=== PATIENT | male | born 1970 | race Caucasian/White ===

== ENCOUNTER 2021-10-03 12:25 | Inpatient (IN) | payer OTHER ==
[2021-10-03] MEDS ORDERED: SODIUM CHLORIDE 0.9% 1,000 ML IV ONE (16:05)
[2021-10-03] MEDS ORDERED: ASPIRIN 81 MG ONE (16:24)
[2021-10-03 16:40] LABS: Glucose,Whole Blood 129 mg/dL (75-99)
[2021-10-03] MEDS ORDERED: VERAPAMIL 2.5 MG/ML 2 ML AMP ONE (16:41)
[2021-10-03] MEDS ORDERED: LIDOCAINE 1% INJ 10MG/ML (20 ML MDV) ONE (16:41)
[2021-10-03] MEDS ORDERED: HEPARIN SODIUM 1,000 UN/ML (10ML VL) ONE (16:41)
[2021-10-03] MEDS ORDERED: HEPARIN SODIUM,PORCINE 30 ML 30 ML ONE (16:42)
[2021-10-03] MEDS ORDERED: MIDAZOLAM 2 MG/2 ML VIAL IV ONE (17:42)
[2021-10-03] MEDS ORDERED: LIDOCAINE 1% INJ 10MG/ML (10 ML MDV) SQ ONE (17:43)
[2021-10-03] MEDS ORDERED: VERAPAMIL SYRINGE (5 MG/10 ML) INTRAARTER ONE ×2 (17:45→17:52)
[2021-10-03] MEDS: HEPARIN SODIUM 1,000 UN/ML (10ML VL) IV ONE ×2 (17:56→18:10)
[2021-10-03] MEDS ORDERED: IOPAMIDOL-370 100ML BTL INJ ONE (18:11)
[2021-10-03] MEDS ORDERED: VERAPAMIL SYRINGE (5 MG/10 ML) IV ONE (18:13)
[2021-10-03] MEDS ORDERED: RX INFO: IV CONTRAST WAS GIVEN 1 EACH MISC MISCELLANE PRN (18:21)
[2021-10-03] MEDS ORDERED: SODIUM CHLORIDE 0.9% 1,000 ML IV SCH (18:30)
--- NOTE | 2021-10-03 18:52 | CC ---
CARDIAC CATHETERIZATION REPORT DATE OF SERVICE: 10/03/2021 PERFORMING PHYSICIAN: Benja Bello M.D. PROCEDURES PERFORMED: 1. Selective right and left coronary angiogram. 2. Left heart catheterization. 3. Ultrasound-guided access of the right common femoral artery. INDICATION: This is a 51-year-old gentleman with coronary artery disease and prior revascularization performed several years ago. The patient is not quite sure about the date and does not have any further information about the location where the angioplasty and stenting were performed. He presented to [facility] Emergency Department complaining of chest discomfort for the last few days. He was ruled out for acute coronary event. EKG showed sinus rhythm with T-wave inversion in the high lateral and lateral leads. He underwent a myocardial perfusion imaging stress test and that showed lateral ischemia. In light of that, a heart catheterization was performed. APPROACH: Right radial artery. COMPLICATIONS: None. LEVEL OF SEDATION: Moderate, with sedation length of 32 minutes. PROCEDURE DESCRIPTION: After obtaining informed consent, the patient was brought to the cardiac dental lab technician. The right radial artery was cannulated using micropuncture technique under ultrasound guidance. The micropuncture wire passed easily. Then I placed a 6-Algerian sheath in the right radial artery. I gave the patient 2 mg of verapamil IA and a total of 8000 units of heparin IV. I did selective right and left coronary angiogram using JR4 and JL3.5 catheters. Left heart catheterization was performed using the JR4 catheter, which crossed the aortic valve. Then I did pullback across the valve. The procedure was completed without any complication. SELECTIVE CORONARY ANGIOGRAM: 1. The right coronary artery is a large-caliber vessel and it is a dominant vessel. The RCA is chronically occluded. It fills by bridging collaterals from the left coronary system. 2. The left main is a large left main. It furcates into left circumflex and ramus intermedius and left anterior descending artery. 3. The left circumflex is a large-caliber vessel. It is a nondominant vessel. The proximal left circumflex is angiographically normal. It gives rise to a large OM branch which has a tubular lesion that appeared to be in the range of 80%. The left circumflex continues after that as a moderate-caliber vessel in the AV groove. 4. The ramus intermedius is a large-caliber vessel. The ostial ramus has a lesion, critical, appeared to be in the range of 90% to 95%. 5. The LAD. The proximal LAD appeared to be angiographically normal. The mid LAD has a tubular lesion that appeared to be in the range of 70%. The mid to distal LAD has another tubular lesion that appeared to be in the range of 70% to 80%. The LAD gives rise to a large diagonal branch which has a lesion also in the mid portion that appeared to be in the range of 80%. 6. HEMODYNAMICS: The LVEDP was about 25 mmHg with no significant gradient across the aortic valve. CONCLUSION: 1. Severe triple-vessel coronary artery disease. 2. Chronic total occlusion of the RCA which fills by collaterals from the left coronary system. 3. Critical disease involving the first obtuse marginal branch of the left circumflex. 4. Critical disease involving the ostial ramus intermedius. 5. Intermediate to severe disease involving the mid as well as mid to distal LAD. 6. Elevated left-sided filling pressure. POST-PROCEDURE MANAGEMENT: 1. Given the above anatomy, I advised the patient to be seen by a surgeon for the evaluation of coronary artery bypass grafting. 2. Obtain the previous medical records from [facility]. MMODL / IJN: [id number] /
[2021-10-03] MEDS ORDERED: MELATONIN 3 MG TABLET PO PRN (19:36)
[2021-10-03] MEDS ORDERED: NALOXONE 0.4 MG/ML 1 ML VIAL IV PRN (19:36)
[2021-10-03] MEDS ORDERED: CALCIUM CARBONATE 500 MG CHEWABLE PO PRN (19:36)
[2021-10-03] MEDS ORDERED: LORazepam 0.5 MG TAB PO PRN (19:36)
[2021-10-03] MEDS ORDERED: LACTULOSE 20 GM/30 ML CUP PO PRN (19:36)
[2021-10-03] MEDS ORDERED: ACETAMINOPHEN TAB 325 MG TAB PO PRN (19:36)
[2021-10-03] MEDS ORDERED: ONDANSETRON 4 MG/2 ML VIAL IVP PRN (19:36)
[2021-10-03] MEDS ORDERED: METOPROLOL TARTRATE 50 MG TAB PO SCH (21:00)
[2021-10-03] MEDS: INSULIN ASPART (NovoLOG) 100 UNIT/ML VIAL SQ SCH (21:15)
[2021-10-03 23:23] LABS: Calcium 8.5 mg/dL (8.4-10.2); Potassium 4.4 mmol/L (3.5-5.1)
[2021-10-04] MEDS ORDERED: SODIUM CHLORIDE 0.9% 1,000 ML IV SCH (06:47)
[2021-10-04] MEDS ORDERED: ALPRAZolam 0.25 MG TAB PO PRN (06:47)
[2021-10-04] MEDS ORDERED: ATORVASTATIN 80 MG TAB PO STA (06:47)
[2021-10-04] MEDS ORDERED: ALPRAZolam 0.5 MG TAB PO PRN (06:47)
[2021-10-04] MEDS ORDERED: ASPIRIN 325 MG TAB PO STA (06:47)
[2021-10-04] MEDS ORDERED: RX INFO: IV CONTRAST WAS GIVEN 1 EACH MISC MISCELLANE PRN (06:47)
[2021-10-04] MEDS: PANTOPRAZOLE 40 MG TABLET PO SCH (07:07)
[2021-10-04 07:09] LABS: Glucose,Whole Blood 118 mg/dL (75-99)
[2021-10-04] MEDS: METOPROLOL TARTRATE 25 MG TAB PO SCH ×2 (08:32→20:51)
[2021-10-04] MEDS: lisinopriL 20 MG TAB PO SCH (08:32)
[2021-10-04] MEDS: SPIRONOLACTONE 25 MG TAB PO SCH (08:33)
[2021-10-04] MEDS: amLODIPine 5 MG TAB PO SCH (08:33)
[2021-10-04] MEDS: allopurinoL 100 MG TAB PO SCH (08:33)
[2021-10-04] MEDS: ASPIRIN 325 MG TAB PO SCH (08:34)
[2021-10-04] MEDS: ISOSORBIDE MONONITRATE ER 60 MG TAB.ER.24H PO SCH (08:40)
[2021-10-04 08:43] LABS: Basophils # (A) 0.1 k/uL (0-0.2); Basophils % (A) 1 %; Eosinophils # (A) 0.3 k/uL (0-0.7); Eosinophils % (A) 5 %; HCT 35.8 % (39.0-53.0); HGB 11.9 gm/dL (13.0-17.5); Hypochromasia Slight; Lymphocytes # (A) 1.2 k/uL (1.0-4.8); Lymphocytes % (A) 20 %; MCH 30.2 pg (25.0-35.0); MCHC 33.1 g/dL (31.0-37.0); MCV 91.3 fL (80.0-100.0); Mean Platelet Volume 7.8; Monocytes # (A) 0.3 k/uL (0-1.0); Monocytes % (A) 5 %; Neutrophils # (A) 4.3 k/uL (1.3-7.7); Neutrophils % (A) 69 %; Platelet Count 189 k/uL (150-450); RBC 3.93 m/uL (4.30-5.90); RDW 14.2 % (11.5-15.5); WBC 6.3 k/uL (3.8-10.6)
[2021-10-04 08:53] LABS: ALT 15 U/L (4-49); AST 22 U/L (17-59); African American GFR (CKD) 59 (>60 ml/min/1.73 sqM); Albumin 3.6 g/dL (3.5-5.0); Alkaline Phosphatase 72 U/L (38-126); Anion Gap 6 mmol/L; Blood Urea Nitrogen 28 mg/dL (9-20); Calcium 8.7 mg/dL (8.4-10.2); Carbon Dioxide 25 mmol/L (22-30); Chloride 108 mmol/L (98-107); Glucose 137 mg/dL (74-99); Magnesium 1.7 mg/dL (1.6-2.3); Non-African American GFR(CKD) 51 (>60 ml/min/1.73 sqM); Potassium 4.6 mmol/L (3.5-5.1); Sodium 139 mmol/L (137-145); Total Bilirubin 0.4 mg/dL (0.2-1.3); Total Protein 6.5 g/dL (6.3-8.2)
[2021-10-04] MEDS ORDERED: glipiZIDE 5 MG TAB PO SCH (09:00)
[2021-10-04] MEDS ORDERED: ATORVASTATIN 20 MG TAB PO SCH (09:00)
--- NOTE | 2021-10-04 09:12 | XR ---
EXAMINATION TYPE: XR chest 2V DATE OF EXAM: 10/04/2021 COMPARISON: NONE HISTORY: Preop open heart surgical study study. TECHNIQUE: Frontal and lateral views of the chest are obtained. FINDINGS: There is no focal air space opacity, pleural effusion, or pneumothorax seen. The cardiac silhouette size is upper limits of normal. Overlying EKG leads. The osseous structures are intact. IMPRESSION: No acute cardiopulmonary process.
[2021-10-04 09:38] LABS: INR 0.9 (<1.2); Partial Thromboplastin Time 23.6 sec (22.0-30.0); Prothrombin Time 9.9 sec (9.0-12.0)
--- NOTE | 2021-10-04 09:38 | P.GSCN ---
History of Present Illness Consult date: 10/04/21 Reason for Consult: Triple-vessel coronary artery disease Requesting physician: Benja Bello History of present illness: This is a 51-year-old gentleman who was recently released from 15 years incarceration approximate 3 months ago, who follows on an outpatient basis with Dr. Hansen for primary care. He has a previous medical history of coronary artery disease with myocardial infarction and previous stenting 5, most recently 2008, hypertension, hyperlipidemia, fqu-nqtjhtj-tcfibecsh diabetes, chronic kidney disease stage III, obstructive sleep apnea currently not using CPAP, anemia, gout, GERD, current light tobacco dependence, and family history of premature coronary artery disease with both parents diagnosed before the age of 60. He experienced an episode of chest pain with shortness of breath and lightheadedness which woke him from sleep. He states the pain was similar to his past heart attack. He presented to [facility] for evaluation and treatment. His troponin was negative. He was recommended to undergo stress testing which demonstrated lateral ischemia. Subsequently he was transported to [facility] for cardiac catheterization which demonstrated chronic total occlusion of right coronary artery with collateral circulation from the left system, mid LAD stenosis 70%, distal LAD stenosis 70-80%, ostial ramus 90-95%, and obtuse marginal stenosis 80%. Due to these findings consultation was placed to cardiothoracic surgery for surgical revascularization recommendations. Review of Systems Review of systems was completed and was negative except as noted - Cardiovascular Reports as per HPI, Reports chest pain, Reports dyspnea on exertion, Reports leg edema, Reports lightheadedness, Reports shortness of breath Past Medical History Past Medical History: Asthma, Coronary Artery Disease (CAD), Chest Pain / Angina, Heart Failure, Diabetes Mellitus, GERD/Reflux, Hyperlipidemia, Hypertension, Myocardial Infarction ([place]), Renal Disease, Sleep Apnea/CPAP/BIPAP Last Myocardial Infarction Date:: 2008 History of Any Multi-Drug Resistant Organisms: None Reported Past Surgical History: Adenoidectomy, Heart Catheterization With Stent, Tonsillectomy Additional Past Surgical History / Comment(s): cardiac stents x 5 Past Anesthesia/Blood Transfusion Reactions: Postoperative Nausea & Vomiting (PONV) Past Psychological History: ADD/ADHD, Anxiety, Bipolar, Depression, PTSD Smoking Status: Current every day smoker Past Alcohol Use History: None Reported Past Drug Use History: None Reported Additional History: Reportedly smokes 3-4 cigarettes per day, has smoked for the last 40 years, states he quit ranking and all drugs 30 years ago - Past Family History Father Family Medical History: Cancer, Coronary Artery Disease (CAD), Myocardial Infarction ([place]) Additional Family Medical History / Comment(s): at age 68 from mesothelioma, diagnosis of heart disease age of 60 Mother Family Medical History: Cancer, Coronary Artery Disease (CAD), Diabetes Mellitus, Liver Disease, Myocardial Infarction ([place]) Additional Family Medical History / Comment(s): from liver cancer, diagnosed with heart disease before the age of 60 Medications and Allergies Home Medications Medication Instructions Recorded Confirmed Type Allopurinol [Zyloprim] 100 mg PO DAILY 10/03/21 10/03/21 History Aspirin 325 mg PO DAILY 10/03/21 10/03/21 History Atorvastatin [Lipitor] 20 mg PO HS 10/03/21 10/03/21 History Isosorbide Mononitrate ER [Imdur] 60 mg PO DAILY 10/03/21 10/03/21 History Metoprolol Tartrate [Lopressor] 100 mg PO BID 10/03/21 10/03/21 History Omeprazole 20 mg PO AC-BRKFST 10/03/21 10/03/21 History Spironolactone 25 mg PO DAILY 10/03/21 10/03/21 History amLODIPine [Norvasc] 5 mg PO DAILY 10/03/21 10/03/21 History glipiZIDE [Glucotrol] 5 mg PO DAILY 10/03/21 10/03/21 History lisinopriL 40 mg PO DAILY 10/03/21 10/03/21 History Allergies Allergy/AdvReac Type Severity Reaction Status Date / Time Penicillins Allergy Swelling Verified 10/03/21 21:11 Sulfa (Sulfonamide Allergy Swelling Verified 10/03/21 21:11 Antibiotics) Surgical - Exam Vital Signs Pulse Resp BP Pulse Ox 60 18 142/88 96 10/03/21 16:05 10/03/21 16:05 10/03/21 16:05 10/03/21 16:05 CONSTITUTIONAL: Awake and alert, appears comfortable, cooperative, well- developed, well-nourished, no pain, no acute distress EYES: Pupils equal, round, reactive to light, normal ocular movement ENT: Moist mucous membranes without oral lesions present NECK: No masses, no bruits, trachea midline RESPIRATORY: Lungs sounds clear to auscultation bilaterally. Respirations even, nonlabored. Currently on room air with oxygen saturation 95%. Strong cough. No chest wall deformities. No clubbing or cyanosis present CARDIOVASCULAR: S1, S2 present. Regular rate and rhythm, sinus rhythm on telemetry. Palpable peripheral pulses bilaterally. Bilateral lower extremity edema present. No calf pain or tenderness noted. No significant lower ex tremity varicosities noted. GASTROINTESTINAL: Abdomen soft, nontender, nondistended without masses or organomegaly noted. There is no rebound or guarding present. Active bowel sounds present 4 quadrants. GENITOURINARY: Deferred INTEGUMENTARY: Skin is warm and dry with evidence of good perfusion. NEUROLOGIC: Cranial nerves II through XII intact, normal coordination, no obvious motor or sensory deficits, speech is normal MUSKULOSKELETAL: Able to move all extremities, strength equal bilaterally, normal posture PSYCHIATRIC: Alert and oriented to person place and time, appropriate affect, intact judgment and insight Results - Labs 10/04/21 08:03 10/04/21 08:03 Abnormal Lab Results - Last 24 Hours (Table) 10/03/21 10/03/21 10/04/21 Range/Units 16:39 22:02 07:04 RBC (4.30-5.90) m/uL Hgb (13.0-17.5) gm/dL Hct (39.0-53.0) % Sodium 136 L (137-145) mmol/L Chloride (98-107) mmol/L BUN 31 H (9-20) mg/dL Creatinine 1.61 H (0.66-1.25) mg/dL Glucose 162 H (74-99) mg/dL POC Glucose (mg/dL) 129 H 118 H (75-99) mg/dL 10/04/21 10/04/21 Range/Units 08:03 08:03 RBC 3.93 L (4.30-5.90) m/uL Hgb 11.9 L (13.0-17.5) gm/dL Hct 35.8 L (39.0-53.0) % Sodium (137-145) mmol/L Chloride 108 H (98-107) mmol/L BUN 28 H (9-20) mg/dL Creatinine 1.55 H (0.66-1.25) mg/dL Glucose 137 H (74-99) mg/dL POC Glucose (mg/dL) (75-99) mg/dL Diabetes panel 10/03/21 10/04/21 Range/Units 22:02 08:03 Sodium 136 L 139 (137-145) mmol/L Potassium 4.4 4.6 (3.5-5.1) mmol/L Chloride 106 108 H (98-107) mmol/L Carbon Dioxide 24 25 (22-30) mmol/L BUN 31 H 28 H (9-20) mg/dL Creatinine 1.61 H 1.55 H (0.66-1.25) mg/dL Glucose 162 H 137 H (74-99) mg/dL Calcium 8.5 8.7 (8.4-10.2) mg/dL AST 22 (17-59) U/L ALT 15 (4-49) U/L Alkaline Phosphatase 72 (38-126) U/L Total Protein 6.5 (6.3-8.2) g/dL Albumin 3.6 (3.5-5.0) g/dL Thyroid panel 10/04/21 Range/Units 08:03 TSH 1.670 (0.465-4.680) mIU/L Calcium panel 10/03/21 10/04/21 Range/Units 22:02 08:03 Calcium 8.5 8.7 (8.4-10.2) mg/dL Albumin 3.6 (3.5-5.0) g/dL Pituitary panel 10/03/21 10/04/21 Range/Units 22:02 08:03 Sodium 136 L 139 (137-145) mmol/L Potassium 4.4 4.6 (3.5-5.1) mmol/L Chloride 106 108 H (98-107) mmol/L Carbon Dioxide 24 25 (22-30) mmol/L BUN 31 H 28 H (9-20) mg/dL Creatinine 1.61 H 1.55 H (0.66-1.25) mg/dL Glucose 162 H 137 H (74-99) mg/dL Calcium 8.5 8.7 (8.4-10.2) mg/dL TSH 1.670 (0.465-4.680) mIU/L Adrenal panel 10/03/21 10/04/21 Range/Units 22:02 08:03 Sodium 136 L 139 (137-145) mmol/L Potassium 4.4 4.6 (3.5-5.1) mmol/L Chloride 106 108 H (98-107) mmol/L Carbon Dioxide 24 25 (22-30) mmol/L BUN 31 H 28 H (9-20) mg/dL Creatinine 1.61 H 1.55 H (0.66-1.25) mg/dL Glucose 162 H 137 H (74-99) mg/dL Calcium 8.5 8.7 (8.4-10.2) mg/dL Total Bilirubin 0.4 (0.2-1.3) mg/dL AST 22 (17-59) U/L ALT 15 (4-49) U/L Alkaline Phosphatase 72 (38-126) U/L Total Protein 6.5 (6.3-8.2) g/dL Albumin 3.6 (3.5-5.0) g/dL - Imaging Chest x-ray: report reviewed, image reviewed Additional studies: Heart catheterization films reviewed Assessment and Plan Assessment: 1. Coronary artery disease with previous myocardial infarction and previous stenting 5, most recently 2008, 2. Chest pain, shortness of breath secondary to above 3. Hypertension 4. Hyperlipidemia, 5. Gfm-gylstyr-khmhvgevw diabetes 6. Chronic kidney disease stage III 7. Obstructive sleep apnea currently not using CPAP 8. Anemia 9. Gout 10. GERD 11. Current light tobacco dependence 12. Family history of premature coronary artery disease with both parents diagnosed before the age of 60 13. Vaccinated and boosted against Covid Plan: The patient was seen and examined at the bedside on the cardiac stepdown unit sitting up eating breakfast in no acute distress. Chart/diagnostics were reviewed including available chart from [facility]. The case was discussed with Dr. Renee. The usual perioperative course of coronary artery bypass surgery was discussed in detail with the patient, risks and benefits were reviewed, all questions were answered. The patient does consent to surgery. Preoperative testing was initiated. Recommend continuing aspirin, statin, beta brandy therapy. We'll calculate STS risk score once all testing has been completed. 5 meter walk test completed, #1 5.77 sec, #2 5.84 sec, #3 5.51 sec. Medical management of other comorbidities per primary care service. More recommendations to follow. Thank you Dr. Lynn for this consult. We look forward to working with you in the care of your patient Time with Patient: Greater than 30
--- NOTE | 2021-10-04 10:09 | US ---
EXAMINATION TYPE: US carotid duplex BILAT DATE OF EXAM: 10/04/2021 COMPARISON: NONE CLINICAL HISTORY: preop cardiac surgery. pre op cardiac surgery EXAM MEASUREMENTS: RIGHT: Peak Systolic Velocity (PSV) cm/sec ----- Right CCA: 49.6 ----- Right ICA: 62.5 ----- Right ECA: 107.3 ICA/CCA ratio: 1.3 RIGHT: End Diastole cm/sec ----- Right CCA: 13.9 ----- Right ICA: 25.2 ----- Right ECA: 14.1 LEFT: Peak Systolic Velocity (PSV) cm/sec ----- Left CCA: 54.9 ----- Left ICA: 92.2 ----- Left ECA: 142.0 ICA/CCA ratio: 1.7 LEFT: End Diastole cm/sec ----- Left CCA: 17.4 ----- Left ICA: 37.3 ----- Left ECA: 14.4 VERTEBRALS (direction of flow): Right Vertebral: Antegrade Left Vertebral: Antegrade Rhythm: Normal Mild plaque bilateral bifurcations. slightly increased velocities left ECA Esparza scale images show mild peripheral eccentric plaque bilateral carotid bulb level . Velocity demetrius surements and ratios remain within normal limits. IMPRESSION: Mild atherosclerotic changes bilaterally without hemodynamically significant stenosis se en in either internal carotid artery . Criteria for Assigning % of Stenosis / Diameter reduction (Estimation based on the indirect measurements of the internal carotid artery velocities (ICA PSV). 1. Normal (no stenosis)=ICA PSV < 125 cm/s: ratio < 2.0: ICA EDV<40 cm/s. 2. Less than 50% stenosis=ICA PSV < 125 cm/s: ratio < 2.0: ICA EDV<40 cm/s. 3. 50 to 69% stenosis=ICA PSV of 125 to 230 cm/s: ration 2.0 ? 4.0: ICA EDV 40-100 cm/s. 4. Greater than 70% stenosis to near occlusion= ICA PSV > 230 cm/s: ratio > 4.0: ICA EDV > 100 cm/s. 5. Near occlusion= ICA PSV velocities may be low or undetectable: variable ratio and ICA EDV. 6. Total occlusion=unable to detect flow.
--- NOTE | 2021-10-04 10:53 | ECHOF ---
Referral Reason:preop cabg MEASUREMENTS -------- HEIGHT: 180.3 cm WEIGHT: 126.6 kg BP: IVSd: 1.5 cm (0.6 - 1.1) LVIDd: 4.4 cm (3.9 - 5.3) LVPWd: 1.8 cm (0.6 - 1.1) IVSs: 2.3 cm LVIDs: 2.0 cm LVPWs: 2.4 cm Ao Diam: 3.4 cm (2.0 - 3.7) AV Cusp: 1.8 cm (1.5 - 2.6) LA Diam: 2.8 cm (2.7 - 3.8) MV EXCURSION: 17.354 mm (> 18.000) MV EF SLOPE: 96 mm/s (70 - 150) EPSS: 1.0 cm MV E David: 0.63 m/s MV DecT: 270 ms MV A David: 0.50 m/s MV E/A Ratio: 1.27 RAP: 5.00 mmHg RVSP: 17.74 mmHg FINDINGS -------- This was a technically difficult study with suboptimal views. The left ventricular size is normal. There is moderate concentric left ventricular hypertrophy. O verall left ventricular systolic function is normal with, an EF between 55 - 60 %. The right ventricle is normal in size. The left atrial size is normal. The right atrial size is normal. Lumason used The aortic valve is trileaflet and appears structurally normal. The mitral valve is normal. Mild mitral regurgitation is present. The tricuspid valve appears structurally normal. Trace tricuspid regurgitation present. Right poncho tricular systolic pressure is normal at < 35 mmHg. There is no pulmonic regurgitation present. The aortic root size is normal. IVC Not well visulized. There is no pericardial effusion. CONCLUSIONS -------- 1. The left ventricular size is normal. 2. There is moderate concentric left ventricular hypertrophy. 3. Overall left ventricular systolic function is normal with, an EF between 55 - 60 %. 4. Mild mitral regurgitation is present. 5. Trace tricuspid regurgitation present. 6. There is no pericardial effusion. STAFF READINESS OFFICER: Karissa Moses [facility]
[2021-10-04] MEDS: INSULIN ASPART (NovoLOG) 100 UNIT/ML VIAL SQ SCH ×4 (11:33→20:51)
[2021-10-04 12:13] LABS: Glucose,Whole Blood 70 mg/dL (75-99)
[2021-10-04 12:18] LABS: Hepatitis A Antibody IgM Nonreactive (Nonreactive); Hepatitis B Core IgM Nonreactive (Nonreactive); Hepatitis B Surface Antigen Nonreactive (Nonreactive); Hepatitis C IgG Antibody Nonreactive (Nonreactive)
[2021-10-04 12:28] LABS: Glucose,Whole Blood 99 mg/dL (75-99)
--- NOTE | 2021-10-04 14:11 | P.CRDCN ---
History of Present Illness History of present illness: HISTORY OF PRESENTING ILLNESS Patient is a pleasant 51-year-old male with history of coronary artery disease with prior myocardial infarction and stenting most recently in 2008, hypertension, hyperlipidemia, diabetes mellitus, COPD, obstructive sleep apnea, anemia, tobacco abuse who has been having intermittent chest pain and therefore underwent stress testing which was abnormal. He was transferred from [facility] and had heart catheterization which showed multivessel disease and therefore CABG workup was recommended. Carotid ultrasound performed today showed some mild disease bilaterally. Echo performed yesterday shows EF 55-60%. PHYSICAL EXAMINATION Vital signs reviewed. CONSTITUTIONAL: No apparent distress. HEENT: Head is normocephalic. Pupils are equal, round. Sclerae anicteric. Mucous membranes of the mouth are moist. No JVD. No carotid bruit. CHEST EXAMINATION: Lungs are clear to auscultation. No chest wall tenderness is noted on palpation or with deep breathing. HEART EXAMINATION: Regular rate and rhythm. S1, S2 heard. No murmurs, gallops or rub. ABDOMEN: Soft, nontender. Positive bowel sounds. EXTREMITIES: 2+ peripheral pulses, no lower extremity edema and no calf tenderness. NEUROLOGIC EXAMINATION: Patient is awake, alert and oriented x3. ASSESSMENT 1. Multivessel CAD 2. Chest pain concerning for unstable angina 3. Hypertension 4. Hyperlipidemia 5. Diabetes mellitus type 2 6. Tobacco abuse 7. COPD 8. Mild CKD PLAN Continue with surgical workup for CABG. Echo shows preserved EF without significant valvular disease. Continue with aspirin and increase Lipitor to a high intensity statin with 40 mg daily. Continue beta brandy with metoprolol 25 mg twice a day. Monitor for any recurrence of chest pain. Further recommendations to follow. Past Medical History Past Medical History: Asthma, Coronary Artery Disease (CAD), Chest Pain / Angina, Heart Failure, Diabetes Mellitus, GERD/Reflux, Hyperlipidemia, Hypertension, Myocardial Infarction ([place]), Renal Disease, Sleep Apnea/CPAP/BIPAP Last Myocardial Infarction Date:: 2008 History of Any Multi-Drug Resistant Organisms: None Reported Past Surgical History: Adenoidectomy, Heart Catheterization With Stent, Tonsillectomy Additional Past Surgical History / Comment(s): cardiac stents x 5 Past Anesthesia/Blood Transfusion Reactions: Postoperative Nausea & Vomiting (PONV) Past Psychological History: ADD/ADHD, Anxiety, Bipolar, Depression, PTSD Smoking Status: Current every day smoker Past Alcohol Use History: None Reported Past Drug Use History: None Reported - Past Family History Father Family Medical History: Cancer, Coronary Artery Disease (CAD), Myocardial Infarction ([place]) Additional Family Medical History / Comment(s): at age 68 from mesothelioma, diagnosis of heart disease age of 60 Mother Family Medical History: Cancer, Coronary Artery Disease (CAD), Diabetes Mellitus, Liver Disease, Myocardial Infarction ([place]) Additional Family Medical History / Comment(s): from liver cancer, diagnosed with heart disease before the age of 60 Medications and Allergies Home Medications Medication Instructions Recorded Confirmed Type Allopurinol [Zyloprim] 100 mg PO DAILY 10/03/21 10/03/21 History Aspirin 325 mg PO DAILY 10/03/21 10/03/21 History Atorvastatin [Lipitor] 20 mg PO HS 10/03/21 10/03/21 History Isosorbide Mononitrate ER [Imdur] 60 mg PO DAILY 10/03/21 10/03/21 History Metoprolol Tartrate [Lopressor] 100 mg PO BID 10/03/21 10/03/21 History Omeprazole 20 mg PO AC-BRKFST 10/03/21 10/03/21 History Spironolactone 25 mg PO DAILY 10/03/21 10/03/21 History amLODIPine [Norvasc] 5 mg PO DAILY 10/03/21 10/03/21 History glipiZIDE [Glucotrol] 5 mg PO DAILY 10/03/21 10/03/21 History lisinopriL 40 mg PO DAILY 10/03/21 10/03/21 History Allergies Allergy/AdvReac Type Severity Reaction Status Date / Time Penicillins Allergy Swelling Verified 10/03/21 21:11 Sulfa (Sulfonamide Allergy Swelling Verified 10/03/21 21:11 Antibiotics) Physical Exam Vitals: Vital Signs Temp Pulse Pulse Resp BP BP Pulse Ox 10/04/21 12:00 97.5 F L 60 18 146/80 97 10/04/21 08:30 98.1 F 56 L 16 138/80 97 10/04/21 04:00 98.1 F 59 L 18 135/82 95 10/04/21 01:24 56 L 18 10/04/21 00:00 98.2 F 56 L 18 119/65 10/03/21 20:00 98.1 F 59 L 59 L 18 127/77 98 10/03/21 18:51 57 L 16 168/78 96 10/03/21 18:41 98.7 F 10/03/21 18:36 63 16 161/79 98 10/03/21 16:05 60 18 142/88 145/85 96 Intake and Output 10/03/21 10/04/21 10/04/21 22:59 06:59 14:59 Intake Total 650 240 Balance 650 240 Intake: IV 650 Oral 240 Other: # Voids 1 Weight 127 kg Results 10/04/21 08:03 10/04/21 08:03 Cardiac Enzymes 10/04/21 Range/Units 08:03 AST 22 (17-59) U/L Coagulation 10/04/21 Range/Units 08:03 PT 9.9 (9.0-12.0) sec APTT 23.6 (22.0-30.0) sec CBC 10/04/21 Range/Units 08:03 WBC 6.3 (3.8-10.6) k/uL RBC 3.93 L (4.30-5.90) m/uL Hgb 11.9 L (13.0-17.5) gm/dL Hct 35.8 L (39.0-53.0) % Plt Count 189 (150-450) k/uL Comprehensive Metabolic Panel 10/03/21 10/04/21 Range/Units 22:02 08:03 Sodium 136 L 139 (137-145) mmol/L Potassium 4.4 4.6 (3.5-5.1) mmol/L Chloride 106 108 H (98-107) mmol/L Carbon Dioxide 24 25 (22-30) mmol/L BUN 31 H 28 H (9-20) mg/dL Creatinine 1.61 H 1.55 H (0.66-1.25) mg/dL Glucose 162 H 137 H (74-99) mg/dL Calcium 8.5 8.7 (8.4-10.2) mg/dL AST 22 (17-59) U/L ALT 15 (4-49) U/L Alkaline Phosphatase 72 (38-126) U/L Total Protein 6.5 (6.3-8.2) g/dL Albumin 3.6 (3.5-5.0) g/dL Current Medications Generic Name Dose Route Start Last Admin Trade Name Freq PRN Reason Stop Dose Admin Acetaminophen 650 mg 10/03/21 19:36 Acetaminophen Tab 325 Mg Tab PO Q6HR PRN Mild Pain or Fever > 100.5 Allopurinol 100 mg 10/04/21 09:00 10/04/21 08:33 Allopurinol 100 Mg Tab PO 100 mg DAILY [facility] Administration Alprazolam 0.25 mg 10/04/21 06:47 Alprazolam 0.25 Mg Tab PO Q6HR PRN Mild Anxiety Alprazolam 0.5 mg 10/04/21 06:47 Alprazolam 0.5 Mg Tab PO Q6HR PRN Moderate Anxiety Amlodipine Besylate 5 mg 10/04/21 09:00 10/04/21 08:33 Amlodipine 5 Mg Tab PO 5 mg DAILY [facility] Administration Aspirin 325 mg 10/04/21 09:00 10/04/21 08:34 Aspirin 325 Mg Tab PO Not Given DAILY NAYELY Atorvastatin Calcium 20 mg 10/04/21 09:00 10/04/21 08:34 Atorvastatin 20 Mg Tab PO Not Given DAILY [facility] Calcium Carbonate/Glycine 1,000 mg 10/03/21 19:36 Calcium Carbonate 500 Mg Chewable PO Q4HR PRN Dyspepsia Glipizide 5 mg 10/04/21 09:00 10/04/21 08:32 Glipizide 5 Mg Tab PO 5 mg DAILY [facility] Administration Sodium Chloride 1,000 ml/ IV 1,000 mls @ 127 mls/hr 10/04/21 06:47 Solution IV .Q7H53M NAYELY 1 ML/KG/HR Insulin Aspart 0 unit 10/03/21 21:00 10/04/21 12:27 Insulin Aspart (Novolog) 100 Unit/Ml Vial SQ Not Given ACHS [facility] Protocol Isosorbide Mononitrate 60 mg 10/04/21 09:00 10/04/21 08:40 Isosorbide Mononitrate Er 60 Mg Tab.Er.24h PO 60 mg DAILY [facility] Administration Lactulose 20 gm 10/03/21 19:36 Lactulose 20 Gm/30 Ml Cup PO DAILY PRN Constipation Lisinopril 40 mg 10/04/21 09:00 10/04/21 08:32 Lisinopril 20 Mg Tab PO 40 mg DAILY NAY[facility] Administration Lorazepam 0.5 mg 10/03/21 19:36 Lorazepam 0.5 Mg Tab PO Q6HR PRN Anxiety Melatonin 3 mg 10/03/21 19:36 Melatonin 3 Mg Tablet PO HS PRN Insomnia Metoprolol Tartrate 25 mg 10/04/21 09:00 10/04/21 08:32 Metoprolol Tartrate 25 Mg Tab PO 25 mg BID NAYELY Administration Miscellaneous Information 1 each 10/03/21 18:21 Rx Info: Iv Contrast Was Given [address] [facility] MISCELLANE 10/05/21 18:21 DAILY PRN Per Protocol Miscellaneous Information 1 each 10/04/21 06:47 Rx Info: Iv Contrast Was Given [address] [facility] MISCELLANE 10/06/21 18:18 DAILY PRN Per Protocol Mupirocin 1 applic 10/04/21 21:00 Mupirocin 2% Oint 22 Gm Tube NASAL BID [facility] Protocol Naloxone HCl 0.2 mg 10/03/21 19:36 Naloxone 0.4 Mg/Ml 1 Ml Vial IV Q2M PRN Opioid Reversal Nitroglycerin 0.4 mg 10/04/21 06:47 Nitroglycerin Sl Tabs 0.4 Mg Tab SUBLINGUAL Q5M PRN Chest Pain Ondansetron HCl 4 mg 10/03/21 19:36 Ondansetron 4 Mg/2 Ml Vial IVP Q8HR PRN Nausea And Vomiting Pantoprazole Sodium 40 mg 10/04/21 07:30 10/04/21 07:07 Pantoprazole 40 Mg Tablet PO 40 mg AC-BRKFST [facility] Administration Spironolactone 25 mg 10/04/21 09:00 10/04/21 08:33 Spironolactone 25 Mg Tab PO 25 mg DAILY [facility] Administration Intake and Output 10/03/21 10/04/21 10/04/21 22:59 06:59 14:59 Intake Total 650 240 Balance 650 240 Intake: IV 650 Oral 240 Other: # Voids 1 Weight 127 kg 10/04/21 08:03 10/04/21 08:03
--- NOTE | 2021-10-04 14:36 | P.CNPUL ---
History of Present Illness Consult date: 10/04/21 Requesting physician: Reggie Bravo Reason for consult: dyspnea, chest pain Chief complaint: Coronary artery disease. History of present illness: Pulmonary/critical care consult dated 10/04/2021. 51-year-old male with history of CAD, prior myocardial infarction, and stenting, 2008, as well as hypertension, hyperlipidemia, diabetes, COPD, sleep apnea, anemia, and chronic tobacco use, who had a catheterization at [facility]. It showed multivessel coronary artery disease, and the patient is apparently being evaluated for possible eye past grafting. The patient's currently not receiving any supplemental oxygen. The patient is on saline IV at [facility]. He has smoked for many years. The patient apparently has recently been out of detention, and is currently wearing a tender. He apparently has been incarcerated for 15 years. She denies any shortness of breath, cough, wheezing, or phlegm production. He denies ever being diagnosed as having COPD. Currently labs include a white count 6.3, hemoglobin 11.9, hematocrit 35.8, and a platelet count of 189,000. Sodium 139, potassium 4.6, chlorides 108, CO2 25, anion gap 6, BUN 28, creatinine 1.55. Testing for coronavirus was negative. TSH is normal. Chest x-ray shows no acute pulmonary process. Review of Systems REVIEW OF SYSTEMS: CONSTITUTIONAL: [Negative.] NEUROLOGIC: Lightheadedness. HEENT: [ Negative.] CARDIAC: Chest pain. PULMONARY: Shortness of breath. GI: [Negative.] : [Negative.] RHEUMATOLOGIC: [ Negative.] IMMUNOLOGIC: [ Negative.] ENDOCRINE: [Negative. ] DERMATOLOGIC: [Negative.] Past Medical History Past Medical History: Asthma, Coronary Artery Disease (CAD), Chest Pain / Angina, Heart Failure, Diabetes Mellitus, GERD/Reflux, Hyperlipidemia, Hypertension, Myocardial Infarction ([place]), Renal Disease, Sleep Apnea/CPAP/BIPAP Last Myocardial Infarction Date:: 2008 History of Any Multi-Drug Resistant Organisms: None Reported Past Surgical History: Adenoidectomy, Heart Catheterization With Stent, Tonsillectomy Additional Past Surgical History / Comment(s): cardiac stents x 5 Past Anesthesia/Blood Transfusion Reactions: Postoperative Nausea & Vomiting (PONV) Past Psychological History: ADD/ADHD, Anxiety, Bipolar, Depression, PTSD Smoking Status: Current every day smoker Past Alcohol Use History: None Reported Past Drug Use History: None Reported - Past Family History Father Family Medical History: Cancer, Coronary Artery Disease (CAD), Myocardial Infarction ([place]) Additional Family Medical History / Comment(s): at age 68 from mesothelioma, diagnosis of heart disease age of 60 Mother Family Medical History: Cancer, Coronary Artery Disease (CAD), Diabetes Mellitus, Liver Disease, Myocardial Infarction ([place]) Additional Family Medical History / Comment(s): from liver cancer, diagnosed with heart disease before the age of 60 Medications and Allergies Home Medications Medication Instructions Recorded Confirmed Type Allopurinol [Zyloprim] 100 mg PO DAILY 10/03/21 10/03/21 History Aspirin 325 mg PO DAILY 10/03/21 10/03/21 History Atorvastatin [Lipitor] 20 mg PO HS 10/03/21 10/03/21 History Isosorbide Mononitrate ER [Imdur] 60 mg PO DAILY 10/03/21 10/03/21 History Metoprolol Tartrate [Lopressor] 100 mg PO BID 10/03/21 10/03/21 History Omeprazole 20 mg PO AC-BRKFST 10/03/21 10/03/21 History Spironolactone 25 mg PO DAILY 10/03/21 10/03/21 History amLODIPine [Norvasc] 5 mg PO DAILY 10/03/21 10/03/21 History glipiZIDE [Glucotrol] 5 mg PO DAILY 10/03/21 10/03/21 History lisinopriL 40 mg PO DAILY 10/03/21 10/03/21 History Allergies Allergy/AdvReac Type Severity Reaction Status Date / Time Penicillins Allergy Swelling Verified 10/03/21 21:11 Sulfa (Sulfonamide Allergy Swelling Verified 10/03/21 21:11 Antibiotics) Physical Exam Osteopathic Statement: *. No significant issues noted on an osteopathic structural exam other than those noted in the History and Physical/Consult. Vitals: Vital Signs Temp Pulse Pulse Resp BP BP Pulse Ox 10/04/21 12:00 97.5 F L 60 18 146/80 97 10/04/21 08:30 98.1 F 56 L 16 138/80 97 10/04/21 04:00 98.1 F 59 L 18 135/82 95 10/04/21 01:24 56 L 18 10/04/21 00:00 98.2 F 56 L 18 119/65 10/03/21 20:00 98.1 F 59 L 59 L 18 127/77 98 10/03/21 18:51 57 L 16 168/78 96 10/03/21 18:41 98.7 F 10/03/21 18:36 63 16 161/79 98 10/03/21 16:05 60 18 142/88 145/85 96 Intake and Output 10/03/21 10/04/21 10/04/21 22:59 06:59 14:59 Intake Total 650 240 Balance 650 240 Intake: IV 650 Oral 240 Other: # Voids 1 Weight 127 kg No acute distress, oriented 3. Not on any supplemental oxygen. Saturations are 97%. HEENT examination is grossly unremarkable. Neck supple. Full range of motion. No adenopathy thyromegaly or neck vein distention. Cardiovascular examination reveals regular rhythm rate. S1-S2 normal. No S3 or S4. No discernible murmur noted. Heart rate 60 bpm. Lungs reveal clear breath sounds. Breath sounds are equal bilaterally. No adventitious lung sounds including wheezes rhonchi or crackles. Abdomen soft bowel sounds are heard. No masses or tenderness. Extremities are intact. No cyanosis clubbing or edema. He is wearing a tether on his ankle. Skin is without rash or lesion. Neurologic examination is brief but nonfocal. Results - Laboratory Findings CBC and BMP: 10/04/21 08:03 10/04/21 08:03 PT/INR, D-dimer PT 9.9 sec (9.0-12.0) 10/04/21 08:03 INR 0.9 (<1.2) 10/04/21 08:03 Abnormal lab findings: Abnormal Labs 10/03/21 10/03/21 10/04/21 16:39 22:02 07:04 RBC Hgb Hct Sodium 136 L Chloride BUN 31 H Creatinine 1.61 H Glucose 162 H POC Glucose (mg/dL) 129 H 118 H 10/04/21 10/04/21 10/04/21 08:03 08:03 12:09 RBC 3.93 L Hgb 11.9 L Hct 35.8 L Sodium Chloride 108 H BUN 28 H Creatinine 1.55 H Glucose 137 H POC Glucose (mg/dL) 70 L - Diagnostic Findings Chest x-ray: image reviewed Assessment and Plan Assessment: Multivessel coronary artery disease, with anticipated bypass grafting, next week. History of CAD, with previous stent placement. History of myocardial infarction, 2009. Essential hypertension. Hyperlipidemia. Diabetes mellitus. Suspected COPD from chronic tobacco use. Sleep apnea syndrome. History of anemia. Plan: Plan dated 10/04/2021. The patient is counseled about the importance of smoking cessation. The patient will have a bedside spirometry. Additional recommendations and suggestions are forthcoming. I did explain to the patient, our role in bypass grafting and open-heart patient's. He did seem to understand. We'll continue to follow. He denies a prior history of chronic lung disease. He is a heavy smoker and is been smoking for many years. He states he is down to 3 or 4 cigarettes a day. Time with Patient: Greater than 30
[2021-10-04 17:28] LABS: Glucose,Whole Blood 103 mg/dL (75-99)
--- NOTE | 2021-10-04 19:02 | P.HPIM ---
History of Present Illness H&P Date: 10/04/21 Chief Complaint: Chest pain Presenting complaint: Chest pain History of presenting complaint: This is a 51-year-old patient was chronic stable medical conditions include diab etes mellitus type 2, hypertension, CK D stage III, GERD, gout with known coronary artery disease and prior 5 stents. Patient had been present for 15 years really has not prolonged cold. He was being followed at the halfway physician. Patient presented to [facility] with chest hour left- sided precordial pain. Admitted with unstable angina. Put on IV heparin. Troponins were negative. Patient was transferred to [facility] in [place] for further intervention. Patient had a nuclear stress test that showed reversibility. Patient yesterday underwent cardiac catheterization was found to have triple-vessel disease. Cardiothoracic surgery's been consulted. Currently no chest pain. 2-D echo showed EF of 55-60% Review of systems: GEN.: Tired EYES: None HEENT: None NECK: None RESPIRATORY: Some shortness of breath CARDIOVASCULAR: As above GASTROINTESTINAL: None GENITOURINARY: None MUSCULOSKELETAL: None LYMPHATICS: None HEMATOLOGICAL: None PSYCHIATRY: None NEUROLOGICAL: None Past medical history to include: Diabetes mellitus type 2, CAD with 5 stents, hypertension, CK D stage III, GERD, gout, obstructive sleep apnea, bipolar Social history: Patient average 3-4 packs a day for close to 40 years. Now a few cigarettes a day. Currently living at half a house. Was in the halfway doctor recently for last 15 years. Family history: Mesothelioma, heart disease Physical examination: VITAL SIGNS: 97.5, 60, 18, 146/80, 97% room air GENERAL: BMI 40.2, reclining, awake, comfortable. EYES: Pupils equal. Conjunctiva normal. HEENT: External appearance of nose and ears normal, oral cavity grossly normal. NECK: JVD not raised; masses not palpable. HEART: First and second heart sounds are normal; no edema. LUNGS: Respiratory rate normal; decreased breath sounds. ABDOMEN: Soft, nontender, liver spleen not palpable, no masses palpable. PSYCH: Alert and oriented x3; mood and affect normal. NEUROLOGICAL: Cranial nerves grossly intact; no facial asymmetry, power and sensation grossly intact. LYMPHATICS: No lymph nodes palpable in the axilla and neck INVESTIGATIONS, reviewed in the clinical context: White count is 6.3 hemoglobin 11.9 platelets 189 sodium 139 potassium 4.6 BUN 28 creatinine 1.55 Accu-Cheks noted HbA1c 6.3 TSH 1.6 Acute hepatitis panel for A, B, and C: Not reactive Coronavirus [PCR]: Not detected 2-D echocardiogram: Moderate concentric LVH. EF 55-60% Chest x-ray film personally reviewed by me-cardiomegaly. Telemetry tracings personally reviewed by me: Sinus rhythm, T-wave changes Assessment and plan: -Unstable angina in a patient with known coronary artery disease -Triple-vessel coronary artery disease following cardiac catheterization Being evaluated by cardiothoracic surgery for coronary bypass -Coronary artery disease with prior 5 stents Aspirin 325 mg a day, Lipitor 40 mg daily, Zestril 40 mg daily, Lopressor 25 mg twice a day -COPD in a previous smoker DuoNeb 3 times a day -Chronic kidney disease stage III likely from diabetic nephropathy and nephrosclerosis Follow renal function closely. Given cardiac catheterization IV fluids. -Diabetes mellitus type 2 on oral hypoglycemic Hold glipizide. Start Levemir.. Follow Accu-Cheks -Essential hypertension Amlodipine 5 mg a day Lopressor 25 mg twice a day Zestril 40 mg a day -Chronic gout Allopurinol 100 mg a day -Morbid obesity BMI 40.2 Consultation to cardiothoracic surgery. Cardiology. Continue current medications. Follow renal function. Follow Accu-Cheks. Care was discussed with the patient. Increase Lipitor to 80 mg. DC glipizide. Start Levemir 20 units subcu daily at bedtime with sliding scale. Given the complexity and severity of patient's condition expect the patient to be in the hospital at least for 2 overnights Past Medical History Past Medical History: Asthma, Coronary Artery Disease (CAD), Chest Pain / Angina, Heart Failure, Diabetes Mellitus, GERD/Reflux, Hyperlipidemia, Hyper tension, Myocardial Infarction ([place]), Renal Disease, Sleep Apnea/CPAP/BIPAP Last Myocardial Infarction Date:: 2008 History of Any Multi-Drug Resistant Organisms: None Reported Past Surgical History: Adenoidectomy, Heart Catheterization With Stent, Tonsillectomy Additional Past Surgical History / Comment(s): cardiac stents x 5 Past Anesthesia/Blood Transfusion Reactions: Postoperative Nausea & Vomiting (PONV) Past Psychological History: ADD/ADHD, Anxiety, Bipolar, Depression, PTSD Smoking Status: Current every day smoker Past Alcohol Use History: None Reported Past Drug Use History: None Reported - Past Family History Father Family Medical History: Cancer, Coronary Artery Disease (CAD), Myocardial Infarction ([place]) Additional Family Medical History / Comment(s): at age 68 from meso thelioma, diagnosis of heart disease age of 60 Mother Family Medical History: Cancer, Coronary Artery Disease (CAD), Diabetes Mellitus, Liver Disease, Myocardial Infarction ([place]) Additional Family Medical History / Comment(s): from liver cancer, diagnosed with heart disease before the age of 60 Medications and Allergies Home Medications Medication Instructions Recorded Confirmed Type Allopurinol [Zyloprim] 100 mg PO DAILY 10/03/21 10/03/21 History Aspirin 325 mg PO DAILY 10/03/21 10/03/21 History Atorvastatin [Lipitor] 20 mg PO HS 10/03/21 10/03/21 History Isosorbide Mononitrate ER [Imdur] 60 mg PO DAILY 10/03/21 10/03/21 History Metoprolol Tartrate [Lopressor] 100 mg PO BID 10/03/21 10/03/21 History Omeprazole 20 mg PO AC-BRKFST 10/03/21 10/03/21 History Spironolactone 25 mg PO DAILY 10/03/21 10/03/21 History amLODIPine [Norvasc] 5 mg PO DAILY 10/03/21 10/03/21 History glipiZIDE [Glucotrol] 5 mg PO DAILY 10/03/21 10/03/21 History lisinopriL 40 mg PO DAILY 10/03/21 10/03/21 History Allergies Allergy/AdvReac Type Severity Reaction Status Date / Time Penicillins Allergy Swelling Verified 10/03/21 21:11 Sulfa (Sulfonamide Allergy Swelling Verified 10/03/21 21:11 Antibiotics) Physical Exam Vitals: Vital Signs Temp Pulse Pulse Resp BP BP Pulse Ox 10/04/21 08:30 98.1 F 56 L 16 138/80 97 10/04/21 04:00 98.1 F 59 L 18 135/82 95 10/04/21 01:24 56 L 18 10/04/21 00:00 98.2 F 56 L 18 119/65 10/03/21 20:00 98.1 F 59 L 59 L 18 127/77 98 10/03/21 18:51 57 L 16 168/78 96 10/03/21 18:41 98.7 F 10/03/21 18:36 63 16 161/79 98 10/03/21 16:05 60 18 142/88 145/85 96 Intake and Output 10/03/21 10/04/21 10/04/21 22:59 06:59 14:59 Intake Total 650 240 Balance 650 240 Intake: IV 650 Oral 240 Other: # Voids 1 Weight 127 kg Results CBC & Chem 7: 10/04/21 08:03 10/04/21 08:03 Labs: Abnormal Lab Results - Last 24 Hours (Table) 10/03/21 10/03/21 10/04/21 Range/Units 16:39 22:02 07:04 RBC (4.30-5.90) m/uL Hgb (13.0-17.5) gm/dL Hct (39.0-53.0) % Sodium 136 L (137-145) mmol/L Chloride (98-107) mmol/L BUN 31 H (9-20) mg/dL Creatinine 1.61 H (0.66-1.25) mg/dL Glucose 162 H (74-99) mg/dL POC Glucose (mg/dL) 129 H 118 H (75-99) mg/dL 10/04/21 10/04/21 Range/Units 08:03 08:03 RBC 3.93 L (4.30-5.90) m/uL Hgb 11.9 L (13.0-17.5) gm/dL Hct 35.8 L (39.0-53.0) % Sodium (137-145) mmol/L Chloride 108 H (98-107) mmol/L BUN 28 H (9-20) mg/dL Creatinine 1.55 H (0.66-1.25) mg/dL Glucose 137 H (74-99) mg/dL POC Glucose (mg/dL) (75-99) mg/dL Thrombosis Risk Factor Assmnt - Choose All That Apply Each Factor Represents 1 point: Acute DC, Age 41-60 years, Obesity (BMI >25) Thrombosis Risk Factor Assessment Total Risk Factor Score: 3 Thrombosis Risk Factor Assessment Level: Moderate Risk
[2021-10-04] MEDS: SODIUM CHLORIDE 0.9% 1,000 ML in EMPTY BAG 1 BAG IV SCH (19:35)
[2021-10-04 20:51] LABS: Glucose,Whole Blood 114 mg/dL (75-99)
[2021-10-04] MEDS: MUPIROCIN 2% OINT 22 GM TUBE NASAL SCH (20:51)
[2021-10-05] MEDS: PANTOPRAZOLE 40 MG TABLET PO SCH (06:17)
[2021-10-05 06:18] LABS: Glucose,Whole Blood 120 mg/dL (75-99)
[2021-10-05] MEDS: INSULIN ASPART (NovoLOG) 100 UNIT/ML VIAL SQ SCH ×4 (06:18→20:11)
[2021-10-05 07:33] LABS: Chol/HDL Ratio 5.15 Ratio; LDL Cholesterol,Calculated 59.2 mg/dL (0.0-131.0)
--- NOTE | 2021-10-05 08:07 | P.PN ---
Subjective Progress Note Date: 10/05/21 Principal diagnosis: Triple-vessel coronary artery disease. Previous medical history of coronary artery disease with previous myocardial infarction and previous stenting 5, hypertension, hyperlipidemia, [id number] diabetes, chronic kidney disease stage III, obstructive sleep apnea currently not using CPAP, anemia, gout, GERD, current light tobacco dependence, family history of premature coronary artery disease with both parents diagnosed before the age of 60, vac cinated and boosted against Covid The patient was seen and examined this morning sitting up in bed on the cardiac stepdown unit in no acute distress eating breakfast. Denies any chest pain or shortness of breath. States he has been able to be ambulatory in his room without difficulty. Remains on room air and achieving 2000 mL on his incentive spirometry. He was seen by Dr. Renee yesterday who discussed recommendations for cardiac surgery and patient is agreeable. Plan is for open heart surgery early this week. Objective - Vital Signs Vital signs: Vital Signs Temp 98 F 10/04/21 19:50 Pulse 65 10/05/21 03:50 Resp 18 10/05/21 03:50 BP 117/72 10/05/21 03:50 Pulse Ox 95 10/05/21 03:50 Intake & Output 10/04/21 10/05/21 10/05/21 18:59 06:59 18:59 Intake Total 240 Balance 240 Intake: Oral 240 Other: # Voids 2 2 - Exam CONSTITUTIONAL: Appears comfortable, cooperative, no acute distress RESPIRATORY: Lungs sounds diminished bilaterally. Respirations even, nonlabored. Currently on room air with oxygen saturation 95%. Able to achieve 2000 mL on incentive spirometry. Strong cough. CARDIOVASCULAR: S1, S2 present. Regular rate and rhythm, sinus rhythm on telemetry. Palpable peripheral pulses bilaterally. Bilateral lower extremity edema present. No calf pain or tenderness noted. GASTROINTESTINAL: Abdomen soft, nontender, nondistended. Active bowel sounds present 4 quadrants. Tolerating diet. GENITOURINARY: Continues to void INTEGUMENTARY: Skin is warm and dry with evidence of good perfusion. NEUROLOGIC: Cranial nerves II through XII intact MUSKULOSKELETAL: Able to move all extremities, strength equal bilaterally, gait normal PSYCHIATRIC: Alert and oriented to person place and time, appropriate affect, intact judgment and insight - Allied health notes Allied health notes reviewed: nursing - Labs CBC & Chem 7: 10/05/21 07:31 10/05/21 07:31 Labs: Abnormal Lab Results - Last 24 Hours (Table) 10/04/21 10/04/21 10/04/21 Range/Units 08:03 08:03 08:03 RBC 3.93 L (4.30-5.90) m/uL Hgb 11.9 L (13.0-17.5) gm/dL Hct 35.8 L (39.0-53.0) % Chloride 108 H (98-107) mmol/L BUN 28 H (9-20) mg/dL Creatinine 1.55 H (0.66-1.25) mg/dL Glucose 137 H (74-99) mg/dL POC Glucose (mg/dL) (75-99) mg/dL Hemoglobin A1c 6.3 H (4.0-6.0) % Triglycerides 260.00 H (0.00-149.00) mg/dL VLDL Cholesterol, Calc 52.00 H (5.00-40.00) mg/dL HDL Cholesterol 26.80 L (40.00-60.00) mg/dL 10/04/21 10/04/21 10/04/21 Range/Units 12:09 17:19 20:50 RBC (4.30-5.90) m/uL Hgb (13.0-17.5) gm/dL Hct (39.0-53.0) % Chloride (98-107) mmol/L BUN (9-20) mg/dL Creatinine (0.66-1.25) mg/dL Glucose (74-99) mg/dL POC Glucose (mg/dL) 70 L 103 H 114 H (75-99) mg/dL Hemoglobin A1c (4.0-6.0) % Triglycerides (0.00-149.00) mg/dL VLDL Cholesterol, Calc (5.00-40.00) mg/dL HDL Cholesterol (40.00-60.00) mg/dL 10/05/21 Range/Units 06:17 RBC (4.30-5.90) m/uL Hgb (13.0-17.5) gm/dL Hct (39.0-53.0) % Chloride (98-107) mmol/L BUN (9-20) mg/dL Creatinine (0.66-1.25) mg/dL Glucose (74-99) mg/dL POC Glucose (mg/dL) 120 H (75-99) mg/dL Hemoglobin A1c (4.0-6.0) % Triglycerides (0.00-149.00) mg/dL VLDL Cholesterol, Calc (5.00-40.00) mg/dL HDL Cholesterol (40.00-60.00) mg/dL Microbiology - Last 24 Hours (Table) 10/04/21 12:46 Nasal Screen MRSA/MSSA - Preliminary Nasal Swab - Imaging and Cardiology Chest x-ray: report reviewed, image reviewed Assessment and Plan Assessment: 1. Coronary artery disease with previous myocardial infarction and previous stenting 5, most recently 2008, 2. Chest pain, shortness of breath secondary to above 3. Hypertension 4. Hyperlipidemia, treated, cholesterol 138, LDL 59.2, triglycerides 260 5. Jcm-zzynurh-sjvjtzlgx diabetes, hemoglobin A1c 6.3% 6. Chronic kidney disease stage III 7. Obstructive sleep apnea currently not using CPAP 8. Anemia 9. Gout 10. GERD 11. Current light tobacco dependence, mild COPD with FEV1 62% of predicted 12. Family history of premature coronary artery disease with both parents diagnosed before the age of 60 13. Vaccinated and boosted against Covid Plan: 1. Continue aspirin, statin, beta brandy therapy 2. Encourage incentive spirometry use. Encourage smoking cessation 3. Continue preoperative teaching 4. Pulmonology consulted for clearance, await FEV1 5. Plan is for surgical myocardial revascularization with left internal mammary artery, endoscopic left radial artery harvest as well as endoscopic vein harvest and exclusion of the left atrial appendage to be completed early this week 6. We will need to contact the patient's first officer and flight instructor to have leg tether removed for surgery. We will call Wednesday 7. Increase activity as tolerated 8. Medical management of other comorbidities per primary care service 9. More recommendations to follow Time with Patient: Greater than 30
[2021-10-05 08:24] LABS: HCT 35.4 % (39.0-53.0); HGB 11.5 gm/dL (13.0-17.5); Hypochromasia Slight; MCH 29.9 pg (25.0-35.0); MCHC 32.4 g/dL (31.0-37.0); MCV 92.3 fL (80.0-100.0); Mean Platelet Volume 7.7; Platelet Count 195 k/uL (150-450); RBC 3.83 m/uL (4.30-5.90); RDW 14.8 % (11.5-15.5); WBC 5.4 k/uL (3.8-10.6)
[2021-10-05 08:38] LABS: Calcium 8.8 mg/dL (8.4-10.2); Potassium 4.6 mmol/L (3.5-5.1)
[2021-10-05] MEDS: SPIRONOLACTONE 25 MG TAB PO SCH (08:53)
[2021-10-05] MEDS: amLODIPine 5 MG TAB PO SCH (08:53)
[2021-10-05] MEDS: allopurinoL 100 MG TAB PO SCH (08:53)
[2021-10-05] MEDS: ASPIRIN 325 MG TAB PO SCH (08:53)
[2021-10-05] MEDS: MUPIROCIN 2% OINT 22 GM TUBE NASAL SCH ×2 (08:53→20:10)
[2021-10-05] MEDS: ISOSORBIDE MONONITRATE ER 60 MG TAB.ER.24H PO SCH (08:53)
[2021-10-05] MEDS: lisinopriL 20 MG TAB PO SCH (08:53)
[2021-10-05] MEDS: METOPROLOL TARTRATE 25 MG TAB PO SCH ×2 (08:53→20:11)
[2021-10-05] MEDS ORDERED: ATORVASTATIN 40 MG TAB PO SCH (09:00)
--- NOTE | 2021-10-05 10:20 | P.PN ---
Subjective Progress Note Date: 10/05/21 HISTORY OF PRESENTING ILLNESS Patient is a pleasant 51-year-old male with history of coronary artery disease with prior myocardial infarction and stenting most recently in 2008, hypertension, hyperlipidemia, diabetes mellitus, COPD, obstructive sleep apnea, anemia, tobacco abuse who has been having intermittent chest pain and therefore underwent stress testing which was abnormal. He was transferred from [facility] and had heart catheterization which showed multivessel disease and therefore CABG workup was recommended. Carotid ultrasound performed today showed some mild disease bilaterally. Echo performed yesterday shows EF 55-60%. 10/05 Patient denies having any chest pain or pressure. He states he has been ambulating without symptoms, no lightheadedness or dizziness. Cardiothoracic team is following for CABG, waiting for schedule. PHYSICAL EXAMINATION Vital signs reviewed. CONSTITUTIONAL: No apparent distress. HEENT: Head is normocephalic. Pupils are equal, round. Sclerae anicteric. Mucous membranes of the mouth are moist. No JVD. No carotid bruit. CHEST EXAMINATION: Lungs are clear to auscultation. No chest wall tenderness is noted on palpation or with deep breathing. HEART EXAMINATION: Regular rate and rhythm. S1, S2 heard. No murmurs, gallops or rub. ABDOMEN: Soft, nontender. Positive bowel sounds. EXTREMITIES: 2+ peripheral pulses, no lower extremity edema and no calf tenderness. NEUROLOGIC EXAMINATION: Patient is awake, alert and oriented x3. ASSESSMENT 1. Multivessel CAD 2. Chest pain concerning for unstable angina 3. Hypertension 4. Hyperlipidemia 5. Diabetes mellitus type 2 6. Tobacco abuse 7. COPD 8. Mild CKD PLAN Continue with surgical workup for CABG. Echo shows preserved EF without significant valvular disease. Continue with aspirin and increase Lipitor to a high intensity statin with 40 mg daily. Continue beta brandy with metoprolol 25 mg twice a day. Monitor for any recurrence of chest pain. Further recommendations to follow. Nurse practitioner note has been reviewed by physician. Signing provider agrees with the documented findings, assessment, and plan of care. Objective - Vital Signs Vital signs: Vital Signs Temp 97.9 F 10/05/21 08:50 Pulse 63 10/05/21 08:50 Resp 18 10/05/21 08:50 BP 134/77 10/05/21 08:50 Pulse Ox 96 10/05/21 08:50 Intake & Output 10/04/21 10/05/21 10/05/21 18:59 06:59 18:59 Intake Total 240 Balance 240 Intake: Oral 240 Other: # Voids 2 2 - Labs CBC & Chem 7: 10/05/21 07:31 10/05/21 07:31 Labs: Abnormal Lab Results - Last 24 Hours (Table) 10/04/21 10/04/21 10/04/21 Range/Units 08:03 08:03 12:09 RBC (4.30-5.90) m/uL Hgb (13.0-17.5) gm/dL Hct (39.0-53.0) % BUN (9-20) mg/dL Creatinine (0.66-1.25) mg/dL Glucose (74-99) mg/dL POC Glucose (mg/dL) 70 L (75-99) mg/dL Hemoglobin A1c 6.3 H (4.0-6.0) % Triglycerides 260.00 H (0.00-149.00) mg/dL VLDL Cholesterol, Calc 52.00 H (5.00-40.00) mg/dL HDL Cholesterol 26.80 L (40.00-60.00) mg/dL 10/04/21 10/04/21 10/05/21 Range/Units 17:19 20:50 06:17 RBC (4.30-5.90) m/uL Hgb (13.0-17.5) gm/dL Hct (39.0-53.0) % BUN (9-20) mg/dL Creatinine (0.66-1.25) mg/dL Glucose (74-99) mg/dL POC Glucose (mg/dL) 103 H 114 H 120 H (75-99) mg/dL Hemoglobin A1c (4.0-6.0) % Triglycerides (0.00-149.00) mg/dL VLDL Cholesterol, Calc (5.00-40.00) mg/dL HDL Cholesterol (40.00-60.00) mg/dL 10/05/21 10/05/21 Range/Units 07:31 07:31 RBC 3.83 L (4.30-5.90) m/uL Hgb 11.5 L (13.0-17.5) gm/dL Hct 35.4 L (39.0-53.0) % BUN 27 H (9-20) mg/dL Creatinine 1.67 H (0.66-1.25) mg/dL Glucose 153 H (74-99) mg/dL POC Glucose (mg/dL) (75-99) mg/dL Hemoglobin A1c (4.0-6.0) % Triglycerides (0.00-149.00) mg/dL VLDL Cholesterol, Calc (5.00-40.00) mg/dL HDL Cholesterol (40.00-60.00) mg/dL Microbiology - Last 24 Hours (Table) 10/04/21 12:46 Nasal Screen MRSA/MSSA - Preliminary Nasal Swab
[2021-10-05 11:51] LABS: Glucose,Whole Blood 139 mg/dL (75-99)
--- NOTE | 2021-10-05 12:31 | P.PN ---
Subjective Progress Note Date: 10/05/21 Principal diagnosis: Coronary artery disease. Pulmonary/critical care consult dated 10/04/2021. 51-year-old male with history of CAD, prior myocardial infarction, and stenting, 2008, as well as hypertension, hyperlipidemia, diabetes, COPD, sleep apnea, anemia, and chronic tobacco use, who had a catheterization at [facility]. It showed multivessel coronary artery disease, and the patient is apparently being evaluated for possible eye past grafting. The patient's currently not receiving any supplemental oxygen. The patient is on saline IV at [facility]. He has smoked for many years. The patient apparently has recently been out of halfway, and is currently wearing a tender. He apparently has been incarcerated for 15 years. She denies any shortness of breath, cough, wheezing, or phlegm production. He denies ever being diagnosed as having COPD. Currently labs include a white count 6.3, hemoglobin 11.9, hematocrit 35.8, and a platelet count of 189,000. Sodium 139, potassium 4.6, chlorides 108, CO2 25, anion gap 6, BUN 28, creatinine 1.55. Testing for coronavirus was negative. TSH is normal. Chest x-ray shows no acute pulmonary process. Progress note dated 10/05/2021. 51-year-old male with history of CAD, myocardial infarction, hypertension, hyp erlipidemia, diabetes, COPD, sleep apnea, anemia, and chronic tobacco use, who had a recent catheterization at [facility]. It showed multivessel coronary artery disease. The patient is currently being evaluated for bypass grafting, sometime this next week. The patient did smoke for many years. Actually though, lung function are quite good. FEV1 is 2.41 L, FVC is 2.77 L, and MVV is 90.4 L/m. Based on these data, the patient said no increased operative risk from the lung standpoint. The patient's resting comfortably. He's on room air. He's not receiving any IV fluids. White count 5.4, hemoglobin 11.5, hematocrit 35.4, and platelet count 195,000. Sodium 137, potassium 4.6, chlorides 106, CO2 25, anion gap 6, BUN 27, and creatinine 1.67. Calcium 8.8. The patient is not having any symptoms at this time including chest pain. Objective - Vital Signs Vital signs: Vital Signs Temp 97.9 F 10/05/21 08:50 Pulse 63 10/05/21 08:50 Resp 18 10/05/21 08:50 BP 134/77 10/05/21 08:50 Pulse Ox 96 10/05/21 08:50 Intake & Output 10/04/21 10/05/21 10/05/21 18:59 06:59 18:59 Intake Total 240 120 Balance 240 120 Intake: Oral 240 120 Other: # Voids 2 2 - Exam No acute distress, oriented 3. Not on any supplemental oxygen. Saturations are 96%. HEENT examination is grossly unremarkable. Neck supple. Full range of motion. No adenopathy thyromegaly or neck vein distention. Cardiovascular examination reveals regular rhythm rate. S1-S2 normal. No S3 or S4. No discernible murmur noted. Heart rate 63 bpm. Lungs reveal clear breath sounds. Breath sounds are equal bilaterally. No adventitious lung sounds including wheezes rhonchi or crackles. Abdomen soft bowel sounds are heard. No masses or tenderness. Extremities are intact. No cyanosis clubbing or edema. He is wearing a tether on his ankle. Skin is without rash or lesion. Neurologic examination is brief but nonfocal. - Labs CBC & Chem 7: 10/05/21 07:31 10/05/21 07:31 Labs: Abnormal Lab Results - Last 24 Hours (Table) 10/04/21 10/04/21 10/04/21 Range/Units 08:03 08:03 17:19 RBC (4.30-5.90) m/uL Hgb (13.0-17.5) gm/dL Hct (39.0-53.0) % BUN (9-20) mg/dL Creatinine (0.66-1.25) mg/dL Glucose (74-99) mg/dL POC Glucose (mg/dL) 103 H (75-99) mg/dL Hemoglobin A1c 6.3 H (4.0-6.0) % Triglycerides 260.00 H (0.00-149.00) mg/dL VLDL Cholesterol, Calc 52.00 H (5.00-40.00) mg/dL HDL Cholesterol 26.80 L (40.00-60.00) mg/dL 10/04/21 10/05/21 10/05/21 Range/Units 20:50 06:17 07:31 RBC 3.83 L (4.30-5.90) m/uL Hgb 11.5 L (13.0-17.5) gm/dL Hct 35.4 L (39.0-53.0) % BUN (9-20) mg/dL Creatinine (0.66-1.25) mg/dL Glucose (74-99) mg/dL POC Glucose (mg/dL) 114 H 120 H (75-99) mg/dL Hemoglobin A1c (4.0-6.0) % Triglycerides (0.00-149.00) mg/dL VLDL Cholesterol, Calc (5.00-40.00) mg/dL HDL Cholesterol (40.00-60.00) mg/dL 10/05/21 10/05/21 Range/Units 07:31 11:50 RBC (4.30-5.90) m/uL Hgb (13.0-17.5) gm/dL Hct (39.0-53.0) % BUN 27 H (9-20) mg/dL Creatinine 1.67 H (0.66-1.25) mg/dL Glucose 153 H (74-99) mg/dL POC Glucose (mg/dL) 139 H (75-99) mg/dL Hemoglobin A1c (4.0-6.0) % Triglycerides (0.00-149.00) mg/dL VLDL Cholesterol, Calc (5.00-40.00) mg/dL HDL Cholesterol (40.00-60.00) mg/dL Microbiology - Last 24 Hours (Table) 10/04/21 12:46 Nasal Screen MRSA/MSSA - Preliminary Nasal Swab Assessment and Plan Assessment: Multivessel coronary artery disease, with anticipated bypass grafting, next week. History of CAD, with previous stent placement. History of myocardial infarction, 2009. Essential hypertension. Hyperlipidemia. Diabetes mellitus. Suspected COPD from chronic tobacco use. Sleep apnea syndrome. History of anemia. Plan: Plan dated 10/04/2021. The patient is counseled about the importance of smoking cessation. The patient will have a bedside spirometry. Additional recommendations and suggestions are forthcoming. I did explain to the patient, our role in bypass grafting and open-heart patient's. He did seem to understand. We'll continue to follow. He denies a prior history of chronic lung disease. He is a heavy smoker and is been smoking for many years. He states he is down to 3 or 4 cigarettes a day. Plan dated 10/05/2021. The patient's lung function is quite excellent. The patient did smoke heavily for many years. FEV1, and MVV, with predicted the patient is at no increased operative risk for the surgery next week. The patient not requiring any supplemental oxygen. He's not on any IV fluids. Labs, x-rays, and medications are all reviewed. Prognosis is guarded. Time with Patient: Less than 30
[2021-10-05] MEDS: IPRATROPIUM-ALBUTEROL 3 ML NEB INHALATION SCH ×2 (15:21→20:20)
--- NOTE | 2021-10-05 16:08 | P.PN ---
Progress Note - Text Progress Note Date: 10/05/21 Presenting complaint: Chest pain History of presenting complaint: This is a 51-year-old patient was chronic stable medical conditions include diabetes mellitus type 2, hypertension, CK D stage III, GERD, gout with known coronary artery disease and prior 5 stents. Patient had been present for 15 years really has not prolonged cold. 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 Patient presented to [facility] with chest hour left- sided precordial pain. Admitted with unstable angina. Put on IV heparin. Troponins were negative. Patient was transferred to [facility] in [place] for further intervention. Patient had a nuclear stress test that showed reversibility. Patient yesterday underwent cardiac catheterization was found to have triple-vessel disease. Cardiothoracic surgery's been consulted. Currently no chest pain. 2-D echo showed EF of 55-60% October 05: Sitting up in bed. No chest pain. Oral intake good. Consult nephrology. Review of systems: Was done for constitutional, cardiovascular, GI, pulmonary. relevant finding as above Active Medications Acetaminophen (Acetaminophen Tab 325 Mg Tab) 650 mg PO Q6HR PRN PRN Reason: Mild Pain or Fever > 100.5 Albuterol/Ipratropium (Ipratropium-Albuterol 3 Ml Neb) 3 ml INHALATION RT-TID [facility] Last Admin: 10/05/21 15:21 Dose: 3 ml Documented by: Allopurinol (Allopurinol 100 Mg Tab) 100 mg PO DAILY [facility] Last Admin: 10/05/21 08:53 Dose: 100 mg Documented by: Alprazolam (Alprazolam 0.25 Mg Tab) 0.25 mg PO Q6HR PRN PRN Reason: Mild Anxiety Alprazolam (Alprazolam 0.5 Mg Tab) 0.5 mg PO Q6HR PRN PRN Reason: Moderate Anxiety Amlodipine Besylate (Amlodipine 5 Mg Tab) 5 mg PO DAILY [facility] Last Admin: 10/05/21 08:53 Dose: 5 mg Documented by: Aspirin (Aspirin 325 Mg Tab) 325 mg PO DAILY [facility] Last Admin: 10/05/21 08:53 Dose: 325 mg Documented by: Atorvastatin Calcium (Atorvastatin 80 Mg Tab) 80 mg PO HS [facility] Calcium Carbonate/Glycine (Calcium Carbonate 500 Mg Chewable) 1,000 mg PO Q4HR PRN PRN Reason: Dyspepsia Sodium Chloride 1,000 ml/ IV (Solution) 1,000 mls @ 127 mls/hr IV .[id number] [facility] Last Admin: 10/04/21 19:35 Dose: Not Given Documented by: Insulin Aspart (Insulin Aspart (Novolog) 100 Unit/Ml Vial) 0 unit SQ [facility]; Protocol Last Admin: 10/05/21 13:02 Dose: 1 unit Documented by: Insulin Detemir (Insulin Detemir (Levemir) 100 Unit/Ml Syr) 14 unit SQ [facility] Isosorbide Mononitrate (Isosorbide Mononitrate Er 60 Mg Tab.Er.24h) 60 mg PO DAILY [facility] Last Admin: 10/05/21 08:53 Dose: 60 mg Documented by: Lactulose (Lactulose 20 Gm/30 Ml Cup) 20 gm PO DAILY PRN PRN Reason: Constipation Lisinopril (Lisinopril 20 Mg Tab) 40 mg PO DAILY [facility] Last Admin: 10/05/21 08:53 Dose: 40 mg Documented by: Lorazepam (Lorazepam 0.5 Mg Tab) 0.5 mg PO Q6HR PRN PRN Reason: Anxiety Melatonin (Melatonin 3 Mg Tablet) 3 mg PO HS PRN PRN Reason: Insomnia Metoprolol Tartrate (Metoprolol Tartrate 25 Mg Tab) 25 mg PO BID [facility] Last Admin: 10/05/21 08:53 Dose: 25 mg Documented by: Miscellaneous Information (Rx Info: Iv Contrast Was Given 1 Each Misc) 1 each MISCELLANE DAILY PRN PRN Reason: Per Protocol Stop: 10/05/21 18:21 Miscellaneous Information (Rx Info: Iv Contrast Was Given 1 Each Misc) 1 each MISCELLANE DAILY PRN PRN Reason: Per Protocol Stop: 10/06/21 18:18 Mupirocin (Mupirocin 2% Oint 22 Gm Tube) 1 applic NASAL BID [facility]; Protocol Last Admin: 10/05/21 08:53 Dose: 1 applic Documented by: Naloxone HCl (Naloxone 0.4 Mg/Ml 1 Ml Vial) 0.2 mg IV Q2M PRN PRN Reason: Opioid Reversal Nitroglycerin (Nitroglycerin Sl Tabs 0.4 Mg Tab) 0.4 mg SUBLINGUAL Q5M PRN PRN Reason: Chest Pain Ondansetron HCl (Ondansetron 4 Mg/2 Ml Vial) 4 mg IVP Q8HR PRN PRN Reason: Nausea And Vomiting Pantoprazole Sodium (Pantoprazole 40 Mg Tablet) 40 mg PO AC-BRKFST [facility] Last Admin: 10/05/21 06:17 Dose: 40 mg Documented by: Spironolactone (Spironolactone 25 Mg Tab) 25 mg PO DAILY [facility] Last Admin: 10/05/21 08:53 Dose: 25 mg Documented by: Past medical history to include: Diabetes mellitus type 2, CAD with 5 stents, hypertension, CK D stage III, GERD, gout, obstructive sleep apnea, bipolar Social history: Patient average 3-4 packs a day for close to 40 years. Now a few cigarettes a day. Currently living at half a house. 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 Family history: Mesothelioma, heart disease Physical examination: VITAL SIGNS: 98.1, 61, 16, 133 with 71, 95% room air GENERAL: , reclining, awake, comfortable. wearing Tether EYES: Pupils equal. Conjunctiva normal. HEENT: External appearance of nose and ears normal, oral cavity grossly normal. NECK: JVD not raised; masses not palpable. HEART: First and second heart sounds are normal; no edema. LUNGS: Respiratory rate normal; decreased breath sounds. ABDOMEN: Soft, nontender, liver spleen not palpable, no masses palpable. PSYCH: Alert and oriented x3; mood and affect normal. INVESTIGATIONS, reviewed in the clinical context: October 05: Hemoglobin 11.5 creatinine 1.67 White count is 6.3 hemoglobin 11.9 platelets 189 sodium 139 potassium 4.6 BUN 28 creatinine 1.55 Accu-Cheks noted HbA1c 6.3 TSH 1.6 Acute hepatitis panel for A, B, and C: Not reactive Coronavirus [PCR]: Not detected 2-D echocardiogram: Moderate concentric LVH. EF 55-60% Chest x-ray film personally reviewed by me-cardiomegaly. Telemetry tracings personally reviewed by me: Sinus rhythm, T-wave changes Assessment and plan: -Unstable angina in a patient with known coronary artery disease -Triple-vessel coronary artery disease following cardiac catheterization Being evaluated by cardiothoracic surgery for coronary bypass -Coronary artery disease with prior 5 stents Aspirin 325 mg a day, Lipitor 40 mg daily, Zestril 40 mg daily, Lopressor 25 mg twice a day -COPD in a previous smoker DuoNeb 3 times a day -Chronic kidney disease stage III likely from diabetic nephropathy and nephrosclerosis Follow renal function closely. Given cardiac catheterization IV fluids. nephrology consult -Normocytic anemia of chronic disease from CK D Check iron studies -Diabetes mellitus type 2 on oral hypoglycemic Hold glipizide. Start Levemir.. Follow Accu-Cheks -Essential hypertension Amlodipine 5 mg a day Lopressor 25 mg twice a day Zestril 40 mg a day -Chronic gout Allopurinol 100 mg a day -Morbid obesity BMI 40.2 DC Aldactone. Cutback saline to 50 mL an hour. Check iron studies. Follow BMP.
[2021-10-05 16:27] LABS: Appearance,Urine Clear (Clear); Bilirubin,Urine Negative (Negative); Blood,Urine Negative (Negative); Color,Urine Yellow; Glucose,Urine (UA) Negative (Negative); Ketones,Urine Negative (Negative); Leukocyte Esterase,Urine Negative (Negative); Nitrite,Urine Negative (Negative); PH, Urine 5.5 (5.0-8.0); Protein,Urine Trace (Negative); Specific Gravity,Urine 1.031 (1.001-1.035); Urobilinogen,Urine <2.0 mg/dL (<2.0)
[2021-10-05 16:41] LABS: Glucose,Whole Blood 139 mg/dL (75-99)
[2021-10-05] MEDS: SODIUM CHLORIDE 0.9% 1,000 ML IV SCH (17:16)
[2021-10-05 20:01] LABS: Glucose,Whole Blood 171 mg/dL (75-99)
[2021-10-05] MEDS: INSULIN DETEMIR (LEVEMIR) 100 UNIT/ML SYR SQ SCH (20:11)
[2021-10-05] MEDS: ATORVASTATIN 80 MG TAB PO SCH (20:11)
[2021-10-06] MEDS: INSULIN ASPART (NovoLOG) 100 UNIT/ML VIAL SQ SCH ×4 (06:30→21:26)
[2021-10-06] MEDS: PANTOPRAZOLE 40 MG TABLET PO SCH (06:31)
[2021-10-06 06:41] LABS: Glucose,Whole Blood 117 mg/dL (75-99)
[2021-10-06] MEDS: IPRATROPIUM-ALBUTEROL 3 ML NEB INHALATION SCH ×3 (07:13→19:43)
--- NOTE | 2021-10-06 07:30 | P.PN ---
Subjective Progress Note Date: 10/06/21 Principal diagnosis: Triple-vessel coronary artery disease. Previous medical history of coronary artery disease with previous myocardial infarction and previous stenting 5, hypertension, hyperlipidemia, [id number] diabetes, chronic kidney disease stage III, obstructive sleep apnea currently not using CPAP, anemia, gout, GERD, current light tobacco dependence, family history of premature coronary artery disease with both parents diagnosed before the age of 60, vac cinated and boosted against Covid The patient was seen and examined this morning sitting up in bed on the cardiac stepdown unit in no acute distress. Denies any chest pain or shortness of breath. States he has been able to be ambulatory in his room without difficulty. Remains on room air and achieving 3000 mL on his incentive spirometry. Discussed plan for surgery tomorrow. Objective - Vital Signs Vital signs: Vital Signs Temp 98.1 F 10/05/21 13:00 Pulse 71 10/06/21 03:45 Resp 18 10/06/21 03:45 BP 134/74 10/06/21 03:45 Pulse Ox 95 10/06/21 03:45 Intake & Output 10/05/21 10/06/21 10/06/21 18:59 06:59 18:59 Intake Total 600 Balance 600 Intake: Oral 600 Other: # Voids 2 1 - Exam CONSTITUTIONAL: Appears comfortable, cooperative, no acute distress RESPIRATORY: Lungs sounds diminished bilaterally. Respirations even, nonlabored. Currently on room air with oxygen saturation 95%. Able to achieve 3000 mL on incentive spirometry. Strong cough. CARDIOVASCULAR: S1, S2 present. Regular rate and rhythm, sinus rhythm on telemetry. Palpable peripheral pulses bilaterally. Bilateral lower extremity edema present. No calf pain or tenderness noted. GASTROINTESTINAL: Abdomen soft, nontender, nondistended. Active bowel sounds present 4 quadrants. Tolerating diet. GENITOURINARY: Continues to void INTEGUMENTARY: Skin is warm and dry with evidence of good perfusion. NEUROLOGIC: Cranial nerves II through XII intact MUSKULOSKELETAL: Able to move all extremities, strength equal bilaterally, gait normal PSYCHIATRIC: Alert and oriented to person place and time, appropriate affect, intact judgment and insight - Allied health notes Allied health notes reviewed: nursing - Labs CBC & Chem 7: 10/05/21 07:31 10/05/21 07:31 Labs: Abnormal Lab Results - Last 24 Hours (Table) 10/04/21 10/04/2122 Range/Units 08:03 Unknown 07:31 RBC 3.83 L (4.30-5.90) m/uL Hgb 11.5 L (13.0-17.5) gm/dL Hct 35.4 L (39.0-53.0) % BUN (9-20) mg/dL Creatinine (0.66-1.25) mg/dL Glucose (74-99) mg/dL POC Glucose (mg/dL) (75-99) mg/dL Triglycerides 260.00 H (0.00-149.00) mg/dL VLDL Cholesterol, Calc 52.00 H (5.00-40.00) mg/dL HDL Cholesterol 26.80 L (40.00-60.00) mg/dL Urine Protein Trace H (Negative) 10/05/21 10/05/21 10/05/21 Range/Units 07:31 11:50 16:40 RBC (4.30-5.90) m/uL Hgb (13.0-17.5) gm/dL Hct (39.0-53.0) % BUN 27 H (9-20) mg/dL Creatinine 1.67 H (0.66-1.25) mg/dL Glucose 153 H (74-99) mg/dL POC Glucose (mg/dL) 139 H 139 H (75-99) mg/dL Triglycerides (0.00-149.00) mg/dL VLDL Cholesterol, Calc (5.00-40.00) mg/dL HDL Cholesterol (40.00-60.00) mg/dL Urine Protein (Negative) 10/05/21 10/06/21 Range/Units 19:59 06:30 RBC (4.30-5.90) m/uL Hgb (13.0-17.5) gm/dL Hct (39.0-53.0) % BUN (9-20) mg/dL Creatinine (0.66-1.25) mg/dL Glucose (74-99) mg/dL POC Glucose (mg/dL) 171 H 117 H (75-99) mg/dL Triglycerides (0.00-149.00) mg/dL VLDL Cholesterol, Calc (5.00-40.00) mg/dL HDL Cholesterol (40.00-60.00) mg/dL Urine Protein (Negative) Microbiology - Last 24 Hours (Table) 10/04/21 12:46 Nasal Screen MRSA/MSSA - Final Nasal Swab Assessment and Plan Assessment: 1. Coronary artery disease with previous myocardial infarction and previous stenting 5, most recently 2008, 2. Chest pain, shortness of breath secondary to above 3. Hypertension 4. Hyperlipidemia, treated, cholesterol 138, LDL 59.2, triglycerides 260 5. Fig-[id number] diabetes, hemoglobin A1c 6.3% 6. Chronic kidney disease stage III 7. Obstructive sleep apnea currently not using CPAP 8. Anemia 9. Gout 10. GERD 11. Current light tobacco dependence, mild COPD with FEV1 62% of predicted 12. Family history of premature coronary artery disease with both parents diagnosed before the age of 60 13. Vaccinated and boosted against Covid Plan: 1. Continue aspirin, statin, beta brandy therapy 2. Encourage incentive spirometry use. Encourage smoking cessation 3. Continue preoperative teaching 4. Nephrology consulted by internal medicine, appreciate recommendations 5. Plan is for surgical myocardial revascularization with left internal mammary artery, endoscopic left radial artery harvest as well as endoscopic vein harvest and exclusion of the left atrial appendage to be completed tomorrow by Dr. Renee 6. Will contact the patient's security patrol officer to have leg tether removed for surgery 7. Increase activity as tolerated 8. Medical management of other comorbidities per primary care service 9. More recommendations to follow Time with Patient: Greater than 30
[2021-10-06] MEDS: SODIUM CHLORIDE 0.9% 1,000 ML in EMPTY BAG 1 BAG IV SCH (08:04)
[2021-10-06 08:42] LABS: Calcium 8.9 mg/dL (8.4-10.2); Potassium 4.3 mmol/L (3.5-5.1)
--- NOTE | 2021-10-06 10:25 | US ---
EXAMINATION TYPE: US kidneys/renal and bladder DATE OF EXAM: 10/06/2021 COMPARISON: NONE CLINICAL HISTORY: rf. Renal failure EXAM MEASUREMENTS: Right Kidney: 10.2 x 6.1 x 5.4 cm Left Kidney: 10.2 x 5.3 x 5.1 cm Difficult exam due to patient body habitus Right Kidney: No hydronephrosis or masses seen Left Kidney: Possible cyst seen mid-pole 1.4 x 1.2 x 1.5 cm. Bladder: Anechoic; wnl Bilateral Jets seen: Yes IMPRESSION: Exam technically limited. No obvious hydronephrosis or nephrolithiasis. There is an indeterminate 1.5 cm left renal lesion possibly related to cyst. Correlate with CT scan as clinically warranted.
[2021-10-06] MEDS: SODIUM CHLORIDE 0.9% 1,000 ML IV SCH (10:46)
[2021-10-06] MEDS: allopurinoL 100 MG TAB PO SCH (10:46)
[2021-10-06] MEDS: amLODIPine 5 MG TAB PO SCH (10:46)
[2021-10-06] MEDS: ASPIRIN 325 MG TAB PO SCH (10:46)
[2021-10-06] MEDS: METOPROLOL TARTRATE 25 MG TAB PO SCH ×2 (10:46→20:42)
[2021-10-06] MEDS: MUPIROCIN 2% OINT 22 GM TUBE NASAL SCH ×2 (10:46→21:26)
[2021-10-06] MEDS: ISOSORBIDE MONONITRATE ER 60 MG TAB.ER.24H PO SCH (10:46)
[2021-10-06 12:06] LABS: Glucose,Whole Blood 156 mg/dL (75-99)
--- NOTE | 2021-10-06 13:21 | P.PN ---
Subjective HISTORY OF PRESENTING ILLNESS Patient is a pleasant 51-year-old male with history of coronary artery disease with prior myocardial infarction and stenting most recently in 2008, hypertension, hyperlipidemia, diabetes mellitus, COPD, obstructive sleep apnea, anemia, tobacco abuse who has been having intermittent chest pain and therefore underwent stress testing which was abnormal. He was transferred from [facility] and had heart catheterization which showed multivessel disease and therefore CABG workup was recommended. Carotid ultrasound performed today showed some mild disease bilaterally. Echo performed yesterday shows EF 55-60%. 10/06/21 Patient seen and examined at bedside, no acute distress. \Denies having any chest pain or pressure. He states he has been ambulating without symptoms, no lightheadedness or dizziness. Cardiothoracic team is following for CABG, plan for surgery tomorrow. Labs reviewed, sodium 137, potassium 4.3, BUN 29, serum creatinine 1.7. He's currently maintained on aspirin 325 mg daily, amlodipine 5 mg daily, atorvastatin 80 mg nightly, Imdur 60 mg daily, metoprolol tartrate 25 mg twice a day PHYSICAL EXAMINATION Vital signs reviewed. CONSTITUTIONAL: No apparent distress. HEENT: Neck Supple. No JVD. CHEST EXAMINATION: Lungs are clear to auscultation. HEART EXAMINATION: Regular rate and rhythm. S1, S2 heard. No murmurs, gallops or rub. ABDOMEN: Soft, nontender. Positive bowel sounds. EXTREMITIES: no lower extremity edema and no calf tenderness. NEUROLOGIC EXAMINATION: Patient is awake, alert and oriented x3. ASSESSMENT 1. Multivessel CAD 2. Chest pain concerning for unstable angina 3. Hypertension 4. Hyperlipidemia 5. Diabetes mellitus type 2 6. Tobacco abuse 7. COPD 8. Mild CKD PLAN Continue with surgical workup for CABG. Echo shows preserved EF without significant valvular disease. Continue with aspirin and Lipitor. Continue beta brandy with metoprolol 25 mg twice a day. Monitor for any recurrence of chest pain. Further recommendations to follow. Plan for CABG tomorrow. Objective - Vital Signs Vital signs: Vital Signs Temp 98.1 F 10/06/21 10:49 Pulse 78 10/06/21 11:14 Resp 16 10/06/21 10:49 BP 139/81 10/06/21 10:49 Pulse Ox 96 10/06/21 10:49 Intake & Output 10/05/21 10/06/21 10/06/21 18:59 06:59 18:59 Intake Total 600 360 Balance 600 360 Intake: Oral 600 360 Other: # Voids 2 1 - Labs CBC & Chem 7: 10/05/21 07:31 10/06/21 07:55 Labs: Abnormal Lab Results - Last 24 Hours (Table) 10/04/21 10/05/21 10/05/21 Range/Units Unknown 16:40 19:59 BUN (9-20) mg/dL Creatinine (0.66-1.25) mg/dL Glucose (74-99) mg/dL POC Glucose (mg/dL) 139 H 171 H (75-99) mg/dL Urine Protein Trace H (Negative) Crossmatch 10/06/21 10/06/21 10/06/21 Range/Units 06:30 07:55 07:55 BUN 29 H (9-20) mg/dL Creatinine 1.75 H (0.66-1.25) mg/dL Glucose 209 H (74-99) mg/dL POC Glucose (mg/dL) 117 H (75-99) mg/dL Urine Protein (Negative) Crossmatch See Detail 10/06/21 Range/Units 11:52 BUN (9-20) mg/dL Creatinine (0.66-1.25) mg/dL Glucose (74-99) mg/dL POC Glucose (mg/dL) 156 H (75-99) mg/dL Urine Protein (Negative) Crossmatch Microbiology - Last 24 Hours (Table) 10/04/21 12:46 Nasal Screen MRSA/MSSA - Final Nasal Swab
--- NOTE | 2021-10-06 13:48 | CONS ---
CONSULTATION REASON FOR CONSULT: Acute kidney injury. HISTORY OF PRESENT ILLNESS: Patient is a 51-year-old male with history of hypertension and chronic kidney disease. He was informed that he has CKD stage 3B about 3-4 months ago while he was in retirement. Patient states that he has not seen a sales agent financial report service prior to that. The patient also has underlying history of coronary artery disease. He initially presented to [facility] for chest pain. He had unstable angina. He was taken for cardiac catheterization, was found to have triple-vessel disease and is scheduled for coronary artery bypass surgery tomorrow. The patient is not aware of his baseline creatinine. His serum creatinine has been about 1.6-1.5 mg/dL and it increased to 1.75 mg today. We do not have any prior labs available for comparison. The patient's blood pressure has not been significantly low. Systolic blood pressure mostly 130s to 140s. The patient is maintained on large dose of lisinopril at 40 mg daily. He states he has no trouble voiding. Ultrasound was ordered and it is being done while I am talking to the patient and he is noted to have large amount of urine in his bladder. Patient denies use of any nonsteroidal anti-inflammatory agents. Patient had a cardiac catheterization on 10/03/2021. PAST MEDICAL HISTORY: Significant for type 2 diabetes, hypertension, CKD, coronary artery disease, history of asthma, hyperlipidemia, gastroesophageal reflux disease, AK, obstructive sleep apnea. PAST SURGICAL HISTORY: Adenoidectomy, cardiac catheterization, coronary stent placement, tonsillectomy, anxiety, bipolar disorder, posttraumatic stress disorder. SOCIAL HISTORY: Positive for smoking. No history of drug abuse or alcohol abuse. MEDICATIONS: Prior to admission included Zyloprim, aspirin, Lipitor, Imdur, Lopressor, omeprazole, spironolactone, Norvasc, Glucotrol, lisinopril. ALLERGIES: INCLUDE PENICILLIN CAUSES SWELLING WELL SULFA, WHICH CAUSES SWELLING. REVIEW OF SYSTEMS: As per HPI. Other systems negative. EXAMINATION: Comfortable, awake, not in any acute distress. Alert, oriented x3. Blood pressure is 139/81, heart rate 62 per minute. He is afebrile. Examination of the heart S1, S2. Examination of the lungs, bilateral breath sounds are heard. Abdomen is soft, nontender and obese. Examination of lower extremities shows edema 1+ bilaterally. HEMATOLOGIST ONCOLOGIST exam grossly intact. LAB: Show sodium 137, potassium 4.3, chloride 107, BUN 29, creatinine 1.75. ASSESSMENT: 1. Acute kidney injury associated with contrast nephropathy with creatinine at 1.7 which is increased from about 1.5-1.6 mg/dL. No evidence of use of nonsteroidal anti-inflammatory agents. No hypotension noted. Need to rule out underlying urine retention. No major hydronephrosis noted on ultrasound of the kidneys. However, bladder was noted to be full. We will check a post-void bladder scan as well. I will decrease the dose of lisinopril. However, if the patient is going for surgery tomorrow, we might as well hold off on it until he is hemodynamically stable postoperatively. 2. Coronary artery disease status post cardiac cath on October 03 scheduled for coronary artery bypass surgery due to severe disease. 3. Type 2 diabetes. 4. Chronic kidney disease stage 3B per patient. Previous creatinine not known possibly around 1.5-1.6 mg/dL. 5. History of gout. 6. Dyslipidemia. PLAN: May continue with IV fluids. Check ultrasound of the kidneys. Check postvoid bladder scan. Avoid any other nephrotoxic agents. We can hold off on the PAMELA inhibitors as patient is scheduled for surgery tomorrow and this can be resumed in about 1-2 days postoperatively. The patient will need outpatient followup for CKD. Thank you for this consultation. We will continue to follow the patient with you during his hospitalization. DMITRI / YOKON: [id number] /
[2021-10-06 15:45] LABS: % Iron Saturation 15.08 (15.00-50.00); Ferritin 99.2 ng/mL (22.0-322.0)
--- NOTE | 2021-10-06 15:46 | P.PN ---
Subjective Progress Note Date: 10/06/21 51-year-old male with history of CAD, prior myocardial infarction, and stenting, 2008, as well as hypertension, hyperlipidemia, diabetes, COPD, sleep apnea, anemia, and chronic tobacco use, who had a catheterization at [facility]. It showed multivessel coronary artery disease, and the patient is apparently being evaluated for possible eye past grafting. The patient's currently not receiving any supplemental oxygen. The patient is on saline IV at [facility]. He has smoked for many years. The patient apparently has recently been out of nursing home, and is currently wearing a tender. 10/06/2021, the patient is being seen for a follow-up. As we are following up this patient, the patient is being worked up for coronary artery bypass surgery as the patient is known to have multivessel coronary disease with triple-vessel involvement. The patient undergone a previous myocardial infarction and previous stenting 5. The patient also has history of hypertension, hyperlipidemia, dgk-kvuhiyy-bztffxhau diabetes mellitus, chronic stage III kidney disease and obstructive sleep apnea not utilizing CPAP therapy. The patient also has gout, chronic anemia and premature history of coronary artery disease. The patient has been vaccinated and boosted for COVID 19 infections. The patient is currently using incentive spirometer. He is pulling approximately 3000. His free of any chest pain for now. Spirometry was done and the patient was found to have an FEV1 of 2.41 L and the patient had an MCV of 90.4 L per minute. Otherwise, the patient is doing well. No significant complaints for now. His free of any chest pain. His cardiac catheterization with an [facility]. Objective - Vital Signs Vital signs: Vital Signs Temp 98.1 F 10/05/21 13:00 Pulse 71 10/06/21 03:45 Resp 18 10/06/21 03:45 BP 134/74 10/06/21 03:45 Pulse Ox 95 10/06/21 03:45 Intake & Output 10/05/21 10/06/21 10/06/21 18:59 06:59 18:59 Intake Total 600 360 Balance 600 360 Intake: Oral 600 360 Other: # Voids 2 1 - Exam No acute distress, oriented 3. Not on any supplemental oxygen. Saturations are 96%. HEENT examination is grossly unremarkable. Neck supple. Full range of motion. No adenopathy thyromegaly or neck vein distention. Cardiovascular examination reveals regular rhythm rate. S1-S2 normal. No S3 or S4. No discernible murmur noted. Lungs reveal clear breath sounds. Breath sounds are equal bilaterally. No adventitious lung sounds including wheezes rhonchi or crackles. Abdomen soft bowel sounds are heard. No masses or tenderness. Extremities are intact. No cyanosis clubbing or edema. He is wearing a tether on his ankle. Skin is without rash or lesion. Neurologic examination is brief but nonfocal. - Labs CBC & Chem 7: 10/05/21 07:31 10/06/21 07:55 Labs: Abnormal Lab Results - Last 24 Hours (Table) 10/04/21 10/05/21 10/05/21 Range/Units Unknown 11:50 16:40 BUN (9-20) mg/dL Creatinine (0.66-1.25) mg/dL Glucose (74-99) mg/dL POC Glucose (mg/dL) 139 H 139 H (75-99) mg/dL Urine Protein Trace H (Negative) Crossmatch 10/05/21 10/06/21 10/06/21 Range/Units 19:59 06:30 07:55 BUN 29 H (9-20) mg/dL Creatinine 1.75 H (0.66-1.25) mg/dL Glucose 209 H (74-99) mg/dL POC Glucose (mg/dL) 171 H 117 H (75-99) mg/dL Urine Protein (Negative) Crossmatch 10/06/21 Range/Units 07:55 BUN (9-20) mg/dL Creatinine (0.66-1.25) mg/dL Glucose (74-99) mg/dL POC Glucose (mg/dL) (75-99) mg/dL Urine Protein (Negative) Crossmatch See Detail Microbiology - Last 24 Hours (Table) 10/04/21 12:46 Nasal Screen MRSA/MSSA - Final Nasal Swab Assessment and Plan Plan: 1 Multivessel coronary artery disease, with anticipated bypass grafting, next week. The patient has had previous myocardial infarction and stenting 5 most recently in 2008. The patient is currently being evaluated for coronary artery bypass surgery. 2 History of CAD, with previous stent placement. 3 History of myocardial infarction, 2008. 4 Essential hypertension. 5 Hyperlipidemia. 6 Diabetes mellitus. The patient has a HbA1c of 6.3% 7 Suspected COPD from chronic tobacco use. The patient has a an FEV1 of 62% of predicted 8 Sleep apnea syndrome. not utilizing CPAP therapy. Body mass index is 21.8 9 History of anemia. 10 chronic stage III kidney disease 11 gout 12 active for COVID 19 including booster shot Plan Overall pulmonary status is stable. Anticipate low risk for only complications. Continue using incentive spirometer Chest x-ray showed no acute cardio pulmonary process Doppler of the carotids showed mild atherosclerotic disease bilaterally without significant stenosis seen in the internal carotid artery Ultrasound the kidneys was completed and the patient has chronic stable state secondary disease. No evidence of hydronephrosis. A indeterminate 1.5 cm lesion in the left renal cyst on probably related to assess.
[2021-10-06] MEDS: lisinopriL 20 MG TAB PO SCH (16:08)
[2021-10-06 17:12] LABS: Glucose,Whole Blood 165 mg/dL (75-99)
[2021-10-06] MEDS: INSULIN DETEMIR (LEVEMIR) 100 UNIT/ML SYR SQ SCH (19:05)
[2021-10-06 20:09] LABS: Glucose,Whole Blood 203 mg/dL (75-99)
[2021-10-06] MEDS: NITROGLYCERIN SL TABS 0.4 MG TAB SUBLINGUAL PRN ×3 (20:11→20:30)
[2021-10-06] MEDS ORDERED: HYDROmorphone 0.5 MG/0.5 ML SYRINGE IVP PRN (20:26)
[2021-10-06] MEDS ORDERED: METOPROLOL TARTRATE 50 MG TAB PO STA (20:27)
[2021-10-06] MEDS ORDERED: amLODIPine 5 MG TAB PO STA (20:28)
[2021-10-06] MEDS ORDERED: HEPARIN SODIUM 1,000 UN/ML (10ML VL) IV PRN (20:29)
[2021-10-06] MEDS ORDERED: HEPARIN SOD,PORK IN 0.45% NACL 25,000 UNIT in 0.45% NACL 1 250ML.BAG IV SCH (20:30)
--- NOTE | 2021-10-06 20:47 | P.PN ---
Progress Note - Text Progress Note Date: 10/06/21 Presenting complaint: Chest pain History of presenting complaint: This is a 51-year-old patient was chronic stable medical conditions include diabetes mellitus type 2, hypertension, CK D stage III, GERD, gout with known coronary artery disease and prior 5 stents. Patient had been present for 15 years really has not prolonged cold. [facility] Patient presented to [facility] with chest hour left- sided precordial pain. Admitted with unstable angina. Put on IV heparin. Troponins were negative. Patient was transferred to [facility] in [place] for further intervention. Patient had a nuclear stress test that showed reversibility. Patient yesterday underwent cardiac catheterization was found to have triple-vessel disease. Cardiothoracic surgery's been consulted. Currently no chest pain. 2-D echo showed EF of 55-60% October 05: Sitting up in bed. No chest pain. Oral intake good. Consult nephrology. October 06: Comfortable. No chest pain no shortness of breath. Being scheduled for coronary bypass tomorrow. GPS Tether has been taken of a by the police deputy. PAMELA inhibitor held by nephrology. reviiew of systems: Was done for constitutional, cardiovascular, GI, pulmonary. relevant finding as above Active Medications Acetaminophen (Acetaminophen Tab 325 Mg Tab) 650 mg PO Q6HR PRN PRN Reason: Mild Pain or Fever > 100.5 Albuterol/Ipratropium (Ipratropium-Albuterol 3 Ml Neb) 3 ml INHALATION RT-TID [facility] Last Admin: 10/06/21 19:43 Dose: 3 ml Documented by: Allopurinol (Allopurinol 100 Mg Tab) 100 mg PO DAILY [facility] Last Admin: 10/06/21 10:46 Dose: 100 mg Documented by: Alprazolam (Alprazolam 0.25 Mg Tab) 0.25 mg PO Q6HR PRN PRN Reason: Mild Anxiety Alprazolam (Alprazolam 0.5 Mg Tab) 0.5 mg PO Q6HR PRN PRN Reason: Moderate Anxiety Amlodipine Besylate (Amlodipine 5 Mg Tab) 5 mg PO DAILY [facility] Last Admin: 10/06/21 10:46 Dose: 5 mg Documented by: Aspirin (Aspirin 325 Mg Tab) 325 mg PO DAILY [facility] Stop: 10/06/21 23:59 Last Admin: 10/06/21 10:46 Dose: 325 mg Documented by: Aspirin (Aspirin 325 Mg Tab) 325 mg PO ONCE ONE Stop: 10/07/21 05:01 Atorvastatin Calcium (Atorvastatin 80 Mg Tab) 80 mg PO HS NAYELY Last Admin: 10/05/21 20:11 Dose: 80 mg Documented by: Atorvastatin Calcium (Atorvastatin 10 Mg Tab) 10 mg PO ONCE ONE Stop: 10/07/21 05:01 Calcium Carbonate/Glycine (Calcium Carbonate 500 Mg Chewable) 1,000 mg PO Q4HR PRN PRN Reason: Dyspepsia Calcium Chloride (Calcium Chloride 100 Mg/Ml 10 Ml Syringe) 1,000 mg IVP ONCE ONE Stop: 10/07/21 05:01 Chlorhexidine Gluconate (Chlorhexidine Gluconate 15 Ml Cup) 15 ml MUCOUS MEM ONCE ONE Stop: 10/07/21 05:01 Heparin Sodium (Porcine) (Heparin Sodium 1,000 Un/Ml (10ml Vl)) 10,000 unit IV ONCE ONE Stop: 10/07/21 05:01 Heparin Sodium (Porcine) (Heparin Sodium,Porcine 30 Ml 1,000 Unit/Ml Vial) 30,000 unit IV ONCE ONE Stop: 10/07/21 05:01 Heparin Sodium (Porcine) (Heparin Sodium,Porcine 30 Ml 1,000 Unit/Ml Vial) 30,000 unit IV ONCE ONE Stop: 10/07/21 05:01 Heparin Sodium (Porcine) (Heparin Sodium,Porcine 30 Ml 1,000 Unit/Ml Vial) 30,000 unit IV ONCE ONE Stop: 10/07/21 05:01 Heparin Sodium (Porcine) (Heparin Sodium 1,000 Un/Ml (10ml Vl)) 0 unit IV PER PROTOCOL PRN; Protocol PRN Reason: Low PTT Hydromorphone HCl (Hydromorphone 0.5 Mg/0.5 Ml Syringe) 0.5 mg IVP Q3HR PRN PRN Reason: Pain Last Admin: 10/06/21 20:34 Dose: 0.5 mg Documented by: Sodium Chloride (Saline 0.9%) 1,000 mls @ 50 mls/hr IV .Q20H NAYELY Last Admin: 10/06/21 10:46 Dose: 50 mls/hr Documented by: Heparin Sodium (Porcine) 5,000 (unit/ Sodium Chloride) 501 mls @ 0 mls/hr IV ONCE ONE Stop: 10/07/21 05:01 Protamine Sulfate 250 mg/ IV (Solution) 25 mls @ 0 mls/hr IV ONCE ONE Stop: 10/07/21 05:01 Nitroglycerin/Dextrose 50 mg/ (IV Solution) 250 mls @ 1.5 mls/hr IV .Q24H NAYELY; Protocol Albumin Human 50 ml/ IV (Solution) 50 mls @ 100 mls/hr IVPB ONCE ONE; Protocol Stop: 10/07/21 05:29 Albumin Human 50 ml/ IV (Solution) 50 mls @ 100 mls/hr IVPB ONCE ONE; Protocol Stop: 10/07/21 05:29 Clevidipine 25 mg/ IV Solution 50 mls @ 2 mls/hr IV .Q24H NAYELY; Protocol Phenylephrine HCl 40 mg/ (Sodium Chloride) 254 mls @ 0 mls/hr IV .Q0M ONE; Protocol Stop: 10/07/21 05:01 Albumin Human 500 ml/ IV (Solution) 500 mls @ 250 mls/hr IVPB ONCE ONE; Protocol Stop: 10/07/21 06:59 Albumin Human 500 ml/ IV (Solution) 500 mls @ 250 mls/hr IVPB ONCE ONE; Protocol Stop: 10/07/21 06:59 Albumin Human 500 ml/ IV (Solution) 500 mls @ 250 mls/hr IVPB ONCE ONE; Protocol Stop: 10/07/21 06:59 Albumin Human 500 ml/ IV (Solution) 500 mls @ 250 mls/hr IVPB ONCE ONE; Protocol Stop: 10/07/21 06:59 Albumin Human 500 ml/ IV (Solution) 500 mls @ 250 mls/hr IVPB ONCE ONE; Protocol Stop: 10/07/21 06:59 Albumin Human 500 ml/ IV (Solution) 500 mls @ 250 mls/hr IVPB ONCE ONE; Protocol Stop: 10/07/21 06:59 Norepinephrine Bitartrate 4 mg (/ Sodium Chloride) 254 mls @ 0 mls/hr IV .Q0M NAYELY; Protocol Propofol 1,000 mg/ IV Solution 100 mls @ 0 mls/hr IV .Q0M PRN; Protocol PRN Reason: Per Protocol Magnesium Sulfate 16.24 meq/ (IV Solution) 4.06 mls @ 0 mls/hr IV ONCE ONE Stop: 10/07/21 05:01 Sodium Chloride (Saline 0.9%) 1,000 mls @ 10 mls/hr IV .Q24H ANYELY Cefazolin Sodium 2 gm/ Sodium (Chloride) 50 mls @ 100 mls/hr IVPB ONCE ONE Stop: 10/07/21 05:29 Cefazolin Sodium 1,000 mg/ (Sodium Chloride) 1,000 mls @ 999 mls/hr IRRIGATION ONCE ONE Stop: 10/07/21 06:00 Cefazolin Sodium 2 gm/ Sodium (Chloride) 50 mls @ 100 mls/hr IVPB ONCE ONE Stop: 10/07/21 05:29 Potassium Chloride 100 meq/Magnesium Sulfate 16 meq/Sodium Bicarbonate 40 ml/Lidocaine HCl 100 mg/Parenteral Electrolytes 1,104 mls @ 0 mls/hr IV .Q0M NAYELY Potassium Chloride 40 meq/Magnesium Sulfate 16 meq/Sodium Bicarbonate 40 ml/Lidocaine HCl 100 mg/Parenteral Electrolytes 1,074 mls @ 0 mls/hr IV .Q0M NAYELY Tranexamic Acid 2,000 mg/ (Sodium Chloride) 200 mls @ 0 mls/hr IV .Q0M ONE; Protocol Stop: 10/07/21 05:01 Diltiazem HCl 125 mg/ Sodium (Chloride) 125 mls @ 5 mls/hr IV .Q24H NAYELY Papaverine HCl 360 mg/ Sodium (Chloride) 102 mls @ 0 mls/hr IV ONCE ONE Stop: 10/07/21 05:01 Insulin Human Regular 100 unit (/ Sodium Chloride) 100 mls @ 0 mls/hr IV .Q0M [facility]; Protocol Heparin Sodium/Sodium Chloride (25,000 unit/ Sodium Chloride) 250 mls @ 8.28 mls/hr IV .Q24H NAYELY; Protocol Insulin Aspart (Insulin Aspart (Novolog) 100 Unit/Ml Vial) 0 unit SQ ACHS [facility]; Protocol Last Admin: 10/06/21 18:22 Dose: 2 unit Documented by: Insulin Detemir (Insulin Detemir (Levemir) 100 Unit/Ml Syr) 14 unit SQ HS [facility] Last Admin: 10/06/21 19:05 Dose: Not Given Documented by: Isosorbide Mononitrate (Isosorbide Mononitrate Er 60 Mg Tab.Er.24h) 60 mg PO DAILY [facility] Last Admin: 10/06/21 10:46 Dose: 60 mg Documented by: Lactulose (Lactulose 20 Gm/30 Ml Cup) 20 gm PO DAILY PRN PRN Reason: Constipation Lorazepam (Lorazepam 0.5 Mg Tab) 0.5 mg PO Q6HR PRN PRN Reason: Anxiety Mannitol (Mannitol 25% 12.5 Gm/50 Ml Vial) 12.5 gm IV ONCE ONE Stop: 10/07/21 05:01 Mannitol (Mannitol 25% 12.5 Gm/50 Ml Vial) 12.5 gm IV ONCE ONE Stop: 10/07/21 05:01 Melatonin (Melatonin 3 Mg Tablet) 3 mg PO HS PRN PRN Reason: Insomnia Metoprolol Tartrate (Metoprolol Tartrate 25 Mg Tab) 25 mg PO BID [facility] Stop: 10/06/21 23:59 Last Admin: 10/06/21 20:42 Dose: Not Given Documented by: Metoprolol Tartrate (Metoprolol Tartrate 12.5 Mg Tab) 12.5 mg PO ONCE ONE Stop: 10/07/21 05:01 Mupirocin (Mupirocin 2% Oint 22 Gm Tube) 1 applic NASAL BID [facility]; Protocol Last Admin: 10/06/21 10:46 Dose: 1 applic Documented by: Naloxone HCl (Naloxone 0.4 Mg/Ml 1 Ml Vial) 0.2 mg IV Q2M PRN PRN Reason: Opioid Reversal Nitroglycerin (Nitroglycerin Sl Tabs 0.4 Mg Tab) 0.4 mg SUBLINGUAL Q5M PRN PRN Reason: Chest Pain Last Admin: 10/06/21 20:30 Dose: 0.4 mg Documented by: Nitroglycerin/Dextrose (Nitroglycerin-D5w Pmx 25 Mg/250 Ml Btl) 1 mg IV ONCE ONE Stop: 10/07/21 05:01 Ondansetron HCl (Ondansetron 4 Mg/2 Ml Vial) 4 mg IVP Q8HR PRN PRN Reason: Nausea And Vomiting Pantoprazole Sodium (Pantoprazole 40 Mg Tablet) 40 mg PO -BRKFST [facility] Last Admin: 10/06/21 06:31 Dose: 40 mg Documented by: Phenylephrine HCl (Phenylephrine 10 Mg/Ml Vial) 0 mg IV ONCE ONE Stop: 10/07/21 05:01 Protamine Sulfate (Protamine Sulfate 10 Mg/Ml 25 Ml Vial) 250 mg IV ONCE ONE Stop: 10/07/21 05:01 Sodium Bicarbonate (Sodium Bicarb 8.4% 50 Ml Syr (1 Meq/Ml)) 50 ml IV ONCE ONE Stop: 10/07/21 05:01 Past medical history to include: Diabetes mellitus type 2, CAD with 5 stents, hypertension, CK D stage III, GERD, gout, obstructive sleep apnea, bipolar Social history: Patient average 3-4 packs a day for close to 40 years. Now a few cigarettes a day. Currently living at half a house. Was in the [facility] recently for last 15 years. Family history: Mesothelioma, heart disease Physical examination: VITAL SIGNS: 98.3, 71, 15, 1 23 x 73, 95% room air GENERAL: , reclining, awake, comfortable. EYES: Pupils equal. Conjunctiva normal. HEENT: External appearance of nose and ears normal, oral cavity grossly normal. NECK: JVD not raised; masses not palpable. HEART: First and second heart sounds are normal; no edema. LUNGS: Respiratory rate normal; decreased breath sounds. ABDOMEN: Soft, nontender, liver spleen not palpable, no masses palpable. PSYCH: Alert and oriented x3; mood and affect normal. INVESTIGATIONS, reviewed in the clinical context: October 06: Potassium 4.3 creatinine 1.75 Renal ultrasound: Difficult exam due to patient body habitus. October 05: Hemoglobin 11.5 creatinine 1.67 White count is 6.3 hemoglobin 11.9 platelets 189 sodium 139 potassium 4.6 BUN 28 creatinine 1.55 Accu-Cheks noted HbA1c 6.3 TSH 1.6 Acute hepatitis panel for A, B, and C: Not reactive Coronavirus [PCR]: Not detected 2-D echocardiogram: Moderate concentric LVH. EF 55-60% Chest x-ray film personally reviewed by me-cardiomegaly. Telemetry tracings personally reviewed by me: Sinus rhythm, T-wave changes Assessment and plan: -Unstable angina in a patient with known coronary artery disease -Triple-vessel coronary artery disease following cardiac catheterization Scheduled for coronary bypass tomorrows -Coronary artery disease with prior 5 stents Aspirin 325 mg a day, Lipitor 40 mg daily, Zestril 40 mg daily, Lopressor 25 mg twice a day -COPD in a previous smoker DuoNeb 3 times a day -Chronic kidney disease stage III likely from diabetic nephropathy and nephrosclerosis Follow renal function closely. Given cardiac catheterization IV fluids. nephrology consult -Normocytic anemia of chronic disease from CK D Check iron studies -Diabetes mellitus type 2 on oral hypoglycemic Hold glipizide. Start Levemir.. Follow Accu-Cheks -Essential hypertension Amlodipine 5 mg a day Lopressor 25 mg twice a day Zestril 40 mg a day -Chronic gout Allopurinol 100 mg a day -Morbid obesity BMI 40.2 PAMELA inhibitor held by nephrology. Scheduled for Celio bypass tomorrow. Discussed with patient.
[2021-10-06] MEDS: ATORVASTATIN 80 MG TAB PO SCH (21:25)
[2021-10-07 04:24] LABS: Basophils % (A) 1 %; Eosinophils # (A) 0.2 k/uL (0-0.7); Eosinophils % (A) 5 %; HCT 32.5 % (39.0-53.0); HGB 10.5 gm/dL (13.0-17.5); Hypochromasia Slight; Lymphocytes # (A) 1.3 k/uL (1.0-4.8); Lymphocytes % (A) 28 %; MCH 29.6 pg (25.0-35.0); MCHC 32.3 g/dL (31.0-37.0); MCV 91.6 fL (80.0-100.0); Mean Platelet Volume 7.5; Monocytes # (A) 0.2 k/uL (0-1.0); Monocytes % (A) 4 %; Neutrophils # (A) 2.9 k/uL (1.3-7.7); Neutrophils % (A) 61 %; Platelet Count 166 k/uL (150-450); RBC 3.55 m/uL (4.30-5.90); RDW 14.9 % (11.5-15.5); WBC 4.7 k/uL (3.8-10.6)
[2021-10-07 04:41] LABS: Calcium 8.6 mg/dL (8.4-10.2); Potassium 4.4 mmol/L (3.5-5.1)
[2021-10-07 04:44] LABS: Glucose,Whole Blood 111 mg/dL (75-99)
[2021-10-07] MEDS: PANTOPRAZOLE 40 MG TABLET PO SCH (04:48)
[2021-10-07] MEDS: amLODIPine 5 MG TAB PO SCH (04:48)
[2021-10-07] MEDS: allopurinoL 100 MG TAB PO SCH (04:49)
[2021-10-07] MEDS: ISOSORBIDE MONONITRATE ER 60 MG TAB.ER.24H PO SCH (04:49)
[2021-10-07] MEDS: INSULIN ASPART (NovoLOG) 100 UNIT/ML VIAL SQ SCH ×2 (04:53→15:01)
[2021-10-07] MEDS ORDERED: MANNITOL 25% 12.5 GM/50 ML VIAL IV ONE ×2 (05:00)
[2021-10-07] MEDS ORDERED: ASPIRIN 325 MG TAB PO ONE (05:00)
[2021-10-07] MEDS ORDERED: ALBUMIN HUMAN 25% 50 ML in EMPTY BAG 1 BAG IVPB ONE (05:00)
[2021-10-07] MEDS ORDERED: MAGNESIUM SULFATE 16.24 MEQ in EMPTY SYRINGE 1 SYR IV ONE (05:00)
[2021-10-07] MEDS ORDERED: PHENYLEPHRINE 10 MG/ML VIAL IV ONE (05:00)
[2021-10-07] MEDS ORDERED: ELECTROLYTE-A SOLUTION 1,000 ML with POTASSIUM CHLORIDE 100 MEQ, MAGNESIUM SULFATE 16 M... IV SCH ×5 (05:00)
[2021-10-07] MEDS ORDERED: PROTAMINE SULFATE 250 MG in EMPTY BAG 1 BAG IV ONE (05:00)
[2021-10-07] MEDS ORDERED: NOREPINEPHRINE 4 MG in SODIUM CHLORIDE 0.9% 250 ML IV SCH (05:00)
[2021-10-07] MEDS ORDERED: ATORVASTATIN 10 MG TAB PO ONE (05:00)
[2021-10-07] MEDS ORDERED: ceFAZolin 1,000 MG in SODIUM CHLORIDE 0.9% IRRIGATIO 1,000 ML IRRIGATION ONE (05:00)
[2021-10-07] MEDS ORDERED: CALCIUM CHLORIDE 100 MG/ML 10 ML SYRINGE IVP ONE (05:00)
[2021-10-07] MEDS ORDERED: INSULIN REGULAR 100 UNIT in SODIUM CHLORIDE 0.9% 100 ML IV SCH (05:00)
[2021-10-07] MEDS ORDERED: TRANEXAMIC ACID 2,000 MG in SODIUM CHLORIDE 0.9% 80 ML IV ONE (05:00)
[2021-10-07] MEDS ORDERED: NITROGLYCERIN-D5W PMX 50 MG in DEXTROSE/WATER 1 250ML.BAG IV SCH ×2 (05:00→16:05)
[2021-10-07] MEDS ORDERED: ALBUMIN HUMAN 5% 500 ML in EMPTY BAG 1 BAG IVPB ONE ×6 (05:00)
[2021-10-07] MEDS ORDERED: PROTAMINE SULFATE 10 MG/ML 25 ML VIAL IV ONE ×2 (05:00→07:52)
[2021-10-07] MEDS ORDERED: HEPARIN SODIUM 1,000 UN/ML (10ML VL) IV ONE (05:00)
[2021-10-07] MEDS ORDERED: SODIUM CHLORIDE 0.9% 1,000 ML IV SCH (05:00)
[2021-10-07] MEDS ORDERED: METOPROLOL TARTRATE 12.5 MG TAB PO ONE (05:00)
[2021-10-07] MEDS ORDERED: ELECTROLYTE-A SOLUTION 1,000 ML with POTASSIUM CHLORIDE 40 MEQ, MAGNESIUM SULFATE 16 ME... IV SCH ×5 (05:00)
[2021-10-07] MEDS ORDERED: PHENYLEPHRINE 40 MG in SODIUM CHLORIDE 0.9% 250 ML IV ONE (05:00)
[2021-10-07] MEDS ORDERED: NITROGLYCERIN-D5W PMX 25 MG/250 ML BTL IV ONE (05:00)
[2021-10-07] MEDS ORDERED: CHLORHEXIDINE GLUCONATE 15 ML CUP MUCOUS MEM ONE (05:00)
[2021-10-07] MEDS ORDERED: SODIUM BICARB 8.4% 50 ML SYR (1 MEQ/ML) IV ONE (05:00)
[2021-10-07] MEDS ORDERED: HEPARIN SODIUM,PORCINE 5,000 UNIT in SODIUM CHLORIDE 0.9% 500 ML 500 ML IV ONE (05:00)
[2021-10-07] MEDS ORDERED: DILTIAZEM 125 MG in SODIUM CHLORIDE 0.9% 100 ML IV SCH (05:00)
[2021-10-07] MEDS ORDERED: PAPAVERINE 360 MG in SODIUM CHLORIDE 0.9% 90 ML IV ONE (05:00)
[2021-10-07] MEDS ORDERED: IV FLUID CONTINUATION 1,000 ML IV ONE (06:19)
[2021-10-07] MEDS: IPRATROPIUM-ALBUTEROL 3 ML NEB INHALATION SCH ×4 (07:36→19:01)
[2021-10-07] MEDS ORDERED: SODIUM CHLORIDE 0.9% 250 ML BAG ONE (07:52)
[2021-10-07] MEDS ORDERED: MIDAZOLAM 2 MG/2 ML VIAL ONE (07:52)
[2021-10-07] MEDS ORDERED: SODIUM CHLORIDE 0.9% 100 ML BAG ONE (07:52)
[2021-10-07] MEDS ORDERED: ALBUMIN HUMAN 5% (25gm) 500 ML VIAL IVPB ONE (07:52)
[2021-10-07] MEDS ORDERED: INSULIN REGULAR 100 UNIT/ML VIAL (IV) ONE (07:52)
[2021-10-07] MEDS ORDERED: PROPOFOL 10 MG/ML 20 ML VIAL IV ONE (07:52)
[2021-10-07] MEDS ORDERED: TRANEXAMIC ACID 1,000 MG/10 ML VIAL ONE (07:52)
[2021-10-07] MEDS ORDERED: ELECTROLYTE-R (PH 7.4) 1,000 ML IV.SOLN IV ONE (07:52)
[2021-10-07] MEDS ORDERED: SODIUM CHLORIDE 0.9% IRRIG 1,000 ML BTL IRRIGATION ONE (07:52)
[2021-10-07] MEDS ORDERED: VECURONIUM 10 MG VIAL IV ONE (07:52)
[2021-10-07] MEDS ORDERED: SUCCINYLCHOLINE CHLORIDE 100 MG/5 ML SYR IV ONE (07:52)
[2021-10-07] MEDS ORDERED: SUFentanil 50 MCG/ML 1 ML AMP IV ONE (07:52)
[2021-10-07] MEDS ORDERED: ceFAZolin 1,000 MG VIAL ONE (07:52)
[2021-10-07] MEDS ORDERED: fentaNYL (PF) 50 MCG/ML 50 ML VIAL ONE (07:52)
[2021-10-07] MEDS ORDERED: HEPARIN SODIUM,PORCINE 10,000 UNIT/ML 1 ML VIAL ONE (07:52)
[2021-10-07] MEDS ORDERED: SODIUM CHLORIDE 0.9% 50 ML with ceFAZolin 1,000 MG IV ONE ×2 (08:30)
[2021-10-07 08:50] LABS: ABG Base Excess -0.2 mmol/L; ABG Glucose Whole Blood 107 mg/dL (75-99); ABG HCO3 25 mmol/L (21-25); ABG Hematocrit 29 % (34.0-46.0); ABG Ionized Calcium 4.6 mg/dL (4.5-5.3); ABG PCO2 44 mmHg (35-45); ABG PH 7.37 (7.35-7.45); ABG Sodium Whole Blood 140 mmol/L (135-146); ABG TCO2 27 mmol/L (19-24)
[2021-10-07] MEDS ORDERED: lisinopriL 10 MG TAB PO SCH (09:00)
[2021-10-07 11:25] LABS: ABG Base Excess 0.2 mmol/L; ABG Glucose Whole Blood 120 mg/dL (75-99); ABG HCO3 25 mmol/L (21-25); ABG Hematocrit 29 % (34.0-46.0); ABG Ionized Calcium 4.6 mg/dL (4.5-5.3); ABG Lactic Acid Whole Blood 0.9 mmol/L (0.5-1.6); ABG Oxygen Saturation 99.9 % (94-97); ABG PCO2 42 mmHg (35-45); ABG PH 7.39 (7.35-7.45); ABG PO2 248 mmHg (83-108); ABG Potassium Whole Blood 4.7 mmol/L (3.4-4.5); ABG Sodium Whole Blood 140 mmol/L (135-146); ABG TCO2 27 mmol/L (19-24)
[2021-10-07 12:35] LABS: ABG Base Excess -0.8 mmol/L; ABG Glucose Whole Blood 115 mg/dL (75-99); ABG HCO3 25 mmol/L (21-25); ABG Ionized Calcium 4.2 mg/dL (4.5-5.3); ABG Lactic Acid Whole Blood 0.9 mmol/L (0.5-1.6); ABG PCO2 46 mmHg (35-45); ABG PH 7.35 (7.35-7.45); ABG PO2 414 mmHg (83-108); ABG Potassium Whole Blood 4.5 mmol/L (3.4-4.5); ABG Sodium Whole Blood 137 mmol/L (135-146); ABG TCO2 26 mmol/L (19-24)
[2021-10-07 13:29] LABS: ABG Base Excess -0.2 mmol/L; ABG Glucose Whole Blood 135 mg/dL (75-99); ABG HCO3 25 mmol/L (21-25); ABG Hematocrit 25 % (34.0-46.0); ABG Ionized Calcium 4.3 mg/dL (4.5-5.3); ABG Lactic Acid Whole Blood 1.2 mmol/L (0.5-1.6); ABG Oxygen Saturation 99.9 % (94-97); ABG PCO2 43 mmHg (35-45); ABG PH 7.37 (7.35-7.45); ABG PO2 178 mmHg (83-108); ABG Potassium Whole Blood 5.2 mmol/L (3.4-4.5); ABG Sodium Whole Blood 138 mmol/L (135-146); ABG TCO2 27 mmol/L (19-24)
[2021-10-07] MEDS: CLEVIDIPINE BUTYRATE 25 MG in EMPTY BAG 1 BAG IV SCH ×3 (14:57→17:30)
[2021-10-07] MEDS: MUPIROCIN 2% OINT 22 GM TUBE NASAL SCH ×2 (15:00→21:19)
[2021-10-07] MEDS: SODIUM CHLORIDE 0.9% 1,000 ML IV SCH ×2 (15:00→17:26)
[2021-10-07] MEDS ORDERED: Phosphorus Replacement Protoco 1 EACH MISC MISCELLANE PRN (16:05)
[2021-10-07] MEDS ORDERED: DEXTROSE 5% IN WATER 100 ML with AMIODARONE 150 MG IV PRN (16:05)
[2021-10-07] MEDS ORDERED: METOCLOPRAMIDE 5 MG/ML 2 ML VIAL IVP PRN (16:05)
[2021-10-07] MEDS ORDERED: BENZOCAINE/MENTHOL LOZENG 1 EACH LOZENGE MUCOUS MEM PRN (16:05)
[2021-10-07] MEDS ORDERED: MORPHINE SULFATE 2 MG/ML SYRINGE IVP PRN (16:05)
[2021-10-07] MEDS ORDERED: DEXMEDETOMIDINE/0.9% NACL(PMX) 400 MCG in EMPTY BAG 1 BAG IV SCH (16:05)
[2021-10-07] MEDS ORDERED: ONDANSETRON 4 MG/2 ML VIAL IVP PRN (16:05)
[2021-10-07] MEDS ORDERED: Potassium Replacement Protocol 1 EACH MISC MISCELLANE PRN (16:05)
[2021-10-07] MEDS ORDERED: ALBUMIN HUMAN 5% 250 ML in EMPTY BAG 1 BAG IVPB PRN (16:05)
[2021-10-07] MEDS ORDERED: Magnesium Replacement Protocol 1 EACH MISC MISCELLANE PRN (16:05)
[2021-10-07] MEDS ORDERED: IPRATROPIUM-ALBUTEROL 3 ML NEB INHALATION PRN (16:05)
[2021-10-07] MEDS ORDERED: CALCIUM GLUCONATE 2 GM in SODIUM CHLORIDE 0.9% 100 ML IVPB PRN (16:05)
[2021-10-07] MEDS ORDERED: hydrALAZINE HCL 20 MG/ML 1 ML VIAL IVP PRN (16:05)
[2021-10-07] MEDS ORDERED: AMIODARONE 360 MG in DEXTROSE 5% IN WATER 200 ML IV PRN ×2 (16:05)
[2021-10-07] MEDS: HEPARIN SODIUM,PORCINE/PF 5,000 UNIT/0.5 ML SYRINGE SQ SCH (16:05)
[2021-10-07 16:08] LABS: ABG PO2 >420 mmHg (83-108)
[2021-10-07 16:10] LABS: ABG Hematocrit 24 % (34.0-46.0)
[2021-10-07 17:05] LABS: Glucose,Whole Blood 108 mg/dL (75-99)
[2021-10-07 17:33] LABS: ABG Base Excess -1.6 mmol/L; ABG HCO3 24 mmol/L (21-25); ABG PCO2 47 mmHg (35-45); ABG PH 7.32 (7.35-7.45); ABG PO2 300 mmHg (83-108); ABG TCO2 26 mmol/L (19-24)
[2021-10-07 17:36] LABS: Allen Test Performed? no
[2021-10-07 17:45] LABS: Ionized Calcium 4.9 mg/dL (4.5-5.3)
--- NOTE | 2021-10-07 17:45 | P.PN ---
Subjective Progress Note Date: 10/07/21 51-year-old male with history of CAD, prior myocardial infarction, and stenting, 2008, as well as hypertension, hyperlipidemia, diabetes, COPD, sleep apnea, anemia, and chronic tobacco use, who had a catheterization at [facility]. It showed multivessel coronary artery disease, and the patient is apparently being evaluated for possible eye past grafting. The patient's currently not receiving any supplemental oxygen. The patient is on saline IV at [facility] He has smoked for many years. The patient apparently has recently been out of half-way, and is currently wearing a tender. 10/06/2021, the patient is being seen for a follow-up. As we are following up this patient, the patient is being worked up for coronary artery bypass surgery as the patient is known to have multivessel coronary disease with triple-vessel involvement. The patient undergone a previous myocardial infarction and previous stenting 5. The patient also has history of hypertension, hyperlipidemia, [id number] diabetes mellitus, chronic stage III kidney disease and obstructive sleep apnea not utilizing CPAP therapy. The patient also has gout, chronic anemia and premature history of coronary artery disease. The patient has been vaccinated and boosted for COVID 19 infections. The patient is currently using incentive spirometer. He is pulling approximately 3000. His free of any chest pain for now. Spirometry was done and the patient was found to have an FEV1 of 2.41 L and the patient had an MCV of 90.4 L per minute. Otherwise, the patient is doing well. No significant complaints for now. His free of any chest pain. His cardiac catheterization with an [facility]. 10/07/2021, the patient is being seen in the intensive care unit. Following coronary artery bypass surgery. The patient undergone four-vessel bypass surgery. At this point in time, the patient is sedated and the patient is currently on propofol running at 50 mcg/kg per minute. The patient was brought in to the ICU on assist control mode of mechanical ventilation at the rate of 12, tidal volume of 550, PEEP of 10 and FiO2 of 60%. The blood gases showed a pH of 7.32 with a pCO2 of 47 and pO2 of 300. Based on that, the FiO2 was dropped down to 60% and the rate was increased up to 20. The chest x-ray was done in the ICU and the patient had adequate expansion of both lungs. ET tube was in good location. Sylvester-Danae catheter was in a good location. The patient has a left pleural and 2 mediastinal chest tubes. Output from the chest tubes have been in the order of 100 mL from the mediastinal chest tube and 50 mL from the left pleural chest tube. Current pulmonary artery pressures of 49/32. Her net output is at 7.9 with an index of 3.3. The patient is currently on Catapres at 4 mg an hour for blood pressure control. The chest x-ray shows no evidence of any pneumothorax. There is adequate expansion of both lungs bilaterally. The patient has adequate urine output. The patient's hypothermic with a temperature cor of 36.4 and the patient is receiving external warming at this point in time. No other significant events otherwise. The patient is also on nitroglycerin 5 micrograms per minute. Objective - Vital Signs Vital signs: Vital Signs Temp 97.2 F L 10/07/21 06:22 Pulse 61 10/07/21 06:22 Resp 18 10/07/21 04:42 BP 130/84 10/07/21 06:22 Pulse Ox 98 10/07/21 06:22 Intake & Output 10/06/21 10/07/21 10/07/21 18:59 06:59 18:59 Intake Total 1060 300 103 Output Total 1200 3200 Balance 1060 -900 -3097 Weight 69 kg Intake: IV 450 300 103 Sodium Chloride 0.9% 1, 450 000 ml @ 50 mls/hr IV . Q20H [facility] Rx#:[id number] Oral 610 Output: Urine 1200 1400 Estimated Blood Loss 1800 Other: # Voids 3 - Exam No acute distress, she is currently sedated and the patient is synchronous with the mechanical ventilator. Orogastric and orotracheal tube are both in place and the patient has a right IJ Sylvester-Danae catheter in place. HEENT examination is grossly unremarkable. Neck supple. Full range of motion. No adenopathy thyromegaly or neck vein distention. Cardiovascular examination reveals regular rhythm rate. S1-S2 normal. No S3 or S4. No discernible murmur noted. Lungs reveal clear breath sounds. Breath sounds are equal bilaterally. No adventitious lung sounds including wheezes rhonchi or crackles. The patient has equal and symmetrical breath sounds. Sternum stable clean and intact. The patient has 2 mediastinal and 1 pleural chest tube on the left. Abdomen soft bowel sounds are heard. No masses or tenderness. Extremities are intact. No cyanosis clubbing or edema. He is wearing a tether on his ankle. Examination of the skin revealed no evidence of significant rashes, suspicious appearing nevi or other concerning lesions. Neurologic examination is brief but nonfocal. The patient is currently sedated on that effect of propofol - Labs CBC & Chem 7: 10/07/21 03:55 10/07/21 03:55 Labs: Abnormal Lab Results - Last 24 Hours (Table) 10/06/21 10/06/21 10/07/21 Range/Units 07:55 20:08 03:55 RBC 3.55 L (4.30-5.90) m/uL Hgb 10.5 L (13.0-17.5) gm/dL Hct 32.5 L (39.0-53.0) % ABG pH (7.35-7.45) ABG pCO2 (35-45) mmHg ABG pO2 (83-108) mmHg ABG Total CO2 (19-24) mmol/L ABG O2 Saturation (94-97) % ABG Hematocrit (34.0-46.0) % ABG Potassium (3.4-4.5) mmol/L ABG Ionized Calcium (4.5-5.3) mg/dL ABG Glucose (75-99) mg/dL Hemoglobin (13.0-17.5) gm/dL BUN (9-20) mg/dL Creatinine (0.66-1.25) mg/dL Glucose (74-99) mg/dL POC Glucose (mg/dL) 203 H (75-99) mg/dL Arterial Blood Potassium (3.4-4.5) mmol/L Arterial Blood Glucose (75-99) mg/dL Crossmatch See Detail 10/07/21 10/07/21 10/07/21 Range/Units 03:55 04:43 08:50 RBC (4.30-5.90) m/uL Hgb (13.0-17.5) gm/dL Hct (39.0-53.0) % ABG pH (7.35-7.45) ABG pCO2 (35-45) mmHg ABG pO2 >420 H (83-108) mmHg ABG Total CO2 27 H (19-24) mmol/L ABG O2 Saturation 100.0 H (94-97) % ABG Hematocrit 29 L (34.0-46.0) % ABG Potassium 5.0 H (3.4-4.5) mmol/L ABG Ionized Calcium (4.5-5.3) mg/dL ABG Glucose 107 H (75-99) mg/dL Hemoglobin 9.5 L (13.0-17.5) gm/dL BUN 30 H (9-20) mg/dL Creatinine 1.70 H (0.66-1.25) mg/dL Glucose 110 H (74-99) mg/dL POC Glucose (mg/dL) 111 H (75-99) mg/dL Arterial Blood Potassium 5.0 H (3.4-4.5) mmol/L Arterial Blood Glucose 107 H (75-99) mg/dL Crossmatch 10/07/21 10/07/21 10/07/21 Range/Units 11:25 13:28 14:20 RBC (4.30-5.90) m/uL Hgb (13.0-17.5) gm/dL Hct (39.0-53.0) % ABG pH (7.35-7.45) ABG pCO2 46 H (35-45) mmHg ABG pO2 248 H 414 H 178 H (83-108) mmHg ABG Total CO2 27 H 26 H 27 H (19-24) mmol/L ABG O2 Saturation 99.9 H 100.0 H 99.9 H (94-97) % ABG Hematocrit 29 L 24 L 25 L (34.0-46.0) % ABG Potassium 4.7 H 5.2 H (3.4-4.5) mmol/L ABG Ionized Calcium 4.2 L 4.3 L (4.5-5.3) mg/dL ABG Glucose 120 H 115 H 135 H (75-99) mg/dL Hemoglobin 9.3 L 7.8 L 8.2 L (13.0-17.5) gm/dL BUN (9-20) mg/dL Creatinine (0.66-1.25) mg/dL Glucose (74-99) mg/dL POC Glucose (mg/dL) (75-99) mg/dL Arterial Blood Potassium 4.7 H 5.2 H (3.4-4.5) mmol/L Arterial Blood Glucose 120 H 115 H 135 H (75-99) mg/dL Crossmatch 10/07/21 10/07/21 Range/Units 17:03 17:31 RBC (4.30-5.90) m/uL Hgb (13.0-17.5) gm/dL Hct (39.0-53.0) % ABG pH 7.32 L (7.35-7.45) ABG pCO2 47 H (35-45) mmHg ABG pO2 300 H (83-108) mmHg ABG Total CO2 26 H (19-24) mmol/L ABG O2 Saturation 100.0 H (94-97) % ABG Hematocrit (34.0-46.0) % ABG Potassium (3.4-4.5) mmol/L ABG Ionized Calcium (4.5-5.3) mg/dL ABG Glucose (75-99) mg/dL Hemoglobin (13.0-17.5) gm/dL BUN (9-20) mg/dL Creatinine (0.66-1.25) mg/dL Glucose (74-99) mg/dL POC Glucose (mg/dL) 108 H (75-99) mg/dL Arterial Blood Potassium (3.4-4.5) mmol/L Arterial Blood Glucose (75-99) mg/dL Crossmatch Assessment and Plan Plan: 1 Multivessel coronary artery disease, with anticipated bypass grafting, next week. The patient has had previous myocardial infarction and stenting 5 most recently in 2008. The patient is currently being evaluated for coronary artery bypass surgery. The patient is post four-vessel bypass surgery. Currently the patient is postop day #0. Still on mechanical ventilator. Hemodynamically stable. Hypertensive currently on a combination of nitroglycerin drip and clevidipine drip for blood pressure control. Adequate cardiac output and index. Adequate urine output. Cardiac rhythm is sinus. 2 post thoracotomy, currently on a mechanical ventilator. All of the chest tubes are in place. 3 History of myocardial infarction, 2008. 4 Essential hypertension. 5 Hyperlipidemia. 6 Diabetes mellitus. The patient has a HbA1c of 6.3% 7 Suspected COPD from chronic tobacco use. The patient has a an FEV1 of 62% of predicted 8 Sleep apnea syndrome. not utilizing CPAP therapy. Body mass index is 21.8 9 History of anemia. 10 chronic stage III kidney disease 11 gout 12 active for COVID 19 including booster shot Plan Chest x-ray was noted. Blood gases was noted. Tentative ventilator changes were done. Increase the respiratory rate up to 20, drop the FiO2 gradually down to 60% and wean down further. Monitor the output from the chest tubes. Monitor hemodynamic parameters include a cardiac output and index. Continue Effexor for blood pressure control. Will monitor the progress and gradually wean off the sedation. Anticipate extubation within next 6 hours Postoperative course has been essentially uneventful for now. We'll continue to follow. Critically care evaluation that was done and more than 30 minutes. Time with Patient: Greater than 30
[2021-10-07 17:53] LABS: Albumin 2.3 g/dL (3.5-5.0); Calcium 7.6 mg/dL (8.4-10.2); Magnesium 2.1 mg/dL (1.6-2.3); Potassium 4.7 mmol/L (3.5-5.1); Total Bilirubin 0.5 mg/dL (0.2-1.3); Total Protein 4.2 g/dL (6.3-8.2)
[2021-10-07 18:01] LABS: Basophils % (A) 0 %; Eosinophils # (A) 0.1 k/uL (0-0.7); Eosinophils % (A) 2 %; HCT 22.5 % (39.0-53.0); Hypochromasia Slight; Lymphocytes # (A) 0.5 k/uL (1.0-4.8); Lymphocytes % (A) 10 %; MCH 30.1 pg (25.0-35.0); MCHC 32.4 g/dL (31.0-37.0); MCV 92.8 fL (80.0-100.0); Mean Platelet Volume 8.9; Monocytes # (A) 0.2 k/uL (0-1.0); Monocytes % (A) 5 %; Neutrophils # (A) 4.2 k/uL (1.3-7.7); Neutrophils % (A) 83 %; RBC 2.43 m/uL (4.30-5.90)
[2021-10-07 18:03] LABS: HGB 7.3 gm/dL (13.0-17.5); INR 1.1 (<1.2); Partial Thromboplastin Time 26.6 sec (22.0-30.0); Prothrombin Time 11.8 sec (9.0-12.0)
[2021-10-07 18:14] LABS: Glucose,Whole Blood 129 mg/dL (75-99)
[2021-10-07] MEDS: INSULIN REGULAR 100 UNIT in SODIUM CHLORIDE 0.9% 100 ML IV SCH (18:24)
[2021-10-07] MEDS: ACETAMINOPHEN IV (For NPO) 1,000 MG in EMPTY BAG 1 BAG IVPB SCH (18:51)
--- NOTE | 2021-10-07 18:56 | XR ---
EXAMINATION TYPE: XR chest 1V portable DATE OF EXAM: 10/07/2021 COMPARISON: 10/04/2021 HISTORY: 51 years Male. STUDY INDICATION GIVEN: Post Operative Cardiac Surgery . TECHNIQUE: AP semiupright chest radiograph IMPRESSION: Tip of endotracheal tube 4 cm above reyes. Enteric tube courses into the left upper abdomen. Right c entral venous catheter (likely swans Danae) projects in the expected location of the proximal right pu lmonary artery. Mediastinal clips wires and catheters now evident. The cardiomediastinal silhouette is mildly enlarged compared to the prior study. There is mild hazine ss of the upper mediastinum on the left. These findings are likely reflective of postsurgical changes . There is mild brain edema and left lung new opacities which may be reflective of postsurgical atelect asis. No significant opacity seen in the right lung. No significant pleural effusion. No pneumothorax appreciated. No acute osseous abnormality seen.
--- NOTE | 2021-10-07 19:05 | OP ---
OPERATIVE REPORT DATE OF SURGERY: 10/07/2021. SURGEON: Dr. Saulo Renee. ASSISTANTS: 1. Kendall Robert, Nurse Practitioner. 2. ASTON Winn. PREOPERATIVE DIAGNOSES: 1. Triple-vessel coronary artery disease, status post prior myocardial infarction and percutaneous coronary stenting. 2. Unstable angina. 3. Hypertension. 4. Hyperlipidemia. 5. Sjd-shheusx-ojvzxlsno diabetes. 6. Obesity. 7. Chronic kidney disease. 8. Obstructive sleep apnea. 9. Anemia. 10.Light tobacco smoking. 11.Positive family history for premature coronary artery disease. 12.Preserved left ventricular function. POSTOPERATIVE DIAGNOSES: 1. Triple-vessel coronary artery disease, status post prior myocardial infarction and percutaneous coronary stenting. 2. Unstable angina. 3. Hypertension. 4. Hyperlipidemia. 5. Vsc-slvfxhr-pqpkyqhve diabetes. 6. Obesity. 7. Chronic kidney disease. 8. Obstructive sleep apnea. 9. Anemia. 10.Light tobacco smoking. 11.Positive family history for premature coronary artery disease. 12.Preserved left ventricular function. 13.Diffuse coronary artery disease. PROCEDURE: 1. Quadruple coronary artery bypass grafting using the left internal mammary artery to the left anterior descending artery, the left radial artery from the aorta to the ramus intermedius artery, reverse saphenous vein graft from the aorta to the second obtuse marginal artery, reverse saphenous vein graft from the aorta to the early rising posterior descending artery. 2. Exclusion of the left atrial appendage using a 45 mm AtriClip. 3. Sternal plating using the Tritium system. 4. Graft flow measurements using the Medistim system. 5. Endoscopic harvesting of the left radial artery. 6. Endoscopic harvesting of the left greater saphenous vein. 7. Intraoperative transesophageal echocardiogram and epiaortic scanning. INDICATIONS FOR SURGERY: The patient is a 51-year-old gentleman with the above risk factors who has been recently released after 15 years of incarceration. Patient had an episode of chest pain and shortness of breath and showed up at [facility], where his troponins were negative. He had a stress test that showed lateral ischemia. Subsequently he was brought in to [facility], where a cardiac catheterization showed triple-vessel coronary artery disease. His echocardiogram showed moderate concentric left ventricular hypertrophy, overall normal systolic function and mild mitral valve regurgitation. Patient is being considered at this point for coronary artery bypass grafting. The STS risk was discussed with him. He understood and agreed to proceed. DESCRIPTION OF THE PROCEDURE: With the patient in supine position, a right internal jugular [place]-Danae catheter and a right radial artery line were placed. Cardiac index was 2.4. Pressure was 40/20. Subsequently he was brought to the operating room, where general endotracheal anesthesia was induced uneventfully. A Martin catheter was inserted. The chest, abdomen, both lower extremities and the left upper extremity were prepped and draped using ChloraPrep. Ioban was used to cover the skin. The patient received 3 grams of cefazolin intravenously. Intraoperative transesophageal echocardiogram confirmed the preoperative finding of preserved systolic function, and there was mild to moderate mitral valve regurgitation at most with a mean artery pressure that was around 95. Midline sternotomy was performed and the bone was reasonably dense. There was a large and thick subcutaneous fatty layer. No bone wax was used, but only Ostene. The left hemisternum was elevated and the left internal mammary artery was harvested in a somewhat skeletonized fashion. Patient was given 5000 units of heparin. The mammary artery was clipped distally and transected. It had an excellent pulsatile flow in it and was around 2.5 mm in diameter. The left pleura was intentionally opened in this process and was drained with a 19-Togolese Rick drain. The right pleura remained intact. In the same setting, the left radial artery was initially exposed at the wrist, and a clamping trial revealed preserved signal in the left index O2 saturation probe. The artery was subsequently harvested endoscopically and the proximal segment ligated via counter incision. The forearm incisions were closed over a drain. The radial artery was prepared by incising the fascia all along its volar aspect and clipping all its branches. It was uniform and normal wall, around 2 mm in diameter. Also in the same setting, the left greater saphenous vein was harvested endoscopically from groin to above ankle level. Patient had been given 2000 units of heparin before the harvesting. The leg incisions were closed over a drain. The vein was prepared by tying all its branches. It had a slightly large size which was proportional to the patient's body habitus, but it was uniform with mild varicosity and was around 4-5 mm in diameter, thin-walled. Ankeney retractor was used. Mediastinal fat was transected between 2 ties and epiaortic scanning revealed no protruding atheroma in the ascending aorta. Pericardium was opened in an inverted T-fashion and a pericardial cradle was created. Findings included a short soft aorta and an enlarged fatty heart. After systemic heparinization and after placement of respective pledgeted pursestrings, aortic cannulation in the proximal arch with a 21-Togolese Soft flow cannula and venous cannulation with a 3-stage 29 F cannula via the right atrial appendage were performed. Antegrade as well as retrograde cardioplegia catheters were placed. Cardiopulmonary bypass was initiated, and with the heart empty and beating we looked at the target. The LAD was diffusely diseased. There was a soft spot in its mid aspect. It was found in the epicardial fat and that would be the site for bypass. The ramus intermedius artery was also diffusely diseased and we picked a soft spot in its proximal to mid aspect. Looking at the lateral wall, the second obtuse marginal artery appeared to be diffusely diseased and imbedded in the fat. We looked closely at it once clamped. The inferior wall showed the early rising posterior descending artery. As far as the posterolateral branches of the right coronary artery which is known to be 100% occluded and collateralized by the left side, they were small, and that area had some fibrotic changes pointing to old infarct, and there was certainly no target for bypass at that level. Aorta was clamped, and during aortic clamping myocardial protection was achieved with an initial dose of around 1.2 L of antegrade cold blood cardioplegia followed by 400 mL of retrograde cold blood cardioplegia. All subsequent doses were given retrograde at 15- to 20-minute intervals. We started by excluding the left atrial appendage by deploying a 45 mm AtriClip at its base. The first distal anastomosis was between a segment of vein and the early rising posterior descending artery which was opened and was around 1.7 mm in diameter using Prolene 7-0 in continuous fashion. Again there was diffuse disease. The second distal anastomosis was between another segment of vein and the second obtuse marginal artery, which was found deep in the fat and was diffusely diseased. However, I picked a spot that was soft. I opened it and it was around 1.5 mm in diameter and the anastomosis was completed using Prolene 7-0 in continuous fashion. The third distal anastomosis was between the radial artery and the ramus intermedius artery, which was a good soft spot, around 2.5 mm in diameter, using Prolene 7-0 in continuous fashion. The fourth distal anastomosis was between the left internal mammary artery that passed in a deep groove in the left pleural pericardial fat and anastomosed to the mid aspect of the left anterior descending artery, where it was around 2 mm in diameter and thin- walled, using Prolene 7-0 in continuous fashion. Satisfied with the distal anastomoses, rewarming was started as we punched out 3 buttons of the ascending aorta and performed the 2 proximal anastomoses of the veins with Prolene 6-0 and the proximal anastomoses of the radial artery with Prolene 7-0 in continuous fashion. At this point de-airing maneuvers were followed. The patient was placed in Trendelenburg position. The aortic vent was placed at maximum as we unclamped the aorta. The patient regained spontaneous but slow junctional rhythm and eventually a slow sinus rhythm. Preliminary graft flow revealed patent grafts. After around 20 minutes of reperfusion and after establishing atrial pacing via 2 monopolar atrial pacing wires that were affixed to the respective pursestrings on the right atrium, we were able to wean off cardiopulmonary bypass without the need of any inotropic or vasopressor support. The MITESH showed good LV function. Cardiac index was 2.5 and we had normal PA pressure. At this point, we proceeded with formal graft flow measurements. A 5 mm probe was selected and the flow into the vein to the posterior descending artery was 39 mL/minute, pulsatility index of 5 and diastolic filling of 44%. The flow into the vein to the second obtuse marginal artery was 77 mL/minute, pulsatility index of 2.6, diastolic filling of 72%. A 2 mm probe was selected and the flow into the radial artery to the ramus intermedius artery was 38 mL/minute, pulsatility index of 1.7, diastolic filling of 76%. The flow into the left internal mammary artery to the left anterior descending artery was 31 mL/minute, pulsatility index of 3.4, diastolic filling of 70% with some mild competitive flow. Those all showed patent, well- functioning grafts. With that, all pump suckers were stopped. Test-dose and then full-dose protamine was given. Decannulation proceeded simultaneously. No reinforcement sutures were needed. One bipolar ventricular pacing wire was driven via inferior aspect of the right ventricle. Two 19-Togolese Rick drains were left substernally. Pericardial fat was approximated over the heart and the aorta and the grafts. After ensuring adequate hemostasis and hemodynamics and after correct sponge, instrument and needle counts, the sternum was closed using a [id number] [place] cable for the manubrium, reinforced by a V plate from the Tritium system, affixed with four 16 mm screws. Subsequently we had for the body of the sternum two blunt [place] cables as well as two X-shaped Tritium plates that were affixed with 16 mm screws each. Thorough irrigation with cefazolin followed. The rest of the closure proceeded in layers. Skin glue was applied. Patient did not receive any blood bank products. He was anemic with a starting hematocrit of 29 and a hematocrit of 24 leaving in the operating room. He had 500 mL of Cell Saver blood. He had normal hemodynamics, atrial paced at 70 with good conduction and cardiac index 2.5 when he left the operating room. MMCARLOS / NANCIE: [id number] / MTDD
[2021-10-07 19:06] LABS: Basophils % (A) 0 %; Eosinophils # (A) 0.1 k/uL (0-0.7); Eosinophils % (A) 1 %; Glucose,Whole Blood 148 mg/dL (75-99); Hypochromasia Slight; Lymphocytes # (A) 0.5 k/uL (1.0-4.8); Lymphocytes % (A) 7 %; MCH 30.2 pg (25.0-35.0); MCHC 33.1 g/dL (31.0-37.0); MCV 91.3 fL (80.0-100.0); Mean Platelet Volume 9.5; Monocytes # (A) 0.4 k/uL (0-1.0); Monocytes % (A) 5 %; Neutrophils # (A) 6.7 k/uL (1.3-7.7); Neutrophils % (A) 87 %; Platelet Count 121 k/uL (150-450); RBC 2.95 m/uL (4.30-5.90); RDW 14.6 % (11.5-15.5); WBC 7.7 k/uL (3.8-10.6)
[2021-10-07 19:13] LABS: HGB 8.9 gm/dL (13.0-17.5)
[2021-10-07 19:18] LABS: Platelet Count 85 k/uL (150-450); Polychromasia Present
[2021-10-07 19:56] LABS: Glucose,Whole Blood 165 mg/dL (75-99)
--- NOTE | 2021-10-07 20:39 | P.PN ---
Progress Note - Text Progress Note Date: 10/07/21 Presenting complaint: Chest pain History of presenting complaint: This is a 51-year-old patient was chronic stable medical conditions include diabetes mellitus type 2, hypertension, CK D stage III, GERD, gout with known coronary artery disease and prior 5 stents. Patient had been present for 15 years really has not prolonged cold. He was being followed at the long term physician. Patient presented to [facility] with chest hour left- sided precordial pain. Admitted with unstable angina. Put on IV heparin. Troponins were negative. Patient was transferred to [facility] in [place] for further intervention. Patient had a nuclear stress test that showed reversibility. Patient yesterday underwent cardiac catheterization was found to have triple-vessel disease. Cardiothoracic surgery's been consulted. Currently no chest pain. 2-D echo showed EF of 55-60% October 05: Sitting up in bed. No chest pain. Oral intake good. Consult nephrology. October 06: Comfortable. No chest pain no shortness of breath. Being scheduled for coronary bypass tomorrow. GPS Tether has been taken of a by the police deputy. PAMELA inhibitor held by nephrology. October 07: ICU. Ventilator 50/10. Quadruple coronary bypass. 2 mediastinal one chest tube. Drips include cleviprex, propofol, insulin, nitroglycerin. Sedated. Sinus rhythm. reviiew of systems: Patient intubated Active Medications Hydrocodone Bitart/Acetaminophen (Hydrocodone/Apap 5-325mg 1 Each Tab) 2 each PO Q4HR PRN PRN Reason: Severe Pain Hydrocodone Bitart/Acetaminophen (Hydrocodone/Apap 5-325mg 1 Each Tab) 1 each PO Q4HR PRN PRN Reason: Moderate Pain Albuterol/Ipratropium (Ipratropium-Albuterol 3 Ml Neb) 3 ml INHALATION RT-Q2H PRN PRN Reason: Shortness Of Breath Or Wheezing Albuterol/Ipratropium (Ipratropium-Albuterol 3 Ml Neb) 3 ml INHALATION RT-Q4H [facility] Stop: 10/07/21 22:00 Last Admin: 10/07/21 19:01 Dose: Not Given Documented by: Albuterol/Ipratropium (Ipratropium-Albuterol 3 Ml Neb) 3 ml INHALATION RT-QID [facility] Aspirin (Aspirin 325 Mg Tab) 325 mg PO DAILY [facility] Atorvastatin Calcium (Atorvastatin 80 Mg Tab) 80 mg PO HS [facility] Last Admin: 10/06/21 21:25 Dose: 80 mg Documented by: Benzocaine/Menthol (Benzocaine/Menthol Lozeng 1 Each Lozenge) 1 each MUCOUS MEM Q2H PRN PRN Reason: Sore Throat Bisacodyl (Bisacodyl 10 Mg Supp) 10 mg RECTAL DAILY PRN PRN Reason: Constipation Clopidogrel Bisulfate (Clopidogrel 75 Mg Tab) 75 mg PO DAILY [facility] Heparin Sodium (Porcine) (Heparin Sodium,Porcine/Pf 5,000 Unit/0.5 Ml Syringe) 5,000 unit SQ Q8HR [facility] Last Admin: 10/07/21 16:05 Dose: Not Given Documented by: Hydralazine HCl (Hydralazine Hcl 20 Mg/Ml 1 Ml Vial) 10 mg IVP Q1H PRN PRN Reason: Blood Pressure - High Clevidipine 25 mg/ IV Solution 50 mls @ 2 mls/hr IV .Q24H [facility]; Protocol Last Titration: 10/07/21 19:50 Dose: 0 mg/hr, 0 mls/hr Documented by: Amiodarone HCl 150 mg/ (Dextrose/Water) 103 mls @ 618 mls/hr IV .Q10M PRN; Protocol PRN Reason: A.FIB/FLUTTER Amiodarone HCl 360 mg/ (Dextrose/Water) 207.2 mls @ 34.533 mls/hr IV .Q6H PRN; Protocol PRN Reason: A.FIB/FLUTTER Amiodarone HCl 450 mg/ (Dextrose/Water) 250 mls @ 16.667 mls/hr IV .Q15H PRN; Protocol PRN Reason: A.FIB/FLUTTER Albumin Human 250 ml/ IV (Solution) 250 mls @ 250 mls/hr IVPB Q1HR PRN; Protocol PRN Reason: For Volume Stop: 10/09/21 16:06 Acetaminophen 1,000 mg/ IV (Solution) 100 mls @ 400 mls/hr IVPB Q6HR [facility] Stop: 10/08/21 00:14 Last Admin: 10/07/21 18:51 Dose: 400 mls/hr Documented by: Cefazolin Sodium 2 gm/ Sodium (Chloride) 50 mls @ 100 mls/hr IVPB Q8HR [facility] Stop: 10/08/21 08:29 Last Admin: 10/07/21 17:27 Dose: 100 mls/hr Documented by: Calcium Gluconate 2 gm/ Sodium (Chloride) 120 mls @ 100 mls/hr IVPB ONCE PRN PRN Reason: Ionized Calcium less than 4.4 Stop: 10/17/21 16:06 Nitroglycerin/Dextrose 50 mg/ (IV Solution) 250 mls @ 1.5 mls/hr IV .Q24H [facility] Last Admin: 10/07/21 17:26 Dose: 5 mcg/min, 1.5 mls/hr Documented by: Propofol 1,000 mg/ IV Solution 100 mls @ 0 mls/hr IV .Q0M [facility]; Protocol Last Titration: 10/07/21 20:05 Dose: 0 mcg/kg/min, 0 mls/hr Documented by: Dexmedetomidine HCl 400 mcg/ (IV Solution) 100 mls @ 0 mls/hr IV .Q0M [facility]; Protocol Stop: 10/08/21 16:06 Insulin Human Regular 100 unit (/ Sodium Chloride) 101 mls @ 0 mls/hr IV .Q0M [facility]; Protocol Last Titration: 10/07/21 19:55 Dose: 3.5 unit/hr, 3.535 mls/hr Documented by: Sodium Chloride (Saline 0.9%) 1,000 mls @ 50 mls/hr IV .Q20H [facility] Last Admin: 10/07/21 17:26 Dose: 50 mls/hr Documented by: Magnesium Hydroxide (Magnesium Hydroxide 2,400 Mg/10 Ml Cup) 2,400 mg PO BID PRN PRN Reason: Constipation Metoclopramide HCl (Metoclopramide 5 Mg/Ml 2 Ml Vial) 10 mg IVP Q4H PRN PRN Reason: Nausea And Vomiting Metoprolol Tartrate (Metoprolol Tartrate 12.5 Mg Tab) 12.5 mg PO BID [facility] Miscellaneous Information (Potassium Replacement Protocol 1 Each Misc) 1 each MISCELLANE DAILY PRN; Protocol PRN Reason: Per Protocol Miscellaneous Information (Magnesium Replacement Protocol 1 Each Misc) 1 each MISCELLANE DAILY PRN; Protocol PRN Reason: Per Protocol Miscellaneous Information (Phosphorus Replacement Protoco 1 Each Misc) 1 each MISCELLANE DAILY PRN; Protocol PRN Reason: Per Protocol Morphine Sulfate (Morphine Sulfate 2 Mg/Ml Syringe) 2 mg IVP Q2H PRN PRN Reason: Severe Pain Last Admin: 10/07/21 17:24 Dose: 2 mg Documented by: Mupirocin (Mupirocin 2% Oint 22 Gm Tube) 1 applic NASAL BID NAYELY; Protocol Last Admin: 10/07/21 15:00 Dose: Not Given Documented by: Ondansetron HCl (Ondansetron 4 Mg/2 Ml Vial) 4 mg IVP Q6HR PRN PRN Reason: Nausea And Vomiting Oxycodone HCl (Oxycodone Hcl 5 Mg Tab) 10 mg PO Q4H PRN PRN Reason: Severe Pain Stop: 10/08/21 03:58 Oxycodone HCl (Oxycodone Hcl 5 Mg Tab) 5 mg PO Q4H PRN PRN Reason: Moderate Pain Stop: 10/08/21 03:59 Pantoprazole Sodium (Pantoprazole 40 Mg/10 Ml Vial) 40 mg IVP DAILY [facility] Senna/Docusate Sodium (Sennosides-Docusate Sodium 1 Each Tab) 2 each PO HS [facility] Sodium Chloride (Sodium Chloride 0.9% Flush 10 Ml Syringe) 10 ml IV BID [facility] Past medical history to include: Diabetes mellitus type 2, CAD with 5 stents, hypertension, CK D stage III, GERD, gout, obstructive sleep apnea, bipolar Social history: Patient average 3-4 packs a day for close to 40 years. Now a few cigarettes a day. Currently living at half a house. Was in the long term doctor recently for last 15 years. Family history: Mesothelioma, heart disease Physical examination: VITAL SIGNS: 99, 65, 20, 111/62, 99% on the ventilator GENERAL: , reclining, sedated. 2 mediastinal 1 left pleural chest tube. EYES: Pupils equal. Conjunctiva normal. HEENT: External appearance of nose and ears normal, oral cavity endotracheal tube NECK: JVD unable to assess; masses not palpable. HEART: First and second heart sounds are normal; no edema. LUNGS: Respiratory rate normal; decreased breath sounds. ABDOMEN: Soft, nontender, liver spleen not palpable, no masses palpable. Martin catheter PSYCH: Unable to assess patient sedated Musculoskeletal: Inspection no clubbing cyanosis. Palpation: No obvious bony abnormality INVESTIGATIONS, reviewed in the clinical context: October 07: White count 5 hemoglobin 7.3 platelets 85 potassium 4.7 BUN 24 creatinine 1.34 October 06: Potassium 4.3 creatinine 1.75 Renal ultrasound: Difficult exam due to patient body habitus. October 05: Hemoglobin 11.5 creatinine 1.67 White count is 6.3 hemoglobin 11.9 platelets 189 sodium 139 potassium 4.6 BUN 28 creatinine 1.55 Accu-Cheks noted HbA1c 6.3 TSH 1.6 Acute hepatitis panel for A, B, and C: Not reactive Coronavirus [PCR]: Not detected 2-D echocardiogram: Moderate concentric LVH. EF 55-60% Chest x-ray film personally reviewed by me-cardiomegaly. Telemetry tracings personally reviewed by me: Sinus rhythm, T-wave changes Assessment and plan: -Quadruple coronary bypass. On October [address] Renee -Ventilator support FiO2 50 and a PEEP of 16. -Unstable angina in a patient with known coronary artery disease -Triple-vessel coronary artery disease following cardiac catheterization Scheduled for coronary bypass tomorrows -Coronary artery disease with prior 5 stents Aspirin 325 mg a day, Lipitor 40 mg daily, Zestril 40 mg daily, Lopressor 25 mg twice a day -COPD in a previous smoker DuoNeb 3 times a day -Chronic kidney disease stage III likely from diabetic nephropathy and nephrosclerosis Follow renal function closely. nephrology consult -Normocytic anemia of chronic disease from CK D Check iron studies -Acute postprocedure blood loss anemia, expected from surgery Follow H&H -Acute dilutional thrombocytopenia -Diabetes mellitus type 2 on oral hypoglycemic Insulin drip Follow Accu-Cheks -Essential hypertension Lopressor 12.5 twice a day -Chronic gout Allopurinol 100 mg a day -Morbid obesity BMI 40.2 2 mediastinal 1 left pleural chest tube. Drips include cleviprex, propofol, insulin, nitroglycerin. Telemetry: Sinus rhythm. Ventilator support. Follow Accu-Cheks.
[2021-10-07 21:16] LABS: Glucose,Whole Blood 170 mg/dL (75-99)
[2021-10-07 21:28] LABS: ABG Base Excess -3.1 mmol/L; ABG HCO3 24 mmol/L (21-25); ABG Oxygen Saturation 98.2 % (94-97); ABG PCO2 49 mmHg (35-45); ABG PH 7.29 (7.35-7.45); ABG PO2 105 mmHg (83-108); ABG TCO2 25 mmol/L (19-24)
[2021-10-07 21:37] LABS: Allen Test Performed? no
[2021-10-07 22:08] LABS: Glucose,Whole Blood 167 mg/dL (75-99)
[2021-10-07 22:14] LABS: Basophils % (A) 0 %; Eosinophils # (A) 0.1 k/uL (0-0.7); Eosinophils % (A) 1 %; HCT 25.6 % (39.0-53.0); HGB 8.2 gm/dL (13.0-17.5); Hypochromasia Slight; Lymphocytes # (A) 0.4 k/uL (1.0-4.8); Lymphocytes % (A) 5 %; MCH 29.6 pg (25.0-35.0); MCHC 32.2 g/dL (31.0-37.0); MCV 91.8 fL (80.0-100.0); Mean Platelet Volume 9.9; Monocytes # (A) 0.3 k/uL (0-1.0); Monocytes % (A) 4 %; Neutrophils # (A) 7.5 k/uL (1.3-7.7); Neutrophils % (A) 90 %; Platelet Count 119 k/uL (150-450); RBC 2.79 m/uL (4.30-5.90); RDW 14.8 % (11.5-15.5); WBC 8.3 k/uL (3.8-10.6)
[2021-10-07 23:23] LABS: Glucose,Whole Blood 158 mg/dL (75-99)
[2021-10-08 00:15] LABS: Glucose,Whole Blood 158 mg/dL (75-99)
[2021-10-08] MEDS: ACETAMINOPHEN IV (For NPO) 1,000 MG in EMPTY BAG 1 BAG IVPB SCH (00:22)
[2021-10-08] MEDS: HEPARIN SODIUM,PORCINE/PF 5,000 UNIT/0.5 ML SYRINGE SQ SCH ×4 (00:23→23:19)
[2021-10-08] MEDS: CLEVIDIPINE BUTYRATE 25 MG in EMPTY BAG 1 BAG IV SCH ×2 (00:32→06:20)
[2021-10-08 03:08] LABS: Glucose,Whole Blood 137 mg/dL (75-99)
[2021-10-08] MEDS: ATORVASTATIN 80 MG TAB PO SCH ×2 (03:36→20:03)
[2021-10-08] MEDS ORDERED: HYDROcodone/APAP 5-325MG 1 EACH TAB PO PRN ×2 (03:58→03:59)
[2021-10-08 04:34] LABS: Glucose,Whole Blood 146 mg/dL (75-99)
[2021-10-08 05:27] LABS: Albumin 2.9 g/dL (3.5-5.0); Basophils % (A) 0 %; Calcium 8.2 mg/dL (8.4-10.2); Eosinophils % (A) 0 %; HCT 25.7 % (39.0-53.0); HGB 8.2 gm/dL (13.0-17.5); Hypochromasia Slight; Lymphocytes # (A) 0.4 k/uL (1.0-4.8); Lymphocytes % (A) 4 %; MCH 29.5 pg (25.0-35.0); MCHC 32.1 g/dL (31.0-37.0); MCV 92.1 fL (80.0-100.0); Mean Platelet Volume 8.5; Monocytes # (A) 0.3 k/uL (0-1.0); Monocytes % (A) 4 %; Neutrophils # (A) 7.9 k/uL (1.3-7.7); Neutrophils % (A) 91 %; Platelet Count 141 k/uL (150-450); Potassium 5.2 mmol/L (3.5-5.1); RBC 2.79 m/uL (4.30-5.90); RDW 15.1 % (11.5-15.5); Total Bilirubin 0.5 mg/dL (0.2-1.3); Total Protein 5.1 g/dL (6.3-8.2); WBC 8.7 k/uL (3.8-10.6)
[2021-10-08 06:24] LABS: Glucose,Whole Blood 150 mg/dL (75-99)
--- NOTE | 2021-10-08 06:31 | XR ---
EXAMINATION TYPE: XR chest 1V portable DATE OF EXAM: 10/08/2021 CLINICAL HISTORY: Difficulty breathing progress study. Postopen cardiac surgery. TECHNIQUE: Single AP portable semiupright view of the chest is obtained. COMPARISON: Chest x-ray from one and 4 days earlier FINDINGS: Interval extubation with removal of endotracheal and orogastric tubes. Stable right internal medicine hospitalist al jugular [place]-Danae catheter. Stable left basilar chest tube. Stable tubes and mediastinal drainage catheters. Overlying sternal wires and mediastinal clips along with left atrial appendage clip are al l redemonstrated. Persistent mild cardiomegaly and mild central vascular congestion. No visualized pneumothorax. Osseou s structures are intact. IMPRESSION: Interval extubation. Mild cardiomegaly with mild central vascular congestion redemonstra lefty. No significant change from one day earlier.
[2021-10-08] MEDS ORDERED: HYDROcodone/APAP 7.5-325MG 1 EACH TAB PO PRN (07:04)
[2021-10-08 07:12] LABS: Glucose,Whole Blood 140 mg/dL (75-99)
--- NOTE | 2021-10-08 07:37 | P.PN ---
Subjective Progress Note Date: 10/08/21 51-year-old male with history of CAD, prior myocardial infarction, and stenting, 2008, as well as hypertension, hyperlipidemia, diabetes, COPD, sleep apnea, anemia, and chronic tobacco use, who had a catheterization at [facility]. It showed multivessel coronary artery disease, and the patient is apparently being evaluated for possible eye past grafting. The patient's currently not receiving any supplemental oxygen. The patient is on saline IV at [facility]. He has smoked for many years. The patient apparently has recently been out of correction, and is currently wearing a tender. 10/06/2021, the patient is being seen for a follow-up. As we are following up this patient, the patient is being worked up for coronary artery bypass surgery as the patient is known to have multivessel coronary disease with triple-vessel involvement. The patient undergone a previous myocardial infarction and previous stenting 5. The patient also has history of hypertension, hyperlipidemia, [id number] diabetes mellitus, chronic stage III kidney disease and obstructive sleep apnea not utilizing CPAP therapy. The patient also has gout, chronic anemia and premature history of coronary artery disease. The patient has been vaccinated and boosted for COVID 19 infections. The patient is currently using incentive spirometer. He is pulling approximately 3000. His free of any chest pain for now. Spirometry was done and the patient was found to have an FEV1 of 2.41 L and the patient had an MCV of 90.4 L per minute. Otherwise, the patient is doing well. No significant complaints for now. His free of any chest pain. His cardiac catheterization with an [facility]. 10/07/2021, the patient is being seen in the intensive care unit. Following coronary artery bypass surgery. The patient undergone four-vessel bypass surgery. At this point in time, the patient is sedated and the patient is currently on propofol running at 50 mcg/kg per minute. The patient was brought in to the ICU on assist control mode of mechanical ventilation at the rate of 12, tidal volume of 550, PEEP of 10 and FiO2 of 60%. The blood gases showed a pH of 7.32 with a pCO2 of 47 and pO2 of 300. Based on that, the FiO2 was dropped down to 60% and the rate was increased up to 20. The chest x-ray was done in the ICU and the patient had adequate expansion of both lungs. ET tube was in good location. [place]-Danae catheter was in a good location. The patient has a left pleural and 2 mediastinal chest tubes. Output from the chest tubes have been in the order of 100 mL from the mediastinal chest tube and 50 mL from the left pleural chest tube. Current pulmonary artery pressures of 49/32. Her net output is at 7.9 with an index of 3.3. The patient is currently on Catapres at 4 mg an hour for blood pressure control. The chest x-ray shows no evidence of any pneumothorax. There is adequate expansion of both lungs bilaterally. The patient has adequate urine output. The patient's hypothermic with a temperature cor of 36.4 and the patient is receiving external warming at this point in time. No other significant events otherwise. The patient is also on nitroglycerin 5 micrograms per minute. On 2021, the patient remains extubated. The patient arrived to the ICU following his surgery as the patient underwent four-vessel bypass surgery. Postop, he was on sedation. Sedation was gradually weaned off. FiO2 was weaned off. Patient was given a spelled his breathing trial and following that the patient was extubated to BiPAP. This morning he is in oxygen by nasal cannula at 5 L. His chest x-ray from this morning showing no acute abnormalities. Obviously the ET tube has been removed. The Alexandria-Danae catheter is in place. The patient has 2 mediastinal chest tubes and 1 pleural chest tube on the left. No evidence of any pneumothorax. No signs of any respiratory distress. Cardiac rhythm remains sinus. The patient is on no pressors. Cardiac output currently is at 7.4 with an index of 3.1. Pulmonary artery pressures of 24/7. Output from the chest tubes have been noted. The total amount of output from the left pleural chest tube is 41 mL over the past 12 hours and mediastinal chest tubes 180 mL over the past 12 hours. The patient also has a NICOL drain in the left upper extremity. The output from the left arm has been 25 mL of serosanguineous drainage. There is also another NICOL in the left lower extremity the output being 35 mL. The patient is currently off the nitroglycerin drip. He is on insulin drip at 5 units an hour. Neurologically intact. Moving 4 extremities without any limitation. Objective - Vital Signs Vital signs: Vital Signs Temp 99.0 F 10/08/21 04:00 Pulse 89 10/08/21 07:00 Resp 4 L 10/08/21 07:00 BP 130/84 10/07/21 06:22 Pulse Ox 95 10/08/21 07:00 Intake & Output 10/07/21 10/08/21 10/08/21 18:59 06:59 18:59 Intake Total 225.151 2982.167 106.239 Output Total 4180 1711 100 Balance -3776.415 -75.833 6.239 Intake: IV 203 1025.5 90.5 ACETAMINOPHEN IV (For NPO 100 ) 1,000 mg In Empty Bag 1 bag @ 400 mls/hr IVPB Q6HR [facility] Rx#:[id number] Nitroglycerin-D5w Pmx 50 16.5 1.5 mg In Dextrose/Water 1 250ml.bag @ 5 MCG/MIN 1.5 mls/hr IV .Q24H [facility] Rx#: [id number] Sodium Chloride 0.9% 1, 100 580 50 000 ml @ 50 mls/hr IV . Q20H [facility] Rx#:[id number] ceFAZolin 2 gm In Sodium 50 Chloride 0.9% 50 ml @ 100 mls/hr IVPB Q8HR [facility] Rx# :[id number] co/ci 180 30 pressure bag 99 9 Intake, IV Titration 200.585 249.667 15.739 Amount ACETAMINOPHEN IV (For NPO 100 100 ) 1,000 mg In Empty Bag 1 bag @ 400 mls/hr IVPB Q6HR [facility] Rx#:[id number] Clevidipine Butyrate 25 2.467 87.934 mg In Empty Bag 1 bag @ 1 MG/HR 2 mls/hr IV .Q24H [facility] Rx#:[id number] Insulin Regular 100 unit 48.917 15.739 In Sodium Chloride 0.9% 100 ml @ Per Protocol IV .Q0M [facility] Rx#:[id number] Nitroglycerin-D5w Pmx 50 3.0 1.5 mg In Dextrose/Water 1 250ml.bag @ 5 MCG/MIN 1.5 mls/hr IV .Q24H [facility] Rx#: [id number] ceFAZolin 2 gm In Sodium 50 Chloride 0.9% 50 ml @ 100 mls/hr IVPB Q8HR [facility] Rx# :[id number] propofoL 1,000 mg In 45.118 11.316 Empty Bag 1 bag @ Titrate IV .Q0M [facility] Rx#: [id number] Oral 360 Output: Chest Tube Drainage 195 366 40 left pleural 55 76 20 ms x2 140 290 20 Drainage 120 Left Arm 50 Left Calf 70 Urine 2185 1225 60 Estimated Blood Loss 1800 Other: Voiding Method Indwelling Catheter Indwelling Catheter ABP, PAP, CO, CI - Last Documented Arterial Blood Pressure 124/61 Pulmonary Artery Pressure 23/5 Cardiac Output 7.4 Cardiac Index 3.1 - Exam No acute distress, extubated to 6 L of oxygen by nasal cannula, awake and alert and following commands and answering questions. HEENT examination is grossly unremarkable. Neck supple. Full range of motion. No adenopathy thyromegaly or neck vein distention. Cardiovascular examination reveals regular rhythm rate. S1-S2 normal. No S3 or S4. No discernible murmur noted. Lungs reveal clear breath sounds. Breath sounds are equal bilaterally. No adventitious lung sounds including wheezes rhonchi or crackles. The patient has equal and symmetrical breath sounds. Sternum stable clean and intact. The p atient has 2 mediastinal and 1 pleural chest tube on the left. Abdomen soft bowel sounds are heard. No masses or tenderness. Extremities are intact. No cyanosis clubbing or edema. He is wearing a tether on his ankle. Examination of the skin revealed no evidence of significant rashes, suspicious appearing nevi or other concerning lesions. Neurologic examination is intact - Labs CBC & Chem 7: 10/08/21 04:30 10/08/21 04:30 Labs: Abnormal Lab Results - Last 24 Hours (Table) 10/06/21 10/07/21 10/07/21 Range/Units 07:55 08:50 11:25 RBC (4.30-5.90) m/uL Hgb (13.0-17.5) gm/dL Hct (39.0-53.0) % Plt Count (150-450) k/uL Neutrophils # (1.3-7.7) k/uL Lymphocytes # (1.0-4.8) k/uL ABG pH (7.35-7.45) ABG pCO2 (35-45) mmHg ABG pO2 >420 H 248 H (83-108) mmHg ABG Total CO2 27 H 27 H (19-24) mmol/L ABG O2 Saturation 100.0 H 99.9 H (94-97) % ABG Hematocrit 29 L 29 L (34.0-46.0) % ABG Potassium 5.0 H 4.7 H (3.4-4.5) mmol/L ABG Ionized Calcium (4.5-5.3) mg/dL ABG Glucose 107 H 120 H (75-99) mg/dL Hemoglobin 9.5 L 9.3 L (13.0-17.5) gm/dL Sodium (137-145) mmol/L Potassium (3.5-5.1) mmol/L Chloride (98-107) mmol/L BUN (9-20) mg/dL Creatinine (0.66-1.25) mg/dL Glucose (74-99) mg/dL POC Glucose (mg/dL) (75-99) mg/dL Calcium (8.4-10.2) mg/dL AST (17-59) U/L Alkaline Phosphatase (38-126) U/L Total Protein (6.3-8.2) g/dL Albumin (3.5-5.0) g/dL Arterial Blood Potassium 5.0 H 4.7 H (3.4-4.5) mmol/L Arterial Blood Glucose 107 H 120 H (75-99) mg/dL Crossmatch See Detail 10/07/21 10/07/21 10/07/21 Range/Units 13:28 14:20 17:01 RBC 2.43 L (4.30-5.90) m/uL Hgb 7.3 L D (13.0-17.5) gm/dL Hct 22.5 L (39.0-53.0) % Plt Count 85 L (150-450) k/uL Neutrophils # (1.3-7.7) k/uL Lymphocytes # 0.5 L (1.0-4.8) k/uL ABG pH (7.35-7.45) ABG pCO2 46 H (35-45) mmHg ABG pO2 414 H 178 H (83-108) mmHg ABG Total CO2 26 H 27 H (19-24) mmol/L ABG O2 Saturation 100.0 H 99.9 H (94-97) % ABG Hematocrit 24 L 25 L (34.0-46.0) % ABG Potassium 5.2 H (3.4-4.5) mmol/L ABG Ionized Calcium 4.2 L 4.3 L (4.5-5.3) mg/dL ABG Glucose 115 H 135 H (75-99) mg/dL Hemoglobin 7.8 L 8.2 L (13.0-17.5) gm/dL Sodium (137-145) mmol/L Potassium (3.5-5.1) mmol/L Chloride (98-107) mmol/L BUN (9-20) mg/dL Creatinine (0.66-1.25) mg/dL Glucose (74-99) mg/dL POC Glucose (mg/dL) (75-99) mg/dL Calcium (8.4-10.2) mg/dL AST (17-59) U/L Alkaline Phosphatase (38-126) U/L Total Protein (6.3-8.2) g/dL Albumin (3.5-5.0) g/dL Arterial Blood Potassium 5.2 H (3.4-4.5) mmol/L Arterial Blood Glucose 115 H 135 H (75-99) mg/dL Crossmatch 10/07/21 10/07/21 10/07/21 Range/Units 17:01 17:03 17:31 RBC (4.30-5.90) m/uL Hgb (13.0-17.5) gm/dL Hct (39.0-53.0) % Plt Count (150-450) k/uL Neutrophils # (1.3-7.7) k/uL Lymphocytes # (1.0-4.8) k/uL ABG pH 7.32 L (7.35-7.45) ABG pCO2 47 H (35-45) mmHg ABG pO2 300 H (83-108) mmHg ABG Total CO2 26 H (19-24) mmol/L ABG O2 Saturation 100.0 H (94-97) % ABG Hematocrit (34.0-46.0) % ABG Potassium (3.4-4.5) mmol/L ABG Ionized Calcium (4.5-5.3) mg/dL ABG Glucose (75-99) mg/dL Hemoglobin (13.0-17.5) gm/dL Sodium (137-145) mmol/L Potassium (3.5-5.1) mmol/L Chloride 111 H (98-107) mmol/L BUN 24 H (9-20) mg/dL Creatinine 1.34 H (0.66-1.25) mg/dL Glucose (74-99) mg/dL POC Glucose (mg/dL) 108 H (75-99) mg/dL Calcium 7.6 L (8.4-10.2) mg/dL AST (17-59) U/L Alkaline Phosphatase 37 L (38-126) U/L Total Protein 4.2 L (6.3-8.2) g/dL Albumin 2.3 L (3.5-5.0) g/dL Arterial Blood Potassium (3.4-4.5) mmol/L Arterial Blood Glucose (75-99) mg/dL Crossmatch 10/07/21 10/07/21 10/07/21 Range/Units 18:11 19:00 19:00 RBC 2.95 L (4.30-5.90) m/uL Hgb 8.9 L D (13.0-17.5) gm/dL Hct 27.0 L (39.0-53.0) % Plt Count 121 L (150-450) k/uL Neutrophils # (1.3-7.7) k/uL Lymphocytes # 0.5 L (1.0-4.8) k/uL ABG pH (7.35-7.45) ABG pCO2 (35-45) mmHg ABG pO2 (83-108) mmHg ABG Total CO2 (19-24) mmol/L ABG O2 Saturation (94-97) % ABG Hematocrit (34.0-46.0) % ABG Potassium (3.4-4.5) mmol/L ABG Ionized Calcium (4.5-5.3) mg/dL ABG Glucose (75-99) mg/dL Hemoglobin (13.0-17.5) gm/dL Sodium (137-145) mmol/L Potassium (3.5-5.1) mmol/L Chloride (98-107) mmol/L BUN (9-20) mg/dL Creatinine (0.66-1.25) mg/dL Glucose (74-99) mg/dL POC Glucose (mg/dL) 129 H 148 H (75-99) mg/dL Calcium (8.4-10.2) mg/dL AST (17-59) U/L Alkaline Phosphatase (38-126) U/L Total Protein (6.3-8.2) g/dL Albumin (3.5-5.0) g/dL Arterial Blood Potassium (3.4-4.5) mmol/L Arterial Blood Glucose (75-99) mg/dL Crossmatch 10/07/21 10/07/21 10/07/21 Range/Units 19:55 21:14 21:25 RBC (4.30-5.90) m/uL Hgb (13.0-17.5) gm/dL Hct (39.0-53.0) % Plt Count (150-450) k/uL Neutrophils # (1.3-7.7) k/uL Lymphocytes # (1.0-4.8) k/uL ABG pH 7.29 L (7.35-7.45) ABG pCO2 49 H (35-45) mmHg ABG pO2 (83-108) mmHg ABG Total CO2 25 H (19-24) mmol/L ABG O2 Saturation 98.2 H (94-97) % ABG Hematocrit (34.0-46.0) % ABG Potassium (3.4-4.5) mmol/L ABG Ionized Calcium (4.5-5.3) mg/dL ABG Glucose (75-99) mg/dL Hemoglobin (13.0-17.5) gm/dL Sodium (137-145) mmol/L Potassium (3.5-5.1) mmol/L Chloride (98-107) mmol/L BUN (9-20) mg/dL Creatinine (0.66-1.25) mg/dL Glucose (74-99) mg/dL POC Glucose (mg/dL) 165 H 170 H (75-99) mg/dL Calcium (8.4-10.2) mg/dL AST (17-59) U/L Alkaline Phosphatase (38-126) U/L Total Protein (6.3-8.2) g/dL Albumin (3.5-5.0) g/dL Arterial Blood Potassium (3.4-4.5) mmol/L Arterial Blood Glucose (75-99) mg/dL Crossmatch 10/07/21 10/07/21 10/07/21 Range/Units 22:05 22:06 23:22 RBC 2.79 L (4.30-5.90) m/uL Hgb 8.2 L (13.0-17.5) gm/dL Hct 25.6 L (39.0-53.0) % Plt Count 119 L (150-450) k/uL Neutrophils # (1.3-7.7) k/uL Lymphocytes # 0.4 L (1.0-4.8) k/uL ABG pH (7.35-7.45) ABG pCO2 (35-45) mmHg ABG pO2 (83-108) mmHg ABG Total CO2 (19-24) mmol/L ABG O2 Saturation (94-97) % ABG Hematocrit (34.0-46.0) % ABG Potassium (3.4-4.5) mmol/L ABG Ionized Calcium (4.5-5.3) mg/dL ABG Glucose (75-99) mg/dL Hemoglobin (13.0-17.5) gm/dL Sodium (137-145) mmol/L Potassium (3.5-5.1) mmol/L Chloride (98-107) mmol/L BUN (9-20) mg/dL Creatinine (0.66-1.25) mg/dL Glucose (74-99) mg/dL POC Glucose (mg/dL) 167 H 158 H (75-99) mg/dL Calcium (8.4-10.2) mg/dL AST (17-59) U/L Alkaline Phosphatase (38-126) U/L Total Protein (6.3-8.2) g/dL Albumin (3.5-5.0) g/dL Arterial Blood Potassium (3.4-4.5) mmol/L Arterial Blood Glucose (75-99) mg/dL Crossmatch 10/08/21 10/08/21 10/08/21 Range/Units 00:14 03:06 04:30 RBC 2.79 L (4.30-5.90) m/uL Hgb 8.2 L (13.0-17.5) gm/dL Hct 25.7 L (39.0-53.0) % Plt Count 141 L (150-450) k/uL Neutrophils # 7.9 H (1.3-7.7) k/uL Lymphocytes # 0.4 L (1.0-4.8) k/uL ABG pH (7.35-7.45) ABG pCO2 (35-45) mmHg ABG pO2 (83-108) mmHg ABG Total CO2 (19-24) mmol/L ABG O2 Saturation (94-97) % ABG Hematocrit (34.0-46.0) % ABG Potassium (3.4-4.5) mmol/L ABG Ionized Calcium (4.5-5.3) mg/dL ABG Glucose (75-99) mg/dL Hemoglobin (13.0-17.5) gm/dL Sodium (137-145) mmol/L Potassium (3.5-5.1) mmol/L Chloride (98-107) mmol/L BUN (9-20) mg/dL Creatinine (0.66-1.25) mg/dL Glucose (74-99) mg/dL POC Glucose (mg/dL) 158 H 137 H (75-99) mg/dL Calcium (8.4-10.2) mg/dL AST (17-59) U/L Alkaline Phosphatase (38-126) U/L Total Protein (6.3-8.2) g/dL Albumin (3.5-5.0) g/dL Arterial Blood Potassium (3.4-4.5) mmol/L Arterial Blood Glucose (75-99) mg/dL Crossmatch 10/08/21 10/08/21 10/08/21 Range/Units 04:30 04:32 06:22 RBC (4.30-5.90) m/uL Hgb (13.0-17.5) gm/dL Hct (39.0-53.0) % Plt Count (150-450) k/uL Neutrophils # (1.3-7.7) k/uL Lymphocytes # (1.0-4.8) k/uL ABG pH (7.35-7.45) ABG pCO2 (35-45) mmHg ABG pO2 (83-108) mmHg ABG Total CO2 (19-24) mmol/L ABG O2 Saturation (94-97) % ABG Hematocrit (34.0-46.0) % ABG Potassium (3.4-4.5) mmol/L ABG Ionized Calcium (4.5-5.3) mg/dL ABG Glucose (75-99) mg/dL Hemoglobin (13.0-17.5) gm/dL Sodium 136 L (137-145) mmol/L Potassium 5.2 H (3.5-5.1) mmol/L Chloride 109 H (98-107) mmol/L BUN 24 H (9-20) mg/dL Creatinine 1.51 H (0.66-1.25) mg/dL Glucose 131 H (74-99) mg/dL POC Glucose (mg/dL) 146 H 150 H (75-99) mg/dL Calcium 8.2 L (8.4-10.2) mg/dL AST 77 H (17-59) U/L Alkaline Phosphatase (38-126) U/L Total Protein 5.1 L (6.3-8.2) g/dL Albumin 2.9 L (3.5-5.0) g/dL Arterial Blood Potassium (3.4-4.5) mmol/L Arterial Blood Glucose (75-99) mg/dL Crossmatch 10/08/21 Range/Units 07:10 RBC (4.30-5.90) m/uL Hgb (13.0-17.5) gm/dL Hct (39.0-53.0) % Plt Count (150-450) k/uL Neutrophils # (1.3-7.7) k/uL Lymphocytes # (1.0-4.8) k/uL ABG pH (7.35-7.45) ABG pCO2 (35-45) mmHg ABG pO2 (83-108) mmHg ABG Total CO2 (19-24) mmol/L ABG O2 Saturation (94-97) % ABG Hematocrit (34.0-46.0) % ABG Potassium (3.4-4.5) mmol/L ABG Ionized Calcium (4.5-5.3) mg/dL ABG Glucose (75-99) mg/dL Hemoglobin (13.0-17.5) gm/dL Sodium (137-145) mmol/L Potassium (3.5-5.1) mmol/L Chloride (98-107) mmol/L BUN (9-20) mg/dL Creatinine (0.66-1.25) mg/dL Glucose (74-99) mg/dL POC Glucose (mg/dL) 140 H (75-99) mg/dL Calcium (8.4-10.2) mg/dL AST (17-59) U/L Alkaline Phosphatase (38-126) U/L Total Protein (6.3-8.2) g/dL Albumin (3.5-5.0) g/dL Arterial Blood Potassium (3.4-4.5) mmol/L Arterial Blood Glucose (75-99) mg/dL Crossmatch Assessment and Plan Plan: 1 Multivessel coronary artery disease, with anticipated bypass grafting, next week. The patient has had previous myocardial infarction and stenting 5 most recently in 2008. The patient is currently being evaluated for coronary artery bypass surgery. The patient is post four-vessel bypass surgery. Currently the patient is postop day #1. The patient is hemodynamically stable. The patient has adequate cardiac output and index. Chest tubes are still in place. The patient has been extubated to 6 L about 2 by nasal cannula. He is off the nitroglycerin drip. 2 post thoracotomy, currently on a mechanical ventilator. Currently on 6 L about 2 by nasal cannula. The chest tubes are all in place. Output has been noted. The patient is hemodynamically stable at this point in time. 3 History of myocardial infarction, 2008. 4 Essential hypertension. 5 Hyperlipidemia. 6 Diabetes mellitus. The patient has a HbA1c of 6.3%, insulin drip is running at 5 units an hour 7 Suspected COPD from chronic tobacco use. The patient has a an FEV1 of 62% of predicted 8 Sleep apnea syndrome. not utilizing CPAP therapy. Body mass index is 21.8 9 History of anemia. 10 chronic stage III kidney disease CREATININE IS ALSO STABLE AND THE PATIENT HAS CHRONIC STAGE III KIDNEY DISEASE. 11 gout 12 active for COVID 19 including booster shot Plan Chest x-ray was noted. Wean off FiO2 as tolerated and continue using incentive spirometer Monitor the output from the chest tubes. Monitor hemodynamic parameters include a cardiac output and index. Start the patient on a combination of aspirin and Plavix and beta blockers Gradually advance diet as tolerated Keep insulin drip for now at 5 units an hour We will is stable at 8.2 We'll continue to follow.
--- NOTE | 2021-10-08 07:40 | P.PN ---
Subjective Progress Note Date: 10/08/21 Principal diagnosis: Triple-vessel diffuse coronary artery disease, unstable angina, preserved left ventricular function. Previous medical history of coronary artery disease with previous myocardial infarction and previous stenting 5, hypertension, hyperlipidemia, [id number] diabetes, obesity, chronic kidney disease stage III, obstructive sleep apnea currently not using CPAP, anemia, gout, GERD, current light tobacco dependence, family history of premature coronary artery disease with both parents diagnosed before the age of 60, vaccinated and boosted against Covid POD #1 quadruple coronary artery bypass grafting using the left internal mammary artery to the left anterior descending artery, left radial artery from the aorta to the ramus intermedius artery, reverse saphenous vein graft from the aorta to the second obtuse marginal artery, reverse saphenous vein graft from the aorta to the early arising posterior descending artery, exclusion of the left atrial appendage using a 45 mm AtriClip, sternal plating using the cranium system, graft flow measurements using the Medistim system, endoscopic harvesting of the left radial artery, endoscopic harvesting of the left greater saphenous vein, intraoperative transesophageal echocardiogram and epi-aortic scanning Postoperative acute blood loss anemia, expected given hemodilution, cardiopulmonary bypass pump, and preoperative anemia The patient was seen and examined this morning sitting up in a recliner in the intensive care unit in no acute distress. He was successfully extubated last night at 21:45. Does complain of post surgical chest pain, denies shortness of breath. He did have some nausea and vomiting last night although denies any currently. Remains in sinus rhythm, hemodynamically stable just recently off Cleviprex for blood pressure control. Actively attempting incentive spirometry use. Urine output has remained excellent all night. Right internal jugular [place], right radial arterial line, mediastinal/left pleural chest tubes all remain. No other new concerns. Objective - Vital Signs Vital signs: Vital Signs Temp 99.0 F 10/08/21 04:00 Pulse 89 10/08/21 07:00 Resp 4 L 10/08/21 07:00 BP 130/84 10/07/21 06:22 Pulse Ox 95 10/08/21 07:00 Intake & Output 10/07/21 10/08/21 10/08/21 18:59 06:59 18:59 Intake Total 639.328 9777.167 90.5 Output Total 4180 1711 100 Balance -3776.415 -75.833 -9.5 Intake: IV 203 1025.5 90.5 ACETAMINOPHEN IV (For NPO 100 ) 1,000 mg In Empty Bag 1 bag @ 400 mls/hr IVPB Q6HR NAYELY Rx#:[id number] Nitroglycerin-D5w Pmx 50 16.5 1.5 mg In Dextrose/Water 1 250ml.bag @ 5 MCG/MIN 1.5 mls/hr IV .Q24H NAYELY Rx#: [id number] Sodium Chloride 0.9% 1, 100 580 50 000 ml @ 50 mls/hr IV . Q20H NAYELY Rx#:[id number] ceFAZolin 2 gm In Sodium 50 Chloride 0.9% 50 ml @ 100 mls/hr IVPB Q8HR NAYELY Rx# :[id number] co/ci 180 30 pressure bag 99 9 Intake, IV Titration 200.585 249.667 Amount ACETAMINOPHEN IV (For NPO 100 100 ) 1,000 mg In Empty Bag 1 bag @ 400 mls/hr IVPB Q6HR NAYELY Rx#:[id number] Clevidipine Butyrate 25 2.467 87.934 mg In Empty Bag 1 bag @ 1 MG/HR 2 mls/hr IV .Q24H NAYELY Rx#:[id number] Insulin Regular 100 unit 48.917 In Sodium Chloride 0.9% 100 ml @ Per Protocol IV .Q0M NAYELY Rx#:[id number] Nitroglycerin-D5w Pmx 50 3.0 1.5 mg In Dextrose/Water 1 250ml.bag @ 5 MCG/MIN 1.5 mls/hr IV .Q24H NAYELY Rx#: [id number] ceFAZolin 2 gm In Sodium 50 Chloride 0.9% 50 ml @ 100 mls/hr IVPB Q8HR NAYELY Rx# :[id number] propofoL 1,000 mg In 45.118 11.316 Empty Bag 1 bag @ Titrate IV .Q0M NAYELY Rx#: [id number] Oral 360 Output: Chest Tube Drainage 195 366 40 left pleural 55 76 20 ms x2 140 290 20 Drainage 120 Left Arm 50 Left Calf 70 Urine 2185 1225 60 Estimated Blood Loss 1800 Other: Voiding Method Indwelling Catheter Indwelling Catheter ABP, PAP, CO, CI - Last Documented Arterial Blood Pressure 124/61 Pulmonary Artery Pressure 23/5 Cardiac Output 7.4 Cardiac Index 3.1 - Exam CONSTITUTIONAL: Appears comfortable, cooperative, no acute distress RESPIRATORY: Lungs sounds diminished bilaterally. Respirations even, nonlabored. Currently on 6 L high flow nasal cannula with oxygen saturation 95%. Able to achieve 750 mL on incentive spirometry. Strong cough. CARDIOVASCULAR: S1, S2 present. Regular rate and rhythm, sinus rhythm on telemetry. Sternum stable. Palpable peripheral pulses bilaterally. Generalized edema present. No calf pain or tenderness noted. Heart hugger in place with patient demonstrating appropriate use. Antiembolism stockings, SCDs present. GASTROINTESTINAL: Abdomen soft, nontender, nondistended. Active bowel sounds present 4 quadrants. Tolerating clear liquids. GENITOURINARY: Martin present draining clear, yellow urine. Output overnight 100-150 mL per hour INTEGUMENTARY: Skin is warm and dry with evidence of good perfusion. Anterior chest incision well approximated and covered with dry intact dressing. Left lower extremity EVH site well approximated without redness, minimal drainage in NICOL. Left radial artery harvest site well approximated without redness, NICOL drain present with minimal drainage, left hand is warm and pink NEUROLOGIC: Cranial nerves II through XII intact MUSKULOSKELETAL: Able to move all extremities, strength equal bilaterally PSYCHIATRIC: Alert and oriented to person place and time, appropriate affect, intact judgment and insight INVASIVE LINES AND TUBES: Mediastinal/left pleural chest tubes present and connected to wall suction, no air leaks present. Mediastinal tube with 150 mL serosanguineous drainage overnight, 450 mL since surgery. Left pleural chest tube with 36 mL serosanguineous drainage overnight, 150 mL since surgery. A/V epicardial pacemaker wires present, connected to generator, VVI mode with backup rate 54 bpm. Right internal jugular [place], right radial arterial line present. Last CO/CI 7.4/3.1, PA 26/5, CVP 1. - Labs CBC & Chem 7: 10/08/21 04:30 10/08/21 04:30 Labs: Abnormal Lab Results - Last 24 Hours (Table) 10/06/21 10/07/21 10/07/21 Range/Units 07:55 08:50 11:25 RBC (4.30-5.90) m/uL Hgb (13.0-17.5) gm/dL Hct (39.0-53.0) % Plt Count (150-450) k/uL Neutrophils # (1.3-7.7) k/uL Lymphocytes # (1.0-4.8) k/uL ABG pH (7.35-7.45) ABG pCO2 (35-45) mmHg ABG pO2 >420 H 248 H (83-108) mmHg ABG Total CO2 27 H 27 H (19-24) mmol/L ABG O2 Saturation 100.0 H 99.9 H (94-97) % ABG Hematocrit 29 L 29 L (34.0-46.0) % ABG Potassium 5.0 H 4.7 H (3.4-4.5) mmol/L ABG Ionized Calcium (4.5-5.3) mg/dL ABG Glucose 107 H 120 H (75-99) mg/dL Hemoglobin 9.5 L 9.3 L (13.0-17.5) gm/dL Sodium (137-145) mmol/L Potassium (3.5-5.1) mmol/L Chloride (98-107) mmol/L BUN (9-20) mg/dL Creatinine (0.66-1.25) mg/dL Glucose (74-99) mg/dL POC Glucose (mg/dL) (75-99) mg/dL Calcium (8.4-10.2) mg/dL AST (17-59) U/L Alkaline Phosphatase (38-126) U/L Total Protein (6.3-8.2) g/dL Albumin (3.5-5.0) g/dL Arterial Blood Potassium 5.0 H 4.7 H (3.4-4.5) mmol/L Arterial Blood Glucose 107 H 120 H (75-99) mg/dL Crossmatch See Detail 10/07/21 10/07/21 10/07/21 Range/Units 13:28 14:20 17:01 RBC 2.43 L (4.30-5.90) m/uL Hgb 7.3 L D (13.0-17.5) gm/dL Hct 22.5 L (39.0-53.0) % Plt Count 85 L (150-450) k/uL Neutrophils # (1.3-7.7) k/uL Lymphocytes # 0.5 L (1.0-4.8) k/uL ABG pH (7.35-7.45) ABG pCO2 46 H (35-45) mmHg ABG pO2 414 H 178 H (83-108) mmHg ABG Total CO2 26 H 27 H (19-24) mmol/L ABG O2 Saturation 100.0 H 99.9 H (94-97) % ABG Hematocrit 24 L 25 L (34.0-46.0) % ABG Potassium 5.2 H (3.4-4.5) mmol/L ABG Ionized Calcium 4.2 L 4.3 L (4.5-5.3) mg/dL ABG Glucose 115 H 135 H (75-99) mg/dL Hemoglobin 7.8 L 8.2 L (13.0-17.5) gm/dL Sodium (137-145) mmol/L Potassium (3.5-5.1) mmol/L Chloride (98-107) mmol/L BUN (9-20) mg/dL Creatinine (0.66-1.25) mg/dL Glucose (74-99) mg/dL POC Glucose (mg/dL) (75-99) mg/dL Calcium (8.4-10.2) mg/dL AST (17-59) U/L Alkaline Phosphatase (38-126) U/L Total Protein (6.3-8.2) g/dL Albumin (3.5-5.0) g/dL Arterial Blood Potassium 5.2 H (3.4-4.5) mmol/L Arterial Blood Glucose 115 H 135 H (75-99) mg/dL Crossmatch 10/07/21 10/07/21 10/07/21 Range/Units 17:01 17:03 17:31 RBC (4.30-5.90) m/uL Hgb (13.0-17.5) gm/dL Hct (39.0-53.0) % Plt Count (150-450) k/uL Neutrophils # (1.3-7.7) k/uL Lymphocytes # (1.0-4.8) k/uL ABG pH 7.32 L (7.35-7.45) ABG pCO2 47 H (35-45) mmHg ABG pO2 300 H (83-108) mmHg ABG Total CO2 26 H (19-24) mmol/L ABG O2 Saturation 100.0 H (94-97) % ABG Hematocrit (34.0-46.0) % ABG Potassium (3.4-4.5) mmol/L ABG Ionized Calcium (4.5-5.3) mg/dL ABG Glucose (75-99) mg/dL Hemoglobin (13.0-17.5) gm/dL Sodium (137-145) mmol/L Potassium (3.5-5.1) mmol/L Chloride 111 H (98-107) mmol/L BUN 24 H (9-20) mg/dL Creatinine 1.34 H (0.66-1.25) mg/dL Glucose (74-99) mg/dL POC Glucose (mg/dL) 108 H (75-99) mg/dL Calcium 7.6 L (8.4-10.2) mg/dL AST (17-59) U/L Alkaline Phosphatase 37 L (38-126) U/L Total Protein 4.2 L (6.3-8.2) g/dL Albumin 2.3 L (3.5-5.0) g/dL Arterial Blood Potassium (3.4-4.5) mmol/L Arterial Blood Glucose (75-99) mg/dL Crossmatch 10/07/21 10/07/21 10/07/21 Range/Units 18:11 19:00 19:00 RBC 2.95 L (4.30-5.90) m/uL Hgb 8.9 L D (13.0-17.5) gm/dL Hct 27.0 L (39.0-53.0) % Plt Count 121 L (150-450) k/uL Neutrophils # (1.3-7.7) k/uL Lymphocytes # 0.5 L (1.0-4.8) k/uL ABG pH (7.35-7.45) ABG pCO2 (35-45) mmHg ABG pO2 (83-108) mmHg ABG Total CO2 (19-24) mmol/L ABG O2 Saturation (94-97) % ABG Hematocrit (34.0-46.0) % ABG Potassium (3.4-4.5) mmol/L ABG Ionized Calcium (4.5-5.3) mg/dL ABG Glucose (75-99) mg/dL Hemoglobin (13.0-17.5) gm/dL Sodium (137-145) mmol/L Potassium (3.5-5.1) mmol/L Chloride (98-107) mmol/L BUN (9-20) mg/dL Creatinine (0.66-1.25) mg/dL Glucose (74-99) mg/dL POC Glucose (mg/dL) 129 H 148 H (75-99) mg/dL Calcium (8.4-10.2) mg/dL AST (17-59) U/L Alkaline Phosphatase (38-126) U/L Total Protein (6.3-8.2) g/dL Albumin (3.5-5.0) g/dL Arterial Blood Potassium (3.4-4.5) mmol/L Arterial Blood Glucose (75-99) mg/dL Crossmatch 10/07/21 10/07/21 10/07/21 Range/Units 19:55 21:14 21:25 RBC (4.30-5.90) m/uL Hgb (13.0-17.5) gm/dL Hct (39.0-53.0) % Plt Count (150-450) k/uL Neutrophils # (1.3-7.7) k/uL Lymphocytes # (1.0-4.8) k/uL ABG pH 7.29 L (7.35-7.45) ABG pCO2 49 H (35-45) mmHg ABG pO2 (83-108) mmHg ABG Total CO2 25 H (19-24) mmol/L ABG O2 Saturation 98.2 H (94-97) % ABG Hematocrit (34.0-46.0) % ABG Potassium (3.4-4.5) mmol/L ABG Ionized Calcium (4.5-5.3) mg/dL ABG Glucose (75-99) mg/dL Hemoglobin (13.0-17.5) gm/dL Sodium (137-145) mmol/L Potassium (3.5-5.1) mmol/L Chloride (98-107) mmol/L BUN (9-20) mg/dL Creatinine (0.66-1.25) mg/dL Glucose (74-99) mg/dL POC Glucose (mg/dL) 165 H 170 H (75-99) mg/dL Calcium (8.4-10.2) mg/dL AST (17-59) U/L Alkaline Phosphatase (38-126) U/L Total Protein (6.3-8.2) g/dL Albumin (3.5-5.0) g/dL Arterial Blood Potassium (3.4-4.5) mmol/L Arterial Blood Glucose (75-99) mg/dL Crossmatch 10/07/21 10/07/21 10/07/21 Range/Units 22:05 22:06 23:22 RBC 2.79 L (4.30-5.90) m/uL Hgb 8.2 L (13.0-17.5) gm/dL Hct 25.6 L (39.0-53.0) % Plt Count 119 L (150-450) k/uL Neutrophils # (1.3-7.7) k/uL Lymphocytes # 0.4 L (1.0-4.8) k/uL ABG pH (7.35-7.45) ABG pCO2 (35-45) mmHg ABG pO2 (83-108) mmHg ABG Total CO2 (19-24) mmol/L ABG O2 Saturation (94-97) % ABG Hematocrit (34.0-46.0) % ABG Potassium (3.4-4.5) mmol/L ABG Ionized Calcium (4.5-5.3) mg/dL ABG Glucose (75-99) mg/dL Hemoglobin (13.0-17.5) gm/dL Sodium (137-145) mmol/L Potassium (3.5-5.1) mmol/L Chloride (98-107) mmol/L BUN (9-20) mg/dL Creatinine (0.66-1.25) mg/dL Glucose (74-99) mg/dL POC Glucose (mg/dL) 167 H 158 H (75-99) mg/dL Calcium (8.4-10.2) mg/dL AST (17-59) U/L Alkaline Phosphatase (38-126) U/L Total Protein (6.3-8.2) g/dL Albumin (3.5-5.0) g/dL Arterial Blood Potassium (3.4-4.5) mmol/L Arterial Blood Glucose (75-99) mg/dL Crossmatch 01/12/22 01/12/22 01/12/22 Range/Units 00:14 03:06 04:30 RBC 2.79 L (4.30-5.90) m/uL Hgb 8.2 L (13.0-17.5) gm/dL Hct 25.7 L (39.0-53.0) % Plt Count 141 L (150-450) k/uL Neutrophils # 7.9 H (1.3-7.7) k/uL Lymphocytes # 0.4 L (1.0-4.8) k/uL ABG pH (7.35-7.45) ABG pCO2 (35-45) mmHg ABG pO2 (83-108) mmHg ABG Total CO2 (19-24) mmol/L ABG O2 Saturation (94-97) % ABG Hematocrit (34.0-46.0) % ABG Potassium (3.4-4.5) mmol/L ABG Ionized Calcium (4.5-5.3) mg/dL ABG Glucose (75-99) mg/dL Hemoglobin (13.0-17.5) gm/dL Sodium (137-145) mmol/L Potassium (3.5-5.1) mmol/L Chloride (98-107) mmol/L BUN (9-20) mg/dL Creatinine (0.66-1.25) mg/dL Glucose (74-99) mg/dL POC Glucose (mg/dL) 158 H 137 H (75-99) mg/dL Calcium (8.4-10.2) mg/dL AST (17-59) U/L Alkaline Phosphatase (38-126) U/L Total Protein (6.3-8.2) g/dL Albumin (3.5-5.0) g/dL Arterial Blood Potassium (3.4-4.5) mmol/L Arterial Blood Glucose (75-99) mg/dL Crossmatch 10/08/21 10/08/21 10/08/21 Range/Units 04:30 04:32 06:22 RBC (4.30-5.90) m/uL Hgb (13.0-17.5) gm/dL Hct (39.0-53.0) % Plt Count (150-450) k/uL Neutrophils # (1.3-7.7) k/uL Lymphocytes # (1.0-4.8) k/uL ABG pH (7.35-7.45) ABG pCO2 (35-45) mmHg ABG pO2 (83-108) mmHg ABG Total CO2 (19-24) mmol/L ABG O2 Saturation (94-97) % ABG Hematocrit (34.0-46.0) % ABG Potassium (3.4-4.5) mmol/L ABG Ionized Calcium (4.5-5.3) mg/dL ABG Glucose (75-99) mg/dL Hemoglobin (13.0-17.5) gm/dL Sodium 136 L (137-145) mmol/L Potassium 5.2 H (3.5-5.1) mmol/L Chloride 109 H (98-107) mmol/L BUN 24 H (9-20) mg/dL Creatinine 1.51 H (0.66-1.25) mg/dL Glucose 131 H (74-99) mg/dL POC Glucose (mg/dL) 146 H 150 H (75-99) mg/dL Calcium 8.2 L (8.4-10.2) mg/dL AST 77 H (17-59) U/L Alkaline Phosphatase (38-126) U/L Total Protein 5.1 L (6.3-8.2) g/dL Albumin 2.9 L (3.5-5.0) g/dL Arterial Blood Potassium (3.4-4.5) mmol/L Arterial Blood Glucose (75-99) mg/dL Crossmatch 10/08/21 Range/Units 07:10 RBC (4.30-5.90) m/uL Hgb (13.0-17.5) gm/dL Hct (39.0-53.0) % Plt Count (150-450) k/uL Neutrophils # (1.3-7.7) k/uL Lymphocytes # (1.0-4.8) k/uL ABG pH (7.35-7.45) ABG pCO2 (35-45) mmHg ABG pO2 (83-108) mmHg ABG Total CO2 (19-24) mmol/L ABG O2 Saturation (94-97) % ABG Hematocrit (34.0-46.0) % ABG Potassium (3.4-4.5) mmol/L ABG Ionized Calcium (4.5-5.3) mg/dL ABG Glucose (75-99) mg/dL Hemoglobin (13.0-17.5) gm/dL Sodium (137-145) mmol/L Potassium (3.5-5.1) mmol/L Chloride (98-107) mmol/L BUN (9-20) mg/dL Creatinine (0.66-1.25) mg/dL Glucose (74-99) mg/dL POC Glucose (mg/dL) 140 H (75-99) mg/dL Calcium (8.4-10.2) mg/dL AST (17-59) U/L Alkaline Phosphatase (38-126) U/L Total Protein (6.3-8.2) g/dL Albumin (3.5-5.0) g/dL Arterial Blood Potassium (3.4-4.5) mmol/L Arterial Blood Glucose (75-99) mg/dL Crossmatch Assessment and Plan Assessment: 1. Triple-vessel diffuse coronary artery disease with previous myocardial infarction and previous stenting 5, most recently 2008, status post four-vessel CABG 2. Preserved left ventricular function 3. Hypertension 4. Hyperlipidemia, treated, cholesterol 138, LDL 59.2, triglycerides 260 5. Nqq-eqyvfvg-etncphfci diabetes, hemoglobin A1c 6.3% 6. Obesity 7. Chronic kidney disease stage III 8. Obstructive sleep apnea currently not using CPAP 9. Anemia 10. Gout 11. GERD 12. Current light tobacco dependence, mild COPD with FEV1 62% of predicted 13. Family history of premature coronary artery disease with both parents diagnosed before the age of 60 14. Vaccinated and boosted against Covid 15. Postoperative acute blood loss anemia, expected Plan: 1. Continue aspirin, statin, Plavix, beta brandy therapy. Will increase beta brandy therapy as tolerated. Discontinue IV nitro 2. Will initiate oral calcium channel brandy for radial artery spasm prophylaxis 3. Wean O2 as tolerated. Encourage incentive spirometry use. Bronchodilators, BiPAP per pulmonology 4. Increase activity, ambulate as tolerated. PT/OT/cardiac rehab consulted 5. Will monitor daily labs and x-rays. Electrolyte replacement per protocol. Avoid nephrotoxins. No lasix today 6. GI/DVT prophylaxis 7. Insulin management per primary care service 8. Discontinue [place]. Connect Cordis to continuous CVP monitoring 9. Pain control with current medication regimen, [place] dose increased for better pain control. Avoid Toradol secondary to kidney disease 10. Will discontinue NICOL drains 11. Continue mediastinal and left pleural chest tube for another 24 hours 12. Continue Martin catheter for another 24 hours for strict accurate intake and output 13. Encourage smoking cessation 14. More recommendations to follow based on patient's progress Time with Patient: Greater than 30
[2021-10-08] MEDS: HYDROcodone/APAP 7.5-325MG 1 EACH TAB PO PRN ×4 (08:12→20:05)
[2021-10-08] MEDS: CLOPIDOGREL 75 MG TAB PO SCH (08:14)
[2021-10-08] MEDS: FERROUS SULFATE 325 MG TAB PO SCH ×2 (08:14→17:06)
[2021-10-08] MEDS: ASPIRIN 325 MG TAB PO SCH (08:14)
[2021-10-08] MEDS: ASCORBIC ACID 500 MG TAB PO SCH ×2 (08:14→17:06)
[2021-10-08] MEDS: amLODIPine 5 MG TAB PO SCH (08:14)
[2021-10-08] MEDS: MUPIROCIN 2% OINT 22 GM TUBE NASAL SCH ×2 (08:15→20:08)
[2021-10-08 08:26] LABS: Glucose,Whole Blood 162 mg/dL (75-99)
[2021-10-08] MEDS: IPRATROPIUM-ALBUTEROL 3 ML NEB INHALATION SCH ×4 (08:57→19:43)
[2021-10-08] MEDS ORDERED: PANTOPRAZOLE 40 MG/10 ML VIAL IVP SCH (09:00)
[2021-10-08] MEDS ORDERED: bisacodyL 10 MG SUPP RECTAL PRN (09:00)
[2021-10-08] MEDS ORDERED: METOPROLOL TARTRATE 25 MG TAB PO SCH (09:00)
[2021-10-08] MEDS ORDERED: METOPROLOL TARTRATE 12.5 MG TAB PO SCH (09:00)
[2021-10-08] MEDS ORDERED: MAGNESIUM HYDROXIDE 2,400 MG/10 ML CUP PO PRN (09:00)
--- NOTE | 2021-10-08 09:38 | P.ARTDOP ---
Arterial Doppler Bilateral radial artery testing: Date of study: 10/04/2021 Reason for study: Preop CABG Findings: There are no significant right to left or brachial gradients. On digital plethysmography with radial artery compression there are no significant pressure changes. On imaging the right is 3.3 x 3.2 mm proximally, 3.3 x 3.2 mm mid, and 3.6 x 3 mm distally. The left is 2.6 x 2.2 mm proximally, 2.6 x 2.1 mm mid, and 2.6 x 2.1 mm distally. Impression: Both radial arteries meet criteria for use as conduit.
[2021-10-08 09:53] LABS: Glucose,Whole Blood 159 mg/dL (75-99)
--- NOTE | 2021-10-08 10:03 | P.VSCSTY ---
Greater Saphenous Vein Mapping This is bilateral lower extremity greater saphenous vein mapping. Date of service: 10/04/2021 Vein quality and ultrasound appearance: Significant bilateral branching. No obvious wall changes or intraluminal thrombus. Vein size groin right : 9.2 x 8.6 groin left: 9.4 x 8.3 High thigh right: 6.8 x 5.6 high thigh left: 7.1 x 6.3 Mid thigh right: 6.4 x 6.0 mid thigh left: 4.4 x 4.3 Above-knee right: 7.1 x 5.8 above- knee left: 4.7 x 3.7 Below knee right: 4.5 x 3.0 below-knee left: 5.1 x 3.8 Mid calf right: 3.1 x 2.6 mid calf left: 3.7 x 2.9 Ankle right: 3.2 x 2.8 ankle left: 3.6 x 3.0 Impression: Usable bilateral greater saphenous vein..
[2021-10-08 11:04] LABS: Glucose,Whole Blood 142 mg/dL (75-99)
[2021-10-08] MEDS: INSULIN REGULAR 100 UNIT in SODIUM CHLORIDE 0.9% 100 ML IV SCH (11:05)
--- NOTE | 2021-10-08 11:51 | P.PN ---
Subjective Patient underwent coronary artery bypass grafting for triple vessel CAD with unstable angina and preserved LV systolic function He is extubated sitting in a chair He is doing reasonably well Vitals are stable breath sounds are reduced bilaterally Heart sounds S1 and S2 are soft conductive sounds audible No lower extremity edema No JVD Pulse rate in the 80s, respirations 16, blood pressure 145/66 and 120/64 mmHg Hemoglobin 8.2 Potassium 5.2, sodium 136 BUN 24 creatinine 1.5 Impression Triple vessel CAD prior PR prior stenting Status post four-vessel coronary artery bypass grafting Hypertension Dyslipidemia Type 2 diabetes hemoglobin A1c 6.3 Chronic kidney disease Current tobacco use Plan Continue beta blockers statins blood pressure platelet therapy Continue postoperative ICU care following CABG We will follow Objective - Vital Signs Vital signs: Vital Signs Temp 98 F 10/08/21 08:00 Pulse 81 10/08/21 11:00 Resp 16 10/08/21 11:00 BP 130/84 10/07/21 06:22 Pulse Ox 95 10/08/21 11:00 Intake & Output 10/07/21 10/08/21 10/08/21 18:59 06:59 18:59 Intake Total 874.490 5407.167 555.872 Output Total 4180 1711 400 Balance -3776.415 -75.833 155.872 Weight 128.7 kg Intake: IV 203 1025.5 217.5 ACETAMINOPHEN IV (For NPO 100 ) 1,000 mg In Empty Bag 1 bag @ 400 mls/hr IVPB Q6HR [facility] Rx#:[id number] Nitroglycerin-D5w Pmx 50 16.5 1.5 mg In Dextrose/Water 1 250ml.bag @ 5 MCG/MIN 1.5 mls/hr IV .Q24H [facility]AY[facility] Rx#: [id number] Sodium Chloride 0.9% 1, 100 580 100 000 ml @ 50 mls/hr IV . Q20H ANYELY Rx#:[id number] ceFAZolin 2 gm In Sodium 50 50 Chloride 0.9% 50 ml @ 100 mls/hr IVPB Q8HR [facility] Rx# :[id number] co/ci 180 30 pressure bag 99 36 Intake, IV Titration 200.585 249.667 98.372 Amount ACETAMINOPHEN IV (For NPO 100 100 ) 1,000 mg In Empty Bag 1 bag @ 400 mls/hr IVPB Q6HR [facility]AYELY Rx#:[id number] Clevidipine Butyrate 25 2.467 87.934 mg In Empty Bag 1 bag @ 1 MG/HR 2 mls/hr IV .Q24H [facility] Rx#:[id number] Insulin Regular 100 unit 48.917 38.372 In Sodium Chloride 0.9% 100 ml @ Per Protocol IV .Q0M [facility]AY[facility] Rx#:[id number] Nitroglycerin-D5w Pmx 50 3.0 1.5 mg In Dextrose/Water 1 250ml.bag @ 5 MCG/MIN 1.5 mls/hr IV .Q24H [facility] Rx#: [id number] Sodium Chloride 0.9% 1, 60 000 ml @ 20 mls/hr IV . Q24H [facility] Rx#:[id number] ceFAZolin 2 gm In Sodium 50 Chloride 0.9% 50 ml @ 100 mls/hr IVPB Q8HR [facility] Rx# :[id number] propofoL 1,000 mg In 45.118 11.316 Empty Bag 1 bag @ Titrate IV .Q0M NAYELY Rx#: [id number] Oral 360 240 Output: Chest Tube Drainage 195 366 170 left pleural 55 76 60 ms x2 140 290 110 Drainage 120 Left Arm 50 Left Calf 70 Urine 2185 1225 230 Estimated Blood Loss 1800 Other: Voiding Method Indwelling Catheter Indwelling Catheter Indwelling Catheter ABP, PAP, CO, CI - Last Documented Arterial Blood Pressure 145/69 Pulmonary Artery Pressure 23/11 Cardiac Output 7.4 Cardiac Index 3.1 - Labs CBC & Chem 7: 10/08/21 04:30 10/08/21 04:30 Labs: Abnormal Lab Results - Last 24 Hours (Table) 10/06/21 10/07/21 10/07/21 Range/Units 07:55 08:50 11:25 RBC (4.30-5.90) m/uL Hgb (13.0-17.5) gm/dL Hct (39.0-53.0) % Plt Count (150-450) k/uL Neutrophils # (1.3-7.7) k/uL Lymphocytes # (1.0-4.8) k/uL ABG pH (7.35-7.45) ABG pCO2 (35-45) mmHg ABG pO2 >420 H 248 H (83-108) mmHg ABG Total CO2 27 H 27 H (19-24) mmol/L ABG O2 Saturation 100.0 H 99.9 H (94-97) % ABG Hematocrit 29 L 29 L (34.0-46.0) % ABG Potassium 5.0 H 4.7 H (3.4-4.5) mmol/L ABG Ionized Calcium (4.5-5.3) mg/dL ABG Glucose 107 H 120 H (75-99) mg/dL Hemoglobin 9.5 L 9.3 L (13.0-17.5) gm/dL Sodium (137-145) mmol/L Potassium (3.5-5.1) mmol/L Chloride (98-107) mmol/L BUN (9-20) mg/dL Creatinine (0.66-1.25) mg/dL Glucose (74-99) mg/dL POC Glucose (mg/dL) (75-99) mg/dL Calcium (8.4-10.2) mg/dL AST (17-59) U/L Alkaline Phosphatase (38-126) U/L Total Protein (6.3-8.2) g/dL Albumin (3.5-5.0) g/dL Arterial Blood Potassium 5.0 H 4.7 H (3.4-4.5) mmol/L Arterial Blood Glucose 107 H 120 H (75-99) mg/dL Crossmatch See Detail 10/07/21 10/07/21 10/07/21 Range/Units 13:28 14:20 17:01 RBC 2.43 L (4.30-5.90) m/uL Hgb 7.3 L D (13.0-17.5) gm/dL Hct 22.5 L (39.0-53.0) % Plt Count 85 L (150-450) k/uL Neutrophils # (1.3-7.7) k/uL Lymphocytes # 0.5 L (1.0-4.8) k/uL ABG pH (7.35-7.45) ABG pCO2 46 H (35-45) mmHg ABG pO2 414 H 178 H (83-108) mmHg ABG Total CO2 26 H 27 H (19-24) mmol/L ABG O2 Saturation 100.0 H 99.9 H (94-97) % ABG Hematocrit 24 L 25 L (34.0-46.0) % ABG Potassium 5.2 H (3.4-4.5) mmol/L ABG Ionized Calcium 4.2 L 4.3 L (4.5-5.3) mg/dL ABG Glucose 115 H 135 H (75-99) mg/dL Hemoglobin 7.8 L 8.2 L (13.0-17.5) gm/dL Sodium (137-145) mmol/L Potassium (3.5-5.1) mmol/L Chloride (98-107) mmol/L BUN (9-20) mg/dL Creatinine (0.66-1.25) mg/dL Glucose (74-99) mg/dL POC Glucose (mg/dL) (75-99) mg/dL Calcium (8.4-10.2) mg/dL AST (17-59) U/L Alkaline Phosphatase (38-126) U/L Total Protein (6.3-8.2) g/dL Albumin (3.5-5.0) g/dL Arterial Blood Potassium 5.2 H (3.4-4.5) mmol/L Arterial Blood Glucose 115 H 135 H (75-99) mg/dL Crossmatch 10/07/21 10/07/21 10/07/21 Range/Units 17:01 17:03 17:31 RBC (4.30-5.90) m/uL Hgb (13.0-17.5) gm/dL Hct (39.0-53.0) % Plt Count (150-450) k/uL Neutrophils # (1.3-7.7) k/uL Lymphocytes # (1.0-4.8) k/uL ABG pH 7.32 L (7.35-7.45) ABG pCO2 47 H (35-45) mmHg ABG pO2 300 H (83-108) mmHg ABG Total CO2 26 H (19-24) mmol/L ABG O2 Saturation 100.0 H (94-97) % ABG Hematocrit (34.0-46.0) % ABG Potassium (3.4-4.5) mmol/L ABG Ionized Calcium (4.5-5.3) mg/dL ABG Glucose (75-99) mg/dL Hemoglobin (13.0-17.5) gm/dL Sodium (137-145) mmol/L Potassium (3.5-5.1) mmol/L Chloride 111 H (98-107) mmol/L BUN 24 H (9-20) mg/dL Creatinine 1.34 H (0.66-1.25) mg/dL Glucose (74-99) mg/dL POC Glucose (mg/dL) 108 H (75-99) mg/dL Calcium 7.6 L (8.4-10.2) mg/dL AST (17-59) U/L Alkaline Phosphatase 37 L (38-126) U/L Total Protein 4.2 L (6.3-8.2) g/dL Albumin 2.3 L (3.5-5.0) g/dL Arterial Blood Potassium (3.4-4.5) mmol/L Arterial Blood Glucose (75-99) mg/dL Crossmatch 10/07/21 10/07/21 10/07/21 Range/Units 18:11 19:00 19:00 RBC 2.95 L (4.30-5.90) m/uL Hgb 8.9 L D (13.0-17.5) gm/dL Hct 27.0 L (39.0-53.0) % Plt Count 121 L (150-450) k/uL Neutrophils # (1.3-7.7) k/uL Lymphocytes # 0.5 L (1.0-4.8) k/uL ABG pH (7.35-7.45) ABG pCO2 (35-45) mmHg ABG pO2 (83-108) mmHg ABG Total CO2 (19-24) mmol/L ABG O2 Saturation (94-97) % ABG Hematocrit (34.0-46.0) % ABG Potassium (3.4-4.5) mmol/L ABG Ionized Calcium (4.5-5.3) mg/dL ABG Glucose (75-99) mg/dL Hemoglobin (13.0-17.5) gm/dL Sodium (137-145) mmol/L Potassium (3.5-5.1) mmol/L Chloride (98-107) mmol/L BUN (9-20) mg/dL Creatinine (0.66-1.25) mg/dL Glucose (74-99) mg/dL POC Glucose (mg/dL) 129 H 148 H (75-99) mg/dL Calcium (8.4-10.2) mg/dL AST (17-59) U/L Alkaline Phosphatase (38-126) U/L Total Protein (6.3-8.2) g/dL Albumin (3.5-5.0) g/dL Arterial Blood Potassium (3.4-4.5) mmol/L Arterial Blood Glucose (75-99) mg/dL Crossmatch 10/07/21 10/07/21 10/07/21 Range/Units 19:55 21:14 21:25 RBC (4.30-5.90) m/uL Hgb (13.0-17.5) gm/dL Hct (39.0-53.0) % Plt Count (150-450) k/uL Neutrophils # (1.3-7.7) k/uL Lymphocytes # (1.0-4.8) k/uL ABG pH 7.29 L (7.35-7.45) ABG pCO2 49 H (35-45) mmHg ABG pO2 (83-108) mmHg ABG Total CO2 25 H (19-24) mmol/L ABG O2 Saturation 98.2 H (94-97) % ABG Hematocrit (34.0-46.0) % ABG Potassium (3.4-4.5) mmol/L ABG Ionized Calcium (4.5-5.3) mg/dL ABG Glucose (75-99) mg/dL Hemoglobin (13.0-17.5) gm/dL Sodium (137-145) mmol/L Potassium (3.5-5.1) mmol/L Chloride (98-107) mmol/L BUN (9-20) mg/dL Creatinine (0.66-1.25) mg/dL Glucose (74-99) mg/dL POC Glucose (mg/dL) 165 H 170 H (75-99) mg/dL Calcium (8.4-10.2) mg/dL AST (17-59) U/L Alkaline Phosphatase (38-126) U/L Total Protein (6.3-8.2) g/dL Albumin (3.5-5.0) g/dL Arterial Blood Potassium (3.4-4.5) mmol/L Arterial Blood Glucose (75-99) mg/dL Crossmatch 10/07/21 10/07/21 10/07/21 Range/Units 22:05 22:06 23:22 RBC 2.79 L (4.30-5.90) m/uL Hgb 8.2 L (13.0-17.5) gm/dL Hct 25.6 L (39.0-53.0) % Plt Count 119 L (150-450) k/uL Neutrophils # (1.3-7.7) k/uL Lymphocytes # 0.4 L (1.0-4.8) k/uL ABG pH (7.35-7.45) ABG pCO2 (35-45) mmHg ABG pO2 (83-108) mmHg ABG Total CO2 (19-24) mmol/L ABG O2 Saturation (94-97) % ABG Hematocrit (34.0-46.0) % ABG Potassium (3.4-4.5) mmol/L ABG Ionized Calcium (4.5-5.3) mg/dL ABG Glucose (75-99) mg/dL Hemoglobin (13.0-17.5) gm/dL Sodium (137-145) mmol/L Potassium (3.5-5.1) mmol/L Chloride (98-107) mmol/L BUN (9-20) mg/dL Creatinine (0.66-1.25) mg/dL Glucose (74-99) mg/dL POC Glucose (mg/dL) 167 H 158 H (75-99) mg/dL Calcium (8.4-10.2) mg/dL AST (17-59) U/L Alkaline Phosphatase (38-126) U/L Total Protein (6.3-8.2) g/dL Albumin (3.5-5.0) g/dL Arterial Blood Potassium (3.4-4.5) mmol/L Arterial Blood Glucose (75-99) mg/dL Crossmatch 10/08/21 10/08/21 10/08/21 Range/Units 00:14 03:06 04:30 RBC 2.79 L (4.30-5.90) m/uL Hgb 8.2 L (13.0-17.5) gm/dL Hct 25.7 L (39.0-53.0) % Plt Count 141 L (150-450) k/uL Neutrophils # 7.9 H (1.3-7.7) k/uL Lymphocytes # 0.4 L (1.0-4.8) k/uL ABG pH (7.35-7.45) ABG pCO2 (35-45) mmHg ABG pO2 (83-108) mmHg ABG Total CO2 (19-24) mmol/L ABG O2 Saturation (94-97) % ABG Hematocrit (34.0-46.0) % ABG Potassium (3.4-4.5) mmol/L ABG Ionized Calcium (4.5-5.3) mg/dL ABG Glucose (75-99) mg/dL Hemoglobin (13.0-17.5) gm/dL Sodium (137-145) mmol/L Potassium (3.5-5.1) mmol/L Chloride (98-107) mmol/L BUN (9-20) mg/dL Creatinine (0.66-1.25) mg/dL Glucose (74-99) mg/dL POC Glucose (mg/dL) 158 H 137 H (75-99) mg/dL Calcium (8.4-10.2) mg/dL AST (17-59) U/L Alkaline Phosphatase (38-126) U/L Total Protein (6.3-8.2) g/dL Albumin (3.5-5.0) g/dL Arterial Blood Potassium (3.4-4.5) mmol/L Arterial Blood Glucose (75-99) mg/dL Crossmatch 10/08/21 10/08/21 10/08/21 Range/Units 04:30 04:32 06:22 RBC (4.30-5.90) m/uL Hgb (13.0-17.5) gm/dL Hct (39.0-53.0) % Plt Count (150-450) k/uL Neutrophils # (1.3-7.7) k/uL Lymphocytes # (1.0-4.8) k/uL ABG pH (7.35-7.45) ABG pCO2 (35-45) mmHg ABG pO2 (83-108) mmHg ABG Total CO2 (19-24) mmol/L ABG O2 Saturation (94-97) % ABG Hematocrit (34.0-46.0) % ABG Potassium (3.4-4.5) mmol/L ABG Ionized Calcium (4.5-5.3) mg/dL ABG Glucose (75-99) mg/dL Hemoglobin (13.0-17.5) gm/dL Sodium 136 L (137-145) mmol/L Potassium 5.2 H (3.5-5.1) mmol/L Chloride 109 H (98-107) mmol/L BUN 24 H (9-20) mg/dL Creatinine 1.51 H (0.66-1.25) mg/dL Glucose 131 H (74-99) mg/dL POC Glucose (mg/dL) 146 H 150 H (75-99) mg/dL Calcium 8.2 L (8.4-10.2) mg/dL AST 77 H (17-59) U/L Alkaline Phosphatase (38-126) U/L Total Protein 5.1 L (6.3-8.2) g/dL Albumin 2.9 L (3.5-5.0) g/dL Arterial Blood Potassium (3.4-4.5) mmol/L Arterial Blood Glucose (75-99) mg/dL Crossmatch 10/08/21 10/08/21 10/08/21 Range/Units 07:10 08:24 09:50 RBC (4.30-5.90) m/uL Hgb (13.0-17.5) gm/dL Hct (39.0-53.0) % Plt Count (150-450) k/uL Neutrophils # (1.3-7.7) k/uL Lymphocytes # (1.0-4.8) k/uL ABG pH (7.35-7.45) ABG pCO2 (35-45) mmHg ABG pO2 (83-108) mmHg ABG Total CO2 (19-24) mmol/L ABG O2 Saturation (94-97) % ABG Hematocrit (34.0-46.0) % ABG Potassium (3.4-4.5) mmol/L ABG Ionized Calcium (4.5-5.3) mg/dL ABG Glucose (75-99) mg/dL Hemoglobin (13.0-17.5) gm/dL Sodium (137-145) mmol/L Potassium (3.5-5.1) mmol/L Chloride (98-107) mmol/L BUN (9-20) mg/dL Creatinine (0.66-1.25) mg/dL Glucose (74-99) mg/dL POC Glucose (mg/dL) 140 H 162 H 159 H (75-99) mg/dL Calcium (8.4-10.2) mg/dL AST (17-59) U/L Alkaline Phosphatase (38-126) U/L Total Protein (6.3-8.2) g/dL Albumin (3.5-5.0) g/dL Arterial Blood Potassium (3.4-4.5) mmol/L Arterial Blood Glucose (75-99) mg/dL Crossmatch 10/08/21 Range/Units 11:02 RBC (4.30-5.90) m/uL Hgb (13.0-17.5) gm/dL Hct (39.0-53.0) % Plt Count (150-450) k/uL Neutrophils # (1.3-7.7) k/uL Lymphocytes # (1.0-4.8) k/uL ABG pH (7.35-7.45) ABG pCO2 (35-45) mmHg ABG pO2 (83-108) mmHg ABG Total CO2 (19-24) mmol/L ABG O2 Saturation (94-97) % ABG Hematocrit (34.0-46.0) % ABG Potassium (3.4-4.5) mmol/L ABG Ionized Calcium (4.5-5.3) mg/dL ABG Glucose (75-99) mg/dL Hemoglobin (13.0-17.5) gm/dL Sodium (137-145) mmol/L Potassium (3.5-5.1) mmol/L Chloride (98-107) mmol/L BUN (9-20) mg/dL Creatinine (0.66-1.25) mg/dL Glucose (74-99) mg/dL POC Glucose (mg/dL) 142 H (75-99) mg/dL Calcium (8.4-10.2) mg/dL AST (17-59) U/L Alkaline Phosphatase (38-126) U/L Total Protein (6.3-8.2) g/dL Albumin (3.5-5.0) g/dL Arterial Blood Potassium (3.4-4.5) mmol/L Arterial Blood Glucose (75-99) mg/dL Crossmatch
[2021-10-08 12:05] LABS: Glucose,Whole Blood 140 mg/dL (75-99)
[2021-10-08 13:02] VITALS: BMI 40.7
[2021-10-08 13:22] LABS: Glucose,Whole Blood 185 mg/dL (75-99)
[2021-10-08] MEDS: SODIUM CHLORIDE 0.9% 1,000 ML IV SCH (13:45)
[2021-10-08] MEDS ORDERED: FUROSEMIDE 10 MG/ML 2 ML VIAL IV ONE (14:19)
[2021-10-08 14:43] LABS: Glucose,Whole Blood 153 mg/dL (75-99)
--- NOTE | 2021-10-08 15:48 | P.PN ---
Progress Note - Text Progress Note Date: 10/08/21 Presenting complaint: Chest pain History of presenting complaint: This is a 51-year-old patient was chronic stable medical conditions include diabetes mellitus type 2, hypertension, CK D stage III, GERD, gout with known coronary artery disease and prior 5 stents. Patient had been present for 15 years really has not prolonged cold. He was being followed at the [facility]. Patient presented to [facility] with chest hour left- sided precordial pain. Admitted with unstable angina. Put on IV heparin. Troponins were negative. Patient was transferred to [facility] in [place] for further intervention. Patient had a nuclear stress test that showed reversibility. Patient yesterday underwent cardiac catheterization was found to have triple-vessel disease. Cardiothoracic surgery's been consulted. Currently no chest pain. 2-D echo showed EF of 55-60% October 05: Sitting up in bed. No chest pain. Oral intake good. Consult nephrology. October 06: Comfortable. No chest pain no shortness of breath. Being scheduled for coronary bypass tomorrow. GPS Tether has been taken of a by the police deputy. PAMELA inhibitor held by nephrology. October 07: ICU. Ventilator 50/10. Quadruple coronary bypass. 2 mediastinal one chest tube. Drips include cleviprex, propofol, insulin, nitroglycerin. Sedated. Sinus rhythm. October 08: ICU: Patient been extubated. Sitting up in a chair. Chest tubes in place. On a clear liquid diet. Some shortness of breath. Sinus rhythm. Sinus rhythm. Martin catheter. Awake. Tired. Received IV amiodarone.. 6 L nasal cannula Review of systems: Was done for constitutional, cardiovascular, GI, pulmonary. relevant finding as above Active Medications Acetaminophen (Acetaminophen Tab 325 Mg Tab) 650 mg PO Q4HR PRN PRN Reason: Fever and/ or Pain Hydrocodone Bitart/Acetaminophen (Hydrocodone/Apap 7.5-325mg 1 Each Tab) 1 each PO Q4HR PRN PRN Reason: Moderate Pain Hydrocodone Bitart/Acetaminophen (Hydrocodone/Apap 7.5-325mg 1 Each Tab) 2 each PO Q4HR PRN PRN Reason: Severe Pain Last Admin: 10/08/21 12:00 Dose: 2 each Documented by: Albuterol/Ipratropium (Ipratropium-Albuterol 3 Ml Neb) 3 ml INHALATION RT-Q2H PRN PRN Reason: Shortness Of Breath Or Wheezing Albuterol/Ipratropium (Ipratropium-Albuterol 3 Ml Neb) 3 ml INHALATION RT-QID [facility] Last Admin: 10/08/21 15:21 Dose: Not Given Documented by: Amlodipine Besylate (Amlodipine 5 Mg Tab) 5 mg PO DAILY [facility] Last Admin: 10/08/21 08:14 Dose: 5 mg Documented by: Ascorbic Acid (Ascorbic Acid 500 Mg Tab) 500 mg PO BID-W/MEALS [facility] Last Admin: 10/08/21 08:14 Dose: 500 mg Documented by: Aspirin (Aspirin 325 Mg Tab) 325 mg PO DAILY [facility] Last Admin: 10/08/21 08:14 Dose: 325 mg Documented by: Atorvastatin Calcium (Atorvastatin 80 Mg Tab) 80 mg PO HS [facility] Last Admin: 10/08/21 03:36 Dose: 80 mg Documented by: Benzocaine/Menthol (Benzocaine/Menthol Lozeng 1 Each Lozenge) 1 each MUCOUS MEM Q2H PRN PRN Reason: Sore Throat Bisacodyl (Bisacodyl 10 Mg Supp) 10 mg RECTAL DAILY PRN PRN Reason: Constipation Clopidogrel Bisulfate (Clopidogrel 75 Mg Tab) 75 mg PO DAILY [facility] Last Admin: 10/08/21 08:14 Dose: 75 mg Documented by: Ferrous Sulfate (Ferrous Sulfate 325 Mg Tab) 325 mg PO BID-W/MEALS [facility] Last Admin: 10/08/21 08:14 Dose: 325 mg Documented by: Heparin Sodium (Porcine) (Heparin Sodium,Porcine/Pf 5,000 Unit/0.5 Ml Syringe) 5,000 unit SQ Q8HR [facility] Last Admin: 10/08/21 08:13 Dose: 5,000 unit Documented by: Hydralazine HCl (Hydralazine Hcl 20 Mg/Ml 1 Ml Vial) 10 mg IVP Q1H PRN PRN Reason: Blood Pressure - High Clevidipine 25 mg/ IV Solution 50 mls @ 2 mls/hr IV .Q24H [facility]; Protocol Last Titration: 10/08/21 06:35 Dose: 0 mg/hr, 0 mls/hr Documented by: Amiodarone HCl 150 mg/ (Dextrose/Water) 103 mls @ 618 mls/hr IV .Q10M PRN; Protocol PRN Reason: A.FIB/FLUTTER Amiodarone HCl 360 mg/ (Dextrose/Water) 207.2 mls @ 34.533 mls/hr IV .Q6H PRN; Protocol PRN Reason: A.FIB/FLUTTER Amiodarone HCl 450 mg/ (Dextrose/Water) 250 mls @ 16.667 mls/hr IV .Q15H PRN; Protocol PRN Reason: A.FIB/FLUTTER Albumin Human 250 ml/ IV (Solution) 250 mls @ 250 mls/hr IVPB Q1HR PRN; Protocol PRN Reason: For Volume Stop: 10/09/21 16:06 Insulin Human Regular 100 unit (/ Sodium Chloride) 101 mls @ 0 mls/hr IV .Q0M [facility]; Protocol Last Titration: 10/08/21 14:47 Dose: 6.5 unit/hr, 6.565 mls/hr Documented by: Sodium Chloride (Saline 0.9%) 1,000 mls @ 20 mls/hr IV .Q24H [facility] Last Admin: 10/08/21 13:45 Dose: Not Given Documented by: Magnesium Hydroxide (Magnesium Hydroxide 2,400 Mg/10 Ml Cup) 2,400 mg PO BID PRN PRN Reason: Constipation Metoclopramide HCl (Metoclopramide 5 Mg/Ml 2 Ml Vial) 10 mg IVP Q4H PRN PRN Reason: Nausea And Vomiting Metoprolol Tartrate (Metoprolol Tartrate 25 Mg Tab) 25 mg PO TID [facility] Miscellaneous Information (Potassium Replacement Protocol 1 Each Misc) 1 each MISCELLANE DAILY PRN; Protocol PRN Reason: Per Protocol Miscellaneous Information (Magnesium Replacement Protocol 1 Each Misc) 1 each MISCELLANE DAILY PRN; Protocol PRN Reason: Per Protocol Miscellaneous Information (Phosphorus Replacement Protoco 1 Each Misc) 1 each MISCELLANE DAILY PRN; Protocol PRN Reason: Per Protocol Mupirocin (Mupirocin 2% Oint 22 Gm Tube) 1 applic NASAL BID [facility]; Protocol Last Admin: 10/08/21 08:15 Dose: 1 applic Documented by: Ondansetron HCl (Ondansetron 4 Mg/2 Ml Vial) 4 mg IVP Q6HR PRN PRN Reason: Nausea And Vomiting Last Admin: 10/08/21 06:36 Dose: 4 mg Documented by: Pantoprazole Sodium (Pantoprazole 40 Mg Tablet) 40 mg PO AC-BRKFST [facility] Senna/Docusate Sodium (Sennosides-Docusate Sodium 1 Each Tab) 2 each PO HS [facility] Sodium Chloride (Sodium Chloride 0.9% Flush 10 Ml Syringe) 10 ml IV BID [facility] Last Admin: 10/08/21 08:15 Dose: 10 ml Documented by: Past medical history to include: Diabetes mellitus type 2, CAD with 5 stents, hypertension, CK D stage III, GERD, gout, obstructive sleep apnea, bipolar Social history: Patient average 3-4 packs a day for close to 40 years. Now a few cigarettes a day. Currently living at half a house. Was in the [facility] doctor recently for last 15 years. Family history: Mesothelioma, heart disease Physical examination: VITAL SIGNS: 98, 85, 18, 127/59, 96% on 6 L GENERAL: , Sitting up in a chair awake. 2 mediastinal 1 left pleural chest tube. EYES: Pupils equal. Conjunctiva normal. HEENT: External appearance of nose and ears normal, oral cavity normal NECK: JVD unable to assess; masses not palpable. HEART: First and second heart sounds are normal; no edema. LUNGS: Respiratory rate increased; decreased breath sounds. ABDOMEN: Soft, nontender, liver spleen not palpable, no masses palpable. Martin catheter PSYCH: AO 3, mood and affect tired Dermatology: Inspection skin grossly intact. No obvious abnormality on palpation: Musculoskeletal: Inspection no clubbing cyanosis. Palpation: No obvious bony abnormality INVESTIGATIONS, reviewed in the clinical context: October 08: White count 8.7 hemoglobin 8.2 platelets 141 potassium 5.2. 24 creatinine 1.51 albumin 2.9. Chest x-ray film personally reviewed by me: No infiltrates. Telemetry: Personally reviewed by me sinus rhythm October 07: White count 5 hemoglobin 7.3 platelets 85 potassium 4.7 BUN 24 creatinine 1.34 October 06: Potassium 4.3 creatinine 1.75 Renal ultrasound: Difficult exam due to patient body habitus. October 05: Hemoglobin 11.5 creatinine 1.67 White count is 6.3 hemoglobin 11.9 platelets 189 sodium 139 potassium 4.6 BUN 28 creatinine 1.55 Accu-Cheks noted HbA1c 6.3 TSH 1.6 Acute hepatitis panel for A, B, and C: Not reactive Coronavirus [PCR]: Not detected 2-D echocardiogram: Moderate concentric LVH. EF 55-60% Chest x-ray film personally reviewed by me-cardiomegaly. Telemetry tracings personally reviewed by me: Sinus rhythm, T-wave changes Assessment and plan: -Quadruple coronary bypass. 4 triple-vessel CAD On October [address] Renee -Acute hypoxic respiratory failure Ventilator support: Extubated. Currently on 6 L nasal cannula -Coronary artery disease with prior 5 stents Aspirin , Lopressor 25 mg 3 times a day. Amlodipine 5 mg a day -COPD in a previous smoker DuoNeb 3 times a day -Hyperlipidemia Lipitor 80 mg daily at bedtime -Chronic kidney disease stage III likely from diabetic nephropathy and nephrosclerosis Follow renal function closely. nephrology consult -Normocytic anemia of chronic disease from CK D -Acute postprocedure blood loss anemia, expected from surgery Follow H&H -Acute dilutional thrombocytopenia -Diabetes mellitus type 2 on oral hypoglycemic Insulin drip Follow Accu-Cheks -Essential hypertension Amlodipine, Lopressor -Chronic gout Allopurinol 100 mg a day -Morbid obesity BMI 40.2 2 mediastinal 1 left pleural chest tube. Up in a chair. Liquid diet. Insulin drip. Incentive spirometry. Martin catheter. Discussed with patient.
[2021-10-08] MEDS: METOPROLOL TARTRATE 25 MG TAB PO SCH ×2 (15:58→20:03)
[2021-10-08 16:03] LABS: Glucose,Whole Blood 145 mg/dL (75-99)
--- NOTE | 2021-10-08 16:03 | PN ---
PROGRESS NOTE The patient is seen for followup for acute kidney injury on top of chronic kidney disease. He is status post coronary artery bypass surgery, postop day #1. The patient had triple-vessel coronary artery disease. He had a quadruple bypass. Currently he is extubated, sitting up in a bedside chair, trying to eat. The patient's urine output has been at about 30-50 mL an hour. His creatinine had decreased to 1.3 yesterday, today it is at 1.5. His admission creatinine was about 1.7 mg/dL. Blood pressure is not low, systolic blood pressure 130-140 mmHg. The patient is maintained on IV fluids at about 50 mL an hour. EXAMINATION: This morning blood pressure was 145/69, heart rate 95 per minute. Patient is afebrile. Examination of the heart S1, S2. Examination of the lungs, bilateral breath sounds are heard. Poor respiratory effort. Examination lower extremities shows edema 1+ bilaterally. [employer] exam grossly intact. LABS: From today show sodium 136, potassium 5.2, chloride 109, BUN 24, creatinine 1.5, hemoglobin 8.2 g/dL. ASSESSMENT: 1. Chronic kidney disease secondary to nephrosclerosis with baseline creatinine about 1.5 mg/dL. UA had trace protein. The patient had initially acute kidney injury, acute tubular necrosis associated with contrast induced nephropathy. His serum creatinine did decrease to about 1.3, however, at that time, he was immediately postop and status post IV fluids. Today creatinine is about 1.5 with fair urine output. He appears mildly volume overloaded. Okay to give one dose of Lasix 20 mg IV. 2. Status post quadruple coronary artery bypass surgery. 3. Anemia postoperatively. No active bleeding noted. 4. Type 2 diabetes. 5. History of gout. PLAN: Okay to use one dose of IV Lasix 20 mg. Repeat labs in a.m. Avoid hypotension. MMODL / IJN: [id number] /
[2021-10-08 17:28] LABS: Glucose,Whole Blood 170 mg/dL (75-99)
[2021-10-08 18:49] LABS: Glucose,Whole Blood 183 mg/dL (75-99)
[2021-10-08 19:51] LABS: Glucose,Whole Blood 162 mg/dL (75-99)
[2021-10-08] MEDS: SENNOSIDES-DOCUSATE SODIUM 1 EACH TAB PO SCH (20:03)
[2021-10-08 23:20] LABS: Glucose,Whole Blood 127 mg/dL (75-99)
[2021-10-09 00:56] LABS: Glucose,Whole Blood 118 mg/dL (75-99)
[2021-10-09] MEDS: INSULIN REGULAR 100 UNIT in SODIUM CHLORIDE 0.9% 100 ML IV SCH (02:51)
[2021-10-09 02:56] LABS: Glucose,Whole Blood 133 mg/dL (75-99)
[2021-10-09 04:45] LABS: Glucose,Whole Blood 140 mg/dL (75-99)
[2021-10-09] MEDS: HYDROcodone/APAP 7.5-325MG 1 EACH TAB PO PRN ×2 (04:56→09:09)
[2021-10-09 05:03] LABS: Basophils % (A) 0 %; Eosinophils # (A) 0.1 k/uL (0-0.7); Eosinophils % (A) 1 %; HCT 23.9 % (39.0-53.0); HGB 7.7 gm/dL (13.0-17.5); Hypochromasia Slight; Lymphocytes # (A) 0.7 k/uL (1.0-4.8); Lymphocytes % (A) 7 %; MCH 29.6 pg (25.0-35.0); MCHC 32.3 g/dL (31.0-37.0); MCV 91.7 fL (80.0-100.0); Mean Platelet Volume 8.9; Monocytes # (A) 0.5 k/uL (0-1.0); Monocytes % (A) 5 %; Neutrophils # (A) 9.4 k/uL (1.3-7.7); Neutrophils % (A) 86 %; Platelet Count 129 k/uL (150-450); RBC 2.61 m/uL (4.30-5.90); RDW 15.2 % (11.5-15.5); WBC 10.9 k/uL (3.8-10.6)
[2021-10-09 05:21] LABS: Albumin 2.9 g/dL (3.5-5.0); Potassium 4.9 mmol/L (3.5-5.1); Total Bilirubin 0.9 mg/dL (0.2-1.3); Total Protein 5.4 g/dL (6.3-8.2)
[2021-10-09] MEDS: FERROUS SULFATE 325 MG TAB PO SCH ×2 (06:38→17:50)
[2021-10-09] MEDS: PANTOPRAZOLE 40 MG TABLET PO SCH (06:38)
[2021-10-09] MEDS: ASCORBIC ACID 500 MG TAB PO SCH ×2 (06:38→17:50)
[2021-10-09 06:43] LABS: Glucose,Whole Blood 147 mg/dL (75-99)
--- NOTE | 2021-10-09 07:29 | P.PN ---
Subjective Progress Note Date: 10/09/21 Principal diagnosis: Triple-vessel diffuse coronary artery disease, unstable angina, preserved left ventricular function. Previous medical history of coronary artery disease with previous myocardial infarction and previous stenting 5, hypertension, hyperlipidemia, xjp-uhegazh-lyiaupsir diabetes, obesity, chronic kidney disease stage III, obstructive sleep apnea currently not using CPAP, anemia, gout, GERD, current light tobacco dependence, family history of premature coronary artery disease with both parents diagnosed before the age of 60, vaccinated and boosted against Covid POD #2 quadruple coronary artery bypass grafting using the left internal mammary artery to the left anterior descending artery, left radial artery from the aorta to the ramus intermedius artery, reverse saphenous vein graft from the aorta to the second obtuse marginal artery, reverse saphenous vein graft from the aorta to the early arising posterior descending artery, exclusion of the left atrial appendage using a 45 mm AtriClip, sternal plating using the cranium system, graft flow measurements using the [employer] OTRstim system, endoscopic harvesting of the left radial artery, endoscopic harvesting of the left greater saphenous vein, intraoperative transesophageal echocardiogram and epi-aortic scanning Postoperative acute blood loss anemia, expected given hemodilution, cardiopulmonary bypass pump, and preoperative anemia The patient was seen and examined this morning sitting up in a recliner in the intensive care unit in no acute distress. Does complain of post surgical chest pain, denies shortness of breath. Remains in sinus rhythm, hemodynamically stable. Actively attempting incentive spirometry use. Ambulated out to the hallway 3 times yesterday. He received IV Lasix yesterday afternoon without significant diuresis. Right internal jugular cordis, right radial arterial li ne, mediastinal/left pleural chest tubes all remain. No other new concerns. Objective - Vital Signs Vital signs: Vital Signs Temp 100.3 F H 10/09/21 04:00 Pulse 91 10/09/21 07:00 Resp 14 10/09/21 07:00 BP 124/71 10/08/21 22:00 Pulse Ox 92 L 10/09/21 07:00 Intake & Output 10/08/21 10/09/21 10/09/21 18:59 06:59 18:59 Intake Total 1391.006 826.170 23 Output Total 725 455 20 Balance 666.006 371.170 3 Weight 128.7 kg 131.2 kg Intake: IV 259.5 36 3 Nitroglycerin-D5w Pmx 50 1.5 mg In Dextrose/Water 1 250ml.bag @ 5 MCG/MIN 1.5 mls/hr IV .Q24H [facility] Rx#: [id number] Sodium Chloride 0.9% 1, 100 000 ml @ 50 mls/hr IV . Q20H [facility] Rx#:[id number] ceFAZolin 2 gm In Sodium 50 Chloride 0.9% 50 ml @ 100 mls/hr IVPB Q8HR [facility] Rx# :[id number] co/ci 30 pressure bag 78 36 3 Intake, IV Titration 291.506 310.170 20 Amount Insulin Regular 100 unit 91.506 70.170 In Sodium Chloride 0.9% 100 ml @ Per Protocol IV .Q0M [facility] Rx#:[id number] Sodium Chloride 0.9% 1, 200 240 20 000 ml @ 20 mls/hr IV . Q24H [facility] Rx#:[id number] Oral 720 480 Tube Feeding 120 Output: Chest Tube Drainage 280 80 left pleural 90 30 ms x2 190 50 Urine 445 375 20 Other: Voiding Method Indwelling Catheter Indwelling Catheter ABP, PAP, CO, CI - Last Documented Arterial Blood Pressure 108/54 Pulmonary Artery Pressure 23/11 Cardiac Output 7.4 Cardiac Index 3.1 - Exam CONSTITUTIONAL: Appears comfortable, cooperative, no acute distress RESPIRATORY: Lungs sounds diminished bilaterally. Respirations even, nonlabored. Currently on 4 L high flow nasal cannula with oxygen saturation 93%. Able to achieve 750 mL on incentive spirometry. Strong productive cough. CARDIOVASCULAR: S1, S2 present. Regular rate and rhythm, sinus rhythm on tele metry. Sternum stable. Palpable peripheral pulses bilaterally. Generalized edema present. No calf pain or tenderness noted. Heart hugger in place with patient demonstrating appropriate use. Antiembolism stockings, SCDs present. GASTROINTESTINAL: Abdomen soft, nontender, nondistended. Active bowel sounds present 4 quadrants. Tolerating full liquids. GENITOURINARY: Martin present draining clear, yellow urine. Output overnight 30-50 mL per hour, 820 mL the last 24 hours. INTEGUMENTARY: Skin is warm and dry with evidence of good perfusion. Anterior chest incision well approximated and covered with dry intact dressing. Left lower extremity EVH site well approximated without redness or drainage. Left radial artery harvest site well approximated without redness or drainage, left hand is warm and pink NEUROLOGIC: Cranial nerves II through XII intact MUSKULOSKELETAL: Able to move all extremities, strength equal bilaterally, able to ambulate with minimal assist PSYCHIATRIC: Alert and oriented to person place and time, appropriate affect, intact judgment and insight INVASIVE LINES AND TUBES: Mediastinal/left pleural chest tubes present and connected to wall suction, no air leaks present. Mediastinal tube with 40 mL serosanguineous drainage overnight, 250 mL in the last 24 hours. Left pleural chest tube with 30 mL serosanguineous drainage overnight, 100 mL in the last 24 hours. A/V epicardial pacemaker wires present, connected to generator, VVI mode with backup rate 54 bpm. Right internal jugular Cordis, right radial arterial line present. - Allied health notes Allied health notes reviewed: nursing - Labs CBC & Chem 7: 10/09/21 04:45 10/09/21 04:45 Labs: Abnormal Lab Results - Last 24 Hours (Table) 10/08/21 10/08/21 10/08/21 Range/Units 08:24 09:50 11:02 WBC (3.8-10.6) k/uL RBC (4.30-5.90) m/uL Hgb (13.0-17.5) gm/dL Hct (39.0-53.0) % Plt Count (150-450) k/uL Neutrophils # (1.3-7.7) k/uL Lymphocytes # (1.0-4.8) k/uL Sodium (137-145) mmol/L Carbon Dioxide (22-30) mmol/L BUN (9-20) mg/dL Creatinine (0.66-1.25) mg/dL Glucose (74-99) mg/dL POC Glucose (mg/dL) 162 H 159 H 142 H (75-99) mg/dL Calcium (8.4-10.2) mg/dL AST (17-59) U/L Total Protein (6.3-8.2) g/dL Albumin (3.5-5.0) g/dL 10/08/21 10/08/21 10/08/21 Range/Units 12:04 13:21 14:40 WBC (3.8-10.6) k/uL RBC (4.30-5.90) m/uL Hgb (13.0-17.5) gm/dL Hct (39.0-53.0) % Plt Count (150-450) k/uL Neutrophils # (1.3-7.7) k/uL Lymphocytes # (1.0-4.8) k/uL Sodium (137-145) mmol/L Carbon Dioxide (22-30) mmol/L BUN (9-20) mg/dL Creatinine (0.66-1.25) mg/dL Glucose (74-99) mg/dL POC Glucose (mg/dL) 140 H 185 H 153 H (75-99) mg/dL Calcium (8.4-10.2) mg/dL AST (17-59) U/L Total Protein (6.3-8.2) g/dL Albumin (3.5-5.0) g/dL 10/08/21 10/08/21 10/08/21 Range/Units 16:00 17:27 18:48 WBC (3.8-10.6) k/uL RBC (4.30-5.90) m/uL Hgb (13.0-17.5) gm/dL Hct (39.0-53.0) % Plt Count (150-450) k/uL Neutrophils # (1.3-7.7) k/uL Lymphocytes # (1.0-4.8) k/uL Sodium (137-145) mmol/L Carbon Dioxide (22-30) mmol/L BUN (9-20) mg/dL Creatinine (0.66-1.25) mg/dL Glucose (74-99) mg/dL POC Glucose (mg/dL) 145 H 170 H 183 H (75-99) mg/dL Calcium (8.4-10.2) mg/dL AST (17-59) U/L Total Protein (6.3-8.2) g/dL Albumin (3.5-5.0) g/dL 10/08/21 10/08/21 10/09/21 Range/Units 19:49 23:17 00:52 WBC (3.8-10.6) k/uL RBC (4.30-5.90) m/uL Hgb (13.0-17.5) gm/dL Hct (39.0-53.0) % Plt Count (150-450) k/uL Neutrophils # (1.3-7.7) k/uL Lymphocytes # (1.0-4.8) k/uL Sodium (137-145) mmol/L Carbon Dioxide (22-30) mmol/L BUN (9-20) mg/dL Creatinine (0.66-1.25) mg/dL Glucose (74-99) mg/dL POC Glucose (mg/dL) 162 H 127 H 118 H (75-99) mg/dL Calcium (8.4-10.2) mg/dL AST (17-59) U/L Total Protein (6.3-8.2) g/dL Albumin (3.5-5.0) g/dL 10/09/21 10/09/21 10/09/21 Range/Units 02:54 04:44 04:45 WBC 10.9 H (3.8-10.6) k/uL RBC 2.61 L (4.30-5.90) m/uL Hgb 7.7 L (13.0-17.5) gm/dL Hct 23.9 L (39.0-53.0) % Plt Count 129 L (150-450) k/uL Neutrophils # 9.4 H (1.3-7.7) k/uL Lymphocytes # 0.7 L (1.0-4.8) k/uL Sodium (137-145) mmol/L Carbon Dioxide (22-30) mmol/L BUN (9-20) mg/dL Creatinine (0.66-1.25) mg/dL Glucose (74-99) mg/dL POC Glucose (mg/dL) 133 H 140 H (75-99) mg/dL Calcium (8.4-10.2) mg/dL AST (17-59) U/L Total Protein (6.3-8.2) g/dL Albumin (3.5-5.0) g/dL 10/09/21 10/09/21 Range/Units 04:45 06:42 WBC (3.8-10.6) k/uL RBC (4.30-5.90) m/uL Hgb (13.0-17.5) gm/dL Hct (39.0-53.0) % Plt Count (150-450) k/uL Neutrophils # (1.3-7.7) k/uL Lymphocytes # (1.0-4.8) k/uL Sodium 131 L (137-145) mmol/L Carbon Dioxide 21 L (22-30) mmol/L BUN 28 H (9-20) mg/dL Creatinine 2.20 H (0.66-1.25) mg/dL Glucose 129 H (74-99) mg/dL POC Glucose (mg/dL) 147 H (75-99) mg/dL Calcium 8.0 L (8.4-10.2) mg/dL AST 61 H (17-59) U/L Total Protein 5.4 L (6.3-8.2) g/dL Albumin 2.9 L (3.5-5.0) g/dL - Imaging and Cardiology Chest x-ray: image reviewed Assessment and Plan Assessment: 1. Triple-vessel diffuse coronary artery disease with previous myocardial infarction and previous stenting 5, most recently 2008, status post four-vessel CABG 2. Preserved left ventricular function, EF 55-60% 3. Hypertension 4. Hyperlipidemia, treated, cholesterol 138, LDL 59.2, triglycerides 260 5. Mzx-ynwvdxl-mcduhixrq diabetes, hemoglobin A1c 6.3% 6. Obesity 7. Chronic kidney disease stage III 8. Obstructive sleep apnea currently not using CPAP 9. Anemia 10. Gout 11. GERD 12. Current light tobacco dependence, mild COPD with FEV1 62% of predicted 13. Family history of premature coronary artery disease with both parents diagnosed before the age of 60 14. Vaccinated and boosted against Covid 15. Postoperative acute blood loss anemia, expected Plan: 1. Continue aspirin, statin, Plavix, beta brandy therapy. Will increase beta brandy therapy as tolerated, increased to 50 mg twice daily today 2. Continue oral calcium channel brandy for radial artery spasm prophylaxis 3. Wean O2 as tolerated. Encourage incentive spirometry use. Bronchodilators, BiPAP per pulmonology 4. Increase activity, ambulate as tolerated. PT/OT/cardiac rehab following 5. Will monitor daily labs and x-rays. Electrolyte replacement per protocol. Avoid nephrotoxins 6. GI/DVT prophylaxis 7. Insulin management per primary care service 8. Discontinue Cordis, arterial line 9. Pain control with current medication regimen. Avoid Toradol secondary to kidney disease 10. Will discontinue all chest tubes 11. Discontinue Martin catheter, may bladder scan and straight cath for greater than 300 mL residual 12. Strict accurate intake and output 13. Encourage smoking cessation 14. More recommendations to follow based on patient's progress Time with Patient: Greater than 30
--- NOTE | 2021-10-09 07:29 | P.PN ---
Subjective Progress Note Date: 10/09/21 51-year-old male with history of CAD, prior myocardial infarction, and stenting, 2008, as well as hypertension, hyperlipidemia, diabetes, COPD, sleep apnea, anemia, and chronic tobacco use, who had a catheterization at [facility]. It showed multivessel coronary artery disease, and the patient is apparently being evaluated for possible eye past grafting. The patient's currently not receiving any supplemental oxygen. The patient is on saline IV at [facility]. He has smoked for many years. The patient apparently has recently been out of care home, and is currently wearing a tender. 10/06/2021, the patient is being seen for a follow-up. As we are following up this patient, the patient is being worked up for coronary artery bypass surgery as the patient is known to have multivessel coronary disease with triple-vessel involvement. The patient undergone a previous myocardial infarction and previous stenting 5. The patient also has history of hypertension, hyperlipidemia, btt-ltmhmsy-cyxcvbvuz diabetes mellitus, chronic stage III kidney disease and obstructive sleep apnea not utilizing CPAP therapy. The patient also has gout, chronic anemia and premature history of coronary artery disease. The patient has been vaccinated and boosted for COVID 19 infections. The patient is currently using incentive spirometer. He is pulling approximately 3000. His free of any chest pain for now. Spirometry was done and the patient was found to have an FEV1 of 2.41 L and the patient had an MCV of 90.4 L per minute. Otherwise, the patient is doing well. No significant complaints for now. His free of any chest pain. His cardiac catheterization with an [facility]. 10/07/2021, the patient is being seen in the intensive care unit. Following coronary artery bypass surgery. The patient undergone four-vessel bypass surgery. At this point in time, the patient is sedated and the patient is currently on propofol running at 50 mcg/kg per minute. The patient was brought in to the ICU on assist control mode of mechanical ventilation at the rate of 12, tidal volume of 550, PEEP of 10 and FiO2 of 60%. The blood gases showed a pH of 7.32 with a pCO2 of 47 and pO2 of 300. Based on that, the FiO2 was dropped down to 60% and the rate was increased up to 20. The chest x-ray was done in the ICU and the patient had adequate expansion of both lungs. ET tube was in good location. Delancey-Danae catheter was in a good location. The patient has a left pleural and 2 mediastinal chest tubes. Output from the chest tubes have been in the order of 100 mL from the mediastinal chest tube and 50 mL from the left pleural chest tube. Current pulmonary artery pressures of 49/32. Her net output is at 7.9 with an index of 3.3. The patient is currently on Catapres at 4 mg an hour for blood pressure control. The chest x-ray shows no evidence of any pneumothorax. There is adequate expansion of both lungs bilaterally. The patient has adequate urine output. The patient's hypothermic with a temperature cor of 36.4 and the patient is receiving external warming at this point in time. No other significant events otherwise. The patient is also on nitroglycerin 5 micrograms per minute. On 2021, the patient remains extubated. The patient arrived to the ICU following his surgery as the patient underwent four-vessel bypass surgery. Postop, he was on sedation. Sedation was gradually weaned off. FiO2 was weaned off. Patient was given a spelled his breathing trial and following that the patient was extubated to BiPAP. This morning he is in oxygen by nasal cannula at 5 L. His chest x-ray from this morning showing no acute abnormalities. Obviously the ET tube has been removed. The Delancey-Danae catheter is in place. The patient has 2 mediastinal chest tubes and 1 pleural chest tube on the left. No evidence of any pneumothorax. No signs of any respiratory distress. Cardiac rhythm remains sinus. The patient is on no pressors. Cardiac output currently is at 7.4 with an index of 3.1. Pulmonary artery pressures of 24/7. Output from the chest tubes have been noted. The total amount of output from the left pleural chest tube is 41 mL over the past 12 hours and mediastinal chest tubes 180 mL over the past 12 hours. The patient also has a NICOL drain in the left upper extremity. The output from the left arm has been 25 mL of serosanguineous drainage. There is also another NICOL in the left lower extremity the output being 35 mL. The patient is currently off the nitroglycerin drip. He is on insulin drip at 5 units an hour. Neurologically intact. Moving 4 extremities without any limitation. 10/09/2021, the patient remains extubated and the patient is still on oxygen at 4 L per minute. He is post coronary artery bypass surgery and the patient underwent four-vessel bypass and today he is postop day #2. Doing very well. Delancey-Danae catheter has been removed. The patient continues to have 2 mediastinal and 1 left-sided pleural chest tube. Output from those tubes have been minimal overnight. No evidence of any air leak. The chest x-ray from today was reviewed and was compared to the earlier chest x-ray. There is some atelectatic changes in the left lung. All of the tubes are in good location. No evidence of any pneumothorax. There is cardiomegaly. Lung volumes are essentially small. NICOL drains are ordered mode at this point in time. Hemoglobin is at 7.9. White cell count is at 10.9. Platelet counts is at 129. Creatinine is at 2.2 knowing that the patient has a component of chronic kidney disease. Sodium is 131. Potassium is at 4.9. Urine output is adequate. Blood sugar control is with insulin drip at 6.5 units an hour. Using the IS and he is pulling 1000cc Objective - Vital Signs Vital signs: Vital Signs Temp 100.3 F H 10/09/21 04:00 Pulse 91 10/09/21 07:00 Resp 14 10/09/21 07:00 BP 124/71 10/08/21 22:00 Pulse Ox 92 L 10/09/21 07:00 Intake & Output 10/08/21 10/09/21 10/09/21 18:59 06:59 18:59 Intake Total 1391.006 826.170 23 Output Total 725 455 20 Balance 666.006 371.170 3 Weight 128.7 kg 131.2 kg Intake: IV 259.5 36 3 Nitroglycerin-D5w Pmx 50 1.5 mg In Dextrose/Water 1 250ml.bag @ 5 MCG/MIN 1.5 mls/hr IV .Q24H [facility] Rx#: [id number] Sodium Chloride 0.9% 1, 100 000 ml @ 50 mls/hr IV . Q20H [facility] Rx#:[id number] ceFAZolin 2 gm In Sodium 50 Chloride 0.9% 50 ml @ 100 mls/hr IVPB Q8HR [facility] Rx# :[id number] co/ci 30 pressure bag 78 36 3 Intake, IV Titration 291.506 310.170 20 Amount Insulin Regular 100 unit 91.506 70.170 In Sodium Chloride 0.9% 100 ml @ Per Protocol IV .Q0M [facility] Rx#:[id number] Sodium Chloride 0.9% 1, 200 240 20 000 ml @ 20 mls/hr IV . Q24H [facility] Rx#:[id number] Oral 720 480 Tube Feeding 120 Output: Chest Tube Drainage 280 80 left pleural 90 30 ms x2 190 50 Urine 445 375 20 Other: Voiding Method Indwelling Catheter Indwelling Catheter ABP, PAP, CO, CI - Last Documented Arterial Blood Pressure 108/54 Pulmonary Artery Pressure 23/11 Cardiac Output 7.4 Cardiac Index 3.1 - Exam No acute distress, extubated to 5 L of oxygen by nasal cannula, awake and alert and following commands and answering questions. HEENT examination is grossly unremarkable. Neck supple. Full range of motion. No adenopathy thyromegaly or neck vein distention. Cardiovascular examination reveals regular rhythm rate. S1-S2 normal. No S3 or S4. No discernible murmur noted. Lungs reveal clear breath sounds. Breath sounds are equal bilaterally. No adventitious lung sounds including wheezes rhonchi or crackles. The patient has equal and symmetrical breath sounds. Sternum stable clean and intact. The patient has 2 mediastinal and 1 pleural chest tube on the left. Abdomen soft bowel sounds are heard. No masses or tenderness. Extremities are intact. No cyanosis clubbing or edema. He is wearing a tether on his ankle. Examination of the skin revealed no evidence of significant rashes, suspicious appearing nevi or other concerning lesions. Neurologic examination is intact - Labs CBC & Chem 7: 10/09/21 04:45 10/09/21 04:45 Labs: Abnormal Lab Results - Last 24 Hours (Table) 10/08/21 10/08/21 10/08/21 Range/Units 08:24 09:50 11:02 WBC (3.8-10.6) k/uL RBC (4.30-5.90) m/uL Hgb (13.0-17.5) gm/dL Hct (39.0-53.0) % Plt Count (150-450) k/uL Neutrophils # (1.3-7.7) k/uL Lymphocytes # (1.0-4.8) k/uL Sodium (137-145) mmol/L Carbon Dioxide (22-30) mmol/L BUN (9-20) mg/dL Creatinine (0.66-1.25) mg/dL Glucose (74-99) mg/dL POC Glucose (mg/dL) 162 H 159 H 142 H (75-99) mg/dL Calcium (8.4-10.2) mg/dL AST (17-59) U/L Total Protein (6.3-8.2) g/dL Albumin (3.5-5.0) g/dL 10/08/21 10/08/21 10/08/21 Range/Units 12:04 13:21 14:40 WBC (3.8-10.6) k/uL RBC (4.30-5.90) m/uL Hgb (13.0-17.5) gm/dL Hct (39.0-53.0) % Plt Count (150-450) k/uL Neutrophils # (1.3-7.7) k/uL Lymphocytes # (1.0-4.8) k/uL Sodium (137-145) mmol/L Carbon Dioxide (22-30) mmol/L BUN (9-20) mg/dL Creatinine (0.66-1.25) mg/dL Glucose (74-99) mg/dL POC Glucose (mg/dL) 140 H 185 H 153 H (75-99) mg/dL Calcium (8.4-10.2) mg/dL AST (17-59) U/L Total Protein (6.3-8.2) g/dL Albumin (3.5-5.0) g/dL 10/08/21 10/08/21 10/08/21 Range/Units 16:00 17:27 18:48 WBC (3.8-10.6) k/uL RBC (4.30-5.90) m/uL Hgb (13.0-17.5) gm/dL Hct (39.0-53.0) % Plt Count (150-450) k/uL Neutrophils # (1.3-7.7) k/uL Lymphocytes # (1.0-4.8) k/uL Sodium (137-145) mmol/L Carbon Dioxide (22-30) mmol/L BUN (9-20) mg/dL Creatinine (0.66-1.25) mg/dL Glucose (74-99) mg/dL POC Glucose (mg/dL) 145 H 170 H 183 H (75-99) mg/dL Calcium (8.4-10.2) mg/dL AST (17-59) U/L Total Protein (6.3-8.2) g/dL Albumin (3.5-5.0) g/dL 10/08/21 10/08/21 10/09/21 Range/Units 19:49 23:17 00:52 WBC (3.8-10.6) k/uL RBC (4.30-5.90) m/uL Hgb (13.0-17.5) gm/dL Hct (39.0-53.0) % Plt Count (150-450) k/uL Neutrophils # (1.3-7.7) k/uL Lymphocytes # (1.0-4.8) k/uL Sodium (137-145) mmol/L Carbon Dioxide (22-30) mmol/L BUN (9-20) mg/dL Creatinine (0.66-1.25) mg/dL Glucose (74-99) mg/dL POC Glucose (mg/dL) 162 H 127 H 118 H (75-99) mg/dL Calcium (8.4-10.2) mg/dL AST (17-59) U/L Total Protein (6.3-8.2) g/dL Albumin (3.5-5.0) g/dL 10/09/21 10/09/21 10/09/21 Range/Units 02:54 04:44 04:45 WBC 10.9 H (3.8-10.6) k/uL RBC 2.61 L (4.30-5.90) m/uL Hgb 7.7 L (13.0-17.5) gm/dL Hct 23.9 L (39.0-53.0) % Plt Count 129 L (150-450) k/uL Neutrophils # 9.4 H (1.3-7.7) k/uL Lymphocytes # 0.7 L (1.0-4.8) k/uL Sodium (137-145) mmol/L Carbon Dioxide (22-30) mmol/L BUN (9-20) mg/dL Creatinine (0.66-1.25) mg/dL Glucose (74-99) mg/dL POC Glucose (mg/dL) 133 H 140 H (75-99) mg/dL Calcium (8.4-10.2) mg/dL AST (17-59) U/L Total Protein (6.3-8.2) g/dL Albumin (3.5-5.0) g/dL 10/09/21 10/09/21 Range/Units 04:45 06:42 WBC (3.8-10.6) k/uL RBC (4.30-5.90) m/uL Hgb (13.0-17.5) gm/dL Hct (39.0-53.0) % Plt Count (150-450) k/uL Neutrophils # (1.3-7.7) k/uL Lymphocytes # (1.0-4.8) k/uL Sodium 131 L (137-145) mmol/L Carbon Dioxide 21 L (22-30) mmol/L BUN 28 H (9-20) mg/dL Creatinine 2.20 H (0.66-1.25) mg/dL Glucose 129 H (74-99) mg/dL POC Glucose (mg/dL) 147 H (75-99) mg/dL Calcium 8.0 L (8.4-10.2) mg/dL AST 61 H (17-59) U/L Total Protein 5.4 L (6.3-8.2) g/dL Albumin 2.9 L (3.5-5.0) g/dL Assessment and Plan Plan: 1 Multivessel coronary artery disease, with anticipated bypass grafting, next week. The patient has had previous myocardial infarction and stenting 5 most recently in 2008. The patient is currently being evaluated for coronary artery bypass surgery. The patient is post four-vessel bypass surgery. Currently the patient is postop day #2. The patient is hemodynamically stable. The patient has adequate cardiac output and index. Chest tubes are still in place. Hemody namically stable. Cardiac rhythm is sinus. Delancey-Danae catheter was removed. Chest x-ray findings are stable. 2 post thoracotomy, currently on a mechanical ventilator. Currently on 5 L by nasal cannula. The chest tubes are all in place. Output has been noted. The patient is hemodynamically stable at this point in time. 3 History of myocardial infarction, 2008. 4 Essential hypertension. 5 Hyperlipidemia. 6 Diabetes mellitus. The patient has a HbA1c of 6.3%, insulin drip is running a t 6.5 units an hour 7 Suspected COPD from chronic tobacco use. The patient has a an FEV1 of 62% of predicted 8 Sleep apnea syndrome. not utilizing CPAP therapy. Body mass index is 21.8 9 History of anemia. 10 chronic stage III kidney disease CREATININE IS ALSO STABLE AND THE PATIENT HAS CHRONIC STAGE III KIDNEY DISEASE. Creatinine is at 2.2 11 gout 12 active for COVID 19 including booster shot Plan Chest x-ray was noted. Remove chest tubes today Wean off FiO2 as tolerated and continue using incentive spirometer Monitor the output from the chest tubes. Monitor hemodynamic parameters include a cardiac output and index. Start the patient on a combination of aspirin and Plavix and beta blockers Gradually advance diet as tolerated switch to Levemir 20 U and a SS coverage We will is stable at 7.7 We'll continue to follow.
[2021-10-09] MEDS: amLODIPine 5 MG TAB PO SCH (08:20)
[2021-10-09] MEDS: ASPIRIN 325 MG TAB PO SCH (08:20)
[2021-10-09] MEDS: METOPROLOL TARTRATE 50 MG TAB PO SCH ×2 (08:20→22:01)
[2021-10-09] MEDS: CLOPIDOGREL 75 MG TAB PO SCH (08:20)
[2021-10-09] MEDS: HEPARIN SODIUM,PORCINE/PF 5,000 UNIT/0.5 ML SYRINGE SQ SCH ×3 (08:20→23:27)
[2021-10-09] MEDS: MUPIROCIN 2% OINT 22 GM TUBE NASAL SCH (08:21)
[2021-10-09 08:29] LABS: Glucose,Whole Blood 182 mg/dL (75-99)
--- NOTE | 2021-10-09 08:30 | XR ---
EXAMINATION TYPE: XR chest 1V portable DATE OF EXAM: 10/09/2021 CLINICAL HISTORY: Postopen cardiac surgery progress study. TECHNIQUE: Single AP portable upright view of the chest is obtained. COMPARISON: Chest x-ray from one day earlier and older studies. FINDINGS: Interval removal of right internal jugular [place] catheter, Cordis sheath remains prese nt. Stable left basilar chest tube. Stable 2 mediastinal drainage catheters. Overlying sternal wires and mediastinal clips along with left atrial appendage clip are all redemonstrated. Persistent mild cardiomegaly and mild central vascular congestion. No visualized pneumothorax. Osseou s structures are intact. IMPRESSION: Mild cardiomegaly with mild central vascular congestion redemonstrated. Left basilar anastasia st tube without large pneumothorax. No significant change from one day earlier.
[2021-10-09] MEDS: IPRATROPIUM-ALBUTEROL 3 ML NEB INHALATION SCH ×3 (10:59→19:24)
[2021-10-09 11:40] LABS: Glucose,Whole Blood 215 mg/dL (75-99)
[2021-10-09] MEDS: INSULIN ASPART (NovoLOG) 100 UNIT/ML VIAL SQ SCH ×3 (11:43→22:02)
--- NOTE | 2021-10-09 11:55 | PN ---
PROGRESS NOTE Patient is seen for followup for acute kidney injury on top of chronic kidney disease. Patient is status post coronary artery bypass surgery x4. Today is his postoperative day #2. Serum creatinine has increased slightly. Patient's urine output had been 20 to 40 mL/hour overnight. Blood pressure has been occasionally on the lower side, with systolic around 104 to 103 mmHg. Currently off of fluids. Patient received a dose of IV Lasix yesterday at 20 mg. His Martin catheter was removed this morning. We are waiting for him to void. Overall patient states he is feeling slightly stronger. He denies any significant shortness of breath. On examination today, blood pressure 103/71, heart rate 75 per minute. He is afebrile. EXAMINATION OF THE HEART: S1 and S2. EXAMINATION OF LUNGS: Bilateral breath sounds are heard. Decreased breath sounds at the bases. Abdomen is soft. Examination of lower extremities and upper extremities shows edema 2+ bilaterally. BRYOLOGIST EXAM: Grossly intact. Labs show sodium 131, potassium 4.9, chloride 104. CO2 is 21, BUN 28, creatinine 2.2, hemoglobin 7.7 g/dL. ASSESSMENT: 1. Acute kidney injury, acute tubular necrosis, currently nonoliguric. No nephrotoxic agents on board. Blood pressure is slightly on the lower side. Will continue to monitor and do a bladder scan if patient does not void. Martin catheter was removed this morning. 2. Hypervolemic hyponatremia. Expect improvement with increased oral intake, and patient may need more loop diuretics. 3. Anemia postoperatively. No active bleeding noted. Iron saturation on 10/06/2021 was 15.0. Ferritin was on the lower side as well. I will give a dose of IV iron if okayed by Cardiothoracic Surgery. PLAN: Check bladder scan if patient does not void. Repeat labs in a.m. x2 and consider loop diuretics. Increase oral intake. MMODL / IJN: [id number] /
--- NOTE | 2021-10-09 15:37 | CDI ---
Documentation Clarification Form Date: 10/09/2021 03:16:55 PM From: Luz Marina Sales CCS, CCDS Admit Date: 10/03/2021 03:37:00 PM Patient Name: Balwinder Collado Visit Number: [id number] Discharge Date: ATTENTION: The Clinical Documentation Specialists (CDI) and [facility] Coding Staff appreciate your assistance in clarifying documentation. Please respond to the clarification below the line at the bottom and electronically sign. The CDI & [facility] Coding staff will review the response and follow-up if needed. Please note: Queries are made part of the Legal Health Record. If you have any questions, please contact the author of this message via ITS. Dr. Reggie Bravo: Acute Hypoxic Respiratory Failure is documented in the 10/08 Medical Management Progress Note. Respiratory failure status post CABG on 10/07 is not documented elsewhere in the record. Additional clarification is requested regarding the relationship, if any, that exists between the diagnosis and the procedure. Patients Admitting/Preoperative Diagnosis per the 10/07 OR Note: Triple vessel CAD status post prior NC & PCI with stenting. Unstable Angina, Hypertension, Hyperlipidemia, NIDDM, Morbid Obesity (BMI 41.5), CKD (stage 3b, per Nephrology), CHLOE, Light tobacco smoker, Family history of premature CAD. Post-Operative Diagnosis: Same Procedure performed 10/07: Quadruple CABG, Exclusion of the Left Atrial Appendage w/Atriclip, Endoscopic harvesting of the Left Radial Artery & Left Greater Saphenous Vein, Intraoperative MITESH. History/Risk Factors per the 10/04 H/P: Asthma, CAD with previous coronary stenting, Angina, CHF, DM, GERD, Hyperlipidemia, Hypertension, NC, CKD, Sleep Apnea, Smoker. ADD/ADHD, Anxiety, Bipolar, Depression, PTSD. Family history of CAD. Clinical Indicators: Presented for elective Heart Catheterization on 10/03, diagnosed with Triple Vessel CAD, scheduled for CABG on 10/07. Successfully extubated on 10/07 to BiPAP, High Flow O2 6Lnc on 10/08, 6L nc on 10/08. 10/07 VS (after extubation): R 22, BP 114/63, PO 96 BiPAP 10/04 CXR: No acute cardiopulmonary process 10/07 CXR: Intubated postop: May be postsurgical atelectasis. 10/07 CXR: Interval extubation. Persistent mild cardiomegaly & mild central vascular congestion. Treatment 10/08 Post extubation: O2: BiPAP - 6Lnc; IV Albumin 250 mls/hr q1H, INH Duoneb q2H/prn, IV Amiodarone, IV Calcium gluconate 100 mls/hr x1/prn, IV Clevidipine 2 mls/hr q24h, IV Predex, IV Dextrose/Water w/Amiodarone q10m/prn, Heparin sq q8h, IV Apresoline q1H/prn, IV Insulin, IV Nitro 1.5 mls/hr q24H, What relationship, if any, exists between the diagnosis of Acute Hypoxic Respiratory Failure and the procedure: [ ] Acute Hypoxic Respiratory Failure is a complication of surgical procedure [ ] Acute Hypoxic Respiratory Failure is an expected outcome of the surgical procedure [ ] Acute Hypoxic Respiratory Failure is related to patients co-morbid condition(s), please specify: & is not a complication of the procedure [ ] Acute Hypoxic Respiratory Failure has been ruled out [ ] Other, please specify: [ ] Unable to determine (Template Last Revised: November 2020) Acute hypoxic respiratory failure expected outcome of the surgical procedure MTDD
[2021-10-09 17:42] LABS: Glucose,Whole Blood 189 mg/dL (75-99)
--- NOTE | 2021-10-09 17:58 | P.PN ---
Subjective Patient is resting comfortably in bed No chest discomfort no dizziness no lightheadedness He feels better now Pulse rate in the 70s afebrile Respirations normal Blood pressure 112/66. Millimeters of mercury Labs White count 10.9, hemoglobin 7.7 Sodium 131 potassium 4.9 BUN 28 and creatinine 2.2 Impression Triple-vessel coronary artery disease Status post four-vessel CABG Preserved LV systolic function Hypertension Dyslipidemia Type 2 diabetes Stage III chronic kidney disease line anemia, blood loss along with C daily Plan Continue antihypertensive therapy Continue amlodipine Continue dual antiplatelet therapy Continue beta blockers Continue atorvastatin Objective - Vital Signs Vital signs: Vital Signs Temp 98.0 F 10/09/21 16:00 Pulse 75 10/09/21 16:00 Resp 18 10/09/21 16:00 BP 112/66 10/09/21 16:00 Pulse Ox 94 L 10/09/21 16:00 Intake & Output 10/08/21 10/09/21 10/09/21 18:59 06:59 18:59 Intake Total 1391.006 826.170 449 Output Total 725 455 40 Balance 666.006 371.170 409 Weight 128.7 kg 131.2 kg Intake: IV 259.5 36 29 .9@ 20ml/hr 20 Nitroglycerin-D5w Pmx 50 1.5 mg In Dextrose/Water 1 250ml.bag @ 5 MCG/MIN 1.5 mls/hr IV .Q24H NAYELY Rx#: [id number] Sodium Chloride 0.9% 1, 100 000 ml @ 50 mls/hr IV . Q20H NAYELY Rx#:[id number] ceFAZolin 2 gm In Sodium 50 Chloride 0.9% 50 ml @ 100 mls/hr IVPB Q8HR NAYELY Rx# :[id number] co/ci 30 pressure bag 78 36 9 Intake, IV Titration 291.506 310.170 20 Amount Insulin Regular 100 unit 91.506 70.170 In Sodium Chloride 0.9% 100 ml @ Per Protocol IV .Q0M NAYELY Rx#:[id number] Sodium Chloride 0.9% 1, 200 240 20 000 ml @ 20 mls/hr IV . Q24H NAYELY Rx#:[id number] Oral 720 480 400 Tube Feeding 120 Output: Chest Tube Drainage 280 80 left pleural 90 30 ms x2 190 50 Urine 445 375 40 Other: Voiding Method Indwelling Catheter Indwelling Catheter Indwelling Catheter ABP, PAP, CO, CI - Last Documented Arterial Blood Pressure 104/51 Pulmonary Artery Pressure 23/11 Cardiac Output 7.4 Cardiac Index 3.1 - Labs CBC & Chem 7: 10/09/21 04:45 10/09/21 04:45 Labs: Abnormal Lab Results - Last 24 Hours (Table) 10/08/21 10/08/21 10/08/21 Range/Units 18:48 19:49 23:17 WBC (3.8-10.6) k/uL RBC (4.30-5.90) m/uL Hgb (13.0-17.5) gm/dL Hct (39.0-53.0) % Plt Count (150-450) k/uL Neutrophils # (1.3-7.7) k/uL Lymphocytes # (1.0-4.8) k/uL Sodium (137-145) mmol/L Carbon Dioxide (22-30) mmol/L BUN (9-20) mg/dL Creatinine (0.66-1.25) mg/dL Glucose (74-99) mg/dL POC Glucose (mg/dL) 183 H 162 H 127 H (75-99) mg/dL Calcium (8.4-10.2) mg/dL AST (17-59) U/L Total Protein (6.3-8.2) g/dL Albumin (3.5-5.0) g/dL 10/09/21 10/09/21 10/09/21 Range/Units 00:52 02:54 04:44 WBC (3.8-10.6) k/uL RBC (4.30-5.90) m/uL Hgb (13.0-17.5) gm/dL Hct (39.0-53.0) % Plt Count (150-450) k/uL Neutrophils # (1.3-7.7) k/uL Lymphocytes # (1.0-4.8) k/uL Sodium (137-145) mmol/L Carbon Dioxide (22-30) mmol/L BUN (9-20) mg/dL Creatinine (0.66-1.25) mg/dL Glucose (74-99) mg/dL POC Glucose (mg/dL) 118 H 133 H 140 H (75-99) mg/dL Calcium (8.4-10.2) mg/dL AST (17-59) U/L Total Protein (6.3-8.2) g/dL Albumin (3.5-5.0) g/dL 10/09/21 10/09/21 10/09/21 Range/Units 04:45 04:45 06:42 WBC 10.9 H (3.8-10.6) k/uL RBC 2.61 L (4.30-5.90) m/uL Hgb 7.7 L (13.0-17.5) gm/dL Hct 23.9 L (39.0-53.0) % Plt Count 129 L (150-450) k/uL Neutrophils # 9.4 H (1.3-7.7) k/uL Lymphocytes # 0.7 L (1.0-4.8) k/uL Sodium 131 L (137-145) mmol/L Carbon Dioxide 21 L (22-30) mmol/L BUN 28 H (9-20) mg/dL Creatinine 2.20 H (0.66-1.25) mg/dL Glucose 129 H (74-99) mg/dL POC Glucose (mg/dL) 147 H (75-99) mg/dL Calcium 8.0 L (8.4-10.2) mg/dL AST 61 H (17-59) U/L Total Protein 5.4 L (6.3-8.2) g/dL Albumin 2.9 L (3.5-5.0) g/dL 10/09/21 10/09/21 10/09/21 Range/Units 08:28 11:37 17:41 WBC (3.8-10.6) k/uL RBC (4.30-5.90) m/uL Hgb (13.0-17.5) gm/dL Hct (39.0-53.0) % Plt Count (150-450) k/uL Neutrophils # (1.3-7.7) k/uL Lymphocytes # (1.0-4.8) k/uL Sodium (137-145) mmol/L Carbon Dioxide (22-30) mmol/L BUN (9-20) mg/dL Creatinine (0.66-1.25) mg/dL Glucose (74-99) mg/dL POC Glucose (mg/dL) 182 H 215 H 189 H (75-99) mg/dL Calcium (8.4-10.2) mg/dL AST (17-59) U/L Total Protein (6.3-8.2) g/dL Albumin (3.5-5.0) g/dL
[2021-10-09 20:22] LABS: Glucose,Whole Blood 191 mg/dL (75-99)
--- NOTE | 2021-10-09 21:53 | P.PN ---
Progress Note - Text Progress Note Date: 10/09/21 Presenting complaint: Chest pain History of presenting complaint: This is a 51-year-old patient was chronic stable medical conditions include diabetes mellitus type 2, hypertension, CK D stage III, GERD, gout with known coronary artery disease and prior 5 stents. Patient had been present for 15 years really has not prolonged cold. 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 Patient presented to [facility] with chest hour left- sided precordial pain. Admitted with unstable angina. Put on IV heparin. Troponins were negative. Patient was transferred to [facility] in [place] for further intervention. Patient had a nuclear stress test that showed reversibility. Patient yesterday underwent cardiac catheterization was found to have triple-vessel disease. Cardiothoracic surgery's been consulted. Currently no chest pain. 2-D echo showed EF of 55-60% October 05: Sitting up in bed. No chest pain. Oral intake good. Consult nephrology. October 06: Comfortable. No chest pain no shortness of breath. Being scheduled for coronary bypass tomorrow. GPS Tether has been taken of a by the police deputy. PAMELA inhibitor held by nephrology. October 07: ICU. Ventilator 50/10. Quadruple coronary bypass. 2 mediastinal one chest tube. Drips include cleviprex, propofol, insulin, nitroglycerin. Sedated. Sinus rhythm. October 08: ICU: Patient been extubated. Sitting up in a chair. Chest tubes in place. On a clear liquid diet. Some shortness of breath. Sinus rhythm. Sinus rhythm. Martin catheter. Awake. Tired. Received IV amiodarone.. 6 L nasal cannula October 09: ICU. Feeling better. Tolerated liquid diet today. 4 L nasal cannula. Chest use a bit removed. Martin cath has been removed. Did walk about 100 feet. Patient is off the insulin drip. Will be moved off the ICU. Breathing better. Review of systems: Was done for constitutional, cardiovascular, GI, pulmonary. relevant finding as above Active Medications Acetaminophen (Acetaminophen Tab 325 Mg Tab) 650 mg PO Q4HR PRN PRN Reason: Fever and/ or Pain Hydrocodone Bitart/Acetaminophen (Hydrocodone/Apap 7.5-325mg 1 Each Tab) 1 each PO Q4HR PRN PRN Reason: Moderate Pain Albuterol/Ipratropium (Ipratropium-Albuterol 3 Ml Neb) 3 ml INHALATION RT-Q2H PRN PRN Reason: Shortness Of Breath Or Wheezing Albuterol/Ipratropium (Ipratropium-Albuterol 3 Ml Neb) 3 ml INHALATION RT-QID [facility] Last Admin: 10/09/21 19:24 Dose: Not Given Documented by: Amlodipine Besylate (Amlodipine 5 Mg Tab) 5 mg PO DAILY [facility] Last Admin: 10/09/21 08:20 Dose: 5 mg Documented by: Ascorbic Acid (Ascorbic Acid 500 Mg Tab) 500 mg PO BID-W/MEALS [facility] Last Admin: 10/09/21 17:50 Dose: 500 mg Documented by: Aspirin (Aspirin 325 Mg Tab) 325 mg PO DAILY [facility] Last Admin: 10/09/21 08:20 Dose: 325 mg Documented by: Atorvastatin Calcium (Atorvastatin 80 Mg Tab) 80 mg PO HS [facility] Last Admin: 10/08/21 20:03 Dose: 80 mg Documented by: Benzocaine/Menthol (Benzocaine/Menthol Lozeng 1 Each Lozenge) 1 each MUCOUS MEM Q2H PRN PRN Reason: Sore Throat Bisacodyl (Bisacodyl 10 Mg Supp) 10 mg RECTAL DAILY PRN PRN Reason: Constipation Clopidogrel Bisulfate (Clopidogrel 75 Mg Tab) 75 mg PO DAILY [facility] Last Admin: 10/09/21 08:20 Dose: 75 mg Documented by: Ferrous Sulfate (Ferrous Sulfate 325 Mg Tab) 325 mg PO BID-W/MEALS [facility] Last Admin: 10/09/21 17:50 Dose: 325 mg Documented by: Heparin Sodium (Porcine) (Heparin Sodium,Porcine/Pf 5,000 Unit/0.5 Ml Syringe) 5,000 unit SQ Q8HR [facility] Last Admin: 10/09/21 16:07 Dose: 5,000 unit Documented by: Amiodarone HCl 150 mg/ (Dextrose/Water) 103 mls @ 618 mls/hr IV .Q10M PRN; Protocol PRN Reason: A.FIB/FLUTTER Amiodarone HCl 360 mg/ (Dextrose/Water) 207.2 mls @ 34.533 mls/hr IV .Q6H PRN; Protocol PRN Reason: A.FIB/FLUTTER Amiodarone HCl 450 mg/ (Dextrose/Water) 250 mls @ 16.667 mls/hr IV .Q15H PRN; Protocol PRN Reason: A.FIB/FLUTTER Insulin Aspart (Insulin Aspart (Novolog) 100 Unit/Ml Vial) 0 unit SQ [id number] [facility]; Protocol Last Admin: 10/09/21 17:50 Dose: 2 unit Documented by: Insulin Detemir (Insulin Detemir (Levemir) 100 Unit/Ml Syr) 20 unit SQ DAILY@0700 [facility] Magnesium Hydroxide (Magnesium Hydroxide 2,400 Mg/10 Ml Cup) 2,400 mg PO BID PRN PRN Reason: Constipation Metoclopramide HCl (Metoclopramide 5 Mg/Ml 2 Ml Vial) 10 mg IVP Q4H PRN PRN Reason: Nausea And Vomiting Metoprolol Tartrate (Metoprolol Tartrate 50 Mg Tab) 50 mg PO BID [facility] Last Admin: 10/09/21 08:20 Dose: 50 mg Documented by: Miscellaneous Information (Potassium Replacement Protocol 1 Each Misc) 1 each MISCELLANE DAILY PRN; Protocol PRN Reason: Per Protocol Miscellaneous Information (Magnesium Replacement Protocol 1 Each Misc) 1 each MISCELLANE DAILY PRN; Protocol PRN Reason: Per Protocol Miscellaneous Information (Phosphorus Replacement Protoco 1 Each Misc) 1 each MISCELLANE DAILY PRN; Protocol PRN Reason: Per Protocol Mupirocin (Mupirocin 2% Oint 22 Gm Tube) 1 applic NASAL BID [facility]; Protocol Last Admin: 10/09/21 08:21 Dose: 1 applic Documented by: Ondansetron HCl (Ondansetron 4 Mg/2 Ml Vial) 4 mg IVP Q6HR PRN PRN Reason: Nausea And Vomiting Last Admin: 10/08/21 06:36 Dose: 4 mg Documented by: Pantoprazole Sodium (Pantoprazole 40 Mg Tablet) 40 mg PO [id number]-[id number] [facility] Last Admin: 10/09/21 06:38 Dose: 40 mg Documented by: Senna/Docusate Sodium (Sennosides-Docusate Sodium 1 Each Tab) 2 each PO HS [facility] Last Admin: 10/08/21 20:03 Dose: 2 each Documented by: Sodium Chloride (Sodium Chloride 0.9% Flush 10 Ml Syringe) 10 ml IV BID [facility] Last Admin: 10/09/21 08:21 Dose: 10 ml Documented by: Past medical history to include: Diabetes mellitus type 2, CAD with 5 stents, hypertension, CK D stage III, GERD, gout, obstructive sleep apnea, bipolar Social history: Patient average 3-4 packs a day for close to 40 years. Now a few cigarettes a day. Currently living at half a house. 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 Family history: Mesothelioma, heart disease Physical examination: VITAL SIGNS: 98.9, 75, 24, 103/71, 92% on 2 L GENERAL: , Sitting up in a chair awake. Chest tubes removed EYES: Pupils equal. Conjunctiva normal. HEENT: External appearance of nose and ears normal, oral cavity normal NECK: JVD unable to assess; masses not palpable. HEART: First and second heart sounds are normal; no edema. LUNGS: Respiratory rate increased; decreased breath sounds. ABDOMEN: Soft, nontender, liver spleen not palpable, no masses palpable. Martin catheter removed PSYCH: AO 3, mood and affect tired Dermatology: Inspection skin grossly intact. No obvious abnormality on palpation: Musculoskeletal: Inspection no clubbing cyanosis. Palpation: No obvious bony abnormality INVESTIGATIONS, reviewed in the clinical context: October 09: White count 10.9 hemoglobin 7.7 platelets 129 potassium 4.9. 28 creatinine 2.2 October 08: White count 8.7 hemoglobin 8.2 platelets 141 potassium 5.2. 24 creatinine 1.51 albumin 2.9. Chest x-ray film personally reviewed by me: No infiltrates. Telemetry: Personally reviewed by me sinus rhythm October 07: White count 5 hemoglobin 7.3 platelets 85 potassium 4.7 BUN 24 creatinine 1.34 October 06: Potassium 4.3 creatinine 1.75 Renal ultrasound: Difficult exam due to patient body habitus. October 05: Hemoglobin 11.5 creatinine 1.67 White count is 6.3 hemoglobin 11.9 platelets 189 sodium 139 potassium 4.6 BUN 28 creatinine 1.55 Accu-Cheks noted HbA1c 6.3 TSH 1.6 Acute hepatitis panel for A, B, and C: Not reactive Coronavirus [PCR]: Not detected 2-D echocardiogram: Moderate concentric LVH. EF 55-60% Chest x-ray film personally reviewed by me-cardiomegaly. Telemetry tracings personally reviewed by me: Sinus rhythm, T-wave changes Assessment and plan: -Quadruple coronary bypass. 4 triple-vessel CAD On October [address] Renee -Acute hypoxic respiratory failure Ventilator support: Extubated. Currently on 4 L nasal cannula -Coronary artery disease with prior 5 stents Aspirin , Lopressor 25 mg 3 times a day. Amlodipine 5 mg a day -COPD in a previous smoker DuoNeb 3 times a day -Hyperlipidemia Lipitor 80 mg daily at bedtime -Chronic kidney disease stage III likely from diabetic nephropathy and nephrosclerosis Follow renal function closely. nephrology consult -Normocytic anemia of chronic disease from CK D -Acute postprocedure blood loss anemia, expected from surgery Follow H&H -Acute dilutional thrombocytopenia -Diabetes mellitus type 2 on oral hypoglycemic Insulin drip-discontinued. Follow Accu-Cheks. Resume Glucotrol -Essential hypertension Amlodipine, Lopressor -Chronic gout Allopurinol 100 mg a day -Morbid obesity BMI 40.2 Chest tubes Martin catheter removed. Insulin drip discontinued.. Incentive spirometry. Resume Glucotrol. Doing better.
[2021-10-09] MEDS: ATORVASTATIN 80 MG TAB PO SCH (22:01)
[2021-10-09] MEDS: SENNOSIDES-DOCUSATE SODIUM 1 EACH TAB PO SCH (22:01)
[2021-10-09] MEDS: glipiZIDE 5 MG TAB PO SCH (22:08)
[2021-10-10 02:12] LABS: Glucose,Whole Blood 178 mg/dL (75-99)
[2021-10-10] MEDS: INSULIN ASPART (NovoLOG) 100 UNIT/ML VIAL SQ SCH ×5 (02:28→21:04)
[2021-10-10] MEDS: MUPIROCIN 2% OINT 22 GM TUBE NASAL SCH (02:49)
[2021-10-10 06:41] LABS: Glucose,Whole Blood 134 mg/dL (75-99)
[2021-10-10] MEDS: ASCORBIC ACID 500 MG TAB PO SCH ×2 (06:59→16:57)
[2021-10-10] MEDS: PANTOPRAZOLE 40 MG TABLET PO SCH (06:59)
[2021-10-10] MEDS: FERROUS SULFATE 325 MG TAB PO SCH ×2 (07:00→16:57)
[2021-10-10] MEDS: glipiZIDE 5 MG TAB PO SCH (07:00)
[2021-10-10] MEDS: INSULIN DETEMIR (LEVEMIR) 100 UNIT/ML SYR SQ SCH (07:00)
[2021-10-10] MEDS: METOPROLOL TARTRATE 50 MG TAB PO SCH ×2 (07:47→21:04)
[2021-10-10] MEDS: ASPIRIN 325 MG TAB PO SCH (07:48)
[2021-10-10] MEDS: amLODIPine 5 MG TAB PO SCH (07:48)
[2021-10-10] MEDS: CLOPIDOGREL 75 MG TAB PO SCH (07:48)
[2021-10-10] MEDS: HEPARIN SODIUM,PORCINE/PF 5,000 UNIT/0.5 ML SYRINGE SQ SCH ×2 (07:49→16:58)
[2021-10-10] MEDS ORDERED: HYDROcodone/APAP 7.5-325MG 1 EACH TAB PO PRN (07:54)
[2021-10-10] MEDS: IPRATROPIUM-ALBUTEROL 3 ML NEB INHALATION SCH ×4 (08:20→20:48)
[2021-10-10 08:24] LABS: Albumin 2.9 g/dL (3.5-5.0); Calcium 8.7 mg/dL (8.4-10.2); Potassium 5.5 mmol/L (3.5-5.1); Total Bilirubin 0.7 mg/dL (0.2-1.3); Total Protein 5.5 g/dL (6.3-8.2)
--- NOTE | 2021-10-10 08:51 | P.PN ---
Subjective Progress Note Date: 10/10/21 Principal diagnosis: Triple-vessel diffuse coronary artery disease, unstable angina, preserved left ventricular function. Previous medical history of coronary artery disease with previous myocardial infarction and previous stenting 5, hypertension, hyperlipidemia, [id number] diabetes, obesity, chronic kidney disease stage III, obstructive sleep apnea currently not using CPAP, anemia, gout, GERD, current light tobacco dependence, family history of premature coronary artery disease with both parents diagnosed before the age of 60, vaccinated and boosted against Covid POD #3 quadruple coronary artery bypass grafting using the left internal mammary artery to the left anterior descending artery, left radial artery from the aorta to the ramus intermedius artery, reverse saphenous vein graft from the aorta to the second obtuse marginal artery, reverse saphenous vein graft from the aorta to the early arising posterior descending artery, exclusion of the left atrial appendage using a 45 mm AtriClip, sternal plating using the cranium system, graft flow measurements using the Storwizestim system, endoscopic harvesting of the left radial artery, endoscopic harvesting of the left greater saphenous vein, intraoperative transesophageal echocardiogram and epi-aortic scanning Postoperative acute blood loss anemia, expected given hemodilution, cardiopulmonary bypass pump, and preoperative anemia The patient was seen and examined this morning sitting up in a recliner on the cardiac stepdown unit in no acute distress. Does complain of post surgical chest pain however he has been refusing to take any pain medication, has mild shortness of breath as he just returned from x-ray. Remains in sinus rhythm, hemodynamically stable. Actively attempting incentive spirometry use. Ambulating in the hallway with assistance. No other new concerns. Objective - Vital Signs Vital signs: Vital Signs Temp 99.1 F 10/10/21 07:45 Pulse 85 10/10/21 07:45 Resp 21 10/10/21 07:45 BP 107/57 10/10/21 07:45 Pulse Ox 99 10/10/21 07:45 Intake & Output 10/09/21 10/10/21 10/10/21 18:59 06:59 18:59 Intake Total 569 Output Total 40 300 Balance 529 -300 Intake: IV 29 .9@ 20ml/hr 20 pressure bag 9 Intake, IV Titration 20 Amount Sodium Chloride 0.9% 1, 20 000 ml @ 20 mls/hr IV . Q24H [facility] Rx#:[id number] Oral 520 Output: Urine 40 300 Other: Voiding Method Indwelling Catheter Indwelling Catheter # Voids 1 1 ABP, PAP, CO, CI - Last Documented Arterial Blood Pressure 104/51 Pulmonary Artery Pressure 23/11 Cardiac Output 7.4 Cardiac Index 3.1 - Exam CONSTITUTIONAL: Appears comfortable, cooperative, no acute distress RESPIRATORY: Lungs sounds diminished bilaterally. Respirations even, nonlabored. Currently on 4 L high flow nasal cannula with oxygen saturation 96%. Able to achieve 1000 mL on incentive spirometry. Strong productive cough. CARDIOVASCULAR: S1, S2 present. Regular rate and rhythm, sinus rhythm on telemetry. Sternum stable. Palpable peripheral pulses bilaterally. Generalized edema present. No calf pain or tenderness noted. Heart hugger in place with patient demonstrating appropriate use. Antiembolism stockings, SCDs present. GASTROINTESTINAL: Abdomen soft, nontender, nondistended. Active bowel sounds present 4 quadrants. Tolerating full liquids. GENITOURINARY: Martin discontinued yesterday, patient has voided INTEGUMENTARY: Skin is warm and dry with evidence of good perfusion. Anterior chest incision well approximated and covered with dry intact dressing. Left lower extremity EVH site well approximated without redness or drainage. Left radial artery harvest site well approximated without redness or drainage, left hand is warm and pink NEUROLOGIC: Cranial nerves II through XII intact MUSKULOSKELETAL: Able to move all extremities, strength equal bilaterally, able to ambulate with minimal assist PSYCHIATRIC: Alert and oriented to person place and time, appropriate affect, intact judgment and insight INVASIVE LINES AND TUBES: A/V epicardial pacemaker wires present, grounded. - Allied health notes Allied health notes reviewed: nursing - Labs CBC & Chem 7: 10/09/21 04:45 10/10/21 07:31 Labs: Abnormal Lab Results - Last 24 Hours (Table) 10/09/21 10/09/21 10/09/21 Range/Units 08:28 11:37 17:41 POC Glucose (mg/dL) 182 H 215 H 189 H (75-99) mg/dL 10/09/21 10/10/21 10/10/21 Range/Units 20:21 02:10 06:40 POC Glucose (mg/dL) 191 H 178 H 134 H (75-99) mg/dL - Imaging and Cardiology Chest x-ray: image reviewed Assessment and Plan Assessment: 1. Triple-vessel diffuse coronary artery disease with previous myocardial infarction and previous stenting 5, most recently 2008, status post four-vessel CABG 2. Preserved left ventricular function, EF 55-60% 3. Hypertension 4. Hyperlipidemia, treated, cholesterol 138, LDL 59.2, triglycerides 260 5. Vsc-nxvzlrt-quphdvhgx diabetes, hemoglobin A1c 6.3% 6. Obesity 7. Chronic kidney disease stage III 8. Obstructive sleep apnea currently not using CPAP 9. Anemia 10. Gout 11. GERD 12. Current light tobacco dependence, mild COPD with FEV1 62% of predicted 13. Family history of premature coronary artery disease with both parents diagnosed before the age of 60 14. Vaccinated and boosted against Covid 15. Postoperative acute blood loss anemia, expected Plan: 1. Continue aspirin, statin, Plavix, beta brandy therapy. Will increase beta brandy therapy as tolerated 2. Continue oral calcium channel brandy for radial artery spasm prophylaxis 3. Wean O2 as tolerated. Encourage incentive spirometry use. Bronchodilators, BiPAP per pulmonology 4. Increase activity, ambulate as tolerated. PT/OT/cardiac rehab following 5. Will monitor daily labs and x-rays. Electrolyte replacement per protocol. Avoid nephrotoxins, will leave decision regarding lasix, IV iron to nephrology 6. GI/DVT prophylaxis 7. Insulin management per primary care service 8. Pain control with current medication regimen. Avoid Toradol secondary to kidney disease 9. Will discontinue epicardial pacer wires this afternoon, patient to remain on bedrest for 1 hour post wire removal 10. Strict accurate intake and output. Instructed nursing to get PVR after void to make sure patient is emptying completely 11. Encourage smoking cessation 12. Will consult Dr. Cardoso for IPR at discharge 13. More recommendations to follow based on patient's progress Time with Patient: Greater than 30
[2021-10-10 09:43] LABS: Glucose,Whole Blood 134 mg/dL (75-99)
--- NOTE | 2021-10-10 10:26 | XR ---
EXAMINATION TYPE: XR chest 2V DATE OF EXAM: 10/10/2021 COMPARISON: 10/09/2021 INDICATION: Postcardiac surgery TECHNIQUE: Frontal and lateral views of the chest are obtained. FINDINGS: The heart size is moderately prominent. Sternotomy wires are in the midline. The pulmonary vasculature is normal. No suspicious focal consolidation is evident. IMPRESSION: 1. Cardiomegaly. 2. No acute pulmonary process.
[2021-10-10] MEDS: MIDODRINE 5 MG TAB PO SCH ×2 (10:47→17:00)
[2021-10-10] MEDS: SODIUM FERRIC GLUCONAT-SUCROSE 125 MG in SODIUM CHLORIDE 0.9% 100 ML IVPB SCH (10:47)
[2021-10-10 11:03] LABS: Basophils % (A) 0 %; Eosinophils # (A) 0.1 k/uL (0-0.7); Eosinophils % (A) 1 %; HCT 22.6 % (39.0-53.0); HGB 7.1 gm/dL (13.0-17.5); Hypochromasia Moderate; Lymphocytes % (A) 10 %; MCH 29.3 pg (25.0-35.0); MCHC 31.5 g/dL (31.0-37.0); MCV 93.1 fL (80.0-100.0); Mean Platelet Volume 8.2; Monocytes # (A) 0.5 k/uL (0-1.0); Monocytes % (A) 5 %; Neutrophils # (A) 8.1 k/uL (1.3-7.7); Neutrophils % (A) 82 %; Platelet Count 161 k/uL (150-450); RBC 2.43 m/uL (4.30-5.90); RDW 15.5 % (11.5-15.5); WBC 9.9 k/uL (3.8-10.6)
--- NOTE | 2021-10-10 11:25 | P.CONS ---
History of Present Illness - Chief Complaint Cardiac debility - History of Present Illness I had the opportunity to see patient for inpatient rehab consultation with regard to cardiac debility. Patient admitted to [facility] October 03 with chest pain and cardiac disease. Admitted to Dr. Bravo. Seen by cardiology and Dr. Aguilera. Patient did undergo three-vessel CABG in general [address] Renee. Note multiple chest x-rays followed as well as other mapping studies. Patient is started therapies. PT reports minimal assist bed mobility, transfers, gait total 96 feet, hand-held. OT reports moderate assistance for upper dressing, bathing and toileting and maximal assistance for lower dressing. Minimal assistance functional debility and transfer. Previous functional history as elicited from patient: 51-year-old right-handed male who is currently residing at [facility]. Describes meals, laundry, transportation provided. Describes independent with standing shower and gait without device. PCP Dr. corona. History of tobacco and denies alcohol. Review of Systems Review of systems: ENT: Denies sneezes or discharge. Eyes: Denies discharge or photophobia. Cardiac: Sternal chest discomfort. Pulmonary: shortness of breath. Gastrointestinal: Denies nausea, emesis, constipation, diarrhea. Genitourinary: Denies discharge or frequency. Musculoskeletal: Denies muscle or bone aches. Neurologic: Generalized weakness. Endocrine: Denies shakes or sweats. Oncology: Denies cancers. Dermatologic: Denies rash, itching, pruritus. ALLERGY/immunology: Denies sneezes, rashes. Past Medical History Past Medical History: Asthma, Coronary Artery Disease (CAD), Chest Pain / Angina, Heart Failure, Diabetes Mellitus, GERD/Reflux, Hyperlipidemia, Hypertension, Myocardial Infarction ([place]), Renal Disease, Sleep Apnea/CPAP/BIPAP Last Myocardial Infarction Date:: 2008 History of Any Multi-Drug Resistant Organisms: None Reported Past Surgical History: Adenoidectomy, Heart Catheterization With Stent, Tonsillectomy Additional Past Surgical History / Comment(s): cardiac stents x 5 Past Anesthesia/Blood Transfusion Reactions: Postoperative Nausea & Vomiting (PONV) Past Psychological History: ADD/ADHD, Anxiety, Bipolar, Depression, PTSD Smoking Status: Current every day smoker Past Alcohol Use History: None Reported Past Drug Use History: None Reported - Past Family History Father Family Medical History: Cancer, Coronary Artery Disease (CAD), Myocardial Infarction ([place]) Additional Family Medical History / Comment(s): at age 68 from mesothelioma, diagnosis of heart disease age of 60 Mother Family Medical History: Cancer, Coronary Artery Disease (CAD), Diabetes Mellitus, Liver Disease, Myocardial Infarction ([place]) Additional Family Medical History / Comment(s): from liver cancer, diagnosed with heart disease before the age of 60 Medications and Allergies Home Medications Medication Instructions Recorded Confirmed Type Allopurinol [Zyloprim] 100 mg PO DAILY 10/03/21 10/03/21 History Aspirin 325 mg PO DAILY 10/03/21 10/03/21 History Atorvastatin [Lipitor] 20 mg PO HS 10/03/21 10/03/21 History Isosorbide Mononitrate ER [Imdur] 60 mg PO DAILY 10/03/21 10/03/21 History Metoprolol Tartrate [Lopressor] 100 mg PO BID 10/03/21 10/03/21 History Omeprazole 20 mg PO AC-BRKFST 10/03/21 10/03/21 History Spironolactone 25 mg PO DAILY 10/03/21 10/03/21 History amLODIPine [Norvasc] 5 mg PO DAILY 10/03/21 10/03/21 History glipiZIDE [Glucotrol] 5 mg PO DAILY 10/03/21 10/03/21 History lisinopriL 40 mg PO DAILY 10/03/21 10/03/21 History Allergies Allergy/AdvReac Type Severity Reaction Status Date / Time Penicillins Allergy Swelling Verified 10/03/21 21:11 Sulfa (Sulfonamide Allergy Swelling Verified 10/03/21 21:11 Antibiotics) Physical Exam Vitals: Vital Signs Temp Pulse Pulse Resp BP BP Pulse Ox 10/10/21 09:35 76 18 96/64 96 10/10/21 08:30 88 10/10/21 08:20 84 10/10/21 07:45 99.1 F 85 21 107/57 99 10/10/21 04:00 98.1 F 101 H 18 108/62 96 10/10/21 00:00 98.4 F 93 16 125/51 97 10/09/21 20:00 99.0 F 86 16 109/68 98 10/09/21 16:00 98.0 F 75 18 112/66 94 L 10/09/21 15:00 73 17 10/09/21 14:00 73 17 95 10/09/21 13:00 71 18 93 L 10/09/21 12:00 74 13 99/55 95 Intake and Output 10/09/21 10/10/21 10/10/21 22:59 06:59 14:59 Intake Total 120 Output Total 0 300 300 Balance 120 -300 -300 Intake: Oral 120 Output: Urine 0 300 300 Other: Voiding Method Indwelling Catheter # Voids 1 Skin: Good color, texture, turgor. General: Obese build and comfortable appearance. Head: Normocephalic, atraumatic. Eyes: Symmetric. Pupils equal round. Ears: Symmetric. Hearing within normal limits. Mouth: Clear. Neck: Supple. Carotid without bruit. Cardiac: Regular rate and rhythm. Anatomy clean and dressed. Wearing harness. Lungs: Symmetric. Breathing comfortably. Abdomen: Soft active nontender. Extremities: Normal tone. Neurological: Mental status: Alert, cooperative, pleasant. Cranial nerves: Symmetric facial tone and trapezius. Motor: Active movement all 4 limbs and arms at best antigravity in legs poor. Sensation: Intact throughout. DTRs: Symmetric and equal throughout. Mobility: Required assistance for transfer from bed to bedside Amalia chair. Results CBC & Chem 7: 10/10/21 10:11 10/10/21 07:31 Labs: Abnormal Lab Results - Last 24 Hours (Table) 10/09/21 10/09/21 10/09/21 Range/Units 11:37 17:41 20:21 RBC (4.30-5.90) m/uL Hgb (13.0-17.5) gm/dL Hct (39.0-53.0) % Neutrophils # (1.3-7.7) k/uL Sodium (137-145) mmol/L Potassium (3.5-5.1) mmol/L Carbon Dioxide (22-30) mmol/L BUN (9-20) mg/dL Creatinine (0.66-1.25) mg/dL Glucose (74-99) mg/dL POC Glucose (mg/dL) 215 H 189 H 191 H (75-99) mg/dL Total Protein (6.3-8.2) g/dL Albumin (3.5-5.0) g/dL 10/10/21 10/10/21 10/10/21 Range/Units 02:10 06:40 07:31 RBC (4.30-5.90) m/uL Hgb (13.0-17.5) gm/dL Hct (39.0-53.0) % Neutrophils # (1.3-7.7) k/uL Sodium 132 L (137-145) mmol/L Potassium 5.5 H (3.5-5.1) mmol/L Carbon Dioxide 20 L (22-30) mmol/L BUN 47 H (9-20) mg/dL Creatinine 3.05 H (0.66-1.25) mg/dL Glucose 113 H (74-99) mg/dL POC Glucose (mg/dL) 178 H 134 H (75-99) mg/dL Total Protein 5.5 L (6.3-8.2) g/dL Albumin 2.9 L (3.5-5.0) g/dL 10/10/21 10/10/21 Range/Units 09:32 10:11 RBC 2.43 L (4.30-5.90) m/uL Hgb 7.1 L (13.0-17.5) gm/dL Hct 22.6 L (39.0-53.0) % Neutrophils # 8.1 H (1.3-7.7) k/uL Sodium (137-145) mmol/L Potassium (3.5-5.1) mmol/L Carbon Dioxide (22-30) mmol/L BUN (9-20) mg/dL Creatinine (0.66-1.25) mg/dL Glucose (74-99) mg/dL POC Glucose (mg/dL) 134 H (75-99) mg/dL Total Protein (6.3-8.2) g/dL Albumin (3.5-5.0) g/dL Assessment and Plan (1) Triple vessel coronary artery disease Current Visit: Yes Status: Acute Code(s): I25.10 - ATHSCL HEART DISEASE OF [place] CORONARY ARTERY W/O ANG PCTRS SNOMED Code(s): 592763631 Plan: Comments and plan: At this time PT and OT are ongoing. Patient currently with endurance issues and would not be ready for full inpatient rehab today. Will continue to follow with yourself and her review progress every a.m. beginning Wednesday.
[2021-10-10 11:34] LABS: Glucose,Whole Blood 101 mg/dL (75-99)
--- NOTE | 2021-10-10 12:26 | P.PN ---
Subjective HISTORY OF PRESENTING ILLNESS Patient is a pleasant 51-year-old male with history of coronary artery disease with prior myocardial infarction and stenting most recently in 2008, hypertension, hyperlipidemia, diabetes mellitus, COPD, obstructive sleep apnea, anemia, tobacco abuse who has been having intermittent chest pain and therefore underwent stress testing which was abnormal. He was transferred from [facility] and had heart catheterization which showed multivessel disease and therefore CABG workup was recommended. Echo performed revealed EF 55-60%. On 10/07/2021 patient underwent four-vessel CABG Patient seen and examined at bedside, no acute distress. He is working with physical therapy with some decreased activity tolerance. He was diaphoretic this morning. Did not eat that much of breakfast this morning. BP 96/64 HR 70s-80s he maintaining sinus mechanism, SpO2 96% on 4L nasal cannula. Blood sugar 134. He does have some postsurgical incision pain, was given and [place] this morning. Denies any shortness of breath. Labs reviewed, sodium 132, potassium 5.5, BUN 47, smoker and 3.0, WBC 9.9, hemoglobin 7.1, platelets 161 He's currently maintained on aspirin 325 mg daily, atorvastatin 80 mg nightly. Plavix 75 mg daily. amlodipine 5 mg daily, metoprolol tartrate 50 mg twice a day, dig and 5 mg twice a day PHYSICAL EXAMINATION Vital signs reviewed. CONSTITUTIONAL: No apparent distress. HEENT: Neck Supple. No JVD. CHEST EXAMINATION: Lungs are clear to auscultation. HEART EXAMINATION: Regular rate and rhythm. S1, S2 heard. No murmurs, gallops or rub. ABDOMEN: Soft, nontender. Positive bowel sounds. EXTREMITIES: no lower extremity edema and no calf tenderness. NEUROLOGIC EXAMINATION: Patient is awake, alert and oriented x3. ASSESSMENT Multivessel CAD Status post four-vessel CABG Coronary artery disease with previous myocardial infarction and previous stenting 5, most recently in 2008 Chest pain concerning for unstable angina Hypertension Hyperlipidemia Diabetes mellitus type 2 Tobacco abuse COPD Chronic kidney disease PLAN Continue aspirin, statin, Plavix, beta brandy Increase activity as tolerated. Encourage use of incentive spirometer Postoperative management per CT surgery. We will continue to follow. Further recommendations based on clinical course Objective - Vital Signs Vital signs: Vital Signs Temp 99.1 F 10/10/21 07:45 Pulse 80 10/10/21 11:31 Resp 18 10/10/21 09:35 BP 96/64 10/10/21 09:35 Pulse Ox 96 10/10/21 09:35 Intake & Output 10/09/21 10/10/21 10/10/21 18:59 06:59 18:59 Intake Total 569 Output Total 40 300 300 Balance 529 -300 -300 Intake: IV 29 .9@ 20ml/hr 20 pressure bag 9 Intake, IV Titration 20 Amount Sodium Chloride 0.9% 1, 20 000 ml @ 20 mls/hr IV . Q24H [facility] Rx#:[id number] Oral 520 Output: Urine 40 300 300 Other: Voiding Method Indwelling Catheter Indwelling Catheter # Voids 1 1 ABP, PAP, CO, CI - Last Documented Arterial Blood Pressure 104/51 Pulmonary Artery Pressure 23/11 Cardiac Output 7.4 Cardiac Index 3.1 - Labs CBC & Chem 7: 10/10/21 10:11 10/10/21 07:31 Labs: Abnormal Lab Results - Last 24 Hours (Table) 10/09/21 10/09/21 10/10/21 Range/Units 17:41 20:21 02:10 RBC (4.30-5.90) m/uL Hgb (13.0-17.5) gm/dL Hct (39.0-53.0) % Neutrophils # (1.3-7.7) k/uL Sodium (137-145) mmol/L Potassium (3.5-5.1) mmol/L Carbon Dioxide (22-30) mmol/L BUN (9-20) mg/dL Creatinine (0.66-1.25) mg/dL Glucose (74-99) mg/dL POC Glucose (mg/dL) 189 H 191 H 178 H (75-99) mg/dL Total Protein (6.3-8.2) g/dL Albumin (3.5-5.0) g/dL 10/10/21 10/10/21 10/10/21 Range/Units 06:40 07:31 09:32 RBC (4.30-5.90) m/uL Hgb (13.0-17.5) gm/dL Hct (39.0-53.0) % Neutrophils # (1.3-7.7) k/uL Sodium 132 L (137-145) mmol/L Potassium 5.5 H (3.5-5.1) mmol/L Carbon Dioxide 20 L (22-30) mmol/L BUN 47 H (9-20) mg/dL Creatinine 3.05 H (0.66-1.25) mg/dL Glucose 113 H (74-99) mg/dL POC Glucose (mg/dL) 134 H 134 H (75-99) mg/dL Total Protein 5.5 L (6.3-8.2) g/dL Albumin 2.9 L (3.5-5.0) g/dL 10/10/21 10/10/21 Range/Units 10:11 11:32 RBC 2.43 L (4.30-5.90) m/uL Hgb 7.1 L (13.0-17.5) gm/dL Hct 22.6 L (39.0-53.0) % Neutrophils # 8.1 H (1.3-7.7) k/uL Sodium (137-145) mmol/L Potassium (3.5-5.1) mmol/L Carbon Dioxide (22-30) mmol/L BUN (9-20) mg/dL Creatinine (0.66-1.25) mg/dL Glucose (74-99) mg/dL POC Glucose (mg/dL) 101 H (75-99) mg/dL Total Protein (6.3-8.2) g/dL Albumin (3.5-5.0) g/dL
[2021-10-10] MEDS ORDERED: LACTULOSE 20 GM/30 ML CUP PO ONE (14:22)
--- NOTE | 2021-10-10 14:37 | P.PN ---
Subjective Progress Note Date: 10/10/21 Principal diagnosis: Multivessel coronary artery disease On 10/10/2021 patient seen in follow-up on selective care unit, today's postoperative day #3, status post four-vessel coronary artery bypass grafting on 10/07/2021. Patient is sitting up in the recliner, breathing comfortably, he is currently on 4 L of oxygen pulse ox of 96%, denies any specific complaints, he was able to ambulate, he does get short of breath with exertion, he looks generally swollen, but no acute distress, his chest tubes have been discontinued, his IVs have been discontinued, patient is currently hep-locked, he is in sinus mechanism, hemodynamically has been stable, today's chest x-ray showing cardiomegaly, no acute pulmonary process. Blood pressure is stable. His incisions midsternal, his chest tube insertion sites, and leg incision sites are clean dry and intact. Today's labs have been reviewed, his white count is 9.9, hemoglobin is 7.1, and patient is being started on iron supplements, sodium is 132, potassium is 5.5, CO2 is 20, BUN is 47, creatinine is 3.05. Objective - Vital Signs Vital signs: Vital Signs Temp 98.1 F 10/10/21 12:20 Pulse 81 10/10/21 12:20 Resp 20 10/10/21 12:20 BP 116/63 10/10/21 12:20 Pulse Ox 96 10/10/21 12:20 Intake & Output 10/09/21 10/10/21 10/10/21 18:59 06:59 18:59 Intake Total 569 480 Output Total 40 300 300 Balance 529 -300 180 Intake: IV 29 .9@ 20ml/hr 20 pressure bag 9 Intake, IV Titration 20 Amount Sodium Chloride 0.9% 1, 20 000 ml @ 20 mls/hr IV . Q24H [facility] Rx#:[id number] Oral 520 480 Output: Urine 40 300 300 Other: Voiding Method Indwelling Catheter Indwelling Catheter # Voids 1 1 ABP, PAP, CO, CI - Last Documented Arterial Blood Pressure 104/51 Pulmonary Artery Pressure 23/11 Cardiac Output 7.4 Cardiac Index 3.1 - Exam GENERAL EXAM: Alert, comfortable in no apparent distress. HEAD: Normocephalic/atraumatic. EYES: Normal reaction of pupils, equal size. Conjunctiva pink, sclera white. NOSE: Clear with pink turbinates. THROAT: No erythema or exudates. NECK: No masses, no JVD, no thyroid enlargement, no adenopathy. CHEST: No chest wall deformity. Symmetrical expansion. Midsternal incision is clean dry and intact, chest tube sites are clean dry and intact LUNGS: Equal air entry with no crackles, wheeze, rhonchi or dullness. CVS: Regular rate and rhythm, normal S1 and S2, no gallops, no murmurs, no rubs ABDOMEN: Soft, nontender. No hepatosplenomegaly, normal bowel sounds, no guarding or rigidity. EXTREMITIES: No clubbing, nonpitting edema involving upper and lower extremities, no cyanosis, 2+ pulses and upper and lower extremities. MUSCULOSKELETAL: Muscle strength and tone normal. SPINE: No scoliosis or deformity SKIN: No rashes, leg incisions are clean dry and intact CENTRAL NERVOUS SYSTEM: Alert and oriented -3. No focal deficits, tone is normal in all 4 extremities. PSYCHIATRIC: Alert and oriented -3. Appropriate affect. Intact judgment and insight. - Labs CBC & Chem 7: 10/10/21 10:11 10/10/21 07:31 Labs: Abnormal Lab Results - Last 24 Hours (Table) 10/09/21 10/09/21 10/10/21 Range/Units 17:41 20:21 02:10 RBC (4.30-5.90) m/uL Hgb (13.0-17.5) gm/dL Hct (39.0-53.0) % Neutrophils # (1.3-7.7) k/uL Sodium (137-145) mmol/L Potassium (3.5-5.1) mmol/L Carbon Dioxide (22-30) mmol/L BUN (9-20) mg/dL Creatinine (0.66-1.25) mg/dL Glucose (74-99) mg/dL POC Glucose (mg/dL) 189 H 191 H 178 H (75-99) mg/dL Total Protein (6.3-8.2) g/dL Albumin (3.5-5.0) g/dL 10/10/21 10/10/21 10/10/21 Range/Units 06:40 07:31 09:32 RBC (4.30-5.90) m/uL Hgb (13.0-17.5) gm/dL Hct (39.0-53.0) % Neutrophils # (1.3-7.7) k/uL Sodium 132 L (137-145) mmol/L Potassium 5.5 H (3.5-5.1) mmol/L Carbon Dioxide 20 L (22-30) mmol/L BUN 47 H (9-20) mg/dL Creatinine 3.05 H (0.66-1.25) mg/dL Glucose 113 H (74-99) mg/dL POC Glucose (mg/dL) 134 H 134 H (75-99) mg/dL Total Protein 5.5 L (6.3-8.2) g/dL Albumin 2.9 L (3.5-5.0) g/dL 10/10/21 10/10/21 Range/Units 10:11 11:32 RBC 2.43 L (4.30-5.90) m/uL Hgb 7.1 L (13.0-17.5) gm/dL Hct 22.6 L (39.0-53.0) % Neutrophils # 8.1 H (1.3-7.7) k/uL Sodium (137-145) mmol/L Potassium (3.5-5.1) mmol/L Carbon Dioxide (22-30) mmol/L BUN (9-20) mg/dL Creatinine (0.66-1.25) mg/dL Glucose (74-99) mg/dL POC Glucose (mg/dL) 101 H (75-99) mg/dL Total Protein (6.3-8.2) g/dL Albumin (3.5-5.0) g/dL Assessment and Plan Plan: Assessment: #1. Symptomatic multivessel coronary artery disease, status post 4 vessel coronary artery bypass surgery on 10/07/2021. #2. Routine post thoracotomy ventilator management, patient is doing very well, he is currently on 4 L of oxygen, chest x-ray is clear #3. History of coronary artery disease with previous myocardial infarction and stenting 5 #4. History of essential hypertension #6. Hyperlipidemia #7. Diabetes mellitus type 2 #8. Suspect COPD, preop FEV1 was 62% of predicted #9. Sleep apnea syndrome not using CPAP therapy, his BMI is 41.5 kg/m #10. History of anemia #11. Acute on chronic kidney disease, related to ATN, today's creatinine is up to 3.05 #12. Gout #13. Patient has received his COVID-19 oxygenation including booster shot Plan: Chest x-ray has been reviewed showing no acute process Continue encouraging deep breathing and coughing and incentive spirometer use Renal function continues to worsen Nephrology is on the case Patient seems to be in no acute respiratory distress Chest tubes have been discontinued, hemodynamically stable, in sinus mechanism No acute events overnight Remains on, addition of aspirin, Plavix beta blockers Further recommendations from nephrology We'll continue to follow I performed a history & physical examination of the patient and discussed their management with my nurse practitioner, Michelle Cadet. I reviewed the nurse pra ctitioner's note and agree with the documented findings and plan of care. Lung sounds are positive for dim breath sounds throughout the lung mackey. The findings and the impression was discussed with the patient. I attest to the documentation by the nurse practitioner. Time with Patient: Less than 30
[2021-10-10 16:22] LABS: Glucose,Whole Blood 143 mg/dL (75-99)
[2021-10-10] MEDS: ACETAMINOPHEN TAB 325 MG TAB PO PRN (16:57)
--- NOTE | 2021-10-10 17:25 | P.PN ---
Progress Note - Text Progress Note Date: 10/10/21 Presenting complaint: Chest pain History of presenting complaint: This is a 51-year-old patient was chronic stable medical conditions include diabetes mellitus type 2, hypertension, CK D stage III, GERD, gout with known coronary artery disease and prior 5 stents. Patient had been present for 15 years really has not prolonged cold. [facility] Patient presented to [facility] with chest hour left- sided precordial pain. Admitted with unstable angina. Put on IV heparin. Troponins were negative. Patient was transferred to [facility] in [place] for further intervention. Patient had a nuclear stress test that showed reversibility. Patient yesterday underwent cardiac catheterization was found to have triple-vessel disease. Cardiothoracic surgery's been consulted. Currently no chest pain. 2-D echo showed EF of 55-60% October 05: Sitting up in bed. No chest pain. Oral intake good. Consult nephrology. October 06: Comfortable. No chest pain no shortness of breath. Being scheduled for coronary bypass tomorrow. GPS Tether has been taken of a by the police deputy. PAMELA inhibitor held by nephrology. October 07: ICU. Ventilator 50/10. Quadruple coronary bypass. 2 mediastinal one chest tube. Drips include cleviprex, propofol, insulin, nitroglycerin. Sedated. Sinus rhythm. October 08: ICU: Patient been extubated. Sitting up in a chair. Chest tubes in place. On a clear liquid diet. Some shortness of breath. Sinus rhythm. Sinus rhythm. Martin catheter. Awake. Tired. Received IV amiodarone.. 6 L nasal cannula October 09: ICU. Feeling better. Tolerated liquid diet today. 4 L nasal cannula. Chest use a bit removed. Martin cath has been removed. Did walk about 100 feet. Patient is off the insulin drip. Will be moved off the ICU. Breathing better. October 10: Moved out of the ICU. Some shortness of breath. Eating fair. Did walk a bit. Up in chair. 4 L nasal cannula. Review of systems: Was done for constitutional, cardiovascular, GI, pulmonary. relevant finding as above Active Medications Acetaminophen (Acetaminophen Tab 325 Mg Tab) 650 mg PO Q4HR PRN PRN Reason: Fever and/ or Pain Last Admin: 10/10/21 16:57 Dose: 650 mg Documented by: Albuterol/Ipratropium (Ipratropium-Albuterol 3 Ml Neb) 3 ml INHALATION RT-Q2H PRN PRN Reason: Shortness Of Breath Or Wheezing Albuterol/Ipratropium (Ipratropium-Albuterol 3 Ml Neb) 3 ml INHALATION RT-QID [facility] Last Admin: 10/10/21 15:42 Dose: 3 ml Documented by: Amlodipine Besylate (Amlodipine 5 Mg Tab) 5 mg PO DAILY [facility] Last Admin: 10/10/21 07:48 Dose: 5 mg Documented by: Ascorbic Acid (Ascorbic Acid 500 Mg Tab) 500 mg PO BID-W/MEALS [facility] Last Admin: 10/10/21 16:57 Dose: 500 mg Documented by: Aspirin (Aspirin 325 Mg Tab) 325 mg PO DAILY [facility] Last Admin: 10/10/21 07:48 Dose: 325 mg Documented by: Atorvastatin Calcium (Atorvastatin 80 Mg Tab) 80 mg PO HS [facility] Last Admin: 10/09/21 22:01 Dose: 80 mg Documented by: Benzocaine/Menthol (Benzocaine/Menthol Lozeng 1 Each Lozenge) 1 each MUCOUS MEM Q2H PRN PRN Reason: Sore Throat Bisacodyl (Bisacodyl 10 Mg Supp) 10 mg RECTAL DAILY PRN PRN Reason: Constipation Clopidogrel Bisulfate (Clopidogrel 75 Mg Tab) 75 mg PO DAILY [facility] Last Admin: 10/10/21 07:48 Dose: 75 mg Documented by: Ferrous Sulfate (Ferrous Sulfate 325 Mg Tab) 325 mg PO BID-W/MEALS [facility] Last Admin: 10/10/21 16:57 Dose: 325 mg Documented by: Glipizide (Glipizide 5 Mg Tab) 5 mg PO AC-BRKFST [facility] Last Admin: 10/10/21 07:00 Dose: 5 mg Documented by: Heparin Sodium (Porcine) (Heparin Sodium,Porcine/Pf 5,000 Unit/0.5 Ml Syringe) 5,000 unit SQ Q8HR [facility] Last Admin: 10/10/21 16:58 Dose: 5,000 unit Documented by: Amiodarone HCl 150 mg/ (Dextrose/Water) 103 mls @ 618 mls/hr IV .Q10M PRN; Protocol PRN Reason: A.FIB/FLUTTER Amiodarone HCl 360 mg/ (Dextrose/Water) 207.2 mls @ 34.533 mls/hr IV .Q6H PRN; Protocol PRN Reason: A.FIB/FLUTTER Amiodarone HCl 450 mg/ (Dextrose/Water) 250 mls @ 16.667 mls/hr IV .Q15H PRN; Protocol PRN Reason: A.FIB/FLUTTER Ferric Sodium Gluconate 125 mg (/ Sodium Chloride) 110 mls @ 100 mls/hr IVPB DAILY [facility] Stop: 10/12/21 10:31 Last Admin: 10/10/21 10:47 Dose: 100 mls/hr Documented by: Insulin Aspart (Insulin Aspart (Novolog) 100 Unit/Ml Vial) 0 unit SQ [id number] [facility]; Protocol Last Admin: 10/10/21 16:58 Dose: 1 unit Documented by: Insulin Detemir (Insulin Detemir (Levemir) 100 Unit/Ml Syr) 20 unit SQ DAILY@07 00 [facility] Last Admin: 10/10/21 07:00 Dose: 20 unit Documented by: Magnesium Hydroxide (Magnesium Hydroxide 2,400 Mg/10 Ml Cup) 2,400 mg PO BID PRN PRN Reason: Constipation Last Admin: 10/10/21 07:49 Dose: 2,400 mg Documented by: Metoclopramide HCl (Metoclopramide 5 Mg/Ml 2 Ml Vial) 10 mg IVP Q4H PRN PRN Reason: Nausea And Vomiting Last Admin: 10/10/21 07:49 Dose: 10 mg Documented by: Metoprolol Tartrate (Metoprolol Tartrate 50 Mg Tab) 50 mg PO BID [facility] Last Admin: 10/10/21 07:47 Dose: 50 mg Documented by: Midodrine (Midodrine 5 Mg Tab) 5 mg PO AC-BID [facility] Last Admin: 10/10/21 17:00 Dose: 5 mg Documented by: Miscellaneous Information (Potassium Replacement Protocol 1 Each Misc) 1 each MISCELLANE DAILY PRN; Protocol PRN Reason: Per Protocol Miscellaneous Information (Magnesium Replacement Protocol 1 Each Misc) 1 each MISCELLANE DAILY PRN; Protocol PRN Reason: Per Protocol Miscellaneous Information (Phosphorus Replacement Protoco 1 Each Misc) 1 each MISCELLANE DAILY PRN; Protocol PRN Reason: Per Protocol Ondansetron HCl (Ondansetron 4 Mg/2 Ml Vial) 4 mg IVP Q6HR PRN PRN Reason: Nausea And Vomiting Last Admin: 10/08/21 06:36 Dose: 4 mg Documented by: Pantoprazole Sodium (Pantoprazole 40 Mg Tablet) 40 mg PO AC-BRKFST [facility] Last Admin: 10/10/21 06:59 Dose: 40 mg Documented by: Senna/Docusate Sodium (Sennosides-Docusate Sodium 1 Each Tab) 2 each PO HS [facility] Last Admin: 10/09/21 22:01 Dose: 2 each Documented by: Sodium Chloride (Sodium Chloride 0.9% Flush 10 Ml Syringe) 10 ml IV BID [facility] Last Admin: 10/10/21 07:49 Dose: 10 ml Documented by: Past medical history to include: Diabetes mellitus type 2, CAD with 5 stents, hypertension, CK D stage III, GERD, gout, obstructive sleep apnea, bipolar Social history: Patient average 3-4 packs a day for close to 40 years. Now a few cigarettes a day. Currently living at half a house. [facility] last 15 years. Family history: Mesothelioma, heart disease Physical examination: VITAL SIGNS: 97.5, 88, 18, 105/57, 95% on 4 L GENERAL: , Sitting up in a chair awake. EYES: Pupils equal. Conjunctiva normal. HEENT: External appearance of nose and ears normal, oral cavity normal NECK: JVD unable to assess; masses not palpable. HEART: First and second heart sounds are normal; no edema. LUNGS: Respiratory rate increased; decreased breath sounds. ABDOMEN: Soft, nontender, liver spleen not palpable, no masses palpable. PSYCH: AO 3, mood and affect tired Dermatology: Inspection skin grossly intact. No obvious abnormality on palpation: Musculoskeletal: Inspection no clubbing cyanosis. Palpation: No obvious bony abnormality INVESTIGATIONS, reviewed in the clinical context: October 10: White count 9.9 hemoglobin 7.1 platelets 161 sodium 132 potassium 5.5. 47 creatinine 3.05 October 09: White count 10.9 hemoglobin 7.7 platelets 129 potassium 4.9. 28 creatinine 2.2 October 08: White count 8.7 hemoglobin 8.2 platelets 141 potassium 5.2. 24 crea tinine 1.51 albumin 2.9. Chest x-ray film personally reviewed by me: No infiltrates. Telemetry: Personally reviewed by me sinus rhythm October 07: White count 5 hemoglobin 7.3 platelets 85 potassium 4.7 BUN 24 creatinine 1.34 October 06: Potassium 4.3 creatinine 1.75 Renal ultrasound: Difficult exam due to patient body habitus. October 05: Hemoglobin 11.5 creatinine 1.67 White count is 6.3 hemoglobin 11.9 platelets 189 sodium 139 potassium 4.6 BUN 28 creatinine 1.55 Accu-Cheks noted HbA1c 6.3 TSH 1.6 Acute hepatitis panel for A, B, and C: Not reactive Coronavirus [PCR]: Not detected 2-D echocardiogram: Moderate concentric LVH. EF 55-60% Chest x-ray film personally reviewed by me-cardiomegaly. Telemetry tracings personally reviewed by me: Sinus rhythm, T-wave changes Assessment and plan: -Quadruple coronary bypass. 4 triple-vessel CAD On October [address] Renee -Acute hypoxic respiratory failure Ventilator support: Extubated. Currently on 4 L nasal cannula -Coronary artery disease with prior 5 stents Aspirin , Lopressor 25 mg 3 times a day. Amlodipine 5 mg a day -COPD in a previous smoker DuoNeb 3 times a day -Hyperlipidemia Lipitor 80 mg daily at bedtime -Chronic kidney disease stage III likely from diabetic nephropathy and nephrosclerosis Follow renal function closely. nephrology consult -Normocytic anemia of chronic disease from CK D -Acute postprocedure blood loss anemia, expected from surgery Follow H&H. Received IV Ferrlecit 125 mg -Acute dilutional thrombocytopenia -Diabetes mellitus type 2 on oral hypoglycemic Insulin drip-discontinued. Follow Accu-Cheks with sliding scale. Glucotrol -Essential hypertension Amlodipine, Lopressor -Chronic gout Allopurinol 100 mg a day -Morbid obesity BMI 40.2 Given 125 mg of IV Ferrlecit. Other medications to continue. Incentive spirometry. Activity as tolerated.
--- NOTE | 2021-10-10 18:20 | PN ---
PROGRESS NOTE Patient is seen for followup for acute kidney injury. Patient's renal function has deteriorated postoperatively. His creatinine is up to 3.0 today. Urine output had been borderline, 20 to 40 mL/hour. Martin catheter was removed. Patient did void about 300 mL around midnight, and this morning he had about 350 mL of urine on bladder scan. He did void later on this morning. Blood pressure has been low. Patient did receive [place] this morning. This is currently on hold. His systolic blood pressure was in the 90s and now it is up to 116. He was also given one dose of midodrine. Overall, patient denies any significant complaints. There is no active bleeding noted. On examination this morning, blood pressure 96/64, heart rate 76 per minute. He is afebrile. EXAMINATION OF THE HEART: S1 and S2. EXAMINATION OF LUNGS: Bilateral breath sounds are heard. Abdomen is soft. Examination of lower extremities shows edema 2+ upper and lower extremities. PSYCHOLOGICAL STRESS EVALUATOR EXAM: Grossly intact. Labs show hemoglobin 7.1 today. Sodium 132, potassium 5.5, BUN 47, creatinine 3.0. ASSESSMENT: 1. Acute kidney injury, acute tubular necrosis, mostly hemodynamic. Blood pressure has been on the lower side. No evidence of significant retention. Patient had about 347 mL of urine on bladder scan. He did void 300 mL after that. I will add midodrine. Patient's hemoglobin was also low and he was iron-deficient. For this he will be started on IV iron. 2. Hypervolemia. Add IV Lasix x1 today. Depending on the urine output later on today, this will also help with the mild hyperkalemia. 3. Hyperkalemia associated with acute kidney injury. No significant urine retention noted. 4. Status post coronary artery bypass surgery. 5. Chronic kidney disease, NKF stage 3A to 3B with baseline creatinine 1.5 to 1.7 mg/dL. PLAN: Add midodrine. Add IV iron. Add IV Lasix later on today, depending on his urine output. Repeat labs in a.m. [id number] / YOKON: [id number] /
[2021-10-10 20:30] LABS: Glucose,Whole Blood 162 mg/dL (75-99)
[2021-10-10] MEDS: SENNOSIDES-DOCUSATE SODIUM 1 EACH TAB PO SCH (21:04)
[2021-10-10] MEDS: ATORVASTATIN 80 MG TAB PO SCH (21:09)
[2021-10-11] MEDS: HEPARIN SODIUM,PORCINE/PF 5,000 UNIT/0.5 ML SYRINGE SQ SCH ×4 (00:37→23:02)
[2021-10-11 03:32] LABS: Glucose,Whole Blood 121 mg/dL (75-99)
[2021-10-11] MEDS: INSULIN ASPART (NovoLOG) 100 UNIT/ML VIAL SQ SCH ×5 (04:19→20:45)
[2021-10-11 06:19] LABS: Glucose,Whole Blood 133 mg/dL (75-99)
[2021-10-11] MEDS: PANTOPRAZOLE 40 MG TABLET PO SCH (06:45)
[2021-10-11] MEDS: glipiZIDE 5 MG TAB PO SCH (06:45)
[2021-10-11] MEDS: ASCORBIC ACID 500 MG TAB PO SCH ×2 (06:45→17:29)
[2021-10-11] MEDS: MIDODRINE 5 MG TAB PO SCH ×2 (06:45→17:26)
[2021-10-11] MEDS: FERROUS SULFATE 325 MG TAB PO SCH ×2 (06:45→17:29)
--- NOTE | 2021-10-11 07:02 | XR ---
EXAMINATION TYPE: XR chest 2V DATE OF EXAM: 10/11/2021 COMPARISON: 10/10/2021 HISTORY: Postcardiac surgery TECHNIQUE: Frontal and lateral views of the chest are obtained. FINDINGS: There are median sternotomy wires. The lungs are clear consolidative or interstitial opacity. There is a small left pleural effusion. There is no pneumothorax. The heart size is prominent but there is no pulmonary vascular congestion. The osseous structures are intact IMPRESSION: Mild cardiomegaly without pulmonary vascular congestion. Small left pleural effusion.
[2021-10-11] MEDS: IPRATROPIUM-ALBUTEROL 3 ML NEB INHALATION SCH ×4 (08:11→20:02)
[2021-10-11 09:43] LABS: HCT 25.8 % (39.0-53.0); HGB 7.8 gm/dL (13.0-17.5); Hypochromasia Marked; MCH 29.2 pg (25.0-35.0); MCHC 30.4 g/dL (31.0-37.0); MCV 96.3 fL (80.0-100.0); Mean Platelet Volume 7.8; Platelet Count 187 k/uL (150-450); RBC 2.68 m/uL (4.30-5.90); RDW 15.8 % (11.5-15.5); WBC 8.1 k/uL (3.8-10.6)
[2021-10-11] MEDS: ASPIRIN 325 MG TAB PO SCH (09:44)
[2021-10-11] MEDS: amLODIPine 5 MG TAB PO SCH (09:44)
[2021-10-11] MEDS: CLOPIDOGREL 75 MG TAB PO SCH (09:44)
[2021-10-11] MEDS: METOPROLOL TARTRATE 50 MG TAB PO SCH (09:44)
[2021-10-11] MEDS: INSULIN DETEMIR (LEVEMIR) 100 UNIT/ML SYR SQ SCH (09:45)
[2021-10-11] MEDS: SODIUM FERRIC GLUCONAT-SUCROSE 125 MG in SODIUM CHLORIDE 0.9% 100 ML IVPB SCH (09:45)
[2021-10-11] MEDS: ACETAMINOPHEN TAB 325 MG TAB PO PRN (09:46)
[2021-10-11 09:55] LABS: Calcium 8.8 mg/dL (8.4-10.2); Potassium 4.8 mmol/L (3.5-5.1)
[2021-10-11] MEDS ORDERED: FUROSEMIDE 10 MG/ML 4 ML VIAL IV STA (09:57)
--- NOTE | 2021-10-11 10:46 | P.PN ---
Subjective Progress Note Date: 10/11/21 Principal diagnosis: Triple-vessel diffuse coronary artery disease, unstable angina, preserved left ventricular function. Past medical history significant for coronary artery dise ase with previous myocardial infarction and previous stenting 5, hypertension, hyperlipidemia, ssl-[id number] diabetes, obesity, chronic kidney disease stage III, obstructive sleep apnea currently not using CPAP, anemia, gout, GERD, current light tobacco dependence, family history of premature coronary artery disease with both parents diagnosed before the age of 60, vaccinated and boosted against Covid. POD #4 quadruple coronary artery bypass grafting using the left internal mammary artery to the left anterior descending artery, left radial artery from the aorta to the ramus intermedius artery, reverse saphenous vein graft from the aorta to the second obtuse marginal artery, reverse saphenous vein graft from the aorta to the early arising posterior descending artery, exclusion of the left atrial appendage using a 45 mm AtriClip, sternal plating using the cranium system, graft flow measurements using the Medistim system, endoscopic harvesting of the left radial artery, endoscopic harvesting of the left greater saphenous vein, intraoperative transesophageal echocardiogram and epi-aortic scanning. Postoperative acute blood loss anemia, expected given hemodilution, cardiopulm onary bypass pump, and preoperative anemia. The patient was seen today 10/11/2021 at his bedside on the cardiac stepdown unit. Currently he is sitting up to the bedside chair, is awake, alert and or iented 3 and is in no acute distress. The patient is teary-eyed this morning and reports he feels depressed. Denies any complaints of pain or shortness of breath at this time. Oxygen saturation are 98% on 2 L nasal cannula. Achieving 1500 mL on his incentive spirometry with encouragement. Remote telemetry is showing normal sinus rhythm heart rate 96 BPM. He reports he has been up ambulating in the cardiac stepdown unit hallway with standby assistance from nursing staff. Afebrile the last 24 hours. Epicardial pacemaker wires were removed yesterday without incident. Objective - Vital Signs Vital signs: Vital Signs Temp 98.3 F 10/11/21 09:38 Pulse 93 10/11/21 09:38 Resp 18 10/11/21 09:38 BP 117/60 10/11/21 09:38 Pulse Ox 95 10/11/21 09:38 Intake & Output 10/10/21 10/11/21 10/11/21 18:59 06:59 18:59 Intake Total 720 200 Output Total 425 500 Balance 295 -300 Weight 132.243 kg 130.6 kg Intake: Oral 720 200 Output: Urine 425 500 Other: Voiding Method Indwelling Catheter Toilet Urinal # Voids 250 1 # Bowel Movements 1 ABP, PAP, CO, CI - Last Documented Arterial Blood Pressure 104/51 Pulmonary Artery Pressure 23/11 Cardiac Output 7.4 Cardiac Index 3.1 - Exam CONSTITUTIONAL: Sitting up to the bedside chair on the cardiac stepdown unit, appears comfortable, cooperative, no apparent acute distress. HEENT: Neck is supple, no JVD, no lymphadenopathy. RESPIRATORY: Lungs sounds essentially clear throughout, diminished to his bilateral bases. Respirations are symmetrical and nonlabored. Currently on 2 L nasal cannula with oxygen saturations 98%. Able to achieve 1500 mL on his incentive spirometry. Strong cough. CARDIOVASCULAR: Regular rhythm and rate. S1 and S2 present, negative for S3, gallop or murmur. Sternum is stable. Palpable peripheral pulses bilaterally, generalized +1 edema. No calf pain or tenderness noted. Heart hugger in place with patient demonstrating appropriate use. Knee-high RHIANNON hose and sequential compression devices in place to his bilateral lower extremities. GASTROINTESTINAL: Abdomen soft, nontender, nondistended. Active bowel sounds present 4 quadrants. Tolerating diet. Passing flatus. No guarding or rigidity. Bowel movement yesterday 10/10/2021. GENITOURINARY: Continues to void. 500 mL urine output in the last 8 hours. INTEGUMENTARY: Skin is warm and dry with no evidence of clubbing or cyanosis. Midline sternal incision clean dry and well approximated, covered with dry intact dressing. Left lower extremity EVH sites well approximated without redness or drainage. Left arm radial artery harvest sites clean, dry and approximated. No drainage or redness is present. NEUROLOGIC: Cranial nerves II through XII intact. No focal deficits. MUSKULOSKELETAL: Able to move all extremities, strength equal bilaterally, generalized weakness. PSYCHIATRIC: Alert and oriented to person place and time, flat affect, intact judgment and insight. - Allied health notes Allied health notes reviewed: nursing - Labs CBC & Chem 7: 10/11/21 09:08 10/11/21 09:08 Labs: Abnormal Lab Results - Last 24 Hours (Table) 10/10/21 10/10/21 10/10/21 Range/Units 10:11 11:32 16:21 RBC 2.43 L (4.30-5.90) m/uL Hgb 7.1 L (13.0-17.5) gm/dL Hct 22.6 L (39.0-53.0) % MCHC (31.0-37.0) g/dL RDW (11.5-15.5) % Neutrophils # 8.1 H (1.3-7.7) k/uL Sodium (137-145) mmol/L Carbon Dioxide (22-30) mmol/L BUN (9-20) mg/dL Creatinine (0.66-1.25) mg/dL Glucose (74-99) mg/dL POC Glucose (mg/dL) 101 H 143 H (75-99) mg/dL 10/10/21 10/11/21 10/11/21 Range/Units 20:29 03:31 06:17 RBC (4.30-5.90) m/uL Hgb (13.0-17.5) gm/dL Hct (39.0-53.0) % MCHC (31.0-37.0) g/dL RDW (11.5-15.5) % Neutrophils # (1.3-7.7) k/uL Sodium (137-145) mmol/L Carbon Dioxide (22-30) mmol/L BUN (9-20) mg/dL Creatinine (0.66-1.25) mg/dL Glucose (74-99) mg/dL POC Glucose (mg/dL) 162 H 121 H 133 H (75-99) mg/dL 10/11/21 10/11/21 Range/Units 09:08 09:08 RBC 2.68 L (4.30-5.90) m/uL Hgb 7.8 L (13.0-17.5) gm/dL Hct 25.8 L (39.0-53.0) % MCHC 30.4 L (31.0-37.0) g/dL RDW 15.8 H (11.5-15.5) % Neutrophils # (1.3-7.7) k/uL Sodium 135 L (137-145) mmol/L Carbon Dioxide 21 L (22-30) mmol/L BUN 53 H (9-20) mg/dL Creatinine 2.56 H (0.66-1.25) mg/dL Glucose 159 H (74-99) mg/dL POC Glucose (mg/dL) (75-99) mg/dL - Imaging and Cardiology Chest x-ray: report reviewed, image reviewed Assessment and Plan Assessment: 1. Triple-vessel diffuse coronary artery disease with previous myocardial infa rction and previous stenting 5, most recently 2008, status post four-vessel CABG 2. Preserved left ventricular function, EF 55-60% 3. Hypertension 4. Hyperlipidemia, treated, cholesterol 138, LDL 59.2, triglycerides 260 5. Ygk-wcaaqfo-wfrqdgvdl diabetes, hemoglobin A1c 6.3% 6. Morbid obesity 7. Chronic kidney disease stage III 8. Obstructive sleep apnea currently not using CPAP 9. History of anemia 10. Gout 11. GERD 12. Current light tobacco dependence, mild COPD with FEV1 62% of predicted 13. Family history of premature coronary artery disease with both parents diagnosed before the age of 60 14. Vaccinated and boosted against Covid 15. Postoperative acute blood loss anemia, expected Plan: 1. Continue aspirin, statin, Plavix, and beta brandy. Will increase metoprolol tartrate to 75 mg by mouth twice a day. 2. Continue amlodipine 5 mg by mouth daily for radial artery spasm prophylaxis. 3. Wean O2 as tolerated. Encourage incentive spirometry use 10 times every hour while awake. Bronchodilators, BiPAP per pulmonology 4. Increase activity, ambulate as tolerated. PT/OT/cardiac rehab following. 5. Will monitor daily labs and chest x-rays. Electrolyte replacement per protocol. Avoid nephrotoxins, decision regarding lasix, IV iron per nephrology. 6. GI/DVT prophylaxis. 7. Insulin management per primary care service. 8. Pain control with current medication regimen. Avoid Toradol secondary to kidney disease. 9. Discharge planning is in place, anticipate discharge to inpatient rehab or subacute rehab within the next 48 hours. 10. Strict accurate intake and output. Instructed nursing to get PVR after void to make sure patient is emptying completely 11. Importance of risk modification including smoking cessation discussed with the patient. 12. Dr. Nelsons is consulted noted and appreciated. 13. More recommendations to follow based on patient's clinical course. Time with Patient: Greater than 30
[2021-10-11 12:04] LABS: Glucose,Whole Blood 151 mg/dL (75-99)
[2021-10-11] MEDS: SERTRALINE 50 MG TAB PO SCH (12:20)
--- NOTE | 2021-10-11 12:40 | P.PN ---
Subjective Progress Note Date: 10/11/21 The patient is a 51-year-old male who is currently admitted after undergoing four-vessel bypass surgery. He was interviewed and examined resting comfortably in the recliner chair. He states he have some mild midsternal chest discomfort. He states he does not have any dyspnea at rest or when moving, however if he ambulates he does have dyspnea after he sits down. No orthopnea. No heart racing or fluttering. GENERAL: Well-appearing, well-nourished and in no acute distress. NECK: Supple without JVD or thyromegaly. LUNGS: Breath sounds clear to auscultation bilaterally. Respiration equal. Low lung volumes. No wheezes, rales or rhonchi. HEART: Regular rate and rhythm without murmurs, rubs or gallops. S1 and S2 heard. EXTREMITIES: Normal range of motion. Moderate bilateral pitting edema. No c lubbing or cyanosis. Peripheral pulses intact and strong. VITALS: Blood pressure 113/66, SpO2 94% on room air, respiratory rate 16, pulse 72 TELEMETRY: Sinus mechanism. No significant ectopy overnight LABS: WBC 8.1, hemoglobin 7.8, hematocrit 25.8, platelet 182, sodium 135, potassium 4.8, BUN 53, creatinine 2.56 IMPRESSION: Multivessel coronary artery disease, status post four-vessel CABG Hypertension Hyperlipidemia Diabetes mellitus Tobacco use COPD Chronic kidney disease PLAN: Continue current medication regimen Increase activity Encourage pulmonary hygiene Postoperative management per CT surgery Further recommendations with clinical course The patient has been seen and evaluated by nurse practitioner and coordinating physician. Plan of care has been reviewed and agreed upon by Dr Rebolledo. Objective - Vital Signs Vital signs: Vital Signs Temp 98.3 F 10/11/21 09:38 Pulse 72 10/11/21 12:00 Resp 16 10/11/21 12:00 BP 113/66 10/11/21 12:00 Pulse Ox 94 L 10/11/21 12:00 Intake & Output 10/10/21 10/11/21 10/11/21 18:59 06:59 18:59 Intake Total 720 200 600 Output Total 425 500 710 Balance 295 -300 -110 Weight 132.243 kg 130.6 kg Intake: Oral 720 200 600 Output: Urine 425 500 710 Other: Voiding Method Indwelling Catheter Toilet Toilet Urinal Urinal # Voids 250 1 # Bowel Movements 1 ABP, PAP, CO, CI - Last Documented Arterial Blood Pressure 104/51 Pulmonary Artery Pressure 23/11 Cardiac Output 7.4 Cardiac Index 3.1 - Labs CBC & Chem 7: 10/11/21 09:08 10/11/21 09:08 Labs: Abnormal Lab Results - Last 24 Hours (Table) 10/10/21 10/10/21 10/11/21 Range/Units 16:21 20:29 03:31 RBC (4.30-5.90) m/uL Hgb (13.0-17.5) gm/dL Hct (39.0-53.0) % MCHC (31.0-37.0) g/dL RDW (11.5-15.5) % Sodium (137-145) mmol/L Carbon Dioxide (22-30) mmol/L BUN (9-20) mg/dL Creatinine (0.66-1.25) mg/dL Glucose (74-99) mg/dL POC Glucose (mg/dL) 143 H 162 H 121 H (75-99) mg/dL 10/11/21 10/11/21 10/11/21 Range/Units 06:17 09:08 09:08 RBC 2.68 L (4.30-5.90) m/uL Hgb 7.8 L (13.0-17.5) gm/dL Hct 25.8 L (39.0-53.0) % MCHC 30.4 L (31.0-37.0) g/dL RDW 15.8 H (11.5-15.5) % Sodium 135 L (137-145) mmol/L Carbon Dioxide 21 L (22-30) mmol/L BUN 53 H (9-20) mg/dL Creatinine 2.56 H (0.66-1.25) mg/dL Glucose 159 H (74-99) mg/dL POC Glucose (mg/dL) 133 H (75-99) mg/dL 10/11/21 Range/Units 11:56 RBC (4.30-5.90) m/uL Hgb (13.0-17.5) gm/dL Hct (39.0-53.0) % MCHC (31.0-37.0) g/dL RDW (11.5-15.5) % Sodium (137-145) mmol/L Carbon Dioxide (22-30) mmol/L BUN (9-20) mg/dL Creatinine (0.66-1.25) mg/dL Glucose (74-99) mg/dL POC Glucose (mg/dL) 151 H (75-99) mg/dL
--- NOTE | 2021-10-11 14:17 | P.PN ---
Subjective Progress Note Date: 10/11/21 51-year-old male with history of CAD, prior myocardial infarction, and stenting, 2008, as well as hypertension, hyperlipidemia, diabetes, COPD, sleep apnea, anemia, and chronic tobacco use, who had a catheterization at [facility]. It showed multivessel coronary artery disease, and the patient is apparently being evaluated for possible eye past grafting. The patient's currently not receiving any supplemental oxygen. The patient is on saline IV at [facility]. He has smoked for many years. The patient apparently has recently been out of fpc, and is currently wearing a tender. 10/06/2021, the patient is being seen for a follow-up. As we are following up this patient, the patient is being worked up for coronary artery bypass surgery as the patient is known to have multivessel coronary disease with triple-vessel involvement. The patient undergone a previous myocardial infarction and previous stenting 5. The patient also has history of hypertension, hyperlipidemia, nac-ocfluga-upymsarbj diabetes mellitus, chronic stage III kidney disease and obstructive sleep apnea not utilizing CPAP therapy. The patient also has gout, chronic anemia and premature history of coronary artery disease. The patient has been vaccinated and boosted for COVID 19 infections. The patient is currently using incentive spirometer. He is pulling approximately 3000. His free of any chest pain for now. Spirometry was done and the patient was found to have an FEV1 of 2.41 L and the patient had an MCV of 90.4 L per minute. Otherwise, the patient is doing well. No significant complaints for now. His free of any chest pain. His cardiac catheterization with an [facility]. 10/07/2021, the patient is being seen in the intensive care unit. Following coronary artery bypass surgery. The patient undergone four-vessel bypass surgery. At this point in time, the patient is sedated and the patient is currently on propofol running at 50 mcg/kg per minute. The patient was brought in to the ICU on assist control mode of mechanical ventilation at the rate of 12, tidal volume of 550, PEEP of 10 and FiO2 of 60%. The blood gases showed a pH of 7.32 with a pCO2 of 47 and pO2 of 300. Based on that, the FiO2 was dropped down to 60% and the rate was increased up to 20. The chest x-ray was done in the ICU and the patient had adequate expansion of both lungs. ET tube was in good location. Tappen-Danae catheter was in a good location. The patient has a left pleural and 2 mediastinal chest tubes. Output from the chest tubes have been in the order of 100 mL from the mediastinal chest tube and 50 mL from the left pleural chest tube. Current pulmonary artery pressures of 49/32. Her net output is at 7.9 with an index of 3.3. The patient is currently on Catapres at 4 mg an hour for blood pressure control. The chest x-ray shows no evidence of any pneumothorax. There is adequate expansion of both lungs bilaterally. The patient has adequate urine output. The patient's hypothermic with a temperature cor of 36.4 and the patient is receiving external warming at this point in time. No other significant events otherwise. The patient is also on nitroglycerin 5 micrograms per minute. On 2021, the patient remains extubated. The patient arrived to the ICU following his surgery as the patient underwent four-vessel bypass surgery. Postop, he was on sedation. Sedation was gradually weaned off. FiO2 was weaned off. Patient was given a spelled his breathing trial and following that the patient was extubated to BiPAP. This morning he is in oxygen by nasal cannula at 5 L. His chest x-ray from this morning showing no acute abnormalities. Obviously the ET tube has been removed. The Tappen-Danae catheter is in place. The patient has 2 mediastinal chest tubes and 1 pleural chest tube on the left. No evidence of any pneumothorax. No signs of any respiratory distress. Cardiac rhythm remains sinus. The patient is on no pressors. Cardiac output currently is at 7.4 with an index of 3.1. Pulmonary artery pressures of 24/7. Output from the chest tubes have been noted. The total amount of output from the left pleural chest tube is 41 mL over the past 12 hours and mediastinal chest tubes 180 mL over the past 12 hours. The patient also has a NICOL drain in the left upper extremity. The output from the left arm has been 25 mL of serosanguineous drainage. There is also another NICOL in the left lower extremity the output being 35 mL. The patient is currently off the nitroglycerin drip. He is on insulin drip at 5 units an hour. Neurologically intact. Moving 4 extremities without any limitation. 10/09/2021, the patient remains extubated and the patient is still on oxygen at 4 L per minute. He is post coronary artery bypass surgery and the patient underwent four-vessel bypass and today he is postop day #2. Doing very well. Tappen-Danae catheter has been removed. The patient continues to have 2 mediastinal and 1 left-sided pleural chest tube. Output from those tubes have been minimal overnight. No evidence of any air leak. The chest x-ray from today was reviewed and was compared to the earlier chest x-ray. There is some atelectatic changes in the left lung. All of the tubes are in good location. No evidence of any pneumothorax. There is cardiomegaly. Lung volumes are essentially small. NICOL drains are ordered mode at this point in time. Hemoglobin is at 7.9. White cell count is at 10.9. Platelet counts is at 129. Creatinine is at 2.2 knowing that the patient has a component of chronic kidney disease. Sodium is 131. Potassium is at 4.9. Urine output is adequate. Blood sugar control is with insulin drip at 6.5 units an hour. Using the IS and he is pulling 1000cc On 10/10/2021 patient seen in follow-up on selective care unit, today's postoperative day #3, status post four-vessel coronary artery bypass grafting on 10/07/2021. Patient is sitting up in the recliner, breathing comfortably, he is currently on 4 L of oxygen pulse ox of 96%, denies any specific complaints, he was able to ambulate, he does get short of breath with exertion, he looks generally swollen, but no acute distress, his chest tubes have been discontinued, his IVs have been discontinued, patient is currently hep-locked, he is in sinus mechanism, hemodynamically has been stable, today's chest x-ray showing cardiomegaly, no acute pulmonary process. Blood pressure is stable. His incisions midsternal, his chest tube insertion sites, and leg incision sites are clean dry and intact. Today's labs have been reviewed, his white count is 9.9, hemoglobin is 7.1, and patient is being started on iron supplements, sodium is 132, potassium is 5.5, CO2 is 20, BUN is 47, creatinine is 3.05. 10/11/2021, the patient is being seen for a follow-up. The patient is currently on room air oxygen. The chest x-ray from today shows adequate expansion of both lungs. No evidence of any pneumothorax. No pleural effusion. Chest tubes are removed and the patient is pulling approximately 1500 mL on his incentive spirometer. Cardiac rhythm is maintained sinus. He was given another dose of 40 mg of IV Lasix. Creatinine is improving. The patient is producing adequate amount of urine output. Creatinine is down to 2.5. He is sitting slightly depressed. Pain is under adequate control. Sternal wound is dry clean and intact. Cardiac rhythm remains sinus. The epicardial pacemaker wires were removed yesterday without any complications. On today's blood work, the patient has a hemoglobin of 7.8, BUN of 53 with a creatinine of 2.6, sodium is at 135. Calcium level is at 8.8. Objective - Vital Signs Vital signs: Vital Signs Temp 98.3 F 10/11/21 09:38 Pulse 72 10/11/21 12:00 Resp 16 10/11/21 12:00 BP 113/66 10/11/21 12:00 Pulse Ox 94 L 10/11/21 12:00 Intake & Output 10/10/21 10/11/21 10/11/21 18:59 06:59 18:59 Intake Total 720 200 600 Output Total 425 500 710 Balance 295 -300 -110 Weight 132.243 kg 130.6 kg Intake: Oral 720 200 600 Output: Urine 425 500 710 Other: Voiding Method Indwelling Catheter Toilet Toilet Urinal Urinal # Voids 250 1 # Bowel Movements 1 ABP, PAP, CO, CI - Last Documented Arterial Blood Pressure 104/51 Pulmonary Artery Pressure 23/11 Cardiac Output 7.4 Cardiac Index 3.1 - Exam No acute distress, stable on room air oxygen and the patient is a body mass index of 41.3 HEENT examination is grossly unremarkable. Neck supple. Full range of motion. No adenopathy thyromegaly or neck vein distention. Cardiovascular examination reveals regular rhythm rate. S1-S2 normal. No S3 or S4. No discernible murmur noted. Lungs reveal clear breath sounds. Breath sounds are equal bilaterally. No adventitious lung sounds including wheezes rhonchi or crackles. Sternum is stable clean and intact. Abdomen soft bowel sounds are heard. No masses or tenderness. Extremities are intact. No cyanosis clubbing or edema. He is wearing a tether on his ankle. Examination of the skin revealed no evidence of significant rashes, suspicious appearing nevi or other concerning lesions. Neurologic examination is intact - Labs CBC & Chem 7: 10/11/21 09:08 10/11/21 09:08 Labs: Abnormal Lab Results - Last 24 Hours (Table) 10/10/21 10/10/21 10/11/21 Range/Units 16:21 20:29 03:31 RBC (4.30-5.90) m/uL Hgb (13.0-17.5) gm/dL Hct (39.0-53.0) % MCHC (31.0-37.0) g/dL RDW (11.5-15.5) % Sodium (137-145) mmol/L Carbon Dioxide (22-30) mmol/L BUN (9-20) mg/dL Creatinine (0.66-1.25) mg/dL Glucose (74-99) mg/dL POC Glucose (mg/dL) 143 H 162 H 121 H (75-99) mg/dL 10/11/21 10/11/21 10/11/21 Range/Units 06:17 09:08 09:08 RBC 2.68 L (4.30-5.90) m/uL Hgb 7.8 L (13.0-17.5) gm/dL Hct 25.8 L (39.0-53.0) % MCHC 30.4 L (31.0-37.0) g/dL RDW 15.8 H (11.5-15.5) % Sodium 135 L (137-145) mmol/L Carbon Dioxide 21 L (22-30) mmol/L BUN 53 H (9-20) mg/dL Creatinine 2.56 H (0.66-1.25) mg/dL Glucose 159 H (74-99) mg/dL POC Glucose (mg/dL) 133 H (75-99) mg/dL 10/11/21 Range/Units 11:56 RBC (4.30-5.90) m/uL Hgb (13.0-17.5) gm/dL Hct (39.0-53.0) % MCHC (31.0-37.0) g/dL RDW (11.5-15.5) % Sodium (137-145) mmol/L Carbon Dioxide (22-30) mmol/L BUN (9-20) mg/dL Creatinine (0.66-1.25) mg/dL Glucose (74-99) mg/dL POC Glucose (mg/dL) 151 H (75-99) mg/dL Assessment and Plan Plan: 1 Multivessel coronary artery disease, with anticipated bypass grafting, next week. The patient has had previous myocardial infarction and stenting 5 most recently in 2008. The patient is currently being evaluated for coronary artery bypass surgery. The patient is post four-vessel bypass surgery. Currently the patient is postop day #4. The patient is hemodynamically stable. Chest x-ray findings are stable. Chest tubes were removed. No other issues for now. 2 post thoracotomy, currently on a mechanical ventilator. Currently on room air. The chest tubes are all in place. Output has been noted. The patient is hemodynamically stable at this point in time. 3 History of myocardial infarction, 2008. 4 Essential hypertension. 5 Hyperlipidemia. 6 Diabetes mellitus. The patient has a HbA1c of 6.3%, insulin drip has been discontinued and the patient is currently on Levemir insulin 20 units plus a sliding scale coverage. 7 Suspected COPD from chronic tobacco use. The patient has a an FEV1 of 62% of predicted 8 Sleep apnea syndrome. not utilizing CPAP therapy. Body mass index is 21.8 9 History of anemia. 10 chronic stage III kidney disease CREATININE IS ALSO STABLE AND THE PATIENT HAS CHRONIC STAGE III KIDNEY DISEASE. Creatinine is improving and the patient has received Lasix today. The patient developed an acute kidney injury, creatinine is down to 2.56, improved compared to yesterday. 11 gout 12 active for COVID 19 including booster shot Plan Chest x-ray was noted. All of the chest physical removed. Pacemaker wires have been removed Patient is currently on room air oxygen Hemoglobin stable at 7.8 Patient has been on Levemir insulin 20 units along with a sliding scale coverage Continue aspirin and Plavix and beta blockers Monitor renal function and continue with Lasix Incentive spirometer
--- NOTE | 2021-10-11 14:48 | P.PN ---
Progress Note - Text Progress Note Date: 10/11/21 Presenting complaint: Chest pain History of presenting complaint: This is a 51-year-old patient was chronic stable medical conditions include diabetes mellitus type 2, hypertension, CK D stage III, GERD, gout with known coronary artery disease and prior 5 stents. Patient had been present for 15 years really has not prolonged cold. [facility] Patient presented to [facility] with chest hour left- sided precordial pain. Admitted with unstable angina. Put on IV heparin. Troponins were negative. Patient was transferred to [facility] in [place] for further intervention. Patient had a nuclear stress test that showed reversibility. Patient yesterday underwent cardiac catheterization was found to have triple-vessel disease. Cardiothoracic surgery's been consulted. Currently no chest pain. 2-D echo showed EF of 55-60% October 05: Sitting up in bed. No chest pain. Oral intake good. Consult nephrology. October 06: Comfortable. No chest pain no shortness of breath. Being scheduled for coronary bypass tomorrow. GPS Tether has been taken of a by the police deputy. PAMELA inhibitor held by nephrology. October 07: ICU. Ventilator 50/10. Quadruple coronary bypass. 2 mediastinal one chest tube. Drips include cleviprex, propofol, insulin, nitroglycerin. Sedated. Sinus rhythm. October 08: ICU: Patient been extubated. Sitting up in a chair. Chest tubes in place. On a clear liquid diet. Some shortness of breath. Sinus rhythm. Sinus rhythm. Martin catheter. Awake. Tired. Received IV amiodarone.. 6 L nasal cannula October 09: ICU. Feeling better. Tolerated liquid diet today. 4 L nasal cannula. Chest use a bit removed. Martin cath has been removed. Did walk about 100 feet. Patient is off the insulin drip. Will be moved off the ICU. Breathing better. October 10: Moved out of the ICU. Some shortness of breath. Eating fair. Did walk a bit. Up in chair. 4 L nasal cannula. October 11: Feeling tired today. Shortness of breath. Did eat some. Up in a chair. Has not slept well. 95% on room air Review of systems: Was done for constitutional, cardiovascular, GI, pulmonary. relevant finding as above Active Medications Acetaminophen (Acetaminophen Tab 325 Mg Tab) 650 mg PO Q4HR PRN PRN Reason: Fever and/ or Pain Last Admin: 10/11/21 09:46 Dose: 650 mg Documented by: Albuterol/Ipratropium (Ipratropium-Albuterol 3 Ml Neb) 3 ml INHALATION RT-Q2H PRN PRN Reason: Shortness Of Breath Or Wheezing Albuterol/Ipratropium (Ipratropium-Albuterol 3 Ml Neb) 3 ml INHALATION RT-QID [facility] Last Admin: 10/11/21 11:34 Dose: Not Given Documented by: Amlodipine Besylate (Amlodipine 5 Mg Tab) 5 mg PO DAILY [facility] Last Admin: 10/11/21 09:44 Dose: 5 mg Documented by: Ascorbic Acid (Ascorbic Acid 500 Mg Tab) 500 mg PO BID-W/MEALS [facility] Last Admin: 10/11/21 06:45 Dose: 500 mg Documented by: Aspirin (Aspirin 325 Mg Tab) 325 mg PO DAILY [facility] Last Admin: 10/11/21 09:44 Dose: 325 mg Documented by: Atorvastatin Calcium (Atorvastatin 80 Mg Tab) 80 mg PO HS [facility] Last Admin: 10/10/21 21:09 Dose: 80 mg Documented by: Benzocaine/Menthol (Benzocaine/Menthol Lozeng 1 Each Lozenge) 1 each MUCOUS MEM Q2H PRN PRN Reason: Sore Throat Bisacodyl (Bisacodyl 10 Mg Supp) 10 mg RECTAL DAILY PRN PRN Reason: Constipation Clopidogrel Bisulfate (Clopidogrel 75 Mg Tab) 75 mg PO DAILY [facility] Last Admin: 10/11/21 09:44 Dose: 75 mg Documented by: Ferrous Sulfate (Ferrous Sulfate 325 Mg Tab) 325 mg PO BID-W/MEALS [facility] Last Admin: 10/11/21 06:45 Dose: 325 mg Documented by: Glipizide (Glipizide 5 Mg Tab) 5 mg PO AC-BRKFST [facility] Last Admin: 10/11/21 06:45 Dose: 5 mg Documented by: Heparin Sodium (Porcine) (Heparin Sodium,Porcine/Pf 5,000 Unit/0.5 Ml Syringe) 5,000 unit SQ Q8HR [facility] Last Admin: 10/11/21 09:44 Dose: 5,000 unit Documented by: Amiodarone HCl 150 mg/ (Dextrose/Water) 103 mls @ 618 mls/hr IV .Q10M PRN; Protocol PRN Reason: A.FIB/FLUTTER Amiodarone HCl 360 mg/ (Dextrose/Water) 207.2 mls @ 34.533 mls/hr IV .Q6H PRN; Protocol PRN Reason: A.FIB/FLUTTER Amiodarone HCl 450 mg/ (Dextrose/Water) 250 mls @ 16.667 mls/hr IV .Q15H PRN; Protocol PRN Reason: A.FIB/FLUTTER Ferric Sodium Gluconate 125 mg (/ Sodium Chloride) 110 mls @ 100 mls/hr IVPB DAILY [facility] Stop: 10/12/21 10:31 Last Admin: 10/11/21 09:45 Dose: 100 mls/hr Documented by: Insulin Aspart (Insulin Aspart (Novolog) 100 Unit/Ml Vial) 0 unit SQ [id number] [facility]; Protocol Last Admin: 10/11/21 12:20 Dose: 2 unit Documented by: Insulin Detemir (Insulin Detemir (Levemir) 100 Unit/Ml Syr) 20 unit SQ DAILY@0700 [facility] Last Admin: 10/11/21 09:45 Dose: 20 unit Documented by: Magnesium Hydroxide (Magnesium Hydroxide 2,400 Mg/10 Ml Cup) 2,400 mg PO BID PRN PRN Reason: Constipation Last Admin: 10/10/21 07:49 Dose: 2,400 mg Documented by: Metoclopramide HCl (Metoclopramide 5 Mg/Ml 2 Ml Vial) 10 mg IVP Q4H PRN PRN Reason: Nausea And Vomiting Last Admin: 10/10/21 07:49 Dose: 10 mg Documented by: Metoprolol Tartrate (Metoprolol Tartrate 25 Mg Tab) 75 mg PO BID [facility] Midodrine (Midodrine 5 Mg Tab) 5 mg PO AC-BID [facility] Last Admin: 10/11/21 06:45 Dose: 5 mg Documented by: Miscellaneous Information (Potassium Replacement Protocol 1 Each Misc) 1 each MISCELLANE DAILY PRN; Protocol PRN Reason: Per Protocol Miscellaneous Information (Magnesium Replacement Protocol 1 Each Misc) 1 each MISCELLANE DAILY PRN; Protocol PRN Reason: Per Protocol Miscellaneous Information (Phosphorus Replacement Protoco 1 Each Misc) 1 each MISCELLANE DAILY PRN; Protocol PRN Reason: Per Protocol Ondansetron HCl (Ondansetron 4 Mg/2 Ml Vial) 4 mg IVP Q6HR PRN PRN Reason: Nausea And Vomiting Last Admin: 10/08/21 06:36 Dose: 4 mg Documented by: Pantoprazole Sodium (Pantoprazole 40 Mg Tablet) 40 mg PO AC-BRKFST [facility] Last Admin: 10/11/21 06:45 Dose: 40 mg Documented by: Senna/Docusate Sodium (Sennosides-Docusate Sodium 1 Each Tab) 2 each PO HS [facility] Last Admin: 10/10/21 21:04 Dose: 2 each Documented by: Sertraline HCl (Sertraline 50 Mg Tab) 50 mg PO DAILY [facility] Last Admin: 10/11/21 12:20 Dose: 50 mg Documented by: Sodium Chloride (Sodium Chloride 0.9% Flush 10 Ml Syringe) 10 ml IV BID [facility] Last Admin: 10/11/21 09:45 Dose: 10 ml Documented by: Past medical history to include: Diabetes mellitus type 2, CAD with 5 stents, hypertension, CK D stage III, GERD, gout, obstructive sleep apnea, bipolar Social history: Patient average 3-4 packs a day for close to 40 years. Now a few cigarettes a day. Currently living at half a house. [facility] last [facility] years. Family history: Mesothelioma, heart disease Physical examination: VITAL SIGNS: Afebrile, 18, 11 3 x 66, 94% on room air GENERAL: , Sitting up in a chair awake. Tired EYES: Pupils equal. Conjunctiva normal. HEENT: External appearance of nose and ears normal, oral cavity normal NECK: JVD unable to assess; masses not palpable. HEART: First and second heart sounds are normal; no edema. LUNGS: Respiratory rate increased; decreased breath sounds. ABDOMEN: Soft, nontender, liver spleen not palpable, no masses palpable. PSYCH: AO 3, mood and affect tired Dermatology: Inspection skin grossly intact. No obvious abnormality on palpation: Musculoskeletal: Inspection no clubbing cyanosis. Palpation: No obvious bony abnormality INVESTIGATIONS, reviewed in the clinical context: October 11: White count 8.1 hemoglobin 7.8 potassium 4.8. 53 creatinine 2.56 October 10: White count 9.9 hemoglobin 7.1 platelets 161 sodium 132 potassium 5.5. 47 creatinine 3.05 October 09: White count 10.9 hemoglobin 7.7 platelets 129 potassium 4.9. 28 creatinine 2.2 October 08: White count 8.7 hemoglobin 8.2 platelets 141 potassium 5.2. 24 creatinine 1.51 albumin 2.9. Chest x-ray film personally reviewed by me: No infiltrates. Telemetry: Personally reviewed by me sinus rhythm October 07: White count 5 hemoglobin 7.3 platelets 85 potassium 4.7 BUN 24 creatinine 1.34 October 06: Potassium 4.3 creatinine 1.75 Renal ultrasound: Difficult exam due to patient body habitus. October 05: Hemoglobin 11.5 creatinine 1.67 White count is 6.3 hemoglobin 11.9 platelets 189 sodium 139 potassium 4.6 BUN 28 creatinine 1.55 Accu-Cheks noted HbA1c 6.3 TSH 1.6 Acute hepatitis panel for A, B, and C: Not reactive Coronavirus [PCR]: Not detected 2-D echocardiogram: Moderate concentric LVH. EF 55-60% Chest x-ray film personally reviewed by me-cardiomegaly. Telemetry tracings personally reviewed by me: Sinus rhythm, T-wave changes Assessment and plan: -Quadruple coronary bypass. 4 triple-vessel CAD On October [address] Renee -Acute hypoxic respiratory failure: Improved Ventilator support: Extubated. Now off oxygen -Coronary artery disease with prior 5 stents Aspirin , Lopressor 25 mg 3 times a day. Amlodipine 5 mg a day -COPD in a previous smoker DuoNeb 3 times a day -Hyperlipidemia Lipitor 80 mg daily at bedtime -Chronic kidney disease stage III likely from diabetic nephropathy and nephrosclerosis Follow renal function closely. nephrology consult -Normocytic anemia of chronic disease from CK D -Acute postprocedure blood loss anemia, expected from surgery Follow H&H. Received IV Ferrlecit 125 mg -Acute dilutional thrombocytopenia -Diabetes mellitus type 2 on oral hypoglycemic Insulin drip-discontinued. Follow Accu-Cheks with sliding scale. Glucotrol -Essential hypertension Amlodipine, Lopressor -Acute insomnia from multiple medical problems Ambien 5 mg daily at bedtime -Chronic gout Allopurinol 100 mg a day -Morbid obesity BMI 40.2 Patient is rather tired possibly from lack of sleep. Pulse ox is good. Told the patient to take sleep whenever he can. Add Ambien at night.
--- NOTE | 2021-10-11 16:12 | PN ---
PROGRESS NOTE Patient is seen for followup for acute kidney injury mostly acute tubular necrosis. The patient's renal function has improved. Creatinine down to 2.5. He remains comfortable. He is not in acute distress. No chest pains. No active bleeding noted. PHYSICAL EXAMINATION: On examination today, blood pressure is 117/60, heart rate 93 per minute. Patient is afebrile. Examination of the heart S1, S2. Examination of the lungs, decreased breath sounds at the bases. Abdomen: Soft, distended, obese. Examination of lower extremities shows edema 2 to 3+ bilaterally upper and lower extremities. BIOSTATISTICS TEACHER exam grossly intact. LAB: Show sodium 135, potassium 4.8, BUN 53, creatinine 2.5, hemoglobin 7.8 g/dL. ASSESSMENT: 1. Acute kidney injury, acute tubular necrosis secondary to hemodynamic instability, hypoperfusion with hypotension currently improving. 2. Volume overload. We will give one dose of IV Lasix. 3. Anemia currently with significant iron deficiency maintained on IV iron. 4. Coronary artery disease status post coronary artery bypass surgery x4. 5. Chronic kidney disease stage 3A to 3B with baseline creatinine 1.5-1.7 mg/dL secondary to nephrosclerosis. PLAN: IV Lasix x1. Continue with the midodrine. The patient is encouraged to increase oral intake. MMODL / IJN: [id number] /
[2021-10-11 17:07] LABS: Glucose,Whole Blood 114 mg/dL (75-99)
[2021-10-11 20:34] LABS: Glucose,Whole Blood 128 mg/dL (75-99)
[2021-10-11] MEDS: ZOLPIDEM 5 MG TAB PO SCH (20:38)
[2021-10-11] MEDS: ATORVASTATIN 80 MG TAB PO SCH (20:40)
[2021-10-11] MEDS: SENNOSIDES-DOCUSATE SODIUM 1 EACH TAB PO SCH (20:40)
[2021-10-11] MEDS ORDERED: METOPROLOL TARTRATE 25 MG TAB PO SCH (21:00)
[2021-10-12 02:14] LABS: Glucose,Whole Blood 130 mg/dL (75-99)
[2021-10-12] MEDS: INSULIN ASPART (NovoLOG) 100 UNIT/ML VIAL SQ SCH ×6 (03:21→20:54)
[2021-10-12 06:00] LABS: Glucose,Whole Blood 136 mg/dL (75-99)
[2021-10-12] MEDS: glipiZIDE 5 MG TAB PO SCH (06:54)
[2021-10-12] MEDS: ASCORBIC ACID 500 MG TAB PO SCH ×2 (06:54→17:30)
[2021-10-12] MEDS: FERROUS SULFATE 325 MG TAB PO SCH ×2 (06:54→17:30)
[2021-10-12] MEDS: PANTOPRAZOLE 40 MG TABLET PO SCH (06:54)
[2021-10-12] MEDS: MIDODRINE 5 MG TAB PO SCH (06:55)
[2021-10-12] MEDS: IPRATROPIUM-ALBUTEROL 3 ML NEB INHALATION SCH ×4 (07:51→19:59)
--- NOTE | 2021-10-12 09:36 | P.PN ---
Subjective Progress Note Date: 10/12/21 Principal diagnosis: Triple-vessel diffuse coronary artery disease, unstable angina, preserved left ventricular function. Past medical history significant for coronary artery dise ase with previous myocardial infarction and previous stenting 5, hypertension, hyperlipidemia, [id number] diabetes, obesity, chronic kidney disease stage III, obstructive sleep apnea currently not using CPAP, anemia, gout, GERD, current light tobacco dependence, family history of premature coronary artery disease with both parents diagnosed before the age of 60, vaccinated and boosted against Covid. POD #5 quadruple coronary artery bypass grafting using the left internal mammary artery to the left anterior descending artery, left radial artery from the aorta to the ramus intermedius artery, reverse saphenous vein graft from the aorta to the second obtuse marginal artery, reverse saphenous vein graft from the aorta to the early arising posterior descending artery, exclusion of the left atrial appendage using a 45 mm AtriClip, sternal plating using the cranium system, graft flow measurements using the Medistim system, endoscopic harvesting of the left radial artery, endoscopic harvesting of the left greater saphenous vein, intraoperative transesophageal echocardiogram and epi-aortic scanning. Postoperative acute blood loss anemia, expected given hemodilution, cardiopulm onary bypass pump, and preoperative anemia. The patient was seen today 10/12/2021 at his bedside on the cardiac stepdown unit. Currently he is sitting up to the bedside chair, is awake, alert and or iented 3 and is in no acute distress. Denies any complaints of shortness of breath or pain at this time. States he feels much improved today, and feels much improved mentally as well, Zoloft 50 mg by mouth daily was initiated yesterday. Oxygen saturations are 97% on room air and he is achieving 1500 mL on his incentive spirometry. Remote telemetry showing normal sinus rhythm heart rate 90 BPM. Nephrology ordered Lasix 40 mg 1 yesterday with good diuresis. The patient reports he has been up ambulating in the cardiac stepdown unit hallway with minimal assistance from nursing staff. He remains at afebrile the last 24 hours. Discharge planning is in place. Objective - Vital Signs Vital signs: Vital Signs Temp 98.1 F 10/12/21 07:43 Pulse 94 10/12/21 07:43 Resp 18 10/12/21 07:43 BP 141/87 10/12/21 07:43 Pulse Ox 97 10/12/21 07:43 Intake & Output 10/11/21 10/12/21 10/12/21 18:59 06:59 18:59 Intake Total 840 200 Output Total 1160 900 Balance -320 -700 Weight 128.5 kg Intake: Oral 840 200 Output: Urine 1160 900 Other: Voiding Method Toilet Toilet Urinal Urinal # Voids 1 ABP, PAP, CO, CI - Last Documented Arterial Blood Pressure 104/51 Pulmonary Artery Pressure 23/11 Cardiac Output 7.4 Cardiac Index 3.1 - Exam CONSTITUTIONAL: Sitting up to the bedside chair on the cardiac stepdown unit, appears comfortable, cooperative, no apparent acute distress. HEENT: Neck is supple, no JVD, no lymphadenopathy. RESPIRATORY: Lungs sounds essentially clear throughout, diminished to his bilateral bases. Respirations are symmetrical and nonlabored. Currently on room air with oxygen saturations 97%. Able to achieve 1500 mL on his incentive spirometry. Strong cough. CARDIOVASCULAR: Regular rhythm and rate. S1 and S2 present, negative for S3, gallop or murmur. Sternum is stable. Palpable peripheral pulses bilaterally, generalized +1 edema. No calf pain or tenderness noted. Heart hugger in place with patient demonstrating appropriate use. Knee-high RHIANNON hose and sequential compression devices in place to his bilateral lower extremities. GASTROINTESTINAL: Abdomen soft, nontender, nondistended. Active bowel sounds present 4 quadrants. Tolerating diet. Passing flatus. No guarding or rigidity. Bowel movement on 10/10/2021. GENITOURINARY: Continues to void. 400 mL urine output in the last 8 hours. INTEGUMENTARY: Skin is warm and dry with no evidence of clubbing or cyanosis. Midline sternal incision clean dry and well approximated, covered with dry intact dressing. Left lower extremity EVH sites well approximated without redness or drainage. Left arm radial artery harvest sites clean, dry and approximated. No drainage or redness is present. NEUROLOGIC: Cranial nerves II through XII intact. No focal deficits. MUSKULOSKELETAL: Able to move all extremities, strength equal bilaterally. PSYCHIATRIC: Alert and oriented to person place and time, flat affect, intact judgment and insight. - Allied health notes Allied health notes reviewed: nursing - Labs CBC & Chem 7: 10/11/21 09:08 10/11/21 09:08 Labs: Abnormal Lab Results - Last 24 Hours (Table) 10/11/21 10/11/21 10/11/21 Range/Units 09:08 09:08 11:56 RBC 2.68 L (4.30-5.90) m/uL Hgb 7.8 L (13.0-17.5) gm/dL Hct 25.8 L (39.0-53.0) % MCHC 30.4 L (31.0-37.0) g/dL RDW 15.8 H (11.5-15.5) % Sodium 135 L (137-145) mmol/L Carbon Dioxide 21 L (22-30) mmol/L BUN 53 H (9-20) mg/dL Creatinine 2.56 H (0.66-1.25) mg/dL Glucose 159 H (74-99) mg/dL POC Glucose (mg/dL) 151 H (75-99) mg/dL 10/11/21 10/11/21 10/12/21 Range/Units 16:58 20:33 01:54 RBC (4.30-5.90) m/uL Hgb (13.0-17.5) gm/dL Hct (39.0-53.0) % MCHC (31.0-37.0) g/dL RDW (11.5-15.5) % Sodium (137-145) mmol/L Carbon Dioxide (22-30) mmol/L BUN (9-20) mg/dL Creatinine (0.66-1.25) mg/dL Glucose (74-99) mg/dL POC Glucose (mg/dL) 114 H 128 H 130 H (75-99) mg/dL 10/12/21 Range/Units 05:43 RBC (4.30-5.90) m/uL Hgb (13.0-17.5) gm/dL Hct (39.0-53.0) % MCHC (31.0-37.0) g/dL RDW (11.5-15.5) % Sodium (137-145) mmol/L Carbon Dioxide (22-30) mmol/L BUN (9-20) mg/dL Creatinine (0.66-1.25) mg/dL Glucose (74-99) mg/dL POC Glucose (mg/dL) 136 H (75-99) mg/dL - Imaging and Cardiology Chest x-ray: report reviewed, image reviewed Assessment and Plan Assessment: 1. Triple-vessel diffuse coronary artery disease with previous myocardial infarction and previous stenting 5, most recently 2008, status post four-vessel CABG 2. Preserved left ventricular function, EF 55-60% 3. Hypertension 4. Hyperlipidemia, treated, cholesterol 138, LDL 59.2, triglycerides 260 5. Znn-urrdgcr-wwcstylmc diabetes, hemoglobin A1c 6.3% 6. Morbid obesity 7. Chronic kidney disease stage III 8. Obstructive sleep apnea currently not using CPAP 9. History of anemia 10. Gout 11. GERD 12. Current light tobacco dependence, mild COPD with FEV1 62% of predicted 13. Family history of premature coronary artery disease with both parents diagnosed before the age of 60 14. Vaccinated and boosted against Covid 15. Postoperative acute blood loss anemia, expected Plan: 1. Continue aspirin, statin, Plavix, and beta brandy. Will increase metoprolol tartrate to 100 mg by mouth twice a day. 2. Continue amlodipine 5 mg by mouth daily for radial artery spasm prophylaxis. 3. Wean O2 as tolerated. Encourage incentive spirometry use 10 times every hour while awake. Bronchodilators, BiPAP per pulmonology 4. Increase activity, ambulate as tolerated. PT/OT/cardiac rehab following. 5. Will monitor daily labs and chest x-rays. Electrolyte replacement per protocol. Avoid nephrotoxins, decision regarding lasix, IV iron per nephrology. 6. GI/DVT prophylaxis. 7. Insulin management per primary care service. 8. Pain control with current medication regimen. Avoid Toradol secondary to kidney disease. 9. Discharge planning is in place, anticipate discharge to inpatient rehab or subacute rehab within the next 48 hours. 10. Strict accurate intake and output. 11. Importance of risk modification including smoking cessation discussed with the patient. 12. More recommendations to follow based on patient's clinical course. Time with Patient: Greater than 30
[2021-10-12] MEDS: SODIUM FERRIC GLUCONAT-SUCROSE 125 MG in SODIUM CHLORIDE 0.9% 100 ML IVPB SCH (10:11)
[2021-10-12] MEDS: HEPARIN SODIUM,PORCINE/PF 5,000 UNIT/0.5 ML SYRINGE SQ SCH ×2 (10:11→15:33)
[2021-10-12] MEDS: INSULIN DETEMIR (LEVEMIR) 100 UNIT/ML SYR SQ SCH (10:12)
[2021-10-12] MEDS: CLOPIDOGREL 75 MG TAB PO SCH (10:12)
[2021-10-12] MEDS: SERTRALINE 50 MG TAB PO SCH (10:12)
[2021-10-12] MEDS: METOPROLOL TARTRATE 50 MG TAB PO SCH ×2 (10:12→20:55)
[2021-10-12] MEDS: amLODIPine 5 MG TAB PO SCH (10:12)
[2021-10-12] MEDS: ASPIRIN 325 MG TAB PO SCH (10:12)
[2021-10-12 10:21] LABS: Calcium 8.6 mg/dL (8.4-10.2); Potassium 4.7 mmol/L (3.5-5.1)
[2021-10-12 10:37] LABS: Anisocytosis Slight; Basophils # (A) 0.1 k/uL (0-0.2); Basophils % (A) 1 %; Eosinophils # (A) 0.2 k/uL (0-0.7); Eosinophils % (A) 3 %; HCT 22.4 % (39.0-53.0); Hypochromasia Marked; Lymphocytes % (A) 14 %; MCH 29.5 pg (25.0-35.0); MCHC 31.1 g/dL (31.0-37.0); MCV 94.6 fL (80.0-100.0); Mean Platelet Volume 7.7; Monocytes # (A) 0.4 k/uL (0-1.0); Monocytes % (A) 6 %; Neutrophils # (A) 5.5 k/uL (1.3-7.7); Neutrophils % (A) 74 %; Platelet Count 228 k/uL (150-450); RBC 2.36 m/uL (4.30-5.90); RDW 16.4 % (11.5-15.5); WBC 7.5 k/uL (3.8-10.6)
[2021-10-12] MEDS ORDERED: FUROSEMIDE 10 MG/ML 4 ML VIAL IV STA (11:36)
[2021-10-12 12:22] LABS: Glucose,Whole Blood 101 mg/dL (75-99)
--- NOTE | 2021-10-12 12:41 | P.PN ---
Subjective Progress Note Date: 10/12/21 The patient is a 51-year-old male who is currently admitted after undergoing four-vessel bypass surgery. He was interviewed and examined resting comfortably in bed. He states he have some mild midsternal chest discomfort and overall muscle aches. He states he does not have any dyspnea at rest or when moving, however if he ambulates he does have dyspnea after he sits down. No orthopnea. No heart racing or fluttering. GENERAL: Well-appearing, well-nourished and in no acute distress. NECK: Supple without JVD or thyromegaly. LUNGS: Breath sounds clear to auscultation bilaterally. Respiration equal. Low lung volumes. No wheezes, rales or rhonchi. HEART: Regular rate and rhythm without murmurs, rubs or gallops. S1 and S2 heard. EXTREMITIES: Normal range of motion. Moderate bilateral pitting edema. No clubbing or cyanosis. Peripheral pulses intact and strong. VITALS: Blood pressure 126/71, pulse 71, respiratory rate 18, 98.1F TELEMETRY: Sinus mechanism. No significant ectopy overnight LABS: WBC 7.5, hemoglobin 7.0, hematocrit 22.4, platelet 228, sodium 134, BUN 54, creatinine 2.2 IMPRESSION: Multivessel coronary artery disease, status post four-vessel CABG Hypertension Hyperlipidemia Diabetes mellitus Tobacco use COPD Chronic kidney disease PLAN: Continue current medication regimen Increase activity Encourage pulmonary hygiene Postoperative management per CT surgery Further recommendations with clinical course The patient was interviewed and examined by both the nurse practitioner in coordinating physician. Plan of care has been reviewed and agreed upon by Dr. Rebolledo. Objective - Vital Signs Vital signs: Vital Signs Temp 98.1 F 10/12/21 07:43 Pulse 71 10/12/21 12:19 Resp 18 10/12/21 12:19 BP 126/71 10/12/21 12:19 Pulse Ox 94 L 10/12/21 12:19 Intake & Output 10/11/21 10/12/21 10/12/21 18:59 06:59 18:59 Intake Total 840 200 240 Output Total 2489 981 5331 Balance -320 700 1289 Weight 128.5 kg Intake: Oral 840 200 240 Output: Urine 9058 879 9950 Other: Voiding Method Toilet Toilet Toilet Urinal Urinal Urinal # Voids 1 ABP, PAP, CO, CI - Last Documented Arterial Blood Pressure 104/51 Pulmonary Artery Pressure 23/11 Cardiac Output 7.4 Cardiac Index 3.1 - Labs CBC & Chem 7: 10/12/21 09:04 10/12/21 09:04 Labs: Abnormal Lab Results - Last 24 Hours (Table) 10/11/21 10/11/21 10/12/21 Range/Units 16:58 20:33 01:54 RBC (4.30-5.90) m/uL Hgb (13.0-17.5) gm/dL Hct (39.0-53.0) % RDW (11.5-15.5) % Sodium (137-145) mmol/L Chloride (98-107) mmol/L Carbon Dioxide (22-30) mmol/L BUN (9-20) mg/dL Creatinine (0.66-1.25) mg/dL Glucose (74-99) mg/dL POC Glucose (mg/dL) 114 H 128 H 130 H (75-99) mg/dL 10/12/21 10/12/21 10/12/21 Range/Units 05:43 09:04 09:04 RBC 2.36 L (4.30-5.90) m/uL Hgb 7.0 L (13.0-17.5) gm/dL Hct 22.4 L (39.0-53.0) % RDW 16.4 H (11.5-15.5) % Sodium 134 L (137-145) mmol/L Chloride 108 H (98-107) mmol/L Carbon Dioxide 20 L (22-30) mmol/L BUN 54 H (9-20) mg/dL Creatinine 2.22 H (0.66-1.25) mg/dL Glucose 197 H (74-99) mg/dL POC Glucose (mg/dL) 136 H (75-99) mg/dL 10/12/21 Range/Units 12:14 RBC (4.30-5.90) m/uL Hgb (13.0-17.5) gm/dL Hct (39.0-53.0) % RDW (11.5-15.5) % Sodium (137-145) mmol/L Chloride (98-107) mmol/L Carbon Dioxide (22-30) mmol/L BUN (9-20) mg/dL Creatinine (0.66-1.25) mg/dL Glucose (74-99) mg/dL POC Glucose (mg/dL) 101 H (75-99) mg/dL
--- NOTE | 2021-10-12 13:01 | PN ---
PROGRESS NOTE Patient is seen for followup for acute kidney injury on top of chronic kidney disease. The patient is status post coronary artery bypass surgery. His renal function continues to improve. He did have ATN postoperatively and has been hypervolemic. He has received a dose of IV Lasix yesterday and has had good urine output with 24 hour output at about 2 L. PHYSICAL EXAMINATION: On examination today, blood pressure 141/87, heart rate 94 per minute. Patient is afebrile. Examination of the heart S1, S2. Examination of the lungs, bilateral breath sounds are heard. Decreased breath sounds at the bases. Abdomen is soft, nontender. There is edema of the lower extremities noted bilaterally as well as edema of the upper extremities. LAB: Show sodium 134, potassium 4.7, BUN 54, creatinine 2.2. ASSESSMENT: 1. Acute kidney injury ATN postoperatively secondary to hemodynamics changes, currently improved. Good urine output. We will repeat another dose of IV Lasix today. 2. Hyperkalemia. Encourage increased oral intake, particularly protein and repeat IV Lasix today. 3. Anemia. No active bleeding noted. Severe iron deficiency noted. Currently maintained on IV iron. The patient has received 2 doses of iron. I will add Aranesp. 4. Status post coronary artery bypass surgery, currently doing well. 5. Chronic kidney disease NKF stage 3B with baseline creatinine 1.5-1.6 mg/dL secondary to nephrosclerosis. PLAN: Repeat IV Lasix today. Add Aranesp. Repeat labs in a.m. Avoid hypotension. We can DC the midodrine now. MMODL / IJN: [id number] /
--- NOTE | 2021-10-12 13:59 | P.PN ---
Subjective Progress Note Date: 10/12/21 Principal diagnosis: Multivessel coronary artery disease On 10/10/2021 patient seen in follow-up on selective care unit, today's postoperative day #3, status post four-vessel coronary artery bypass grafting on 10/07/2021. Patient is sitting up in the recliner, breathing comfortably, he is currently on 4 L of oxygen pulse ox of 96%, denies any specific complaints, he was able to ambulate, he does get short of breath with exertion, he looks generally swollen, but no acute distress, his chest tubes have been discontinued, his IVs have been discontinued, patient is currently hep-locked, he is in sinus mechanism, hemodynamically has been stable, today's chest x-ray showing cardiomegaly, no acute pulmonary process. Blood pressure is stable. His incisions midsternal, his chest tube insertion sites, and leg incision sites are clean dry and intact. Today's labs have been reviewed, his white count is 9.9, hemoglobin is 7.1, and patient is being started on iron supplements, sodium is 132, potassium is 5.5, CO2 is 20, BUN is 47, creatinine is 3.05. On 10/12/2021 patient seen in follow-up on selective care unit, he is awake and alert, in no acute distress, he is resting comfortably in bed, is currently on room air with a pulse ox of 94-97%, today's chest x-ray is still pending, today is postoperative day #5, status post four-vessel coronary artery bypass grafting. No acute events overnight. His been working on incentive spirometer, he has been tolerating ambulation, he achieves 1.5 L on incentive spirometer. Today's labs have been reviewed, his white blood cell, 7.5, hemoglobin is 7.0, sodium is 134, potassium is 4.7, chloride is 108, CO2 is 20, BUN is 54, creatinine is 2.2. Generally he remains swollen, and his been getting diuretics, yesterday he received 1 dose of Lasix 40 mg, and today he received another dose of diuretics ordered by nephrology. Follow his renal function has improved from its peak and creatinine was 3.05 on 10/10/2021 and is currently down to 2.2 on today's labs. Today's hemoglobin is 7.0, patient remains on iron supplementation Objective - Vital Signs Vital signs: Vital Signs Temp 98.1 F 10/12/21 07:43 Pulse 71 10/12/21 12:19 Resp 18 10/12/21 12:19 BP 126/71 10/12/21 12:19 Pulse Ox 94 L 10/12/21 12:19 Intake & Output 10/11/21 10/12/21 10/12/21 18:59 06:59 18:59 Intake Total 840 200 240 Output Total 0402 407 6592 Balance -320 -700 -1285 Weight 128.5 kg Intake: Oral 840 200 240 Output: Urine 6976 028 5524 Other: Voiding Method Toilet Toilet Toilet Urinal Urinal Urinal # Voids 1 ABP, PAP, CO, CI - Last Documented Arterial Blood Pressure 104/51 Pulmonary Artery Pressure 23/11 Cardiac Output 7.4 Cardiac Index 3.1 - Exam GENERAL EXAM: Alert, 51-year-old on room air, breathing comfortably, resting comfortably in bed, laying flat, room air pulse ox is 94-97% comfortable in no apparent distress. HEAD: Normocephalic/atraumatic. EYES: Normal reaction of pupils, equal size. Conjunctiva pink, sclera white. NOSE: Clear with pink turbinates. THROAT: No erythema or exudates. NECK: No masses, no JVD, no thyroid enlargement, no adenopathy. CHEST: No chest wall deformity. Symmetrical expansion. Midsternal incision is clean dry and intact, chest tube sites are clean dry and intact LUNGS: Equal air entry with no crackles, wheeze, rhonchi or dullness. CVS: Regular rate and rhythm, normal S1 and S2, no gallops, no murmurs, no rubs ABDOMEN: Soft, nontender. No hepatosplenomegaly, normal bowel sounds, no guard ing or rigidity. EXTREMITIES: No clubbing, nonpitting edema involving upper and lower extremities, no cyanosis, 2+ pulses and upper and lower extremities. MUSCULOSKELETAL: Muscle strength and tone normal. SPINE: No scoliosis or deformity SKIN: No rashes, leg incisions are clean dry and intact CENTRAL NERVOUS SYSTEM: Alert and oriented -3. No focal deficits, tone is normal in all 4 extremities. PSYCHIATRIC: Alert and oriented -3. Appropriate affect. Intact judgment and insight. - Labs CBC & Chem 7: 10/12/21 09:04 10/12/21 09:04 Labs: Abnormal Lab Results - Last 24 Hours (Table) 10/11/21 10/11/21 10/12/21 Range/Units 16:58 20:33 01:54 RBC (4.30-5.90) m/uL Hgb (13.0-17.5) gm/dL Hct (39.0-53.0) % RDW (11.5-15.5) % Sodium (137-145) mmol/L Chloride (98-107) mmol/L Carbon Dioxide (22-30) mmol/L BUN (9-20) mg/dL Creatinine (0.66-1.25) mg/dL Glucose (74-99) mg/dL POC Glucose (mg/dL) 114 H 128 H 130 H (75-99) mg/dL 10/12/21 10/12/21 10/12/21 Range/Units 05:43 09:04 09:04 RBC 2.36 L (4.30-5.90) m/uL Hgb 7.0 L (13.0-17.5) gm/dL Hct 22.4 L (39.0-53.0) % RDW 16.4 H (11.5-15.5) % Sodium 134 L (137-145) mmol/L Chloride 108 H (98-107) mmol/L Carbon Dioxide 20 L (22-30) mmol/L BUN 54 H (9-20) mg/dL Creatinine 2.22 H (0.66-1.25) mg/dL Glucose 197 H (74-99) mg/dL POC Glucose (mg/dL) 136 H (75-99) mg/dL 10/12/21 Range/Units 12:14 RBC (4.30-5.90) m/uL Hgb (13.0-17.5) gm/dL Hct (39.0-53.0) % RDW (11.5-15.5) % Sodium (137-145) mmol/L Chloride (98-107) mmol/L Carbon Dioxide (22-30) mmol/L BUN (9-20) mg/dL Creatinine (0.66-1.25) mg/dL Glucose (74-99) mg/dL POC Glucose (mg/dL) 101 H (75-99) mg/dL Assessment and Plan Plan: Assessment: #1. Symptomatic multivessel coronary artery disease, status post 4 vessel coronary artery bypass surgery on 10/07/2021. #2. Routine post thoracotomy ventilator management, patient is doing very well, he is currently on 4 L of oxygen, chest x-ray is clear #3. History of coronary artery disease with previous myocardial infarction and stenting 5 #4. History of essential hypertension #6. Hyperlipidemia #7. Diabetes mellitus type 2 #8. Suspect COPD, preop FEV1 was 62% of predicted #9. Sleep apnea syndrome not using CPAP therapy, his BMI is 41.5 kg/m #10. History of anemia #11. Acute on chronic kidney disease, related to ATN, today's creatinine is up to 3.05 #12. Gout #13. Patient has received his COVID-19 oxygenation including booster shot Plan: Continue encouraging deep breathing and coughing and incentive spirometer use Patient is on room air, breathing comfortably Renal function is improving Diuretics per nephrology Today's labs have been noted Today's chest x-ray still pending No acute events overnight We'll continue to follow with CT surgery, and nephrology I performed a history & physical examination of the patient and discussed their management with my nurse practitioner, Michelle Cadet. I reviewed the nurse practitioner's note and agree with the documented findings and plan of care. Lung sounds are positive for dim breath sounds throughout the lung mackey. The findings and the impression was discussed with the patient. I attest to the documentation by the nurse practitioner. Time with Patient: Less than 30
[2021-10-12] MEDS ORDERED: DARBEPOETIN ALFA 60 MCG/0.3 ML SYRINGE SQ SCH (14:00)
--- NOTE | 2021-10-12 15:58 | P.PN ---
Progress Note - Text Progress Note Date: 10/12/21 Presenting complaint: Chest pain History of presenting complaint: This is a 51-year-old patient was chronic stable medical conditions include diabetes mellitus type 2, hypertension, CK D stage III, GERD, gout with known coronary artery disease and prior 5 stents. Patient had been present for 15 years really has not prolonged cold. [facility] to [facility] with chest hour left- sided precordial pain. Admitted with unstable angina. Put on IV heparin. Troponins were negative. Patient was transferred to [facility] in [place] for further intervention. Patient had a nuclear stress test that showed reversibility. Patient yesterday underwent cardiac catheterization was found to have triple-vessel disease. Cardiothoracic surgery's been consulted. Currently no chest pain. 2-D echo showed EF of 55-60% October 05: Sitting up in bed. No chest pain. Oral intake good. Consult nephrology. October 06: Comfortable. No chest pain no shortness of breath. Being scheduled for coronary bypass tomorrow. GPS Tether has been taken of a by the police deputy. PAMELA inhibitor held by nephrology. October 07: ICU. Ventilator 50/10. Quadruple coronary bypass. 2 mediastinal one chest tube. Drips include cleviprex, propofol, insulin, nitroglycerin. Sedated. Sinus rhythm. October 08: ICU: Patient been extubated. Sitting up in a chair. Chest tubes in place. On a clear liquid diet. Some shortness of breath. Sinus rhythm. Sinus rhythm. Martin catheter. Awake. Tired. Received IV amiodarone.. 6 L nasal cannula October 09: ICU. Feeling better. Tolerated liquid diet today. 4 L nasal cannula. Chest use a bit removed. Martin cath has been removed. Did walk about 100 feet. Patient is off the insulin drip. Will be moved off the ICU. Breathing better. October 10: Moved out of the ICU. Some shortness of breath. Eating fair. Did walk a bit. Up in chair. 4 L nasal cannula. October 11: Feeling tired today. Shortness of breath. Did eat some. Up in a chair. Has not slept well. 95% on room air October 12: Breathing better. Oral intake good. Walking the hallway. Sleeping better. Patient also has received IV Ferrlecit. Review of systems: Was done for constitutional, cardiovascular, GI, pulmonary. relevant finding as above Active Medications Acetaminophen (Acetaminophen Tab 325 Mg Tab) 650 mg PO Q4HR PRN PRN Reason: Fever and/ or Pain Last Admin: 10/11/21 09:46 Dose: 650 mg Documented by: Albuterol/Ipratropium (Ipratropium-Albuterol 3 Ml Neb) 3 ml INHALATION RT-Q2H PRN PRN Reason: Shortness Of Breath Or Wheezing Albuterol/Ipratropium (Ipratropium-Albuterol 3 Ml Neb) 3 ml INHALATION RT-QID [facility] Last Admin: 10/12/21 11:28 Dose: Not Given Documented by: Amlodipine Besylate (Amlodipine 5 Mg Tab) 5 mg PO DAILY [facility] Last Admin: 10/12/21 10:12 Dose: 5 mg Documented by: Ascorbic Acid (Ascorbic Acid 500 Mg Tab) 500 mg PO BID-W/MEALS [facility] Last Admin: 10/12/21 06:54 Dose: 500 mg Documented by: Aspirin (Aspirin 325 Mg Tab) 325 mg PO DAILY [facility] Last Admin: 10/12/21 10:12 Dose: 325 mg Documented by: Atorvastatin Calcium (Atorvastatin 80 Mg Tab) 80 mg PO HS [facility] Last Admin: 10/11/21 20:40 Dose: 80 mg Documented by: Benzocaine/Menthol (Benzocaine/Menthol Lozeng 1 Each Lozenge) 1 each MUCOUS MEM Q2H PRN PRN Reason: Sore Throat Bisacodyl (Bisacodyl 10 Mg Supp) 10 mg RECTAL DAILY PRN PRN Reason: Constipation Clopidogrel Bisulfate (Clopidogrel 75 Mg Tab) 75 mg PO DAILY [facility] Last Admin: 10/12/21 10:12 Dose: 75 mg Documented by: Darbepoetin Heladio (Darbepoetin Heladio 60 Mcg/0.3 Ml Syringe) 60 mcg SQ Q7D [facility] Last Admin: 10/12/21 15:32 Dose: 60 mcg Documented by: Ferrous Sulfate (Ferrous Sulfate 325 Mg Tab) 325 mg PO BID-W/MEALS [facility] Last Admin: 10/12/21 06:54 Dose: 325 mg Documented by: Glipizide (Glipizide 5 Mg Tab) 5 mg PO AC-BRKFST [facility] Last Admin: 10/12/21 06:54 Dose: 5 mg Documented by: Heparin Sodium (Porcine) (Heparin Sodium,Porcine/Pf 5,000 Unit/0.5 Ml Syringe) 5,000 unit SQ Q8HR [facility] Last Admin: 10/12/21 15:33 Dose: 5,000 unit Documented by: Amiodarone HCl 150 mg/ (Dextrose/Water) 103 mls @ 618 mls/hr IV .Q10M PRN; Protocol PRN Reason: A.FIB/FLUTTER Amiodarone HCl 360 mg/ (Dextrose/Water) 207.2 mls @ 34.533 mls/hr IV .Q6H PRN; Protocol PRN Reason: A.FIB/FLUTTER Amiodarone HCl 450 mg/ (Dextrose/Water) 250 mls @ 16.667 mls/hr IV .Q15H PRN; Protocol PRN Reason: A.FIB/FLUTTER Insulin Aspart (Insulin Aspart (Novolog) 100 Unit/Ml Vial) 0 unit SQ [id number] [facility]; Protocol Last Admin: 10/12/21 12:15 Dose: Not Given Documented by: Insulin Detemir (Insulin Detemir (Levemir) 100 Unit/Ml Syr) 20 unit SQ DAILY@0700 [facility] Last Admin: 10/12/21 10:12 Dose: 20 unit Documented by: Magnesium Hydroxide (Magnesium Hydroxide 2,400 Mg/10 Ml Cup) 2,400 mg PO BID PRN PRN Reason: Constipation Last Admin: 10/10/21 07:49 Dose: 2,400 mg Documented by: Metoclopramide HCl (Metoclopramide 5 Mg/Ml 2 Ml Vial) 10 mg IVP Q4H PRN PRN Reason: Nausea And Vomiting Last Admin: 10/10/21 07:49 Dose: 10 mg Documented by: Metoprolol Tartrate (Metoprolol Tartrate 50 Mg Tab) 100 mg PO BID [facility] Last Admin: 10/12/21 10:12 Dose: 100 mg Documented by: Miscellaneous Information (Potassium Replacement Protocol 1 Each Misc) 1 each MISCELLANE DAILY PRN; Protocol PRN Reason: Per Protocol Miscellaneous Information (Magnesium Replacement Protocol 1 Each Misc) 1 each MISCELLANE DAILY PRN; Protocol PRN Reason: Per Protocol Miscellaneous Information (Phosphorus Replacement Protoco 1 Each Misc) 1 each MISCELLANE DAILY PRN; Protocol PRN Reason: Per Protocol Ondansetron HCl (Ondansetron 4 Mg/2 Ml Vial) 4 mg IVP Q6HR PRN PRN Reason: Nausea And Vomiting Last Admin: 10/08/21 06:36 Dose: 4 mg Documented by: Pantoprazole Sodium (Pantoprazole 40 Mg Tablet) 40 mg PO AC-BRKFST [facility] Last Admin: 10/12/21 06:54 Dose: 40 mg Documented by: Senna/Docusate Sodium (Sennosides-Docusate Sodium 1 Each Tab) 2 each PO [facility] Last Admin: 10/11/21 20:40 Dose: Not Given Documented by: Sertraline HCl (Sertraline 50 Mg Tab) 50 mg PO DAILY [facility] Last Admin: 10/12/21 10:12 Dose: 50 mg Documented by: Sodium Chloride (Sodium Chloride 0.9% Flush 10 Ml Syringe) 10 ml IV BID [facility] Last Admin: 10/12/21 10:12 Dose: 10 ml Documented by: Zolpidem Tartrate (Zolpidem 5 Mg Tab) 5 mg PO [facility] Last Admin: 10/11/21 20:38 Dose: 5 mg Documented by: Past medical history to include: Diabetes mellitus type 2, CAD with 5 stents, hypertension, CK D stage III, GERD, gout, obstructive sleep apnea, bipolar Social history: Patient average 3-4 packs a day for close to 40 years. Now a few cigarettes a day. Currently living at half a house. Was in the [facility] for last 15 years. Family history: Mesothelioma, heart disease Physical examination: VITAL SIGNS: 98, 74, 18, 131/67, 95% room air GENERAL: , Awake, comfortable EYES: Pupils equal. Conjunctiva normal. HEENT: External appearance of nose and ears normal, oral cavity normal NECK: JVD unable to assess; masses not palpable. HEART: First and second heart sounds are normal; no edema. LUNGS: Respiratory rate normal; decreased breath sounds. ABDOMEN: Soft, nontender, liver spleen not palpable, no masses palpable. PSYCH: AO 3, mood and affect tired Dermatology: Inspection skin grossly intact. No obvious abnormality on palpation: Musculoskeletal: Inspection no clubbing cyanosis. Palpation: No obvious bony abnormality INVESTIGATIONS, reviewed in the clinical context: October 12: White count 7.5 hemoglobin 7 platelets 228 potassium 4.7 and 54 creatinine 2.2 October 11: White count 8.1 hemoglobin 7.8 potassium 4.8. 53 creatinine 2.56 October 10: White count 9.9 hemoglobin 7.1 platelets 161 sodium 132 potassium 5.5. 47 creatinine 3.05 October 09: White count 10.9 hemoglobin 7.7 platelets 129 potassium 4.9. 28 creatinine 2.2 October 08: White count 8.7 hemoglobin 8.2 platelets 141 potassium 5.2. 24 creatinine 1.51 albumin 2.9. Chest x-ray film personally reviewed by me: No infiltrates. Telemetry: Personally reviewed by me sinus rhythm October 07: White count 5 hemoglobin 7.3 platelets 85 potassium 4.7 BUN 24 creatinine 1.34 October 06: Potassium 4.3 creatinine 1.75 Renal ultrasound: Difficult exam due to patient body habitus. October 05: Hemoglobin 11.5 creatinine 1.67 White count is 6.3 hemoglobin 11.9 platelets 189 sodium 139 potassium 4.6 BUN 28 creatinine 1.55 Accu-Cheks noted HbA1c 6.3 TSH 1.6 Acute hepatitis panel for A, B, and C: Not reactive Coronavirus [PCR]: Not detected 2-D echocardiogram: Moderate concentric LVH. EF 55-60% Chest x-ray film personally reviewed by me-cardiomegaly. Telemetry tracings personally reviewed by me: Sinus rhythm, T-wave changes Assessment and plan: -Quadruple coronary bypass. 4 triple-vessel CAD On October [address] Renee -Acute hypoxic respiratory failure: Improved Ventilator support: Extubated. Now off oxygen -Coronary artery disease with prior 5 stents Aspirin , Lopressor 25 mg 3 times a day. Amlodipine 5 mg a day -COPD in a previous smoker DuoNeb 3 times a day -Hyperlipidemia Lipitor 80 mg daily at bedtime -Chronic kidney disease stage III likely from diabetic nephropathy and nephrosclerosis Follow renal function closely. nephrology consult -Normocytic anemia of chronic disease from CK D -Acute postprocedure blood loss anemia, expected from surgery Follow H&H. IV Ferrlecit 125 mg . By mouth iron -Acute dilutional thrombocytopenia: Improved -Diabetes mellitus type 2 on oral hypoglycemic Insulin drip-discontinued. Follow Accu-Cheks with sliding scale. Glucotrol -Essential hypertension Amlodipine, Lopressor -Acute insomnia from multiple medical problems Ambien 5 mg daily at bedtime -Chronic gout Allopurinol 100 mg a day -Morbid obesity BMI 40.2 Doing better. Continue current medication treatment plan. Discussed with patient.
[2021-10-12 17:03] LABS: Glucose,Whole Blood 112 mg/dL (75-99)
[2021-10-12 20:37] LABS: Glucose,Whole Blood 177 mg/dL (75-99)
[2021-10-12] MEDS: ZOLPIDEM 5 MG TAB PO SCH (20:55)
[2021-10-12] MEDS: ATORVASTATIN 80 MG TAB PO SCH (20:55)
[2021-10-12] MEDS: SENNOSIDES-DOCUSATE SODIUM 1 EACH TAB PO SCH (20:55)
[2021-10-13] MEDS: HEPARIN SODIUM,PORCINE/PF 5,000 UNIT/0.5 ML SYRINGE SQ SCH ×3 (00:13→15:01)
[2021-10-13] MEDS: INSULIN ASPART (NovoLOG) 100 UNIT/ML VIAL SQ SCH ×5 (02:10→21:30)
[2021-10-13 03:20] LABS: Glucose,Whole Blood 134 mg/dL (75-99)
[2021-10-13] MEDS: METOPROLOL TARTRATE 50 MG TAB PO SCH ×2 (05:14→21:30)
[2021-10-13] MEDS ORDERED: DEXTROSE 5% IN WATER 100 ML with AMIODARONE 150 MG IV ONE (06:08)
[2021-10-13] MEDS ORDERED: AMIODARONE IN DEXTROSE,ISO-OSM 150 MG/100 ML PLAST..BAG IV ONE ×2 (07:00→08:36)
[2021-10-13] MEDS: INSULIN DETEMIR (LEVEMIR) 100 UNIT/ML SYR SQ SCH (07:00)
[2021-10-13] MEDS: PANTOPRAZOLE 40 MG TABLET PO SCH (07:01)
[2021-10-13] MEDS: glipiZIDE 5 MG TAB PO SCH (07:01)
[2021-10-13] MEDS: ASCORBIC ACID 500 MG TAB PO SCH ×2 (07:01→15:01)
[2021-10-13] MEDS: FERROUS SULFATE 325 MG TAB PO SCH ×2 (07:01→15:01)
[2021-10-13 07:03] LABS: Glucose,Whole Blood 150 mg/dL (75-99)
--- NOTE | 2021-10-13 07:46 | XR ---
EXAMINATION TYPE: XR chest 1V portable DATE OF EXAM: 10/13/2021 COMPARISON: 10/11/2021 INDICATION: Postop CABG TECHNIQUE: Single frontal view of the chest is obtained. FINDINGS: The heart size is enlarged. The pulmonary vasculature is normal. The lungs are clear. Sternotomy wires are in the midline from prior CABG. IMPRESSION: 1. No acute pulmonary process.
[2021-10-13] MEDS: SERTRALINE 50 MG TAB PO SCH (08:36)
[2021-10-13] MEDS ORDERED: AMIODARONE IN DEXTROSE,ISO-OSM 360 MG/200 ML PLAST..BAG IV ONE (08:36)
[2021-10-13] MEDS: amLODIPine 5 MG TAB PO SCH (08:36)
[2021-10-13] MEDS: CLOPIDOGREL 75 MG TAB PO SCH (08:36)
[2021-10-13] MEDS: ASPIRIN 325 MG TAB PO SCH (08:36)
[2021-10-13 08:59] LABS: Anisocytosis Slight; HCT 23.8 % (39.0-53.0); HGB 7.4 gm/dL (13.0-17.5); Hypochromasia Marked; MCHC 31.1 g/dL (31.0-37.0); MCV 96.4 fL (80.0-100.0); Macrocytosis Slight; Mean Platelet Volume 7.7; Platelet Count 227 k/uL (150-450); RBC 2.47 m/uL (4.30-5.90); RDW 16.5 % (11.5-15.5); WBC 7.9 k/uL (3.8-10.6)
[2021-10-13 09:09] LABS: Calcium 8.6 mg/dL (8.4-10.2); Magnesium 1.9 mg/dL (1.6-2.3); Potassium 4.6 mmol/L (3.5-5.1)
[2021-10-13] MEDS: IPRATROPIUM-ALBUTEROL 3 ML NEB INHALATION SCH ×4 (09:22→20:31)
[2021-10-13] MEDS: MAGNESIUM SULFATE-D5W PMX 1 GM in DEXTROSE/WATER 1 100ML.BAG IVPB SCH ×2 (10:48→13:21)
[2021-10-13] MEDS ORDERED: FUROSEMIDE 10 MG/ML 2 ML VIAL IV ONE (11:35)
--- NOTE | 2021-10-13 11:35 | P.PN ---
Subjective Patient is seen in follow-up for acute kidney injury on chronic kidney disease. Renal function improving. Maintain on amiodarone drip. Good urine output. Denies chest pain or shortness of breath. Oral intake good. Vital signs are stable. General: The patient appeared well nourished and normally developed. HEENT: Head exam is unremarkable. LUNGS: Breath sounds decreased. HEART: Rate and Rhythm are regular. ABDOMEN: Soft, no distention. EXTREMITITES: 1+ edema. Objective - Vital Signs Vital signs: Vital Signs Temp 98 F 10/13/21 08:34 Pulse 77 10/13/21 08:34 Resp 18 10/13/21 08:34 BP 115/79 10/13/21 08:34 Pulse Ox 96 10/13/21 08:34 Intake & Output 10/12/21 10/13/21 10/13/21 18:59 06:59 18:59 Intake Total 960 360 880 Output Total 2050 1750 950 Balance -1090 -1390 -70 Intake: Oral 960 360 880 Output: Urine 0 1750 950 Other: Voiding Method Toilet Toilet Urinal Urinal # Voids 1 # Bowel Movements 1 1 ABP, PAP, CO, CI - Last Documented Arterial Blood Pressure 104/51 Pulmonary Artery Pressure 23/11 Cardiac Output 7.4 Cardiac Index 3.1 - Labs CBC & Chem 7: 10/13/21 06:00 10/13/21 06:10 Labs: Abnormal Lab Results - Last 24 Hours (Table) 10/12/21 10/12/21 10/12/21 Range/Units 12:14 16:49 20:02 RBC (4.30-5.90) m/uL Hgb (13.0-17.5) gm/dL Hct (39.0-53.0) % RDW (11.5-15.5) % Sodium (137-145) mmol/L Chloride (98-107) mmol/L Carbon Dioxide (22-30) mmol/L BUN (9-20) mg/dL Creatinine (0.66-1.25) mg/dL Glucose (74-99) mg/dL POC Glucose (mg/dL) 101 H 112 H 177 H (75-99) mg/dL 10/13/21 10/13/21 10/13/21 Range/Units 03:18 06:00 06:10 RBC 2.47 L (4.30-5.90) m/uL Hgb 7.4 L (13.0-17.5) gm/dL Hct 23.8 L (39.0-53.0) % RDW 16.5 H (11.5-15.5) % Sodium 134 L (137-145) mmol/L Chloride 108 H (98-107) mmol/L Carbon Dioxide 20 L (22-30) mmol/L BUN 53 H (9-20) mg/dL Creatinine 1.92 H (0.66-1.25) mg/dL Glucose 169 H (74-99) mg/dL POC Glucose (mg/dL) 134 H (75-99) mg/dL 10/13/21 Range/Units 06:46 RBC (4.30-5.90) m/uL Hgb (13.0-17.5) gm/dL Hct (39.0-53.0) % RDW (11.5-15.5) % Sodium (137-145) mmol/L Chloride (98-107) mmol/L Carbon Dioxide (22-30) mmol/L BUN (9-20) mg/dL Creatinine (0.66-1.25) mg/dL Glucose (74-99) mg/dL POC Glucose (mg/dL) 150 H (75-99) mg/dL Assessment and Plan Plan: Assessment: 1. Acute kidney injury secondary to ATN secondary to hemodynamic instability and post CABG. Renal function improving. Creatinine 1.92 today. 2. Chronic kidney disease stage IIIB with baseline creatinine near 1.5 secondary to nephrosclerosis. 3. Hyperkalemia secondary to acute kidney injury and metabolic acidosis. Improved. 4. Anemia of chronic kidney disease. Iron deficiency noted. s/p IV iron. On Aranesp. 5. Status post CABG on 08/16/2022. 6. Metabolic acidosis secondary to chronic kidney disease. 7. A. fib maintained on amiodarone drip. 8. Lower extremity edema. Plan: Lasix 20 mg IV today. Add oral sodium bicarbonate. Avoid nephrotoxins. Continue to monitor renal function and urine output.
[2021-10-13 12:15] LABS: Glucose,Whole Blood 118 mg/dL (75-99)
[2021-10-13] MEDS: SODIUM BICARBONATE TAB 650 MG TAB PO SCH ×2 (12:20→21:29)
--- NOTE | 2021-10-13 12:20 | P.PN ---
Subjective Progress Note Date: 10/13/21 Principal diagnosis: Triple-vessel diffuse coronary artery disease, unstable angina, preserved left ventricular function. Past medical history significant for coronary artery dise ase with previous myocardial infarction and previous stenting 5, hypertension, hyperlipidemia, bup-beqylxr-krtslarva diabetes, obesity, chronic kidney disease stage III, obstructive sleep apnea currently not using CPAP, anemia, gout, GERD, current light tobacco dependence, family history of premature coronary artery disease with both parents diagnosed before the age of 60, vaccinated and boosted against Covid. POD #6 quadruple coronary artery bypass grafting using the left internal mammary artery to the left anterior descending artery, left radial artery from the aorta to the ramus intermedius artery, reverse saphenous vein graft from the aorta to the second obtuse marginal artery, reverse saphenous vein graft from the aorta to the early arising posterior descending artery, exclusion of the left atrial appendage using a 45 mm AtriClip, sternal plating using the cranium system, graft flow measurements using the Medistim system, endoscopic harvesting of the left radial artery, endoscopic harvesting of the left greater saphenous vein, intraoperative transesophageal echocardiogram and epi-aortic scanning. Postoperative acute blood loss anemia, expected given hemodilution, cardiopulm onary bypass pump, and preoperative anemia. Postoperative paroxysmal atrial fibrillation, a known common occurrence after cardiac surgery. The patient was seen today 10/13/2021 at his bedside on the cardiac stepdown unit. Currently he is sitting up to the bedside chair, is awake, alert and oriented 3 and is in no acute distress. His been up ambulating in the hallway with minimal standby assistance from nursing and therapy staff. Denies any complaints of pain or shortness of breath at this time. Remote telemetry showing atrial fibrillation heart rate in the 90s, was initiated on amiodarone drip per protocol. Oxygen saturations 96% on room air and is achieving 2000 mL on his incentive spirometry. He remains afebrile the last 24 hours. Laboratory results today show a WBC 7.9, hemoglobin 7.4, platelets 227, sodium 134, potassium 4.6, CO2 20, BUN 53, creatinine 1.92 and magnesium 1.9. Discharge planning is in place and has been discussed with the patient. Objective - Vital Signs Vital signs: Vital Signs Temp 98 F 10/13/21 08:34 Pulse 77 10/13/21 08:34 Resp 18 10/13/21 08:34 BP 115/79 10/13/21 08:34 Pulse Ox 96 10/13/21 08:34 Intake & Output 10/12/21 10/13/21 10/13/21 18:59 06:59 18:59 Intake Total 960 360 880 Output Total 2049 1750 950 Balance -1090 -1390 -70 Intake: Oral 960 360 880 Output: Urine 2049 1749 950 Other: Voiding Method Toilet Toilet Urinal Urinal # Voids 1 # Bowel Movements 1 1 ABP, PAP, CO, CI - Last Documented Arterial Blood Pressure 104/51 Pulmonary Artery Pressure 23/11 Cardiac Output 7.4 Cardiac Index 3.1 - Exam CONSTITUTIONAL: Sitting up to the bedside chair on the cardiac stepdown unit, appears comfortable, cooperative, no apparent acute distress. HEENT: Neck is supple, no JVD, no lymphadenopathy. RESPIRATORY: Lungs sounds essentially clear throughout, diminished to his bilateral bases. Respirations are symmetrical and nonlabored. Currently on room air with oxygen saturations 96%. Able to achieve 2000 mL on his incentive spirometry. Strong cough. CARDIOVASCULAR: Regular rhythm and rate. S1 and S2 present, negative for S3, gallop or murmur. Sternum is stable. Palpable peripheral pulses bilaterally, generalized +1 edema. No calf pain or tenderness noted. Heart hugger in place with patient demonstrating appropriate use. Knee-high RHIANNON hose and sequential compression devices in place to his bilateral lower extremities. GASTROINTESTINAL: Abdomen soft, nontender, nondistended. Active bowel sounds present 4 quadrants. Tolerating diet. Passing flatus. No guarding or rigidity. GENITOURINARY: Continues to void. 700 mL urine output in the last 8 hours. INTEGUMENTARY: Skin is warm and dry with no evidence of clubbing or cyanosis. Midline sternal incision clean dry and well approximated, covered with dry intact dressing. Left lower extremity EVH sites well approximated without redness or drainage. Left arm radial artery harvest sites clean, dry and approximated. No drainage or redness is present. NEUROLOGIC: Cranial nerves II through XII intact. No focal deficits. MUSKULOSKELETAL: Able to move all extremities, strength equal bilaterally. PSYCHIATRIC: Alert and oriented to person place and time, flat affect, intact judgment and insight. - Allied health notes Allied health notes reviewed: nursing - Labs CBC & Chem 7: 10/13/21 06:00 10/13/21 06:10 Labs: Abnormal Lab Results - Last 24 Hours (Table) 10/12/21 10/12/21 10/12/21 Range/Units 12:14 16:49 20:02 RBC (4.30-5.90) m/uL Hgb (13.0-17.5) gm/dL Hct (39.0-53.0) % RDW (11.5-15.5) % Sodium (137-145) mmol/L Chloride (98-107) mmol/L Carbon Dioxide (22-30) mmol/L BUN (9-20) mg/dL Creatinine (0.66-1.25) mg/dL Glucose (74-99) mg/dL POC Glucose (mg/dL) 101 H 112 H 177 H (75-99) mg/dL 10/13/21 10/13/21 10/13/21 Range/Units 03:18 06:00 06:10 RBC 2.47 L (4.30-5.90) m/uL Hgb 7.4 L (13.0-17.5) gm/dL Hct 23.8 L (39.0-53.0) % RDW 16.5 H (11.5-15.5) % Sodium 134 L (137-145) mmol/L Chloride 108 H (98-107) mmol/L Carbon Dioxide 20 L (22-30) mmol/L BUN 53 H (9-20) mg/dL Creatinine 1.92 H (0.66-1.25) mg/dL Glucose 169 H (74-99) mg/dL POC Glucose (mg/dL) 134 H (75-99) mg/dL 10/13/21 Range/Units 06:46 RBC (4.30-5.90) m/uL Hgb (13.0-17.5) gm/dL Hct (39.0-53.0) % RDW (11.5-15.5) % Sodium (137-145) mmol/L Chloride (98-107) mmol/L Carbon Dioxide (22-30) mmol/L BUN (9-20) mg/dL Creatinine (0.66-1.25) mg/dL Glucose (74-99) mg/dL POC Glucose (mg/dL) 150 H (75-99) mg/dL - Imaging and Cardiology Chest x-ray: report reviewed, image reviewed Assessment and Plan Assessment: 1. Triple-vessel diffuse coronary artery disease with previous myocardial infarction and previous stenting 5, most recently 2008, status post four-vessel CABG 2. Preserved left ventricular function, EF 55-60% 3. Hypertension 4. Hyperlipidemia, treated, cholesterol 138, LDL 59.2, triglycerides 260 5. Ten-tngckbq-vvrjchhiq diabetes, hemoglobin A1c 6.3% 6. Morbid obesity 7. Chronic kidney disease stage III 8. Obstructive sleep apnea currently not using CPAP 9. History of anemia 10. Gout 11. GERD 12. Current light tobacco dependence, mild COPD with FEV1 62% of predicted 13. Family history of premature coronary artery disease with both parents diagnosed before the age of 60 14. Vaccinated and boosted against Covid 15. Postoperative acute blood loss anemia, expected 16. Postoperative atrial fibrillation, unknown, recurrent after cardiac surgery Plan: 1. Continue aspirin, statin, Plavix, and beta brandy. Will increase metoprolol tartrate as tolerated. 2. Continue amlodipine 5 mg by mouth daily for radial artery spasm prophylaxis. 3. Wean O2 as tolerated. Encourage incentive spirometry use 10 times every hour while awake. Bronchodilators, BiPAP per pulmonology 4. Increase activity, ambulate as tolerated. PT/OT/cardiac rehab following. 5. Will monitor daily labs and chest x-rays. Electrolyte replacement per protocol. Avoid nephrotoxins, decision regarding lasix, IV iron per nephrology. 6. GI/DVT prophylaxis. 7. Insulin management per primary care service. 8. Pain control with current medication regimen. Avoid Toradol secondary to kidney disease. 9. Discharge planning is in place, anticipate discharge to inpatient rehab or subacute rehab within the next 48 hours. 10. Strict accurate intake and output. 11. Importance of risk modification including smoking cessation discussed with the patient. 12. Amiodarone drip initiated per protocol for atrial fibrillation prophylaxis. 13. Lasix 20 mg IV 1 per nephrology recommendations. 14. Discontinue Midodrine. 15. Discharge planning is in place, anticipate discharge home with home health care in the next 24-48 hours. 16. More recommendations to follow based on patient's clinical course. Time with Patient: Greater than 30
--- NOTE | 2021-10-13 14:27 | P.PN ---
Subjective HISTORY OF PRESENTING ILLNESS Patient is a pleasant 51-year-old male with history of coronary artery disease with prior myocardial infarction and stenting most recently in 2008, hypertension, hyperlipidemia, diabetes mellitus, COPD, obstructive sleep apnea, anemia, tobacco abuse who has been having intermittent chest pain and therefore underwent stress testing which was abnormal. He was transferred from [facility] and had heart catheterization which showed multivessel disease and therefore CABG workup was recommended. Echo performed revealed EF 55-60%. On 10/07/2021 patient underwent four-vessel CABG Patient seen and examined at bedside, no acute distress. Patient went into atrial fibrillation this morning. It was started on IV amiodarone drip with 150mg amiodarone bolus. He continues to be in atrial fibrillation with contro lled rates. Vitals are stable. Denies any shortness of breath or chest pain. Labs reviewed, sodium 134, potassium 4.6, BUN 53, sCR 1.92, WBC 7.9, hemoglobin 7.4, platelets 227 He's currently maintained on amiodarone at 1ml/hr, aspirin 325 mg daily, atorvastatin 80 mg nightly. Plavix 75 mg daily. amlodipine 5 mg daily, metoprolol tartrate 100 mg twice a day, PHYSICAL EXAMINATION Vital signs reviewed. CONSTITUTIONAL: No apparent distress. HEENT: Neck Supple. No JVD. CHEST EXAMINATION: Lungs are clear to auscultation. HEART EXAMINATION: Irregular rate and rhythm. S1, S2 heard. No murmurs, gallops or rub. ABDOMEN: Soft, nontender. Positive bowel sounds. EXTREMITIES: no lower extremity edema and no calf tenderness. NEUROLOGIC EXAMINATION: Patient is awake, alert and oriented x3. ASSESSMENT Multivessel CAD Status post four-vessel CABG Coronary artery disease with previous myocardial infarction and previous stenting 5, most recently in 2008 Chest pain concerning for unstable angina Hypertension Hyperlipidemia Diabetes mellitus type 2 Tobacco abuse COPD Chronic kidney disease Paroxysmal atrial fibrillation PLAN Continue aspirin, statin, Plavix, beta brandy Increase activity as tolerated. Encourage use of incentive spirometer Postoperative management per CT surgery. We will continue to follow. Further recommendations based on clinical course Objective - Vital Signs Vital signs: Vital Signs Temp 98.1 F 10/13/21 12:00 Pulse 77 10/13/21 12:00 Resp 18 10/13/21 12:00 BP 130/89 10/13/21 12:00 Pulse Ox 94 L 10/13/21 12:00 Intake & Output 10/12/21 10/13/21 10/13/21 18:59 06:59 18:59 Intake Total 960 360 880 Output Total 2049 1749 950 Balance -1090 -1390 -70 Intake: Oral 960 360 880 Output: Urine 2049 1749 950 Other: Voiding Method Toilet Toilet Urinal Urinal # Voids 1 # Bowel Movements 1 1 ABP, PAP, CO, CI - Last Documented Arterial Blood Pressure 104/51 Pulmonary Artery Pressure 23/11 Cardiac Output 7.4 Cardiac Index 3.1 - Labs CBC & Chem 7: 10/13/21 06:00 10/13/21 06:10 Labs: Abnormal Lab Results - Last 24 Hours (Table) 10/12/21 10/12/21 10/13/21 Range/Units 16:49 20:02 03:18 RBC (4.30-5.90) m/uL Hgb (13.0-17.5) gm/dL Hct (39.0-53.0) % RDW (11.5-15.5) % Sodium (137-145) mmol/L Chloride (98-107) mmol/L Carbon Dioxide (22-30) mmol/L BUN (9-20) mg/dL Creatinine (0.66-1.25) mg/dL Glucose (74-99) mg/dL POC Glucose (mg/dL) 112 H 177 H 134 H (75-99) mg/dL 10/13/21 10/13/21 10/13/21 Range/Units 06:00 06:10 06:46 RBC 2.47 L (4.30-5.90) m/uL Hgb 7.4 L (13.0-17.5) gm/dL Hct 23.8 L (39.0-53.0) % RDW 16.5 H (11.5-15.5) % Sodium 134 L (137-145) mmol/L Chloride 108 H (98-107) mmol/L Carbon Dioxide 20 L (22-30) mmol/L BUN 53 H (9-20) mg/dL Creatinine 1.92 H (0.66-1.25) mg/dL Glucose 169 H (74-99) mg/dL POC Glucose (mg/dL) 150 H (75-99) mg/dL 10/13/21 Range/Units 12:13 RBC (4.30-5.90) m/uL Hgb (13.0-17.5) gm/dL Hct (39.0-53.0) % RDW (11.5-15.5) % Sodium (137-145) mmol/L Chloride (98-107) mmol/L Carbon Dioxide (22-30) mmol/L BUN (9-20) mg/dL Creatinine (0.66-1.25) mg/dL Glucose (74-99) mg/dL POC Glucose (mg/dL) 118 H (75-99) mg/dL
--- NOTE | 2021-10-13 14:54 | P.PN ---
Progress Note - Text Progress Note Date: 10/13/21 Presenting complaint: Chest pain History of presenting complaint: This is a 51-year-old patient was chronic stable medical conditions include diabetes mellitus type 2, hypertension, CK D stage III, GERD, gout with known coronary artery disease and prior 5 stents. Patient had been present for 15 years really has not prolonged cold. He was being followed at the senior care physician. Patient presented to [facility] with chest hour left- sided precordial pain. Admitted with unstable angina. Put on IV heparin. Troponins were negative. Patient was transferred to [facility] in [place] for further intervention. Patient had a nuclear stress test that showed reversibility. Patient yesterday underwent cardiac catheterization was found to have triple-vessel disease. Cardiothoracic surgery's been consulted. Currently no chest pain. 2-D echo showed EF of 55-60% October 05: Sitting up in bed. No chest pain. Oral intake good. Consult nephrology. October 06: Comfortable. No chest pain no shortness of breath. Being scheduled for coronary bypass tomorrow. GPS Tether has been taken of a by the police deputy. PAMELA inhibitor held by nephrology. October 07: ICU. Ventilator 50/10. Quadruple coronary bypass. 2 mediastinal one chest tube. Drips include cleviprex, propofol, insulin, nitroglycerin. Sedated. Sinus rhythm. October 08: ICU: Patient been extubated. Sitting up in a chair. Chest tubes in place. On a clear liquid diet. Some shortness of breath. Sinus rhythm. Sinus rhythm. Martin catheter. Awake. Tired. Received IV amiodarone.. 6 L nasal cannula October 09: ICU. Feeling better. Tolerated liquid diet today. 4 L nasal cannula. Chest use a bit removed. Martin cath has been removed. Did walk about 100 feet. Patient is off the insulin drip. Will be moved off the ICU. Breathing better. October 10: Moved out of the ICU. Some shortness of breath. Eating fair. Did walk a bit. Up in chair. 4 L nasal cannula. October 11: Feeling tired today. Shortness of breath. Did eat some. Up in a chair. Has not slept well. 95% on room air October 12: Breathing better. Oral intake good. Walking the hallway. Sleeping better. Patient also has received IV Ferrlecit. Arelis 17: Breathing stable. Oral intake good. Patient went into atrial fibrillation this morning. Started IV amiodarone drip. With a bolus of 150 mg. Heart rate is better controlled. Review of systems: Was done for constitutional, cardiovascular, GI, pulmonary. relevant finding as above Active Medications Acetaminophen (Acetaminophen Tab 325 Mg Tab) 650 mg PO Q4HR PRN PRN Reason: Fever and/ or Pain Last Admin: 10/11/21 09:46 Dose: 650 mg Documented by: Albuterol/Ipratropium (Ipratropium-Albuterol 3 Ml Neb) 3 ml INHALATION RT-Q2H PRN PRN Reason: Shortness Of Breath Or Wheezing Albuterol/Ipratropium (Ipratropium-Albuterol 3 Ml Neb) 3 ml INHALATION RT-QID [facility] Last Admin: 10/13/21 12:18 Dose: Not Given Documented by: Amlodipine Besylate (Amlodipine 5 Mg Tab) 5 mg PO DAILY [facility] Last Admin: 10/13/21 08:36 Dose: 5 mg Documented by: Ascorbic Acid (Ascorbic Acid 500 Mg Tab) 500 mg PO BID-W/MEALS [facility] Last Admin: 10/13/21 07:01 Dose: 500 mg Documented by: Aspirin (Aspirin 325 Mg Tab) 325 mg PO DAILY [facility] Last Admin: 10/13/21 08:36 Dose: 325 mg Documented by: Atorvastatin Calcium (Atorvastatin 80 Mg Tab) 80 mg PO HS [facility] Last Admin: 10/12/21 20:55 Dose: 80 mg Documented by: Benzocaine/Menthol (Benzocaine/Menthol Lozeng 1 Each Lozenge) 1 each MUCOUS MEM Q2H PRN PRN Reason: Sore Throat Bisacodyl (Bisacodyl 10 Mg Supp) 10 mg RECTAL DAILY PRN PRN Reason: Constipation Clopidogrel Bisulfate (Clopidogrel 75 Mg Tab) 75 mg PO DAILY [facility] Last Admin: 10/13/21 08:36 Dose: 75 mg Documented by: Darbepoetin Heladio (Darbepoetin Heladio 60 Mcg/0.3 Ml Syringe) 60 mcg SQ Q7D [facility] Last Admin: 10/12/21 15:32 Dose: 60 mcg Documented by: Ferrous Sulfate (Ferrous Sulfate 325 Mg Tab) 325 mg PO BID-W/MEALS [facility] Last Admin: 10/13/21 07:01 Dose: 325 mg Documented by: Glipizide (Glipizide 5 Mg Tab) 5 mg PO AC-BRKFST [facility] Last Admin: 10/13/21 07:01 Dose: 5 mg Documented by: Heparin Sodium (Porcine) (Heparin Sodium,Porcine/Pf 5,000 Unit/0.5 Ml Syringe) 5,000 unit SQ Q8HR [facility] Last Admin: 10/13/21 08:36 Dose: 5,000 unit Documented by: Amiodarone HCl 150 mg/ (Dextrose/Water) 103 mls @ 618 mls/hr IV .Q10M PRN; Protocol PRN Reason: A.FIB/FLUTTER Last Admin: 10/13/21 10:46 Dose: 618 mls/hr Documented by: Amiodarone HCl 360 mg/ (Dextrose/Water) 207.2 mls @ 34.533 mls/hr IV .Q6H PRN; Protocol PRN Reason: A.FIB/FLUTTER Last Admin: 10/13/21 08:36 Dose: 1 mg/min, 34.533 mls/hr Documented by: Amiodarone HCl 450 mg/ (Dextrose/Water) 250 mls @ 16.667 mls/hr IV .Q15H PRN; Protocol PRN Reason: A.FIB/FLUTTER Insulin Aspart (Insulin Aspart (Novolog) 100 Unit/Ml Vial) 0 unit SQ [id number] SC H; Protocol Last Admin: 10/13/21 12:20 Dose: Not Given Documented by: Insulin Detemir (Insulin Detemir (Levemir) 100 Unit/Ml Syr) 20 unit SQ DAILY@0700 [facility] Last Admin: 10/13/21 07:00 Dose: 20 unit Documented by: Magnesium Hydroxide (Magnesium Hydroxide 2,400 Mg/10 Ml Cup) 2,400 mg PO BID PRN PRN Reason: Constipation Last Admin: 10/10/21 07:49 Dose: 2,400 mg Documented by: Metoclopramide HCl (Metoclopramide 5 Mg/Ml 2 Ml Vial) 10 mg IVP Q4H PRN PRN Reason: Nausea And Vomiting Last Admin: 10/10/21 07:49 Dose: 10 mg Documented by: Metoprolol Tartrate (Metoprolol Tartrate 50 Mg Tab) 100 mg PO BID [facility] Last Admin: 10/13/21 05:14 Dose: 100 mg Documented by: Miscellaneous Information (Potassium Replacement Protocol 1 Each [facility]) 1 each MISCELLANE DAILY PRN; Protocol PRN Reason: Per Protocol Miscellaneous Information (Magnesium Replacement Protocol 1 Each [facility]) 1 each MISCELLANE DAILY PRN; Protocol PRN Reason: Per Protocol Miscellaneous Information (Phosphorus Replacement Protoco 1 Each [facility]) 1 each MISCELLANE DAILY PRN; Protocol PRN Reason: Per Protocol Ondansetron HCl (Ondansetron 4 Mg/2 Ml Vial) 4 mg IVP Q6HR PRN PRN Reason: Nausea And Vomiting Last Admin: 10/08/21 06:36 Dose: 4 mg Documented by: Pantoprazole Sodium (Pantoprazole 40 Mg Tablet) 40 mg PO -BRKFST [facility] Last Admin: 10/13/21 07:01 Dose: 40 mg Documented by: Senna/Docusate Sodium (Sennosides-Docusate Sodium 1 Each Tab) 2 each PO [facility] Last Admin: 10/12/21 20:55 Dose: 2 each Documented by: Sertraline HCl (Sertraline 50 Mg Tab) 50 mg PO DAILY [facility] Last Admin: 10/13/21 08:36 Dose: 50 mg Documented by: Sodium Bicarbonate (Sodium Bicarbonate Tab 650 Mg Tab) 650 mg PO BID [facility] Last Admin: 10/13/21 12:20 Dose: 650 mg Documented by: Sodium Chloride (Sodium Chloride 0.9% Flush 10 Ml Syringe) 10 ml IV BID [facility] Last Admin: 10/13/21 08:47 Dose: 10 ml Documented by: Zolpidem Tartrate (Zolpidem 5 Mg Tab) 5 mg PO [facility] Last Admin: 10/12/21 20:55 Dose: 5 mg Documented by: Past medical history to include: Diabetes mellitus type 2, CAD with 5 stents, hypertension, CK D stage III, GERD, gout, obstructive sleep apnea, bipolar Social history: Patient average 3-4 packs a day for close to 40 years. Now a few cigarettes a day. Currently living at half a house. Was in the senior care doctor recently for last 15 years. Family history: Mesothelioma, heart disease Physical examination: VITAL SIGNS: 98.1, 77, 18, 1:30/89, 94% room air GENERAL: , Up in a chair, comfortable EYES: Pupils equal. Conjunctiva normal. HEENT: External appearance of nose and ears normal, oral cavity normal NECK: JVD unable to assess; masses not palpable. HEART: Heart sounds irregular; no edema. LUNGS: Respiratory rate normal; decreased breath sounds. ABDOMEN: Soft, nontender, liver spleen not palpable, no masses palpable. PSYCH: AO 3, mood and affect tired Dermatology: Inspection skin grossly intact. No obvious abnormality on palpation: Musculoskeletal: Inspection no clubbing cyanosis. Palpation: No obvious bony abnormality INVESTIGATIONS, reviewed in the clinical context: October 13: White count 7.9 hemoglobin 7.4 platelets 227 potassium 4.6 BUN 53 creatinine 1.9 to October 07: White count 5 hemoglobin 7.3 platelets 85 potassium 4.7 BUN 24 creatinine 1.34 Renal ultrasound: Difficult exam due to patient body habitus. October 05: Hemoglobin 11.5 creatinine 1.67 White count is 6.3 hemoglobin 11.9 platelets 189 sodium 139 potassium 4.6 BUN 28 creatinine 1.55 Accu-Cheks noted HbA1c 6.3 TSH 1.6 Acute hepatitis panel for A, B, and C: Not reactive Coronavirus [PCR]: Not detected 2-D echocardiogram: Moderate concentric LVH. EF 55-60% Chest x-ray film personally reviewed by me-cardiomegaly. Telemetry tracings personally reviewed by me: Sinus rhythm, T-wave changes Assessment and plan: -Quadruple coronary bypass. 4 triple-vessel CAD On October [address] Renee -Acute hypoxic respiratory failure: Improved Ventilator support: Extubated. Now off oxygen -New onset atrial fibrillation rapid ventricular rate.: New diagnosis Received IV amiodarone bolus 150. On a drip. -Coronary artery disease with prior 5 stents Aspirin , Lopressor 100 mg twice a day. Amlodipine 5 mg a day -COPD in a previous smoker DuoNeb 3 times a day -Hyperlipidemia Lipitor 80 mg daily at bedtime -Chronic kidney disease stage III likely from diabetic nephropathy and nephrosclerosis Follow renal function closely. nephrology consult -Normocytic anemia of chronic disease from CK D -Acute postprocedure blood loss anemia, expected from surgery Follow H&H. IV Ferrlecit 125 mg . By mouth iron -Acute dilutional thrombocytopenia: Improved -Diabetes mellitus type 2 on oral hypoglycemic Insulin drip-discontinued. Follow Accu-Cheks with sliding scale. Glucotrol -Essential hypertension Amlodipine, Lopressor -Acute insomnia from multiple medical problems Ambien 5 mg daily at bedtime -Chronic gout Allopurinol 100 mg a day -Morbid obesity BMI 40.2 New-onset atrial fibrillation. Amiodarone drip. With bolus. Other medications to continue. Discussed with patient. Lopressor increased to 100 mg twice a day.
[2021-10-13] MEDS: AMIODARONE 450 MG in DEXTROSE 5% IN WATER 250 ML IV PRN ×2 (14:56)
[2021-10-13 16:33] LABS: Glucose,Whole Blood 145 mg/dL (75-99)
--- NOTE | 2021-10-13 18:56 | P.PN ---
Subjective Progress Note Date: 10/13/21 Principal diagnosis: Status post CABG, triple-vessel coronary artery disease. Postoperative day #6. POD #6 quadruple coronary artery bypass grafting using the left internal mammary artery to the left anterior descending artery, left radial artery from the aorta to the ramus intermedius artery, reverse saphenous vein graft from the aorta to the second obtuse marginal artery, reverse saphenous vein graft from the aorta to the early arising posterior descending artery, exclusion of the left atrial appendage using a 45 mm AtriClip, sternal plating using the cranium system, gr aft flow measurements using the Medistim system, endoscopic harvesting of the left radial artery, endoscopic harvesting of the left greater saphenous vein, intraoperative transesophageal echocardiogram and epi-aortic scanning. Patient was reevaluated today on 10/13/2021, he is presently on amiodarone drip, he is on selective, he is on room air, does not seem to be in any distress. Patient is actually on the amiodarone protocol, and discharge planning is in place, most likely the patient could be discharged home tomorrow. Pulmonary-beltran the patient is asymptomatic, chest x-ray today is reassuring. CBC showed a hemoglobin of 7.4. Electrolytes are normal renal profile is abnormal with a BUN of 53 creatinine 1.9 to Objective - Vital Signs Vital signs: Vital Signs Temp 97.9 F 10/13/21 15:06 Pulse 62 10/13/21 15:06 Resp 18 10/13/21 15:06 BP 131/82 10/13/21 15:06 Pulse Ox 98 10/13/21 15:06 Intake & Output 10/12/21 10/13/21 10/13/21 18:59 06:59 18:59 Intake Total 923 473 7363 Output Total 2049 175 2650 Balance -1090 -1390 -1530 Intake: Oral 053 695 7000 Output: Urine 2049 1749 2650 Other: Voiding Method Toilet Toilet Urinal Urinal # Voids 1 # Bowel Movements 1 1 ABP, PAP, CO, CI - Last Documented Arterial Blood Pressure 104/51 Pulmonary Artery Pressure 23/11 Cardiac Output 7.4 Cardiac Index 3.1 - Exam GENERAL: , Revealed a 51-year-old white male obese, not in distress, on room air. EYES: Unremarkable. No icterus. HEENT: Cherie, EOMI, nonicteric, no neck masses, NECK: No neck masses no JVD no stridor no lymphadenopathy.. HEART: Irregular irregular rhythm, no S3 gallop. LUNGS: Respiratory rate normal; decreased breath sounds. ABDOMEN: Obese soft nontender no megaly no rebound no guarding. PSYCH: Normal mood affect and normal mental status examination. Neurologic: Alert and oriented 3 mg focal deficits. Dermatology: No rashes. Musculoskeletal: No deformities noted limitation range of motion - Labs CBC & Chem 7: 10/13/21 06:00 10/13/21 06:10 Labs: Abnormal Lab Results - Last 24 Hours (Table) 10/12/21 10/13/21 10/13/21 Range/Units 20:02 03:18 06:00 RBC 2.47 L (4.30-5.90) m/uL Hgb 7.4 L (13.0-17.5) gm/dL Hct 23.8 L (39.0-53.0) % RDW 16.5 H (11.5-15.5) % Sodium (137-145) mmol/L Chloride (98-107) mmol/L Carbon Dioxide (22-30) mmol/L BUN (9-20) mg/dL Creatinine (0.66-1.25) mg/dL Glucose (74-99) mg/dL POC Glucose (mg/dL) 177 H 134 H (75-99) mg/dL 10/13/21 10/13/21 10/13/21 Range/Units 06:10 06:46 12:13 RBC (4.30-5.90) m/uL Hgb (13.0-17.5) gm/dL Hct (39.0-53.0) % RDW (11.5-15.5) % Sodium 134 L (137-145) mmol/L Chloride 108 H (98-107) mmol/L Carbon Dioxide 20 L (22-30) mmol/L BUN 53 H (9-20) mg/dL Creatinine 1.92 H (0.66-1.25) mg/dL Glucose 169 H (74-99) mg/dL POC Glucose (mg/dL) 150 H 118 H (75-99) mg/dL 10/13/21 Range/Units 16:31 RBC (4.30-5.90) m/uL Hgb (13.0-17.5) gm/dL Hct (39.0-53.0) % RDW (11.5-15.5) % Sodium (137-145) mmol/L Chloride (98-107) mmol/L Carbon Dioxide (22-30) mmol/L BUN (9-20) mg/dL Creatinine (0.66-1.25) mg/dL Glucose (74-99) mg/dL POC Glucose (mg/dL) 145 H (75-99) mg/dL Assessment and Plan Assessment: Impression: Status post CABG postoperative day #6 Postoperative atrial fibrillation with RVR requiring amiodarone as per protocol. Postoperative atelectasis, chest x-ray today is reassuring. This is expected. Benign essential hypertension. Type 2 diabetes. History of underlying COPD FEV1 of 62%, presently inactive History of obstructive sleep apnea on CPAP at home. Acute on chronic kidney disease secondary to ATN, being followed by 2. Patient is fully vaccinated for COVID-19 infection. Recommendation: Continue incentive spirometry, Continue deep coughing and deep breathing Continue diuretics as per nephrology. Discharge planning is in progress. We will continue to follow. Time with Patient: Less than 30
[2021-10-13 20:22] LABS: Glucose,Whole Blood 177 mg/dL (75-99)
[2021-10-13] MEDS: ZOLPIDEM 5 MG TAB PO SCH (21:29)
[2021-10-13] MEDS: ATORVASTATIN 80 MG TAB PO SCH (21:30)
[2021-10-13] MEDS: SENNOSIDES-DOCUSATE SODIUM 1 EACH TAB PO SCH (21:31)
[2021-10-14] MEDS: HEPARIN SODIUM,PORCINE/PF 5,000 UNIT/0.5 ML SYRINGE SQ SCH ×2 (00:38→09:27)
[2021-10-14 02:06] LABS: Glucose,Whole Blood 168 mg/dL (75-99)
[2021-10-14 02:42] LABS: Calcium 8.2 mg/dL (8.4-10.2); Magnesium 2.1 mg/dL (1.6-2.3); Potassium 4.4 mmol/L (3.5-5.1)
[2021-10-14] MEDS: INSULIN ASPART (NovoLOG) 100 UNIT/ML VIAL SQ SCH ×3 (02:45→12:01)
[2021-10-14] MEDS: AMIODARONE 450 MG in DEXTROSE 5% IN WATER 250 ML IV PRN ×2 (03:00)
[2021-10-14 06:06] LABS: Glucose,Whole Blood 130 mg/dL (75-99)
[2021-10-14] MEDS: AMIODARONE 200 MG TAB PO SCH ×2 (06:51→09:27)
[2021-10-14] MEDS: INSULIN DETEMIR (LEVEMIR) 100 UNIT/ML SYR SQ SCH (06:54)
[2021-10-14] MEDS: PANTOPRAZOLE 40 MG TABLET PO SCH (06:55)
[2021-10-14] MEDS: FERROUS SULFATE 325 MG TAB PO SCH (06:55)
[2021-10-14] MEDS: ASCORBIC ACID 500 MG TAB PO SCH (06:55)
[2021-10-14] MEDS: glipiZIDE 5 MG TAB PO SCH (06:55)
[2021-10-14 08:51] LABS: Anisocytosis Slight; HCT 25.6 % (39.0-53.0); HGB 7.8 gm/dL (13.0-17.5); Hypochromasia Marked; MCH 29.6 pg (25.0-35.0); MCHC 30.4 g/dL (31.0-37.0); MCV 97.3 fL (80.0-100.0); Macrocytosis Slight; Mean Platelet Volume 7.7; Platelet Count 224 k/uL (150-450); RBC 2.63 m/uL (4.30-5.90); RDW 17.1 % (11.5-15.5); WBC 7.4 k/uL (3.8-10.6)
[2021-10-14] MEDS: IPRATROPIUM-ALBUTEROL 3 ML NEB INHALATION SCH ×2 (09:10→11:46)
[2021-10-14 09:26] VITALS: BP 133/78; PULSE 70; RESP 20; TEMP 98
[2021-10-14] MEDS: amLODIPine 5 MG TAB PO SCH (09:26)
[2021-10-14] MEDS: ASPIRIN 325 MG TAB PO SCH (09:26)
[2021-10-14] MEDS: SODIUM BICARBONATE TAB 650 MG TAB PO SCH (09:26)
[2021-10-14] MEDS: SERTRALINE 50 MG TAB PO SCH (09:26)
[2021-10-14] MEDS: METOPROLOL TARTRATE 50 MG TAB PO SCH (09:27)
[2021-10-14] MEDS: CLOPIDOGREL 75 MG TAB PO SCH (09:27)
[2021-10-14 11:37] LABS: Glucose,Whole Blood 92 mg/dL (75-99)
--- NOTE | 2021-10-14 12:02 | P.PN ---
Subjective Patient is seen in follow-up for acute kidney injury on chronic kidney disease. Renal function improving. Maintain on amiodarone drip. Good urine output. Denies chest pain or shortness of breath. Oral intake good. Hemodynamically stable. No changes overnight. Vital signs are stable. General: The patient appeared well nourished and normally developed. HEENT: Head exam is unremarkable. LUNGS: Breath sounds decreased. HEART: Rate and Rhythm are regular. ABDOMEN: Soft, no distention. EXTREMITITES: 1+ edema. Objective - Vital Signs Vital signs: Vital Signs Temp 98 F 10/14/21 08:50 Pulse 70 10/14/21 08:50 Resp 20 10/14/21 08:50 BP 133/78 10/14/21 08:50 Pulse Ox 96 10/14/21 08:50 Intake & Output 10/13/21 10/14/21 10/14/21 18:59 06:59 18:59 Intake Total 1120 321.115 118 Output Total 2650 400 600 Balance -1530 -78.885 -482 Weight 126.6 kg Intake: Intake, IV Titration 201.115 Amount Amiodarone 450 mg In 201.115 Dextrose 5% in Water 250 ml @ 0.5 MG/MIN 16.667 mls/hr IV .Q15H PRN Rx#: [id number] Oral 1120 120 118 Output: Urine 2650 400 600 Other: Voiding Method Toilet Urinal # Voids 1 # Bowel Movements 1 ABP, PAP, CO, CI - Last Documented Arterial Blood Pressure 104/51 Pulmonary Artery Pressure 23/11 Cardiac Output 7.4 Cardiac Index 3.1 - Labs CBC & Chem 7: 10/14/21 08:27 10/14/21 02:00 Labs: Abnormal Lab Results - Last 24 Hours (Table) 10/13/21 10/13/21 10/13/21 Range/Units 12:13 16:31 20:21 RBC (4.30-5.90) m/uL Hgb (13.0-17.5) gm/dL Hct (39.0-53.0) % MCHC (31.0-37.0) g/dL RDW (11.5-15.5) % Sodium (137-145) mmol/L BUN (9-20) mg/dL Creatinine (0.66-1.25) mg/dL Glucose (74-99) mg/dL POC Glucose (mg/dL) 118 H 145 H 177 H (75-99) mg/dL Calcium (8.4-10.2) mg/dL 10/14/21 10/14/21 10/14/21 Range/Units 02:00 02:04 06:05 RBC (4.30-5.90) m/uL Hgb (13.0-17.5) gm/dL Hct (39.0-53.0) % MCHC (31.0-37.0) g/dL RDW (11.5-15.5) % Sodium 135 L (137-145) mmol/L BUN 52 H (9-20) mg/dL Creatinine 2.05 H (0.66-1.25) mg/dL Glucose 150 H (74-99) mg/dL POC Glucose (mg/dL) 168 H 130 H (75-99) mg/dL Calcium 8.2 L (8.4-10.2) mg/dL 10/14/21 Range/Units 08:27 RBC 2.63 L (4.30-5.90) m/uL Hgb 7.8 L (13.0-17.5) gm/dL Hct 25.6 L (39.0-53.0) % MCHC 30.4 L (31.0-37.0) g/dL RDW 17.1 H (11.5-15.5) % Sodium (137-145) mmol/L BUN (9-20) mg/dL Creatinine (0.66-1.25) mg/dL Glucose (74-99) mg/dL POC Glucose (mg/dL) (75-99) mg/dL Calcium (8.4-10.2) mg/dL Assessment and Plan Plan: Assessment: 1. Acute kidney injury secondary to ATN secondary to hemodynamic instability and post CABG. Renal function fairly stable. Creatinine 2.05 today. 2. Chronic kidney disease stage IIIB with baseline creatinine near 1.5 secondary to nephrosclerosis. 3. Hyperkalemia secondary to acute kidney injury and metabolic acidosis. Improved. 4. Anemia of chronic kidney disease. Iron deficiency noted. s/p IV iron. On Aranesp. 5. Status post CABG on 08/16/2022. 6. Metabolic acidosis secondary to chronic kidney disease. On oral bicarbonate. 7. A. fib maintained on amiodarone drip. 8. Lower extremity edema. Plan: Change Lasix to 40 mg orally once daily. Avoid nephrotoxins. Continue to monitor renal function and urine output. Repeat BMP and magnesium level 2-3 days post discharge. Follow up outpatient in 1 week.
--- NOTE | 2021-10-14 12:31 | P.DS ---
Providers Date of admission: 10/03/21 15:37 Expected date of discharge: 10/14/21 Attending physician: Saulo Renee Consults: 10/03/21 18:37 Consult Physician Routine Consulting Provider: Saulo Renee Consult Reason/Comments: CABG Do you want consulting provider notified?: Yes, Notify in am 10/04/21 08:07 Consult Physician Routine Consulting Provider: Travis Aguilera Consult Reason/Comments: pulm clearence for cabg Do you want consulting provider notified?: Already Contacted 10/04/21 08:21 Consult Physician Routine Consulting Provider: Benja Bello Consult Reason/Comments: CAD Do you want consulting provider notified?: Already Contacted 10/05/21 16:06 Consult Physician Routine Consulting Provider: Juice Martines Consult Reason/Comments: CK D Do you want consulting provider notified?: Yes 10/06/21 14:32 Consult to Anesthesia Routine Consulting Provider: Anesthesia,Services Consult Reason/Comments: Cardiac Surgery Pre-Op 10/07/21 16:05 Consult Physician Routine Consulting Provider: Reggie Bravo Consult Reason/Comments: med mgmt Do you want consulting provider notified?: Already Contacted 10/10/21 08:49 Consult Physician Routine Consulting Provider: Andres Cardoso Consult Reason/Comments: IPR at discharge Do you want consulting provider notified?: Yes Primary care physician: [facility] Course: FINAL DIAGNOSIS: 1. Triple vessel diffuse coronary artery disease with previous myocardial infarction and previous stenting 5, most recently in 2008, status post 4 vessel coronary artery bypass grafting surgery 2. Preserved left ventricular function, ejection fraction 55-60% 3. Hypertension 4. Hyperlipidemia, treated, cholesterol 138, LDL 59.2, triglycerides 260 5. [id number] diabetes mellitus, preoperative hemoglobin A1c 6.3% 6. Morbid obesity 7. Chronic kidney disease stage III 8. Obstructive sleep apnea currently not using CPAP 9. History of anemia 10. History of gout 11. GERD 12. Current light tobacco dependence, mild COPD with an FEV1 62% of predicted value 13. Family history of premature coronary artery disease with both parents diagnosed before the age of 60 14. Vaccinated and boosted against Covid-19 15. Postoperative acute blood loss anemia, expected 16. Postoperative atrial fibrillation, a known common occurrence after cardiac surgery PRINCIPAL PROCEDURE: 1. Quadruple coronary artery bypass grafting using the left internal mammary artery to left anterior descending coronary artery, left radial artery from the aorta to the ramus intermedius coronary artery, a reverse greater saphenous vein graft from the aorta to the second obtuse marginal coronary artery, and a reverse greater saphenous vein graft from the aorta to the early rising posterior descending coronary artery. 2. Exclusion of the left atrial appendage using a 45 mm Atriclip. 3. Sternal plating using the cranium system. 4. Graft flow measurement using the Medistim System. 5. Endoscopic harvesting of the left radial artery. 6. Intraoperative transesophageal echocardiogram. 7. Intraoperative epi-aortic scanning. HISTORY OF PRESENT ILLNESS: This is a 51-year-old gentleman who was recently released from 15 years of incarceration approximately 3 months ago and who follows on an outpatient basis with Dr. Cummings in for his primary care service. He experienced an episode of chest pain associated with shortness of breath and lightheadedness which woke him while sleeping. The patient does have a history of similar episodes in the past when he had his heart attack. Subsequently due to his symptoms he presented to [facility] for further evaluation and treatment recommendations. Laboratory results at that time showed serial negative troponins. A stress test was completed which demonstrated lateral ischemia and subsequently due to his presenting symptoms, history of coronary artery disease and findings on his stress test he was transferred to [facility] for further evaluation. A cardiac catheterization was completed which demonstrated a chronic total occlusion of the right coronary artery with collateral circulation from the left system, a 70% stenosis to his mid left anterior descending coronary artery, a 70-80% stenosis to his distal left anterior descending coronary artery, a 90-95% stenosis to his ostial ramus coronary artery and an 80% stenosis to his obtuse marginal coronary artery. A transthoracic 2-D echocardiogram was also completed which showed his overall left ventricular systolic function to be normal with an ejection fraction between 55 and 60%, mild mitral valve regurgitation and trace tricuspid valve regurgitation. Due to the findings on the cardiac catheterization a consult was placed to cardiac surgery for further evaluation and treatment recommendations including myocardial revascularization surgery. HOSPITAL COURSE: The patient was admitted to the hospital, Dr. Renee met with the patient, discussed findings on his cardiac catheterization films, discussed treatment options including myocardial revascularization surgery. Risks and benefits including the STS risk score of surgery were discussed with the patient and knowing and understanding these risks the patient wished to proceed with the surgical option. On 10/07/2021, after obtaining consent, the patient was brought to the preoperative area, prepared in the usual fashion and subsequently taken the operating room where Dr. Saulo Renee performed a quadruple coronary artery bypass grafting. Upon completion of the surgery the patient was transferred to the cardiovascular intensive care unit where he was recovered, and monitored hemodynamically. He was extubated, all lines, tubes and supportive drips were discontinued when appropriate and he was transferred to the third floor cardiac stepdown unit for further monitoring and rehabilitation. His oxygen was titrated down, he continued to work with physical and occupational therapy, he was tolerating an oral diet, his pain was well- controlled and he was ready to be discharged home with [facility] care on postoperative day #5. He has received written and verbal instructions regarding his medications, activity restrictions, signs and symptoms requiring physician on occasion and his follow-up appointments. Plan - Discharge Summary Discharge Rx Participant: No New Discharge Prescriptions: New Potassium Chloride ER [K-Dur 10] 10 meq PO DAILY #30 tab Atorvastatin [Lipitor] 80 mg PO HS #30 tab Metoprolol Tartrate [Lopressor] 100 mg PO BID #120 tab amLODIPine [Norvasc] 5 mg PO DAILY #30 tab Clopidogrel [Plavix] 75 mg PO DAILY #30 tab Acetaminophen Tab [Tylenol] 650 mg PO Q4HR PRN tab PRN Reason: Fever And/ Or Pain Amiodarone [Cordarone] 400 mg PO BID #47 tab Ferrous Sulfate [Iron (65 MG Elemental)] 325 mg PO BID-W/MEALS #60 tab Furosemide [Lasix] 40 mg PO DAILY #30 tablet Ascorbic Acid [Vitamin C] 500 mg PO BID-W/MEALS #60 tab Sertraline [Zoloft] 50 mg PO DAILY #30 tab Sodium Bicarbonate Tab 650 mg PO DAILY #30 tab Continue Omeprazole 20 mg PO AC-BRKFST Allopurinol [Zyloprim] 100 mg PO DAILY Aspirin 325 mg PO DAILY Changed glipiZIDE [Glucotrol] 10 mg PO DAILY #0 Discontinued Isosorbide Mononitrate ER [Imdur] 60 mg PO DAILY Atorvastatin [Lipitor] 20 mg PO HS amLODIPine [Norvasc] 5 mg PO DAILY Spironolactone 25 mg PO DAILY Metoprolol Tartrate [Lopressor] 100 mg PO BID lisinopriL 40 mg PO DAILY Discharge Medication List Allopurinol [Zyloprim] 100 mg PO DAILY 10/03/21 [History] Aspirin 325 mg PO DAILY 10/03/21 [History] Omeprazole 20 mg PO AC-BRKFST 10/03/21 [History] Acetaminophen Tab [Tylenol] 650 mg PO Q4HR PRN tab 10/14/21 [Rx] Amiodarone [Cordarone] 400 mg PO BID #47 tab 10/14/21 [Rx] Ascorbic Acid [Vitamin C] 500 mg PO BID-W/MEALS #60 tab 10/14/21 [Rx] Atorvastatin [Lipitor] 80 mg PO HS #30 tab 10/14/21 [Rx] Clopidogrel [Plavix] 75 mg PO DAILY #30 tab 10/14/21 [Rx] Ferrous Sulfate [Iron (65 MG Elemental)] 325 mg PO BID-W/MEALS #60 tab 10/14/21 [Rx] Furosemide [Lasix] 40 mg PO DAILY #30 tablet 10/14/21 [Rx] Metoprolol Tartrate [Lopressor] 100 mg PO BID #120 tab 10/14/21 [Rx] Potassium Chloride ER [K-Dur 10] 10 meq PO DAILY #30 tab 10/14/21 [Rx] Sertraline [Zoloft] 50 mg PO DAILY #30 tab 10/14/21 [Rx] Sodium Bicarbonate Tab 650 mg PO DAILY #30 tab 10/14/21 [Rx] amLODIPine [Norvasc] 5 mg PO DAILY #30 tab 10/14/21 [Rx] glipiZIDE [Glucotrol] 10 mg PO DAILY #0 10/14/21 [Rx] Follow up Appointment(s)/Referral(s): Edwin Hansen MD [STAFF PHYSICIAN] - 1 Week [facility] ,Cardiac [NON-STAFF] - 4 Weeks (You will be called in approximately 4-6 weeks for evaluation for cardiac rehab) Benja Bello MD [STAFF PHYSICIAN] - 10/21/21 3:45 pm Saulo Renee MD [STAFF PHYSICIAN] - 11/07/21 10:00 am Madison Tolentino NPC [Nurse Practitioner] - 11/04/21 3:15 pm Kendall Robert NPC [Nurse Practitioner] - 10/23/21 11:00 am [facility], [NON-STAFF] - 1-2 Days Juice Martines DO [STAFF PHYSICIAN] - 10/24/21 1:40 pm Ambulatory/Diagnostic Orders: Complete Blood Count w/diff [LAB.AMB] Time Frame: 10/17/21, Facility: [facility], Location: Laboratory [facility] Comprehensive Metabolic Panel [LAB.AMB] Time Frame: 10/17/21, Facility: [facility], Location: Laboratory [facility] Activity/Diet/Wound Care/Special Instructions: DISCHARGE INSTRUCTIONS: 1. No driving for 4 weeks, or until physician gives their ok. 2. The patient should sleep in their own bed, no medical bed needed. 3. Stairs are not an issue. If the bedroom is upstairs, it is advised that the patient go up at night and down in the morning for the first week. Go slowly, using handrail and take 1 step at a time. 4. RHIANNON hose are to be worn for 30 days or until physician discontinues. 5. Heart hugger is to be worn 100% of the time until physician discontinues.(except when showering) 6. No lifting, pushing, or pulling more than 10 pounds for 12 weeks. The physician will advise of any restriction changes. 7. The patient is expected to continue the prescribed walking program. 8. Continue pain control per as needed orders. 9. Continue with incentive spirometry and splinting/heart hugger until otherwise directed by the physician. 10. Must shower daily using liquid antibacterial soap and a separate white washcloth for each individual incision. 11. Routine sternal incision care. No powders, lotions, ointments on incisions. No dressings are necessary on incisions unless they are draining. Dermabond tape is to remain on sternal incision until surgeon follow-up. 12. Please call surgeon/BUSINESS AGENT for temp greater than 101 F or purulent drainage from incisions. 13. Narcotic medications were discussed with the patient, including the potential for misuse, addiction, and abuse. Opiod Start Talking form was reviewed with the patient. 14. All prescriptions given by surgeon for 30 days. Refills need to be filled through erp consultant/primary care physician. 15. A Red armband has been placed on the patient. It should be worn for 30 days post surgery and will be removed by the cardiac surgeons. If an ER visit is necessary, please make sure the number on the Red armband is called. 16. You have been referred to and are expected to begin Cardiac Rehab in approximately 4-6 weeks. HOME HEALTH SERVICES TO PROVIDE: RN SKILLED HOME CARE SERVICES FOR POST-OP SURGICAL PATIENTS WITH THE FOLLOWING: Coronary Artery Bypass Surgery (CABG), Mitral Valve Replacem ent/Repair ( MVR), Aortic Valve Replacement/Repair (AVR) RN TO CONTINUE EDUCATION FROM ``ROAD TO A HEALTH HEART PATIENT EDUCATION MANUAL (GIVEN TO PATIENT IN THE HOSPITAL) MEDICATION RECONCILIATION WITH EDUCATION NEEDED ON FIRST HOME VISIT EMPHASIZE IMPORTANCE OF WEARING BREAST SUPPORT/HEART HUGGER ENCOURAGE USE OF INCENTIVE SPIROMETER 10 X EVERY HOUR WHILE AWAKE ENCOURAGE UTILIZATION OF LOWER EXTREMITY COMPRESSION STOCKINGS/RHIANNON HOSE and ELEVATE LEGS ABOVE LEVEL OF HEART WHILE AT REST. ENCOURAGE AMBULATION 3-5x/day INCREASING TOLERATES, WHILE AVOIDING EXTREMES IN TEMPERATURE FREQUENCY: RN TO OPEN THE PATIENT WITHIN 24 HOURS OF DISCHARGE FROM THE HOSPITAL WITH TELEHEALTH INSTALLED AT [facility], RN TO VISIT 2-3 X A WEEK FOR 4 WEEKS ESTABLISHED BY PATIENT NEEDS. LABORATORY: CBC, CMP TO BE DRAWN ON THE THIRD DAY HOME, (RAN STAT) FAX RESULTS TO [phone]. TELEHEALTH PARAMETERS: WEIGHT: NOTIFY MD OF WEIGHT GAIN OF 2 LBS IN 24 HOURS OR 5 LBS IN ONE WEEK HR: NOTIFY MD OF HR <55 BPM OR HR>100 BPM BP: NOTIFY MD IF BP <90/55 OR BP>140/100 O2 SAT: NOTIFY MD IF PO2<93% ON ROOM AIR SEND TELEHEALTH REPORT TO MOTION DESIGNER AND CARDIOVASCULAR SURGEON THE FIRST WEEK OF CARE AND THEN BI-WEEKLY. PLEASE ADDITIONALLY COMMUNICATE ANY ABNORMALS AND NEW FINDINGS TO THE SURGEONS OFFICE. Discharge Disposition: HOME WITH HOME HEALTH SERVICES
--- NOTE | 2021-10-14 13:29 | P.PN ---
Subjective HISTORY OF PRESENTING ILLNESS Patient is a pleasant 51-year-old male with history of coronary artery disease with prior myocardial infarction and stenting most recently in 2008, hypertension, hyperlipidemia, diabetes mellitus, COPD, obstructive sleep apnea, anemia, tobacco abuse who has been having intermittent chest pain and therefore underwent stress testing which was abnormal. He was transferred from [facility] and had heart catheterization which showed multivessel disease and therefore CABG workup was recommended. Echo performed revealed EF 55-60%. On 10/07/2021 patient underwent four-vessel CABG Patient seen and examined at bedside, no acute distress.Patient back in sinus mechanism this morning. Vitals are stable. Denies any shortness of breath or chest pain. Labs reviewed, WBC 7.4, hemoglobin 7.8, platelets 224, sodium 135, potassium 4.4, BUN 52, serum, and 2.0, magnesium 2.1 He's currently maintained on amiodarone 400 mg twice a day, aspirin 325 mg daily, atorvastatin 80 mg nightly. Plavix 75 mg daily. amlodipine 5 mg daily, metoprolol tartrate 100 mg twice a day, PHYSICAL EXAMINATION Vital signs reviewed. CONSTITUTIONAL: No apparent distress. HEENT: Neck Supple. No JVD. CHEST EXAMINATION: Lungs are clear to auscultation. HEART EXAMINATION: Regular rate and rhythm. S1, S2 heard. No murmurs, gallops or rub. ABDOMEN: Soft, nontender. Positive bowel sounds. EXTREMITIES: no lower extremity edema and no calf tenderness. NEUROLOGIC EXAMINATION: Patient is awake, alert and oriented x3. ASSESSMENT Multivessel CAD Status post four-vessel CABG Coronary artery disease with previous myocardial infarction and previous stenting 5, most recently in 2008 Chest pain concerning for unstable angina Hypertension Hyperlipidemia Diabetes mellitus type 2 Tobacco abuse COPD Chronic kidney disease Paroxysmal atrial fibrillation post operatively PLAN PO Amiodarone started today Continue aspirin, statin, Plavix, beta brandy Increase activity as tolerated. Encourage use of incentive spirometer Postoperative management per CT surgery. We will continue to follow. Plan for discharge today patient to follow up with Dr. Bello outpatient Further recommendations based on clinical course Objective - Vital Signs Vital signs: Vital Signs Temp 98 F 10/14/21 08:50 Pulse 70 10/14/21 08:50 Resp 20 10/14/21 08:50 BP 133/78 10/14/21 08:50 Pulse Ox 96 10/14/21 08:50 Intake & Output 10/13/21 10/14/21 10/14/21 18:59 06:59 18:59 Intake Total 1120 321.115 118 Output Total 2650 400 600 Balance -1530 -78.885 -482 Weight 126.6 kg Intake: Intake, IV Titration 201.115 Amount Amiodarone 450 mg In 201.115 Dextrose 5% in Water 250 ml @ 0.5 MG/MIN 16.667 mls/hr IV .Q15H PRN Rx#: [id number] Oral 1120 120 118 Output: Urine 2650 400 600 Other: Voiding Method Toilet Urinal # Voids 1 # Bowel Movements 1 ABP, PAP, CO, CI - Last Documented Arterial Blood Pressure 104/51 Pulmonary Artery Pressure 23/11 Cardiac Output 7.4 Cardiac Index 3.1 - Labs CBC & Chem 7: 10/14/21 08:27 10/14/21 02:00 Labs: Abnormal Lab Results - Last 24 Hours (Table) 10/13/21 10/13/21 10/14/21 Range/Units 16:31 20:21 02:00 RBC (4.30-5.90) m/uL Hgb (13.0-17.5) gm/dL Hct (39.0-53.0) % MCHC (31.0-37.0) g/dL RDW (11.5-15.5) % Sodium 135 L (137-145) mmol/L BUN 52 H (9-20) mg/dL Creatinine 2.05 H (0.66-1.25) mg/dL Glucose 150 H (74-99) mg/dL POC Glucose (mg/dL) 145 H 177 H (75-99) mg/dL Calcium 8.2 L (8.4-10.2) mg/dL 10/14/21 10/14/21 10/14/21 Range/Units 02:04 06:05 08:27 RBC 2.63 L (4.30-5.90) m/uL Hgb 7.8 L (13.0-17.5) gm/dL Hct 25.6 L (39.0-53.0) % MCHC 30.4 L (31.0-37.0) g/dL RDW 17.1 H (11.5-15.5) % Sodium (137-145) mmol/L BUN (9-20) mg/dL Creatinine (0.66-1.25) mg/dL Glucose (74-99) mg/dL POC Glucose (mg/dL) 168 H 130 H (75-99) mg/dL Calcium (8.4-10.2) mg/dL
--- NOTE | 2021-10-14 19:07 | P.PN ---
Progress Note - Text Progress Note Date: 10/14/21 Presenting complaint: Chest pain History of presenting complaint: This is a 51-year-old patient was chronic stable medical conditions include diabetes mellitus type 2, hypertension, CK D stage III, GERD, gout with known coronary artery disease and prior 5 stents. Patient had been present for 15 years really has not prolonged cold. He was being followed at the [facility] physician. Patient [facility] to [facility] with chest hour left- sided precordial pain. Admitted with unstable angina. Put on IV heparin. Troponins were negative. Patient was transferred to [facility] in [place] for further intervention. Patient had a nuclear stress test that showed reversibility. Patient yesterday underwent cardiac catheterization was found to have triple-vessel disease. Cardiothoracic surgery's been consulted. Currently no chest pain. 2-D echo showed EF of 55-60% October 05: Sitting up in bed. No chest pain. Oral intake good. Consult nephrology. October 06: Comfortable. No chest pain no shortness of breath. Being scheduled for coronary bypass tomorrow. GPS Tether has been taken of a by the police deputy. PAMELA inhibitor held by nephrology. October 07: ICU. Ventilator 50/10. Quadruple coronary bypass. 2 mediastinal one chest tube. Drips include cleviprex, propofol, insulin, nitroglycerin. Sedated. Sinus rhythm. October 08: ICU: Patient been extubated. Sitting up in a chair. Chest tubes in place. On a clear liquid diet. Some shortness of breath. Sinus rhythm. Sinus rhythm. Martin catheter. Awake. Tired. Received IV amiodarone.. 6 L nasal cannula October 09: ICU. Feeling better. Tolerated liquid diet today. 4 L nasal cannula. Chest use a bit removed. Martin cath has been removed. Did walk about 100 feet. Patient is off the insulin drip. Will be moved off the ICU. Breathing better. October 10: Moved out of the ICU. Some shortness of breath. Eating fair. Did walk a bit. Up in chair. 4 L nasal cannula. October 11: Feeling tired today. Shortness of breath. Did eat some. Up in a chair. Has not slept well. 95% on room air October 12: Breathing better. Oral intake good. Walking the hallway. Sleeping better. Patient also has received IV Ferrlecit. October 13: Breathing stable. Oral intake good. Patient went into atrial fibrillation this morning. Started IV amiodarone drip. With a bolus of 150 mg. Heart rate is better controlled. October 14: Stable. Oral intake good. Has remained in sinus rhythm. On by mouth amiodarone. Discussed with Kendall Robert from surgery. Glucotrol increased to 10 mg a day. Sodium bicarbonate prescription also done. Discussed with the patient. He remembered his family doctor to be Dr. Hansen. We'll have the patient follow-up at the same. Patient did call. international first officer for his GPS tether-they will come out tomorrow to put it on. Review of systems: Was done for constitutional, cardiovascular, GI, pulmonary. relevant finding as above Current medications reviewed Past medical history to include: Diabetes mellitus type 2, CAD with 5 stents, hypertension, CK D stage III, GERD, gout, obstructive sleep apnea, bipolar Social history: Patient average 3-4 packs a day for close to 40 years. Now a few cigarettes a day. Currently living at half a house. Was in the [facility] doctor recently for last 15 years. Family history: Mesothelioma, heart disease Physical examination: VITAL SIGNS: 98, 70, 20, 133/78, 96% room air GENERAL: , Up in bed, comfortable EYES: Pupils equal. Conjunctiva normal. HEENT: External appearance of nose and ears normal, oral cavity normal NECK: JVD unable to assess; masses not palpable. HEART: Heart sounds irregular; no edema. LUNGS: Respiratory rate normal; decreased breath sounds. ABDOMEN: Soft, nontender, liver spleen not palpable, no masses palpable. PSYCH: AO 3, mood and affect tired INVESTIGATIONS, reviewed in the clinical context: October 14: White count 7.4 hemoglobin 7.8 platelets 224 October 13: White count 7.9 hemoglobin 7.4 platelets 227 potassium 4.6 BUN 53 creatinine 1.9 to October 07: White count 5 hemoglobin 7.3 platelets 85 potassium 4.7 BUN 24 creatinine 1.34 Renal ultrasound: Difficult exam due to patient body habitus. October 05: Hemoglobin 11.5 creatinine 1.67 White count is 6.3 hemoglobin 11.9 platelets 189 sodium 139 potassium 4.6 BUN 28 creatinine 1.55 Accu-Cheks noted HbA1c 6.3 TSH 1.6 Acute hepatitis panel for A, B, and C: Not reactive Coronavirus [PCR]: Not detected 2-D echocardiogram: Moderate concentric LVH. EF 55-60% Chest x-ray film personally reviewed by me-cardiomegaly. Telemetry tracings personally reviewed by me: Sinus rhythm, T-wave changes Assessment and plan: -Quadruple coronary bypass. 4 triple-vessel CAD On October [address] Renee -Acute hypoxic respiratory failure: Improved Ventilator support: Extubated. Now off oxygen -New onset atrial fibrillation rapid ventricular rate.: New diagnosis: Converted to sinus rhythm Received IV amiodarone bolus 150. On by mouth amiodarone. -Coronary artery disease with prior 5 stents Aspirin , Lopressor 100 mg twice a day. Amlodipine 5 mg a day -COPD in a previous smoker DuoNeb 3 times a day -Hyperlipidemia Lipitor 80 mg daily at bedtime -Chronic kidney disease stage III likely from diabetic nephropathy and nephrosclerosis Follow renal function closely. nephrology consult -Normocytic anemia of chronic disease from CK D -Acute postprocedure blood loss anemia, expected from surgery Follow H&H. IV Ferrlecit 125 mg . By mouth iron -Acute dilutional thrombocytopenia: Improved -Diabetes mellitus type 2 on oral hypoglycemic Insulin drip-discontinued. Follow Accu-Cheks with sliding scale. Glucotrol increased to 10 mg a day -Essential hypertension Amlodipine, Lopressor -Acute insomnia from multiple medical problems Ambien 5 mg daily at bedtime -Chronic gout Allopurinol 100 mg a day -Morbid obesity BMI 40.2 Glucotrol increased to 10 mg a day. Sodium bicarbonate. Patient to follow-up with Dr. Hansen. commissioned defence force officer contacted by patient to get the GPS tether on. Discussed with Kendall Bolanos from surgery. Discussed with patient. Questions answered. Total time spent today about 40 minutes with over 25 minutes of discussion.
== END 2021-10-14 15:59 | disposition home or self-care (01) | DRG 233 ==
LOC: 3SCARD 15:37 → 2SICU 10-07 09:41 → 3SCARD 10-09 16:42
PROVIDERS: ADMIT Surgery; ATTEND Surgery
PROC: B2111ZZ Fluoroscopy of Multiple Coronary Arteries using Low Osmolar Contrast (ICD-10-PCS; 2021-10-03)
PROC: B2151ZZ Fluoroscopy of Left Heart using Low Osmolar Contrast (ICD-10-PCS; 2021-10-03)
PROC: 4A023N7 Measurement of Cardiac Sampling and Pressure, Left Heart, Percutaneous Approach (ICD-10-PCS; 2021-10-03 12:25)
PROC: 0212093 Bypass Coronary Artery, Three Arteries from Coronary Artery with Autologous Venous Tissue, Open Approach (ICD-10-PCS; 2021-10-07)
PROC: 02L70CK Occlusion of Left Atrial Appendage with Extraluminal Device, Open Approach (ICD-10-PCS; 2021-10-07)
PROC: 5A1221Z Performance of Cardiac Output, Continuous (ICD-10-PCS; 2021-10-07)
PROC: B24BZZ4 Ultrasonography of Heart with Aorta, Transesophageal (ICD-10-PCS; 2021-10-07)
PROC: 02100Z9 Bypass Coronary Artery, One Artery from Left Internal Mammary, Open Approach (ICD-10-PCS; principal; 2021-10-07 08:00)
PROC: 03BC4ZZ Excision of Left Radial Artery, Percutaneous Endoscopic Approach (ICD-10-PCS; 2021-10-07 08:00)
PROC: 06BQ4ZZ Excision of Left Saphenous Vein, Percutaneous Endoscopic Approach (ICD-10-PCS; 2021-10-07 08:00)
DX: I25.110 Atherosclerotic heart disease of native coronary artery with unstable angina pectoris (principal); J96.01 Acute respiratory failure with hypoxia; N17.0 Acute kidney failure with tubular necrosis; D62 Acute posthemorrhagic anemia; E87.1 Hypo-osmolality and hyponatremia; E87.2 Acidosis; I13.0 Hypertensive heart and chronic kidney disease with heart failure and stage 1 through stage 4 chronic kidney disease, or unspecified chronic kidney disease; I48.92 Unspecified atrial flutter; J98.11 Atelectasis; Z68.41 Body mass index [BMI] 40.0-44.9, adult; I25.2 Old myocardial infarction; Z95.5 Presence of coronary angioplasty implant and graft; E66.01 Morbid (severe) obesity due to excess calories; D63.1 Anemia in chronic kidney disease; D69.59 Other secondary thrombocytopenia; E11.22 Type 2 diabetes mellitus with diabetic chronic kidney disease; E78.5 Hyperlipidemia, unspecified; E87.5 Hyperkalemia; F17.210 Nicotine dependence, cigarettes, uncomplicated; F31.9 Bipolar disorder, unspecified; F43.10 Post-traumatic stress disorder, unspecified; F90.9 Attention-deficit hyperactivity disorder, unspecified type; G47.00 Insomnia, unspecified; G47.33 Obstructive sleep apnea (adult) (pediatric); I25.82 Chronic total occlusion of coronary artery; I48.0 Paroxysmal atrial fibrillation; I50.9 Heart failure, unspecified; J44.9 Chronic obstructive pulmonary disease, unspecified; K21.9 Gastro-esophageal reflux disease without esophagitis; K59.00 Constipation, unspecified; M1A.9XX0 Chronic gout, unspecified, without tophus (tophi); N14.1 Nephropathy induced by other drugs, medicaments and biological substances; N18.32 Chronic kidney disease, stage 3b; T50.8X5A Adverse effect of diagnostic agents, initial encounter; Z79.02 Long term (current) use of antithrombotics/antiplatelets; Z79.4 Long term (current) use of insulin; Z79.82 Long term (current) use of aspirin; Z79.84 Long term (current) use of oral hypoglycemic drugs; Z79.899 Other long term (current) drug therapy; Z80.0 Family history of malignant neoplasm of digestive organs; Z82.49 Family history of ischemic heart disease and other diseases of the circulatory system; Z83.3 Family history of diabetes mellitus
CPT/HCPCS: 71045; 71046; 76770; 76937; 80048; 80053; 80061; 80074; 81003; 82330; 82728; 82805; 83036; 83540; 83550; 83735; 84132; 84443; 85025; 85027; 85520; 85610; 85730; 86850; 86891; 86900; 86901; 86920; 87070; 87635; 93306; 93458; 93880; 93923; 93930; 93970; 94150; 94640; 94660

== ENCOUNTER 2021-10-16 07:58 | Emergency (ER) | payer OTHER ==
[2021-10-16 08:06] VITALS: RESP 18; TEMP 98.5
[2021-10-16] MEDS ORDERED: MORPHINE SULFATE 4 MG/ML SYRINGE IV STA (08:12)
--- NOTE | 2021-10-16 08:14 | ED ---
Chest Pain HPI - General Chief Complaint: Chest Pain Stated Complaint: Chest pain Time Seen by Provider: 10/16/21 08:00 Source: patient, EMS, RN notes reviewed, old records reviewed Mode of arrival: EMS Limitations: no limitations - History of Present Illness Initial Comments: 51-year-old male history of hypertension and hyperlipidemia CAD status post q uadruple bypass on 10/07/2021. Patient presents with left upper chest pain which began this morning. He was transported by paramedics. There is no associated vomiting or diaphoresis. He states he's had some minimal abdominal discomfort. He has had pain over his sternum but has been taking Tylenol at home. Patient denies radiating symptoms. The pain is worse with deep inspiration. - Related Data Home Medications Medication Instructions Recorded Confirmed Amiodarone [Cordarone] See Taper PO BID 10/16/21 10/16/21 Previous Rx's Medication Instructions Recorded Acetaminophen Tab [Tylenol] 650 mg PO Q4HR PRN tab 10/14/21 Ascorbic Acid [Vitamin C] 500 mg PO BID-W/MEALS #60 tab 10/14/21 Atorvastatin [Lipitor] 80 mg PO HS #30 tab 10/14/21 Clopidogrel [Plavix] 75 mg PO DAILY #30 tab 10/14/21 Ferrous Sulfate [Iron (65 MG 325 mg PO BID-W/MEALS #60 tab 10/14/21 Elemental)] Furosemide [Lasix] 40 mg PO DAILY #30 tablet 10/14/21 Metoprolol Tartrate [Lopressor] 100 mg PO BID #120 tab 10/14/21 Potassium Chloride ER [K-Dur 10] 10 meq PO DAILY #30 tab 10/14/21 Sertraline [Zoloft] 50 mg PO DAILY #30 tab 10/14/21 Sodium Bicarbonate Tab 650 mg PO DAILY #30 tab 10/14/21 amLODIPine [Norvasc] 5 mg PO DAILY #30 tab 10/14/21 glipiZIDE [Glucotrol] 10 mg PO DAILY #60 tab 10/14/21 Allergies Allergy/AdvReac Type Severity Reaction Status Date / Time Penicillins Allergy Swelling Verified 10/16/21 09:13 Sulfa (Sulfonamide Allergy Swelling Verified 10/16/21 09:13 Antibiotics) Review of Systems ROS Statement: Those systems with pertinent positive or pertinent negative responses have been documented in the HPI. ROS Other: All systems not noted in ROS Statement are negative. EKG Findings - EKG Comments: EKG Findings:: EKG: Normal sinus rhythm, T-wave inversion in the lateral precordial leads and aVL. Similar appearance to prior EKG on October 04. Rate of 70, OH interval 164, QRS duration 98, QTC 498. Past Medical History Past Medical History: Asthma, Coronary Artery Disease (CAD), Chest Pain / Angina, Heart Failure, Diabetes Mellitus, GERD/Reflux, Hyperlipidemia, Hypertension, Myocardial Infarction ([place]), Renal Disease, Sleep Apnea/CPAP/BIPAP Last Myocardial Infarction Date:: 2008 History of Any Multi-Drug Resistant Organisms: None Reported Past Surgical History: Adenoidectomy, Coronary Bypass/CABG, Heart Catheterization With Stent, Tonsillectomy Additional Past Surgical History / Comment(s): cardiac stents x 5 Past Anesthesia/Blood Transfusion Reactions: Postoperative Nausea & Vomiting (PONV) Past Psychological History: ADD/ADHD, Anxiety, Bipolar, Depression, PTSD Smoking Status: Former smoker Past Alcohol Use History: None Reported Past Drug Use History: None Reported - Past Family History Father Family Medical History: Cancer, Coronary Artery Disease (CAD), Myocardial Infarction ([place]) Additional Family Medical History / Comment(s): at age 68 from mesothelioma, diagnosis of heart disease age of 60 Mother Family Medical History: Cancer, Coronary Artery Disease (CAD), Diabetes Mellitus, Liver Disease, Myocardial Infarction ([place]) Additional Family Medical History / Comment(s): from liver cancer, diagnosed with heart disease before the age of 60 General Exam Limitations: no limitations General appearance: alert, in no apparent distress Head exam: Present: atraumatic, normocephalic Eye exam: Present: normal appearance, PERRL ENT exam: Present: normal exam Neck exam: Present: normal inspection. Absent: tenderness, meningismus Respiratory exam: Present: decreased breath sounds. Absent: respiratory distress, chest wall tenderness Cardiovascular Exam: Present: regular rate, normal rhythm GI/Abdominal exam: Present: soft. Absent: distended, tenderness, guarding Extremities exam: Present: normal inspection, normal capillary refill. Absent: pedal edema Neurological exam: Present: alert, oriented X3, CN II-XII intact. Absent: motor sensory deficit Psychiatric exam: Present: normal affect, normal mood Skin exam: Present: warm, dry, intact, pallor Course Vital Signs 0110/16/21 10/16/21 08:00 08:09 10:07 Temperature 98.5 F Pulse Rate 72 69 Pulse Rate [ 72 Sitting Pulse Oximetery] Respiratory 18 18 Rate Blood Pressure 148/84 151/81 O2 Sat by Pulse 97 97 Oximetry - Reevaluation(s) Reevaluation #1: 10/16/21 08:22 Case discussed with Ghassan osborne for cardiothoracic surgery. Aware of patient. Chest Pain MDM - MDM 51-year-old male who is status post quadruple bypass presenting with left-sided chest pain. Pain is atypical for ACS. Seemingly more musculoskeletal in nature. EKG showing chronic changes without acute process, no ST segment elevation. Chest x-ray shows trace left-sided effusion with no acute findings. Patient has stable laboratory testings including stable anemia, stable kidney dysfunction. Initial troponin is 0.4. I have discussed case with Ghassan osborne for cardiothoracic surgery throughout the patient's ER visit. We did repeat a second troponin which is down trending. Patient's pain is more musculoskeletal in nature. He will be discharged home he has good follow-up with cardiothoracic surgery as an outpatient. He is given strict return parameters. Disposition Clinical Impression: Chest pain Disposition: HOME SELF-CARE Condition: Fair Instructions (If sedation given, give patient instructions): Chest Pain (ED) Is patient prescribed a controlled substance at d/c from ED?: No Referrals: Edwin Hansen MD [Primary Care Provider] - 1-2 days Time of Disposition: 12:37
[2021-10-16 08:50] LABS: Anisocytosis Slight; Basophils % (A) 0 %; Eosinophils # (A) 0.2 k/uL (0-0.7); Eosinophils % (A) 3 %; HCT 22.5 % (39.0-53.0); Hypochromasia Moderate; Lymphocytes # (A) 0.8 k/uL (1.0-4.8); Lymphocytes % (A) 11 %; MCH 29.6 pg (25.0-35.0); MCHC 31.2 g/dL (31.0-37.0); MCV 95.1 fL (80.0-100.0); Macrocytosis Slight; Monocytes # (A) 0.3 k/uL (0-1.0); Monocytes % (A) 4 %; Neutrophils # (A) 6.4 k/uL (1.3-7.7); Neutrophils % (A) 80 %; Platelet Count 244 k/uL (150-450); Poikilocytosis Slight; RBC 2.37 m/uL (4.30-5.90); RDW 17.3 % (11.5-15.5)
[2021-10-16 08:59] LABS: Albumin 2.9 g/dL (3.5-5.0); Calcium 8.4 mg/dL (8.4-10.2); Potassium 4.5 mmol/L (3.5-5.1); Total Bilirubin 0.7 mg/dL (0.2-1.3); Total Protein 5.9 g/dL (6.3-8.2)
--- NOTE | 2021-10-16 09:11 | XR ---
EXAMINATION TYPE: XR chest 2V DATE OF EXAM: 10/16/2021 COMPARISON: Chest x-ray 10/13/2021 HISTORY: Chest pain TECHNIQUE: Frontal and lateral views of the chest are obtained. FINDINGS: Patient is post median sternotomy and left atrial appendage clip placement. The heart is e nlarged, mediastinum remains widened. No evident pneumothorax. There are overlying leads. No definite airspace disease, although there is some patchy persistent density at the posterior costophrenic ang le on the left, technique may be somewhat limited by patient body habitus. IMPRESSION: Probable residual left lower lobe atelectasis, difficult to exclude small effusion. Post op change. Cardiomegaly.
[2021-10-16 09:45] LABS: Prothrombin Time 10.5 sec (9.0-12.0)
[2021-10-16 13:56] VITALS: BP 139/79; PULSE 66
== END 2021-10-16 13:55 | disposition home or self-care (01) ==
LOC: EC 07:58
DX: R07.89 Other chest pain (principal); J45.909 Unspecified asthma, uncomplicated; E11.9 Type 2 diabetes mellitus without complications; I11.0 Hypertensive heart disease with heart failure; I50.9 Heart failure, unspecified; I25.2 Old myocardial infarction; I25.10 Atherosclerotic heart disease of native coronary artery without angina pectoris; Z88.0 Allergy status to penicillin; Z87.891 Personal history of nicotine dependence; Z95.1 Presence of aortocoronary bypass graft; Z88.2 Allergy status to sulfonamides; Z79.899 Other long term (current) drug therapy
CPT/HCPCS: 36415; 93005; 83880; 80053; 83735; 84484; 85025; 85610; 85730; 71046; 99285; 96374; J2270

== ENCOUNTER 2021-10-19 21:37 | Emergency (ER) | payer OTHER ==
[2021-10-19 22:04] VITALS: TEMP 98.2
[2021-10-19] MEDS ORDERED: predniSONE 50 MG TAB PO STA (22:33)
[2021-10-19] MEDS ORDERED: FAMOTIDINE 20 MG TAB PO STA (22:33)
[2021-10-19] MEDS ORDERED: diphenhydrAMINE 50 MG CAP PO STA (22:33)
--- NOTE | 2021-10-19 22:34 | ED ---
General Adult HPI - General Chief complaint: Allergic Reaction Stated complaint: Rash, medication reaction Time Seen by Provider: 10/19/21 22:15 Source: patient, RN notes reviewed Mode of arrival: ambulatory Limitations: no limitations - History of Present Illness Initial comments: 51-year-old male presents to the emergency department for evaluation of rash and itching, onset this afternoon. Patient states he was recently discharged from the hospital after open heart surgery. Patient reports upon discharge he was started on several new medications which he has been taking a directed. States he noticed the rash began on his left arm early today which has since spread to his torso and right arm, and has itching on the lower extremities as well. Denies any worsening shortness of breath. No difficulty swallowing or sensation of thickened tongue. Able to swallow without difficulty. Denies fever, chills, abdominal pain, nausea, or vomiting. - Related Data Home Medications Medication Instructions Recorded Confirmed Amiodarone [Cordarone] See Taper PO BID 10/16/21 10/16/21 Previous Rx's Medication Instructions Recorded Acetaminophen Tab [Tylenol] 650 mg PO Q4HR PRN tab 10/14/21 Ascorbic Acid [Vitamin C] 500 mg PO BID-W/MEALS #60 tab 10/14/21 Atorvastatin [Lipitor] 80 mg PO HS #30 tab 10/14/21 Clopidogrel [Plavix] 75 mg PO DAILY #30 tab 10/14/21 Ferrous Sulfate [Iron (65 MG 325 mg PO BID-W/MEALS #60 tab 10/14/21 Elemental)] Furosemide [Lasix] 40 mg PO DAILY #30 tablet 10/14/21 Metoprolol Tartrate [Lopressor] 100 mg PO BID #120 tab 10/14/21 Potassium Chloride ER [K-Dur 10] 10 meq PO DAILY #30 tab 10/14/21 Sertraline [Zoloft] 50 mg PO DAILY #30 tab 10/14/21 Sodium Bicarbonate Tab 650 mg PO DAILY #30 tab 10/14/21 amLODIPine [Norvasc] 5 mg PO DAILY #30 tab 10/14/21 glipiZIDE [Glucotrol] 10 mg PO DAILY #60 tab 10/14/21 diphenhydrAMINE [Benadryl] 25 mg PO QID PRN #20 capsule 10/20/21 predniSONE 50 mg PO DAILY #3 tab 10/20/21 Allergies Allergy/AdvReac Type Severity Reaction Status Date / Time Penicillins Allergy Swelling Verified 10/19/21 22:00 Sulfa (Sulfonamide Allergy Swelling Verified 10/19/21 22:00 Antibiotics) Review of Systems ROS Statement: Those systems with pertinent positive or pertinent negative responses have been documented in the HPI. ROS Other: All systems not noted in ROS Statement are negative. Past Medical History Past Medical History: Asthma, Coronary Artery Disease (CAD), Chest Pain / Angina, Heart Failure, Diabetes Mellitus, GERD/Reflux, Hyperlipidemia, Hypertension, Myocardial Infarction ([place]), Renal Disease, Sleep Apnea/CPAP/BIPAP Last Myocardial Infarction Date:: 2008 History of Any Multi-Drug Resistant Organisms: None Reported Past Surgical History: Adenoidectomy, Coronary Bypass/CABG, Heart Catheterization With Stent, Tonsillectomy Additional Past Surgical History / Comment(s): cardiac stents x 5 Past Anesthesia/Blood Transfusion Reactions: Postoperative Nausea & Vomiting (PONV) Past Psychological History: ADD/ADHD, Anxiety, Bipolar, Depression, PTSD Smoking Status: Former smoker Past Alcohol Use History: None Reported Past Drug Use History: None Reported - Past Family History Father Family Medical History: Cancer, Coronary Artery Disease (CAD), Myocardial Infarction (SC) Additional Family Medical History / Comment(s): at age 68 from mesothelioma, diagnosis of heart disease age of 60 Mother Family Medical History: Cancer, Coronary Artery Disease (CAD), Diabetes Mellitus, Liver Disease, Myocardial Infarction (SC) Additional Family Medical History / Comment(s): from liver cancer, diagnosed with heart disease before the age of 60 General Exam Limitations: no limitations General appearance: alert, in no apparent distress, other (Well-developed, well- nourished male in no acute distress. Patient does appear unkempt. Initial temperature 98.2, pulse 69, respirations 20, blood pressure 119/47, pulse ox 96% on room air.) ENT exam: Present: normal exam, normal oropharynx, mucous membranes moist Respiratory exam: Present: normal lung sounds bilaterally, chest wall tenderness (midline/sternal incision tape remains c/d/i with no evidence of surrounding erythema or drainage), other (patient is short of breath, though states it is no worse than usual; wearing heart hugger). Absent: respiratory distress, wheezes, rales, rhonchi, stridor Cardiovascular Exam: Present: regular rate, normal heart sounds GI/Abdominal exam: Present: soft, normal bowel sounds. Absent: distended, tenderness, guarding, rebound, rigid Left Forearm Wrist exam: Present: swelling (mild left forearm edema; patient endorses some improvement ), ecchymosis (eccymosis resolving on left forearm s/p surgery), other (healing surgical sites appear intact with no surrounding erythema or drainage) Vascular: Present: normal capillary refill, radial pulse, brachial pulse. Absent: vascular compromise, Pallo Right General: Present: other (multiple areas of adhesive residue ) Elbow exam: Present: tenderness (superficial thrombophlebitis at site of previous IV. ). Absent: erythema Vascular: Present: normal capillary refill, radial pulse, brachial pulse, ulnar pulse. Absent: vascular compromise, Pallo Neurological exam: Present: alert, oriented X3 Psychiatric exam: Present: flat affect Skin exam: Present: warm, dry, pallor (patient is known to be anemic) Expanded Type of lesion: Present: rash Distribution of rash: thorax (scattered macular rash on lateral aspects of the torso), chest (coalesing, urticarial rash on the anterior chest wall), RUE, LUE (flesh colored papular rash scattered on bilateral upper extremities. ) Course Vital Signs 10/19/21 10/20/21 22:00 00:28 Temperature 98.2 F Pulse Rate 69 78 Respiratory 20 16 Rate Blood Pressure 119/47 152/74 O2 Sat by Pulse 96 98 Oximetry - Reevaluation(s) Reevaluation #1: 10/19/21 22:54 Phoned as indicated was necessary in patient's discharge summary. Message left on voicemail. 10/19/21 23:34 2nd attempt to reach CTS as directed in discharge paper work. Phoned . No additional message left. Medical Decision Making - Medical Decision Making 51-year-old male with a past medical history of recent 4-vessel CABG presents to the emergency department for evaluation of new onset rash. Upon arrival, patient appears unkempt, but in no acute distress. He has adhesive residue in multiple areas on the right upper extremity and across the anterior torso. He has a small urticarial patch on the left anterior chest wall, macules on bilateral extremities of the torso, and scattered papules on bilateral upper extremities. Patient complains of mild itching from head to toe. Discussed hygiene and personal care though patient states he just does not have the energy. In addition to contact irritants, rash could also be attributed to initiation of new medications, however none of these will be discontinued as there is no concern for angioedema oral airway interference. Patient was given Benadryl, prednisone, and Pepcid. He will be prescribed a very short course of prednisone and given Benadryl for itching. Made aware of the sedative effects of the Benadryl. He is scheduled to see homecare tomorrow and cardiology on Wednesday. Additionally, patient also reports discomfort in the right antecubital also where he is noted to have a localized thrombophlebitis likely secondary to prolonged swelling on an intravenous catheter. Site is tender to touch with localized area of firmness. He is instructed to apply warm compresses. Attempts were made to contact phone number on [employer], message was left with no return phone call. This patient's care was discussed with my attending Dr. Cunningham. Patient will be discharged home with follow-up plan in place. Return parameters were discussed in detail. Patient verbalizes understanding and agrees with this plan. Disposition Clinical Impression: Rash and nonspecific skin eruption Disposition: HOME SELF-CARE Condition: Stable Instructions (If sedation given, give patient instructions): Urticaria (ED), Dermatitis (ED) Additional Instructions: Continue home medications as prescribed. You are being prescribed a short duration of oral steroid as well as Benadryl to treat the rash and itching. Please make sure to keep all scheduled follow up appointments. Return to the emergency department with any worsening shortness of breath, difficulty swallowing, chest pain, or any other concerning symptoms. Prescriptions: diphenhydrAMINE [Benadryl] 25 mg PO QID PRN #20 capsule PRN Reason: Itching predniSONE 50 mg PO DAILY #3 tab Is patient prescribed a controlled substance at d/c from ED?: No Referrals: None,Stated [REFERRING] - 1-2 days Time of Disposition: 00:32
[2021-10-20 00:29] VITALS: BP 152/74; PULSE 78; RESP 16
== END 2021-10-20 00:56 | disposition home or self-care (01) ==
LOC: EC 21:37
DX: R21 Rash and other nonspecific skin eruption (principal); J45.909 Unspecified asthma, uncomplicated; I11.0 Hypertensive heart disease with heart failure; I50.9 Heart failure, unspecified; E11.9 Type 2 diabetes mellitus without complications; I25.2 Old myocardial infarction; Z88.0 Allergy status to penicillin; Z88.2 Allergy status to sulfonamides; Z79.899 Other long term (current) drug therapy
CPT/HCPCS: 99282; J7512

== ENCOUNTER 2021-11-02 16:27 | Observation (INO) | payer OTHER ==
[2021-11-02] MEDS ORDERED: ASPIRIN 81 MG PO STA (16:41)
[2021-11-02] MEDS ORDERED: KETOROLAC 15 MG/ML 1 ML VIAL IVP STA (16:51)
[2021-11-02] MEDS ORDERED: MORPHINE SULFATE 4 MG/ML SYRINGE IVP STA (16:51)
--- NOTE | 2021-11-02 18:05 | ED ---
General Adult HPI - General Chief complaint: Chest Pain Stated complaint: Post-op issues Time Seen by Provider: 11/02/21 16:40 Source: patient, RN notes reviewed, old records reviewed Mode of arrival: ambulatory Limitations: no limitations - History of Present Illness Initial comments: Patient is a 51-year-old male who receives quadruple bypass surgery approximately one month ago presents emergency Department complaining of chest wall pain. Patient states that he was about to slip on ice 2 days ago when he weight his arms in the air. At that time he felt a "popping" sensation in his been having some mild sternal chest pain since. Denies any radiation of the pain. Denies any shortness breath, abdominal pain, nausea, vomiting. Denies any headache, weakness, numbness. His no other acute complaints at this time. Patient states the pain is worse with movement and with stretching his arms. Some the tape also follow today, and there is possible concern for a mild cellulitis versus skin reaction to the tape. He denies any fevers, chills, cough. Denies any other acute complaints at this time. - Related Data Home Medications Medication Instructions Recorded Confirmed Nitroglycerin Sl Tabs [Nitrostat] 0.4 mg SL Q5M PRN 11/02/21 11/02/21 Previous Rx's Medication Instructions Recorded Acetaminophen Tab [Tylenol] 650 mg PO Q4HR PRN tab 10/14/21 Ascorbic Acid [Vitamin C] 500 mg PO BID-W/MEALS #60 tab 10/14/21 Atorvastatin [Lipitor] 80 mg PO HS #30 tab 10/14/21 Clopidogrel [Plavix] 75 mg PO DAILY #30 tab 10/14/21 Ferrous Sulfate [Iron (65 MG 325 mg PO BID-W/MEALS #60 tab 10/14/21 Elemental)] Furosemide [Lasix] 40 mg PO DAILY #30 tablet 10/14/21 Metoprolol Tartrate [Lopressor] 100 mg PO BID #120 tab 10/14/21 Potassium Chloride ER [K-Dur 10] 10 meq PO DAILY #30 tab 10/14/21 Sertraline [Zoloft] 50 mg PO DAILY #30 tab 10/14/21 Sodium Bicarbonate Tab 650 mg PO DAILY #30 tab 10/14/21 amLODIPine [Norvasc] 5 mg PO DAILY #30 tab 10/14/21 glipiZIDE [Glucotrol] 10 mg PO DAILY #60 tab 10/14/21 Allergies Allergy/AdvReac Type Severity Reaction Status Date / Time Penicillins Allergy Swelling Verified 11/02/21 18:55 Sulfa (Sulfonamide Allergy Swelling Verified 11/02/21 18:55 Antibiotics) Review of Systems ROS Statement: Those systems with pertinent positive or pertinent negative responses have been documented in the HPI. Review of Systems: CONST: Denies fever EYES: Denies blurry vision ENT: Denies nasal congestion C/V: Endorses 2 days of chest wall pain. RESP: Denies shortness of breath GI: Denies abdominal pain : Denies dysuria SKIN: Denies rash. MSK: Denies joint pain. NEURO: Denies headache ROS Other: All systems not noted in ROS Statement are negative. Past Medical History Past Medical History: Asthma, Coronary Artery Disease (CAD), Chest Pain / Ang davin, Heart Failure, Diabetes Mellitus, GERD/Reflux, Hyperlipidemia, Hypertension, Myocardial Infarction ([place]), Renal Disease, Sleep Apnea/CPAP/BIPAP Last Myocardial Infarction Date:: 2008 History of Any Multi-Drug Resistant Organisms: None Reported Past Surgical History: Adenoidectomy, Coronary Bypass/CABG, Heart Catheteriza tion With Stent, Tonsillectomy Additional Past Surgical History / Comment(s): cardiac stents x 5, quad bipass open heart 10/07/2021 Past Anesthesia/Blood Transfusion Reactions: Postoperative Nausea & Vomiting (PONV) Past Psychological History: ADD/ADHD, Anxiety, Bipolar, Depression, PTSD Smoking Status: Former smoker Past Alcohol Use History: None Reported Past Drug Use History: None Reported - Past Family History Father Family Medical History: Cancer, Coronary Artery Disease (CAD), Myocardial Infarction ([place]) Additional Family Medical History / Comment(s): at age 68 from mesothelioma, diagnosis of heart disease age of 60 Mother Family Medical History: Cancer, Coronary Artery Disease (CAD), Diabetes Mellitus, Liver Disease, Myocardial Infarction (DC) Additional Family Medical History / Comment(s): from liver cancer, diagnosed with heart disease before the age of 60 General Exam - General Exam Comments Initial Comments: General: Appears in no acute distress. HEAD: Normal with no signs of head trauma. EYES: PERRLA, EOMI, conjunctiva normal, no discharge. ENT: Hearing grossly intact, normal oropharynx. RESPIRATORY: Clear breath sounds bilaterally. No wheezes, rales, or rhonchi. C/V: Regular rate and rhythm. S1 and S2 auscultated, no edema, peripheral pulses 2+ and intact throughout ABD: Abd is soft, nontender, nondistended EXT: Normal range of motion, no obvious deformity SKIN: Dry and has a healing sternal chest incision with mild erythema over the left side. Appears to be more of a skin irritation and cellulitis. No crepitus, induration, purulence is noted. There is no discharge. Very slight tenderness to palpation over the healing incision. NEURO: Alert and oriented 4. No focal deficits. Limitations: no limitations Course Vital Signs 11/02/21 11/02/21 11/02/21 16:31 18:38 20:37 Temperature 98.0 F Pulse Rate 58 L 56 L 56 L Respiratory 18 18 16 Rate Blood Pressure 119/66 116/73 126/86 O2 Sat by Pulse 97 97 97 Oximetry Medical Decision Making - Medical Decision Making Based on the patient's presentation and physical exam, I'm concerned for cardiac etiology for his current chest pain, particularly with his recent surgery. I possible on his chest wall pain. However we will obtain cardiac work up and troponin, EKG, chest x-ray. Will be Mr. [place] Lucian, Toradol as well as an aspirin. Patient was in agreement this plan. Patient's EKG showed no acute changes or signs of acute ischemia. Chest x-ray revealed no acute cardiopulmonary process. Laboratory studies were remarkable for an elevated BUN and creatinine of 49 and 2.25, and the setting of CK D with a prior creatinine last month that was similar. He'll be given a small fluid bolus and maintenance fluids. Patient's troponin is elevated to 0.059 which possibly multifactorial, including cardiac related versus the CK D. On reevaluation, patient's chest pain is improved. I did discuss with him the results of his laboratory studies and imaging and that I would like to admit the hospital for further monitoring. We will trend troponin. We'll have cardio logy evaluate him. Patient was in agreement this plan. Due to his chest pain with elevated troponin, he will be started on heparin drip for the nstemi. Patient was in agreement this plan. I spoke with the admitting team under Dr. Hansen he was in agreement this plan. Patient was therefore admitted in stable condition to telemetry bed. Cardiology was consulted. - Lab Data Result diagrams: 11/02/21 17:00 11/02/21 17:00 Lab Results 11/02/21 11/02/21 11/02/21 Range/Units 17:00 17:00 17:00 WBC 7.2 (3.8-10.6) k/uL RBC 3.80 L (4.30-5.90) m/uL Hgb 11.2 L D (13.0-17.5) gm/dL Hct 36.0 L (39.0-53.0) % MCV 94.7 (80.0-100.0) fL MCH 29.5 (25.0-35.0) pg MCHC 31.1 (31.0-37.0) g/dL RDW 15.9 H (11.5-15.5) % Plt Count 287 (150-450) k/uL MPV 7.1 Neutrophils % 74 % Lymphocytes % 16 % Monocytes % 5 % Eosinophils % 3 % Basophils % 1 % Neutrophils # 5.3 (1.3-7.7) k/uL Lymphocytes # 1.1 (1.0-4.8) k/uL Monocytes # 0.4 (0-1.0) k/uL Eosinophils # 0.2 (0-0.7) k/uL Basophils # 0.0 (0-0.2) k/uL Hypochromasia Marked PT 10.7 (9.0-12.0) sec INR 1.0 (<1.2) APTT 24.4 (22.0-30.0) sec Sodium 138 (137-145) mmol/L Potassium 4.6 (3.5-5.1) mmol/L Chloride 103 (98-107) mmol/L Carbon Dioxide 22 (22-30) mmol/L Anion Gap 13 mmol/L BUN 49 H (9-20) mg/dL Creatinine 2.25 H (0.66-1.25) mg/dL Est GFR (CKD-EPI)AfAm 37 (>60 ml/min/1.73 sqM) Est GFR (CKD-EPI)NonAf 32 (>60 ml/min/1.73 sqM) Glucose 135 H (74-99) mg/dL Calcium 8.6 (8.4-10.2) mg/dL Magnesium 1.6 (1.6-2.3) mg/dL Total Bilirubin 0.6 (0.2-1.3) mg/dL AST 26 (17-59) U/L ALT 24 (4-49) U/L Alkaline Phosphatase 92 (38-126) U/L Troponin I (0.000-0.034) ng/mL Total Protein 6.9 (6.3-8.2) g/dL Albumin 3.9 (3.5-5.0) g/dL 11/02/21 Range/Units 17:00 WBC (3.8-10.6) k/uL RBC (4.30-5.90) m/uL Hgb (13.0-17.5) gm/dL Hct (39.0-53.0) % MCV (80.0-100.0) fL MCH (25.0-35.0) pg MCHC (31.0-37.0) g/dL RDW (11.5-15.5) % Plt Count (150-450) k/uL MPV Neutrophils % % Lymphocytes % % Monocytes % % Eosinophils % % Basophils % % Neutrophils # (1.3-7.7) k/uL Lymphocytes # (1.0-4.8) k/uL Monocytes # (0-1.0) k/uL Eosinophils # (0-0.7) k/uL Basophils # (0-0.2) k/uL Hypochromasia PT (9.0-12.0) sec INR (<1.2) APTT (22.0-30.0) sec Sodium (137-145) mmol/L Potassium (3.5-5.1) mmol/L Chloride (98-107) mmol/L Carbon Dioxide (22-30) mmol/L Anion Gap mmol/L BUN (9-20) mg/dL Creatinine (0.66-1.25) mg/dL Est GFR (CKD-EPI)AfAm (>60 ml/min/1.73 sqM) Est GFR (CKD-EPI)NonAf (>60 ml/min/1.73 sqM) Glucose (74-99) mg/dL Calcium (8.4-10.2) mg/dL Magnesium (1.6-2.3) mg/dL Total Bilirubin (0.2-1.3) mg/dL AST (17-59) U/L ALT (4-49) U/L Alkaline Phosphatase (38-126) U/L Troponin I 0.059 H* (0.000-0.034) ng/mL Total Protein (6.3-8.2) g/dL Albumin (3.5-5.0) g/dL - EKG Data -: EKG Interpreted by Me EKG Comments: 12-lead Electrocardiogram Interpretation Note EKG was reviewed and interpreted by myself. 12-lead ECG performed at 1706 is interpreted by me as revealing sinus bradycardia at a rate of 54 beats per minute. [place] is normal. RI interval is 174 ms, QRS duration is 92 ms, QTc is 434 ms. There are chronic T wave inversions in leads aVL, as well as V3 through V6 which are seen on prior EKGs. No acute changes. No acute ST segment changes.. R wave progression across the precordium was satisfactory. By my interpretation this EKG is non-diagnostic for acute ischemia. Disposition Clinical Impression: Acute non-ST elevation myocardial infarction (NSTEMI), Chest pain, CKD (chronic kidney disease) Disposition: ADMITTED IP TO THIS HOSP Condition: Stable
[2021-11-02 18:34] LABS: Basophils % (A) 1 %; Eosinophils # (A) 0.2 k/uL (0-0.7); Eosinophils % (A) 3 %; Hypochromasia Marked; Lymphocytes # (A) 1.1 k/uL (1.0-4.8); Lymphocytes % (A) 16 %; MCH 29.5 pg (25.0-35.0); MCHC 31.1 g/dL (31.0-37.0); MCV 94.7 fL (80.0-100.0); Mean Platelet Volume 7.1; Monocytes # (A) 0.4 k/uL (0-1.0); Monocytes % (A) 5 %; Neutrophils # (A) 5.3 k/uL (1.3-7.7); Neutrophils % (A) 74 %; Platelet Count 287 k/uL (150-450); RDW 15.9 % (11.5-15.5); WBC 7.2 k/uL (3.8-10.6)
[2021-11-02 18:38] LABS: HGB 11.2 gm/dL (13.0-17.5)
--- NOTE | 2021-11-02 18:45 | XR ---
EXAMINATION TYPE: XR chest 2V DATE OF EXAM: 11/02/2021 COMPARISON: Chest radiograph 10/16/2021 HISTORY: Chest pain TECHNIQUE: Frontal and lateral views of the chest are obtained. FINDINGS: Patient is post median sternotomy and left atrial appendage clip placement. The heart is enlarged. Th e pulmonary vasculature is within normal limits. There is no focal air space opacity, pleural effusio n, or pneumothorax seen. The osseous structures are intact. IMPRESSION: No acute cardiopulmonary process.
[2021-11-02 18:49] LABS: Albumin 3.9 g/dL (3.5-5.0); Calcium 8.6 mg/dL (8.4-10.2); Magnesium 1.6 mg/dL (1.6-2.3); Partial Thromboplastin Time 24.4 sec (22.0-30.0); Potassium 4.6 mmol/L (3.5-5.1); Prothrombin Time 10.7 sec (9.0-12.0); Total Bilirubin 0.6 mg/dL (0.2-1.3); Total Protein 6.9 g/dL (6.3-8.2)
[2021-11-02] MEDS ORDERED: HEPARIN SODIUM 1,000 UN/ML (10ML VL) IV PRN (20:05)
[2021-11-02] MEDS ORDERED: HEPARIN SODIUM 1,000 UN/ML (10ML VL) IV ONE (20:05)
[2021-11-02] MEDS ORDERED: HEPARIN SOD,PORK IN 0.45% NACL 25,000 UNIT in 0.45% NACL 1 250ML.BAG IV SCH (20:15)
[2021-11-02] MEDS ORDERED: cefTRIAXone IN SWFI 1,000 MG/10 ML SYRINGE IVP STA (20:16)
[2021-11-02] MEDS ORDERED: MORPHINE SULFATE 4 MG/ML SYRINGE IV PRN (20:17)
[2021-11-02] MEDS ORDERED: NALOXONE 0.4 MG/ML 1 ML VIAL IV PRN (20:17)
[2021-11-02] MEDS ORDERED: SODIUM CHLORIDE 0.9% 1,000 ML IV STA (22:43)
[2021-11-02] MEDS ORDERED: SODIUM CHLORIDE 0.9% 500 ML 500 ML IV STA (22:43)
[2021-11-02] MEDS: METOPROLOL TARTRATE 50 MG TAB PO SCH (23:27)
[2021-11-02] MEDS: ATORVASTATIN 80 MG TAB PO SCH (23:27)
[2021-11-03 02:24] LABS: Basophils # (A) 0.1 k/uL (0-0.2); Basophils % (A) 1 %; Eosinophils # (A) 0.3 k/uL (0-0.7); Eosinophils % (A) 5 %; HCT 36.6 % (39.0-53.0); HGB 11.2 gm/dL (13.0-17.5); Hypochromasia Marked; Lymphocytes # (A) 1.7 k/uL (1.0-4.8); Lymphocytes % (A) 25 %; MCH 28.7 pg (25.0-35.0); MCHC 30.5 g/dL (31.0-37.0); MCV 94.1 fL (80.0-100.0); Mean Platelet Volume 7.2; Monocytes # (A) 0.4 k/uL (0-1.0); Monocytes % (A) 5 %; Neutrophils # (A) 4.3 k/uL (1.3-7.7); Neutrophils % (A) 62 %; Platelet Count 248 k/uL (150-450); RBC 3.89 m/uL (4.30-5.90); RDW 15.7 % (11.5-15.5); WBC 6.9 k/uL (3.8-10.6)
[2021-11-03 02:43] LABS: Partial Thromboplastin Time 26.7 sec (22.0-30.0)
[2021-11-03 02:45] LABS: Magnesium 1.9 mg/dL (1.6-2.3); Potassium 4.5 mmol/L (3.5-5.1); Total Bilirubin 0.4 mg/dL (0.2-1.3); Total Protein 7.2 g/dL (6.3-8.2)
[2021-11-03] MEDS ORDERED: HYDROcodone/APAP 5-325MG 1 EACH TAB PO PRN ×2 (07:53)
[2021-11-03] MEDS: glipiZIDE 5 MG TAB PO SCH (09:18)
[2021-11-03] MEDS: METOPROLOL TARTRATE 50 MG TAB PO SCH ×2 (09:18→21:46)
[2021-11-03] MEDS: CLOPIDOGREL 75 MG TAB PO SCH (09:18)
[2021-11-03] MEDS: amLODIPine 5 MG TAB PO SCH (09:18)
[2021-11-03] MEDS: POTASSIUM CHLORIDE ER 10 MEQ TAB.ER.PRT PO SCH (09:18)
[2021-11-03] MEDS: FUROSEMIDE 40 MG TAB PO SCH (09:18)
[2021-11-03] MEDS: SODIUM BICARBONATE TAB 650 MG TAB PO SCH (09:19)
[2021-11-03] MEDS: FERROUS SULFATE 325 MG TAB PO SCH ×2 (09:19→19:00)
[2021-11-03] MEDS: SERTRALINE 50 MG TAB PO SCH (09:19)
[2021-11-03] MEDS: ASPIRIN 81 MG PO SCH (09:19)
[2021-11-03] MEDS: AMIODARONE 200 MG TAB PO SCH (09:19)
--- NOTE | 2021-11-03 13:33 | HP ---
HISTORY AND PHYSICAL CHIEF COMPLAINT: Chest pain. HISTORY OF PRESENT ILLNESS: This is another admission for this 51-year-old white male with extensive history of heart disease. He had numerous stents placed in the past going back to around 2006. Earlier this month on October 28, he underwent a quadruple coronary artery bypass. He has been doing well, but he was waving his arms around when he felt a pop in the chest. He was not associated with diaphoresis, shortness of breath, arrhythmias, syncope, etc. He came to the emergency room. REVIEW OF SYSTEMS: He has had no neurologic problems, difficulty with vision hearing, cough, hemoptysis, sputum production, orthopnea, PND, abdominal pain, nausea, vomiting, hematemesis, melena, hematochezia, jaundice, hepatitis, cirrhosis, hematuria, frequency, urgency, renal failure, etc. He does have a past history of diabetes. He is on an antidepressant. Past medical history reveals that he is ALLERGIC TO PENICILLIN AND SULFA. He used to smoke but does not any longer. PHYSICAL EXAMINATION: Blood pressure is 121/78 with a pulse of 74, respirations of 32. In general, he appeared to be slightly overweight and in no acute distress. Skin color is normal skin is warm, dry. Lymph nodes are not enlarged. Head, ears, eyes, nose, mouth and throat were normal. Neck veins are not distended. Carotids are normal. Chest is clear. Cardiac exam demonstrated sinus rhythm and healing mid sternotomy incision. The abdomen is slightly protuberant, soft and nontender. Extremities: Normal. Neurological is intact. IMPRESSION: He is admitted to the hospital with diagnoses of: 1. Chest wall pain. 2. Coronary artery disease status post recent quadruple bypass. 3. History of hypertension. 4. History of depression. 5. History of nicotine abuse. 6. Type 2 NIDDM. PLAN: 1. Bedrest. 2. IV fluids. 3. Serial EKGs and enzymes. 4. Cardiology consult. 5. Probably home in that this does not sound like it was a cardiac event. MMODL / IJN: [id number] /
--- NOTE | 2021-11-03 13:39 | PN ---
PROGRESS NOTE DATE OF SERVICE: 11/03/2021 CHIEF COMPLAINT: Incisional chest wall pain. HISTORY OF PRESENT ILLNESS: This gentleman is doing well. He has had no further chest pain, shortness of breath, arrhythmias, palpitations, etc. PHYSICAL EXAMINATION: Vital signs are normal. Chest is clear. Cardiac exam is normal. Abdomen is soft, nontender. IMPRESSION: 1. Anterior chest wall pain. 2. Coronary artery disease status post recent quadruple coronary artery bypass grafting. 3. Diabetes. 4. Hypertension. PLAN: Cardiology consult. MMODL / IJN: [id number] /
--- NOTE | 2021-11-03 13:40 | P.CRDCN ---
History of Present Illness History of present illness: HISTORY OF PRESENTING ILLNESS Patient is a pleasant 51-year-old male with history of coronary artery disease with recent 4 vessel CABG on 10/07/2021, post operative atrial fibrillation, prior myocardial infarction and stenting in 2008, hypertension, hyperlipidemia, diabetes mellitus, COPD, obstructive sleep apnea, anemia, tobacco abuse. He follows with Dr. Bello. We have been consulted forc chest pain. Patient presents to the emergency department with complaints of intermittent upper chest "popping" sensation with movement of his chest and arms since 09/30/21. He sates on 09/30/21, he had an episode of slipping on the ice, he did not fall, but states he over used his arms and felt a popping sensation in his upper chest. He states this has been happening intermittently for a month. He denies any chest pain, shortness of breath, nausea, diaphoresis, lightheadedness, dizziness, syncope or near syncope. He denies any fever, cough, chills. Patient recently admitted in September 2021, for chest pain and therefore underwent stress testing which was abnormal. He was transferred from [facility] and had heart catheterization which showed multivessel disease and therefore CABG workup was recommended. Echo performed 10/04/2021 revealed EF 55-60%, mild mitral regurgitation. 10/07/2021 Patient underwent 4 vessel CABG (HONG to LAD, left radial to ramus intermedius, SVG to OM 2, and SVG to PDA). Postoperative complications included H fibrillation therefore he was discharged on amiodarone. Patient recently saw Dr. Bello in the office on 10/21/2021 and his amiodarone was decreased to 200 mg daily DIAGNOSTICS EKG revealed sinus bradycardia, heart rate 54, T wave inversions in anterior lateral leads. EKG in the office on 10/21/2021 with similar findings Chest x-ray revealed no acute cardiopulmonary process. Post median sternotomy and left atrial appendage clip placement Labs, WBC 6.9 coming 11.2, platelets 248, troponin 0.06, 0.05, 0.05, Coban negative, sodium 138, potassium 4.5, BUN 53, serum creatinine 2.5 REVIEW OF SYSTEMS At the time of my exam: CONSTITUTIONAL: Denies fever or chills. CARDIOVASCULAR: Denies chest pain, shortness of breath, orthopnea, PND or palpi tations. RESPIRATORY: Denies cough. GASTROINTESTINAL: Denies abdominal pain, diarrhea, constipation, nausea or vomiting. MUSCULOSKELETAL: Denies myalgias. NEUROLOGIC: Denies numbness, tingling, headacbe or weakness. ENDOCRINE: Denies fatigue, weight change, polydipsia or polyurina. GENITOURINARY: Denies burning, hematuria or urgency with micturation. HEMATOLOGIC: Denies history of anemia or bleeding. PHYSICAL EXAMINATION Vital signs reviewed. CONSTITUTIONAL: No apparent distress. HEENT: Head is normocephalic. Pupils are equal, round. Sclerae anicteric. Mucous membranes of the mouth are moist. No JVD. No carotid bruit. CHEST EXAMINATION: Lungs are clear to auscultation. No chest wall tenderness is noted on palpation or with deep breathing. Incision across anterior chest wall, well approximated no redness, swelling HEART EXAMINATION: Regular rate and rhythm. S1, S2 heard. No murmurs, gallops or rub. ABDOMEN: Soft, nontender. Positive bowel sounds. EXTREMITIES: 2+ peripheral pulses, no lower extremity edema and no calf tenderness. NEUROLOGIC EXAMINATION: Patient is awake, alert and oriented x3. ASSESSMENT Chest pain, atypical, appears to be musculoskeletal in nature Elevated troponin, likely related to patient's recent bypass, not indicative of acute coronary syndrome Multivessel coronary artery disease status post four-vessel CABG on 10/07/2021 Postoperative atrial fibrillation after CABG Hypertension Hyperlipidemia Diabetes mellitus type 2 Tobacco abuse COPD CKD PLAN: From a cardiology perspective, patient's chest pain appears noncardiac in nature, appears likely musculoskeletal. We will continue patient on his home cardiac medications. Follow up with Dr. Bello in the outpatient setting Nurse practitioner note has been reviewed by physician. Signing provider agrees with the documented findings, assessment, and plan of care. Past Medical History Past Medical History: Asthma, Coronary Artery Disease (CAD), Chest Pain / Angina, Heart Failure, Diabetes Mellitus, GERD/Reflux, Hyperlipidemia, Hypertension, Myocardial Infarction ([place]), Renal Disease, Sleep Apnea/CPAP/BIPAP Last Myocardial Infarction Date:: 2008 History of Any Multi-Drug Resistant Organisms: None Reported Past Surgical History: Adenoidectomy, Coronary Bypass/CABG, Heart Catheterization With Stent, Tonsillectomy Additional Past Surgical History / Comment(s): cardiac stents x 5, quad bipass open heart 10/07/2021 Past Anesthesia/Blood Transfusion Reactions: Postoperative Nausea & Vomiting (PONV) Past Psychological History: ADD/ADHD, Anxiety, Bipolar, Depression, PTSD Smoking Status: Former smoker Past Alcohol Use History: None Reported Past Drug Use History: None Reported - Past Family History Father Family Medical History: Cancer, Coronary Artery Disease (CAD), Myocardial Infarction ([place]) Additional Family Medical History / Comment(s): at age 68 from mesothelioma, diagnosis of heart disease age of 60 Mother Family Medical History: Cancer, Coronary Artery Disease (CAD), Diabetes Mellitus, Liver Disease, Myocardial Infarction ([place]) Additional Family Medical History / Comment(s): from liver cancer, diagnosed with heart disease before the age of 60 Medications and Allergies Home Medications Medication Instructions Recorded Confirmed Type Acetaminophen Tab [Tylenol] 650 mg PO Q4HR PRN tab 10/14/21 11/02/21 Rx Ascorbic Acid [Vitamin C] 500 mg PO BID-W/MEALS #60 tab 10/14/21 11/02/21 Rx Atorvastatin [Lipitor] 80 mg PO HS #30 tab 10/14/21 11/02/21 Rx Clopidogrel [Plavix] 75 mg PO DAILY #30 tab 10/14/21 11/02/21 Rx Ferrous Sulfate [Iron (65 MG 325 mg PO BID-W/MEALS #60 tab 10/14/21 11/02/21 Rx Elemental)] Furosemide [Lasix] 40 mg PO DAILY #30 tablet 10/14/21 11/02/21 Rx Metoprolol Tartrate [Lopressor] 100 mg PO BID #120 tab 10/14/21 11/02/21 Rx Potassium Chloride ER [K-Dur 10] 10 meq PO DAILY #30 tab 10/14/21 11/02/21 Rx Sertraline [Zoloft] 50 mg PO DAILY #30 tab 10/14/21 11/02/21 Rx Sodium Bicarbonate Tab 650 mg PO DAILY #30 tab 10/14/21 11/02/21 Rx amLODIPine [Norvasc] 5 mg PO DAILY #30 tab 10/14/21 11/02/21 Rx glipiZIDE [Glucotrol] 10 mg PO DAILY #60 tab 10/14/21 11/02/21 Rx Nitroglycerin Sl Tabs [Nitrostat] 0.4 mg SL Q5M PRN 11/02/21 11/02/21 History Amiodarone [Cordarone] 200 mg PO DAILY 11/03/21 11/03/21 History Allergies Allergy/AdvReac Type Severity Reaction Status Date / Time Penicillins Allergy Swelling Verified 11/02/21 18:55 Sulfa (Sulfonamide Allergy Swelling Verified 11/02/21 18:55 Antibiotics) Physical Exam Vitals: Vital Signs Temp Pulse Resp BP Pulse Ox 11/03/21 06:50 65 18 115/80 98 11/03/21 03:25 61 18 120/75 98 11/02/21 23:30 55 L 18 105/71 97 11/02/21 20:37 56 L 16 126/86 97 11/02/21 18:38 56 L 18 116/73 97 11/02/21 16:31 98.0 F 58 L 18 119/66 97 Intake and Output 11/02/21 11/03/21 11/03/21 22:59 06:59 14:59 Other: Weight 127.006 kg Results 11/03/21 01:57 11/03/21 01:57 Cardiac Enzymes 11/02/21 11/02/21 11/02/21 Range/Units 17:00 17:00 21:34 AST 26 (17-59) U/L Troponin I 0.059 H* 0.062 H* (0.000-0.034) ng/mL 11/03/21 11/03/21 Range/Units 00:27 01:57 AST 24 (17-59) U/L Troponin I 0.059 H* (0.000-0.034) ng/mL Coagulation 11/02/21 11/03/21 Range/Units 17:00 01:57 PT 10.7 11.0 (9.0-12.0) sec APTT 24.4 26.7 (22.0-30.0) sec CBC 11/02/21 11/03/21 Range/Units 17:00 01:57 WBC 7.2 6.9 (3.8-10.6) k/uL RBC 3.80 L 3.89 L (4.30-5.90) m/uL Hgb 11.2 L D 11.2 L (13.0-17.5) gm/dL Hct 36.0 L 36.6 L (39.0-53.0) % Plt Count 287 248 (150-450) k/uL Comprehensive Metabolic Panel 11/02/21 11/03/21 Range/Units 17:00 01:57 Sodium 138 138 (137-145) mmol/L Potassium 4.6 4.5 (3.5-5.1) mmol/L Chloride 103 106 (98-107) mmol/L Carbon Dioxide 22 20 L (22-30) mmol/L BUN 49 H 53 H (9-20) mg/dL Creatinine 2.25 H 2.50 H (0.66-1.25) mg/dL Glucose 135 H 129 H (74-99) mg/dL Calcium 8.6 9.0 (8.4-10.2) mg/dL AST 26 24 (17-59) U/L ALT 24 23 (4-49) U/L Alkaline Phosphatase 92 97 (38-126) U/L Total Protein 6.9 7.2 (6.3-8.2) g/dL Albumin 3.9 4.0 (3.5-5.0) g/dL Current Medications Generic Name Dose Route Start Last Admin Trade Name Freq PRN Reason Stop Dose Admin Hydrocodone Bitart/Acetaminophen 1 each 11/03/21 07:53 Hydrocodone/Apap 5-325mg 1 Each Tab PO Q4HR PRN Pain Scale 1 to 5 Hydrocodone Bitart/Acetaminophen 2 each 11/03/21 07:53 Hydrocodone/Apap 5-325mg 1 Each Tab PO Q4HR PRN Pain Scale 6 to 10 Amiodarone HCl 200 mg 11/03/21 09:00 Amiodarone 200 Mg Tab PO DAILY [facility] Amlodipine Besylate 5 mg 11/03/21 09:00 Amlodipine 5 Mg Tab PO DAILY [facility] Aspirin 81 mg 11/03/21 09:00 Aspirin 81 Mg PO DAILY [facility] Atorvastatin Calcium 80 mg 11/02/21 21:00 11/02/21 23:27 Atorvastatin 80 Mg Tab PO Not Given HS [facility] Clopidogrel Bisulfate 75 mg 11/03/21 09:00 Clopidogrel 75 Mg Tab PO DAILY [facility] Ferrous Sulfate 325 mg 11/03/21 07:30 Ferrous Sulfate 325 Mg Tab PO BID-W/MEALS [facility] Furosemide 40 mg 11/03/21 09:00 Furosemide 40 Mg Tab PO DAILY [facility] Glipizide 10 mg 11/03/21 09:00 Glipizide 5 Mg Tab PO DAILY [facility] Heparin Sodium (Porcine) 0 unit 11/02/21 20:05 Heparin Sodium 1,000 Un/Ml (10ml Vl) IV PER PROTOCOL PRN Low PTT Protocol Heparin Sodium/Sodium Chloride 250 mls @ 10 mls/hr 11/02/21 20:15 11/02/21 20:33 25,000 unit/ Sodium Chloride IV 7.874 units/kg/hr .Q24H NAYELY 10 mls/hr Administration Protocol 7.874 UNITS/KG/HR Sodium Chloride 1,000 mls @ 75 mls/hr 11/02/21 22:43 11/02/21 23:27 Saline 0.9% IV 11/03/21 12:02 75 mls/hr .[id number] STA Administration Metoprolol Tartrate 100 mg 11/02/21 21:00 11/02/21 23:27 Metoprolol Tartrate 50 Mg Tab PO Not Given BID NAYELY Potassium Chloride 10 meq 11/03/21 09:00 Potassium Chloride Er 10 Meq Tab.Er.Prt PO DAILY NAYELY Sertraline HCl 50 mg 11/03/21 09:00 Sertraline 50 Mg Tab PO DAILY NAYELY Sodium Bicarbonate 650 mg 11/03/21 09:00 Sodium Bicarbonate Tab 650 Mg Tab PO DAILY NAYELY Intake and Output 11/02/21 11/03/21 11/03/21 22:59 06:59 14:59 Other: Weight 127.006 kg 11/03/21 01:57 11/03/21 01:57
[2021-11-03 19:02] VITALS: RESP 18
[2021-11-03] MEDS: ATORVASTATIN 80 MG TAB PO SCH (21:46)
[2021-11-04] MEDS: FERROUS SULFATE 325 MG TAB PO SCH ×2 (06:20→15:54)
[2021-11-04] MEDS: ASPIRIN 81 MG PO SCH (07:59)
[2021-11-04] MEDS: SERTRALINE 50 MG TAB PO SCH (07:59)
[2021-11-04] MEDS: amLODIPine 5 MG TAB PO SCH (07:59)
[2021-11-04] MEDS: METOPROLOL TARTRATE 50 MG TAB PO SCH (07:59)
[2021-11-04] MEDS: POTASSIUM CHLORIDE ER 10 MEQ TAB.ER.PRT PO SCH (07:59)
[2021-11-04] MEDS: CLOPIDOGREL 75 MG TAB PO SCH (07:59)
[2021-11-04] MEDS: FUROSEMIDE 40 MG TAB PO SCH (07:59)
[2021-11-04] MEDS: SODIUM BICARBONATE TAB 650 MG TAB PO SCH (07:59)
[2021-11-04] MEDS: glipiZIDE 5 MG TAB PO SCH (07:59)
[2021-11-04] MEDS: AMIODARONE 200 MG TAB PO SCH (08:11)
--- NOTE | 2021-11-04 09:09 | P.GSCN ---
History of Present Illness Consult date: 11/03/21 Reason for Consult: Known to cardiac surgery service, recent quadruple vessel coronary artery bypass grafting surgery on 10/07/2021. Requesting physician: Romel Zhou History of present illness: This is a 51-year-old gentleman who follows on an outpatient basis with Dr. Hansen for his primary care services. He is a past medical history significant for coronary artery disease with undergoing a quadruple coronary artery bypass grafting surgery on October 07[address] Saulo Renee, postoperative paroxysmal atrial fibrillation, previous myocardial infarction, history of coronary artery disease with previous stenting 5, hypertension, hyperlipidemia, [id number] diabetes mellitus, chronic kidney disease stage III, obstructive sleep apnea currently not using CPAP, anemia, morbid obesity, history of gout, GERD, depression, anxiety, PTSD, history of tobacco dependence and family history of premature coronary artery disease with both parents being diagnosed before the age of 60. Recently, the patient had experienced an episode of chest pain associated with shortness of breath and lig htheadedness. Due to his symptoms he underwent workup including a stress test which demonstrated lateral ischemia and subsequently underwent a cardiac catheterization which demonstrated triple-vessel coronary artery disease. On 10/07/2021 he underwent a quadruple coronary artery bypass grafting performed by Dr. Saulo Renee. He was subsequently discharged home on 10/14/2021 with home health care following. Yesterday 11/02/2021 the patient presented to the emergency department here at [facility] due to some complaints of chest wall pain. The patient reports on 10/31/2021 while trying to catch the bus he slipped on some ice without falling, but was swinging his arms to try to gain his balance. While he was swinging his arms he felt a popping sensation to his upper part of his sternal. The patient reports that since this episode he has been feeling some clicking sensation with some discomfort to his upper portion of his sternum with certain movements and coughing. He denies any recent fever, chills, nausea, vomiting, shortness of breath, drainage from his incision, headache, weakness, edema, diarrhea or constipation. Laboratory results on on presentation showed a WBC count of 7.2, hemoglobin 11.2, hematocrit 36.0, platelets 287, INR 1.0, PT 10.7, PTT 24.4, sodium 138, potassium 4.6, BUN 49, creatinine 2.25, glucose 135 and serial troponins as high as 0.062. A coronavirus PCR test was completed which showed not detected. The patient does report he is vaccinated and boosted against COVID-19. A chest x- ray was completed and showed no acute pulmonary process. A 12-lead EKG was completed which showed sinus bradycardia with a heart rate of 54 BPM, and a STT wave abnormality. Subsequently, due to the patient's presenting symptoms, elevated serial troponins and his EKG results cardiology was consulted and he was placed on a 24-hour observation. The patient is known to the cardiothoracic surgery service and due to the patient's recent coronary artery bypass grafting surgery, Dr. Saulo Renee was consulted for further evaluation and treatment r ecommendations. Review of Systems A 14 point review of systems was completed was negative except that mentioned in the HPI. Past Medical History Past Medical History: Atrial Fibrillation (Postoperative paroxysmal atrial fibrillation, currently bedside telemetry showing sinus bradycardia), Asthma, Coronary Artery Disease (CAD), Chest Pain / Angina, Heart Failure, Diabetes Mellitus, GERD/Reflux, Hyperlipidemia, Hypertension, Myocardial Infarction ([place]), Renal Disease, Sleep Apnea/CPAP/BIPAP Additional Past Medical History / Comment(s): Morbid obesity Last Myocardial Infarction Date:: 2008 History of Any Multi-Drug Resistant Organisms: None Reported Past Surgical History: Adenoidectomy, Coronary Bypass/CABG, Heart Catheterizat ion With Stent, Tonsillectomy Additional Past Surgical History / Comment(s): cardiac stents x 5, quad bipass open heart 10/07/2021 Past Anesthesia/Blood Transfusion Reactions: Postoperative Nausea & Vomiting (PONV) Past Psychological History: ADD/ADHD, Anxiety, Bipolar, Depression, PTSD Smoking Status: Former smoker Past Alcohol Use History: None Reported Past Drug Use History: None Reported - Past Family History Father Family Medical History: Cancer, Coronary Artery Disease (CAD), Myocardial Infarction ([place]) Additional Family Medical History / Comment(s): at age 68 from mesothelioma, diagnosis of heart disease age of 60 Mother Family Medical History: Cancer, Coronary Artery Disease (CAD), Diabetes Mellitus, Liver Disease, Myocardial Infarction ([place]) Additional Family Medical History / Comment(s): from liver cancer, diagnosed with heart disease before the age of 60 Medications and Allergies Home Medications Medication Instructions Recorded Confirmed Type Acetaminophen Tab [Tylenol] 650 mg PO Q4HR PRN tab 10/14/21 11/02/21 Rx Ascorbic Acid [Vitamin C] 500 mg PO BID-W/MEALS #60 tab 10/14/21 11/02/21 Rx Atorvastatin [Lipitor] 80 mg PO HS #30 tab 10/14/21 11/02/21 Rx Clopidogrel [Plavix] 75 mg PO DAILY #30 tab 10/14/21 11/02/21 Rx Ferrous Sulfate [Iron (65 MG 325 mg PO BID-W/MEALS #60 tab 10/14/21 11/02/21 Rx Elemental)] Furosemide [Lasix] 40 mg PO DAILY #30 tablet 10/14/21 11/02/21 Rx Metoprolol Tartrate [Lopressor] 100 mg PO BID #120 tab 10/14/21 11/02/21 Rx Potassium Chloride ER [K-Dur 10] 10 meq PO DAILY #30 tab 10/14/21 11/02/21 Rx Sertraline [Zoloft] 50 mg PO DAILY #30 tab 10/14/21 11/02/21 Rx Sodium Bicarbonate Tab 650 mg PO DAILY #30 tab 10/14/21 11/02/21 Rx amLODIPine [Norvasc] 5 mg PO DAILY #30 tab 10/14/21 11/02/21 Rx glipiZIDE [Glucotrol] 10 mg PO DAILY #60 tab 10/14/21 11/02/21 Rx Nitroglycerin Sl Tabs [Nitrostat] 0.4 mg SL Q5M PRN 11/02/21 11/02/21 History Amiodarone [Cordarone] 200 mg PO DAILY 11/03/21 11/03/21 History Allergies Allergy/AdvReac Type Severity Reaction Status Date / Time Penicillins Allergy Swelling Verified 11/02/21 18:55 Sulfa (Sulfonamide Allergy Swelling Verified 11/02/21 18:55 Antibiotics) Surgical - Exam Vital Signs Temp Pulse Resp BP Pulse Ox 98.0 F 58 L 18 119/66 97 11/02/21 16:31 11/02/21 16:31 11/02/21 16:31 11/02/21 16:31 11/02/21 16:31 CONSTITUTIONAL: Sitting up to the bedside edge in the emergency department, appears comfortable, cooperative, no apparent acute distress. HEENT: Neck is supple, no JVD, no lymphadenopathy. Mucous membranes are pink and moist. Poor dentition. Conjunctiva normal. RESPIRATORY: Lungs sounds essentially clear throughout. Respirations are symmetrical and nonlabored. Currently on room air with oxygen saturations 96%. CARDIOVASCULAR: Regular rhythm and rate. S1 and S2 present, negative for S3, gallop or murmur. Occasional clicking felt to the proximal portion of his sternum with coughing. Palpable peripheral pulses bilaterally, No calf pain or tenderness noted. Heart hugger in place with patient demonstrating appropriate use. Knee-high RHIANNON hose in place to his bilateral lower extremities. GASTROINTESTINAL: Abdomen soft, nontender, nondistended. Active bowel sounds present 4 quadrants. No organomegaly appreciated. No guarding or rigidity. GENITOURINARY: Voiding clear maco urine. INTEGUMENTARY: Skin is warm and dry with no evidence of clubbing or cyanosis. Midline sternal incision clean dry and well approximated, no redness or drainage. Left lower extremity EVH sites well approximated without redness or drainage. Left arm radial artery harvest sites clean, dry and approximated. No drainage or redness is present. NEUROLOGIC: Cranial nerves II through XII intact. No focal deficits. MUSKULOSKELETAL: Able to move all extremities, strength equal bilaterally. PSYCHIATRIC: Alert and oriented to person place and time, appropriate affect, intact judgment and insight. Results - Labs 11/03/21 01:57 11/03/21 01:57 Abnormal Lab Results - Last 24 Hours (Table) 11/02/21 11/02/21 11/02/21 Range/Units 17:00 17:00 17:00 RBC 3.80 L (4.30-5.90) m/uL Hgb 11.2 L D (13.0-17.5) gm/dL Hct 36.0 L (39.0-53.0) % MCHC (31.0-37.0) g/dL RDW 15.9 H (11.5-15.5) % Carbon Dioxide (22-30) mmol/L BUN 49 H (9-20) mg/dL Creatinine 2.25 H (0.66-1.25) mg/dL Glucose 135 H (74-99) mg/dL Troponin I 0.059 H* (0.000-0.034) ng/mL 0211/03/21 11/03/21 Range/Units 21:34 00:27 01:57 RBC (4.30-5.90) m/uL Hgb (13.0-17.5) gm/dL Hct (39.0-53.0) % MCHC (31.0-37.0) g/dL RDW (11.5-15.5) % Carbon Dioxide 20 L (22-30) mmol/L BUN 53 H (9-20) mg/dL Creatinine 2.50 H (0.66-1.25) mg/dL Glucose 129 H (74-99) mg/dL Troponin I 0.062 H* 0.059 H* (0.000-0.034) ng/mL 11/03/21 Range/Units 01:57 RBC 3.89 L (4.30-5.90) m/uL Hgb 11.2 L (13.0-17.5) gm/dL Hct 36.6 L (39.0-53.0) % MCHC 30.5 L (31.0-37.0) g/dL RDW 15.7 H (11.5-15.5) % Carbon Dioxide (22-30) mmol/L BUN (9-20) mg/dL Creatinine (0.66-1.25) mg/dL Glucose (74-99) mg/dL Troponin I (0.000-0.034) ng/mL Diabetes panel 11/02/21 11/03/21 Range/Units 17:00 01:57 Sodium 138 138 (137-145) mmol/L Potassium 4.6 4.5 (3.5-5.1) mmol/L Chloride 103 106 (98-107) mmol/L Carbon Dioxide 22 20 L (22-30) mmol/L BUN 49 H 53 H (9-20) mg/dL Creatinine 2.25 H 2.50 H (0.66-1.25) mg/dL Glucose 135 H 129 H (74-99) mg/dL Calcium 8.6 9.0 (8.4-10.2) mg/dL AST 26 24 (17-59) U/L ALT 24 23 (4-49) U/L Alkaline Phosphatase 92 97 (38-126) U/L Total Protein 6.9 7.2 (6.3-8.2) g/dL Albumin 3.9 4.0 (3.5-5.0) g/dL Calcium panel 11/02/21 11/03/21 Range/Units 17:00 01:57 Calcium 8.6 9.0 (8.4-10.2) mg/dL Albumin 3.9 4.0 (3.5-5.0) g/dL Pituitary panel 11/02/21 11/03/21 Range/Units 17:00 01:57 Sodium 138 138 (137-145) mmol/L Potassium 4.6 4.5 (3.5-5.1) mmol/L Chloride 103 106 (98-107) mmol/L Carbon Dioxide 22 20 L (22-30) mmol/L BUN 49 H 53 H (9-20) mg/dL Creatinine 2.25 H 2.50 H (0.66-1.25) mg/dL Glucose 135 H 129 H (74-99) mg/dL Calcium 8.6 9.0 (8.4-10.2) mg/dL Adrenal panel 11/02/21 11/03/21 Range/Units 17:00 01:57 Sodium 138 138 (137-145) mmol/L Potassium 4.6 4.5 (3.5-5.1) mmol/L Chloride 103 106 (98-107) mmol/L Carbon Dioxide 22 20 L (22-30) mmol/L BUN 49 H 53 H (9-20) mg/dL Creatinine 2.25 H 2.50 H (0.66-1.25) mg/dL Glucose 135 H 129 H (74-99) mg/dL Calcium 8.6 9.0 (8.4-10.2) mg/dL Total Bilirubin 0.6 0.4 (0.2-1.3) mg/dL AST 26 24 (17-59) U/L ALT 24 23 (4-49) U/L Alkaline Phosphatase 92 97 (38-126) U/L Total Protein 6.9 7.2 (6.3-8.2) g/dL Albumin 3.9 4.0 (3.5-5.0) g/dL - Imaging Chest x-ray: report reviewed, image reviewed EKG: image reviewed Assessment and Plan Assessment: 1. Chest wall discomfort, likely due to his slipping on ice on 10/31/2021 as he does have some clicking and discomfort to his proximal sternum with coughing 2. History of coronary artery disease, with previous stenting 5 most recently in 2008, status post 4 vessel coronary artery bypass grafting surgery on 10/07/2021 3. History of previous myocardial infarction 4. Preserved left ventricular function with an ejection fraction of 55-60% 5. History of hypertension 4. Hyperlipidemia 5. [id number] diabetes mellitus with a recent hemoglobin A1c of 6.3% 6. Morbid obesity with a BMI of 40.2 kg/m 7. Chronic kidney disease stage III 8. Obstructive sleep apnea currently not using CPAP 9. History of anemia 10. History of gout 11. History of GERD 12. History of tobacco dependence with recent smoking cessation and a recent preoperative FEV1 62% of predicted value 13. History of postoperative atrial fibrillation a known common occurrence af ter cardiac surgery, and currently remote telemetry showing sinus bradycardia 14. Family history of premature coronary artery disease with both parents diagnosed before the age of 60 15. Vaccinated and boosted against COVID-19 Plan: The patient was seen and examined at his bedside in the emergency department. His chart diagnostics were reviewed. His case was discussed in detail with Dr. Saulo Renee from cardiothoracic surgery. We will obtain a 2-D echocardiogram to evaluate his LV function. He has been instructed to diligently use his heart hugger. Continue to follow postoperative cardiac surgery discharge instructions. Continue to take medications as prescribed. The patient has been instructed if he should develop any redness or drainage from his sternal incision to please call the cardiothoracic surgery service. Per the cardiothoracic surgery standpoint when okay with primary care service and other consultants the patient can be discharged home. More recommendations to follow based on patient's clinical course. Thank you for this consult and we look forward to working with you in the care of this patient. Time with Patient: Greater than 30
--- NOTE | 2021-11-04 09:19 | P.PN ---
Subjective Progress Note Date: 11/04/21 Principal diagnosis: This is a 51-year-old gentleman who follows on an outpatient basis with Dr. Hansen for his primary care services. He is a past medical history significant for coronary artery disease with undergoing a quadruple coronary artery bypass grafting surgery on October [address] Saulo Renee, postoperative paroxysmal atrial fibrillation, previous myocardial infarction, history of coronary artery disease with previous stenting 5, hypertension, hyperlipidemia, aqt-lxhqygr-vkututnsc diabetes mellitus, chronic kidney disease stage III, obstructive sleep apnea currently not using CPAP, anemia, morbid obesity, history of gout, GERD, depression, anxiety, PTSD, history of tobacco dependence and family history of premature coronary artery disease with both parents being diagnosed before the age of 60. Recently, the patient had experienced an episode of chest pain associated with shortness of breath and lightheadedness. Due to his symptoms he underwent workup including a stress test which demonstrated lateral ischemia and subsequently underwent a cardiac catheterization which demonstrated triple-vessel coronary artery disease. On 10/07/2021 he underwent a quadruple coronary artery bypass grafting performed by Dr. Saulo Renee. He was subsequently discharged home on 10/14/2021 with home health care following. Yesterday 11/02/2021 the patient presented to the emergency department here at [facility] due to some complaints of chest wall pain. The patient reports on 10/31/2021 while trying to catch the bus he slipped on some ice without falling, but was swinging his arms to try to gain his balance. While he was swinging his arms he felt a popping sensation to his upper part of his sternal. The patient reports that since this episode he has been feeling some clicking sensation with some discomfort to his upper portion of his sternum with certain movements and coughing. He denies any recent fever, chills, nausea, vomiting, shortness of breath, drainage from his incision, headache, weakness, edema, diarrhea or constipation. Laboratory results on on presentation showed a WBC count of 7.2, hemoglobin 11.2, hematocrit 36.0, platelets 287, INR 1.0, PT 10.7, PTT 24.4, sodium 138, potassium 4.6, BUN 49, creatinine 2.25, glucose 135 and serial troponins as high as 0.062. A coronavirus PCR test was completed which showed not detected. The patient does report he is vaccinated and boosted against COVID-19. A chest x- ray was completed and showed no acute pulmonary process. A 12-lead EKG was completed which showed sinus bradycardia with a heart rate of 54 BPM, and a STT wave abnormality. Subsequently, due to the patient's presenting symptoms, elevated serial troponins and his EKG results cardiology was consulted and he was placed on a 24-hour observation. The patient is known to the cardiothoracic surgery service and due to the patient's recent coronary artery bypass grafting surgery, Dr. Saulo Renee was consulted for further evaluation and treatment recommendations. The patient was seen in follow-up today 11/04/2021 at the bedside on the cardiac stepdown unit. Currently sitting up in bed, is awake, alert and oriented 3 and is in no acute apparent distress. Denies any complaints of shortness of breath this morning and reports that his pain to his upper portion of the sternum is much improved today. A 2-D echocardiogram was completed yesterday with results pending. He remains afebrile last 24 hours. Remote telemetry showing normal sinus rhythm heart rate 63 BPM. Oxygen saturation are 98% on room air. The patient reports she has been up ambulating in his room without difficulty. Discharge instructions for post cardiac surgery have been reviewed and discussed with the patient. Reinforced the importance of no lifting, pushing or pulling anything greater than 10 pounds for 12 full weeks. Also reinforced the importance of using his heart hugger diligently. Objective - Vital Signs Vital signs: Vital Signs Temp 97.6 F 11/04/21 08:08 Pulse 63 11/04/21 08:08 Resp 18 11/04/21 08:08 BP 110/70 11/04/21 08:08 Pulse Ox 98 11/04/21 08:08 Intake & Output 11/03/21 11/04/21 11/04/21 18:59 06:59 18:59 Intake Total 1197 370 Balance 1197 370 Weight 127.006 kg 120.2 kg Intake: IV 10 Invasive Line 1 10 Intake, IV Titration 0 Amount Heparin Sod,Pork in 0.45% 0 NaCl 25,000 unit In 0.45 % NaCl 1 250ml.bag @ 7. 874 UNITS/KG/HR 10 mls/hr IV .Q24H [facility] Rx#: [id number] Oral 1197 360 Other: Voiding Method Toilet # Voids 2 - Exam CONSTITUTIONAL: Sitting up up in bed on the cardiac stepdown unit, appears comfortable, cooperative, no apparent acute distress. HEENT: Neck is supple, no JVD, no lymphadenopathy. Mucous membranes are pink and moist. Poor dentition. Conjunctiva normal. RESPIRATORY: Lungs sounds essentially clear throughout. Respirations are symmetrical and nonlabored. Currently on room air with oxygen saturations 98%. CARDIOVASCULAR: Regular rhythm and rate. S1 and S2 present, negative for S3, gallop or murmur. Occasional clicking felt to the proximal portion of his sternum with coughing. Palpable peripheral pulses bilaterally, No calf pain or tenderness noted. Heart hugger in place with patient demonstrating appropriate use. Knee-high RHIANNON hose in place to his bilateral lower extremities. GASTROINTESTINAL: Abdomen soft, nontender, nondistended. Active bowel sounds present 4 quadrants. No organomegaly appreciated. No guarding or rigidity. GENITOURINARY: Voiding clear maco urine. INTEGUMENTARY: Skin is warm and dry with no evidence of clubbing or cyanosis. Midline sternal incision clean dry and well approximated, no redness or drainage. Left lower extremity EVH sites well approximated without redness or drainage. Left arm radial artery harvest sites clean, dry and approximated. No drainage or redness is present. NEUROLOGIC: Cranial nerves II through XII intact. No focal deficits. MUSKULOSKELETAL: Able to move all extremities, strength equal bilaterally. PSYCHIATRIC: Alert and oriented to person place and time, appropriate affect, intact judgment and insight. - Allied health notes Allied health notes reviewed: nursing - Labs CBC & Chem 7: 11/03/21 01:57 11/03/21 01:57 Assessment and Plan Assessment: 1. Chest wall discomfort, likely due to his slipping on ice on 10/31/2021 as he does have some clicking and discomfort to his proximal sternum with coughing 2. History of coronary artery disease, with previous stenting 5 most recently in 2008, status post 4 vessel coronary artery bypass grafting surgery on 10/07/2021 3. History of previous myocardial infarction 4. Preserved left ventricular function with an ejection fraction of 55-60% 5. History of hypertension 4. Hyperlipidemia 5. Qse-gfqqeva-afpwvrzlb diabetes mellitus with a recent hemoglobin A1c of 6.3% 6. Morbid obesity with a BMI of 40.2 kg/m 7. Chronic kidney disease stage III 8. Obstructive sleep apnea currently not using CPAP 9. History of anemia 10. History of gout 11. History of GERD 12. History of tobacco dependence with recent smoking cessation and a recent preoperative FEV1 62% of predicted value 13. History of postoperative atrial fibrillation a known common occurrence after cardiac surgery, and currently remote telemetry showing sinus bradycardia 14. Family history of premature coronary artery disease with both parents d iagnosed before the age of 60 15. Vaccinated and boosted against COVID-19 Plan: 1. Reinforced the importance of following the post cardiac surgery discharge instructions, including no lifting, pushing or pulling anything greater than 10 pounds or jug of milk for 12 full weeks. Continue to use his heart hugger with deep breathing and coughing. 2. Pain control per current when necessary orders. 3. Per the cardiothoracic surgery standpoint the patient can be discharged home when okay with primary care service and other consultants. 4. Increase activity as tolerated. 5. Follow-up with Dr. Renee on an outpatient basis as scheduled. 6. More recommendations to follow based on patient's clinical care. Time with Patient: Greater than 30
--- NOTE | 2021-11-04 10:45 | ECHOF ---
Referral Reason:Post op CABG, assess LV function. MEASUREMENTS -------- HEIGHT: 180.3 cm WEIGHT: 127.0 kg BP: IVSd: 1.5 cm (0.6 - 1.1) LVIDd: 2.6 cm (3.9 - 5.3) LVPWd: 1.6 cm (0.6 - 1.1) IVSs: 1.9 cm LVIDs: 2.0 cm LVPWs: 2.0 cm RAP: 5.00 mmHg RVSP: 14.10 mmHg FINDINGS -------- This was a technically difficult study with suboptimal views. Limited Study The left ventricular size is normal. There is severe concentric left ventricular hypertrophy. Ove rall left ventricular systolic function is normal with, an EF between 55 - 60 %. Lumason used There is no pericardial effusion. CONCLUSIONS -------- 1. The left ventricular size is normal. 2. There is severe concentric left ventricular hypertrophy. 3. Overall left ventricular systolic function is normal with, an EF between 55 - 60 %. 4. There is no pericardial effusion. 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
[2021-11-04 11:50] VITALS: BP 112/72; PULSE 58; TEMP 97.3
--- NOTE | 2021-11-04 13:49 | P.PN ---
Subjective Patient is a pleasant 51-year-old male with history of coronary artery disease with recent 4 vessel CABG on 10/07/2021, post operative atrial fibrillation, prior myocardial infarction and stenting in 2008, hypertension, hyperlipidemia, diabetes mellitus, COPD, obstructive sleep apnea, anemia, tobacco abuse. He follows with Dr. Bello. We have been consulted forc chest pain. Patient presents to the emergency department with complaints of intermittent upper chest "popping" sensation with movement of his chest and arms since 09/30/21. He sates on 09/30/21, he had an episode of slipping on the ice, he did not fall, but states he over used his arms and felt a popping sensation in his upper chest. He states this has been happening intermittently for a month. He denies any chest pain, shortness of breath, nausea, diaphoresis, lightheadedness, dizziness, syncope or near syncope. He denies any fever, cough, chills. Patient recently admitted in September 2021, for chest pain and therefore underwent stress testing which was abnormal. He was transferred from [facility] and had heart catheterization which showed multivessel disease and therefore CABG workup was recommended. Echo performed 10/04/2021 revealed EF 55-60%, mild mitral regurgitation. 10/07/2021 Patient underwent 4 vessel CABG (HONG to LAD, left radial to ramus intermedius, SVG to OM 2, and SVG to PDA). Postoperative complications included H fibrillation therefore he was discharged on amiodarone. Patient recently saw Dr. Bello in the office on 10/21/2021 and his amiodarone was decreased to 200 mg daily. 11/04/2021: Patient seen and examined at bedside, no acute distress. Denies any shortness of breath. Continues to have some pain in his upper chest near sternum but has improved. Vital signs are stable. Limited echo was performed that showed an EF 5560 percent, no pericardial effusion. PHYSICAL EXAMINATION Vital signs reviewed. CONSTITUTIONAL: No apparent distress. HEENT: Neck Supple. No JVD. CHEST EXAMINATION: Lungs are clear to auscultation. Incision across anterior chest wall, well approximated no redness, swelling HEART EXAMINATION: Regular rate and rhythm. S1, S2 heard. No murmurs, gallops or rub. ABDOMEN: Soft, nontender. Positive bowel sounds. EXTREMITIES: 2+ peripheral pulses, no lower extremity edema and no calf tendern ess. NEUROLOGIC EXAMINATION: Patient is awake, alert and oriented x3. ASSESSMENT Chest pain, atypical, appears to be musculoskeletal in nature Elevated troponin, likely related to patient's recent bypass, not indicative of acute coronary syndrome Multivessel coronary artery disease status post four-vessel CABG on 10/07/2021 Postoperative atrial fibrillation after CABG Hypertension Hyperlipidemia Diabetes mellitus type 2 Tobacco abuse COPD CKD PLAN: From a cardiology perspective, patient's chest pain appears noncardiac in nature, appears likely musculoskeletal. We will continue patient on his home cardiac medications. Patient may be discharged from a cardiology perspective. Follow up with Dr. Bello in the outpatient setting Nurse practitioner note has been reviewed by physician. Signing provider agrees with the documented findings, assessment, and plan of care. Objective - Vital Signs Vital signs: Vital Signs Temp 97.3 F L 11/04/21 11:47 Pulse 58 L 11/04/21 11:47 Resp 18 11/04/21 11:47 BP 112/72 11/04/21 11:47 Pulse Ox 96 11/04/21 11:47 Intake & Output 11/03/21 11/04/21 11/04/21 18:59 06:59 18:59 Intake Total 1197 670 Balance 1197 670 Weight 127.006 kg 120.2 kg Intake: IV 10 Invasive Line 1 10 Intake, IV Titration 0 Amount Heparin Sod,Pork in 0.45% 0 NaCl 25,000 unit In 0.45 % NaCl 1 250ml.bag @ 7. 874 UNITS/KG/HR 10 mls/hr IV .Q24H [facility] Rx#: [id number] Oral 1197 660 Other: Voiding Method Toilet # Voids 2 - Labs CBC & Chem 7: 11/03/21 01:57 11/03/21 01:57
--- NOTE | 2021-11-04 19:04 | DS ---
DISCHARGE SUMMARY CHIEF COMPLAINT: Chest pain. HISTORY OF PRESENT ILLNESS AND PHYSICAL EXAMINATION: Details of this man's history and physical can be found in the initial workup. LABORATORY STUDIES: While he was in the hospital he had laboratory studies, details of which can be found in the laboratory section of his chart. COURSE IN THE HOSPITAL: After admission he was placed on bedrest, started intravenous fluids, and he had serial EKGs and enzymes. Troponins were up twice. He was seen by Cardiology. Echocardiogram was unremarkable with a good ejection fraction. He was doing well and it was felt that he could be discharged on November 04. He will go home on his usual activity, a regular diet and his usual medications, and he will follow up with Cardiology as well as with me in several days. FINAL DIAGNOSIS: 1. Chest pain. 2. Coronary artery disease, status post previous myocardial infarction with stenting and recent CABG. 3. Hypertension. 4. Type 2 diabetes. 5. Nicotine abuse. OPERATIONS: None. CONSULTATION: Cardiology. He is improved. MMODL / IJN: [id number] /
--- NOTE | 2021-11-07 15:40 | CONS ---
CONSULTATION Date of Service: 11/03/21 I have seen, examined, and agree with the midlevel's findings. Time spent with patient greater than 30 minutes. DMITRI / NANCIE: [id number] / -01
== END 2021-11-04 16:20 | disposition home or self-care (01) ==
LOC: EC 16:27 → 3SCARD 20:17 → INTOOBSV 20:17 → 3SCARD 22:18
PROVIDERS: ADMIT Family Medicine; ATTEND Family Medicine
DX: R07.89 Other chest pain (principal); R07.2 Precordial pain; I25.10 Atherosclerotic heart disease of native coronary artery without angina pectoris; I25.2 Old myocardial infarction; Z95.5 Presence of coronary angioplasty implant and graft; Z95.1 Presence of aortocoronary bypass graft; I13.0 Hypertensive heart and chronic kidney disease with heart failure and stage 1 through stage 4 chronic kidney disease, or unspecified chronic kidney disease; N18.30 Chronic kidney disease, stage 3 unspecified; I50.9 Heart failure, unspecified; E11.22 Type 2 diabetes mellitus with diabetic chronic kidney disease; K21.9 Gastro-esophageal reflux disease without esophagitis; J44.9 Chronic obstructive pulmonary disease, unspecified; E78.5 Hyperlipidemia, unspecified; R77.8 Other specified abnormalities of plasma proteins; R42 Dizziness and giddiness; R00.1 Bradycardia, unspecified; R06.02 Shortness of breath; G47.33 Obstructive sleep apnea (adult) (pediatric); D64.9 Anemia, unspecified; I48.0 Paroxysmal atrial fibrillation; E66.01 Morbid (severe) obesity due to excess calories; Z68.41 Body mass index [BMI] 40.0-44.9, adult; M10.9 Gout, unspecified; F90.9 Attention-deficit hyperactivity disorder, unspecified type; F43.10 Post-traumatic stress disorder, unspecified; F31.9 Bipolar disorder, unspecified; F41.9 Anxiety disorder, unspecified; Z20.822 Contact with and (suspected) exposure to COVID-19; Z71.9 Counseling, unspecified; W18.49XA Other slipping, tripping and stumbling without falling, initial encounter; Z87.891 Personal history of nicotine dependence; Z88.0 Allergy status to penicillin; Z88.2 Allergy status to sulfonamides; Z79.899 Other long term (current) drug therapy; Z79.02 Long term (current) use of antithrombotics/antiplatelets; Z79.84 Long term (current) use of oral hypoglycemic drugs; Z82.49 Family history of ischemic heart disease and other diseases of the circulatory system; Z80.8 Family history of malignant neoplasm of other organs or systems; Z83.3 Family history of diabetes mellitus; Z80.0 Family history of malignant neoplasm of digestive organs; Z83.79 Family history of other diseases of the digestive system
CPT/HCPCS: 96366 ×2; 96376; 96365; 96375; 99285; 36415; 93005; 80053 ×2; 83735 ×2; 84484 ×2; 85025 ×2; 85610 ×2; 85730 ×2; 87635; 71046; G0378 ×2; C8924; J2270; J0696; J1644 ×2; J1885; Q9950; 93308

== ENCOUNTER 2021-11-20 08:13 | Inpatient (IN) | payer OTHER ==
--- NOTE | 2021-11-20 08:54 | ED ---
SOB HPI - General Chief Complaint: Shortness of Breath Stated Complaint: SOB, pneumonia, vomiting Source: patient Mode of arrival: ambulatory Limitations: no limitations - History of Present Illness Initial Comments: Patient is a 51-year-old male with history of A. fib, coronary artery disease status post CABG last month, hypertension, hyperlipidemia who presents emergency Department with reported shortness of breath and cough. Patient states that he's had increased exertional dyspnea, body chills, nausea and vomiting. He went into [facility] last night and was diagnosed with pneumonia. He was started on azithromycin. He went to roll picker the prescription today and states that he continued to feel bad. He denies any chest pain. Has mild discomfort of his chest wall which is chronic for him since his surgery. He attempted to take his medications this morning and had vomiting. States he is unable to hold down any food. He denies any worsening lower extremity edema. Patient seen in our hospital 10 days ago and was negative for PE. He has been taking his medications as directed. No other alleviating, Perceptin or modifying factors - Related Data Home Medications Medication Instructions Recorded Confirmed Nitroglycerin Sl Tabs [Nitrostat] 0.4 mg SL Q5M PRN 11/02/21 11/10/21 Amiodarone [Cordarone] 200 mg PO DAILY 11/03/21 11/10/21 Aspirin EC [Ecotrin Low Dose] 81 mg PO DAILY 11/10/21 11/10/21 Previous Rx's Medication Instructions Recorded Acetaminophen Tab [Tylenol] 650 mg PO Q4HR PRN tab 10/14/21 Ascorbic Acid [Vitamin C] 500 mg PO BID-W/MEALS #60 tab 10/14/21 Atorvastatin [Lipitor] 80 mg PO HS #30 tab 10/14/21 Clopidogrel [Plavix] 75 mg PO DAILY #30 tab 10/14/21 Ferrous Sulfate [Iron (65 MG 325 mg PO BID-W/MEALS #60 tab 10/14/21 Elemental)] Furosemide [Lasix] 40 mg PO DAILY #30 tablet 10/14/21 Metoprolol Tartrate [Lopressor] 100 mg PO BID #120 tab 10/14/21 Potassium Chloride ER [K-Dur 10] 10 meq PO DAILY #30 tab 10/14/21 Sertraline [Zoloft] 50 mg PO DAILY #30 tab 10/14/21 Sodium Bicarbonate Tab 650 mg PO DAILY #30 tab 10/14/21 amLODIPine [Norvasc] 5 mg PO DAILY #30 tab 10/14/21 glipiZIDE [Glucotrol] 10 mg PO DAILY #60 tab 10/14/21 Allergies Allergy/AdvReac Type Severity Reaction Status Date / Time Penicillins Allergy Swelling Verified 11/20/21 08:21 Sulfa (Sulfonamide Allergy Swelling Verified 11/20/21 08:21 Antibiotics) Review of Systems ROS Statement: Those systems with pertinent positive or pertinent negative responses have been documented in the HPI. ROS Other: All systems not noted in ROS Statement are negative. Past Medical History Past Medical History: Atrial Fibrillation, Asthma, Coronary Artery Disease (CAD), Chest Pain / Angina, Heart Failure, Diabetes Mellitus, GERD/Reflux, Hyperlipidemia, Hypertension, Myocardial Infarction ([place]), Renal Disease, Sleep Apnea/CPAP/BIPAP Additional Past Medical History / Comment(s): Morbid obesity Last Myocardial Infarction Date:: 2008 History of Any Multi-Drug Resistant Organisms: None Reported Past Surgical History: Adenoidectomy, Coronary Bypass/CABG, Heart Catheterization With Stent, Tonsillectomy Additional Past Surgical History / Comment(s): cardiac stents x 5, quad bipass open heart 10/07/2021 Past Anesthesia/Blood Transfusion Reactions: Postoperative Nausea & Vomiting (PONV) Date of Last Stent Placement:: 2008 Past Psychological History: ADD/ADHD, Anxiety, Bipolar, Depression, PTSD Smoking Status: Former smoker Past Alcohol Use History: None Reported Past Drug Use History: None Reported - Past Family History Father Family Medical History: Cancer, Coronary Artery Disease (CAD), Myocardial Infarction ([place]) Additional Family Medical History / Comment(s): at age 68 from mesothelioma, diagnosis of heart disease age of 60 Mother Family Medical History: Cancer, Coronary Artery Disease (CAD), Diabetes Jessica itus, Liver Disease, Myocardial Infarction ([place]) Additional Family Medical History / Comment(s): from liver cancer, diagnosed with heart disease before the age of 60 General Exam Limitations: no limitations Course Vital Signs 11/20/21 11/20/21 11/20/21 08:18 09:46 11:17 Temperature 97.7 F Pulse Rate 64 60 60 Respiratory 18 18 17 Rate Blood Pressure 147/79 126/81 138/88 O2 Sat by Pulse 98 95 97 Oximetry - Reevaluation(s) Reevaluation #1: 11/20/21 12:03 Still awaiting callback from Dr. Hansen Medical Decision Making - Medical Decision Making Upon arrival patient placed into room 6. There are history of physical exam is performed. IV access established laboratory studies were conducted. Creatinine 1.9 which is around the patient's baseline. Troponin 0.046. Chest x-ray does demonstrate bibasilar infiltrates. Blood cultures, antibiotics ordered. Pat ient given a dose of Rocephin and azithromycin. Patient requesting admission as he is unable to hold down any oral medications here spoke with Dr. Hansen who agreed to admit the patient. - Lab Data Result diagrams: 11/20/21 09:01 11/20/21 09:01 Lab Results 11/20/21 11/20/21 11/20/21 Range/Units 09:01 09:01 09:01 WBC 7.2 (3.8-10.6) k/uL RBC 3.53 L (4.30-5.90) m/uL Hgb 10.5 L (13.0-17.5) gm/dL Hct 33.1 L (39.0-53.0) % MCV 93.9 (80.0-100.0) fL MCH 29.8 (25.0-35.0) pg MCHC 31.8 (31.0-37.0) g/dL RDW 15.5 (11.5-15.5) % Plt Count 210 (150-450) k/uL MPV 7.4 Neutrophils % 74 % Lymphocytes % 16 % Monocytes % 5 % Eosinophils % 4 % Basophils % 1 % Neutrophils # 5.3 (1.3-7.7) k/uL Lymphocytes # 1.1 (1.0-4.8) k/uL Monocytes # 0.3 (0-1.0) k/uL Eosinophils # 0.3 (0-0.7) k/uL Basophils # 0.1 (0-0.2) k/uL Hypochromasia Marked PT 10.7 (9.0-12.0) sec INR 1.0 (<1.2) APTT 25.0 (22.0-30.0) sec Sodium 140 (137-145) mmol/L Potassium 4.5 (3.5-5.1) mmol/L Chloride 110 H (98-107) mmol/L Carbon Dioxide 23 (22-30) mmol/L Anion Gap 7 mmol/L BUN 42 H (9-20) mg/dL Creatinine 1.93 H (0.66-1.25) mg/dL Est GFR (CKD-EPI)AfAm 45 (>60 ml/min/1.73 sqM) Est GFR (CKD-EPI)NonAf 39 (>60 ml/min/1.73 sqM) Glucose 222 H (74-99) mg/dL Plasma Lactic Acid Mak (0.7-2.0) mmol/L Calcium 8.6 (8.4-10.2) mg/dL Magnesium 2.0 (1.6-2.3) mg/dL Total Bilirubin 0.5 (0.2-1.3) mg/dL AST 43 (17-59) U/L ALT 40 (4-49) U/L Alkaline Phosphatase 87 (38-126) U/L Troponin I (0.000-0.034) ng/mL NT-Pro-B Natriuret Pep pg/mL Total Protein 6.6 (6.3-8.2) g/dL Albumin 3.6 (3.5-5.0) g/dL Coronavirus (PCR) (Not Detectd) 11/20/21 11/20/21 11/20/21 Range/Units 09:01 09:01 09:01 WBC (3.8-10.6) k/uL RBC (4.30-5.90) m/uL Hgb (13.0-17.5) gm/dL Hct (39.0-53.0) % MCV (80.0-100.0) fL MCH (25.0-35.0) pg MCHC (31.0-37.0) g/dL RDW (11.5-15.5) % Plt Count (150-450) k/uL MPV Neutrophils % % Lymphocytes % % Monocytes % % Eosinophils % % Basophils % % Neutrophils # (1.3-7.7) k/uL Lymphocytes # (1.0-4.8) k/uL Monocytes # (0-1.0) k/uL Eosinophils # (0-0.7) k/uL Basophils # (0-0.2) k/uL Hypochromasia PT (9.0-12.0) sec INR (<1.2) APTT (22.0-30.0) sec Sodium (137-145) mmol/L Potassium (3.5-5.1) mmol/L Chloride (98-107) mmol/L Carbon Dioxide (22-30) mmol/L Anion Gap mmol/L BUN (9-20) mg/dL Creatinine (0.66-1.25) mg/dL Est GFR (CKD-EPI)AfAm (>60 ml/min/1.73 sqM) Est GFR (CKD-EPI)NonAf (>60 ml/min/1.73 sqM) Glucose (74-99) mg/dL Plasma Lactic Acid Mak 1.3 (0.7-2.0) mmol/L Calcium (8.4-10.2) mg/dL Magnesium (1.6-2.3) mg/dL Total Bilirubin (0.2-1.3) mg/dL AST (17-59) U/L ALT (4-49) U/L Alkaline Phosphatase (38-126) U/L Troponin I 0.046 H* (0.000-0.034) ng/mL NT-Pro-B Natriuret Pep 4370 pg/mL Total Protein (6.3-8.2) g/dL Albumin (3.5-5.0) g/dL Coronavirus (PCR) (Not Detectd) 11/20/21 Range/Units 10:27 WBC (3.8-10.6) k/uL RBC (4.30-5.90) m/uL Hgb (13.0-17.5) gm/dL Hct (39.0-53.0) % MCV (80.0-100.0) fL MCH (25.0-35.0) pg MCHC (31.0-37.0) g/dL RDW (11.5-15.5) % Plt Count (150-450) k/uL MPV Neutrophils % % Lymphocytes % % Monocytes % % Eosinophils % % Basophils % % Neutrophils # (1.3-7.7) k/uL Lymphocytes # (1.0-4.8) k/uL Monocytes # (0-1.0) k/uL Eosinophils # (0-0.7) k/uL Basophils # (0-0.2) k/uL Hypochromasia PT (9.0-12.0) sec INR (<1.2) APTT (22.0-30.0) sec Sodium (137-145) mmol/L Potassium (3.5-5.1) mmol/L Chloride (98-107) mmol/L Carbon Dioxide (22-30) mmol/L Anion Gap mmol/L BUN (9-20) mg/dL Creatinine (0.66-1.25) mg/dL Est GFR (CKD-EPI)AfAm (>60 ml/min/1.73 sqM) Est GFR (CKD-EPI)NonAf (>60 ml/min/1.73 sqM) Glucose (74-99) mg/dL Plasma Lactic Acid Mak (0.7-2.0) mmol/L Calcium (8.4-10.2) mg/dL Magnesium (1.6-2.3) mg/dL Total Bilirubin (0.2-1.3) mg/dL AST (17-59) U/L ALT (4-49) U/L Alkaline Phosphatase (38-126) U/L Troponin I (0.000-0.034) ng/mL NT-Pro-B Natriuret Pep pg/mL Total Protein (6.3-8.2) g/dL Albumin (3.5-5.0) g/dL Coronavirus (PCR) Not Detected (Not Detectd) - EKG Data EKG Comments: EKG demonstrates sinus rhythm with a rate of 61. NC interval 193. QRS 112. QTC of 421. Significant baseline artifact no acute ST segment elevations Disposition Clinical Impression: Triple vessel coronary artery disease, CKD (chronic kidney disease), Nausea and vomiting, HCAP (healthcare-associated pneumonia) Disposition: ADMITTED IP TO THIS [facility] Condition: Stable Is patient prescribed a controlled substance at d/c from ED?: No Referrals: Edwin Hansen MD [Primary Care Provider] - 1-2 days Decision to Admit Reason: Admit from EC Decision Date: 11/20/21 Decision Time: 12:03
[2021-11-20 09:21] LABS: Basophils # (A) 0.1 k/uL (0-0.2); Basophils % (A) 1 %; Eosinophils # (A) 0.3 k/uL (0-0.7); Eosinophils % (A) 4 %; HCT 33.1 % (39.0-53.0); HGB 10.5 gm/dL (13.0-17.5); Hypochromasia Marked; Lymphocytes # (A) 1.1 k/uL (1.0-4.8); Lymphocytes % (A) 16 %; MCH 29.8 pg (25.0-35.0); MCHC 31.8 g/dL (31.0-37.0); MCV 93.9 fL (80.0-100.0); Mean Platelet Volume 7.4; Monocytes # (A) 0.3 k/uL (0-1.0); Monocytes % (A) 5 %; Neutrophils # (A) 5.3 k/uL (1.3-7.7); Neutrophils % (A) 74 %; Platelet Count 210 k/uL (150-450); RBC 3.53 m/uL (4.30-5.90); RDW 15.5 % (11.5-15.5); WBC 7.2 k/uL (3.8-10.6)
--- NOTE | 2021-11-20 09:27 | XR ---
EXAMINATION TYPE: XR chest 2V DATE OF EXAM: 11/20/2021 COMPARISON: 11/02/2021 HISTORY: 51 year-old male shortness of breath, difficulty breathing, chest pain TECHNIQUE: PA and lateral views FINDINGS: Median sternotomy wires as well as plate and screw fixation. Post-CABG clips in the mediastinum. Hear t mildly enlarged. Some patchy lower lung opacities are present. No pleural effusion. IMPRESSION: 1. Mild cardiomegaly. 2. Patchy bibasilar areas of atelectasis versus infiltrates. Clinically correlate.
[2021-11-20 09:32] LABS: Albumin 3.6 g/dL (3.5-5.0); Calcium 8.6 mg/dL (8.4-10.2); Potassium 4.5 mmol/L (3.5-5.1); Total Bilirubin 0.5 mg/dL (0.2-1.3); Total Protein 6.6 g/dL (6.3-8.2)
[2021-11-20 09:42] LABS: Prothrombin Time 10.7 sec (9.0-12.0)
[2021-11-20] MEDS ORDERED: ONDANSETRON 4 MG/2 ML VIAL IVP STA (10:24)
[2021-11-20] MEDS ORDERED: cefTRIAXone IN SWFI 1,000 MG/10 ML SYRINGE IVP STA (11:36)
[2021-11-20] MEDS ORDERED: IPRATROPIUM-ALBUTEROL 3 ML NEB INHALATION STA (11:36)
[2021-11-20] MEDS ORDERED: PNEUMONIA PROTOCOL UTILIZED 1 EACH MISC PO PRN (11:36)
[2021-11-20] MEDS ORDERED: ACETAMINOPHEN TAB 325 MG TAB PO PRN ×2 (11:36→12:47)
[2021-11-20] MEDS ORDERED: AZITHROMYCIN 500 MG in SODIUM CHLORIDE 0.9% 250 ML IVPB STA (11:37)
[2021-11-20] MEDS ORDERED: NALOXONE 0.4 MG/ML 1 ML VIAL IV PRN (12:03)
[2021-11-20] MEDS: SODIUM BICARBONATE TAB 650 MG TAB PO SCH (13:13)
[2021-11-20] MEDS: SERTRALINE 50 MG TAB PO SCH (13:13)
[2021-11-20] MEDS: POTASSIUM CHLORIDE ER 10 MEQ TAB.ER.PRT PO SCH (13:13)
[2021-11-20] MEDS: CLOPIDOGREL 75 MG TAB PO SCH (13:13)
[2021-11-20] MEDS: amLODIPine 5 MG TAB PO SCH (13:13)
[2021-11-20] MEDS: AMIODARONE 200 MG TAB PO SCH (13:13)
[2021-11-20] MEDS: METOPROLOL TARTRATE 50 MG TAB PO SCH ×2 (13:14→23:59)
[2021-11-20] MEDS: FERROUS SULFATE 325 MG TAB PO SCH (16:15)
[2021-11-20] MEDS: ASCORBIC ACID 500 MG TAB PO SCH (16:15)
[2021-11-20 16:37] LABS: Glucose,Whole Blood 113 mg/dL (75-99)
[2021-11-20 19:57] LABS: Glucose,Whole Blood 121 mg/dL (75-99)
[2021-11-20] MEDS: ATORVASTATIN 80 MG TAB PO SCH (21:26)
[2021-11-21 06:10] LABS: Glucose,Whole Blood 114 mg/dL (75-99)
[2021-11-21] MEDS: FERROUS SULFATE 325 MG TAB PO SCH ×2 (06:25→16:38)
[2021-11-21] MEDS: ASCORBIC ACID 500 MG TAB PO SCH ×2 (06:25→16:38)
[2021-11-21 09:16] LABS: Basophils % (A) 1 %; Calcium 8.5 mg/dL (8.4-10.2); Eosinophils # (A) 0.2 k/uL (0-0.7); Eosinophils % (A) 4 %; HCT 33.1 % (39.0-53.0); HGB 10.2 gm/dL (13.0-17.5); Hypochromasia Marked; Lymphocytes % (A) 14 %; MCH 29.4 pg (25.0-35.0); MCHC 30.8 g/dL (31.0-37.0); MCV 95.3 fL (80.0-100.0); Mean Platelet Volume 7.4; Monocytes # (A) 0.3 k/uL (0-1.0); Monocytes % (A) 5 %; Neutrophils % (A) 75 %; Platelet Count 179 k/uL (150-450); Potassium 4.9 mmol/L (3.5-5.1); RBC 3.47 m/uL (4.30-5.90); RDW 15.8 % (11.5-15.5); WBC 6.7 k/uL (3.8-10.6)
[2021-11-21] MEDS: ASPIRIN 81 MG PO SCH (09:37)
[2021-11-21] MEDS: SERTRALINE 50 MG TAB PO SCH (09:37)
[2021-11-21] MEDS: amLODIPine 5 MG TAB PO SCH (09:37)
[2021-11-21] MEDS: CLOPIDOGREL 75 MG TAB PO SCH (09:37)
[2021-11-21] MEDS: SODIUM BICARBONATE TAB 650 MG TAB PO SCH (09:37)
[2021-11-21] MEDS: FUROSEMIDE 40 MG TAB PO SCH (09:37)
[2021-11-21] MEDS: POTASSIUM CHLORIDE ER 10 MEQ TAB.ER.PRT PO SCH (09:37)
[2021-11-21] MEDS: AMIODARONE 200 MG TAB PO SCH (09:37)
[2021-11-21] MEDS: METOPROLOL TARTRATE 50 MG TAB PO SCH ×2 (09:37→21:50)
[2021-11-21 11:37] LABS: Glucose,Whole Blood 125 mg/dL (75-99)
[2021-11-21 16:17] LABS: Glucose,Whole Blood 154 mg/dL (75-99)
[2021-11-21] MEDS: LEVOFLOXACIN 750 MG TAB PO SCH (16:38)
[2021-11-21] MEDS: IPRATROPIUM-ALBUTEROL 3 ML NEB INHALATION PRN ×2 (16:40→21:09)
--- NOTE | 2021-11-21 17:48 | HP ---
HISTORY AND PHYSICAL CHIEF COMPLAINT: Shortness of breath. HISTORY OF PRESENT ILLNESS: This is another admission for this 51-year-old white male. He underwent a CABG on November 02. He came into the emergency room because he was experiencing increased shortness of breath. He was also nauseated and vomiting. In the emergency room he was found to have pneumonitis. He was admitted. He denied any chest pain, fever, chills, hemoptysis, etc. REVIEW OF SYSTEMS: Otherwise unremarkable. He has had no neurologic problems, hematemesis, melena, hematochezia, jaundice, dysuria, frequency, urgency, etc. Past medical history, family history, and personal and social histories are all otherwise unremarkable and unchanged from his recent admissions. He was seen in the office on November 19 as a new patient. ALLERGIES: PENICILLIN AND SULFA. MEDICATIONS: Medications have been: 1. Metoprolol tartrate 50 mg two tablets twice a day. 2. Furosemide 40 mg once a day. 3. Glipizide 5 mg two tablets once a day. 4. Ferrous sulfate 325 twice a day. 5. Amlodipine 5 mg once a day. 6. Clopidogrel 75 mg once a day. 7. Sodium bicarb 650 mEq once a day. 8. Zoloft 50 mg once a day. 9. Potassium 10 mEq once a day. 10.Atorvastatin 80 once a day. 11.Aspirin 81 mg. 12.Ascorbic acid 500 mg twice a day. 13.Amiodarone 200 mg once a day. 14.Tylenol. Past history includes history of diabetes and coronary artery disease with hyperlipidemia, depression and alcoholism. He also has kidney disease. Surgical history includes his CABG and he has had tonsillectomy and adenoidectomy. He has had stents placed in the past. He has never smoked, but he has abused alcohol in the past. PHYSICAL EXAMINATION: Blood pressure is 124/84 with a pulse of 88, respirations of 35, and he is afebrile. In general he appears to be overweight and in some mild respiratory distress. Skin color is normal. Skin is warm and dry. Head, ears, eyes, nose, mouth and throat are normal. Carotids could not be assessed. Neck veins similarly could not be evaluated. Chest is fairly clear, but respirations are shallow and there are scattered rales and rhonchi. There is a midline and sternotomy incision which is well healed. Cardiac exam demonstrated sinus tachycardia. The abdomen is protuberant, soft and nontender without any visceromegaly or masses. Bowel sounds are present. Extremities were normal. Neurologically he is intact. He is admitted to the hospital with the diagnoses: 1. Bronchial pneumonia. 2. Rule out pulmonary embolism. 3. Rule out congestive heart failure. 4. Coronary artery disease, status post recent CABG and prior history of stents. 5. Type 2 diabetes mellitus. 6. Obesity. PLAN: 1. Bedrest. 2. IV fluids. 3. IV antibiotics. 4. Serial EKGs and enzymes. 5. B P. 6. D-dimer. 7. Cardiology consult. MMODL / IJN: [id number] /
--- NOTE | 2021-11-21 18:18 | PN ---
PROGRESS NOTE CHIEF COMPLAINT: Respiratory failure, pneumonitis and possible CHF. HISTORY OF PRESENT ILLNESS: This gentleman is doing fairly well, but he is still a little bit short of breath. He has had no fever or chills. He is coughing up some thick, yellowish sputum. PHYSICAL EXAMINATION: He does have scattered rales and rhonchi throughout both lung mackey. Cardiac exam is normal and his vital signs are normal. IMPRESSION: 1. Bronchopneumonia. 2. Chronic obstructive pulmonary disease. 3. Coronary artery disease, status post CABG. 4. Rule out congestive heart failure and/or pulmonary embolus. PLAN: 1. Add updrafts. 2. Consult with Cardiology. 3. Monitor his blood sugars closely. MMODL / IJN: [id number] /
[2021-11-21 20:34] LABS: Glucose,Whole Blood 132 mg/dL (75-99)
[2021-11-21] MEDS: ATORVASTATIN 80 MG TAB PO SCH (21:50)
[2021-11-22 06:27] LABS: Glucose,Whole Blood 118 mg/dL (75-99)
[2021-11-22] MEDS: FERROUS SULFATE 325 MG TAB PO SCH ×2 (07:05→16:31)
[2021-11-22] MEDS: ASCORBIC ACID 500 MG TAB PO SCH ×2 (07:05→16:31)
[2021-11-22] MEDS: IPRATROPIUM-ALBUTEROL 3 ML NEB INHALATION PRN ×3 (09:00→16:24)
[2021-11-22] MEDS: amLODIPine 5 MG TAB PO SCH (09:17)
[2021-11-22] MEDS: AMIODARONE 200 MG TAB PO SCH (09:17)
[2021-11-22] MEDS: SERTRALINE 50 MG TAB PO SCH (09:17)
[2021-11-22] MEDS: ASPIRIN 81 MG PO SCH (09:18)
[2021-11-22] MEDS: SODIUM BICARBONATE TAB 650 MG TAB PO SCH (09:18)
[2021-11-22] MEDS: CLOPIDOGREL 75 MG TAB PO SCH (09:18)
[2021-11-22] MEDS: METOPROLOL TARTRATE 50 MG TAB PO SCH ×3 (09:18→19:56)
[2021-11-22] MEDS: POTASSIUM CHLORIDE ER 10 MEQ TAB.ER.PRT PO SCH (09:18)
[2021-11-22] MEDS: FUROSEMIDE 40 MG TAB PO SCH (09:18)
[2021-11-22 11:51] LABS: Glucose,Whole Blood 151 mg/dL (75-99)
--- NOTE | 2021-11-22 14:52 | CONS ---
CONSULTATION Balwinder Collado is a 51-year-old gentleman, a patient of Dr. Hansen, who underwent aortocoronary bypass surgery on November 02 and came into the emergency room because of increasing nausea, vomiting and feeling weak and tired. He apparently went to [facility]; it was suggested that he had pneumonitis and was given an antibiotic. Chest x-ray here does not suggest any clear-cut pneumonia. He is in sinus rhythm but complains of nausea. However, he has eaten and is able to keep the food down today. He is on amiodarone and that could also be a factor for his nausea. He is resting comfortably without symptoms. He is slightly bradycardic. At the time of my evaluation, he is asymptomatic. This gentleman developed atrial fibrillation post bypass surgery, was placed on amiodarone and discharged home. However, he is in a sinus rhythm and sinus bradycardia at this time. He indicates to me that he felt some nausea, vomiting, and also felt some chills but no fever. PAST MEDICAL HISTORY: 1. CAD with bypass surgery recently. 2. Sleep apnea. 3. Type 2 diabetes. 4. Hypertension. 5. Hyperlipidemia. Review of the previous chart suggests that follows with Dr. Bello, and an echocardiogram was performed on 11/02/2021 which revealed good systolic function. He had a 4-vessel bypass and postoperative atrial fibrillation. He also had stenting and an MS sometime in 2008; details are unavailable. He had a 4-vessel bypass with HONG to LAD, left free radial artery graft to ramus intermedius, vein graft to the obtuse marginal 2 and another vein graft to the PDA. EKG revealed sinus rhythm with mild nonspecific ST-T changes and some baseline artifact. QT is normal. I am recommending that we decrease the metoprolol to 50 mg b.i.d. and discontinue amiodarone altogether. We can increase activity and patient can be discharged today to follow up with Dr. Bello in the office in 2 weeks. On examination, blood pressure is 140/70, pulse rate is 56 per minute. HEENT unremarkable. Fundus was not examined. Neck is supple. There is no JVD. I do not hear a carotid bruit. Heart exam reveals S1, S2 heard normally with a short systolic murmur. Lungs reveal decent air entry. Abdomen is soft. There is no tenderness. Bowel sounds are normal. Lower extremities reveal diminished pulses. Central nervous system is normal. IMPRESSION: 1. Nausea and vomiting. 2. Coronary artery disease with recent bypass surgery. 3. Type 2 diabetes. 4. Hypertension. 5. Hyperlipidemia. RECOMMENDATIONS: I am recommending that we can discontinue amiodarone, increase oral fluids and ambulate the patient. If he has no further symptoms, he can be discharged and follow up with Dr. Bello in 2 weeks. MMCARLOS / YOKON: [id number] /
[2021-11-22 16:25] LABS: Glucose,Whole Blood 212 mg/dL (75-99)
--- NOTE | 2021-11-22 17:40 | PN ---
PROGRESS NOTE CHIEF COMPLAINT: Shortness of breath and CAD. HISTORY OF PRESENT ILLNESS: This gentleman is doing fairly well. Vital signs are normal. He is not having any chest pain. He is still a little bit short of breath. He has significant peripheral edema. His BNP is elevated. It is likely that most of his difficulty is heart failure. He is being followed by Cardiology. PHYSICAL EXAMINATION: Breath sounds are fairly clear. There are only occasional rales posteriorly. Cardiac exam demonstrates slight tachycardia. Abdomen is protuberant and soft. Extremities are normal. IMPRESSION: 1. Shortness of breath. 2. Possible pneumonia. 3. Congestive heart failure. 4. Coronary artery disease. 5. Diabetes with good blood sugars at present. PLAN: Continue to monitor his vital signs and his shortness of breath. His program may need to be increased if he continues to have shortness of breath and evidence of heart failure. MMODL / YOKON: [id number] /
[2021-11-22] MEDS: ATORVASTATIN 80 MG TAB PO SCH (19:56)
[2021-11-22 20:37] LABS: Glucose,Whole Blood 150 mg/dL (75-99)
[2021-11-23 06:31] LABS: Glucose,Whole Blood 140 mg/dL (75-99)
[2021-11-23] MEDS: ASCORBIC ACID 500 MG TAB PO SCH ×2 (07:29→17:23)
[2021-11-23] MEDS: FERROUS SULFATE 325 MG TAB PO SCH ×2 (07:29→17:23)
[2021-11-23] MEDS: IPRATROPIUM-ALBUTEROL 3 ML NEB INHALATION PRN ×2 (08:15→16:18)
[2021-11-23] MEDS: METOPROLOL TARTRATE 50 MG TAB PO SCH ×2 (09:39→19:43)
[2021-11-23] MEDS: amLODIPine 5 MG TAB PO SCH (09:39)
[2021-11-23] MEDS: ASPIRIN 81 MG PO SCH (09:39)
[2021-11-23] MEDS: FUROSEMIDE 40 MG TAB PO SCH (09:39)
[2021-11-23] MEDS: CLOPIDOGREL 75 MG TAB PO SCH (09:39)
[2021-11-23] MEDS: POTASSIUM CHLORIDE ER 10 MEQ TAB.ER.PRT PO SCH (09:39)
[2021-11-23] MEDS: SODIUM BICARBONATE TAB 650 MG TAB PO SCH (09:39)
[2021-11-23] MEDS: SERTRALINE 50 MG TAB PO SCH (09:39)
--- NOTE | 2021-11-23 11:27 | PN ---
PROGRESS NOTE Mr. Collado is in sinus rhythm, resting comfortably. His nausea has improved. He feels better. Heart rate has come up. He is on 50 mg b.i.d. of metoprolol. He is status post bypass surgery, came in with nausea, which has resolved. Vitals are stable. No JVD. S1, S2 heard normally. Short systolic murmur noted. Lungs are clear. Abdomen and lower extremity exam unchanged. Plan is to continue incentive spirometry, pulmonary toilet, increase activity and possible discharge. MMODL / IJN: [id number] /
[2021-11-23 11:54] VITALS: RESP 16
[2021-11-23] MEDS: LEVOFLOXACIN 750 MG TAB PO SCH (11:55)
--- NOTE | 2021-11-23 14:15 | PN ---
PROGRESS NOTE CHIEF COMPLAINT: Nausea, vomiting, dehydration, abdominal pain. HISTORY OF PRESENT ILLNESS: This gentleman is doing well. Breathing has improved. He was seen by Cardiology. He seems to be doing well. PHYSICAL EXAMINATION: His vital signs are normal. Pulse is in the 60s. Chest is clear. Cardiac exam is normal. Abdomen is soft, nontender. IMPRESSION: 1. Nausea and vomiting. 2. Dehydration. 3. Congestive heart failure. 4. Status post recent coronary artery bypass grafting. PLAN: Progress activity and probably discharge tomorrow if he remains stable. MMODL / IJN: [id number] /
[2021-11-23] MEDS: ATORVASTATIN 80 MG TAB PO SCH (19:43)
[2021-11-24] MEDS: ASCORBIC ACID 500 MG TAB PO SCH (06:41)
[2021-11-24] MEDS: FERROUS SULFATE 325 MG TAB PO SCH (06:41)
[2021-11-24] MEDS ORDERED: LOSARTAN 25 MG TAB PO SCH (09:00)
[2021-11-24] MEDS: POTASSIUM CHLORIDE ER 10 MEQ TAB.ER.PRT PO SCH (09:05)
[2021-11-24] MEDS: METOPROLOL TARTRATE 50 MG TAB PO SCH (09:05)
[2021-11-24] MEDS: CLOPIDOGREL 75 MG TAB PO SCH (09:05)
[2021-11-24] MEDS: ASPIRIN 81 MG PO SCH (09:05)
[2021-11-24] MEDS: SERTRALINE 50 MG TAB PO SCH (09:06)
[2021-11-24] MEDS: amLODIPine 5 MG TAB PO SCH (09:06)
[2021-11-24] MEDS: SODIUM BICARBONATE TAB 650 MG TAB PO SCH (09:06)
[2021-11-24] MEDS: FUROSEMIDE 40 MG TAB PO SCH (09:06)
[2021-11-24 10:34] VITALS: TEMP 97.6
[2021-11-24 12:15] VITALS: BP 126/77; PULSE 59
--- NOTE | 2021-11-24 13:43 | P.CRDCN ---
History of Present Illness Consult date: 11/24/21 History of present illness: HISTORY OF PRESENT ILLNESS: This is a 51-year-old male who follows in the office with Dr. Bello. Patient has a history of CAD with CABG x 4 on 10/07/2021, postoperative paroxysmal atrial fibrillation, previous myocardial infarction with stenting in 2008, hypertension, hyperlipidemia, diabetes, COPD, obstructive sleep apnea, and nicotine dependence. Patient is admitted to the hospital secondary to nausea and vomiting which has resolved. Patient denies chest pain or pressure. Denies SOB. Vital signs are stable. PHYSICAL EXAM: VITAL SIGNS: Reviewed. GENERAL: Well-developed in no acute distress. NECK: Supple. No JVD or thyromegaly LUNGS: Respirations even and unlabored. Lungs essentially clear to auscultation bilaterally. HEART: Regular rate and rhythm. S1 and S2 heard. EXTREMITIES: Normal range of motion. No clubbing or cyanosis. Peripheral pulses intact. No lower extremity edema ASSESSMENT: Nausea and vomiting Chronic kidney disease Coronary artery disease with recent CABG x 4 Postoperative paroxysmal atrial fibrillation Previous myocardial infection with stenting 2008 Hypertension Hyperlipidemia Diabetes COPD Objective sleep apnea Nicotine dependence PLAN: Continue current cardiac medications Begin Losartan 25mg daily Patient is stable for discharge home today from a cardiac standpoint Nurse practitioner note has been reviewed by physician. Signing provider agrees with the documented findings, assessment, and plan of care. Past Medical History Past Medical History: Atrial Fibrillation, Asthma, Coronary Artery Disease (CAD), Chest Pain / Angina, Heart Failure, Diabetes Mellitus, GERD/Reflux, Hyperlipidemia, Hypertension, Myocardial Infarction (IN), Renal Disease, Sleep Apnea/CPAP/BIPAP Additional Past Medical History / Comment(s): Morbid obesity Last Myocardial Infarction Date:: 2008 History of Any Multi-Drug Resistant Organisms: MRSA Date of last positivie culture/infection: 10/2020 MDRO Source:: Right eye Past Surgical History: Adenoidectomy, Coronary Bypass/CABG, Heart Catheterization With Stent, Tonsillectomy Additional Past Surgical History / Comment(s): cardiac stents x 5, quad bipass open heart 10/07/2021 Past Anesthesia/Blood Transfusion Reactions: Postoperative Nausea & Vomiting (PONV) Date of Last Stent Placement:: 2008 Past Psychological History: ADD/ADHD, Anxiety, Bipolar, Depression, PTSD Additional Psychological History / Comment(s): Pt resides at [place] [id number] [facility]. 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 He does not like it at [facility], stating he cannot rest/sleep d/t noise and has difficulty with the stairs there. 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 Smoking Status: Former smoker Past Alcohol Use History: None Reported Additional Past Alcohol Use History / Comment(s): Pt started smoking in 1982 ans quit 10/03/21 Past Drug Use History: None Reported - Past Family History Father Family Medical History: Cancer, Coronary Artery Disease (CAD), Myocardial Infarction (IN) Additional Family Medical History / Comment(s): at age 68 from mesothelioma, diagnosis of heart disease age of 60 Mother Family Medical History: Cancer, Coronary Artery Disease (CAD), Diabetes Mellitus, Liver Disease, Myocardial Infarction (IN) Additional Family Medical History / Comment(s): from liver cancer, diagnosed with heart disease before the age of 60 Medications and Allergies Home Medications Medication Instructions Recorded Confirmed Type Acetaminophen Tab [Tylenol] 650 mg PO Q4HR PRN tab 10/14/21 11/20/21 Rx Ascorbic Acid [Vitamin C] 500 mg PO BID-W/MEALS #60 tab 10/14/21 11/20/21 Rx Atorvastatin [Lipitor] 80 mg PO HS #30 tab 10/14/21 11/20/21 Rx Clopidogrel [Plavix] 75 mg PO DAILY #30 tab 10/14/21 11/20/21 Rx Ferrous Sulfate [Iron (65 MG 325 mg PO BID-W/MEALS #60 tab 10/14/21 11/20/21 Rx Elemental)] Furosemide [Lasix] 40 mg PO DAILY #30 tablet 10/14/21 11/20/21 Rx Metoprolol Tartrate [Lopressor] 100 mg PO BID #120 tab 10/14/21 11/20/21 Rx Potassium Chloride ER [K-Dur 10] 10 meq PO DAILY #30 tab 10/14/21 11/20/21 Rx Sertraline [Zoloft] 50 mg PO DAILY #30 tab 10/14/21 11/20/21 Rx Sodium Bicarbonate Tab 650 mg PO DAILY #30 tab 10/14/21 11/20/21 Rx amLODIPine [Norvasc] 5 mg PO DAILY #30 tab 10/14/21 11/20/21 Rx glipiZIDE [Glucotrol] 10 mg PO DAILY #60 tab 10/14/21 11/20/21 Rx Nitroglycerin Sl Tabs [Nitrostat] 0.4 mg SL Q5M PRN 11/02/21 11/20/21 History Aspirin EC [Ecotrin Low Dose] 81 mg PO DAILY 11/10/21 11/20/21 History Levofloxacin [Levaquin] 750 mg PO Q48H #7 tab 11/24/21 Rx Losartan [Cozaar] 25 mg PO DAILY #10 tab 11/24/21 Rx Allergies Allergy/AdvReac Type Severity Reaction Status Date / Time Penicillins Allergy Swelling Verified 11/20/21 12:32 Sulfa (Sulfonamide Allergy Swelling Verified 11/20/21 12:32 Antibiotics) Physical Exam Vitals: Vital Signs Temp Pulse Pulse Resp BP Pulse Ox 11/24/21 12:00 59 L 126/77 96 11/24/21 08:00 97.6 F 60 16 139/75 98 11/24/21 04:00 97.9 F 57 L 16 141/93 96 11/24/21 02:00 60 16 11/23/21 23:48 98.1 F 60 16 136/81 94 L 11/23/21 20:01 96 11/23/21 20:00 98.3 F 59 L 16 159/83 95 11/23/21 16:29 68 16 11/23/21 16:18 65 16 11/23/21 15:46 59 L 16 139/80 97 Intake and Output 11/23/21 11/24/21 11/24/21 22:59 06:59 14:59 Intake Total 240 1080 Balance 240 1080 Intake: Oral 240 1080 Other: Voiding Method Toilet Toilet Toilet # Voids 1 1 Weight 127.5 kg Results 11/21/21 08:17 11/21/21 08:17 Current Medications Generic Name Dose Route Start Last Admin Trade Name Freq PRN Reason Stop Dose Admin Acetaminophen 650 mg 11/20/21 11:36 11/24/21 02:20 Acetaminophen Tab 325 Mg Tab PO 650 mg Q4HR PRN Administration Fever and/ or Pain Albuterol/Ipratropium 3 ml 11/21/21 13:22 11/23/21 16:18 Ipratropium-Albuterol 3 Ml Neb INHALATION 3 ml RT-QID PRN Administration Shortness Of Breath Or Wheezing Amlodipine Besylate 5 mg 11/20/21 13:15 11/24/21 09:06 Amlodipine 5 Mg Tab PO 5 mg DAILY NAYELY Administration Ascorbic Acid 500 mg 11/20/21 17:30 11/24/21 06:41 Ascorbic Acid 500 Mg Tab PO 500 mg BID-W/MEALS NAYELY Administration Aspirin 81 mg 11/21/21 09:00 11/24/21 09:05 Aspirin 81 Mg PO 81 mg DAILY NAYELY Administration Atorvastatin Calcium 80 mg 11/20/21 21:00 11/23/21 19:43 Atorvastatin 80 Mg Tab PO 80 mg HS NAYELY Administration Clopidogrel Bisulfate 75 mg 11/20/21 13:15 11/24/21 09:05 Clopidogrel 75 Mg Tab PO 75 mg DAILY NAYELY Administration Ferrous Sulfate 325 mg 11/20/21 17:30 11/24/21 06:41 Ferrous Sulfate 325 Mg Tab PO 325 mg BID-W/MEALS NAYELY Administration Furosemide 40 mg 11/21/21 09:00 11/24/21 09:06 Furosemide 40 Mg Tab PO 40 mg DAILY NAYELY Administration Levofloxacin 750 mg 11/21/21 14:00 11/23/21 11:55 Levofloxacin 750 Mg Tab PO 750 mg Q48H NAYELY Administration Protocol Losartan Potassium 25 mg 11/24/21 09:00 11/24/21 09:09 Losartan 25 Mg Tab PO 25 mg DAILY NAYELY Administration Metoprolol Tartrate 50 mg 11/22/21 09:30 11/24/21 09:05 Metoprolol Tartrate 50 Mg Tab PO 50 mg BID NAYELY Administration Miscellaneous Information 1 each 11/20/21 11:36 Pneumonia Protocol Utilized 1 Each Misc PO ONCE PRN Per Protocol Naloxone HCl 0.2 mg 11/20/21 12:03 Naloxone 0.4 Mg/Ml 1 Ml Vial IV Q2M PRN Opioid Reversal Potassium Chloride 10 meq 11/20/21 13:15 11/24/21 09:05 Potassium Chloride Er 10 Meq Tab.Er.Prt PO 10 meq DAILY NAYELY Administration Sertraline HCl 50 mg 11/20/21 13:15 11/24/21 09:06 Sertraline 50 Mg Tab PO 50 mg DAILY NAYELY Administration Sodium Bicarbonate 650 mg 11/20/21 13:15 11/24/21 09:06 Sodium Bicarbonate Tab 650 Mg Tab PO 650 mg DAILY NAYELY Administration Intake and Output 11/23/21 11/24/21 11/24/21 22:59 06:59 14:59 Intake Total 240 1080 Balance 240 1080 Intake: Oral 240 1080 Other: Voiding Method Toilet Toilet Toilet # Voids 1 1 Weight 127.5 kg Patient Weight 11/25/21 06:59 Weight 127.5 kg 11/21/21 08:17 11/21/21 08:17
--- NOTE | 2021-11-24 20:38 | DS ---
DISCHARGE SUMMARY CHIEF COMPLAINT: Shortness of breath, nausea and vomiting, recent CABG and possible pneumonia. HISTORY OF PRESENT ILLNESS AND PHYSICAL EXAMINATION: Details of this man's history can be found in the initial workup. LABORATORY STUDIES: While he was in the hospital he had laboratory studies, details of which can be found in the laboratory section of his chart. COURSE IN THE HOSPITAL: After admission he was placed on bedrest, started on intravenous fluids and started on frequent monitoring of his neurologic status, vital signs and respiratory status. It was felt that he had an element of congestive heart failure based on his BNP. It was not felt that he had a significant pneumonitis. He was seen by Cardiology and was doing well. It was felt that he could go home on November 24. He will follow up in the office. FINAL DIAGNOSIS: 1. Shortness of breath. 2. Congestive heart failure. 3. Coronary artery disease, status post recent CABG. 4. Intractable nausea and vomiting. OPERATIONS: None. CONSULTATION: Cardiology. He is improved. MMODL / YOKON: [id number] /
== END 2021-11-24 15:38 | disposition home or self-care (01) | DRG 291 ==
LOC: EC 08:13 → 3SCARD 12:03 → OBSVTOIN 11-22 16:26
PROVIDERS: ADMIT Family Medicine; ATTEND Family Medicine
DX: I13.0 Hypertensive heart and chronic kidney disease with heart failure and stage 1 through stage 4 chronic kidney disease, or unspecified chronic kidney disease (principal); J96.90 Respiratory failure, unspecified, unspecified whether with hypoxia or hypercapnia; Z68.41 Body mass index [BMI] 40.0-44.9, adult; E11.22 Type 2 diabetes mellitus with diabetic chronic kidney disease; E78.5 Hyperlipidemia, unspecified; J44.9 Chronic obstructive pulmonary disease, unspecified; Z20.822 Contact with and (suspected) exposure to COVID-19; I48.0 Paroxysmal atrial fibrillation; I50.9 Heart failure, unspecified; N18.9 Chronic kidney disease, unspecified; R01.1 Cardiac murmur, unspecified; I25.10 Atherosclerotic heart disease of native coronary artery without angina pectoris; E86.0 Dehydration; F17.210 Nicotine dependence, cigarettes, uncomplicated; E66.9 Obesity, unspecified; F31.9 Bipolar disorder, unspecified; F43.10 Post-traumatic stress disorder, unspecified; G47.30 Sleep apnea, unspecified; I25.2 Old myocardial infarction; Z79.02 Long term (current) use of antithrombotics/antiplatelets; Z79.82 Long term (current) use of aspirin; Z79.84 Long term (current) use of oral hypoglycemic drugs; Z79.899 Other long term (current) drug therapy; Z80.0 Family history of malignant neoplasm of digestive organs; Z82.49 Family history of ischemic heart disease and other diseases of the circulatory system; Z83.3 Family history of diabetes mellitus; Z95.1 Presence of aortocoronary bypass graft; Z95.5 Presence of coronary angioplasty implant and graft; Z88.0 Allergy status to penicillin; Z88.2 Allergy status to sulfonamides; R00.1 Bradycardia, unspecified
CPT/HCPCS: 36415; 71046; 80048; 80053; 83605; 83735; 83880; 84484; 85025; 85379; 85610; 85730; 87040; 87070; 87205; 87635; 93005; 94640; 94760; 96374; 99285

== ENCOUNTER 2021-11-28 01:53 | Observation (INO) | payer OTHER ==
[2021-11-28 02:46] LABS: Basophils # (A) 0.1 k/uL (0-0.2); Basophils % (A) 1 %; Eosinophils # (A) 0.2 k/uL (0-0.7); Eosinophils % (A) 3 %; HCT 32.8 % (39.0-53.0); HGB 10.4 gm/dL (13.0-17.5); Hypochromasia Moderate; Lymphocytes # (A) 1.1 k/uL (1.0-4.8); Lymphocytes % (A) 17 %; MCH 28.9 pg (25.0-35.0); MCHC 31.6 g/dL (31.0-37.0); MCV 91.5 fL (80.0-100.0); Mean Platelet Volume 7.4; Monocytes # (A) 0.4 k/uL (0-1.0); Monocytes % (A) 6 %; Neutrophils # (A) 4.9 k/uL (1.3-7.7); Neutrophils % (A) 71 %; Platelet Count 206 k/uL (150-450); RBC 3.59 m/uL (4.30-5.90); RDW 15.1 % (11.5-15.5); WBC 6.8 k/uL (3.8-10.6)
[2021-11-28 02:57] LABS: Albumin 3.3 g/dL (3.5-5.0); Calcium 7.5 mg/dL (8.4-10.2); Total Bilirubin 0.5 mg/dL (0.2-1.3); Total Protein 6.2 g/dL (6.3-8.2)
--- NOTE | 2021-11-28 03:16 | XR ---
EXAMINATION TYPE: XR chest 2V DATE OF EXAM: 11/28/2021 COMPARISON: NONE HISTORY: Chest pain TECHNIQUE: 2 views FINDINGS: There is coarse interstitial density in the mid and lower lung mackey. Heart size is border line enlarged. There is no obvious heart failure. There are sternal wires. There are chest leads. The re is no pleural effusion. IMPRESSION: Bilateral lower lobe interstitial pneumonia which is similar to last exam. No pleural flu id seen to suggest heart failure.
[2021-11-28 03:18] LABS: Prothrombin Time 10.8 sec (9.0-12.0)
[2021-11-28 03:23] LABS: Partial Thromboplastin Time 21.1 sec (22.0-30.0)
[2021-11-28 04:02] LABS: Potassium 4.7 mmol/L (3.5-5.1)
[2021-11-28 04:03] LABS: Magnesium 1.8 mg/dL (1.6-2.3)
[2021-11-28] MEDS ORDERED: NITROGLYCERIN SL TABS 0.4 MG TAB SUBLINGUAL PRN (04:27)
[2021-11-28 06:10] LABS: Glucose,Whole Blood 122 mg/dL (75-99)
--- NOTE | 2021-11-28 07:44 | ED ---
Chest Pain HPI - General Chief Complaint: Shortness of Breath Stated Complaint: SOB Time Seen by Provider: 11/28/21 02:23 Source: patient Mode of arrival: EMS Limitations: physical limitation - History of Present Illness Initial Comments: This patient's 51-year-old man with history of coronary bypass surgery in September of this year. He presents here with complaint that she was awakened from sleep by feeling like he could not catch his breath, palpitations, and upper chest pressure. Again this woke him from sleep. He states that EMS was called and that all of his symptoms then resolved over probably an hour of 15-20 minutes. He states he is feeling much better here. He states he had been feeling essentially at his baseline prior to going to bed. MD Complaint: chest pain -: minutes(s) Onset: during rest, awoke with symptoms Pain Location: substernal Pain Radiation: none Severity: moderate Quality: tightness Consistency: now resolved Improves With: nothing Worsens With: nothing Context: recent surgery Anginal Symptoms: dyspnea Treatments Prior to Arrival: oxygen - Related Data Home Medications Medication Instructions Recorded Confirmed Nitroglycerin Sl Tabs [Nitrostat] 0.4 mg SL Q5M PRN 11/02/21 11/20/21 Aspirin EC [Ecotrin Low Dose] 81 mg PO DAILY 11/10/21 11/20/21 Previous Rx's Medication Instructions Recorded Acetaminophen Tab [Tylenol] 650 mg PO Q4HR PRN tab 10/14/21 Ascorbic Acid [Vitamin C] 500 mg PO BID-W/MEALS #60 tab 10/14/21 Atorvastatin [Lipitor] 80 mg PO HS #30 tab 10/14/21 Clopidogrel [Plavix] 75 mg PO DAILY #30 tab 10/14/21 Ferrous Sulfate [Iron (65 MG 325 mg PO BID-W/MEALS #60 tab 10/14/21 Elemental)] Furosemide [Lasix] 40 mg PO DAILY #30 tablet 10/14/21 Metoprolol Tartrate [Lopressor] 100 mg PO BID #120 tab 10/14/21 Potassium Chloride ER [K-Dur 10] 10 meq PO DAILY #30 tab 10/14/21 Sertraline [Zoloft] 50 mg PO DAILY #30 tab 10/14/21 Sodium Bicarbonate Tab 650 mg PO DAILY #30 tab 10/14/21 amLODIPine [Norvasc] 5 mg PO DAILY #30 tab 10/14/21 glipiZIDE [Glucotrol] 10 mg PO DAILY #60 tab 10/14/21 Levofloxacin [Levaquin] 750 mg PO Q48H #7 tab 11/24/21 Losartan [Cozaar] 25 mg PO DAILY #10 tab 11/24/21 Allergies Allergy/AdvReac Type Severity Reaction Status Date / Time Penicillins Allergy Swelling Verified 11/28/21 02:24 Sulfa (Sulfonamide Allergy Swelling Verified 11/28/21 02:24 Antibiotics) Review of Systems ROS Statement: Those systems with pertinent positive or pertinent negative responses have been documented in the HPI. ROS Other: All systems not noted in ROS Statement are negative. Constitutional: Denies: fever, chills, weakness Respiratory: Reports: as per HPI, dyspnea. Denies: cough, wheezes, hemoptysis Cardiovascular: Reports: as per HPI, chest pain, palpitations. Denies: orthopnea, edema, syncope Gastrointestinal: Denies: abdominal pain, nausea, vomiting, diarrhea Genitourinary: Denies: dysuria, hematuria Musculoskeletal: Denies: back pain Skin: Denies: rash Neurological: Denies: headache, weakness, numbness EKG Findings - EKG Comments: EKG Findings:: There are lateral T inversions which were present on the prior comparison ECG. - EKG Results: EKG: interpreted by BHAVYA, sinus rhythm (Rate 57 bpm), normal axis EKG shows: bradycardia - Blocks, [place], Hypertrophy, ST Abn: AV and intraventricular conduction: intraventricular conduction delay Past Medical History Past Medical History: Atrial Fibrillation, Asthma, Coronary Artery Disease (CAD), Chest Pain / Angina, Heart Failure, Diabetes Mellitus, GERD/Reflux, Hyperlipidemia, Hypertension, Myocardial Infarction (AR), Renal Disease, Sleep Apnea/CPAP/BIPAP Additional Past Medical History / Comment(s): Morbid obesity Last Myocardial Infarction Date:: 2008 History of Any Multi-Drug Resistant Organisms: MRSA Date of last positivie culture/infection: 10/2020 MDRO Source:: Right eye Past Surgical History: Adenoidectomy, Coronary Bypass/CABG, Heart Catheterization With Stent, Tonsillectomy Additional Past Surgical History / Comment(s): cardiac stents x 5, quad bipass open heart 10/07/2021 Past Anesthesia/Blood Transfusion Reactions: Postoperative Nausea & Vomiting (PONV) Date of Last Stent Placement:: 2008 Past Psychological History: ADD/ADHD, Anxiety, Bipolar, Depression, PTSD Additional Psychological History / Comment(s): Pt resides at [facility], [address]. 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 He does not like it at [facility], stating he cannot rest/sleep d/t noise and has difficulty with the stairs there. 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 Smoking Status: Former smoker Past Alcohol Use History: None Reported Additional Past Alcohol Use History / Comment(s): Pt started smoking in 1982 ans quit 10/03/21 Past Drug Use History: None Reported - Past Family History Father Family Medical History: Cancer, Coronary Artery Disease (CAD), Myocardial Infarction (AR) Additional Family Medical History / Comment(s): at age 68 from mesothelioma, diagnosis of heart disease age of 60 Mother Family Medical History: Cancer, Coronary Artery Disease (CAD), Diabetes Mellitus, Liver Disease, Myocardial Infarction (AR) Additional Family Medical History / Comment(s): from liver cancer, diagnosed with heart disease before the age of 60 General Exam Limitations: physical limitation General appearance: alert, in no apparent distress Head exam: Present: atraumatic, normocephalic Eye exam: Present: normal appearance. Absent: scleral icterus, conjunctival injection Neck exam: Present: normal inspection Respiratory exam: Present: normal lung sounds bilaterally, rales (Trace crackles at the bases bilaterally). Absent: respiratory distress, wheezes, rhonchi, stridor Cardiovascular Exam: Present: regular rate, normal rhythm, normal heart sounds. Absent: systolic murmur, diastolic murmur, rubs, gallop GI/Abdominal exam: Present: soft. Absent: distended, tenderness, guarding, r ebound, rigid, mass Extremities exam: Present: normal inspection, normal capillary refill. Absent: pedal edema, calf tenderness Back exam: Present: normal inspection. Absent: CVA tenderness (R), CVA tenderness (L) Neurological exam: Present: alert Skin exam: Present: warm, dry, intact, normal color. Absent: rash Course Vital Signs 11/28/21 11/28/21 11/28/21 02:15 02:18 02:41 Temperature 89.5 F L Pulse Rate 57 L 58 L Respiratory 18 18 18 Rate Blood Pressure 167/90 164/91 O2 Sat by Pulse 97 98 Oximetry 11/28/21 11/28/21 03:24 04:00 Temperature Pulse Rate 58 L 57 L Respiratory 20 18 Rate Blood Pressure 152/81 132/83 O2 Sat by Pulse 97 Oximetry Procedures - Paige Protocol (Time Out) Nurse: Segundo Samuel Chest Pain MDM - [facility] Patient's 51-year-old man presenting with symptoms consistent with is obstructive sleep apnea. He states all the symptoms have resolved here. I reviewed patient's chest x-ray which is interpreted as possible pneumonia. The patient not having symptoms suggestive of that. No fever or chills. No cough. Suspect that there is some mild failure. At this point patient be admitted to trend the troponin which is minimally elevated. Disposition Clinical Impression: Elevated troponin I level, Congestive heart failure, Obstructive sleep apnea Disposition: ADMITTED IP TO THIS HOSP Condition: Good Is patient prescribed a controlled substance at d/c from ED?: No
[2021-11-28] MEDS ORDERED: ACETAMINOPHEN TAB 325 MG TAB PO PRN (09:51)
[2021-11-28] MEDS ORDERED: METOPROLOL TARTRATE 50 MG TAB PO SCH ×2 (10:33→21:00)
[2021-11-28] MEDS ORDERED: LOSARTAN 25 MG TAB PO SCH (10:45)
[2021-11-28] MEDS ORDERED: FUROSEMIDE 40 MG TAB PO SCH (10:45)
[2021-11-28] MEDS: amLODIPine 5 MG TAB PO SCH (11:18)
[2021-11-28] MEDS: CLOPIDOGREL 75 MG TAB PO SCH (11:18)
[2021-11-28] MEDS: SODIUM BICARBONATE TAB 650 MG TAB PO SCH (11:18)
[2021-11-28] MEDS: SERTRALINE 50 MG TAB PO SCH (11:18)
[2021-11-28] MEDS: ASPIRIN 81 MG PO SCH (11:19)
[2021-11-28] MEDS: POTASSIUM CHLORIDE ER 10 MEQ TAB.ER.PRT PO SCH (11:19)
[2021-11-28 11:53] LABS: Glucose,Whole Blood 127 mg/dL (75-99)
--- NOTE | 2021-11-28 15:03 | HP ---
HISTORY AND PHYSICAL CHIEF COMPLAINT: Shortness of breath. HISTORY OF PRESENT ILLNESS: This 51-year-old white male was just discharged from the hospital about a week ago. He recently underwent a CABG. When he was in the hospital it was felt that he was in some mild heart failure and his BNP was elevated. He was sent home and apparently was doing well. He never did get to the office. He came in on the night of admission after he experienced shortness of breath lying down. He had to sit up to breathe. He denies any chest pain. He has had no syncope, palpitations, etc. REVIEW OF SYSTEMS: Otherwise unremarkable. He has had no fever, chills, nausea, vomiting, diarrhea, etc. Past medical history, family history, and personal and social histories are all otherwise unremarkable or unchanged from his recent discharge. PHYSICAL EXAMINATION: Blood pressure is 105/64 with a pulse of 71 and regular, respirations of 30, and he is afebrile. In general he appeared to be overweight and in no acute distress. Skin color is normal. Skin is warm and dry. Lymph nodes are not enlarged. Head, ears, eyes, nose, mouth and throat were normal. The chest demonstrated decreased breath sounds at the bases. There were occasional rales and there was occasional mild wheezing. Cardiac exam was normal with normal sinus rhythm. Abdomen is protuberant, soft and nontender. Extremities are normal. Neurologically he is intact. He is admitted to the hospital with the diagnoses: 1. Acute exacerbation of congestive heart failure. 2. Status post recent coronary artery bypass grafting. PLAN: 1. Bedrest. 2. IV fluids. 3. BNP. 4. Diuresis. 5. Cardiology consult. MMODL / IJN: [id number] /
[2021-11-28] MEDS ORDERED: SPIRONOLACTONE 25 MG TAB PO STA (16:08)
[2021-11-28 16:30] LABS: Glucose,Whole Blood 123 mg/dL (75-99)
[2021-11-28] MEDS: ASCORBIC ACID 500 MG TAB PO SCH (16:55)
[2021-11-28] MEDS: FERROUS SULFATE 325 MG TAB PO SCH (16:55)
[2021-11-28] MEDS: SYMBICORT 160-4.5 MCG INHALER INHALATION SCH (19:52)
[2021-11-28 20:02] LABS: Glucose,Whole Blood 184 mg/dL (75-99)
[2021-11-28] MEDS: SACUBITRIL/VALSARTAN 24 MG-26 MG TABLET PO SCH (20:29)
[2021-11-28] MEDS ORDERED: ATORVASTATIN 80 MG TAB PO SCH (21:00)
[2021-11-29 04:06] VITALS: RESP 18
[2021-11-29 06:07] LABS: Glucose,Whole Blood 125 mg/dL (75-99)
[2021-11-29] MEDS: FERROUS SULFATE 325 MG TAB PO SCH (06:25)
[2021-11-29] MEDS: ASCORBIC ACID 500 MG TAB PO SCH (06:25)
[2021-11-29] MEDS: SYMBICORT 160-4.5 MCG INHALER INHALATION SCH (08:03)
[2021-11-29 08:10] VITALS: TEMP 97.5
[2021-11-29] MEDS: CLOPIDOGREL 75 MG TAB PO SCH (08:12)
[2021-11-29] MEDS: SODIUM BICARBONATE TAB 650 MG TAB PO SCH (08:12)
[2021-11-29] MEDS: ASPIRIN 81 MG PO SCH (08:12)
[2021-11-29] MEDS: POTASSIUM CHLORIDE ER 10 MEQ TAB.ER.PRT PO SCH (08:13)
[2021-11-29] MEDS: SERTRALINE 50 MG TAB PO SCH (08:13)
[2021-11-29] MEDS: amLODIPine 5 MG TAB PO SCH (08:13)
[2021-11-29] MEDS: SACUBITRIL/VALSARTAN 24 MG-26 MG TABLET PO SCH (08:13)
[2021-11-29] MEDS ORDERED: FUROSEMIDE 40 MG TAB PO SCH ×2 (09:00)
[2021-11-29] MEDS ORDERED: POTASSIUM CHLORIDE ER 10 MEQ TAB.ER.PRT PO SCH (09:00)
[2021-11-29] MEDS ORDERED: METOPROLOL SUCCINATE (ER) 50 MG TAB.ER.24H PO SCH (09:00)
[2021-11-29] MEDS ORDERED: SODIUM BICARBONATE TAB 650 MG TAB PO SCH (09:00)
[2021-11-29] MEDS ORDERED: CLOPIDOGREL 75 MG TAB PO SCH (09:00)
[2021-11-29] MEDS ORDERED: ASPIRIN 325 MG TAB PO SCH (09:00)
[2021-11-29] MEDS ORDERED: LOSARTAN 25 MG TAB PO SCH (09:00)
[2021-11-29] MEDS ORDERED: SERTRALINE 50 MG TAB PO SCH (09:00)
[2021-11-29] MEDS ORDERED: ASPIRIN 81 MG PO SCH (09:00)
[2021-11-29] MEDS ORDERED: amLODIPine 5 MG TAB PO SCH (09:00)
[2021-11-29 09:08] LABS: Chol/HDL Ratio 3.57 Ratio; LDL Cholesterol,Calculated 62.7 mg/dL (0.0-131.0)
[2021-11-29 11:16] VITALS: BP 140/79; PULSE 53
[2021-11-29 11:38] LABS: Glucose,Whole Blood 141 mg/dL (75-99)
--- NOTE | 2021-12-01 21:49 | DS ---
DISCHARGE SUMMARY CHIEF COMPLAINT: Chest pain, shortness of breath. HISTORY OF PRESENT ILLNESS AND PHYSICAL EXAMINATION: Details of this man's history and physical can be found in the initial workup. LABORATORY STUDIES: While he was in the hospital, he had laboratory studies, details of which can be found in the laboratory section of his chart. COURSE IN THE HOSPITAL: After admission, he was placed on bedrest and started on IV fluids, and nasal O2. Cardiac enzymes were normal. He stated that he never did have any chest pain and it was only shortness of breath. It was felt that this was related to congestive heart failure and he was doing well and it was felt he could be discharged home on the fifth and he will be followed up in a day or 2 in the office. FINAL DIAGNOSES: Acute on chronic systolic congestive heart failure or OPERATIONS: None. CONSULTATIONS: Cardiology. He is improved. DMITRI / NANCIE: [id number] /
== END 2021-11-29 14:55 | disposition home or self-care (01) ==
LOC: EC 01:53 → 3SCARD 04:27
PROVIDERS: ADMIT Family Medicine; ATTEND Family Medicine
DX: I11.0 Hypertensive heart disease with heart failure (principal); I50.23 Acute on chronic systolic (congestive) heart failure; G47.33 Obstructive sleep apnea (adult) (pediatric); I48.91 Unspecified atrial fibrillation; J45.909 Unspecified asthma, uncomplicated; E11.9 Type 2 diabetes mellitus without complications; K21.9 Gastro-esophageal reflux disease without esophagitis; E78.5 Hyperlipidemia, unspecified; I25.2 Old myocardial infarction; F43.10 Post-traumatic stress disorder, unspecified; F31.9 Bipolar disorder, unspecified; N28.9 Disorder of kidney and ureter, unspecified; F90.9 Attention-deficit hyperactivity disorder, unspecified type; F41.9 Anxiety disorder, unspecified; I25.10 Atherosclerotic heart disease of native coronary artery without angina pectoris; E66.01 Morbid (severe) obesity due to excess calories; Z68.41 Body mass index [BMI] 40.0-44.9, adult; Z95.1 Presence of aortocoronary bypass graft; Z86.14 Personal history of Methicillin resistant Staphylococcus aureus infection; Z95.5 Presence of coronary angioplasty implant and graft; Z87.891 Personal history of nicotine dependence; Z79.82 Long term (current) use of aspirin; Z79.899 Other long term (current) drug therapy; Z79.02 Long term (current) use of antithrombotics/antiplatelets; Z79.84 Long term (current) use of oral hypoglycemic drugs; Z88.0 Allergy status to penicillin; Z88.2 Allergy status to sulfonamides; Z82.49 Family history of ischemic heart disease and other diseases of the circulatory system; Z80.8 Family history of malignant neoplasm of other organs or systems; Z83.3 Family history of diabetes mellitus; Z80.0 Family history of malignant neoplasm of digestive organs
CPT/HCPCS: 99285; 36415; 94640 ×2; 93005; 83880; 80061; 80053; 83605; 83735; 84484; 85025; 85610; 85730; 71046; G0378 ×2

== ENCOUNTER 2021-12-28 22:36 | Observation (INO) | payer OTHER ==
[2021-12-29] LABS: Basophils % (A) 1 %; Eosinophils # (A) 0.3 k/uL (0-0.7); Eosinophils % (A) 4 %; HCT 41.1 % (39.0-53.0); HGB 13.2 gm/dL (13.0-17.5); Hypochromasia Slight; Lymphocytes # (A) 1.7 k/uL (1.0-4.8); Lymphocytes % (A) 25 %; MCH 28.6 pg (25.0-35.0); MCHC 32.1 g/dL (31.0-37.0); MCV 89.1 fL (80.0-100.0); Monocytes # (A) 0.4 k/uL (0-1.0); Monocytes % (A) 5 %; Neutrophils # (A) 4.2 k/uL (1.3-7.7); Neutrophils % (A) 63 %; Platelet Count 184 k/uL (150-450); RBC 4.61 m/uL (4.30-5.90); RDW 15.3 % (11.5-15.5); WBC 6.7 k/uL (3.8-10.6)
--- NOTE | 2021-12-29 00:17 | ED ---
General Adult HPI - General Chief complaint: Shortness of Breath Stated complaint: SOB Time Seen by Provider: 12/29/21 00:17 Source: patient Mode of arrival: ambulatory Limitations: no limitations - History of Present Illness Initial comments: Patient presents to the ED stating that he was trying to go to bed about 3-1/2 hours ago when he suddenly developed dyspnea and diffuse chest tightness. Patient states that he has a history of COPD, and he states that he attempted to use his "rescue inhaler" without much relief. Patient denies trauma or injury, fever or chills, headache, focal numbness/weakness/neuro deficit, neck/arm/jaw/back pain, pleuritic pain, cough or cold symptoms, palpitations, dizziness, nausea/vomiting/diaphoresis, abdominal pain, dysuria or urinary symptoms, decreased urine output, leg or calf swelling or pain, or any other symptoms or complaints. - Related Data Home Medications Medication Instructions Recorded Confirmed Nitroglycerin Sl Tabs [Nitrostat] 0.4 mg SL Q5M PRN 11/02/21 11/28/21 Aspirin EC [Ecotrin Low Dose] 81 mg PO DAILY 11/10/21 11/28/21 Albuterol Sulfate [Albuterol 2 puff INHALATION RT-QID PRN 11/28/21 11/28/21 Sulfate Hfa] Budesonide/Formoterol Fumarate 2 puff INHALATION RT-BID 11/28/21 11/28/21 [Symbicort 160-4.5 Mcg Inhaler] Previous Rx's Medication Instructions Recorded Acetaminophen Tab [Tylenol] 650 mg PO Q4HR PRN tab 10/14/21 Ascorbic Acid [Vitamin C] 500 mg PO BID-W/MEALS #60 tab 10/14/21 Atorvastatin [Lipitor] 80 mg PO HS #30 tab 10/14/21 Clopidogrel [Plavix] 75 mg PO DAILY #30 tab 10/14/21 Ferrous Sulfate [Iron (65 MG 325 mg PO BID-W/MEALS #60 tab 10/14/21 Elemental)] Potassium Chloride ER [K-Dur 10] 10 meq PO DAILY #30 tab 10/14/21 Sertraline [Zoloft] 50 mg PO DAILY #30 tab 10/14/21 Sodium Bicarbonate Tab 650 mg PO DAILY #30 tab 10/14/21 amLODIPine [Norvasc] 5 mg PO DAILY #30 tab 10/14/21 glipiZIDE [Glucotrol] 10 mg PO DAILY #60 tab 10/14/21 Levofloxacin [Levaquin] 750 mg PO Q48H #7 tab 11/24/21 Losartan [Cozaar] 25 mg PO DAILY #10 tab 11/24/21 Furosemide [Lasix] 40 mg PO BID@0900,1600 #60 tab 11/29/21 Metoprolol Succinate (ER) [Toprol 50 mg PO DAILY #30 11/29/21 XL] Sacubitril/Valsartan [Entresto 24 1 each PO BID #60 tablet 11/29/21 mg-26 mg Tablet] Spironolactone [Aldactone] 25 mg PO DAILY #30 tablet 11/29/21 Allergies Allergy/AdvReac Type Severity Reaction Status Date / Time Penicillins Allergy Anaphylaxis Verified 11/28/21 07:54 spironolactone Allergy Anaphylaxis Verified 12/28/21 22:40 Sulfa (Sulfonamide Allergy Anaphylaxis Verified 11/28/21 07:54 Antibiotics) Review of Systems ROS Statement: Those systems with pertinent positive or pertinent negative responses have been documented in the HPI. ROS Other: All systems not noted in ROS Statement are negative. Past Medical History Past Medical History: Atrial Fibrillation, Asthma, Coronary Artery Disease (CAD), Chest Pain / Angina, Heart Failure, Diabetes Mellitus, GERD/Reflux, Hyperlipidemia, Hypertension, Myocardial Infarction (MS), Renal Disease, Sleep Apnea/CPAP/BIPAP Additional Past Medical History / Comment(s): Morbid obesity Last Myocardial Infarction Date:: 2008 History of Any Multi-Drug Resistant Organisms: MRSA Date of last positivie culture/infection: 10/2020 MDRO Source:: Right eye Past Surgical History: Adenoidectomy, Coronary Bypass/CABG, Heart Catheteri zation With Stent, Tonsillectomy Additional Past Surgical History / Comment(s): cardiac stents x 5, quad bipass open heart 10/07/2021 Past Anesthesia/Blood Transfusion Reactions: Postoperative Nausea & Vomiting (PONV) Date of Last Stent Placement:: 2008 Past Psychological History: ADD/ADHD, Anxiety, Bipolar, Depression, PTSD Smoking Status: Former smoker Past Alcohol Use History: None Reported Past Drug Use History: None Reported - Past Family History Father Family Medical History: Cancer, Coronary Artery Disease (CAD), Myocardial Infarction (MS) Additional Family Medical History / Comment(s): at age 68 from mesothelioma, diagnosis of heart disease age of 60 Mother Family Medical History: Cancer, Coronary Artery Disease (CAD), Diabetes Mellitus, Liver Disease, Myocardial Infarction (MS) Additional Family Medical History / Comment(s): from liver cancer, diagnosed with heart disease before the age of 60 General Exam Limitations: no limitations General appearance: alert, in no apparent distress Head exam: Present: atraumatic, normocephalic Eye exam: Present: normal appearance, EOMI ENT exam: Present: mucous membranes moist Neck exam: Present: other (Trachea is in midline) Respiratory exam: Present: normal lung sounds bilaterally, other (Diminished breath sounds bilaterally). Absent: respiratory distress, wheezes, rales, rhonchi, stridor, chest wall tenderness Cardiovascular Exam: Present: regular rate, normal rhythm, normal heart sounds, other (Normal radial pulses bilaterally) GI/Abdominal exam: Present: soft. Absent: distended, tenderness, guarding Extremities exam: Present: other (Negative Homans sign bilaterally). Absent: tenderness, pedal edema, calf tenderness Neurological exam: Present: alert, oriented X3. Absent: motor sensory deficit Psychiatric exam: Present: normal affect, normal mood Skin exam: Present: warm, dry, intact, normal color Course Vital Signs 12/28/21 12/29/21 12/29/21 22:37 00:37 00:48 Temperature 98.0 F Pulse Rate 93 72 85 Respiratory 18 Rate Blood Pressure 152/97 O2 Sat by Pulse 97 Oximetry - Reevaluation(s) Reevaluation #1: 12/29/21 00:42 Case, H&P, test results and ED management were discussed with Dr. Hansen. He accepts hospital admission. He has no further recommendations at this time. 12/29/21 00:59 Patient denies development of any new symptoms while in the ED. Patient states that his symptoms have improved somewhat with the DuoNeb treatment that he was given in the ED. Patient remains alert and breathing comfortably. Patient is aware of his test results, and he agrees with hospital admission at time. EKG Findings - EKG Comments: EKG Findings:: Normal sinus rhythm, ventricular rate of 85 bpm, no ectopy, normal DC and QRS intervals, normal QT interval, normal axis, lateral lead ST and T-wave abnormality, no significant change when compared to 11/28/2021 EKG Medical Decision Making - Medical Decision Making Patient's initial troponin is within normal limits. Patient's chest x-ray is fairly unremarkable. Patient was given a dose of aspirin in the ED. Given the patient's reported chest tightness and dyspnea that began about 3-1/2 hours prior to ED arrival, abnormal (though unchanged) EKG and CAD risk factors, will admit the patient to the hospital for serial troponins and cardiac monitoring. Dr. Hansen has accepted hospital admission. Patient feels comfortable this plan. - Lab Data Result diagrams: 12/28/21 23:29 12/28/21 23:29 Lab Results 12/28/21 12/28/21 12/28/21 Range/Units 23:29 23:29 23:29 WBC 6.7 (3.8-10.6) k/uL RBC 4.61 (4.30-5.90) m/uL Hgb 13.2 (13.0-17.5) gm/dL Hct 41.1 (39.0-53.0) % MCV 89.1 (80.0-100.0) fL MCH 28.6 (25.0-35.0) pg MCHC 32.1 (31.0-37.0) g/dL RDW 15.3 (11.5-15.5) % Plt Count 184 (150-450) k/uL MPV 7.0 Neutrophils % 63 % Lymphocytes % 25 % Monocytes % 5 % Eosinophils % 4 % Basophils % 1 % Neutrophils # 4.2 (1.3-7.7) k/uL Lymphocytes # 1.7 (1.0-4.8) k/uL Monocytes # 0.4 (0-1.0) k/uL Eosinophils # 0.3 (0-0.7) k/uL Basophils # 0.0 (0-0.2) k/uL Hypochromasia Slight PT 9.9 (9.0-12.0) sec INR 0.9 (<1.2) APTT 21.8 L (22.0-30.0) sec Sodium 135 L (137-145) mmol/L Potassium 4.8 (3.5-5.1) mmol/L Chloride 105 (98-107) mmol/L Carbon Dioxide 21 L (22-30) mmol/L Anion Gap 9 mmol/L BUN 57 H (9-20) mg/dL Creatinine 2.01 H (0.66-1.25) mg/dL Est GFR (CKD-EPI)AfAm 43 (>60 ml/min/1.73 sqM) Est GFR (CKD-EPI)NonAf 37 (>60 ml/min/1.73 sqM) Glucose 268 H (74-99) mg/dL Calcium 8.8 (8.4-10.2) mg/dL Total Bilirubin 0.3 (0.2-1.3) mg/dL AST 24 (17-59) U/L ALT 23 (4-49) U/L Alkaline Phosphatase 67 (38-126) U/L Troponin I (0.000-0.034) ng/mL NT-Pro-B Natriuret Pep pg/mL Total Protein 7.0 (6.3-8.2) g/dL Albumin 3.9 (3.5-5.0) g/dL 12/28/21 12/28/21 Range/Units 23:29 23:29 WBC (3.8-10.6) k/uL RBC (4.30-5.90) m/uL Hgb (13.0-17.5) gm/dL Hct (39.0-53.0) % MCV (80.0-100.0) fL MCH (25.0-35.0) pg MCHC (31.0-37.0) g/dL RDW (11.5-15.5) % Plt Count (150-450) k/uL MPV Neutrophils % % Lymphocytes % % Monocytes % % Eosinophils % % Basophils % % Neutrophils # (1.3-7.7) k/uL Lymphocytes # (1.0-4.8) k/uL Monocytes # (0-1.0) k/uL Eosinophils # (0-0.7) k/uL Basophils # (0-0.2) k/uL Hypochromasia PT (9.0-12.0) sec INR (<1.2) APTT (22.0-30.0) sec Sodium (137-145) mmol/L Potassium (3.5-5.1) mmol/L Chloride (98-107) mmol/L Carbon Dioxide (22-30) mmol/L Anion Gap mmol/L BUN (9-20) mg/dL Creatinine (0.66-1.25) mg/dL Est GFR (CKD-EPI)AfAm (>60 ml/min/1.73 sqM) Est GFR (CKD-EPI)NonAf (>60 ml/min/1.73 sqM) Glucose (74-99) mg/dL Calcium (8.4-10.2) mg/dL Total Bilirubin (0.2-1.3) mg/dL AST (17-59) U/L ALT (4-49) U/L Alkaline Phosphatase (38-126) U/L Troponin I 0.029 (0.000-0.034) ng/mL NT-Pro-B Natriuret Pep 627 pg/mL Total Protein (6.3-8.2) g/dL Albumin (3.5-5.0) g/dL - Radiology Data Chest x-ray: No active cardiopulmonary disease. There is clearing of the mild heart failure compared to old exam. Disposition Clinical Impression: Dyspnea, Chest pain, Chronic renal insufficiency Disposition: ADMITTED IP TO THIS HOSP Condition: Stable Is patient prescribed a controlled substance at d/c from ED?: No Referrals: Edwin Hansen MD [Primary Care Provider] - 1-2 days Time of Disposition: 00:53
[2021-12-29 00:19] LABS: INR 0.9 (<1.2); Prothrombin Time 9.9 sec (9.0-12.0)
[2021-12-29 00:24] LABS: Albumin 3.9 g/dL (3.5-5.0); Calcium 8.8 mg/dL (8.4-10.2); Potassium 4.8 mmol/L (3.5-5.1); Total Bilirubin 0.3 mg/dL (0.2-1.3)
[2021-12-29 00:28] LABS: Partial Thromboplastin Time 21.8 sec (22.0-30.0)
[2021-12-29] MEDS ORDERED: IPRATROPIUM-ALBUTEROL 3 ML NEB INHALATION STA (00:28)
--- NOTE | 2021-12-29 00:39 | XR ---
EXAMINATION TYPE: XR chest 2V DATE OF EXAM: 12/29/2021 COMPARISON: 11/28/2021 HISTORY: Short of breath TECHNIQUE: 2 views FINDINGS: Heart is normal. Lungs are clear of consolidation. There are no hilar masses. There are mena rnal wires. Costophrenic angles are clear. Thoracic spine is intact IMPRESSION: No active cardiopulmonary disease. There is clearing of the mild heart failure compared t o old exam.
[2021-12-29] MEDS ORDERED: NITROGLYCERIN OINT 1 INCH/GM PACKET TOPICAL STA (00:42)
[2021-12-29] MEDS ORDERED: ASPIRIN 81 MG PO STA (00:42)
[2021-12-29 07:31] LABS: Glucose,Whole Blood 146 mg/dL (75-99)
[2021-12-29] MEDS ORDERED: ACETAMINOPHEN TAB 325 MG TAB PO PRN (11:16)
[2021-12-29] MEDS ORDERED: NITROGLYCERIN SL TABS 0.4 MG TAB SUBLINGUAL PRN (11:17)
[2021-12-29 11:58] LABS: Glucose,Whole Blood 230 mg/dL (75-99)
--- NOTE | 2021-12-29 12:11 | P.CRDCN ---
History of Present Illness Consult date: 12/29/21 History of present illness: History of Present Illness: The patient is a 51-year-old male with a known history of CAD, post CABG history of COPD and a prior PCI who underwent CABG in September of this year who presented with symptoms of acute dyspnea occurred at rest. He is followed on a regular basis by Dr. Bello. He underwent cardiac catheterization in September of this year and was found to have chronically occluded RCA severe obstructive disease in the LAD and the left circumflex. He subsequently underwent CABG with HONG to the LAD and radial to the ramus saphenous to the second obtuse marginal branch and saphenous to the PDA. He underwent a repeat echocardiogram in October of this year that showed a normal systolic function. The patient had no further sy mptoms of angina but he had an acute dyspnea not improving with his inhalers. He has a history of chronic tobacco use she stopped in September and a history of COPD. He denies any PND or orthopnea, he has mild edema. He is attending cardiac rehab without any symptoms or limitations according to him. His coronary risk factors are positive for hypertension, hyperlipidemia and diabetes in addition to the history of smoking. He has a prior history of chronic kidney disease. In the ER he had no acute ST segment changes, his first troponin was normal the second one was minimally abnormal and the subsequent one was normal again. His medication are home include amlodipine 5 mg daily, metoprolol succinate 50 mg daily, Cozaar 25 mg daily, Lasix 40 mg twice a day, Jardiance 10 mg daily, Plavix and 5 mg daily, aspirin once a day, Lipitor 80 mg daily Review of Systems: Respiratory: . He has a history of chronic obstructive lung disease and a prior history of wheezing and a prior history of smoking GI: She had nausea and vomiting today. No history of peptic ulcer disease. No recent GI bleed. : No hematuria or dysuria. Nervous System: No stroke or seizure. Physical Examination: 51-year-old male, alert and oriented no apparent distress, blood pressure 119/70 the heart rate in the 70s Head: Normocephalic. Eyes: Sclerae nonicteric. Neck: Good carotid upstroke, no bruit, no jugular venous distention. Lungs: Clear to auscultation. Heart: Regular rate and rhythm, S1-S2, no S3, no rub. Systolic ejection murmur. Abdomen: Soft nontender, positive bowel sounds no organomegaly. Extremities: No edema, intact distal pulses. Labs: BUN 57, creatinine 2.01, NT proBNP 627, troponin 0.029, 0.041 and 0.030. Hemoglobin 13.2. EKG shows sinus mechanism with borderline left axis deviation and nonspecific T-wave inversion in the lateral leads, no change compared to his prior EKG. Chest x-ray shows no acute infiltrate Impression: 1. Acute dyspnea with no evidence of CHF or acute coronary syndrome, his NT proBNP is normal and his troponin are stable. His dyspnea most likely is related to his lung status. 2. Status post CABG, stable 3. History of COPD 4. Hypertension 5. Diabetes 6. Hyperlipidemia 7. Chronic kidney disease Plan: 1. Continue home medication and stop Entresto. The patient is on Cozaar 2. Continue dual antiplatelets treatment 3. Continue telemetry 4. Increase activity 5. Depending on his progress further recommendations will be made. Thank you for this consult we will follow with you. Past Medical History Past Medical History: Atrial Fibrillation, Asthma, Coronary Artery Disease (CAD), Chest Pain / Angina, Heart Failure, Diabetes Mellitus, GERD/Reflux, Hyperlipidemia, Hypertension, Myocardial Infarction ([place]), Renal Disease, Sleep Apnea/CPAP/BIPAP Additional Past Medical History / Comment(s): Morbid obesity Last Myocardial Infarction Date:: 2008 History of Any Multi-Drug Resistant Organisms: MRSA Date of last positivie culture/infection: 10/2020 MDRO Source:: Right eye Past Surgical History: Adenoidectomy, Coronary Bypass/CABG, Heart Catheterization With Stent, Tonsillectomy Additional Past Surgical History / Comment(s): cardiac stents x 5, quad bipass open heart 10/07/2021 Past Anesthesia/Blood Transfusion Reactions: Postoperative Nausea & Vomiting (PONV) Date of Last Stent Placement:: 2008 Past Psychological History: ADD/ADHD, Anxiety, Bipolar, Depression, PTSD Additional Psychological History / Comment(s): Pt resides at [place] [address] [facility]. 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 He d oes not like it at [facility], stating he cannot rest/sleep d/t noise and has difficulty with the stairs there. 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 Smoking Status: Former smoker Past Alcohol Use History: None Reported Additional Past Alcohol Use History / Comment(s): Pt started smoking in 1982 ans quit 10/03/21 Past Drug Use History: None Reported - Past Family History Father Family Medical History: Cancer, Coronary Artery Disease (CAD), Myocardial Infarction ([place]) Additional Family Medical History / Comment(s): at age 68 from mesothelioma, diagnosis of heart disease age of 60 Mother Family Medical History: Cancer, Coronary Artery Disease (CAD), Diabetes Me llitus, Liver Disease, Myocardial Infarction ([place]) Additional Family Medical History / Comment(s): from liver cancer, diagnosed with heart disease before the age of 60 Medications and Allergies Home Medications Medication Instructions Recorded Confirmed Type Acetaminophen Tab [Tylenol] 650 mg PO Q4HR PRN tab 10/14/21 12/29/21 Rx Ascorbic Acid [Vitamin C] 500 mg PO BID-W/MEALS #60 tab 10/14/21 12/29/21 Rx Atorvastatin [Lipitor] 80 mg PO HS #30 tab 10/14/21 12/29/21 Rx Ferrous Sulfate [Iron (65 MG 325 mg PO BID-W/MEALS #60 tab 10/14/21 12/29/21 Rx Elemental)] Potassium Chloride ER [K-Dur 10] 10 meq PO DAILY #30 tab 10/14/21 12/29/21 Rx Sertraline [Zoloft] 50 mg PO DAILY #30 tab 10/14/21 12/29/21 Rx Sodium Bicarbonate Tab 650 mg PO DAILY #30 tab 10/14/21 12/29/21 Rx amLODIPine [Norvasc] 5 mg PO DAILY #30 tab 10/14/21 12/29/21 Rx Nitroglycerin Sl Tabs [Nitrostat] 0.4 mg SL Q5M PRN 11/02/21 12/29/21 History Aspirin EC [Ecotrin Low Dose] 81 mg PO DAILY 11/10/21 12/29/21 History Losartan [Cozaar] 25 mg PO DAILY #10 tab 11/24/21 12/29/21 Rx Albuterol Sulfate [Albuterol 2 puff INHALATION RT-QID PRN 11/28/21 12/29/21 History Sulfate Hfa] Budesonide/Formoterol Fumarate 2 puff INHALATION RT-BID 11/28/21 12/29/21 History [Symbicort 160-4.5 Mcg Inhaler] Furosemide [Lasix] 40 mg PO BID@0900,1600 #60 tab 11/29/21 12/29/21 Rx Metoprolol Succinate (ER) [Toprol 50 mg PO DAILY #30 11/29/21 12/29/21 Rx XL] Clopidogrel [Plavix] 75 mg PO DIRECTED 12/29/21 12/29/21 History Empagliflozin [Jardiance] 10 mg PO DAILY 12/29/21 12/29/21 History Sacubitril/Valsartan [Entresto 24 1 tab PO BID 12/29/21 12/29/21 History mg-26 mg Tablet] Allergies Allergy/AdvReac Type Severity Reaction Status Date / Time Penicillins Allergy Anaphylaxis Verified 12/29/21 07:49 spironolactone Allergy Anaphylaxis Verified 12/29/21 07:49 Sulfa (Sulfonamide Allergy Anaphylaxis Verified 12/29/21 07:49 Antibiotics) Physical Exam Vitals: Vital Signs Temp Pulse Pulse Resp BP BP BP 12/29/21 07:00 97.9 F 79 12 119/77 12/29/21 02:07 97.8 F 82 17 134/86 12/29/21 00:59 83 16 127/73 12/29/21 00:48 85 12/29/21 00:40 18 12/29/21 00:37 72 12/28/21 22:37 98.0 F 93 18 152/97 Pulse Ox 12/29/21 07:00 96 12/29/21 02:07 97 12/29/21 00:59 98 12/29/21 00:48 12/29/21 00:40 12/29/21 00:37 12/28/21 22:37 97 Intake and Output 12/28/21 12/29/21 12/29/21 22:59 06:59 14:59 Other: Weight 127.006 kg 127.006 kg Results 12/28/21 23:29 12/28/21 23:29 Cardiac Enzymes 12/28/21 12/28/21 12/29/21 Range/Units 23:29 23:29 02:51 AST 24 (17-59) U/L Troponin I 0.029 0.041 H* (0.000-0.034) ng/mL 12/29/21 Range/Units 07:16 AST (17-59) U/L Troponin I 0.030 (0.000-0.034) ng/mL Coagulation 12/28/21 Range/Units 23:29 PT 9.9 (9.0-12.0) sec APTT 21.8 L (22.0-30.0) sec CBC 12/28/21 Range/Units 23:29 WBC 6.7 (3.8-10.6) k/uL RBC 4.61 (4.30-5.90) m/uL Hgb 13.2 (13.0-17.5) gm/dL Hct 41.1 (39.0-53.0) % Plt Count 184 (150-450) k/uL Comprehensive Metabolic Panel 12/28/21 Range/Units 23:29 Sodium 135 L (137-145) mmol/L Potassium 4.8 (3.5-5.1) mmol/L Chloride 105 (98-107) mmol/L Carbon Dioxide 21 L (22-30) mmol/L BUN 57 H (9-20) mg/dL Creatinine 2.01 H (0.66-1.25) mg/dL Glucose 268 H (74-99) mg/dL Calcium 8.8 (8.4-10.2) mg/dL AST 24 (17-59) U/L ALT 23 (4-49) U/L Alkaline Phosphatase 67 (38-126) U/L Total Protein 7.0 (6.3-8.2) g/dL Albumin 3.9 (3.5-5.0) g/dL Current Medications Generic Name Dose Route Start Last Admin Trade Name Freq PRN Reason Stop Dose Admin Acetaminophen 650 mg 12/29/21 11:16 Acetaminophen Tab 325 Mg Tab PO Q4HR PRN Fever and/ or Pain Amlodipine Besylate 5 mg 12/30/21 09:00 Amlodipine 5 Mg Tab PO DAILY [facility] Aspirin 81 mg 12/30/21 09:00 Aspirin 81 Mg PO DAILY [facility] Atorvastatin Calcium 80 mg 12/29/21 21:00 Atorvastatin 80 Mg Tab PO HS [facility] Budesonide/Formoterol Fumarate 2 puff 12/29/21 20:00 Symbicort 160-4.5 Mcg Inhaler INHALATION RT-BID [facility] Clopidogrel Bisulfate 75 mg 12/29/21 11:30 Clopidogrel 75 Mg Tab PO DIRECTED [facility] Ferrous Sulfate 325 mg 12/29/21 17:30 Ferrous Sulfate 325 Mg Tab PO BID-W/MEALS [facility] Furosemide 40 mg 12/29/21 16:00 Furosemide 40 Mg Tab PO BID@0900,1600 [facility] Losartan Potassium 25 mg 12/30/21 09:00 Losartan 25 Mg Tab PO DAILY [facility] Metoprolol Succinate 50 mg 12/30/21 09:00 Metoprolol Succinate (Er) 50 Mg Tab.Er.24h PO DAILY [facility] Nitroglycerin 0.4 mg 12/29/21 11:17 Nitroglycerin Sl Tabs 0.4 Mg Tab SUBLINGUAL Q5M PRN Chest Pain Non-Formulary Medication 10 mg 12/30/21 09:00 Empagliflozin [Jardiance] PO DAILY [facility] Potassium Chloride 10 meq 12/30/21 09:00 Potassium Chloride Er 10 Meq Tab.Er.Prt PO DAILY [facility] Sacubitril/Valsartan 1 each 12/29/21 21:00 Sacubitril/Valsartan 24 Mg-26 Mg Tablet PO BID [facility] Sertraline HCl 50 mg 12/30/21 09:00 Sertraline 50 Mg Tab PO DAILY [facility] Sodium Bicarbonate 650 mg 12/30/21 09:00 Sodium Bicarbonate Tab 650 Mg Tab PO DAILY [facility] Intake and Output 12/28/21 12/29/21 12/29/21 22:59 06:59 14:59 Other: Weight 127.006 kg 127.006 kg 12/28/21 23:29 12/28/21 23:29
[2021-12-29] MEDS: CLOPIDOGREL 75 MG TAB PO SCH (14:19)
[2021-12-29 16:38] LABS: Glucose,Whole Blood 156 mg/dL (75-99)
[2021-12-29] MEDS: FERROUS SULFATE 325 MG TAB PO SCH (17:45)
[2021-12-29] MEDS: FUROSEMIDE 40 MG TAB PO SCH (17:45)
--- NOTE | 2021-12-29 17:57 | HP ---
HISTORY AND PHYSICAL CHIEF COMPLAINT: Shortness of breath and CAD. HISTORY OF PRESENT ILLNESS: This gentleman is back in the emergency room. He was in the hospital a week or 2 ago. Right after that, he went to [facility] and was just discharged Wednesday with no diagnosis. Now he is back in with shortness of breath. He denies chest pain. He has had no orthopnea, significant edema, etc. His BNP is slightly elevated. The remainder of his history is unremarkable and unchanged. PHYSICAL EXAMINATION: Blood pressure is 128/76 with a pulse is 81, respirations of 32 and he is afebrile. GENERAL: He appeared to be overweight. SKIN color is normal skin is warm, dry. HEAD, ears, eyes, nose, mouth and throat were normal. NECK veins are not distended. Thyroid is not enlarged. CHEST is clear. CARDIAC exam is normal. ABDOMEN is soft and nontender. It is protuberant. EXTREMITIES are normal. NEUROLOGICAL is intact. IMPRESSION: He is admitted to the hospital with diagnoses: 1. Shortness of breath, etiology unknown. 2. Recent coronary artery bypass grafting. 3. Probable mild congestive heart failure. 4. Diabetes. PLAN: 1. Repeat cardiology consult. 2. Probably increase diuretic management. 3. D-dimer. 4. Consider pulmonary etiology. MMODL / IJN: [id number] /
--- NOTE | 2021-12-29 18:02 | PN ---
PROGRESS NOTE CHIEF COMPLAINT: Shortness of breath. HISTORY OF PRESENT ILLNESS: This gentleman is not having any chest pain. His troponin was up slightly. He only is complaining of chest pain. He has had no fever, chills, orthopnea, etc. He has had no hemoptysis or pleurisy. PHYSICAL EXAMINATION: His vital signs are normal. Chest is clear. Cardiac exam is normal. Abdomen is soft, nontender. IMPRESSION: 1. Shortness of breath. 2. Probable congestive heart failure. 3. Status post coronary artery bypass grafting. 4. Diabetes. 5. Obesity. PLAN: 1. Continue to monitor vital signs and troponins. 2. Await for cardiology's repeat evaluation. MMODL / IJN: [id number] /
[2021-12-29] MEDS ORDERED: ATORVASTATIN 80 MG TAB PO SCH (21:00)
[2021-12-29] MEDS ORDERED: SACUBITRIL/VALSARTAN 24 MG-26 MG TABLET PO SCH (21:00)
--- NOTE | 2021-12-29 21:21 | P.CNPUL ---
History of Present Illness Consult date: 12/29/21 Reason for consult: dyspnea History of present illness: This is a 51-year-old male patient with coronary artery disease who underwent coronary artery bypass surgery in September 2021. I was involved in the postoperative care of this patient. The patient also underwent a echocardiogram from October 2021 and showed a normal left a ejection fraction. He did well and he he was discharged to rehabilitation. Subsequent echocardiography showed a preserved LV function and the patient a preserved LV. The patient came in tonight because of worsening shortness of breath , and tightness across the right chest. The left-sided chest pain. No discomfort with deep breathing.. No angina. No pleurisy. No hemoptysis. No orthopnea. No swelling lower extremities. White cell count is at 6.7 with a hemoglobin of 13.2. Normal coagulation profile. Normal electrolytes. He is known to have chronic kidney disease with a creatinine of 2.01 and a GFR of 37. Troponins are 0.02 and 0.04 and 0.03 respectively. His chest x-ray showed post thoracotomy changes without any acute abnormalities. EKG showed a sinus rhythm. There was some nonspecific T-wave inversions, lateral leads. Clinically, the patient is stable. Hemodynamically stable. The patient is currently on room air oxygen. No home O2. Using Symbicort at home for COPD and albuterol rescue inhaler macerated basis. Review of Systems Constitutional: Reports fatigue Eyes: denies as per HPI, denies blurred vision, denies bulging eye, denies decreased vision, denies diplopia, denies discharge, denies dry eye, denies irritation, denies itching, denies pain, denies photophobia, denies loss of peripheral vision, denies loss of vision, denies tunnel vision/blind spots Ears: deny: decreased hearing, ear discharge, earache, tinnitus Ears, nose, mouth and throat: Reports as per HPI Breasts: absent: as per HPI, gynecomastia Cardiovascular: Reports decreased exercise tolerance, Reports dyspnea on exertion Respiratory: Reports dyspnea Gastrointestinal: Reports as per HPI Genitourinary: Reports as per HPI Musculoskeletal: Reports as per HPI Musculoskeletal: absent: ankle pain, ankle stiffness, ankle swelling, as per HPI, elbow pain, elbow stiffness, elbow swelling, foot pain, foot stiffness, foot swelling, hand pain, hand stiffness, hand swelling, hip pain, hip stiffness, hip swelling, knee pain, knee stiffness, knee swelling, shoulder pain, shoulder stiffness, shoulder swelling, wrist pain, wrist stiffness, wrist swelling Integumentary: Reports as per HPI Neurological: Reports as per HPI Psychiatric: Reports as per HPI Endocrine: Reports as per HPI Hematologic/Lymphatic: Reports as per HPI Allergic/Immunologic: Reports as per HPI Past Medical History Past Medical History: Atrial Fibrillation, Asthma, Coronary Artery Disease (CAD), Diabetes Mellitus, GERD/Reflux, Hyperlipidemia, Hypertension, Myocardial Infarction ([place]), Renal Disease, Sleep Apnea/CPAP/BIPAP Additional Past Medical History / Comment(s): Morbid obesity Last Myocardial Infarction Date:: 2008 History of Any Multi-Drug Resistant Organisms: MRSA Date of last positivie culture/infection: 10/2020 MDRO Source:: Right eye Past Surgical History: Adenoidectomy, Coronary Bypass/CABG, Heart Catheterization With Stent, Tonsillectomy Additional Past Surgical History / Comment(s): cardiac stents x 5, quad bipass open heart 10/07/2021 Past Anesthesia/Blood Transfusion Reactions: Postoperative Nausea & Vomiting (PONV) Date of Last Stent Placement:: 2008 Past Psychological History: ADD/ADHD, Anxiety, Bipolar, Depression, PTSD Additional Psychological History / Comment(s): Pt resides at [facility], [address] [place] [address]. 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 He does not like it at [facility], stating he cannot rest/sleep d/t noise and has difficulty with the stairs there. 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 Smoking Status: Former smoker Past Alcohol Use History: None Reported Additional Past Alcohol Use History / Comment(s): Pt started smoking in 1982 ans quit 10/03/21 Past Drug Use History: None Reported - Past Family History Father Family Medical History: Cancer, Coronary Artery Disease (CAD), Myocardial Infarction ([place]) Additional Family Medical History / Comment(s): at age 68 from mesothelioma, diagnosis of heart disease age of 60 Mother Family Medical History: Cancer, Coronary Artery Disease (CAD), Diabetes Mellitus, Liver Disease, Myocardial Infarction ([place]) Additional Family Medical History / Comment(s): from liver cancer, diagnosed with heart disease before the age of 60 Medications and Allergies Home Medications Medication Instructions Recorded Confirmed Type Acetaminophen Tab [Tylenol] 650 mg PO Q4HR PRN tab 10/14/21 12/29/21 Rx Ascorbic Acid [Vitamin C] 500 mg PO BID-W/MEALS #60 tab 10/14/21 12/29/21 Rx Atorvastatin [Lipitor] 80 mg PO HS #30 tab 10/14/21 12/29/21 Rx Ferrous Sulfate [Iron (65 MG 325 mg PO BID-W/MEALS #60 tab 10/14/21 12/29/21 Rx Elemental)] Potassium Chloride ER [K-Dur 10] 10 meq PO DAILY #30 tab 10/14/21 12/29/21 Rx Sertraline [Zoloft] 50 mg PO DAILY #30 tab 10/14/21 12/29/21 Rx Sodium Bicarbonate Tab 650 mg PO DAILY #30 tab 10/14/21 12/29/21 Rx amLODIPine [Norvasc] 5 mg PO DAILY #30 tab 10/14/21 12/29/21 Rx Nitroglycerin Sl Tabs [Nitrostat] 0.4 mg SL Q5M PRN 11/02/21 12/29/21 History Aspirin EC [Ecotrin Low Dose] 81 mg PO DAILY 11/10/21 12/29/21 History Losartan [Cozaar] 25 mg PO DAILY #10 tab 11/24/21 12/29/21 Rx Albuterol Sulfate [Albuterol 2 puff INHALATION RT-QID PRN 11/28/21 12/29/21 History Sulfate Hfa] Budesonide/Formoterol Fumarate 2 puff INHALATION RT-BID 11/28/21 12/29/21 History [Symbicort 160-4.5 Mcg Inhaler] Furosemide [Lasix] 40 mg PO BID@0900,1600 #60 tab 11/29/21 12/29/21 Rx Metoprolol Succinate (ER) [Toprol 50 mg PO DAILY #30 11/29/21 12/29/21 Rx XL] Clopidogrel [Plavix] 75 mg PO DIRECTED 12/29/21 12/29/21 History Empagliflozin [Jardiance] 10 mg PO DAILY 12/29/21 12/29/21 History Sacubitril/Valsartan [Entresto 24 1 tab PO BID 12/29/21 12/29/21 History mg-26 mg Tablet] Allergies Allergy/AdvReac Type Severity Reaction Status Date / Time Penicillins Allergy Anaphylaxis Verified 12/29/21 07:49 spironolactone Allergy Anaphylaxis Verified 12/29/21 07:49 Sulfa (Sulfonamide Allergy Anaphylaxis Verified 12/29/21 07:49 Antibiotics) Physical Exam Vitals: Vital Signs Temp Pulse Pulse Resp BP BP BP 12/29/21 14:25 98.3 F 88 20 138/80 12/29/21 08:00 79 12 12/29/21 07:00 97.9 F 79 12 119/77 12/29/21 02:07 97.8 F 82 17 134/86 12/29/21 00:59 83 16 127/73 12/29/21 00:48 85 12/29/21 00:40 18 12/29/21 00:37 72 12/28/21 22:37 98.0 F 93 18 152/97 Pulse Ox 12/29/21 14:25 93 L 12/29/21 08:00 12/29/21 07:00 96 12/29/21 02:07 97 12/29/21 00:59 98 12/29/21 00:48 12/29/21 00:40 12/29/21 00:37 12/28/21 22:37 97 Intake and Output 12/29/21 12/29/21 12/29/21 06:59 14:59 22:59 Intake Total 480 Balance 480 Intake: Oral 480 Other: # Voids 2 Weight 127.006 kg Gen. appearance the patient is calm comfortable likely distress and the patient is currently on room air oxygen with a pulse ox of 93% Head exam was generally normal. There was no scleral icterus or corneal arcus. Mucous membranes were moist. Neck: Good carotid upstroke, no bruit, no jugular venous distention. Lungs: Clear to auscultation. Heart: Regular rate and rhythm, S1-S2, no S3, no rub. Systolic ejection murmur. Abdomen: Soft nontender, positive bowel sounds no organomegaly. Extremities: No edema, intact distal pulses. Neurologically, the patient is awake and alert and the patient does not have any focal neurological deficit. Cranial nerves are essentially intact. Examination of the skin revealed no evidence of significant rashes, suspicious appearing nevi or other concerning lesions. Results - Laboratory Findings CBC and BMP: 12/28/21 23:29 12/28/21 23:29 PT/INR, D-dimer PT 9.9 sec (9.0-12.0) 12/28/21 23:29 INR 0.9 (<1.2) 12/28/21 23:29 Abnormal lab findings: Abnormal Labs 12/28/21 12/28/21 12/29/21 23:29 23:29 02:51 APTT 21.8 L Sodium 135 L Carbon Dioxide 21 L BUN 57 H Creatinine 2.01 H Glucose 268 H POC Glucose (mg/dL) Troponin I 0.041 H* 12/29/21 12/29/21 07:30 11:57 APTT Sodium Carbon Dioxide BUN Creatinine Glucose POC Glucose (mg/dL) 146 H 230 H Troponin I - Diagnostic Findings Chest x-ray: image reviewed Assessment and Plan Plan: 1 shortness of breath/nonspecific right-sided chest chest tightness described more so than external muscle cramp. No clear pulmonary cause for shortness of breath. D-dimer is low. Chest x-rays clear. No signs of any significant bronchospasm or wheezing. 2 coronary artery disease. The patient had symptomatically CAD the patient underwent coronary artery bypass surgery with HONG to LAD back in September 2021. The patient is post four-vessel bypass surgery. 3 known history of COPD with an FEV1 of 62% of predicted at baseline. The patient is maintained on Symbicort on outpatient basis 4 Essential hypertension. 5 Hyperlipidemia. 6 Diabetes mellitus. The patient has a HbA1c of 6.3%, insulin drip has been discontinued and the patient is currently on Levemir insulin 20 units plus a sliding scale coverage. 7 chronic stage III kidney disease, stable creatinine 8 Sleep apnea syndrome. not utilizing CPAP therapy. Body mass index is 21.8 9 History of anemia. 10 gout 11 active for COVID 19 including booster shot Plan Monitor the patient here in the hospital for another 24 hours currently on room air 02 Continue Symbicort Resume cardiac medications D-dimer is low Reasonable to repeat echocardiogram We'll follow
[2021-12-29 21:22] LABS: Glucose,Whole Blood 220 mg/dL (75-99)
[2021-12-29] MEDS: SYMBICORT 160-4.5 MCG INHALER INHALATION SCH (21:47)
[2021-12-30 06:42] LABS: ALT 61 U/L (4-49); AST 50 U/L (17-59); African American GFR (CKD) 47 (>60 ml/min/1.73 sqM); Albumin 3.8 g/dL (3.5-5.0); Albumin/Globulin Ratio 1.3; Alkaline Phosphatase 65 U/L (38-126); Anion Gap 12 mmol/L; Blood Urea Nitrogen 52 mg/dL (9-20); Calcium 8.9 mg/dL (8.4-10.2); Carbon Dioxide 21 mmol/L (22-30); Chloride 104 mmol/L (98-107); Globulin 2.9 g/dL; Glucose 143 mg/dL (74-99); Non-African American GFR(CKD) 41 (>60 ml/min/1.73 sqM); Potassium 4.4 mmol/L (3.5-5.1); Sodium 137 mmol/L (137-145); Total Bilirubin 0.5 mg/dL (0.2-1.3); Total Protein 6.7 g/dL (6.3-8.2)
[2021-12-30 07:03] LABS: Glucose,Whole Blood 150 mg/dL (75-99)
[2021-12-30] MEDS: SYMBICORT 160-4.5 MCG INHALER INHALATION SCH (08:31)
[2021-12-30] MEDS: FERROUS SULFATE 325 MG TAB PO SCH ×2 (08:55→17:20)
[2021-12-30] MEDS: FUROSEMIDE 40 MG TAB PO SCH ×2 (08:55→17:28)
[2021-12-30] MEDS: CLOPIDOGREL 75 MG TAB PO SCH (08:55)
[2021-12-30] MEDS ORDERED: SERTRALINE 50 MG TAB PO SCH (09:00)
[2021-12-30] MEDS ORDERED: POTASSIUM CHLORIDE ER 10 MEQ TAB.ER.PRT PO SCH (09:00)
[2021-12-30] MEDS ORDERED: METOPROLOL SUCCINATE (ER) 50 MG TAB.ER.24H PO SCH (09:00)
[2021-12-30] MEDS ORDERED: ASPIRIN 81 MG PO SCH (09:00)
[2021-12-30] MEDS ORDERED: amLODIPine 5 MG TAB PO SCH (09:00)
[2021-12-30] MEDS ORDERED: SODIUM BICARBONATE TAB 650 MG TAB PO SCH (09:00)
[2021-12-30] MEDS ORDERED: LOSARTAN 25 MG TAB PO SCH (09:00)
[2021-12-30] MEDS ORDERED: NON FORMULARY DRUG (Empagliflozin [Jardiance] 10 MG Tablet) PO SCH (09:00)
[2021-12-30 09:13] LABS: Basophils # (A) 0.06 X 10*3/uL (0.00-0.10); Basophils % (A) 1.1 %; Eosinophils # (A) 0.28 X 10*3/uL (0.04-0.35); HCT 36.8 % (39.6-50.0); HGB 11.4 g/dL (13.0-17.0); Immature Grans, Automated 3.6 %; Lymphocytes # (A) 1.44 X 10*3/uL (0.90-5.00); Lymphocytes % (A) 25.7 %; MCH 27.5 pg (27.0-32.0); MCV 88.7 fL (80.0-97.0); Monocytes # (A) 0.47 X 10*3/uL (0.20-1.00); Monocytes % (A) 8.4 %; NRBC Per 100 WBC 0 /100 WBCS (0.0-0.0); Neutrophils # (A) 3.15 X 10*3/uL (1.80-7.70); Neutrophils % (A) 56.2 %; Platelet Count 139 X 10*3/uL (140-440); RBC 4.15 X 10*6/uL (4.40-5.60)
--- NOTE | 2021-12-30 11:08 | P.PN ---
Subjective Progress Note Date: 12/30/21 HISTORY OF PRESENT ILLNESS: The patient is a 51-year-old male with a known history of CAD, post CABG history of COPD and a prior PCI who underwent CABG in September of this year who presented with symptoms of acute dyspnea occurred at rest. He is followed on a regular basis by Dr. Bello. He underwent cardiac catheterization in September of this year and was found to have chronically occluded RCA severe obstructive disease in the LAD and the left circumflex. He subsequently underwent CABG with HONG to the LAD and radial to the ramus saphenous to the second obtuse marginal branch and saphenous to the PDA. He underwent a repeat echocardiogram in October of this year that showed a normal systolic function. The patient had no further symptoms of angina but he had an acute dyspnea not improving with his inhalers. He has a history of chronic tobacco use she stopped in September and a history of COPD. He denies any PND or orthopnea, he has mild edema. He is attending [facility] without any symptoms or limitations according to him. His coronary risk factors are positive for hypertension, hyperlipidemia and diabetes in addition to the history of smoking. He has a prior history of chronic kidney disease. In the ER he had no acute ST segment changes, his first troponin was normal the second one was minimally abnormal and the subsequent one was normal again. His medication are home include amlodipine 5 mg daily, metoprolol succinate 50 mg daily, Cozaar 25 mg daily, Lasix 40 mg twice a day, Jardiance 10 mg daily, Plavix and 5 mg daily, aspirin once a day, Lipitor 80 mg daily 12/30/2021 Patient examined this morning at the bedside. Patient states his breathing is "so-so". He reports slight improvement in his breathing compared to yesterday. He denies any chest pain or pressure. Vital signs are stable. PHYSICAL EXAM: VITAL SIGNS: Reviewed. GENERAL: Well-developed in no acute distress. NECK: Supple. No JVD or thyromegaly LUNGS: Respirations even and unlabored. Lungs essentially clear to auscultation bilaterally. HEART: Regular rate and rhythm. S1 and S2 heard. Systolic murmur noted. EXTREMITIES: Normal range of motion. No clubbing or cyanosis. Peripheral pulses intact. No lower extremity edema ASSESSMENT: 1. Acute dyspnea with no evidence of CHF or acute coronary syndrome, his NT proBNP is normal and his troponin are stable. His dyspnea most likely is related to his lung status. 2. Status post CABG, stable 3. History of COPD 4. Hypertension 5. Diabetes 6. Hyperlipidemia 7. Chronic kidney disease PLAN: Continue current cardiac medications Pulmonary following. Repeat echo ordered per pulmonary. Further recommendations pending evaluation today by Dr. Olivares Nurse practitioner note has been reviewed by physician. Signing provider agrees with the documented findings, assessment, and plan of care. Objective - Vital Signs Vital signs: Vital Signs Temp 97.7 F 12/30/21 07:09 Pulse 92 12/30/21 07:09 Resp 17 12/30/21 07:09 BP 113/78 12/30/21 07:09 Pulse Ox 94 L 12/30/21 07:09 Intake & Output 12/29/21 12/30/21 12/30/21 18:59 06:59 18:59 Intake Total 598 Balance 598 Intake: Oral 598 Other: # Voids 2 1 - Labs CBC & Chem 7: 12/30/21 05:47 12/30/21 05:47 Labs: Abnormal Lab Results - Last 24 Hours (Table) 12/29/21 12/29/21 12/29/21 Range/Units 11:57 16:36 16:38 RBC (4.40-5.60) X 10*6/uL Hgb (13.0-17.0) g/dL Hct (39.6-50.0) % MCHC (32.0-37.0) g/dL RDW (11.5-14.5) % Plt Count (140-440) X 10*3/uL MPV (9.5-12.2) fL Immature Gran # (0.00-0.04) X 10*3/uL D-Dimer 0.84 H (<0.60) mg/L FEU Carbon Dioxide (22-30) mmol/L BUN (9-20) mg/dL Creatinine (0.66-1.25) mg/dL Glucose (74-99) mg/dL POC Glucose (mg/dL) 230 H 156 H (75-99) mg/dL ALT (4-49) U/L 12/29/21 12/30/21 12/30/21 Range/Units 21:21 05:47 05:47 RBC 4.15 L (4.40-5.60) X 10*6/uL Hgb 11.4 L (13.0-17.0) g/dL Hct 36.8 L (39.6-50.0) % MCHC 31.0 L (32.0-37.0) g/dL RDW 15.0 H (11.5-14.5) % Plt Count 139 L (140-440) X 10*3/uL MPV 9.0 L (9.5-12.2) fL Immature Gran # 0.20 H (0.00-0.04) X 10*3/uL D-Dimer (<0.60) mg/L FEU Carbon Dioxide 21 L (22-30) mmol/L BUN 52 H (9-20) mg/dL Creatinine 1.86 H (0.66-1.25) mg/dL Glucose 143 H (74-99) mg/dL POC Glucose (mg/dL) 220 H (75-99) mg/dL ALT 61 H (4-49) U/L 12/30/21 Range/Units 07:02 RBC (4.40-5.60) X 10*6/uL Hgb (13.0-17.0) g/dL Hct (39.6-50.0) % MCHC (32.0-37.0) g/dL RDW (11.5-14.5) % Plt Count (140-440) X 10*3/uL MPV (9.5-12.2) fL Immature Gran # (0.00-0.04) X 10*3/uL D-Dimer (<0.60) mg/L FEU Carbon Dioxide (22-30) mmol/L BUN (9-20) mg/dL Creatinine (0.66-1.25) mg/dL Glucose (74-99) mg/dL POC Glucose (mg/dL) 150 H (75-99) mg/dL ALT (4-49) U/L
[2021-12-30 12:21] LABS: Glucose,Whole Blood 213 mg/dL (75-99)
--- NOTE | 2021-12-30 13:42 | P.PN ---
Subjective Progress Note Date: 12/30/21 On today's evaluation of 12/30/2021, the patient is resting comfortably in bed. No significant complaints. The patient remains on room air oxygen. Echocardiac Helio was ordered. The patient has no new complaints otherwise for now. No chest pain. No palpitations. Remains on room air oxygen. All medications have been all resumed. D-dimer is negative and the patient has a stable creatinine. Objective - Vital Signs Vital signs: Vital Signs Temp 98 F 12/30/21 13:41 Pulse 92 12/30/21 13:41 Resp 19 12/30/21 13:41 BP 125/82 12/30/21 13:41 Pulse Ox 94 L 12/30/21 13:41 Intake & Output 12/29/21 12/30/21 12/30/21 18:59 06:59 18:59 Intake Total 598 474 Balance 598 474 Intake: Oral 598 474 Other: # Voids 2 1 - Exam Gen. appearance the patient is calm comfortable likely distress and the patient is currently on room air oxygen with a pulse ox of 93% Head exam was generally normal. There was no scleral icterus or corneal arcus. Mucous membranes were moist. Neck: Good carotid upstroke, no bruit, no jugular venous distention. Lungs: Clear to auscultation. Heart: Regular rate and rhythm, S1-S2, no S3, no rub. Systolic ejection murmur. Abdomen: Soft nontender, positive bowel sounds no organomegaly. Extremities: No edema, intact distal pulses. Neurologically, the patient is awake and alert and the patient does not have any focal neurological deficit. Cranial nerves are essentially intact. Examination of the skin revealed no evidence of significant rashes, suspicious appearing nevi or other concerning lesions. - Labs CBC & Chem 7: 12/30/21 05:47 12/30/21 05:47 Labs: Abnormal Lab Results - Last 24 Hours (Table) 12/29/21 12/29/21 12/29/21 Range/Units 16:36 16:38 21:21 RBC (4.40-5.60) X 10*6/uL Hgb (13.0-17.0) g/dL Hct (39.6-50.0) % MCHC (32.0-37.0) g/dL RDW (11.5-14.5) % Plt Count (140-440) X 10*3/uL MPV (9.5-12.2) fL Immature Gran # (0.00-0.04) X 10*3/uL D-Dimer 0.84 H (<0.60) mg/L FEU Carbon Dioxide (22-30) mmol/L BUN (9-20) mg/dL Creatinine (0.66-1.25) mg/dL Glucose (74-99) mg/dL POC Glucose (mg/dL) 156 H 220 H (75-99) mg/dL ALT (4-49) U/L 12/30/21 12/30/21 12/30/21 Range/Units 05:47 05:47 07:02 RBC 4.15 L (4.40-5.60) X 10*6/uL Hgb 11.4 L (13.0-17.0) g/dL Hct 36.8 L (39.6-50.0) % MCHC 31.0 L (32.0-37.0) g/dL RDW 15.0 H (11.5-14.5) % Plt Count 139 L (140-440) X 10*3/uL MPV 9.0 L (9.5-12.2) fL Immature Gran # 0.20 H (0.00-0.04) X 10*3/uL D-Dimer (<0.60) mg/L FEU Carbon Dioxide 21 L (22-30) mmol/L BUN 52 H (9-20) mg/dL Creatinine 1.86 H (0.66-1.25) mg/dL Glucose 143 H (74-99) mg/dL POC Glucose (mg/dL) 150 H (75-99) mg/dL ALT 61 H (4-49) U/L 12/30/21 Range/Units 12:17 RBC (4.40-5.60) X 10*6/uL Hgb (13.0-17.0) g/dL Hct (39.6-50.0) % MCHC (32.0-37.0) g/dL RDW (11.5-14.5) % Plt Count (140-440) X 10*3/uL MPV (9.5-12.2) fL Immature Gran # (0.00-0.04) X 10*3/uL D-Dimer (<0.60) mg/L FEU Carbon Dioxide (22-30) mmol/L BUN (9-20) mg/dL Creatinine (0.66-1.25) mg/dL Glucose (74-99) mg/dL POC Glucose (mg/dL) 213 H (75-99) mg/dL ALT (4-49) U/L Assessment and Plan Plan: 1 shortness of breath/nonspecific right-sided chest chest tightness described more so than external muscle cramp. No clear pulmonary cause for shortness of breath. D-dimer is low. Chest x-rays clear. No signs of any significant bronchospasm or wheezing. The patient clinically remains stable. 2 coronary artery disease. The patient had symptomatically CAD the patient underwent coronary artery bypass surgery with HONG to LAD back in September 2021. The patient is post four-vessel bypass surgery. 3 known history of COPD with an FEV1 of 62% of predicted at baseline. The patient is maintained on Symbicort on outpatient basis 4 Essential hypertension. 5 Hyperlipidemia. 6 Diabetes mellitus. The patient has a HbA1c of 6.3%, insulin drip has been discontinued and the patient is currently on Levemir insulin 20 units plus a sliding scale coverage. 7 chronic stage III kidney disease, stable creatinine 8 Sleep apnea syndrome. not utilizing CPAP therapy. Body mass index is 21.8 9 History of anemia. 10 gout 11 active for COVID 19 including booster shot Plan Monitor the patient here in the hospital for another 24 hours currently on room air 02 Continue Symbicort Obtain a baseline echocardiogram We'll follow
[2021-12-30 16:33] LABS: Glucose,Whole Blood 217 mg/dL (75-99)
[2021-12-30 16:54] VITALS: BP 144/89; PULSE 76; RESP 18; TEMP 97.9
--- NOTE | 2021-12-30 19:36 | ECHOF ---
Referral Reason:post CABG, chest pain/sob MEASUREMENTS -------- HEIGHT: 157.5 cm WEIGHT: 131.1 kg BP: RVIDd: 3.1 cm (< 3.3) FINDINGS -------- Sinus rhythm. This was a technically adequate study. Morbid Obesity Limited Echo for post cabg: Echo done . Overall left ventricular systolic function is normal with, an EF between 55 - 60 %. The right ventricle is normal in size. The left atrial size is normal. The right atrial size is normal. The aortic valve is trileaflet, and appears structurally normal. No aortic stenosis or regurgitation. The mitral valve is normal. Mild mitral regurgitation is present. The tricuspid valve appears structurally normal. Mild tricuspid regurgitation present. Right vent ricular systolic pressure is normal at < 35 mmHg. The pulmonic valve was not well visualized. There is no pericardial effusion. CONCLUSIONS -------- 1. Morbid Obesity 2. Limited Echo for post cabg: Echo done 11/03/21. 3. Overall left ventricular systolic function is normal with, an EF between 55 - 60 %. 4. The left atrial size is normal. 5. The right atrial size is normal. 6. The aortic valve is trileaflet, and appears structurally normal. No aortic stenosis or regurgitati on. 7. Mild mitral regurgitation is present. 8. Mild tricuspid regurgitation present. 9. There is no pericardial effusion. MANAGER ROOM: Joana Lr RDCS
--- NOTE | 2021-12-31 06:58 | DS ---
DISCHARGE SUMMARY CHIEF COMPLAINT: Shortness of breath. HISTORY OF PRESENT ILLNESS AND PHYSICAL EXAMINATION: Details of this man's history and physical can be found in the initial workup. LABORATORY STUDIES: While he was in the hospital, he had laboratory studies, details of which can be found in the laboratory section of his chart. COURSE IN THE HOSPITAL: After admission, he was placed on bedrest and started on intravenous fluids and diuretics. BNP was slightly elevated. Troponin was up slightly on the single track. He was seen by Cardiology and the echocardiogram was repeated. He was stable and it was felt he could be discharged on the fifth. He will go home on his usual activity, diet and medication and will not be on Cozaar because he will be on Entresto. He will be followed up in 2 days. FINAL DIAGNOSES: 1. Acute congestive heart failure. 2. Chronic congestive heart failure, systolic. 3. Diabetes mellitus. 4. Obesity. OPERATIONS: None. CONSULTATIONS: Cardiology. He is improved. MMCARLOS / NANCIE: [id number] /
== END 2021-12-30 18:41 | disposition home or self-care (01) ==
LOC: EC 22:36 → 6NMEDSUR 12-29 00:54
PROVIDERS: ADMIT Family Medicine; ATTEND Family Medicine
DX: I13.0 Hypertensive heart and chronic kidney disease with heart failure and stage 1 through stage 4 chronic kidney disease, or unspecified chronic kidney disease (principal); I50.21 Acute systolic (congestive) heart failure; I25.2 Old myocardial infarction; E66.01 Morbid (severe) obesity due to excess calories; Z68.41 Body mass index [BMI] 40.0-44.9, adult; I25.10 Atherosclerotic heart disease of native coronary artery without angina pectoris; I48.91 Unspecified atrial fibrillation; R11.2 Nausea with vomiting, unspecified; E11.22 Type 2 diabetes mellitus with diabetic chronic kidney disease; N18.9 Chronic kidney disease, unspecified; Z95.1 Presence of aortocoronary bypass graft; G47.33 Obstructive sleep apnea (adult) (pediatric); J44.9 Chronic obstructive pulmonary disease, unspecified; Z87.891 Personal history of nicotine dependence; E78.5 Hyperlipidemia, unspecified; Z79.899 Other long term (current) drug therapy; F31.9 Bipolar disorder, unspecified; F90.9 Attention-deficit hyperactivity disorder, unspecified type; F41.9 Anxiety disorder, unspecified; F43.10 Post-traumatic stress disorder, unspecified; Z95.5 Presence of coronary angioplasty implant and graft; Z98.890 Other specified postprocedural states; Z82.49 Family history of ischemic heart disease and other diseases of the circulatory system; Z80.1 Family history of malignant neoplasm of trachea, bronchus and lung; Z80.0 Family history of malignant neoplasm of digestive organs; Z83.3 Family history of diabetes mellitus; Z79.84 Long term (current) use of oral hypoglycemic drugs; Z79.82 Long term (current) use of aspirin; Z79.02 Long term (current) use of antithrombotics/antiplatelets; Z79.51 Long term (current) use of inhaled steroids; Z86.14 Personal history of Methicillin resistant Staphylococcus aureus infection
CPT/HCPCS: 99285; 36415; 94640 ×2; 93005; 93308; 85379; 83880; 80053 ×2; 84484 ×2; 85025 ×2; 85610; 85730; 71046; G0378 ×2

== ENCOUNTER 2022-01-12 09:57 | Observation (INO) | payer OTHER ==
[2022-01-12] MEDS ORDERED: NITROGLYCERIN SL TABS 0.4 MG TAB SUBLINGUAL STA (10:12)
[2022-01-12] MEDS ORDERED: ASPIRIN 81 MG PO STA (10:12)
--- NOTE | 2022-01-12 10:15 | ED ---
General Adult HPI - General Chief complaint: Chest Pain Stated complaint: Chest pain Time Seen by Provider: 01/12/22 10:01 Source: patient, EMS, RN notes reviewed Mode of arrival: EMS Limitations: no limitations - History of Present Illness Initial comments: Patient is a pleasant 51-year-old male presenting to the emergency Department with chest discomfort. Onset of symptoms was a half hour ago while walking from the bathroom. Discomfort was 9/10. Occurred discomfort is 4-5/10. Discomfort feels a pressure. Mild associated dyspnea. No nausea. No diaphoresis. Patient does have history of similar symptoms previously associated with cardiac problems. Patient has had previous stents. - Related Data Home Medications Medication Instructions Recorded Confirmed Nitroglycerin Sl Tabs [Nitrostat] 0.4 mg SL Q5M PRN 11/02/21 01/12/22 Aspirin EC [Ecotrin Low Dose] 81 mg PO DAILY 11/10/21 01/12/22 Albuterol Sulfate [Albuterol 2 puff INHALATION RT-QID PRN 11/28/21 01/12/22 Sulfate Hfa] Budesonide/Formoterol Fumarate 2 puff INHALATION RT-BID 11/28/21 01/12/22 [Symbicort 160-4.5 Mcg Inhaler] Clopidogrel [Plavix] 75 mg PO DAILY 12/29/21 01/12/22 Empagliflozin [Jardiance] 10 mg PO DAILY 12/29/21 01/12/22 Sacubitril/Valsartan [Entresto 24 1 tab PO BID 12/29/21 01/12/22 mg-26 mg Tablet] Furosemide [Lasix] 40 mg PO DAILY 01/12/22 01/12/22 Metoprolol Tartrate [Lopressor] 50 mg PO DAILY 01/12/22 01/12/22 Pantoprazole Sodium [Protonix] 40 mg PO DAILY 01/12/22 01/12/22 Previous Rx's Medication Instructions Recorded Acetaminophen Tab [Tylenol] 650 mg PO Q4HR PRN tab 10/14/21 Ascorbic Acid [Vitamin C] 500 mg PO BID-W/MEALS #60 tab 10/14/21 Atorvastatin [Lipitor] 80 mg PO HS #30 tab 10/14/21 Ferrous Sulfate [Iron (65 MG 325 mg PO BID-W/MEALS #60 tab 10/14/21 Elemental)] Potassium Chloride ER [K-Dur 10] 10 meq PO DAILY #30 tab 10/14/21 Sertraline [Zoloft] 50 mg PO DAILY #30 tab 10/14/21 Sodium Bicarbonate Tab 650 mg PO DAILY #30 tab 10/14/21 amLODIPine [Norvasc] 5 mg PO DAILY #30 tab 10/14/21 Allergies Allergy/AdvReac Type Severity Reaction Status Date / Time Penicillins Allergy Anaphylaxis Verified 01/12/22 11:59 spironolactone Allergy Anaphylaxis Verified 01/12/22 11:59 Sulfa (Sulfonamide Allergy Anaphylaxis Verified 01/12/22 11:59 Antibiotics) Review of Systems ROS Statement: Those systems with pertinent positive or pertinent negative responses have been documented in the HPI. ROS Other: All systems not noted in ROS Statement are negative. Constitutional: Denies: fever Eyes: Denies: eye pain ENT: Denies: ear pain Respiratory: Reports: as per HPI. Denies: cough Cardiovascular: Reports: as per HPI, chest pain Endocrine: Denies: fatigue Gastrointestinal: Denies: abdominal pain Genitourinary: Denies: dysuria Musculoskeletal: Denies: back pain Skin: Denies: rash Neurological: Denies: weakness Past Medical History Past Medical History: Atrial Fibrillation, Asthma, Coronary Artery Disease (CAD), Diabetes Mellitus, GERD/Reflux, Hyperlipidemia, Hypertension, Myocardial Infarction ([place]), Renal Disease, Sleep Apnea/CPAP/BIPAP Additional Past Medical History / Comment(s): Morbid obesity Last Myocardial Infarction Date:: 2008 History of Any Multi-Drug Resistant Organisms: MRSA Date of last positivie culture/infection: 10/2020 MDRO Source:: Right eye Past Surgical History: Adenoidectomy, Coronary Bypass/CABG, Heart Catheteriz ation With Stent, Tonsillectomy Additional Past Surgical History / Comment(s): cardiac stents x 5, quad bipass open heart 10/07/2021 Past Anesthesia/Blood Transfusion Reactions: Postoperative Nausea & Vomiting (PONV) Date of Last Stent Placement:: 2008 Past Psychological History: ADD/ADHD, Anxiety, Bipolar, Depression, PTSD Smoking Status: Former smoker Past Alcohol Use History: None Reported Past Drug Use History: None Reported - Past Family History Father Family Medical History: Cancer, Coronary Artery Disease (CAD), Myocardial Infarction ([place]) Additional Family Medical History / Comment(s): at age 68 from mesothelioma, diagnosis of heart disease age of 60 Mother Family Medical History: Cancer, Coronary Artery Disease (CAD), Diabetes Mellitus, Liver Disease, Myocardial Infarction ([place]) Additional Family Medical History / Comment(s): from liver cancer, diagnosed with heart disease before the age of 60 General Exam Limitations: no limitations General appearance: alert, in no apparent distress Head exam: Present: normocephalic Eye exam: Present: normal appearance Neck exam: Present: normal inspection Respiratory exam: Present: normal lung sounds bilaterally. Absent: chest wall tenderness Cardiovascular Exam: Present: regular rate, normal rhythm, normal heart sounds Expanded Peripheral pulses: 2+: Radial (R), Radial (L), Posterior Tibialis (R), Posterior Tibialis (L), Dorsalis Pedis (R), Dorsalis Pedis (L) GI/Abdominal exam: Present: soft. Absent: tenderness Extremities exam: Present: normal inspection, other (Patient has ankle tether). Absent: pedal edema, calf tenderness Neurological exam: Present: alert Psychiatric exam: Present: normal affect, normal mood Skin exam: Present: normal color Course Vital Signs 01/12/22 01/12/22 01/12/22 10:00 10:25 11:59 Temperature 98.7 F Pulse Rate 86 82 80 Respiratory 18 18 18 Rate Blood Pressure 135/82 135/101 122/65 O2 Sat by Pulse 97 98 98 Oximetry EKG Findings - EKG Comments: EKG Findings:: Sinus rhythm 77. VT 170. QRS 11. QT 388. QTC 419. Left axis. Q wave in lead III. Nonspecific ST change. Lateral T wave inversion. Previous EKG reviewed with similar findings. Medical Decision Making - Medical Decision Making Patient reevaluated. Patient updated on results and plan. Case discussed with Dr. Hansen, who will admit his patient. No consults at this time. He is family with this patient and has seen him recently. - Lab Data Result diagrams: 01/12/22 10:18 01/12/22 10:18 Lab Results 01/12/22 01/12/22 01/12/22 Range/Units 10:18 10:18 10:18 WBC 5.3 (3.8-10.6) k/uL RBC 4.34 (4.30-5.90) m/uL Hgb 12.3 L (13.0-17.5) gm/dL Hct 38.4 L (39.0-53.0) % MCV 88.6 (80.0-100.0) fL MCH 28.4 (25.0-35.0) pg MCHC 32.0 (31.0-37.0) g/dL RDW 15.3 (11.5-15.5) % Plt Count 175 (150-450) k/uL MPV 6.9 Neutrophils % 69 % Lymphocytes % 19 % Monocytes % 6 % Eosinophils % 3 % Basophils % 1 % Neutrophils # 3.7 (1.3-7.7) k/uL Lymphocytes # 1.0 (1.0-4.8) k/uL Monocytes # 0.3 (0-1.0) k/uL Eosinophils # 0.2 (0-0.7) k/uL Basophils # 0.0 (0-0.2) k/uL PT 9.8 (9.0-12.0) sec INR 0.9 (<1.2) APTT 19.4 L (22.0-30.0) sec D-Dimer 1.70 H (<0.60) mg/L FEU Sodium 140 (137-145) mmol/L Potassium 4.3 (3.5-5.1) mmol/L Chloride 107 (98-107) mmol/L Carbon Dioxide 24 (22-30) mmol/L Anion Gap 9 mmol/L BUN 45 H (9-20) mg/dL Creatinine 2.05 H (0.66-1.25) mg/dL Est GFR (CKD-EPI)AfAm 42 (>60 ml/min/1.73 sqM) Est GFR (CKD-EPI)NonAf 36 (>60 ml/min/1.73 sqM) Glucose 196 H (74-99) mg/dL Calcium 8.6 (8.4-10.2) mg/dL Magnesium 1.9 (1.6-2.3) mg/dL Total Bilirubin 0.6 (0.2-1.3) mg/dL AST 19 (17-59) U/L ALT 14 (4-49) U/L Alkaline Phosphatase 79 (38-126) U/L Troponin I (0.000-0.034) ng/mL NT-Pro-B Natriuret Pep pg/mL Total Protein 7.0 (6.3-8.2) g/dL Albumin 3.8 (3.5-5.0) g/dL 01/12/22 01/12/22 Range/Units 10:18 10:18 WBC (3.8-10.6) k/uL RBC (4.30-5.90) m/uL Hgb (13.0-17.5) gm/dL Hct (39.0-53.0) % MCV (80.0-100.0) fL MCH (25.0-35.0) pg MCHC (31.0-37.0) g/dL RDW (11.5-15.5) % Plt Count (150-450) k/uL MPV Neutrophils % % Lymphocytes % % Monocytes % % Eosinophils % % Basophils % % Neutrophils # (1.3-7.7) k/uL Lymphocytes # (1.0-4.8) k/uL Monocytes # (0-1.0) k/uL Eosinophils # (0-0.7) k/uL Basophils # (0-0.2) k/uL PT (9.0-12.0) sec INR (<1.2) APTT (22.0-30.0) sec D-Dimer (<0.60) mg/L FEU Sodium (137-145) mmol/L Potassium (3.5-5.1) mmol/L Chloride (98-107) mmol/L Carbon Dioxide (22-30) mmol/L Anion Gap mmol/L BUN (9-20) mg/dL Creatinine (0.66-1.25) mg/dL Est GFR (CKD-EPI)AfAm (>60 ml/min/1.73 sqM) Est GFR (CKD-EPI)NonAf (>60 ml/min/1.73 sqM) Glucose (74-99) mg/dL Calcium (8.4-10.2) mg/dL Magnesium (1.6-2.3) mg/dL Total Bilirubin (0.2-1.3) mg/dL AST (17-59) U/L ALT (4-49) U/L Alkaline Phosphatase (38-126) U/L Troponin I 0.020 (0.000-0.034) ng/mL NT-Pro-B Natriuret Pep 348 pg/mL Total Protein (6.3-8.2) g/dL Albumin (3.5-5.0) g/dL - Radiology Data Radiology results: image reviewed (Chest x-ray shows no acute process.) Disposition Clinical Impression: Chest pain Disposition: ADMITTED IP TO THIS HOSP Is patient prescribed a controlled substance at d/c from ED?: No Referrals: Edwin Hansen MD [Primary Care Provider] - 1-2 days Time of Disposition: 12:08
[2022-01-12 10:34] LABS: Basophils % (A) 1 %; Eosinophils # (A) 0.2 k/uL (0-0.7); Eosinophils % (A) 3 %; HCT 38.4 % (39.0-53.0); HGB 12.3 gm/dL (13.0-17.5); Lymphocytes % (A) 19 %; MCH 28.4 pg (25.0-35.0); MCV 88.6 fL (80.0-100.0); Mean Platelet Volume 6.9; Monocytes # (A) 0.3 k/uL (0-1.0); Monocytes % (A) 6 %; Neutrophils # (A) 3.7 k/uL (1.3-7.7); Neutrophils % (A) 69 %; Platelet Count 175 k/uL (150-450); RBC 4.34 m/uL (4.30-5.90); RDW 15.3 % (11.5-15.5); WBC 5.3 k/uL (3.8-10.6)
--- NOTE | 2022-01-12 10:37 | XR ---
EXAMINATION TYPE: XR chest 2V DATE OF EXAM: 01/12/2022 COMPARISON: 12/29/2021 HISTORY: Shortness of breath TECHNIQUE: Frontal and lateral views of the chest are obtained. FINDINGS: Scattered senescent parenchymal changes noted. Hyperinflation compatible with COPD. No evidence for infiltrate. No evidence for atelectasis. Heart size is stable. Mediastinal structures are stable and grossly unremarkable. No evidence for hilar prominence. Degenerative changes dorsal spine. IMPRESSION: 1. No evidence for acute pulmonary disease.
[2022-01-12 10:48] LABS: Albumin 3.8 g/dL (3.5-5.0); Calcium 8.6 mg/dL (8.4-10.2); Magnesium 1.9 mg/dL (1.6-2.3); Potassium 4.3 mmol/L (3.5-5.1); Total Bilirubin 0.6 mg/dL (0.2-1.3)
[2022-01-12 10:56] LABS: INR 0.9 (<1.2); Prothrombin Time 9.8 sec (9.0-12.0)
[2022-01-12 11:08] LABS: Partial Thromboplastin Time 19.4 sec (22.0-30.0)
[2022-01-12] MEDS ORDERED: NITROGLYCERIN SL TABS 0.4 MG TAB SUBLINGUAL PRN (12:08)
[2022-01-12] MEDS ORDERED: ACETAMINOPHEN TAB 325 MG TAB PO PRN (12:39)
[2022-01-12] MEDS: NITROGLYCERIN OINT 1 INCH/GM PACKET TOPICAL SCH (18:15)
[2022-01-12] MEDS: FERROUS SULFATE 325 MG TAB PO SCH (18:17)
--- NOTE | 2022-01-12 18:42 | NM ---
EXAMINATION TYPE: NM pul vent and perfuse DATE OF EXAM: 01/12/2022 COMPARISON: Chest x-ray same date HISTORY: Chest pain with elevated d-dimer, difficulty breathing and cough TECHNIQUE: Utilizing inhalation of 63.7 mCi Tc 99m DTPA aerosol and intravenous injection of 4.78 mC i of Tc 99m MAA, ventilation and perfusion images are acquired post injection in multiple projections . FINDINGS: Normal radiotracer distribution is noted in the lungs. There is no evidence of mismatched defects. IMPRESSION: Low probability for pulmonary embolus
[2022-01-12] MEDS: SACUBITRIL/VALSARTAN 24 MG-26 MG TABLET PO SCH (19:50)
[2022-01-12] MEDS: ATORVASTATIN 80 MG TAB PO SCH (19:50)
[2022-01-12] MEDS: SYMBICORT 160-4.5 MCG INHALER INHALATION SCH (20:11)
--- NOTE | 2022-01-12 23:19 | HP ---
HISTORY AND PHYSICAL CHIEF COMPLAINT: Chest pain. HISTORY OF PRESENT ILLNESS: This is another admission for this gentleman who had a coronary artery bypass graft in September. He has been in and out of the hospital multiple times in the last several weeks with complaints of chest pain. One time he came in and was short of breath and this was determined to be due to mild congestive heart failure. He just went to [facility] last week with a complaint of a possible stroke or TIA. He had some dysesthesias in the left arm, but nothing else to go along with TIA or stroke. All of his studies were negative. He has been having some numbness in his left arm and thumb since his open-heart surgery. He came back in this time again for chest pain. Studies in the ER were normal. REVIEW OF SYSTEMS: He has had no orthopnea, chills, fever, hemoptysis, diaphoresis, etc. Past medical history, family history, and personal and social histories are all unchanged. PHYSICAL EXAMINATION: Blood pressure is 135/71 with a pulse of 74, respirations of 26, and he is afebrile. In general he appeared to be overweight and in no acute distress. Skin color is normal. Skin is warm and dry. Lymph nodes are not enlarged. Head, ears, eyes, nose, mouth and throat are otherwise unremarkable and normal. Neck veins are not distended. Chest is clear. There are no rales. Cardiac exam is normal with sinus rhythm. The abdomen is protuberant, soft and nontender without masses or visceromegaly. Extremities are normal. Neurologically he is intact. He is admitted to the hospital with diagnoses: 1. Chest pain. 2. Status post coronary artery bypass grafting. 3. Recent episode of dysesthesias in the left upper extremity. 4. Type 2 diabetes. PLAN: 1. Bedrest. 2. IV fluids. 3. Repeat cardiac enzymes. 4. Reassure. MMODL / IJN: [id number] /
[2022-01-13] MEDS: NITROGLYCERIN OINT 1 INCH/GM PACKET TOPICAL SCH ×5 (00:19→23:09)
[2022-01-13] MEDS ORDERED: AMINOPHYLLINE 500 MG/20 ML VIAL IV PRN ×2 (07:00→09:40)
[2022-01-13] MEDS ORDERED: CAFFEINE CITRATE 60 MG/3 ML VIAL IV PRN ×2 (07:00→09:40)
[2022-01-13] MEDS ORDERED: REGADENOSON 0.4 MG/5 ML SYRINGE IV PRN ×2 (07:00→09:40)
[2022-01-13] MEDS: POTASSIUM CHLORIDE ER 10 MEQ TAB.ER.PRT PO SCH (08:37)
[2022-01-13] MEDS: PANTOPRAZOLE 40 MG TABLET PO SCH (08:37)
[2022-01-13] MEDS: amLODIPine 5 MG TAB PO SCH (08:37)
[2022-01-13] MEDS: FERROUS SULFATE 325 MG TAB PO SCH ×2 (08:37→17:52)
[2022-01-13] MEDS: FUROSEMIDE 40 MG TAB PO SCH (08:37)
[2022-01-13] MEDS: ASPIRIN 81 MG PO SCH (08:37)
[2022-01-13] MEDS: SERTRALINE 50 MG TAB PO SCH (08:37)
[2022-01-13] MEDS: SACUBITRIL/VALSARTAN 24 MG-26 MG TABLET PO SCH ×2 (08:38→20:13)
[2022-01-13] MEDS: SYMBICORT 160-4.5 MCG INHALER INHALATION SCH ×2 (08:45→19:03)
[2022-01-13] MEDS ORDERED: ASPIRIN 325 MG TAB PO SCH (09:00)
[2022-01-13 09:23] LABS: Chol/HDL Ratio 5.43 Ratio; LDL Cholesterol,Calculated 102.5 mg/dL (0.0-131.0)
[2022-01-13] MEDS: NON FORMULARY DRUG (Empagliflozin [Jardiance] 10 MG Tablet) PO SCH (09:42)
[2022-01-13] MEDS: METOPROLOL TARTRATE 50 MG TAB PO SCH (09:53)
[2022-01-13] MEDS: CLOPIDOGREL 75 MG TAB PO SCH (09:53)
[2022-01-13] MEDS: SODIUM BICARBONATE TAB 650 MG TAB PO SCH (09:56)
--- NOTE | 2022-01-13 10:47 | P.CRDCN ---
History of Present Illness History of present illness: Patient is a pleasant 51-year-old male with history of coronary artery disease with recent 4 vessel CABG on 10/07/2021, post operative atrial fibrillation, prior myocardial infarction and stenting in 2008, hypertension, hyperlipidemia, diabetes mellitus, COPD, obstructive sleep apnea, anemia, tobacco abuse. He follows with Dr. Bello. He underwent cardiac catheterization in September 2021 and was found to have chronically occluded RCA severe obstructive disease in the LAD and the left circumflex. He subsequently underwent CABG with HONG to the LAD and radial to the ramus saphenous to the second obtuse marginal branch and saphenous to the PDA. He underwent a repeat echocardiogram in October 2021 that showed a normal systolic function. We have been consulted for chest pain. He presents to the ER with complaints of constant chest pain and dyspnea. It started yesterday when walking from the bathroom to his room at home. Left sided. Non-radiating, Non-exertional. No specific aggravating factors. Relieved by nitro. He states this is similar to when he had his CABG in September 2021. He had some associated lightheadedness and mild dyspnea. No associated dizziness, syncope, near-syncope, nausea, vomiting, diaphoresis. Currently he is chest pain free. DIAGNOSTICS -Labs: Troponin negative 3, sodium 140, potassium 4.3, BUN 45, serum creatine 2.05, magnesium 1.9, proBNP 348, d-dimer 1.7, WBC 5.3, hemoglobin 12.3, platelets 175 -EKG shows sinus mechanism with borderline left axis deviation and T-wave inversions in the anterior- lateral leads, no change compared to his prior EKG. EKG this morning T wave inversions in anterior leads more prominent. -Chest x-ray shows no acute infiltrate -VQ scan with low probability for pulmonary embolism -Recent echocardiogram 12/30/2021 revealed EF 5560%, mild mitral regurgitation, tricuspid regurgitation -His medication are home include amlodipine 5 mg daily, metoprolol succinate 50 mg daily, Entresto 24-26mg daily, Lasix 40 mg twice a day, Jardiance 10 mg daily, Plavix 75 mg daily, aspirin once a day, Lipitor 80 mg daily REVIEW OF SYSTEMS At the time of my exam: CONSTITUTIONAL: Denies fever or chills. CARDIOVASCULAR: +chest pain,Denies shortness of breath, orthopnea, PND or palpitations. RESPIRATORY: Denies cough. GASTROINTESTINAL: Denies abdominal pain, diarrhea, constipation, nausea or vomiting. MUSCULOSKELETAL: Denies myalgias. NEUROLOGIC: Denies numbness, tingling, headacbe or weakness. ENDOCRINE: Denies fatigue, weight change, polydipsia or polyurina. GENITOURINARY: Denies burning, hematuria or urgency with micturation. HEMATOLOGIC: Denies history of anemia or bleeding. PHYSICAL EXAMINATION Blood pressure 132/81, heart rate 75, afebrile, saturations 96% on room air CONSTITUTIONAL: No apparent distress. HEENT: Head is normocephalic. Pupils are equal, round. Sclerae anicteric. Mucous membranes of the mouth are moist. No JVD. No carotid bruit. CHEST EXAMINATION: Lungs are clear to auscultation. No chest wall tenderness is noted on palpation or with deep breathing. HEART EXAMINATION: Regular rate and rhythm. S1, S2 heard. No murmurs, gallops or rub. ABDOMEN: Soft, nontender. Positive bowel sounds. EXTREMITIES: 2+ peripheral pulses, no lower extremity edema and no calf tenderness. NEUROLOGIC EXAMINATION: Patient is awake, alert and oriented x3. ASSESSMENT Chest pain, atypical, acute coronary syndrome has been ruled out Triple-vessel diffuse coronary artery disease with previous myocardial inf arction status post four-vessel CABG 09/2021, and previous stenting 5, most recently 2008 History of COPD Hypertension Type 2 Diabetes Hyperlipidemia Chronic kidney disease stage III Former tobacco use, recently quit in September 2021 Obstructive sleep apnea currently not using CPAP PLAN Recommend Lexiscan stress test. However, due to patient undergoing VQ scan yesterday, we have to wait additional 24 hours. We will reschedule Lexiscan for tomorrow 01/14. Continue home cardiac medications NPO after midnight Further recommendations based on clinical course Nurse practitioner note has been reviewed by physician. Signing provider agrees with the documented findings, assessment, and plan of care. Past Medical History Past Medical History: Atrial Fibrillation, Asthma, Coronary Artery Disease (CAD), Heart Failure, COPD, Diabetes Mellitus, GERD/Reflux, Hyperlipidemia, Hypertension, Myocardial Infarction ([place]), Renal Disease, Sleep Apnea/CPAP/BIPAP Additional Past Medical History / Comment(s): Pt recently admitted to [facility] on 12/29/21 with CHF. Other hx: NIDDM type II, CKD stage III, chronic anemia, CHLOE without device d/t insurance issues, mild COPD, ATKA bilateral ears, gout. Last Myocardial Infarction Date:: 2008 History of Any Multi-Drug Resistant Organisms: MRSA Date of last positivie culture/infection: 10/2020 MDRO Source:: Right eye Past Surgical History: Adenoidectomy, Coronary Bypass/CABG, Heart Catheterization, Heart Catheterization With Stent, Tonsillectomy Additional Past Surgical History / Comment(s): cardiac stents x 5, quad bipass open heart 10/07/2021 Past Anesthesia/Blood Transfusion Reactions: Postoperative Nausea & Vomiting (PONV) Date of Last Stent Placement:: 2008 Smoking Status: Former smoker - Past Family History Father Family Medical History: Cancer, Coronary Artery Disease (CAD), Myocardial Infarction ([place]) Additional Family Medical History / Comment(s): at age 68 from meso thelioma, diagnosis of heart disease age of 60 Mother Family Medical History: Cancer, Coronary Artery Disease (CAD), Diabetes Mellitus, Liver Disease, Myocardial Infarction ([place]) Additional Family Medical History / Comment(s): from liver cancer, diagnosed with heart disease before the age of 60 Medications and Allergies Home Medications Medication Instructions Recorded Confirmed Type Acetaminophen Tab [Tylenol] 650 mg PO Q4HR PRN tab 10/14/21 01/12/22 Rx Ascorbic Acid [Vitamin C] 500 mg PO BID-W/MEALS #60 tab 10/14/21 01/12/22 Rx Atorvastatin [Lipitor] 80 mg PO HS #30 tab 10/14/21 01/12/22 Rx Ferrous Sulfate [Iron (65 MG 325 mg PO BID-W/MEALS #60 tab 10/14/21 01/12/22 Rx Elemental)] Potassium Chloride ER [K-Dur 10] 10 meq PO DAILY #30 tab 10/14/21 01/12/22 Rx Sertraline [Zoloft] 50 mg PO DAILY #30 tab 10/14/21 01/12/22 Rx Sodium Bicarbonate Tab 650 mg PO DAILY #30 tab 10/14/21 01/12/22 Rx amLODIPine [Norvasc] 5 mg PO DAILY #30 tab 10/14/21 01/12/22 Rx Nitroglycerin Sl Tabs [Nitrostat] 0.4 mg SL Q5M PRN 11/02/21 01/12/22 History Aspirin EC [Ecotrin Low Dose] 81 mg PO DAILY 02/14/22 04/18/22 History Albuterol Sulfate [Albuterol 2 puff INHALATION RT-QID PRN 11/28/21 01/12/22 History Sulfate Hfa] Budesonide/Formoterol Fumarate 2 puff INHALATION RT-BID 11/28/21 01/12/22 History [Symbicort 160-4.5 Mcg Inhaler] Clopidogrel [Plavix] 75 mg PO DAILY 12/29/21 01/12/22 History Empagliflozin [Jardiance] 10 mg PO DAILY 12/29/21 01/12/22 History Sacubitril/Valsartan [Entresto 24 1 tab PO BID 12/29/21 01/12/22 History mg-26 mg Tablet] Furosemide [Lasix] 40 mg PO DAILY 01/12/22 01/12/22 History Metoprolol Tartrate [Lopressor] 50 mg PO DAILY 01/12/22 01/12/22 History Pantoprazole Sodium [Protonix] 40 mg PO DAILY 01/12/22 01/12/22 History Allergies Allergy/AdvReac Type Severity Reaction Status Date / Time Penicillins Allergy Anaphylaxis Verified 01/12/22 17:48 spironolactone Allergy Anaphylaxis Verified 01/12/22 17:48 Sulfa (Sulfonamide Allergy Anaphylaxis Verified 01/12/22 17:48 Antibiotics) Physical Exam Vitals: Vital Signs Temp Pulse Pulse Pulse Resp BP BP 01/13/22 07:00 97.6 F 75 19 132/81 01/13/22 00:58 97.8 F 83 18 01/12/22 19:41 98.0 F 77 20 01/12/22 17:15 97.9 F 80 18 01/12/22 11:59 80 18 122/65 01/12/22 10:25 82 18 135/101 01/12/22 10:00 98.7 F 86 18 135/82 BP Pulse Ox 01/13/22 07:00 96 01/13/22 00:58 138/94 97 01/12/22 19:41 122/80 97 01/12/22 17:15 142/97 98 01/12/22 11:59 98 01/12/22 10:25 98 01/12/22 10:00 97 Intake and Output 01/12/22 01/13/22 01/13/22 22:59 06:59 14:59 Intake Total 444 Balance 444 Intake: Oral 444 Other: Voiding Method Toilet Toilet # Voids 2 2 Weight 127.006 kg Results 01/12/22 10:18 01/12/22 10:18 Cardiac Enzymes 01/12/22 01/12/22 01/12/22 Range/Units 10:18 10:18 12:17 AST 19 (17-59) U/L Troponin I 0.020 0.020 (0.000-0.034) ng/mL 01/12/22 Range/Units 18:59 AST (17-59) U/L Troponin I 0.030 (0.000-0.034) ng/mL Coagulation 01/12/22 Range/Units 10:18 PT 9.8 (9.0-12.0) sec APTT 19.4 L (22.0-30.0) sec CBC 01/12/22 Range/Units 10:18 WBC 5.3 (3.8-10.6) k/uL RBC 4.34 (4.30-5.90) m/uL Hgb 12.3 L (13.0-17.5) gm/dL Hct 38.4 L (39.0-53.0) % Plt Count 175 (150-450) k/uL Comprehensive Metabolic Panel 01/12/22 Range/Units 10:18 Sodium 140 (137-145) mmol/L Potassium 4.3 (3.5-5.1) mmol/L Chloride 107 (98-107) mmol/L Carbon Dioxide 24 (22-30) mmol/L BUN 45 H (9-20) mg/dL Creatinine 2.05 H (0.66-1.25) mg/dL Glucose 196 H (74-99) mg/dL Calcium 8.6 (8.4-10.2) mg/dL AST 19 (17-59) U/L ALT 14 (4-49) U/L Alkaline Phosphatase 79 (38-126) U/L Total Protein 7.0 (6.3-8.2) g/dL Albumin 3.8 (3.5-5.0) g/dL Current Medications Generic Name Dose Route Start Last Admin Trade Name Freq PRN Reason Stop Dose Admin Acetaminophen 650 mg 01/12/22 12:39 Acetaminophen Tab 325 Mg Tab PO Q4HR PRN Fever and/ or Pain Amlodipine Besylate 5 mg 01/13/22 09:00 Amlodipine 5 Mg Tab PO DAILY [facility] Aspirin 81 mg 01/13/22 09:00 Aspirin 81 Mg PO DAILY [facility] Atorvastatin Calcium 80 mg 01/12/22 21:00 01/12/22 19:50 Atorvastatin 80 Mg Tab PO 80 mg HS [facility] Administration Budesonide/Formoterol Fumarate 2 puff 01/12/22 20:00 01/12/22 20:11 Symbicort 160-4.5 Mcg Inhaler INHALATION 2 puff RT-BID [facility] Administration Clopidogrel Bisulfate 75 mg 01/13/22 09:00 Clopidogrel 75 Mg Tab PO DAILY [facility] Ferrous Sulfate 325 mg 01/12/22 17:30 01/12/22 18:17 Ferrous Sulfate 325 Mg Tab PO 325 mg BID-W/MEALS [facility] Administration Furosemide 40 mg 01/13/22 09:00 Furosemide 40 Mg Tab PO DAILY [facility] Metoprolol Tartrate 50 mg 01/13/22 09:00 Metoprolol Tartrate 50 Mg Tab PO DAILY [facility] Nitroglycerin 0.4 mg 01/12/22 12:08 Nitroglycerin Sl Tabs 0.4 Mg Tab SUBLINGUAL Q5M PRN Chest Pain Nitroglycerin 1 inch 01/12/22 18:00 01/13/22 04:16 Nitroglycerin Oint 1 Inch/Gm Packet TOPICAL 1 inch Q6HR [facility] Administration Non-Formulary Medication 10 mg 01/13/22 09:00 Empagliflozin [Jardiance] PO DAILY [facility] Pantoprazole Sodium 40 mg 01/13/22 07:30 Pantoprazole 40 Mg Tablet PO AC-BRKFST [facility] Potassium Chloride 10 meq 01/13/22 09:00 Potassium Chloride Er 10 Meq Tab.Er.Prt PO DAILY [facility] Sacubitril/Valsartan 1 each 01/12/22 21:00 01/12/22 19:50 Sacubitril/Valsartan 24 Mg-26 Mg Tablet PO 1 each BID [facility] Administration Sertraline HCl 50 mg 01/13/22 09:00 Sertraline 50 Mg Tab PO DAILY [facility] Sodium Bicarbonate 650 mg 01/13/22 09:00 Sodium Bicarbonate Tab 650 Mg Tab PO DAILY [facility] Sodium Chloride 10 ml 01/12/22 21:00 01/12/22 19:51 Sodium Chloride 0.9% Flush 10 Ml Syringe IV 10 ml BID [facility] Administration Intake and Output 01/12/22 01/13/22 01/13/22 22:59 06:59 14:59 Intake Total 444 Balance 444 Intake: Oral 444 Other: Voiding Method Toilet Toilet # Voids 2 2 Weight 127.006 kg 01/12/22 10:18 01/12/22 10:18
--- NOTE | 2022-01-13 20:05 | PN ---
PROGRESS NOTE CHIEF COMPLAINT: Chest pain. HISTORY OF PRESENT ILLNESS: This gentleman is still having pain. He describes it as a heaviness. It is not necessarily related to exertion. He has had no nausea, vomiting, diaphoresis, shortness of breath, syncope, palpitations, etc. PHYSICAL EXAMINATION: His chest is clear. Cardiac exam is normal. Abdomen is soft, nontender. IMPRESSION: 1. Chest pain. 2. Coronary artery disease, status post coronary artery bypass grafting. 3. Congestive heart failure. PLAN: 1. Progress activity and diet. 2. Troponins are normal. 3. Probably discharge either today or tomorrow. MMODL / IJN: [id number] /
[2022-01-13] MEDS: ATORVASTATIN 80 MG TAB PO SCH (20:13)
[2022-01-14] MEDS: NITROGLYCERIN OINT 1 INCH/GM PACKET TOPICAL SCH ×3 (05:14→12:54)
[2022-01-14 07:28] VITALS: RESP 17
[2022-01-14] MEDS: SYMBICORT 160-4.5 MCG INHALER INHALATION SCH (08:43)
[2022-01-14] MEDS ORDERED: REGADENOSON 0.4 MG/5 ML SYRINGE IV ONE (09:01)
[2022-01-14] MEDS: NON FORMULARY DRUG (Empagliflozin [Jardiance] 10 MG Tablet) PO SCH (09:55)
--- NOTE | 2022-01-14 10:18 | P.PN ---
Subjective Patient is a pleasant 51-year-old male with history of coronary artery disease with recent 4 vessel CABG on 10/07/2021, post operative atrial fibrillation, prior myocardial infarction and stenting in 2008, hypertension, hyperlipidemia, diabetes mellitus, COPD, obstructive sleep apnea, anemia, tobacco abuse. He follows with Dr. Bello. He underwent cardiac catheterization in September 2021 and was found to have chronically occluded RCA severe obstructive disease in the LAD and the left circumflex. He subsequently underwent CABG with HONG to the LAD and radial to the ramus saphenous to the second obtuse marginal branch and saphenous to the PDA. He underwent a repeat echocardiogram in October 2021 that showed a normal systolic function. We have been consulted for chest pain. He presents to the ER with complaints of constant chest pain and dyspnea. It started yesterday when walking from the bathroom to his room at home. Left sided. Non-radiating, Non-exertional. No specific aggravating factors. Relieved by nitro. He states this is similar to when he had his CABG in September 2021. He had some associated lightheadedness and mild dyspnea. No associated dizziness, syncope, near-syncope, nausea, vomiting, diaphoresis. Currently he is chest pain free. Recent echocardiogram 12/30/2021 revealed EF 5560%, mild mitral regurgitation, tricuspid regurgitation 01/14/2022 Patient seen and examined. No acute distress. Vital signs are stable. No acute events overnight. Telemetry with no acute events, sinus mechanism HR 60s-70s He is currently maintained on amlodipine 5 mg daily, aspirin 80 mg daily, atorvastatin 20 mg nightly, Plavix 75 mg daily, Lasix 40 mg daily, metoprolol titrate 50 mg daily, and Entresto 24-26mg BID. PHYSICAL EXAMINATION Blood pressure CONSTITUTIONAL: No apparent distress. HEENT: Neck Supple. No JVD. No carotid bruit. CHEST EXAMINATION: Lungs are clear to auscultation. No chest wall tenderness is noted on palpation or with deep breathing. HEART EXAMINATION: Regular rate and rhythm. S1, S2 heard. No murmurs, gallops or rub. ABDOMEN: Soft, nontender. Positive bowel sounds. EXTREMITIES: 2+ peripheral pulses, no lower extremity edema and no calf tenderness. NEUROLOGIC EXAMINATION: Patient is awake, alert and oriented x3. ASSESSMENT Chest pain, atypical, acute coronary syndrome has been ruled out Triple-vessel diffuse coronary artery disease with previous myocardial infarction status post four-vessel CABG 09/2021, and previous stenting 5, most recently 2008 History of COPD Hypertension Type 2 Diabetes Hyperlipidemia Chronic kidney disease stage III Former tobacco use, recently quit in September 2021 Obstructive sleep apnea currently not using CPAP PLAN Recommend Lexiscan stress test, being performed today. If Lexiscan stress test is negative, no further inpatient work up from a cardiology perspective. If abnormal will consider coronary angiography. Continue home cardiac medications Further recommendations based on clinical course Nurse practitioner note has been reviewed by physician. Signing provider agrees with the documented findings, assessment, and plan of care. Objective - Vital Signs Vital signs: Vital Signs Temp 97.8 F 01/14/22 07:00 Pulse 78 01/14/22 07:00 Resp 17 01/14/22 07:00 BP 129/82 01/14/22 07:00 Pulse Ox 94 L 01/14/22 07:00 Intake & Output 01/13/22 01/14/22 01/14/22 18:59 06:59 18:59 Weight 127.01 kg Other: Voiding Method Toilet Toilet # Voids 1 2 - Labs CBC & Chem 7: 01/12/22 10:18 01/12/22 10:18
--- NOTE | 2022-01-14 10:23 | P.STRESS ---
- Stress Test Note Stress Test Results/Findings: Exam Performed: NM stress lexiscan cardiolite Exam Date: 01/14/22 Reason for Exam: Chest Pain Height: 5 ft 10 in Weight: 127.01 kg Protocol: Lexiscan Stage: na Duration of Exercise: na Resting Heart Rate: 66 Resting Blood Pressure: 140/79 Maximum Achieved Heart Rate: 80 Maximum Achieved Blood Pressure: 140/79 85% PMHR: 143 100% PMHR: 168 METS: na Technologist Comment: Stress Test Results/Findings: This is a 51-year-old gentleman with history of diabetes, hypercholesterolemia and smoking history, being evaluated for cardiac status. Patient also had previous bypass surgery and is admitted to the hospital with chest pain. Stress data: Baseline EKG showed sinus rhythm with a diffuse ST-T abnormalities in anterolateral leads. A standard dose of Lexiscan was infused EKGs taken during and after infusion did not reveal any significant changes from the baseline. Blood pressure at rest is 140/79 with pulse rate of 66. After the infusion of Lexiscan, the blood pressure was about 133/78 with a pulse rate of 73. Final impression: #1. Nondiagnostic Lexiscan stress test #2. Report on the nuclear images to be provided by the radiologist.
[2022-01-14] MEDS: POTASSIUM CHLORIDE ER 10 MEQ TAB.ER.PRT PO SCH (11:01)
[2022-01-14] MEDS: PANTOPRAZOLE 40 MG TABLET PO SCH (11:01)
[2022-01-14] MEDS: SACUBITRIL/VALSARTAN 24 MG-26 MG TABLET PO SCH (11:01)
[2022-01-14] MEDS: SODIUM BICARBONATE TAB 650 MG TAB PO SCH (11:02)
[2022-01-14] MEDS: METOPROLOL TARTRATE 50 MG TAB PO SCH (11:02)
[2022-01-14] MEDS: CLOPIDOGREL 75 MG TAB PO SCH (11:02)
[2022-01-14] MEDS: amLODIPine 5 MG TAB PO SCH (11:02)
[2022-01-14] MEDS: FERROUS SULFATE 325 MG TAB PO SCH (11:02)
[2022-01-14] MEDS: FUROSEMIDE 40 MG TAB PO SCH (11:03)
[2022-01-14] MEDS: SERTRALINE 50 MG TAB PO SCH (11:03)
[2022-01-14] MEDS: ASPIRIN 81 MG PO SCH (11:03)
--- NOTE | 2022-01-14 11:06 | NM ---
EXAMINATION TYPE: NM stress lexiscan cardiolite DATE OF EXAM: 01/14/2022 COMPARISON: NONE HISTORY: Chest pain TECHNIQUE: After the intravenous administration of 10.3 mCi Tc 99m Sestamibi - Cardiolite resting SP ECT images acquired 65 minutes post injection. The patient received 0.4mg Lexiscan, 24.3 mCi Tc 99m Sestamibi - Stress images obtained [address] injection FINDINGS: Review of stress and rest SPECT images demonstrates no distinct stress-induced perfusion abnormality. Next defect inferior wall. Gated analysis shows normal wall motion with an estimated left ventricul ar ejection fraction of 33 %. IMPRESSION: No scintigraphic evidence for reversible ischemia.
--- NOTE | 2022-01-14 14:27 | DS ---
DISCHARGE SUMMARY CHIEF COMPLAINT: Shortness of breath. HISTORY OF PRESENT ILLNESS AND PHYSICAL EXAMINATION: Details of this man's history and physical can be found in his initial workup. COURSE IN HOSPITAL: Once again, he was placed on bedrest and started on intravenous fluids. Troponins were negative. He had no further chest pain, problems with his vital signs or any arrhythmias. BNP was slightly elevated. He repeatedly is going in and out of the hospitals, both [facility] and [facility], and he was admonished that these visits are not necessary and he should bring his care to the office. He will be seen in the office in several days, if he comes in. He has been complaining of some dysesthesias in the left arm and he was worked up to [facility] and did not have a CVA. When he comes to the office, we will line up nerve conduction study and EMG of the upper extremities. FINAL DIAGNOSIS: 1. Chest pain. 2. Coronary artery disease, status post coronary artery bypass grafting. 3. Type 2 diabetes mellitus. 4. Congestive heart failure. 5. Dysesthesias and hypesthesias in the left arm. OPERATIONS: None. CONSULTATIONS: None. He is improved. MMODL / IJN: [id number] /
[2022-01-14 14:38] VITALS: BP 118/91; TEMP 97.9
[2022-01-14 14:58] VITALS: PULSE 63
== END 2022-01-14 15:30 | disposition home or self-care (01) ==
LOC: EC 09:57 → 6NMEDSUR 12:08
PROVIDERS: ADMIT Family Medicine; ATTEND Family Medicine
DX: R07.89 Other chest pain (principal); J44.9 Chronic obstructive pulmonary disease, unspecified; I13.0 Hypertensive heart and chronic kidney disease with heart failure and stage 1 through stage 4 chronic kidney disease, or unspecified chronic kidney disease; I50.9 Heart failure, unspecified; N18.30 Chronic kidney disease, stage 3 unspecified; I48.91 Unspecified atrial fibrillation; I25.10 Atherosclerotic heart disease of native coronary artery without angina pectoris; E11.22 Type 2 diabetes mellitus with diabetic chronic kidney disease; E78.5 Hyperlipidemia, unspecified; I25.2 Old myocardial infarction; K21.9 Gastro-esophageal reflux disease without esophagitis; E78.00 Pure hypercholesterolemia, unspecified; I08.1 Rheumatic disorders of both mitral and tricuspid valves; I25.82 Chronic total occlusion of coronary artery; G47.33 Obstructive sleep apnea (adult) (pediatric); R20.0 Anesthesia of skin; R20.8 Other disturbances of skin sensation; D64.9 Anemia, unspecified; R42 Dizziness and giddiness; F43.10 Post-traumatic stress disorder, unspecified; F31.9 Bipolar disorder, unspecified; F90.9 Attention-deficit hyperactivity disorder, unspecified type; F41.9 Anxiety disorder, unspecified; M10.9 Gout, unspecified; H91.93 Unspecified hearing loss, bilateral; E66.01 Morbid (severe) obesity due to excess calories; Z68.41 Body mass index [BMI] 40.0-44.9, adult; Z79.82 Long term (current) use of aspirin; Z79.51 Long term (current) use of inhaled steroids; Z79.84 Long term (current) use of oral hypoglycemic drugs; Z79.02 Long term (current) use of antithrombotics/antiplatelets; Z79.899 Other long term (current) drug therapy; Z88.0 Allergy status to penicillin; Z88.2 Allergy status to sulfonamides; Z88.8 Allergy status to other drugs, medicaments and biological substances; Z95.1 Presence of aortocoronary bypass graft; Z86.14 Personal history of Methicillin resistant Staphylococcus aureus infection; Z95.5 Presence of coronary angioplasty implant and graft; Z98.890 Other specified postprocedural states; Z87.891 Personal history of nicotine dependence; Z82.49 Family history of ischemic heart disease and other diseases of the circulatory system; Z80.8 Family history of malignant neoplasm of other organs or systems; Z80.0 Family history of malignant neoplasm of digestive organs; Z83.3 Family history of diabetes mellitus
CPT/HCPCS: 99285; 36415; 94640 ×3; 93005; 93017; 85379; 83880; 80061; 80053; 83735; 84484; 85025; 85610; 85730; 71046; 78452; 78582; G0378 ×3; A9500; A9540; A9567; J2785

== ENCOUNTER 2022-01-17 17:37 | Emergency (ER) | payer OTHER ==
[2022-01-17 17:41] VITALS: RESP 16
[2022-01-17 17:57] LABS: Glucose,Whole Blood 357 mg/dL (75-99)
[2022-01-17 18:27] LABS: Basophils % (A) 0 %; Eosinophils % (A) 0 %; HCT 36.5 % (39.0-53.0); HGB 11.6 gm/dL (13.0-17.5); Lymphocytes # (A) 0.4 k/uL (1.0-4.8); Lymphocytes % (A) 5 %; MCH 28.1 pg (25.0-35.0); MCHC 31.7 g/dL (31.0-37.0); MCV 88.6 fL (80.0-100.0); Mean Platelet Volume 7.5; Monocytes # (A) 0.4 k/uL (0-1.0); Monocytes % (A) 5 %; Neutrophils # (A) 6.6 k/uL (1.3-7.7); Neutrophils % (A) 89 %; Platelet Count 193 k/uL (150-450); RBC 4.12 m/uL (4.30-5.90); RDW 15.6 % (11.5-15.5); WBC 7.4 k/uL (3.8-10.6)
[2022-01-17 18:38] LABS: ALT 16 U/L (4-49); AST 31 U/L (17-59); African American GFR (CKD) 54 (>60 ml/min/1.73 sqM); Albumin 3.8 g/dL (3.5-5.0); Alkaline Phosphatase 91 U/L (38-126); Anion Gap 7 mmol/L; Blood Urea Nitrogen 50 mg/dL (9-20); Calcium 8.7 mg/dL (8.4-10.2); Carbon Dioxide 23 mmol/L (22-30); Chloride 103 mmol/L (98-107); Glucose 335 mg/dL (74-99); Non-African American GFR(CKD) 47 (>60 ml/min/1.73 sqM); Potassium 4.8 mmol/L (3.5-5.1); Sodium 133 mmol/L (137-145); Total Bilirubin 0.8 mg/dL (0.2-1.3); Total Protein 6.9 g/dL (6.3-8.2)
--- NOTE | 2022-01-17 18:57 | XR ---
EXAMINATION TYPE: XR chest 2V DATE OF EXAM: 01/17/2022 COMPARISON: NONE HISTORY: Short of breath TECHNIQUE: 2 views FINDINGS: Heart is normal. Lungs are clear of infiltrate. No heart failure seen. There are no hilar m asses. There are sternal wires. Costophrenic angles are clear. IMPRESSION: No active cardiopulmonary disease. Normal heart.
[2022-01-17 19:03] VITALS: TEMP 98
[2022-01-17] MEDS ORDERED: SODIUM CHLORIDE 0.9% 500 ML 500 ML IV ONE (19:08)
[2022-01-17] MEDS ORDERED: INSULIN REGULAR 100 UNIT/ML VIAL (IV) IV ONE (19:08)
--- NOTE | 2022-01-17 19:32 | ED ---
General Adult HPI - General Chief complaint: Shortness of Breath Stated complaint: High Sugar/SOB Time Seen by Provider: 01/17/22 17:49 Source: patient, RN notes reviewed, old records reviewed Mode of arrival: wheelchair Limitations: no limitations - History of Present Illness Initial comments: 51-year-old male presenting for evaluation of hyperglycemia. Patient has history diabetes, he is on oral medications. No insulin. He checked his blood sugar at home and it was 350. He called his primary care physician and sent to the emergency department for evaluation. He has history of diabetes, CAD, hypertension. Patient denies central chest pain. Denies fever. - Related Data Home Medications Medication Instructions Recorded Confirmed Nitroglycerin Sl Tabs [Nitrostat] 0.4 mg SL Q5M PRN 11/02/21 01/12/22 Aspirin EC [Ecotrin Low Dose] 81 mg PO DAILY 11/10/21 01/12/22 Albuterol Sulfate [Albuterol 2 puff INHALATION RT-QID PRN 11/28/21 01/12/22 Sulfate Hfa] Budesonide/Formoterol Fumarate 2 puff INHALATION RT-BID 11/28/21 01/12/22 [Symbicort 160-4.5 Mcg Inhaler] Clopidogrel [Plavix] 75 mg PO DAILY 12/29/21 01/12/22 Empagliflozin [Jardiance] 10 mg PO DAILY 12/29/21 01/12/22 Sacubitril/Valsartan [Entresto 24 1 tab PO BID 12/29/21 01/12/22 mg-26 mg Tablet] Furosemide [Lasix] 40 mg PO DAILY 01/12/22 01/12/22 Metoprolol Tartrate [Lopressor] 50 mg PO DAILY 01/12/22 01/12/22 Pantoprazole Sodium [Protonix] 40 mg PO DAILY 01/12/22 01/12/22 Previous Rx's Medication Instructions Recorded Acetaminophen Tab [Tylenol] 650 mg PO Q4HR PRN tab 10/14/21 Ascorbic Acid [Vitamin C] 500 mg PO BID-W/MEALS #60 tab 10/14/21 Atorvastatin [Lipitor] 80 mg PO HS #30 tab 10/14/21 Ferrous Sulfate [Iron (65 MG 325 mg PO BID-W/MEALS #60 tab 10/14/21 Elemental)] Potassium Chloride ER [K-Dur 10] 10 meq PO DAILY #30 tab 10/14/21 Sertraline [Zoloft] 50 mg PO DAILY #30 tab 10/14/21 Sodium Bicarbonate Tab 650 mg PO DAILY #30 tab 10/14/21 amLODIPine [Norvasc] 5 mg PO DAILY #30 tab 10/14/21 Allergies Allergy/AdvReac Type Severity Reaction Status Date / Time Penicillins Allergy Anaphylaxis Verified 01/17/22 17:39 spironolactone Allergy Anaphylaxis Verified 01/17/22 17:39 Sulfa (Sulfonamide Allergy Anaphylaxis Verified 01/17/22 17:39 Antibiotics) Review of Systems ROS Statement: Those systems with pertinent positive or pertinent negative responses have been documented in the HPI. ROS Other: All systems not noted in ROS Statement are negative. Past Medical History Past Medical History: Atrial Fibrillation, Asthma, Coronary Artery Disease (CAD), Heart Failure, COPD, Diabetes Mellitus, GERD/Reflux, Hyperlipidemia, Hypertension, Myocardial Infarction ([place]), Renal Disease, Sleep Apnea/CPAP/BIPAP Additional Past Medical History / Comment(s): Pt recently admitted to [facility] on 12/29/21 with CHF. Other hx: NIDDM type II, CKD stage III, chronic anemia, CHLOE without device d/t insurance issues, mild COPD, [place] bilateral ears, gout. Last Myocardial Infarction Date:: 2008 History of Any Multi-Drug Resistant Organisms: MRSA Date of last positivie culture/infection: 10/2020 MDRO Source:: Right eye Past Surgical History: Adenoidectomy, Coronary Bypass/CABG, Heart Catheterization, Heart Catheterization With Stent, Tonsillectomy Additional Past Surgical History / Comment(s): cardiac stents x 5, quad bipass open heart 10/07/2021 Past Anesthesia/Blood Transfusion Reactions: Postoperative Nausea & Vomiting (PONV) Date of Last Stent Placement:: 2008 Past Psychological History: ADD/ADHD, Anxiety, Bipolar, Depression, PTSD Smoking Status: Former smoker Past Alcohol Use History: None Reported Past Drug Use History: None Reported - Past Family History Father Family Medical History: Cancer, Coronary Artery Disease (CAD), Myocardial Infarction ([place]) Additional Family Medical History / Comment(s): at age 68 from mesothelioma, diagnosis of heart disease age of 60 Mother Family Medical History: Cancer, Coronary Artery Disease (CAD), Diabetes Mellit us, Liver Disease, Myocardial Infarction ([place]) Additional Family Medical History / Comment(s): from liver cancer, diagnosed with heart disease before the age of 60 General Exam Limitations: no limitations General appearance: alert, in no apparent distress Head exam: Present: atraumatic, normocephalic Eye exam: Present: normal appearance, PERRL ENT exam: Present: mucous membranes dry Neck exam: Present: normal inspection. Absent: tenderness, meningismus Respiratory exam: Present: normal lung sounds bilaterally. Absent: respiratory distress, wheezes, rales, rhonchi Cardiovascular Exam: Present: regular rate, normal rhythm GI/Abdominal exam: Present: soft. Absent: distended, tenderness, guarding Extremities exam: Present: normal inspection Neurological exam: Present: alert, oriented X3, CN II-XII intact. Absent: motor sensory deficit Psychiatric exam: Present: normal affect, normal mood Skin exam: Present: warm, dry, intact. Absent: cyanosis, diaphoretic Course Vital Signs 01/17/22 01/17/22 01/17/22 17:39 19:01 20:17 Temperature 97.9 F 98.0 F Pulse Rate 101 H 83 77 Respiratory 16 16 16 Rate Blood Pressure 149/80 144/83 147/83 O2 Sat by Pulse 94 L 97 98 Oximetry EKG Findings - EKG Comments: EKG Findings:: EKG: Sinus rhythm T-wave inversion throughout the precordial leads, similar compared to prior. Ventricular rate of 85, [place] interval 181, QRS duration 105, QTC 412. No ST segment elevation. Medical Decision Making - Medical Decision Making 51-year-old male with elevated sugar. Initial blood sugar. He does admit to a pasta lunch today. He is no signs of DKA, is acetone is negative. He did have some mild dyspnea and I ordered an x-ray which was negative. Patient feeling much better and eager for discharge. His blood sugars down trending in the emergency department he will follow with his primary care yolande sampson. - Lab Data Result diagrams: 01/17/22 18:13 01/17/22 18:13 Lab Results 01/17/22 01/17/22 01/17/22 Range/Units 17:56 18:13 18:13 WBC 7.4 (3.8-10.6) k/uL RBC 4.12 L (4.30-5.90) m/uL Hgb 11.6 L (13.0-17.5) gm/dL Hct 36.5 L (39.0-53.0) % MCV 88.6 (80.0-100.0) fL MCH 28.1 (25.0-35.0) pg MCHC 31.7 (31.0-37.0) g/dL RDW 15.6 H (11.5-15.5) % Plt Count 193 (150-450) k/uL MPV 7.5 Neutrophils % 89 % Lymphocytes % 5 % Monocytes % 5 % Eosinophils % 0 % Basophils % 0 % Neutrophils # 6.6 (1.3-7.7) k/uL Lymphocytes # 0.4 L (1.0-4.8) k/uL Monocytes # 0.4 (0-1.0) k/uL Eosinophils # 0.0 (0-0.7) k/uL Basophils # 0.0 (0-0.2) k/uL Sodium 133 L (137-145) mmol/L Potassium 4.8 (3.5-5.1) mmol/L Chloride 103 (98-107) mmol/L Carbon Dioxide 23 (22-30) mmol/L Anion Gap 7 mmol/L BUN 50 H (9-20) mg/dL Creatinine 1.66 H (0.66-1.25) mg/dL Est GFR (CKD-EPI)AfAm 54 (>60 ml/min/1.73 sqM) Est GFR (CKD-EPI)NonAf 47 (>60 ml/min/1.73 sqM) Glucose 335 H (74-99) mg/dL POC Glucose (mg/dL) 357 H (75-99) mg/dL POC Glu Embossograph Operator ID Belval, Angelita Calcium 8.7 (8.4-10.2) mg/dL Total Bilirubin 0.8 (0.2-1.3) mg/dL AST 31 (17-59) U/L ALT 16 (4-49) U/L Alkaline Phosphatase 91 (38-126) U/L Troponin I (0.000-0.034) ng/mL NT-Pro-B Natriuret Pep pg/mL Total Protein 6.9 (6.3-8.2) g/dL Albumin 3.8 (3.5-5.0) g/dL Acetone, Qual Negative (Negative) 01/17/22 01/17/22 01/17/22 Range/Units 18:13 18:13 19:57 WBC (3.8-10.6) k/uL RBC (4.30-5.90) m/uL Hgb (13.0-17.5) gm/dL Hct (39.0-53.0) % MCV (80.0-100.0) fL MCH (25.0-35.0) pg MCHC (31.0-37.0) g/dL RDW (11.5-15.5) % Plt Count (150-450) k/uL MPV Neutrophils % % Lymphocytes % % Monocytes % % Eosinophils % % Basophils % % Neutrophils # (1.3-7.7) k/uL Lymphocytes # (1.0-4.8) k/uL Monocytes # (0-1.0) k/uL Eosinophils # (0-0.7) k/uL Basophils # (0-0.2) k/uL Sodium (137-145) mmol/L Potassium (3.5-5.1) mmol/L Chloride (98-107) mmol/L Carbon Dioxide (22-30) mmol/L Anion Gap mmol/L BUN (9-20) mg/dL Creatinine (0.66-1.25) mg/dL Est GFR (CKD-EPI)AfAm (>60 ml/min/1.73 sqM) Est GFR (CKD-EPI)NonAf (>60 ml/min/1.73 sqM) Glucose (74-99) mg/dL POC Glucose (mg/dL) 335 H (75-99) mg/dL POC Glu Embossograph Operator ID Gilberto Hanna Calcium (8.4-10.2) mg/dL Total Bilirubin (0.2-1.3) mg/dL AST (17-59) U/L ALT (4-49) U/L Alkaline Phosphatase (38-126) U/L Troponin I 0.016 (0.000-0.034) ng/mL NT-Pro-B Natriuret Pep 1330 pg/mL Total Protein (6.3-8.2) g/dL Albumin (3.5-5.0) g/dL Acetone, Qual (Negative) 01/17/22 Range/Units 20:49 WBC (3.8-10.6) k/uL RBC (4.30-5.90) m/uL Hgb (13.0-17.5) gm/dL Hct (39.0-53.0) % MCV (80.0-100.0) fL MCH (25.0-35.0) pg MCHC (31.0-37.0) g/dL RDW (11.5-15.5) % Plt Count (150-450) k/uL MPV Neutrophils % % Lymphocytes % % Monocytes % % Eosinophils % % Basophils % % Neutrophils # (1.3-7.7) k/uL Lymphocytes # (1.0-4.8) k/uL Monocytes # (0-1.0) k/uL Eosinophils # (0-0.7) k/uL Basophils # (0-0.2) k/uL Sodium (137-145) mmol/L Potassium (3.5-5.1) mmol/L Chloride (98-107) mmol/L Carbon Dioxide (22-30) mmol/L Anion Gap mmol/L BUN (9-20) mg/dL Creatinine (0.66-1.25) mg/dL Est GFR (CKD-EPI)AfAm (>60 ml/min/1.73 sqM) Est GFR (CKD-EPI)NonAf (>60 ml/min/1.73 sqM) Glucose (74-99) mg/dL POC Glucose (mg/dL) 301 H (75-99) mg/dL POC Glu Embossograph Operator ID Nkechi Coats Calcium (8.4-10.2) mg/dL Total Bilirubin (0.2-1.3) mg/dL AST (17-59) U/L ALT (4-49) U/L Alkaline Phosphatase (38-126) U/L Troponin I (0.000-0.034) ng/mL NT-Pro-B Natriuret Pep pg/mL Total Protein (6.3-8.2) g/dL Albumin (3.5-5.0) g/dL Acetone, Qual (Negative) Disposition Clinical Impression: Hyperglycemia due to type 2 diabetes mellitus Disposition: HOME SELF-CARE Condition: Fair Instructions (If sedation given, give patient instructions): Diabetic Hyperglycemia (ED) Is patient prescribed a controlled substance at d/c from ED?: No Referrals: Edwin Hansen MD [Primary Care Provider] - 1-2 days Time of Disposition: 21:07
[2022-01-17 20:00] LABS: Glucose,Whole Blood 335 mg/dL (75-99)
[2022-01-17 20:51] LABS: Glucose,Whole Blood 301 mg/dL (75-99)
[2022-01-17 21:19] VITALS: BP 136/81; PULSE 76
== END 2022-01-17 21:18 | disposition home or self-care (01) ==
LOC: EC 17:37
DX: E11.65 Type 2 diabetes mellitus with hyperglycemia (principal); E11.22 Type 2 diabetes mellitus with diabetic chronic kidney disease; I13.0 Hypertensive heart and chronic kidney disease with heart failure and stage 1 through stage 4 chronic kidney disease, or unspecified chronic kidney disease; I50.9 Heart failure, unspecified; N18.30 Chronic kidney disease, stage 3 unspecified; J44.9 Chronic obstructive pulmonary disease, unspecified; K21.9 Gastro-esophageal reflux disease without esophagitis; I48.91 Unspecified atrial fibrillation; I25.10 Atherosclerotic heart disease of native coronary artery without angina pectoris; I25.2 Old myocardial infarction; E78.5 Hyperlipidemia, unspecified; F31.9 Bipolar disorder, unspecified; F41.9 Anxiety disorder, unspecified; Z79.02 Long term (current) use of antithrombotics/antiplatelets; Z79.51 Long term (current) use of inhaled steroids; Z79.82 Long term (current) use of aspirin; Z79.84 Long term (current) use of oral hypoglycemic drugs; Z79.899 Other long term (current) drug therapy; Z87.891 Personal history of nicotine dependence; Z95.1 Presence of aortocoronary bypass graft
CPT/HCPCS: 36415; 71046; 80053; 82009; 83880; 84484; 85025; 93005; 96361; 96374; 99284

== ENCOUNTER 2022-01-18 05:52 | Emergency (ER) | payer OTHER ==
[2022-01-18 06:06] VITALS: RESP 18; TEMP 97.8
[2022-01-18 07:54] LABS: Glucose,Whole Blood 299 mg/dL (75-99)
--- NOTE | 2022-01-18 08:41 | ED ---
General Adult HPI - General Chief complaint: Recheck/Abnormal Lab/Rx Stated complaint: Hyperglycemia Time Seen by Provider: 01/18/22 08:15 Source: patient, RN notes reviewed Mode of arrival: ambulatory Limitations: no limitations - History of Present Illness Initial comments: 51-year-old male presents with complaints of elevated blood sugar. He was seen here yesterday he had elevated blood sugar in the 3 5360 range he states he ran of his medication 3 days ago and can't get again until tomorrow. He denies any fevers chills nausea vomiting sweats he states his sugar was noted to be elevated after eating some p.m. on her breath. He currently resides in a assisted house he states the diarrhea is not the best for his current situation. He has no other complains modifying factors at this time he does not use insulin. - Related Data Home Medications Medication Instructions Recorded Confirmed Nitroglycerin Sl Tabs [Nitrostat] 0.4 mg SL Q5M PRN 11/02/21 01/12/22 Aspirin EC [Ecotrin Low Dose] 81 mg PO DAILY 11/10/21 01/12/22 Albuterol Sulfate [Albuterol 2 puff INHALATION RT-QID PRN 11/28/21 01/12/22 Sulfate Hfa] Budesonide/Formoterol Fumarate 2 puff INHALATION RT-BID 11/28/21 01/12/22 [Symbicort 160-4.5 Mcg Inhaler] Clopidogrel [Plavix] 75 mg PO DAILY 12/29/21 01/12/22 Empagliflozin [Jardiance] 10 mg PO DAILY 12/29/21 01/12/22 Sacubitril/Valsartan [Entresto 24 1 tab PO BID 12/29/21 01/12/22 mg-26 mg Tablet] Furosemide [Lasix] 40 mg PO DAILY 01/12/22 01/12/22 Metoprolol Tartrate [Lopressor] 50 mg PO DAILY 01/12/22 01/12/22 Pantoprazole Sodium [Protonix] 40 mg PO DAILY 01/12/22 01/12/22 Previous Rx's Medication Instructions Recorded Acetaminophen Tab [Tylenol] 650 mg PO Q4HR PRN tab 10/14/21 Ascorbic Acid [Vitamin C] 500 mg PO BID-W/MEALS #60 tab 10/14/21 Atorvastatin [Lipitor] 80 mg PO HS #30 tab 10/14/21 Ferrous Sulfate [Iron (65 MG 325 mg PO BID-W/MEALS #60 tab 10/14/21 Elemental)] Potassium Chloride ER [K-Dur 10] 10 meq PO DAILY #30 tab 10/14/21 Sertraline [Zoloft] 50 mg PO DAILY #30 tab 10/14/21 Sodium Bicarbonate Tab 650 mg PO DAILY #30 tab 10/14/21 amLODIPine [Norvasc] 5 mg PO DAILY #30 tab 10/14/21 Allergies Allergy/AdvReac Type Severity Reaction Status Date / Time Penicillins Allergy Anaphylaxis Verified 01/18/22 06:05 spironolactone Allergy Anaphylaxis Verified 01/18/22 06:05 Sulfa (Sulfonamide Allergy Anaphylaxis Verified 01/18/22 06:05 Antibiotics) Review of Systems ROS Statement: Those systems with pertinent positive or pertinent negative responses have been documented in the HPI. ROS Other: All systems not noted in ROS Statement are negative. Past Medical History Past Medical History: Atrial Fibrillation, Asthma, Coronary Artery Disease (CAD), Heart Failure, COPD, Diabetes Mellitus, GERD/Reflux, Hyperlipidemia, Hypertension, Myocardial Infarction ([place]), Renal Disease, Sleep Apnea/CPAP/BIPAP Additional Past Medical History / Comment(s): Pt recently admitted to [facility] on 12/29/21 with CHF. Other hx: NIDDM type II, CKD stage III, chronic anemia, CHLOE without device d/t insurance issues, mild COPD, [place] bilateral ears, gout. Last Myocardial Infarction Date:: 2008 History of Any Multi-Drug Resistant Organisms: MRSA Date of last positivie culture/infection: 10/2020 MDRO Source:: Right eye Past Surgical History: Adenoidectomy, Coronary Bypass/CABG, Heart Catheterization, Heart Catheterization With Stent, Tonsillectomy Additional Past Surgical History / Comment(s): cardiac stents x 5, quad bipass open heart 10/07/2021 Past Anesthesia/Blood Transfusion Reactions: Postoperative Nausea & Vomiting (PONV) Date of Last Stent Placement:: 2008 Past Psychological History: ADD/ADHD, Anxiety, Bipolar, Depression, PTSD Smoking Status: Former smoker Past Alcohol Use History: None Reported Past Drug Use History: None Reported - Past Family History Father Family Medical History: Cancer, Coronary Artery Disease (CAD), Myocardial Infarction ([place]) Additional Family Medical History / Comment(s): at age 68 from mesothelioma, diagnosis of heart disease age of 60 Mother Family Medical History: Cancer, Coronary Artery Disease (CAD), Diabetes Mellitus, Liver Disease, Myocardial Infarction ([place]) Additional Family Medical History / Comment(s): from liver cancer, diagnosed with heart disease before the age of 60 General Exam - General Exam Comments Initial Comments: This is a well-developed well-nourished awake alert oriented 3 male Limitations: no limitations General appearance: alert, in no apparent distress Head exam: Present: atraumatic, normocephalic, normal inspection Eye exam: Present: normal appearance, PERRL, EOMI. Absent: scleral icterus, conjunctival injection, periorbital swelling ENT exam: Present: normal exam, mucous membranes moist Neck exam: Present: normal inspection. Absent: tenderness, meningismus, lymphadenopathy Respiratory exam: Present: normal lung sounds bilaterally. Absent: respiratory distress, wheezes, rales, rhonchi, stridor Cardiovascular Exam: Present: regular rate, normal rhythm, normal heart sounds. Absent: systolic murmur, diastolic murmur, rubs, gallop, clicks GI/Abdominal exam: Present: soft, normal bowel sounds. Absent: distended, tenderness, guarding, rebound, rigid Extremities exam: Present: normal inspection, full ROM, normal capillary refill. Absent: tenderness, pedal edema, joint swelling, calf tenderness Back exam: Present: normal inspection Neurological exam: Present: alert, oriented X3, CN II-XII intact Psychiatric exam: Present: normal affect, normal mood Skin exam: Present: warm, dry, intact, normal color. Absent: rash Course Vital Signs 01/18/22 01/18/22 06:03 08:58 Temperature 97.8 F Pulse Rate 82 80 Respiratory 18 18 Rate Blood Pressure 155/75 148/76 O2 Sat by Pulse 95 96 Oximetry Medical Decision Making - Medical Decision Making Patient is been observed in emergency department throughout the day he did have a COVID-19 test which was negative. Blood sugar has improved. Patient will hand picker his prescription tomorrow started. He is in agreement with this - Lab Data Lab Results 01/18/22 01/18/22 01/18/22 Range/Units 07:52 10:06 10:10 POC Glucose (mg/dL) 299 H 209 H (75-99) mg/dL POC Glu Night Worker Jesica Dewitt Alana Coronavirus (PCR) Not Detected (Not Detectd) Disposition Clinical Impression: Hyperglycemia Disposition: HOME SELF-CARE Condition: Good Is patient prescribed a controlled substance at d/c from ED?: No Referrals: Edwin Hansen MD [Primary Care Provider] - 1-2 days Decision Date: 01/18/22 Decision Time: 12:24
[2022-01-18 10:12] LABS: Glucose,Whole Blood 209 mg/dL (75-99)
[2022-01-18 14:01] VITALS: BP 150/78; PULSE 84
== END 2022-01-18 13:50 | disposition home or self-care (01) ==
LOC: EC 05:52
DX: E11.65 Type 2 diabetes mellitus with hyperglycemia (principal); E11.22 Type 2 diabetes mellitus with diabetic chronic kidney disease; I13.0 Hypertensive heart and chronic kidney disease with heart failure and stage 1 through stage 4 chronic kidney disease, or unspecified chronic kidney disease; N18.30 Chronic kidney disease, stage 3 unspecified; I50.9 Heart failure, unspecified; I48.91 Unspecified atrial fibrillation; I25.10 Atherosclerotic heart disease of native coronary artery without angina pectoris; K21.9 Gastro-esophageal reflux disease without esophagitis; E78.5 Hyperlipidemia, unspecified; I25.2 Old myocardial infarction; J44.9 Chronic obstructive pulmonary disease, unspecified; F90.9 Attention-deficit hyperactivity disorder, unspecified type; F41.9 Anxiety disorder, unspecified; F31.9 Bipolar disorder, unspecified; F43.10 Post-traumatic stress disorder, unspecified; Z20.822 Contact with and (suspected) exposure to COVID-19; Z79.82 Long term (current) use of aspirin; Z79.02 Long term (current) use of antithrombotics/antiplatelets; Z88.0 Allergy status to penicillin; Z88.2 Allergy status to sulfonamides; Z87.891 Personal history of nicotine dependence; Z95.5 Presence of coronary angioplasty implant and graft
CPT/HCPCS: 36415; 87635; 99284

== ENCOUNTER 2022-02-23 23:22 | Emergency (ER) | payer OTHER ==
[2022-02-23 23:28] VITALS: BP 136/89; PULSE 100; RESP 18; TEMP 98
[2022-02-23 23:42] LABS: Glucose,Whole Blood 118 mg/dL (75-99)
--- NOTE | 2022-02-24 00:03 | ED ---
Recheck HPI - General Chief Complaint: Recheck/Abnormal Lab/Rx Stated Complaint: low sugar Time Seen by Provider: 02/23/22 23:59 Source: patient, RN notes reviewed, old records reviewed Mode of arrival: ambulatory Limitations: no limitations - History of Present Illness Initial Comments: This is a 51-year-old male who presents today for blood sugar evaluation. Patient had a low blood sugar at home. Was very concerned. He came DF for evaluation otherwise a symptomatic, blood sugar was in the 80s. Patient does suffer from diabetes but is otherwise been feeling well no nausea vomiting or diarrhea MD Complaint: abnormal lab (Patient believes his blood sugar was low earlier today) -: unknown Returns Today for: Called Because of Abnormal Lab/Test Symptoms Since Prior Visit: no new symptoms Context: planned re-check, called for abnormal lab result Associated Symptoms: none Treatments Prior to Arrival: other (none) - Related Data Home Medications Medication Instructions Recorded Confirmed Nitroglycerin Sl Tabs [Nitrostat] 0.4 mg SL Q5M PRN 11/02/21 01/12/22 Aspirin EC [Ecotrin Low Dose] 81 mg PO DAILY 11/10/21 01/12/22 Albuterol Sulfate [Albuterol 2 puff INHALATION RT-QID PRN 11/28/21 01/12/22 Sulfate Hfa] Budesonide/Formoterol Fumarate 2 puff INHALATION RT-BID 11/28/21 01/12/22 [Symbicort 160-4.5 Mcg Inhaler] Clopidogrel [Plavix] 75 mg PO DAILY 12/29/21 01/12/22 Empagliflozin [Jardiance] 10 mg PO DAILY 12/29/21 01/12/22 Sacubitril/Valsartan [Entresto 24 1 tab PO BID 12/29/21 01/12/22 mg-26 mg Tablet] Furosemide [Lasix] 40 mg PO DAILY 01/12/22 01/12/22 Metoprolol Tartrate [Lopressor] 50 mg PO DAILY 01/12/22 01/12/22 Pantoprazole Sodium [Protonix] 40 mg PO DAILY 01/12/22 01/12/22 Previous Rx's Medication Instructions Recorded Acetaminophen Tab [Tylenol] 650 mg PO Q4HR PRN tab 10/14/21 Ascorbic Acid [Vitamin C] 500 mg PO BID-W/MEALS #60 tab 10/14/21 Atorvastatin [Lipitor] 80 mg PO HS #30 tab 10/14/21 Ferrous Sulfate [Iron (65 MG 325 mg PO BID-W/MEALS #60 tab 10/14/21 Elemental)] Potassium Chloride ER [K-Dur 10] 10 meq PO DAILY #30 tab 10/14/21 Sertraline [Zoloft] 50 mg PO DAILY #30 tab 10/14/21 Sodium Bicarbonate Tab 650 mg PO DAILY #30 tab 10/14/21 amLODIPine [Norvasc] 5 mg PO DAILY #30 tab 10/14/21 Allergies Allergy/AdvReac Type Severity Reaction Status Date / Time Penicillins Allergy Anaphylaxis Verified 02/23/22 23:28 spironolactone Allergy Anaphylaxis Verified 02/23/22 23:28 Sulfa (Sulfonamide Allergy Anaphylaxis Verified 02/23/22 23:28 Antibiotics) Review of Systems ROS Statement: Those systems with pertinent positive or pertinent negative responses have been documented in the HPI. ROS Other: All systems not noted in ROS Statement are negative. Past Medical History Past Medical History: Atrial Fibrillation, Asthma, Coronary Artery Disease (CAD), Heart Failure, COPD, Diabetes Mellitus, GERD/Reflux, Hyperlipidemia, Hypertension, Myocardial Infarction ([place]), Renal Disease, Sleep Apnea/CPAP/BIPAP Additional Past Medical History / Comment(s): Pt recently admitted to [facility] on 12/29/21 with CHF. Other hx: NIDDM type II, CKD stage III, chronic anemia, CHLOE without device d/t insurance issues, mild COPD, [place] bilateral ears, gout. Last Myocardial Infarction Date:: 2008 History of Any Multi-Drug Resistant Organisms: MRSA Date of last positivie culture/infection: 10/2020 MDRO Source:: Right eye Past Surgical History: Adenoidectomy, Coronary Bypass/CABG, Heart Catheterization, Heart Catheterization With Stent, Tonsillectomy Additional Past Surgical History / Comment(s): cardiac stents x 5, quad bipass open heart 10/07/2021 Past Anesthesia/Blood Transfusion Reactions: Postoperative Nausea & Vomiting (PONV) Date of Last Stent Placement:: 2008 Past Psychological History: ADD/ADHD, Anxiety, Bipolar, Depression, PTSD Smoking Status: Former smoker Past Alcohol Use History: None Reported Past Drug Use History: None Reported - Past Family History Father Family Medical History: Cancer, Coronary Artery Disease (CAD), Myocardial Infarction ([place]) Additional Family Medical History / Comment(s): at age 68 from mesothelioma, diagnosis of heart disease age of 60 Mother Family Medical History: Cancer, Coronary Artery Disease (CAD), Diabetes Mellitus, Liver Disease, Myocardial Infarction ([place]) Additional Family Medical History / Comment(s): from liver cancer, diagnosed with heart disease before the age of 60 General Exam Limitations: no limitations General appearance: alert, in no apparent distress Head exam: Present: atraumatic, normocephalic, normal inspection Eye exam: Present: normal appearance, PERRL, EOMI. Absent: scleral icterus, conjunctival injection, periorbital swelling ENT exam: Present: normal exam, mucous membranes moist Neck exam: Present: normal inspection. Absent: tenderness, meningismus, lymphadenopathy Respiratory exam: Present: normal lung sounds bilaterally. Absent: respiratory distress, wheezes, rales, rhonchi, stridor Cardiovascular Exam: Present: regular rate, normal rhythm, normal heart sounds. Absent: systolic murmur, diastolic murmur, rubs, gallop, clicks GI/Abdominal exam: Present: soft, normal bowel sounds. Absent: distended, tenderness, guarding, rebound, rigid Extremities exam: Present: normal inspection, full ROM, normal capillary refill. Absent: tenderness, pedal edema, joint swelling, calf tenderness Back exam: Present: normal inspection Neurological exam: Present: alert, oriented X3, CN II-XII intact Psychiatric exam: Present: normal affect, normal mood Skin exam: Present: warm, dry, intact, normal color. Absent: rash Course Vital Signs 02/23/22 23:23 Temperature 98 F Pulse Rate 100 Respiratory 18 Rate Blood Pressure 136/89 O2 Sat by Pulse 96 Oximetry - Reevaluation(s) Reevaluation #1: 02/24/22 00:01 Medical record is reviewed Reevaluation #2: 02/24/22 00:45 Ashes blood sugar remains normal Reevaluation #3: 02/24/22 00:45 Patient is able tolerate eating food here in the ER as well Medical Decision Making - Medical Decision Making 51 male to the emergency department for evaluation of low blood sugar. Patient presents he was concerned of blood sugar being low, blood sugar was in the 80s at home and is normal here. We checked an hour after initial blood check and is remaining normal. Patient can be discharged home - Lab Data Lab Results 02/23/22 Range/Units 23:32 POC Glucose (mg/dL) 118 H (75-99) mg/dL POC Glu Program Director/Traffic Director ID Fabricio Mendoza Disposition Clinical Impression: Hypoglycemia Disposition: HOME SELF-CARE Condition: Good Instructions (If sedation given, give patient instructions): Hypoglycemia in a Person with Diabetes (ED), What to Do if Your Blood Sugar is Low (ED) Is patient prescribed a controlled substance at d/c from ED?: No Referrals: Edwin Hansen MD [Primary Care Provider] - 1-2 days
[2022-02-24 03:36] LABS: Glucose,Whole Blood 166 mg/dL (75-99)
== END 2022-02-24 04:30 | disposition home or self-care (01) ==
LOC: EC 23:22
DX: E11.649 Type 2 diabetes mellitus with hypoglycemia without coma (principal); E11.22 Type 2 diabetes mellitus with diabetic chronic kidney disease; I13.0 Hypertensive heart and chronic kidney disease with heart failure and stage 1 through stage 4 chronic kidney disease, or unspecified chronic kidney disease; I50.9 Heart failure, unspecified; N18.30 Chronic kidney disease, stage 3 unspecified; J44.9 Chronic obstructive pulmonary disease, unspecified; K21.9 Gastro-esophageal reflux disease without esophagitis; I48.91 Unspecified atrial fibrillation; E78.5 Hyperlipidemia, unspecified; F41.9 Anxiety disorder, unspecified; F31.9 Bipolar disorder, unspecified; I25.10 Atherosclerotic heart disease of native coronary artery without angina pectoris; I25.2 Old myocardial infarction; M10.9 Gout, unspecified; Z79.02 Long term (current) use of antithrombotics/antiplatelets; Z79.51 Long term (current) use of inhaled steroids; Z79.82 Long term (current) use of aspirin; Z79.84 Long term (current) use of oral hypoglycemic drugs; Z87.891 Personal history of nicotine dependence; Z88.0 Allergy status to penicillin; Z88.2 Allergy status to sulfonamides; Z95.1 Presence of aortocoronary bypass graft
CPT/HCPCS: 36415; 99283

== ENCOUNTER → 2022-03-12 | Outpatient (CLI) | payer OTHER ==
[2022-03-12 15:04] VITALS: BMI 41.3
== END ==
LOC: EDSTATUS 13:00 → DBWHC3 13:09
PROVIDERS: ATTEND Family Medicine
DX: E11.65 Type 2 diabetes mellitus with hyperglycemia (principal); Z88.0 Allergy status to penicillin; Z88.2 Allergy status to sulfonamides; Z88.8 Allergy status to other drugs, medicaments and biological substances
CPT/HCPCS: G0108 ×3

== ENCOUNTER 2022-03-15 03:10 | Emergency (ER) | payer OTHER ==
[2022-03-15 03:14] VITALS: RESP 18
[2022-03-15] MEDS ORDERED: SODIUM CHLORIDE 0.9% 1,000 ML IV STA (06:44)
[2022-03-15] MEDS ORDERED: METOCLOPRAMIDE 5 MG/ML 2 ML VIAL IVP STA (06:44)
--- NOTE | 2022-03-15 07:13 | ED ---
Nausea/Vomiting/Diarrhea HPI - General Chief complaint: Nausea/Vomiting/Diarrhea Stated complaint: vomiting Time Seen by Provider: 03/15/22 06:34 Source: patient Mode of arrival: ambulatory Limitations: no limitations - History of Present Illness Initial comments: Patient is a 51-year-old male presenting with chief complaint of nausea and vomiting. Patient states in the middle the night he woke up with a sensation of acid in his throat and mouth. This caused him to vomit upon awakening. Patient states that he has had several episodes of nausea and vomiting since then. He states that his sinuses have also been draining, and the drainage has caused him to gag and vomit. He admits to some low abdominal pain that he attributes to retching. Patient states that he has had diarrhea for several days. He denies any chest pain, shortness of breath, palpitations, coffee ground emesis, hematochezia, melena, hematemesis, cough, dysphasia, weakness, headache, vision or hearing changes. - Related Data Home Medications Medication Instructions Recorded Confirmed Nitroglycerin Sl Tabs [Nitrostat] 0.4 mg SL Q5M PRN 11/02/21 01/12/22 Aspirin EC [Ecotrin Low Dose] 81 mg PO DAILY 11/10/21 01/12/22 Albuterol Sulfate [Albuterol 2 puff INHALATION RT-QID PRN 11/28/21 01/12/22 Sulfate Hfa] Budesonide/Formoterol Fumarate 2 puff INHALATION RT-BID 11/28/21 01/12/22 [Symbicort 160-4.5 Mcg Inhaler] Clopidogrel [Plavix] 75 mg PO DAILY 12/29/21 01/12/22 Empagliflozin [Jardiance] 25 mg PO DAILY 12/29/21 01/12/22 Sacubitril/Valsartan [Entresto 24 1 tab PO BID 12/29/21 01/12/22 mg-26 mg Tablet] Furosemide [Lasix] 40 mg PO DAILY 01/12/22 01/12/22 Metoprolol Tartrate [Lopressor] 50 mg PO DAILY 01/12/22 01/12/22 Pantoprazole Sodium [Protonix] 40 mg PO DAILY 01/12/22 01/12/22 Dulaglutide [Trulicity] 0.75 mg SQ Q7DAYS 03/12/22 03/12/22 metFORMIN HCL [Glucophage] 500 mg PO BID 03/12/22 03/12/22 Previous Rx's Medication Instructions Recorded Acetaminophen Tab [Tylenol] 650 mg PO Q4HR PRN tab 10/14/21 Ascorbic Acid [Vitamin C] 500 mg PO BID-W/MEALS #60 tab 10/14/21 Atorvastatin [Lipitor] 80 mg PO HS #30 tab 10/14/21 Ferrous Sulfate [Iron (65 MG 325 mg PO BID-W/MEALS #60 tab 10/14/21 Elemental)] Potassium Chloride ER [K-Dur 10] 10 meq PO DAILY #30 tab 10/14/21 Sertraline [Zoloft] 50 mg PO DAILY #30 tab 10/14/21 Sodium Bicarbonate Tab 650 mg PO DAILY #30 tab 10/14/21 amLODIPine [Norvasc] 5 mg PO DAILY #30 tab 10/14/21 Ondansetron Odt [Zofran Odt] 4 mg PO Q8HR PRN #6 tab 03/15/22 Allergies Allergy/AdvReac Type Severity Reaction Status Date / Time Penicillins Allergy Anaphylaxis Verified 03/15/22 03:14 spironolactone Allergy Anaphylaxis Verified 03/15/22 03:14 Sulfa (Sulfonamide Allergy Anaphylaxis Verified 03/15/22 03:14 Antibiotics) Review of Systems ROS Statement: Those systems with pertinent positive or pertinent negative responses have been documented in the HPI. ROS Other: All systems not noted in ROS Statement are negative. Past Medical History Past Medical History: Atrial Fibrillation, Asthma, Coronary Artery Disease (CAD), Heart Failure, COPD, Diabetes Mellitus, GERD/Reflux, Hyperlipidemia, Hypertension, Myocardial Infarction ([place]), Renal Disease, Sleep Apnea/CPAP/BIPAP Additional Past Medical History / Comment(s): Pt recently admitted to [facility] on 12/29/21 with CHF. Other hx: NIDDM type II, CKD stage III, chronic anemia, CHLOE without device d/t insurance issues, mild COPD, BEAV[place] bilateral ears, gout. Last Myocardial Infarction Date:: 2008 History of Any Multi-Drug Resistant Organisms: MRSA Date of last positivie culture/infection: 10/2020 MDRO Source:: Right eye Past Surgical History: Adenoidectomy, Coronary Bypass/CABG, Heart Catheterization, Heart Catheterization With Stent, Tonsillectomy Additional Past Surgical History / Comment(s): cardiac stents x 5, quad bipass open heart 10/07/2021 Past Anesthesia/Blood Transfusion Reactions: Postoperative Nausea & Vomiting (PONV) Date of Last Stent Placement:: 2008 Past Psychological History: ADD/ADHD, Anxiety, Bipolar, Depression, PTSD Smoking Status: Former smoker Past Alcohol Use History: None Reported Past Drug Use History: None Reported - Past Family History Father Family Medical History: Cancer, Coronary Artery Disease (CAD), Myocardial Infarction ([place]) Additional Family Medical History / Comment(s): at age 68 from mesothelioma, diagnosis of heart disease age of 60 Mother Family Medical History: Cancer, Coronary Artery Disease (CAD), Diabetes Mellitus, Liver Disease, Myocardial Infarction ([place]) Additional Family Medical History / Comment(s): from liver cancer, diagnosed with heart disease before the age of 60 General Exam Limitations: no limitations General appearance: alert, in no apparent distress Head exam: Present: atraumatic, normocephalic, normal inspection Eye exam: Present: normal appearance, EOMI Neck exam: Present: normal inspection Respiratory exam: Present: normal lung sounds bilaterally. Absent: respiratory distress, wheezes, rales, rhonchi, stridor Cardiovascular Exam: Present: regular rate, normal rhythm, normal heart sounds. Absent: systolic murmur, diastolic murmur, rubs, gallop, clicks GI/Abdominal exam: Present: soft, normal bowel sounds. Absent: distended, t enderness, guarding, rebound, rigid Neurological exam: Present: alert, oriented X3, CN II-XII intact Psychiatric exam: Present: normal affect, normal mood Skin exam: Present: warm, dry, intact, normal color. Absent: rash Course Vital Signs 03/15/22 03/15/22 03/15/22 03:12 08:14 09:18 Temperature 97.8 F 98.1 F Pulse Rate 81 80 85 Respiratory 18 18 18 Rate Blood Pressure 167/96 154/98 150/100 O2 Sat by Pulse 96 97 98 Oximetry 03/15/22 09:21 Temperature 98.1 F Pulse Rate 85 Respiratory 18 Rate Blood Pressure 150/100 O2 Sat by Pulse 98 Oximetry Medical Decision Making - Medical Decision Making Patient is a 51-year-old male presenting with chief complaint of nausea and vomi ting. Patient admits to a history of GERD, and states that earlier it felt like his mouth and throat were full of acid. Patient also admits to some postnasal drip which has caused some nausea and vomiting. CBC is unremarkable. 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 BUN and creatinine are consistent with his baseline. KUB x-rays negative. Patient is given Pepcid, Reglan, and fluids. He reports improvement on reassessment. He appears stable for discharge with outpatient follow-up at this time. Follow-up with PCP in one to 2 days. Report back to ER if any new or worsening symptoms. I discussed return parameters answered all questions. Patient conveyed verbal understanding and agreed to the plan. I discussed this case my attending Dr. Vernon. - Lab Data Result diagrams: 03/15/22 06:45 03/15/22 06:45 Lab Results 03/15/22 03/15/22 Range/Units 06:45 06:45 WBC 6.0 (3.8-10.6) k/uL RBC 3.78 L (4.30-5.90) m/uL Hgb 11.5 L (13.0-17.5) gm/dL Hct 34.9 L (39.0-53.0) % MCV 92.2 (80.0-100.0) fL MCH 30.3 (25.0-35.0) pg MCHC 32.9 (31.0-37.0) g/dL RDW 17.1 H (11.5-15.5) % Plt Count 167 (150-450) k/uL MPV 7.2 Neutrophils % 73 % Lymphocytes % 15 % Monocytes % 5 % Eosinophils % 4 % Basophils % 1 % Neutrophils # 4.4 (1.3-7.7) k/uL Lymphocytes # 0.9 L (1.0-4.8) k/uL Monocytes # 0.3 (0-1.0) k/uL Eosinophils # 0.2 (0-0.7) k/uL Basophils # 0.1 (0-0.2) k/uL Hypochromasia Slight Anisocytosis Slight Sodium 140 (137-145) mmol/L Potassium 5.2 H (3.5-5.1) mmol/L Chloride 108 H (98-107) mmol/L Carbon Dioxide 23 (22-30) mmol/L Anion Gap 9 mmol/L BUN 55 H (9-20) mg/dL Creatinine 2.23 H (0.66-1.25) mg/dL Est GFR (CKD-EPI)AfAm 38 (>60 ml/min/1.73 sqM) Est GFR (CKD-EPI)NonAf 33 (>60 ml/min/1.73 sqM) Glucose 177 H (74-99) mg/dL Calcium 8.2 L (8.4-10.2) mg/dL Total Bilirubin 0.5 (0.2-1.3) mg/dL AST 25 (17-59) U/L ALT 12 (4-49) U/L Alkaline Phosphatase 72 (38-126) U/L Total Protein 6.5 (6.3-8.2) g/dL Albumin 3.8 (3.5-5.0) g/dL Amylase 54 (30-110) U/L Lipase 163 (23-300) U/L Disposition Clinical Impression: Nausea and vomiting Disposition: HOME SELF-CARE Condition: Good Instructions (If sedation given, give patient instructions): Diet for Stomach Ulcers and Gastritis (ED), GERD (Gastroesophageal Reflux Disease) (ED), Acute Nausea and Vomiting (ED) Additional Instructions: Follow-up with PCP in one to 2 days. Report back to ER with any new or worsening symptoms. Take medication as prescribed. Take [id number] Pepcid as needed for symptomatic management. Prescriptions: Ondansetron Odt [Zofran Odt] 4 mg PO Q8HR PRN #6 tab PRN Reason: Nausea Is patient prescribed a controlled substance at d/c from ED?: No Referrals: Edwin Hansen MD [Primary Care Provider] - 1-2 days Time of Disposition: 09:02
--- NOTE | 2022-03-15 07:51 | XR ---
EXAMINATION TYPE: XR KUB DATE OF EXAM: 03/15/2022 6:53 AM INDICATION: Patient age:Male; 51 years old; Reason for study: pain; COMPARISON: CT chest 11/10/2021. TECHNIQUE: One radiographic view of the abdomen was obtained. FINDINGS: The bowel gas pattern is nonspecific without dilated loops of small or large bowel. There i s no evidence for organomegaly or pneumoperitoneum. The osseous structures are intact. Opacity proje cting over the gallbladder fossa measuring up to 13 cm. Fecal material and gas are demonstrated throu ghout the colon and rectum. IMPRESSION: 1. Nonspecific bowel gas pattern. 2. Right upper quadrant opacity consistent with known cholelithiasis.
[2022-03-15 08:05] LABS: Anisocytosis Slight; Basophils # (A) 0.1 k/uL (0-0.2); Basophils % (A) 1 %; Eosinophils # (A) 0.2 k/uL (0-0.7); Eosinophils % (A) 4 %; HCT 34.9 % (39.0-53.0); HGB 11.5 gm/dL (13.0-17.5); Hypochromasia Slight; Lymphocytes # (A) 0.9 k/uL (1.0-4.8); Lymphocytes % (A) 15 %; MCH 30.3 pg (25.0-35.0); MCHC 32.9 g/dL (31.0-37.0); MCV 92.2 fL (80.0-100.0); Mean Platelet Volume 7.2; Monocytes # (A) 0.3 k/uL (0-1.0); Monocytes % (A) 5 %; Neutrophils # (A) 4.4 k/uL (1.3-7.7); Neutrophils % (A) 73 %; Platelet Count 167 k/uL (150-450); RBC 3.78 m/uL (4.30-5.90); RDW 17.1 % (11.5-15.5)
[2022-03-15 08:12] LABS: Albumin 3.8 g/dL (3.5-5.0); Calcium 8.2 mg/dL (8.4-10.2); Total Bilirubin 0.5 mg/dL (0.2-1.3); Total Protein 6.5 g/dL (6.3-8.2)
[2022-03-15] MEDS ORDERED: FAMOTIDINE 20 MG/2 ML VIAL IV STA (08:23)
[2022-03-15 08:50] LABS: Potassium 5.2 mmol/L (3.5-5.1)
[2022-03-15 09:19] VITALS: BP 150/100; PULSE 85; TEMP 98.1
== END 2022-03-15 09:21 | disposition home or self-care (01) ==
LOC: EC 03:10
DX: R11.2 Nausea with vomiting, unspecified (principal); J44.9 Chronic obstructive pulmonary disease, unspecified; I25.10 Atherosclerotic heart disease of native coronary artery without angina pectoris; I50.9 Heart failure, unspecified; I25.2 Old myocardial infarction; K21.9 Gastro-esophageal reflux disease without esophagitis; E78.5 Hyperlipidemia, unspecified; I48.91 Unspecified atrial fibrillation; I13.0 Hypertensive heart and chronic kidney disease with heart failure and stage 1 through stage 4 chronic kidney disease, or unspecified chronic kidney disease; N18.30 Chronic kidney disease, stage 3 unspecified; E11.22 Type 2 diabetes mellitus with diabetic chronic kidney disease; Z87.891 Personal history of nicotine dependence; Z95.1 Presence of aortocoronary bypass graft; Z88.0 Allergy status to penicillin; Z88.2 Allergy status to sulfonamides; Z79.899 Other long term (current) drug therapy; Z79.84 Long term (current) use of oral hypoglycemic drugs; Z79.02 Long term (current) use of antithrombotics/antiplatelets; Z79.82 Long term (current) use of aspirin; Z79.51 Long term (current) use of inhaled steroids
CPT/HCPCS: 36415; 80053; 82150; 83690; 85025; 74018; 99284; 96374; 96361; J2765

== ENCOUNTER 2022-03-25 22:44 | Emergency (ER) | payer OTHER ==
[2022-03-25] MEDS ORDERED: ONDANSETRON 4 MG/2 ML VIAL IVP STA (23:35)
[2022-03-25] MEDS ORDERED: SODIUM CHLORIDE 0.9% 1,000 ML IV STA ×2 (23:35)
--- NOTE | 2022-03-25 23:43 | ED ---
Nausea/Vomiting/Diarrhea HPI - General Chief complaint: Nausea/Vomiting/Diarrhea Stated complaint: vomiting Time Seen by Provider: 03/25/22 23:34 Source: patient, RN notes reviewed, old records reviewed Mode of arrival: ambulatory Limitations: no limitations - History of Present Illness Initial comments: This is a 51-year-old male to the emergency department for evaluation patient presents today for evaluation regards to nausea vomiting not feeling well. Patient states he does consistent with illness quite often he thinks it may related to a chronic cough that he has. He also has a lot of sick contacts including a urinalysis is multiple left similar symptoms. Patient has no fevers. Patient doesn't long medical history as well as psychiatric history MD complaint: nausea, vomiting -: hour(s) Description of Vomiting: watery Description of Diarrhea: water Location: diffuse Radiation: none Severity: mild Severity scale (1-10): 2 Quality: cramping Consistency: intermittent, now resolved Improves with: none Worsens with: none Context: sick contacts Associated Symptoms: loss of appetite, nausea/vomiting - Related Data Home Medications Medication Instructions Recorded Confirmed Nitroglycerin Sl Tabs [Nitrostat] 0.4 mg SL Q5M PRN 11/02/21 01/12/22 Aspirin EC [Ecotrin Low Dose] 81 mg PO DAILY 11/10/21 01/12/22 Albuterol Sulfate [Albuterol 2 puff INHALATION RT-QID PRN 11/28/21 01/12/22 Sulfate Hfa] Budesonide/Formoterol Fumarate 2 puff INHALATION RT-BID 11/28/21 01/12/22 [Symbicort 160-4.5 Mcg Inhaler] Clopidogrel [Plavix] 75 mg PO DAILY 12/29/21 01/12/22 Empagliflozin [Jardiance] 25 mg PO DAILY 12/29/21 01/12/22 Sacubitril/Valsartan [Entresto 24 1 tab PO BID 12/29/21 01/12/22 mg-26 mg Tablet] Furosemide [Lasix] 40 mg PO DAILY 01/12/22 01/12/22 Metoprolol Tartrate [Lopressor] 50 mg PO DAILY 01/12/22 01/12/22 Pantoprazole Sodium [Protonix] 40 mg PO DAILY 01/12/22 01/12/22 Dulaglutide [Trulicity] 0.75 mg SQ Q7DAYS 03/12/22 03/12/22 metFORMIN HCL [Glucophage] 500 mg PO BID 03/12/22 03/12/22 Previous Rx's Medication Instructions Recorded Acetaminophen Tab [Tylenol] 650 mg PO Q4HR PRN tab 10/14/21 Ascorbic Acid [Vitamin C] 500 mg PO BID-W/MEALS #60 tab 10/14/21 Atorvastatin [Lipitor] 80 mg PO HS #30 tab 10/14/21 Ferrous Sulfate [Iron (65 MG 325 mg PO BID-W/MEALS #60 tab 10/14/21 Elemental)] Potassium Chloride ER [K-Dur 10] 10 meq PO DAILY #30 tab 10/14/21 Sertraline [Zoloft] 50 mg PO DAILY #30 tab 10/14/21 Sodium Bicarbonate Tab 650 mg PO DAILY #30 tab 10/14/21 amLODIPine [Norvasc] 5 mg PO DAILY #30 tab 10/14/21 Ondansetron Odt [Zofran Odt] 4 mg PO Q8HR PRN #6 tab 03/15/22 Allergies Allergy/AdvReac Type Severity Reaction Status Date / Time Penicillins Allergy Anaphylaxis Verified 03/25/22 22:49 spironolactone Allergy Anaphylaxis Verified 03/25/22 22:49 Sulfa (Sulfonamide Allergy Anaphylaxis Verified 03/25/22 22:49 Antibiotics) Review of Systems ROS Statement: Those systems with pertinent positive or pertinent negative responses have been documented in the HPI. ROS Other: All systems not noted in ROS Statement are negative. Past Medical History Past Medical History: Atrial Fibrillation, Asthma, Coronary Artery Disease (CAD), Heart Failure, COPD, Diabetes Mellitus, GERD/Reflux, Hyperlipidemia, Hypertension, Myocardial Infarction ([place]), Renal Disease, Sleep Apnea/CPAP/BIPAP Additional Past Medical History / Comment(s): Pt recently admitted to [facility] on with CHF. Other hx: NIDDM type II, CKD stage III, chronic anemia, CHLOE without device d/t insurance issues, mild COPD, [place] bilateral ears, gout. Last Myocardial Infarction Date:: 2008 History of Any Multi-Drug Resistant Organisms: MRSA Date of last positivie culture/infection: 10/2020 MDRO Source:: Right eye Past Surgical History: Adenoidectomy, Coronary Bypass/CABG, Heart Catheterization, Heart Catheterization With Stent, Tonsillectomy Additional Past Surgical History / Comment(s): cardiac stents x 5, quad bipass open heart 10/07/2021 Past Anesthesia/Blood Transfusion Reactions: Postoperative Nausea & Vomiting (PONV) Date of Last Stent Placement:: 2008 Past Psychological History: ADD/ADHD, Anxiety, Bipolar, Depression, PTSD Smoking Status: Former smoker Past Alcohol Use History: None Reported Past Drug Use History: None Reported - Past Family History Father Family Medical History: Cancer, Coronary Artery Disease (CAD), Myocardial Infarction ([place]) Additional Family Medical History / Comment(s): at age 68 from mesothelioma, diagnosis of heart disease age of 60 Mother Family Medical History: Cancer, Coronary Artery Disease (CAD), Diabetes Mellitus, Liver Disease, Myocardial Infarction ([place]) Additional Family Medical History / Comment(s): from liver cancer, diagnosed with heart disease before the age of 60 General Exam Limitations: no limitations General appearance: alert, in no apparent distress Head exam: Present: atraumatic, normocephalic, normal inspection Eye exam: Present: normal appearance, PERRL, EOMI. Absent: scleral icterus, conjunctival injection, periorbital swelling ENT exam: Present: normal exam, mucous membranes moist Neck exam: Present: normal inspection. Absent: tenderness, meningismus, lymphadenopathy Respiratory exam: Present: normal lung sounds bilaterally. Absent: respiratory distress, wheezes, rales, rhonchi, stridor Cardiovascular Exam: Present: regular rate, normal rhythm, normal heart sounds. Absent: systolic murmur, diastolic murmur, rubs, gallop, clicks GI/Abdominal exam: Present: soft, normal bowel sounds. Absent: distended, tenderness, guarding, rebound, rigid Extremities exam: Present: normal inspection, full ROM, normal capillary refill. Absent: tenderness, pedal edema, joint swelling, calf tenderness Back exam: Present: normal inspection Neurological exam: Present: alert, oriented X3, CN II-XII intact Psychiatric exam: Present: normal affect, normal mood Skin exam: Present: warm, dry, intact, normal color. Absent: rash Course Vital Signs 03/25/22 03/26/22 22:44 01:39 Temperature 98.3 F Pulse Rate 95 91 Respiratory 20 18 Rate Blood Pressure 144/95 131/73 O2 Sat by Pulse 96 95 Oximetry - Reevaluation(s) Reevaluation #1: 03/26/22 01:51 Medical record is reviewed 03/26/22 01:51 History of multiple visits for same issue Reevaluation #2: 03/26/22 01:51 Symptoms are improved Reevaluation #3: 03/26/22 01:51 Patient informed results and questions are answered Medical Decision Making - Medical Decision Making 51 male to the emergency department patient has not vomited since arrival to the ER. Patient does improved currently and can be discharged home for evaluation patient with nausea and vomiting here in the emergency room. - Lab Data Result diagrams: 03/26/22 00:04 03/26/22 00:04 Lab Results 03/26/22 03/26/22 03/26/22 Range/Units 00:04 00:04 00:04 WBC 5.2 (3.8-10.6) k/uL RBC 3.92 L (4.30-5.90) m/uL Hgb 11.6 L (13.0-17.5) gm/dL Hct 37.2 L (39.0-53.0) % MCV 94.9 (80.0-100.0) fL MCH 29.7 (25.0-35.0) pg MCHC 31.2 (31.0-37.0) g/dL RDW 17.0 H (11.5-15.5) % Plt Count 194 (150-450) k/uL MPV 8.2 Neutrophils % 70 % Lymphocytes % 18 % Monocytes % 5 % Eosinophils % 4 % Basophils % 1 % Neutrophils # 3.6 (1.3-7.7) k/uL Lymphocytes # 0.9 L (1.0-4.8) k/uL Monocytes # 0.2 (0-1.0) k/uL Eosinophils # 0.2 (0-0.7) k/uL Basophils # 0.0 (0-0.2) k/uL Hypochromasia Moderate Anisocytosis Slight Sodium 140 (137-145) mmol/L Potassium 4.8 (3.5-5.1) mmol/L Chloride 105 (98-107) mmol/L Carbon Dioxide 25 (22-30) mmol/L Anion Gap 10 mmol/L BUN 43 H (9-20) mg/dL Creatinine 2.74 H (0.66-1.25) mg/dL Est GFR (CKD-EPI)AfAm 29 (>60 ml/min/1.73 sqM) Est GFR (CKD-EPI)NonAf 26 (>60 ml/min/1.73 sqM) Glucose 232 H (74-99) mg/dL Plasma Lactic Acid Mak 2.3 H* (0.7-2.0) mmol/L Calcium 9.0 (8.4-10.2) mg/dL Phosphorus 3.0 (2.5-4.5) mg/dL Magnesium 2.0 (1.6-2.3) mg/dL Total Bilirubin 0.5 (0.2-1.3) mg/dL AST 23 (17-59) U/L ALT 16 (4-49) U/L Alkaline Phosphatase 87 (38-126) U/L Troponin I (0.000-0.034) ng/mL Total Protein 6.7 (6.3-8.2) g/dL Albumin 4.2 (3.5-5.0) g/dL Lipase 98 (23-300) U/L 03/26/22 Range/Units 00:04 WBC (3.8-10.6) k/uL RBC (4.30-5.90) m/uL Hgb (13.0-17.5) gm/dL Hct (39.0-53.0) % MCV (80.0-100.0) fL MCH (25.0-35.0) pg MCHC (31.0-37.0) g/dL RDW (11.5-15.5) % Plt Count (150-450) k/uL MPV Neutrophils % % Lymphocytes % % Monocytes % % Eosinophils % % Basophils % % Neutrophils # (1.3-7.7) k/uL Lymphocytes # (1.0-4.8) k/uL Monocytes # (0-1.0) k/uL Eosinophils # (0-0.7) k/uL Basophils # (0-0.2) k/uL Hypochromasia Anisocytosis Sodium (137-145) mmol/L Potassium (3.5-5.1) mmol/L Chloride (98-107) mmol/L Carbon Dioxide (22-30) mmol/L Anion Gap mmol/L BUN (9-20) mg/dL Creatinine (0.66-1.25) mg/dL Est GFR (CKD-EPI)AfAm (>60 ml/min/1.73 sqM) Est GFR (CKD-EPI)NonAf (>60 ml/min/1.73 sqM) Glucose (74-99) mg/dL Plasma Lactic Acid Mak (0.7-2.0) mmol/L Calcium (8.4-10.2) mg/dL Phosphorus (2.5-4.5) mg/dL Magnesium (1.6-2.3) mg/dL Total Bilirubin (0.2-1.3) mg/dL AST (17-59) U/L ALT (4-49) U/L Alkaline Phosphatase (38-126) U/L Troponin I 0.033 (0.000-0.034) ng/mL Total Protein (6.3-8.2) g/dL Albumin (3.5-5.0) g/dL Lipase (23-300) U/L - EKG Data -: EKG Interpreted by Me (EKG is sinus rhythm 89 NC 196 QRS 44 QTC 434) - Radiology Data Radiology results: report reviewed (X-ray KUB is negative for acute disease), image reviewed Disposition Clinical Impression: Nausea and vomiting Disposition: HOME SELF-CARE Condition: Good Instructions (If sedation given, give patient instructions): Acute Nausea and Vomiting (ED) Is patient prescribed a controlled substance at d/c from ED?: No Referrals: Edwin Hansen MD [Primary Care Provider] - 1-2 days
[2022-03-25] MEDS ORDERED: LORAZEPAM IV STA (23:48)
[2022-03-25] MEDS ORDERED: BENZONATATE 100 MG CAP PO STA (23:48)
--- NOTE | 2022-03-26 00:11 | XR ---
EXAMINATION TYPE: XR KUB portable DATE OF EXAM: 03/25/2022 COMPARISON: NONE HISTORY: Nausea and vomiting TECHNIQUE: 2 views FINDINGS: The bowel gas pattern is normal. No sign of intestinal obstruction or pneumoperitoneum. Fec al pattern is normal. No sign of a mass. Lung bases are clear. No calcification seen over the kidneys . IMPRESSION: Nonacute abdomen. No adverse change.
[2022-03-26 00:35] LABS: Anisocytosis Slight; Basophils % (A) 1 %; Eosinophils # (A) 0.2 k/uL (0-0.7); Eosinophils % (A) 4 %; HCT 37.2 % (39.0-53.0); HGB 11.6 gm/dL (13.0-17.5); Hypochromasia Moderate; Lymphocytes # (A) 0.9 k/uL (1.0-4.8); Lymphocytes % (A) 18 %; MCH 29.7 pg (25.0-35.0); MCHC 31.2 g/dL (31.0-37.0); MCV 94.9 fL (80.0-100.0); Mean Platelet Volume 8.2; Monocytes # (A) 0.2 k/uL (0-1.0); Monocytes % (A) 5 %; Neutrophils # (A) 3.6 k/uL (1.3-7.7); Neutrophils % (A) 70 %; Platelet Count 194 k/uL (150-450); RBC 3.92 m/uL (4.30-5.90); WBC 5.2 k/uL (3.8-10.6)
[2022-03-26 00:56] LABS: Albumin 4.2 g/dL (3.5-5.0); Potassium 4.8 mmol/L (3.5-5.1); Total Bilirubin 0.5 mg/dL (0.2-1.3); Total Protein 6.7 g/dL (6.3-8.2)
[2022-03-26 01:44] VITALS: RESP 18
[2022-03-26 02:10] VITALS: BP 128/78; PULSE 85; TEMP 97.6
== END 2022-03-26 02:14 | disposition home or self-care (01) ==
LOC: EC 22:44
DX: R11.2 Nausea with vomiting, unspecified (principal); J45.909 Unspecified asthma, uncomplicated; E11.9 Type 2 diabetes mellitus without complications; I11.0 Hypertensive heart disease with heart failure; E78.5 Hyperlipidemia, unspecified; K21.9 Gastro-esophageal reflux disease without esophagitis; Z79.83 Long term (current) use of bisphosphonates; Z87.891 Personal history of nicotine dependence; Z88.0 Allergy status to penicillin; Z88.2 Allergy status to sulfonamides; Z88.3 Allergy status to other anti-infective agents
CPT/HCPCS: 36415; 93005; 80053; 83605; 83690; 83735; 84100; 84484; 85025; 74018; 99284; 96374; 96375; 96361; J2060; J2405

== ENCOUNTER 2022-04-06 00:32 | Inpatient (IN) | payer OTHER ==
[2022-04-06] MEDS ORDERED: ONDANSETRON 4 MG/2 ML VIAL IVP STA (00:49)
[2022-04-06] MEDS ORDERED: SODIUM CHLORIDE 0.9% 1,000 ML IV STA (00:49)
[2022-04-06] MEDS ORDERED: FAMOTIDINE 20 MG/2 ML VIAL IV STA (00:50)
[2022-04-06] MEDS ORDERED: MAG HYDROX/AL HYDROX/SIMETH 30 ML, HYOSCYAMINE ELIXIR 10 ML, LIDOCAINE VISCOUS 2% 10 ML PO STA ×3 (00:50)
--- NOTE | 2022-04-06 00:55 | ED ---
Nausea/Vomiting/Diarrhea HPI - General Chief complaint: Nausea/Vomiting/Diarrhea Stated complaint: Vomiting, Nosebleed Time Seen by Provider: 04/06/22 00:35 Source: patient, RN notes reviewed Mode of arrival: ambulatory Limitations: no limitations - History of Present Illness Initial comments: This is a pleasant 51-year-old male with a history of multiple medical issues as listed in the medical record. Patient presents to the emergency department today with chief complaint of nausea and vomiting which started about 11 PM. Patient describing watery vomitus then dry heaving. Patient states she also got a nosebleed from the left side of his nose which seems to have stopped. Patient denying any chest pain or shortness of breath. He is describing abdominal discomfort which she has had in the past. Patient has been seen here several times for similar symptomology. Patient is a former cigarette smoker. Denies alcohol or drug abuse. patient is on Plavix and aspirin daily. No headache, no fever or chills, no changes in vision or hearing, no sore throat or difficulty with speech, no neck pain, no chest pain or shortness of breath,, no changes in urination or bowel movements, no numbness or tingling, no extremity pain, no skin rashes or lesions. MD complaint: nausea, vomiting - Related Data Home Medications Medication Instructions Recorded Confirmed Nitroglycerin Sl Tabs [Nitrostat] 0.4 mg SL Q5M PRN 11/02/21 01/12/22 Aspirin EC [Ecotrin Low Dose] 81 mg PO DAILY 11/10/21 01/12/22 Albuterol Sulfate [Albuterol 2 puff INHALATION RT-QID PRN 11/28/21 01/12/22 Sulfate Hfa] Budesonide/Formoterol Fumarate 2 puff INHALATION RT-BID 11/28/21 01/12/22 [Symbicort 160-4.5 Mcg Inhaler] Clopidogrel [Plavix] 75 mg PO DAILY 12/29/21 01/12/22 Empagliflozin [Jardiance] 25 mg PO DAILY 12/29/21 01/12/22 Sacubitril/Valsartan [Entresto 24 1 tab PO BID 12/29/21 01/12/22 mg-26 mg Tablet] Furosemide [Lasix] 40 mg PO DAILY 01/12/22 01/12/22 Metoprolol Tartrate [Lopressor] 50 mg PO DAILY 01/12/22 01/12/22 Pantoprazole Sodium [Protonix] 40 mg PO DAILY 01/12/22 01/12/22 Dulaglutide [Trulicity] 0.75 mg SQ Q7DAYS 03/12/22 03/12/22 metFORMIN HCL [Glucophage] 500 mg PO BID 03/12/22 03/12/22 Previous Rx's Medication Instructions Recorded Acetaminophen Tab [Tylenol] 650 mg PO Q4HR PRN tab 10/14/21 Ascorbic Acid [Vitamin C] 500 mg PO BID-W/MEALS #60 tab 10/14/21 Atorvastatin [Lipitor] 80 mg PO HS #30 tab 10/14/21 Ferrous Sulfate [Iron (65 MG 325 mg PO BID-W/MEALS #60 tab 10/14/21 Elemental)] Potassium Chloride ER [K-Dur 10] 10 meq PO DAILY #30 tab 10/14/21 Sertraline [Zoloft] 50 mg PO DAILY #30 tab 10/14/21 Sodium Bicarbonate Tab 650 mg PO DAILY #30 tab 10/14/21 amLODIPine [Norvasc] 5 mg PO DAILY #30 tab 10/14/21 Ondansetron Odt [Zofran Odt] 4 mg PO Q8HR PRN #6 tab 03/15/22 Allergies Allergy/AdvReac Type Severity Reaction Status Date / Time Penicillins Allergy Anaphylaxis Verified 04/06/22 00:37 spironolactone Allergy Anaphylaxis Verified 04/06/22 00:37 Sulfa (Sulfonamide Allergy Anaphylaxis Verified 04/06/22 00:37 Antibiotics) Review of Systems ROS Statement: Those systems with pertinent positive or pertinent negative responses have been documented in the HPI. ROS Other: All systems not noted in ROS Statement are negative. Past Medical History Past Medical History: Atrial Fibrillation, Asthma, Coronary Artery Disease (CAD), Heart Failure, COPD, Diabetes Mellitus, GERD/Reflux, Hyperlipidemia, Hypertension, Myocardial Infarction (DE), Renal Disease, Sleep Apnea/CPAP/BIPAP Additional Past Medical History / Comment(s): Pt recently admitted to [facility] on 12/29/21 with CHF. Other hx: NIDDM type II, CKD stage III, chronic anemia, CHLOE without device d/t insurance issues, mild COPD, [place] DEE-NI' bilateral ears, gout. Last Myocardial Infarction Date:: 2008 History of Any Multi-Drug Resistant Organisms: MRSA Date of last positivie culture/infection: 10/2020 MDRO Source:: Right eye Past Surgical History: Adenoidectomy, Coronary Bypass/CABG, Heart Catheterization, Heart Catheterization With Stent, Tonsillectomy Additional Past Surgical History / Comment(s): cardiac stents x 5, quad bipass open heart 10/07/2021 Past Anesthesia/Blood Transfusion Reactions: Postoperative Nausea & Vomiting (PONV) Date of Last Stent Placement:: 2008 Past Psychological History: ADD/ADHD, Anxiety, Bipolar, Depression, PTSD Smoking Status: Former smoker Past Alcohol Use History: None Reported Past Drug Use History: None Reported - Past Family History Father Family Medical History: Cancer, Coronary Artery Disease (CAD), Myocardial Infarction (DE) Additional Family Medical History / Comment(s): at age 68 from mesothe lioma, diagnosis of heart disease age of 60 Mother Family Medical History: Cancer, Coronary Artery Disease (CAD), Diabetes Mellitus, Liver Disease, Myocardial Infarction (DE) Additional Family Medical History / Comment(s): from liver cancer, diagnosed with heart disease before the age of 60 General Exam - General Exam Comments Initial Comments: Assessment stable, patient afebrile. Patient appears mildly ill but not toxic. Limitations: no limitations General appearance: alert, in no apparent distress Head exam: Present: atraumatic, normocephalic, normal inspection Eye exam: Present: normal appearance, PERRL, EOMI. Absent: scleral icterus, conjunctival injection, periorbital swelling ENT exam: Present: normal exam, normal oropharynx, mucous membranes moist, normal external ear exam, other (Evidence of recent anterior epistaxis left no stril. Hemostasis was eventually obtained. No airway problems). Absent: mucous membranes dry Neck exam: Present: normal inspection, full ROM. Absent: tenderness, meningism us, lymphadenopathy Respiratory exam: Present: normal lung sounds bilaterally. Absent: respiratory distress, wheezes, rales, rhonchi, stridor, chest wall tenderness, accessory muscle use, decreased breath sounds, prolonged expiratory Cardiovascular Exam: Present: regular rate, normal rhythm, normal heart sounds. Absent: systolic murmur, diastolic murmur, rubs, gallop, clicks GI/Abdominal exam: Present: soft, tenderness (Minimal epigastric tenderness to palpation), normal bowel sounds. Absent: distended, guarding, rebound, rigid Extremities exam: Present: normal inspection, full ROM, normal capillary refill. Absent: tenderness, pedal edema, joint swelling, calf tenderness Back exam: Present: normal inspection Neurological exam: Present: alert, oriented X3, CN II-XII intact Psychiatric exam: Present: normal affect, normal mood Skin exam: Present: warm, dry, intact, normal color. Absent: rash Course Vital Signs 04/06/22 04/06/22 04/06/22 00:38 01:06 02:27 Temperature 98.2 F Pulse Rate 78 74 79 Respiratory 16 Rate Blood Pressure 114/76 131/84 151/90 O2 Sat by Pulse 95 97 Oximetry - Reevaluation(s) Reevaluation #1: 04/06/22 01:58 Medical record is reviewed Symptoms are improved here in the emergency department Patient is informed of results and questions answered Patient in no distress Patient shows evidence of pancreatitis. We'll add on a alcohol level. Patient to be admitted Reevaluation #2: 04/06/22 02:08 Patient lipase elevated at 1035. Mild bump in amylase. Glucose 156. Creatinine 3.00, BUN 57 Remainder of the CMP is essentially normal. CBC is normal aside from mild anemia with a hemoglobin of 12.2 and hematocrit 37.9.. Coagulation studies are normal. Reevaluation #3: 04/06/22 02:26 Medical record is reviewed Symptoms are stable, patient in no significant distress. Patient is informed of results and questions answered Patient in no distress No subsequent vomiting. Patient's Bisap score is 1 - Consultations Consultation #1: Call placed for the patient's PCP, Dr. Hansen Consultation #2: Still awaiting callback from the patient's PCP at 3:04 AM. Medical Decision Making - Medical Decision Making Patient presents to return with recurrent vomiting and nausea. Patient has been seen here several times for this. Patient has had no recent endoscopy. Computed tomography scan ordered, alcohol, lactic acid, triglycerides ordered. Hydration, pain medication. Patient be admitted for otitis. Patient's troponin did come back at 0.036. However the patient has chronic renal failure which is actually somewhat worsened today. Likely the culprit of this elevated level. Essentially unchanged from previous level. On March 26 level was 0.033. - Lab Data Result diagrams: 04/06/22 00:40 04/06/22 00:40 Lab Results 04/06/22 04/06/22 04/06/22 Range/Units 00:40 00:40 00:40 WBC 9.3 (3.8-10.6) k/uL RBC 4.15 L (4.30-5.90) m/uL Hgb 12.2 L (13.0-17.5) gm/dL Hct 37.9 L (39.0-53.0) % MCV 91.3 (80.0-100.0) fL MCH 29.5 (25.0-35.0) pg MCHC 32.3 (31.0-37.0) g/dL RDW 15.9 H (11.5-15.5) % Plt Count 218 (150-450) k/uL MPV 8.5 Neutrophils % 81 % Lymphocytes % 9 % Monocytes % 5 % Eosinophils % 3 % Basophils % 1 % Neutrophils # 7.6 (1.3-7.7) k/uL Lymphocytes # 0.8 L (1.0-4.8) k/uL Monocytes # 0.4 (0-1.0) k/uL Eosinophils # 0.3 (0-0.7) k/uL Basophils # 0.1 (0-0.2) k/uL Hypochromasia Slight PT 10.5 (9.0-12.0) sec INR 1.0 (<1.2) APTT 23.3 (22.0-30.0) sec Sodium 139 (137-145) mmol/L Potassium 4.5 (3.5-5.1) mmol/L Chloride 101 (98-107) mmol/L Carbon Dioxide 27 (22-30) mmol/L Anion Gap 11 mmol/L BUN 57 H (9-20) mg/dL Creatinine 3.00 H (0.66-1.25) mg/dL Est GFR (CKD-EPI)AfAm 26 (>60 ml/min/1.73 sqM) Est GFR (CKD-EPI)NonAf 23 (>60 ml/min/1.73 sqM) Glucose 156 H (74-99) mg/dL Plasma Lactic Acid Mak (0.7-2.0) mmol/L Calcium 8.8 (8.4-10.2) mg/dL Magnesium 2.0 (1.6-2.3) mg/dL Total Bilirubin 0.6 (0.2-1.3) mg/dL AST 19 (17-59) U/L ALT 13 (4-49) U/L Alkaline Phosphatase 102 (38-126) U/L Troponin I (0.000-0.034) ng/mL Total Protein 6.9 (6.3-8.2) g/dL Albumin 4.2 (3.5-5.0) g/dL Amylase 138 H (30-110) U/L Lipase 1235 H (23-300) U/L Urine Color Urine Appearance (Clear) Urine pH (5.0-8.0) Ur Specific [place] (1.001-1.035) Urine Protein (Negative) Urine Glucose (UA) (Negative) Urine Ketones (Negative) Urine Blood (Negative) Urine Nitrite (Negative) Urine Bilirubin (Negative) Urine Urobilinogen (<2.0) mg/dL Ur Leukocyte Esterase (Negative) Serum Alcohol mg/dL 04/06/22 04/06/22 04/06/22 Range/Units 00:40 01:55 02:27 WBC (3.8-10.6) k/uL RBC (4.30-5.90) m/uL Hgb (13.0-17.5) gm/dL Hct (39.0-53.0) % MCV (80.0-100.0) fL MCH (25.0-35.0) pg MCHC (31.0-37.0) g/dL RDW (11.5-15.5) % Plt Count (150-450) k/uL MPV Neutrophils % % Lymphocytes % % Monocytes % % Eosinophils % % Basophils % % Neutrophils # (1.3-7.7) k/uL Lymphocytes # (1.0-4.8) k/uL Monocytes # (0-1.0) k/uL Eosinophils # (0-0.7) k/uL Basophils # (0-0.2) k/uL Hypochromasia PT (9.0-12.0) sec INR (<1.2) APTT (22.0-30.0) sec Sodium (137-145) mmol/L Potassium (3.5-5.1) mmol/L Chloride (98-107) mmol/L Carbon Dioxide (22-30) mmol/L Anion Gap mmol/L BUN (9-20) mg/dL Creatinine (0.66-1.25) mg/dL Est GFR (CKD-EPI)AfAm (>60 ml/min/1.73 sqM) Est GFR (CKD-EPI)NonAf (>60 ml/min/1.73 sqM) Glucose (74-99) mg/dL Plasma Lactic Acid Mak 2.0 (0.7-2.0) mmol/L Calcium (8.4-10.2) mg/dL Magnesium (1.6-2.3) mg/dL Total Bilirubin (0.2-1.3) mg/dL AST (17-59) U/L ALT (4-49) U/L Alkaline Phosphatase (38-126) U/L Troponin I 0.036 H* (0.000-0.034) ng/mL Total Protein (6.3-8.2) g/dL Albumin (3.5-5.0) g/dL Amylase (30-110) U/L Lipase (23-300) U/L Urine Color Yellow Urine Appearance Clear (Clear) Urine pH 5.5 (5.0-8.0) Ur Specific [place] 1.009 (1.001-1.035) Urine Protein Negative (Negative) Urine Glucose (UA) 3+ H (Negative) Urine Ketones Negative (Negative) Urine Blood Negative (Negative) Urine Nitrite Negative (Negative) Urine Bilirubin Negative (Negative) Urine Urobilinogen <2.0 (<2.0) mg/dL Ur Leukocyte Esterase Negative (Negative) Serum Alcohol mg/dL 04/06/22 Range/Units 02:27 WBC (3.8-10.6) k/uL RBC (4.30-5.90) m/uL Hgb (13.0-17.5) gm/dL Hct (39.0-53.0) % MCV (80.0-100.0) fL MCH (25.0-35.0) pg MCHC (31.0-37.0) g/dL RDW (11.5-15.5) % Plt Count (150-450) k/uL MPV Neutrophils % % Lymphocytes % % Monocytes % % Eosinophils % % Basophils % % Neutrophils # (1.3-7.7) k/uL Lymphocytes # (1.0-4.8) k/uL Monocytes # (0-1.0) k/uL Eosinophils # (0-0.7) k/uL Basophils # (0-0.2) k/uL Hypochromasia PT (9.0-12.0) sec INR (<1.2) APTT (22.0-30.0) sec Sodium (137-145) mmol/L Potassium (3.5-5.1) mmol/L Chloride (98-107) mmol/L Carbon Dioxide (22-30) mmol/L Anion Gap mmol/L BUN (9-20) mg/dL Creatinine (0.66-1.25) mg/dL Est GFR (CKD-EPI)AfAm (>60 ml/min/1.73 sqM) Est GFR (CKD-EPI)NonAf (>60 ml/min/1.73 sqM) Glucose (74-99) mg/dL Plasma Lactic Acid Mak (0.7-2.0) mmol/L Calcium (8.4-10.2) mg/dL Magnesium (1.6-2.3) mg/dL Total Bilirubin (0.2-1.3) mg/dL AST (17-59) U/L ALT (4-49) U/L Alkaline Phosphatase (38-126) U/L Troponin I (0.000-0.034) ng/mL Total Protein (6.3-8.2) g/dL Albumin (3.5-5.0) g/dL Amylase (30-110) U/L Lipase (23-300) U/L Urine Color Urine Appearance (Clear) Urine pH (5.0-8.0) Ur Specific [place] (1.001-1.035) Urine Protein (Negative) Urine Glucose (UA) (Negative) Urine Ketones (Negative) Urine Blood (Negative) Urine Nitrite (Negative) Urine Bilirubin (Negative) Urine Urobilinogen (<2.0) mg/dL Ur Leukocyte Esterase (Negative) Serum Alcohol <10 mg/dL - EKG Data EKG Comments: EKG done at 0057 and review by myself as well as ED attending physician reveals sinus rhythm with left axis deviation. Incomplete right bundle branch block. Nonspecific T-wave abnormality in the lateral leads, rate of 73, [place] interval 203 ms, remainder of the intervals are normal. When compared to the previous study from 03/26/2022 no significant changes represented. - Radiology Data Radiology results: report reviewed (Computed tomography scan pending upon admission. There was no evidence of pleural effusion on chest x-ray.), image reviewed Disposition Clinical Impression: Acute pancreatitis, Chronic renal failure, stage 4 (severe), Anterior epistaxis Disposition: ADMITTED IP TO THIS [facility] Condition: Fair Referrals: Edwin Hansen MD [Primary Care Provider] - 1-2 days Time of Disposition: 02:04 Decision to Admit Reason: Admit from EC Decision Time: 02:04
[2022-04-06 01:09] LABS: Basophils # (A) 0.1 k/uL (0-0.2); Basophils % (A) 1 %; Eosinophils # (A) 0.3 k/uL (0-0.7); Eosinophils % (A) 3 %; HCT 37.9 % (39.0-53.0); HGB 12.2 gm/dL (13.0-17.5); Hypochromasia Slight; Lymphocytes # (A) 0.8 k/uL (1.0-4.8); Lymphocytes % (A) 9 %; MCH 29.5 pg (25.0-35.0); MCHC 32.3 g/dL (31.0-37.0); MCV 91.3 fL (80.0-100.0); Mean Platelet Volume 8.5; Monocytes # (A) 0.4 k/uL (0-1.0); Monocytes % (A) 5 %; Neutrophils # (A) 7.6 k/uL (1.3-7.7); Neutrophils % (A) 81 %; Platelet Count 218 k/uL (150-450); RBC 4.15 m/uL (4.30-5.90); RDW 15.9 % (11.5-15.5); WBC 9.3 k/uL (3.8-10.6)
[2022-04-06 01:17] LABS: Partial Thromboplastin Time 23.3 sec (22.0-30.0); Prothrombin Time 10.5 sec (9.0-12.0)
[2022-04-06 01:33] LABS: Albumin 4.2 g/dL (3.5-5.0); Calcium 8.8 mg/dL (8.4-10.2); Potassium 4.5 mmol/L (3.5-5.1); Total Bilirubin 0.6 mg/dL (0.2-1.3); Total Protein 6.9 g/dL (6.3-8.2)
[2022-04-06] MEDS ORDERED: MORPHINE SULFATE 4 MG/ML SYRINGE IV STA (02:06)
[2022-04-06] MEDS ORDERED: MORPHINE SULFATE 4 MG/ML SYRINGE IV PRN (02:09)
[2022-04-06] MEDS ORDERED: ONDANSETRON 4 MG/2 ML VIAL IVP PRN (02:09)
[2022-04-06] MEDS ORDERED: NALOXONE 0.4 MG/ML 1 ML VIAL IV PRN (02:09)
[2022-04-06] MEDS: SODIUM CHLORIDE 0.9% 1,000 ML IV SCH ×3 (02:34→19:00)
[2022-04-06 02:40] LABS: Appearance,Urine Clear (Clear); Bilirubin,Urine Negative (Negative); Blood,Urine Negative (Negative); Color,Urine Yellow; Glucose,Urine (UA) 3+ (Negative); Ketones,Urine Negative (Negative); Leukocyte Esterase,Urine Negative (Negative); Nitrite,Urine Negative (Negative); PH, Urine 5.5 (5.0-8.0); Protein,Urine Negative (Negative); Specific Gravity,Urine 1.009 (1.001-1.035); Urobilinogen,Urine <2.0 mg/dL (<2.0)
[2022-04-06 02:44] LABS: Alcohol <10 mg/dL
--- NOTE | 2022-04-06 02:49 | CT ---
EXAM: CT Abdomen and Pelvis Without Intravenous Contrast CLINICAL HISTORY: ITS.REASON CT Reason: Epigastric abdominal pain TECHNIQUE: Axial computed tomography images of the abdomen and pelvis without intravenous contrast. CTDI is 26.6 mGy and DLP is 1514.4 mGy-cm. This CT exam was performed using one or more of the following dose reduction techniques: automated exposure control, adjustment of the mA and/or kV according to patient size, and/or use of iterative reconstruction technique. COMPARISON: 04/06/2022 plain film evaluation of the chest and abdomen. FINDINGS: Lung bases: Unremarkable. No mass. No consolidation. Pleural space: No pleural effusions are noted. Heart: Heart is normal in size. ABDOMEN: Liver: Diffuse fatty infiltration of the liver is noted. Gallbladder and bile ducts: Cholelithiasis. No ductal dilation. Pancreas: See below. Spleen: Spleen is normal in contour. Adrenals: The adrenal glands, the head, body, tail of the pancreas are unremarkable. Kidneys and ureters: No renal calculus or hydronephrosis. 0.3 cm nonobstructing calculus mid to lower pole region of the right kidney. Stomach and bowel: Moderate quantity of ingested material in the stomach. Moderate quantity of stool throughout the colon. There is distention of the rectosigmoid with stool suggestive of mild fecal impaction. No mucosal thickening. PELVIS: Appendix: The appendix is seen on coronal image 53 and is unremarkable. Bladder: Bladder is unremarkable. No stones. Reproductive: Unremarkable as visualized. ABDOMEN and PELVIS: Intraperitoneal space: Unremarkable. No free air. No significant fluid collection. Bones/joints: No spondylolysis. No acute fracture. No dislocation. Soft tissues: 3.4 cm umbilical hernia is noted containing mesenteric fat only. Ischiorectal fat is clean. Vasculature: Atherosclerotic disease of the abdominal aorta is noted without change in caliber. No abdominal aortic aneurysm. Lymph nodes: No pelvic or inguinal lymphadenopathy. Other findings: ASCVD. IMPRESSION: 1. Distention of the rectosigmoid with stool raising concern for fecal impaction. 2. Mild distention of the urinary bladder which requires clinical correlation. 3. Nonobstructing right renal calculus. 4. Fatty liver. 5. The gallbladder is unremarkable. 6. No hydronephrosis. 7. No evidence of appendicitis.
[2022-04-06] MEDS: PANTOPRAZOLE 40 MG/10 ML VIAL IVP SCH ×3 (03:15→21:34)
[2022-04-06] MEDS: OXYMETAZOLINE 0.05% NASL SPRAY 1 SPRAY BOTTLE NASAL SCH ×2 (03:15→16:07)
--- NOTE | 2022-04-06 03:30 | XR ---
EXAM: XR Abdomen, 2 Views and XR Chest, 1 View CLINICAL HISTORY: ITS.REASON XR Reason: Abdominal pain and vomiting TECHNIQUE: Frontal view of the chest, frontal view of the abdomen/pelvis and upright or decubitus view of the abdomen. COMPARISON: None FINDINGS: Hardware: None. Lungs/pleura: Normal. No focal consolidation. No pleural effusion or pneumothorax. Heart/mediastinum: Borderline size of the cardiac silhouette. Median sternotomy and CABG changes. Left atrial appendage clip. Soft tissues: Unremarkable. Bones: No acute fracture. Abdomen: Nonobstructive bowel gas pattern. Large amount of stool. No free air. Other: Presumed phleboliths in the left pelvis. IMPRESSION: 1. No acute cardiopulmonary abnormality identified. 2. Nonobstructive bowel gas pattern. Large amount of stool.
[2022-04-06 08:23] LABS: Glucose,Whole Blood 139 mg/dL (70-110)
[2022-04-06] MEDS: INSULIN ASPART (NovoLOG) 100 UNIT/ML VIAL SQ SCH ×4 (08:49→21:17)
[2022-04-06] MEDS ORDERED: NON FORMULARY DRUG (Ondansetron Hcl [Zofran] 8 MG Tablet) PO PRN (11:27)
[2022-04-06] MEDS ORDERED: ACETAMINOPHEN TAB 325 MG TAB PO PRN (11:27)
[2022-04-06] MEDS ORDERED: HYOSCYAMINE SULFATE 0.125 MG TAB PO PRN (11:27)
[2022-04-06] MEDS ORDERED: FLUTICASONE 50MCG/SPRAY NASAL 16GM EA NOSTRIL PRN (11:27)
[2022-04-06] MEDS ORDERED: ONDANSETRON ODT 4 MG TAB PO PRN (11:27)
[2022-04-06] MEDS ORDERED: ALBUTEROL NEBULIZED 2.5 MG/3 ML INHALATION PRN (11:27)
[2022-04-06 11:35] LABS: Glucose,Whole Blood 139 mg/dL (70-110)
[2022-04-06] MEDS: glipiZIDE 5 MG TAB PO SCH (12:06)
[2022-04-06] MEDS: SERTRALINE 50 MG TAB PO SCH (12:34)
[2022-04-06] MEDS: amLODIPine 10 MG TAB PO SCH (12:35)
[2022-04-06] MEDS: POTASSIUM CHLORIDE ER 10 MEQ TAB.ER.PRT PO SCH (12:35)
[2022-04-06] MEDS: AMIODARONE 200 MG TAB PO SCH (12:35)
[2022-04-06] MEDS: METOPROLOL SUCCINATE (ER) 50 MG TAB.ER.24H PO SCH (12:35)
[2022-04-06] MEDS: allopurinoL 300 MG TAB PO SCH (12:35)
[2022-04-06] MEDS: CLOPIDOGREL 75 MG TAB PO SCH (12:35)
[2022-04-06] MEDS: LOSARTAN 25 MG TAB PO SCH (12:35)
[2022-04-06] MEDS: FUROSEMIDE 80 MG TAB PO SCH (12:35)
--- NOTE | 2022-04-06 14:37 | P.CONS ---
History of Present Illness - Reason for Consult Consult date: 04/06/22 Pancreatitis Requesting physician: Abner Blackburn - Chief Complaint Abdominal pain, nausea and vomiting - History of Present Illness This is a 51-year-old pleasant white male with multiple comorbidities including coronary artery disease, diabetes mellitus, previous [place] and chronic kidney disease who presented to the emergency department yesterday evening with complaints of abdominal pain with nausea and vomiting. States pain is located in the right upper quadrant. It was noted to have an elevated amylase and lipase consistent with pancreatitis. He denies any previous history of pancreatitis, no history of alcohol abuse, no history of gallbladder disease and no reported new medications. She is unsure if he has a family history of pancreatitis and states that his family is . His early stating that his pain is improving. It was mostly located in the right upper quadrant and was associated with nausea and vomiting. However he said no further nausea or vomiting since being hospitalized and pain medications are improving pain. He now rates his pain 3 out of 10. Patient had a CT of the abdomen and pelvis that was concerning for stool impaction. Patient states he had a normal bowel movement this morning. Denies regular constipation. Labs WBC 10.3 hemoglobin 12.2 hematocrit 37 platelet count 219,019 or 1.0 sodium 139 potassium 4.5 by mouth 57 creatinine 3.0 total bilirubin 0.6 AST 19 and 213 alkaline phosphatase 102 troponin 0.036 amylase 138 lipase [address] abdomen and pelvis reports distention of rectosigmoid with stool raising concern for fecal impaction. Mild distention of urinary bladder, nonobstructing right renal calculus, fatty liver, gallbladder unremarkable, no hydronephrosis nephrosis no evidence of appendicitis Review of Systems REVIEW OF SYSTEMS: CARDIOPULMONARY: No chest pain or shortness of breath. Gastrointestinal: Right upper quadrant pain, associated with nausea and vomiting. No hematemesis, coffee-ground emesis. No rectal bleeding, or melena. GENITOURINARY: No dysuria or hematuria. MUSCULOSKELETAL: Reports normal range of motion. SKIN: No rashes. No jaundice. ENDOCRINE: No chills, fevers. No excessive weight gain or loss. No polydipsia or polyuria. PSYCHIATRIC: Unremarkable. NEUROLOGY: No change in mental status. Denies dizziness, headache. ENT: Vision unremarkable. CONSTITUTIONAL: No recent weight loss. No fever, chills, night sweats. Past Medical History Past Medical History: Atrial Fibrillation, Asthma, Coronary Artery Disease (CAD), Heart Failure, COPD, Diabetes Mellitus, GERD/Reflux, Hyperlipidemia, Hypertension, Myocardial Infarction ([place]), Renal Disease, Sleep Apnea/CPAP/BIPAP Additional Past Medical History / Comment(s): Pt recently admitted to [facility] on 12/29/21 with CHF. Other hx: NIDDM type II, CKD stage III, chronic anemia, CHLOE without device d/t insurance issues, mild COPD, [place] bilateral ears, gout. Last Myocardial Infarction Date:: 2008 History of Any Multi-Drug Resistant Organisms: MRSA Year Discovered:: 10/2020 MDRO Source:: Right eye Past Surgical History: Adenoidectomy, Coronary Bypass/CABG, Heart Catheterization, Heart Catheterization With Stent, Tonsillectomy Additional Past Surgical History / Comment(s): cardiac stents x 5, quad bipass open heart 10/07/2021 Past Anesthesia/Blood Transfusion Reactions: Postoperative Nausea & Vomiting (PONV) Date of Last Stent Placement:: 2008 Past Psychological History: ADD/ADHD, Anxiety, Bipolar, Depression, PTSD Smoking Status: Former smoker Past Alcohol Use History: None Reported Past Drug Use History: None Reported - Past Family History Father Family Medical History: Cancer, Coronary Artery Disease (CAD), Myocardial Infarction ([place]) Additional Family Medical History / Comment(s): at age 68 from mesothelioma, diagnosis of heart disease age of 60 Mother Family Medical History: Cancer, Coronary Artery Disease (CAD), Diabetes Mellitus, Liver Disease, Myocardial Infarction ([place]) Additional Family Medical History / Comment(s): from liver cancer, diagnosed with heart disease before the age of 60 Medications and Allergies Home Medications Medication Instructions Recorded Confirmed Type Acetaminophen Tab [Tylenol] 650 mg PO Q4HR PRN tab 10/14/21 04/06/22 Rx Ascorbic Acid [Vitamin C] 500 mg PO BID-W/MEALS #60 tab 10/14/21 04/06/22 Rx Atorvastatin [Lipitor] 80 mg PO HS #30 tab 10/14/21 04/06/22 Rx Ferrous Sulfate [Iron (65 MG 325 mg PO BID-W/MEALS #60 tab 10/14/21 04/06/22 Rx Elemental)] Potassium Chloride ER [K-Dur 10] 10 meq PO DAILY #30 tab 10/14/21 04/06/22 Rx Sertraline [Zoloft] 50 mg PO DAILY #30 tab 10/14/21 04/06/22 Rx Nitroglycerin Sl Tabs [Nitrostat] 0.4 mg SL Q5M PRN 11/02/21 04/06/22 History Aspirin EC [Ecotrin Low Dose] 81 mg PO DAILY 11/10/21 04/06/22 History Albuterol Sulfate [Albuterol 2 puff INHALATION RT-QID PRN 11/28/21 04/06/22 History Sulfate Hfa] Budesonide/Formoterol Fumarate 2 puff INHALATION RT-BID 11/28/21 04/06/22 History [Symbicort 160-4.5 Mcg Inhaler] Clopidogrel [Plavix] 75 mg PO DAILY 12/29/21 04/06/22 History Empagliflozin [Jardiance] 25 mg PO DAILY 12/29/21 04/06/22 History Sacubitril/Valsartan [Entresto 24 1 tab PO BID 12/29/21 04/06/22 History mg-26 mg Tablet] Dulaglutide [Trulicity] 0.75 mg SQ WE 03/12/22 04/06/22 History metFORMIN HCL [Glucophage] 500 mg PO BID 03/12/22 04/06/22 History Ondansetron Odt [Zofran Odt] 4 mg PO Q8HR PRN #6 tab 03/15/22 04/06/22 Rx Amiodarone [Cordarone] 200 mg PO DAILY 04/06/22 04/06/22 History Fluticasone Nasal [place] [Flonase 2 spray EA NOSTRIL DAILY PRN 04/06/22 04/06/22 History Nasal [place]] Furosemide [Lasix] 80 mg PO DAILY 04/06/22 04/06/22 History Hyoscyamine Sulfate [Hyoscyamine 0.125 mg SL Q6H PRN 04/06/22 04/06/22 History Sulfate SL] Indomethacin [Indocin] 50 mg PO TID PRN 04/06/22 04/06/22 History Levofloxacin [Levaquin] 250 mg PO DAILY 04/06/22 04/06/22 History Losartan Potassium [Cozaar] 25 mg PO DAILY 04/06/22 04/06/22 History Meclizine [Antivert] 25 mg PO TID PRN 04/06/22 04/06/22 History Metoprolol Succinate [Toprol XL] 50 mg PO DAILY 04/06/22 04/06/22 History Pantoprazole Sodium [Protonix] 20 mg PO BID 04/06/22 04/06/22 History allopurinoL [Zyloprim] 300 mg PO DAILY 04/06/22 04/06/22 History amLODIPine [Norvasc] 10 mg PO DAILY 04/06/22 04/06/22 History glipiZIDE 10 mg PO DAILY 04/06/22 04/06/22 History hydrALAZINE HCL [Apresoline] 50 mg PO TID 04/06/22 04/06/22 History ondansetron HCL [Zofran] 8 mg PO Q12HR PRN 04/06/22 04/06/22 History Allergies Allergy/AdvReac Type Severity Reaction Status Date / Time Penicillins Allergy Anaphylaxis Verified 04/06/22 07:07 spironolactone Allergy Anaphylaxis Verified 04/06/22 07:07 Sulfa (Sulfonamide Allergy Anaphylaxis Verified 04/06/22 07:07 Antibiotics) Physical Exam Vitals: Vital Signs Temp Pulse Pulse Resp BP BP Pulse Ox 04/06/22 08:00 98.2 F 91 17 123/78 94 L 04/06/22 06:24 75 130/85 95 04/06/22 03:17 74 120/78 04/06/22 02:27 79 151/90 97 04/06/22 01:06 74 131/84 04/06/22 00:38 98.2 F 78 16 114/76 95 Intake and Output 04/05/22 04/06/22 04/06/22 22:59 06:59 14:59 Other: Voiding Method Toilet # Voids 2 Weight 127.006 kg General appearance: The patient is alert, oriented, appears in no acute distress. HET: Head is normocephalic and atraumatic. Conjunctiva pink. Sclera anicteric. Neck: Supple without lymphadenopathy. Trachea midline. Heart: S1 S2. Regular rate and rhythm. Lungs: Clear to auscultation. Abdomen: Soft, nontender, nondistended with bowel sounds. No guarding or rigidity. Skin: No rashes. No jaundice. Extremities: Normal skin color and turgor. No pedal edema. Neurological: No focal deficits. Alert and oriented x3. Results CBC & Chem 7: 04/06/22 00:40 04/06/22 00:40 Labs: Abnormal Lab Results - Last 24 Hours (Table) 04/06/22 04/06/22 04/06/22 Range/Units 00:40 00:40 00:40 RBC 4.15 L (4.30-5.90) m/uL Hgb 12.2 L (13.0-17.5) gm/dL Hct 37.9 L (39.0-53.0) % RDW 15.9 H (11.5-15.5) % Lymphocytes # 0.8 L (1.0-4.8) k/uL BUN 57 H (9-20) mg/dL Creatinine 3.00 H (0.66-1.25) mg/dL Glucose 156 H (74-99) mg/dL POC Glucose (mg/dL) (70-110) mg/dL Troponin I 0.036 H* (0.000-0.034) ng/mL Amylase 138 H (30-110) U/L Lipase 1235 H (23-300) U/L Urine Glucose (UA) (Negative) 04/06/22 04/06/22 Range/Units 02:27 08:21 RBC (4.30-5.90) m/uL Hgb (13.0-17.5) gm/dL Hct (39.0-53.0) % RDW (11.5-15.5) % Lymphocytes # (1.0-4.8) k/uL BUN (9-20) mg/dL Creatinine (0.66-1.25) mg/dL Glucose (74-99) mg/dL POC Glucose (mg/dL) 139 H (70-110) mg/dL Troponin I (0.000-0.034) ng/mL Amylase (30-110) U/L Lipase (23-300) U/L Urine Glucose (UA) 3+ H (Negative) Comments: CT abdomen and pelvis reports distention of rectosigmoid with stool raising concern for fecal impaction. Mild distention of urinary bladder, nonobstructing right renal calculus, fatty liver, gallbladder unremarkable, no hydronephrosis nephrosis no evidence of appendicitis Assessment and Plan (1) Acute pancreatitis Narrative/Plan: This is a 51-year-old male with multiple comorbidities who presented to the [facility] department yesterday evening with complaints of abdominal pain mostly in the right upper quadrant associated with nausea and vomiting. His admitting labs showed a normal total bilirubin, AST ALT and alkaline phosphatase however had elevated amylase and lipase consistent with pancreatitis. CT of the abdomen and pelvis is not concerning for gallstone pancreatitis, actually stated that no pancreatitis was noted. He has no prior history of pancreatitis, denies any alcohol use, and no new medications. Triglycerides were 132. Unclear etiology at this time for uncomplicated pancreatitis. Will treat conservatively, pain medications, IV fluids and clear liquid diet. Current Visit: Yes Status: Acute Code(s): K85.90 - ACUTE PANCREATITIS WITHOUT NECROSIS OR INFECTION, UNSP SNOMED Code(s): 143041631 (2) Coronary artery disease Current Visit: Yes Status: Acute Code(s): I25.10 - ATHSCL HEART DISEASE OF [place] CORONARY ARTERY W/O ANG PCTRS SNOMED Code(s): 09397354 (3) Diabetes mellitus Current Visit: Yes Status: Acute Code(s): E11.9 - TYPE 2 DIABETES MELLITUS WITHOUT COMPLICATIONS SNOMED Code(s): 52477960 (4) CKD (chronic kidney disease) Current Visit: No Status: Acute Code(s): N18.9 - CHRONIC KIDNEY DISEASE, UNSPECIFIED SNOMED Code(s): 279779564 (5) Elevated troponin I level Current Visit: No Status: Acute Code(s): R77.8 - OTHER SPECIFIED ABNORMALITIES OF PLASMA PROTEINS SNOMED Code(s): 917821297 Plan: 1. Continue symptomatic and supportive care 2. Continue with pain management 3. May advance to clear liquid diet 4. Repeat lipase in the morning 5. Antiemetics as needed Thank you for this consultation, we will continue to monitor. Dr. Ruddy Meyer I agree with the dictator's note, documented as a scribe by Jaqueline Curtis.
[2022-04-06] MEDS: hydrALAZINE HCL 50 MG TAB PO SCH ×2 (16:06→21:35)
[2022-04-06 16:28] LABS: Glucose,Whole Blood 145 mg/dL (70-110)
[2022-04-06] MEDS: FERROUS SULFATE 325 MG TAB PO SCH (17:40)
--- NOTE | 2022-04-06 18:27 | HP ---
HISTORY AND PHYSICAL CHIEF COMPLAINT: Abdominal pain. HISTORY OF PRESENT ILLNESS: This gentleman presented to the emergency room with abdominal pain. However, he was found to have pancreatitis. He has had no nausea or vomiting. He does have a history of congestive heart failure and recently was in the office with complaints of anasarca and shortness of breath. He denies alcohol heavy alcohol consumption. He is diabetic. REVIEW OF SYSTEMS: He has had no syncope, headache, cough, hemoptysis, nausea, vomiting, hematemesis, melena, hematochezia, jaundice, history of hepatitis, renal disease, renal failure, incontinence, etc. Past medical history, family history and personal and social histories reveal: ALLERGIES: SULFA AND PENICILLIN. He is on Toprol-XL 50 mg once a day, Jardiance 25 mg once a day, and Entresto 24-26 twice a day, Symbicort 160/4.5 2 puffs twice a day, hydralazine 25 3 times a day, amlodipine 10 mg once a day, allopurinol 300 once a day, KCl 10 mEq once a day, clopidogrel 75 once a day, amiodarone 200 mg once a day, ferrous sulfate 325 once a day, Protonix 20 mg a day, aspirin 81 mg a day, Trulicity 0.75 once a week, atorvastatin 80 mg once a day, Zoloft 50 mg once a day, vitamin D, spironolactone 25 mg once a day, and Nitrostat 1:150 p.r.n. The remainder of his history is unremarkable. He used to smoke but does not any longer. PHYSICAL EXAMINATION: Blood pressure is 162/88 with a pulse of 98, respirations 20 and he is afebrile. In general, he appeared to be obese, in no acute distress. Skin color is normal. Skin is warm and dry. Head, ears, eyes, nose, mouth and throat were normal. There is no icterus. Chest is clear. Cardiac exam demonstrates sinus rhythm and no murmurs or extra sounds. Abdomen was soft and nontender. Extremities are normal. Neurological: He is intact. IMPRESSION: He is admitted to the hospital with diagnoses: 1. Pancreatitis, etiology unknown. 2. Coronary artery disease. 3. Congestive heart failure. 4. Diabetes mellitus. PLAN: 1. Bedrest. 2. IV fluids. 3. Monitor lipase. MMODL / IJN: [id number] /
[2022-04-06 20:50] LABS: Glucose,Whole Blood 131 mg/dL (70-110)
[2022-04-06] MEDS: SYMBICORT 160-4.5 MCG INHALER INHALATION SCH (20:51)
[2022-04-06] MEDS ORDERED: NON FORMULARY DRUG (Pantoprazole Sodium [Protonix] 20 MG Tablet) PO SCH (21:00)
[2022-04-06] MEDS ORDERED: metFORMIN 500 MG TAB PO SCH (21:00)
[2022-04-06] MEDS: ATORVASTATIN 80 MG TAB PO SCH (21:34)
[2022-04-07 01:58] LABS: Glucose,Whole Blood 128 mg/dL (70-110)
[2022-04-07] MEDS: OXYMETAZOLINE 0.05% NASL SPRAY 1 SPRAY BOTTLE NASAL SCH ×2 (03:00→13:18)
[2022-04-07] MEDS: SODIUM CHLORIDE 0.9% 1,000 ML IV SCH ×3 (03:41→23:58)
[2022-04-07 06:53] LABS: Glucose,Whole Blood 131 mg/dL (70-110)
[2022-04-07] MEDS: INSULIN ASPART (NovoLOG) 100 UNIT/ML VIAL SQ SCH ×4 (07:18→20:57)
[2022-04-07] MEDS: allopurinoL 300 MG TAB PO SCH (07:49)
[2022-04-07] MEDS: METOPROLOL SUCCINATE (ER) 50 MG TAB.ER.24H PO SCH (07:49)
[2022-04-07] MEDS: CLOPIDOGREL 75 MG TAB PO SCH (07:49)
[2022-04-07] MEDS: glipiZIDE 5 MG TAB PO SCH (07:49)
[2022-04-07] MEDS: FERROUS SULFATE 325 MG TAB PO SCH ×2 (07:49→16:56)
[2022-04-07] MEDS: POTASSIUM CHLORIDE ER 10 MEQ TAB.ER.PRT PO SCH (07:49)
[2022-04-07] MEDS: SERTRALINE 50 MG TAB PO SCH (07:50)
[2022-04-07 08:04] LABS: ALT 10 U/L (4-49); AST 18 U/L (17-59); African American GFR (CKD) 32 (>60 ml/min/1.73 sqM); Albumin 3.5 g/dL (3.5-5.0); Albumin/Globulin Ratio 1.4; Alkaline Phosphatase 121 U/L (38-126); Amylase 47 U/L (30-110); Anion Gap 7 mmol/L; Blood Urea Nitrogen 45 mg/dL (9-20); Calcium 8.4 mg/dL (8.4-10.2); Carbon Dioxide 27 mmol/L (22-30); Chloride 103 mmol/L (98-107); Globulin 2.5 g/dL; Glucose 119 mg/dL (74-99); LDH 399 U/L (313-618); Lipase 92 U/L (23-300); Non-African American GFR(CKD) 28 (>60 ml/min/1.73 sqM); Potassium 4.1 mmol/L (3.5-5.1); Sodium 137 mmol/L (137-145); Total Bilirubin 0.8 mg/dL (0.2-1.3)
[2022-04-07] MEDS: SYMBICORT 160-4.5 MCG INHALER INHALATION SCH ×3 (08:42→19:41)
[2022-04-07] MEDS: NON FORMULARY DRUG (Empagliflozin [Jardiance] 10 MG Tablet) PO SCH (09:01)
[2022-04-07] MEDS: LOSARTAN 25 MG TAB PO SCH (09:03)
[2022-04-07] MEDS: amLODIPine 10 MG TAB PO SCH (09:03)
[2022-04-07] MEDS: hydrALAZINE HCL 50 MG TAB PO SCH ×3 (09:03→20:57)
[2022-04-07] MEDS: AMIODARONE 200 MG TAB PO SCH (09:03)
[2022-04-07] MEDS: FUROSEMIDE 80 MG TAB PO SCH (09:03)
[2022-04-07 10:37] LABS: Basophils # (A) 0.09 X 10*3/uL (0.00-0.10); Basophils % (A) 1.1 %; Eosinophils % (A) 6.2 %; HCT 40.2 % (39.6-50.0); Immature Grans, Automated 0.7 %; Lymphocytes # (A) 1.29 X 10*3/uL (0.90-5.00); MCH 28.4 pg (27.0-32.0); MCHC 29.9 g/dL (32.0-37.0); Mean Platelet Volume 9.6 fL (9.5-12.2); Monocytes # (A) 0.45 X 10*3/uL (0.20-1.00); Monocytes % (A) 5.6 %; NRBC Per 100 WBC 0 /100 WBCS (0.0-0.0); Neutrophils # (A) 5.68 X 10*3/uL (1.80-7.70); Neutrophils % (A) 70.4 %; Platelet Count 201 X 10*3/uL (140-440); RBC 4.23 X 10*6/uL (4.40-5.60); RDW 15.9 % (11.5-14.5); WBC 8.07 X 10*3/uL (4.50-10.00)
--- NOTE | 2022-04-07 10:56 | P.PN ---
Subjective Progress Note Date: 04/07/22 Principal diagnosis: Acute pancreatitis Patient was admitted with abdominal pain, acute uncomplicated pancreatitis. . have repeat lipase normal at 92. LFTs normal. He states abdominal pain has improved, he's had no further nausea or vomiting. His been tolerating clear liquid diet. Objective - Vital Signs Vital signs: Vital Signs Temp 98.2 F 04/07/22 07:41 Pulse 70 04/07/22 07:41 Resp 17 04/07/22 07:41 BP 107/68 04/07/22 07:41 Pulse Ox 90 L 04/07/22 07:41 FiO2 Intake & Output 04/06/22 04/07/22 04/07/22 18:59 06:59 18:59 Weight 88.541 kg 133.1 kg Other: Voiding Method Toilet Toilet Toilet Urinal Urinal # Voids 3 2 - Exam General appearance: The patient is alert, oriented, appears in no acute distress. HET: Head is normocephalic and atraumatic. Conjunctiva pink. Sclera anicteric. Neck: Supple without lymphadenopathy. Abdomen: Soft, obese, nontender, nondistended with bowel sounds. No guarding or rigidity. Extremities: Normal skin color and turgor. No pedal edema Skin: No rashes, no jaundice Neurological: No focal deficits. Alert and oriented x 3. - Labs CBC & Chem 7: 04/07/22 06:05 04/07/22 06:05 Labs: Abnormal Lab Results - Last 24 Hours (Table) 04/06/22 04/06/22 04/06/22 Range/Units 11:34 16:26 20:48 BUN (9-20) mg/dL Creatinine (0.66-1.25) mg/dL Glucose (74-99) mg/dL POC Glucose (mg/dL) 139 H 145 H 131 H (70-110) mg/dL Total Protein (6.3-8.2) g/dL 04/07/22 04/07/22 04/07/22 Range/Units 01:56 06:05 06:52 BUN 45 H (9-20) mg/dL Creatinine 2.55 H (0.66-1.25) mg/dL Glucose 119 H (74-99) mg/dL POC Glucose (mg/dL) 128 H 131 H (70-110) mg/dL Total Protein 6.0 L (6.3-8.2) g/dL Assessment and Plan (1) Acute pancreatitis Narrative/Plan: This is a 51-year-old male with multiple comorbidities who presented to the emergency department yesterday evening with complaints of abdominal pain mostly in the right upper quadrant associated with nausea and vomiting. His admitting labs showed a normal total bilirubin, AST ALT and alkaline phosphatase however had elevated amylase and lipase consistent with pancreatitis. CT of the abdomen and pelvis is not concerning for gallstone pancreatitis, actually stated that no pancreatitis was noted. He has no prior history of pancreatitis, denies any alcohol use, and no new medications. Triglycerides were 132. Unclear etiology at this time for uncomplicated pancreatitis. Will treat conservatively, pain medications, IV fluids and clear liquid diet. Lipase improved as well as pain. Will advance diet. No further workup indica lefty at this time. Current Visit: Yes Status: Acute Code(s): K85.90 - ACUTE PANCREATITIS WITHOUT NECROSIS OR INFECTION, UNSP SNOMED Code(s): 855527721 (2) Coronary artery disease Current Visit: Yes Status: Acute Code(s): I25.10 - ATHSCL HEART DISEASE OF [place] CORONARY ARTERY W/O ANG PCTRS SNOMED Code(s): 33897961 (3) Diabetes mellitus Current Visit: Yes Status: Acute Code(s): E11.9 - TYPE 2 DIABETES MELLITUS WITHOUT COMPLICATIONS SNOMED Code(s): 97124618 (4) CKD (chronic kidney disease) Current Visit: No Status: Acute Code(s): N18.9 - CHRONIC KIDNEY DISEASE, UNSPECIFIED SNOMED Code(s): 699934917 (5) Elevated troponin I level Current Visit: No Status: Acute Code(s): R77.8 - OTHER SPECIFIED ABNORMALITIES OF PLASMA PROTEINS SNOMED Code(s): 625500260 Plan: 1. Continue symptomatic and supportive care 2. Continue with pain medications as needed 3. May advance to low-fat diet 4. Encourage ambulation 5. Antiemetics as needed 6. No further workup indicated at this time. Patient is able to tolerate advanced diet, he may be cleared from gastroenterology for discharge. Thank you for this consultation, we will continue to monitor. Dr. Ruddy Meyer I agree with the dictator's note, documented as a scribe by Jaqueline Curtis.
[2022-04-07 11:45] LABS: Glucose,Whole Blood 55 mg/dL (70-110)
[2022-04-07 12:03] LABS: Glucose,Whole Blood 71 mg/dL (70-110)
[2022-04-07] MEDS: PANTOPRAZOLE 40 MG/10 ML VIAL IVP SCH ×2 (13:17→21:30)
[2022-04-07 16:45] LABS: Glucose,Whole Blood 112 mg/dL (70-110)
--- NOTE | 2022-04-07 19:23 | HP ---
HISTORY AND PHYSICAL CHIEF COMPLAINT: Abdominal pain. HISTORY OF PRESENT ILLNESS: This is another admission for this 51-year-old white male who is in and out of the hospital frequently for coronary artery disease, congestive heart failure and kidney failure. He presented to the emergency room with epigastric pain and was found to have pancreatitis. This is a new diagnosis for him. He denies any use of alcohol and he has never had this before. REVIEW OF SYSTEMS: He has had no fever, chills, nausea, vomiting, jaundice, back pain, etc. Past medical history, family history, and personal and social histories are all otherwise unremarkable and unchanged from his previous and recent admitting and discharge summaries. PHYSICAL EXAMINATION: Blood pressure is 132/90 with a pulse of 88 and regular, respirations of 35, and he is afebrile. In general he appeared to be obese and in no acute distress. Skin color is normal. There is no jaundice. Head, ears, eyes, nose, mouth and throat were normal. Neck veins were not distended. Thyroid is not enlarged. The chest demonstrated decreased breath sounds at the bases with rales. Cardiac exam demonstrated sinus rhythm. He had a healing sternotomy wound. Abdomen is protuberant, soft and slightly tender over the epigastrium. There are no masses. Bowel sounds are present. Extremities are normal. Neurologically he is intact. He is admitted to the hospital with diagnoses: 1. Acute pancreatitis. 2. Coronary artery disease. 3. Congestive heart failure. 4. Uncontrolled diabetes. PLAN: 1. Bedrest. 2. IV fluids. 3. IV analgesics. 4. Follow lipase. MMODL / IJN: [id number] /
--- NOTE | 2022-04-07 19:29 | PN ---
PROGRESS NOTE CHIEF COMPLAINT: Pancreatitis. HISTORY OF PRESENT ILLNESS: This gentleman is feeling better. He is not having as much pain. Other than that he is doing well. PHYSICAL EXAMINATION: Vital signs are normal. Chest is clear. Cardiac exam is normal. The abdomen is protuberant, soft and not tender. IMPRESSION: 1. Pancreatitis. 2. Coronary artery disease. 3. Congestive heart failure. 4. Diabetes. PLAN: Repeat laboratory studies and advance activity and diet. MMODL / IJN: [id number] /
[2022-04-07 20:17] LABS: Glucose,Whole Blood 165 mg/dL (70-110)
[2022-04-07] MEDS: ATORVASTATIN 80 MG TAB PO SCH (20:57)
[2022-04-08] MEDS: OXYMETAZOLINE 0.05% NASL SPRAY 1 SPRAY BOTTLE NASAL SCH ×2 (01:38→14:49)
[2022-04-08 02:00] LABS: Glucose,Whole Blood 128 mg/dL (70-110)
[2022-04-08 07:10] LABS: Glucose,Whole Blood 124 mg/dL (70-110)
[2022-04-08] MEDS: INSULIN ASPART (NovoLOG) 100 UNIT/ML VIAL SQ SCH ×4 (07:12→21:12)
[2022-04-08] MEDS: SYMBICORT 160-4.5 MCG INHALER INHALATION SCH ×2 (08:47→19:47)
[2022-04-08] MEDS ORDERED: NON FORMULARY DRUG (Dulaglutide [Trulicity] 0.75 MG/0.5 ML Each) SQ SCH (09:00)
[2022-04-08] MEDS: SERTRALINE 50 MG TAB PO SCH (09:17)
[2022-04-08] MEDS: hydrALAZINE HCL 50 MG TAB PO SCH ×3 (09:17→21:12)
[2022-04-08] MEDS: PANTOPRAZOLE 40 MG TABLET PO SCH ×2 (09:17→17:34)
[2022-04-08] MEDS: POTASSIUM CHLORIDE ER 10 MEQ TAB.ER.PRT PO SCH (09:17)
[2022-04-08] MEDS: allopurinoL 300 MG TAB PO SCH (09:17)
[2022-04-08] MEDS: AMIODARONE 200 MG TAB PO SCH (09:17)
[2022-04-08] MEDS: FERROUS SULFATE 325 MG TAB PO SCH ×2 (09:17→17:34)
[2022-04-08] MEDS: amLODIPine 10 MG TAB PO SCH (09:17)
[2022-04-08] MEDS: METOPROLOL SUCCINATE (ER) 50 MG TAB.ER.24H PO SCH (09:17)
[2022-04-08] MEDS: LOSARTAN 25 MG TAB PO SCH (09:17)
[2022-04-08] MEDS: FUROSEMIDE 80 MG TAB PO SCH (09:17)
[2022-04-08] MEDS: CLOPIDOGREL 75 MG TAB PO SCH (09:17)
[2022-04-08] MEDS: glipiZIDE 5 MG TAB PO SCH (09:17)
[2022-04-08] MEDS: NON FORMULARY DRUG (Empagliflozin [Jardiance] 10 MG Tablet) PO SCH (09:18)
[2022-04-08] MEDS: SODIUM CHLORIDE 0.9% 1,000 ML IV SCH ×2 (11:08→21:13)
[2022-04-08 11:43] LABS: Glucose,Whole Blood 105 mg/dL (70-110)
[2022-04-08 16:41] LABS: Glucose,Whole Blood 75 mg/dL (70-110)
[2022-04-08 17:57] LABS: Lipase 164 U/L (23-300)
[2022-04-08 20:09] LABS: Glucose,Whole Blood 161 mg/dL (70-110)
--- NOTE | 2022-04-08 20:36 | PN ---
PROGRESS NOTE DATE OF SERVICE: 04/08/2022 CHIEF COMPLAINT: Pancreatitis. HISTORY OF PRESENT ILLNESS: This gentleman is doing fairly well. His lipase has dropped into the normal range. His pain is improving. He has had no nausea or vomiting. He has had no chest pain. PHYSICAL EXAMINATION: Chest is clear. Cardiac exam is normal. Abdomen is soft, nontender. IMPRESSION: 1. Pancreatitis. 2. Coronary artery disease. 3. Renal failure. PLAN: Probably discharge tomorrow if his numbers remain stable and he is able to eat and ambulate. MMODL / IJN: [id number] /
[2022-04-08 21:02] VITALS: RESP 20
[2022-04-08] MEDS: ATORVASTATIN 80 MG TAB PO SCH (21:12)
[2022-04-09 02:08] LABS: Chol/HDL Ratio 3.28 Ratio; LDL Cholesterol,Calculated 43.5 mg/dL (0.0-131.0)
[2022-04-09 02:18] LABS: Glucose,Whole Blood 155 mg/dL (70-110)
[2022-04-09] MEDS: OXYMETAZOLINE 0.05% NASL SPRAY 1 SPRAY BOTTLE NASAL SCH (02:55)
[2022-04-09 06:44] LABS: Glucose,Whole Blood 190 mg/dL (70-110)
[2022-04-09] MEDS: SYMBICORT 160-4.5 MCG INHALER INHALATION SCH (07:29)
[2022-04-09] MEDS: glipiZIDE 5 MG TAB PO SCH (07:44)
[2022-04-09] MEDS: AMIODARONE 200 MG TAB PO SCH (07:44)
[2022-04-09] MEDS: FERROUS SULFATE 325 MG TAB PO SCH (07:44)
[2022-04-09] MEDS: allopurinoL 300 MG TAB PO SCH (07:44)
[2022-04-09] MEDS: CLOPIDOGREL 75 MG TAB PO SCH (07:44)
[2022-04-09] MEDS: POTASSIUM CHLORIDE ER 10 MEQ TAB.ER.PRT PO SCH (07:44)
[2022-04-09] MEDS: LOSARTAN 25 MG TAB PO SCH (07:44)
[2022-04-09] MEDS: METOPROLOL SUCCINATE (ER) 50 MG TAB.ER.24H PO SCH (07:44)
[2022-04-09] MEDS: FUROSEMIDE 80 MG TAB PO SCH (07:44)
[2022-04-09] MEDS: SERTRALINE 50 MG TAB PO SCH (07:44)
[2022-04-09] MEDS: PANTOPRAZOLE 40 MG TABLET PO SCH (07:44)
[2022-04-09 07:45] VITALS: BP 129/68; PULSE 69; TEMP 97.7
[2022-04-09] MEDS: INSULIN ASPART (NovoLOG) 100 UNIT/ML VIAL SQ SCH ×2 (07:45→11:23)
[2022-04-09] MEDS: amLODIPine 10 MG TAB PO SCH (07:45)
[2022-04-09] MEDS: hydrALAZINE HCL 50 MG TAB PO SCH (07:45)
[2022-04-09] MEDS: NON FORMULARY DRUG (Empagliflozin [Jardiance] 10 MG Tablet) PO SCH (07:46)
[2022-04-09 11:16] LABS: Glucose,Whole Blood 122 mg/dL (70-110)
--- NOTE | 2022-04-09 20:55 | DS ---
DISCHARGE SUMMARY CHIEF COMPLAINT: Epigastric pain. HISTORY OF PRESENT ILLNESS AND PHYSICAL EXAMINATION: Details of this man's history and physical can be found in the initial workup. LABORATORY STUDIES: While he was in the hospital he had laboratory studies, details of which can be found in the laboratory section of his chart. COURSE IN THE HOSPITAL: After admission he was placed on bedrest and started on intravenous fluids. Lipase returned to normal. His pain disappeared. He was doing well and it was felt that he could go home on April 09. He will go home on his usual activity, diet and medications. Etiology of his pancreatitis is not clear. In the hospital his lipid profile demonstrated his triglycerides to be in a reasonable range. FINAL DIAGNOSIS: 1. Pancreatitis, etiology unknown. 2. Coronary artery disease. 3. Congestive heart failure. 4. Uncontrolled diabetes mellitus. OPERATIONS: None. CONSULTATIONS: None. He is improved. DMITRI / NANCIE: [id number] /
== END 2022-04-09 14:12 | disposition home or self-care (01) | DRG 439 ==
LOC: EC 00:32 → 4SSUR 03:01
PROVIDERS: ADMIT Family Medicine; ATTEND Family Medicine
DX: K85.90 Acute pancreatitis without necrosis or infection, unspecified (principal); I13.0 Hypertensive heart and chronic kidney disease with heart failure and stage 1 through stage 4 chronic kidney disease, or unspecified chronic kidney disease; N18.4 Chronic kidney disease, stage 4 (severe); R04.0 Epistaxis; R79.89 Other specified abnormal findings of blood chemistry; E11.22 Type 2 diabetes mellitus with diabetic chronic kidney disease; K56.41 Fecal impaction; I50.9 Heart failure, unspecified; J44.9 Chronic obstructive pulmonary disease, unspecified; I48.91 Unspecified atrial fibrillation; F31.9 Bipolar disorder, unspecified; H66.90 Otitis media, unspecified, unspecified ear; I25.10 Atherosclerotic heart disease of native coronary artery without angina pectoris; D64.9 Anemia, unspecified; E78.5 Hyperlipidemia, unspecified; G47.33 Obstructive sleep apnea (adult) (pediatric); K21.9 Gastro-esophageal reflux disease without esophagitis; F43.10 Post-traumatic stress disorder, unspecified; M10.9 Gout, unspecified; F90.9 Attention-deficit hyperactivity disorder, unspecified type; N20.0 Calculus of kidney; F41.9 Anxiety disorder, unspecified; I25.2 Old myocardial infarction; Z95.1 Presence of aortocoronary bypass graft; Z95.5 Presence of coronary angioplasty implant and graft; Z88.0 Allergy status to penicillin; Z88.2 Allergy status to sulfonamides; Z88.8 Allergy status to other drugs, medicaments and biological substances; Z79.82 Long term (current) use of aspirin; Z79.899 Other long term (current) drug therapy; Z79.51 Long term (current) use of inhaled steroids; Z79.02 Long term (current) use of antithrombotics/antiplatelets; Z79.84 Long term (current) use of oral hypoglycemic drugs; Z87.891 Personal history of nicotine dependence; Z82.49 Family history of ischemic heart disease and other diseases of the circulatory system; Z83.3 Family history of diabetes mellitus; Z80.0 Family history of malignant neoplasm of digestive organs; Z87.19 Personal history of other diseases of the digestive system; Z86.14 Personal history of Methicillin resistant Staphylococcus aureus infection; E11.65 Type 2 diabetes mellitus with hyperglycemia
CPT/HCPCS: 36415; 74022; 74176; 80053; 80061; 80320; 81003; 82150; 83036; 83605; 83615; 83690; 83735; 84478; 84484; 85025; 85610; 85730; 93005; 94640; 96361; 96374; 96375; 99285

== ENCOUNTER → 2022-04-14 | Outpatient (CLI) | payer OTHER ==
--- NOTE | 2022-04-14 12:53 | US ---
EXAMINATION TYPE: US kidneys/renal and bladder DATE OF EXAM: 04/14/2022 COMPARISON: 10/06/2021, CT scan 04/06/2022 CLINICAL HISTORY: N18.32 Chronic kidney disease, stage 3b. CKD Limited visualization due to body habitus. EXAM MEASUREMENTS: Right Kidney: 11.2 x 6.2 x 5.9 cm Left Kidney: 11.3 x 4.4 x 5.1 cm Right Kidney: Limited visualization. No hydronephrosis or masses seen Left Kidney: Limited visualization. No hydronephrosis or masses seen Bladder: wnl Bilateral Jets seen: Yes There is no evidence for hydronephrosis at this point in time. No nephrolithiasis is seen. No mary ann s are identified. The urinary bladder is anechoic. Bilateral ureteral jets are seen. IMPRESSION: Cortical thinning with no evidence of hydronephrosis. Small renal stone noted by recent CT scan not w ell seen by ultrasound. Correlate for chronic medical renal disease.
== END | disposition home or self-care (01) ==
LOC: RADUSWWP 10:12
PROVIDERS: ATTEND Family Medicine
DX: N18.32 Chronic kidney disease, stage 3b (principal); N20.0 Calculus of kidney
CPT/HCPCS: 76770

== ENCOUNTER → 2022-05-07 | Outpatient (CLI) | payer OTHER ==
--- NOTE | 2022-05-07 13:36 | P.PN ---
Subjective DATE: [] FOLLOW UP VISIT. Patient with obstructive sleep apnea hypopnea syndrome return to sleep center for follow-up visit. Recently patient had sleep study which documented obstructive sleep apnea hypopnea syndrome. Patient was initiated on PAP therapy and today is first visit after treatment was started. Patient was able to use PAP equipment every night for the whole night. The patient does not have significant problems with the mask, PAP pressure and humidification. [place] sleepiness scale is 3, which is totally normal. I checked information from PAP unit. PAP unit pressure 5-15, average 11.4 cm H2O. Usage is 93 % for more then 4 hours, average 12 hours per night. Leak is 12.1 l/m, which is in acceptable range. Apnea Hypopnea Index is 2.5, which is normal. MEDICATIONS:1. Clopidogrel 75 mg once a day 2. Amiodarone 200 mg once a day 3. Aspirin 81 mg once a day 4. Atorvastatin 80 mg once a day 5. Metoprolol 100 mg twice a day 6. Amlodipine 5 mg once a day 7. Glipizide 10 mg once a day 8. Jardiance During physical exam: GENERAL: A pleasant patient without any distress. VITAL SIGNS: BP 109/66, HR 79, RR 18 , weight 283.6, temperature 95.1, oxygen saturation at room air 92 . HEENT: PERRLA, EOMI.low position of soft palate, Mall[place] 4 . NECK: Supple. No JVD. LUNGS: Clear to percussion and to auscultation. Good air exchange. No wheezing or rhonchi. HEART: S1, S2 regular. ABDOMEN: Soft and nontender. Obese EXTREMITIES: No clubbing or cyanosis. DRUG REGULATORY AFFAIRS SPECIALIST: Awake, alert, and oriented x3. No focal deficit. Impressions: 1. Obstructive sleep apnea-hypopnea syndrome. Patient demonstrated great compliance with treatment, benefiting from treatment. 2. Obesity. 3. Coronary artery disease, status post OK, status post CABG. 4. Hypertension. 5. Hyperlipidemia. 6. Diabetes mellitus. 7. History of depression. 8. history of iron deficiency anemia. Plan: 1. Continue using PAP equipment every night for the whole night. 2. To change air filter at least 1-2 times per month. 3. PAP unit should stay lower then position of the head. 4. Advised patient to remove all remaining water from humidifier canister daily and make it dry after each usage. Refill canister with fresh distilled water before each usage. 5. Sleep hygiene with regular time in bed for at least 8 hours. 6. Precautions related to driving. No driving if feel any sleepiness. 7. I will maintain prescription for PAP supplies including mask, tube, filters. 8. Follow up visit in 6 months or earlier if patient has any problems. 9. Watching and losing weight. Thank you very much for allowing me to participate in the management of your patient. Jorge Mckeon MD, PhD, FAASM. Diplomat of [place] [employer], Sleep Medicine Board by [place] [employer] Flight Agent of [facility] [place]
== END ==
LOC: SLEEP 13:04
PROVIDERS: ATTEND Internal Medicine
DX: G47.33 Obstructive sleep apnea (adult) (pediatric) (principal); E66.9 Obesity, unspecified; I25.10 Atherosclerotic heart disease of native coronary artery without angina pectoris; I25.2 Old myocardial infarction; Z95.1 Presence of aortocoronary bypass graft; I10 Essential (primary) hypertension; E78.5 Hyperlipidemia, unspecified; E11.9 Type 2 diabetes mellitus without complications; F32.A Depression, unspecified; Z86.2 Personal history of diseases of the blood and blood-forming organs and certain disorders involving the immune mechanism; Z99.89 Dependence on other enabling machines and devices; Z79.82 Long term (current) use of aspirin; Z79.84 Long term (current) use of oral hypoglycemic drugs; Z88.0 Allergy status to penicillin; Z88.2 Allergy status to sulfonamides; Z88.8 Allergy status to other drugs, medicaments and biological substances

== ENCOUNTER 2022-05-23 05:34 | Observation (INO) | payer OTHER ==
[2022-05-23 05:51] LABS: Glucose,Whole Blood 132 mg/dL (70-110)
--- NOTE | 2022-05-23 06:01 | ED ---
Chest Pain HPI - General Chief Complaint: Chest Pain Stated Complaint: Chest Pain Time Seen by Provider: 05/23/22 05:43 Source: patient Mode of arrival: ambulatory Limitations: no limitations - History of Present Illness Initial Comments: This patient is a 51-year-old man with history of CAD, including four-vessel CABG that was performed in September, who presents to be evaluated for chest pain. The patient states that the chest pain woke him from sleep at 4 AM. He had been feeling well prior to going to sleep. Patient took 4 baby aspirin and 3 nitroglycerin and as the pain still persisted called EMS. He states that the pain to was moderately relieved, and is down now to 5 out of 10. He describes as heavy, constant. No associated symptoms. Onset/Timin -: minutes(s) Onset: awoke with symptoms Pain Location: substernal Pain Radiation: none Severity: moderate Quality: heaviness Consistency: constant Improves With: nitroglycerin Worsens With: nothing Treatments Prior to Arrival: aspirin, nitroglycerin, oxygen - Related Data Home Medications Medication Instructions Recorded Confirmed Albuterol Sulfate [Albuterol 2 puff INHALATION RT-QID PRN 11/28/21 05/23/22 Sulfate Hfa] Budesonide/Formoterol Fumarate 2 puff INHALATION RT-BID 11/28/21 05/23/22 [Symbicort 160-4.5 Mcg Inhaler] Clopidogrel [Plavix] 75 mg PO DAILY 12/29/21 05/23/22 Sacubitril/Valsartan [Entresto 24 1 tab PO BID 12/29/21 05/23/22 mg-26 mg Tablet] Dulaglutide [Trulicity] 0.75 mg SQ TU 03/12/22 05/23/22 Fluticasone Nasal [place] [Flonase 2 spr EA NOSTRIL DAILY PRN 04/06/22 05/23/22 Nasal [place]] Hyoscyamine Sulfate [Hyoscyamine 0.125 mg SL Q6H PRN 04/06/22 05/23/22 Sulfate SL] Meclizine [Antivert] 25 mg PO TID PRN 04/06/22 05/23/22 Pantoprazole Sodium [Protonix] 20 mg PO BID 04/06/22 05/23/22 allopurinoL [Zyloprim] 300 mg PO DAILY 04/06/22 05/23/22 Aspirin [Children's Aspirin] 81 mg PO DAILY 05/23/22 05/23/22 Empagliflozin [Jardiance] 25 mg PO DAILY 05/23/22 05/23/22 Ezetimibe [Zetia] 10 mg PO DAILY 05/23/22 05/23/22 Previous Rx's Medication Instructions Recorded Acetaminophen Tab [Tylenol] 650 mg PO Q4HR PRN tab 10/14/21 Atorvastatin [Lipitor] 80 mg PO HS #30 tab 10/14/21 Sertraline [Zoloft] 50 mg PO DAILY #30 tab 10/14/21 Metoprolol Succinate (ER) [Toprol 25 mg PO DAILY #90 tab 05/25/22 XL] Allergies Allergy/AdvReac Type Severity Reaction Status Date / Time Penicillins Allergy Anaphylaxis Verified 05/23/22 12:27 spironolactone Allergy Anaphylaxis Verified 05/23/22 12:27 Sulfa (Sulfonamide Allergy Anaphylaxis Verified 05/23/22 12:27 Antibiotics) Review of Systems ROS Statement: Those systems with pertinent positive or pertinent negative responses have been documented in the HPI. ROS Other: All systems not noted in ROS Statement are negative. Constitutional: Denies: fever, chills Respiratory: Denies: cough, dyspnea Cardiovascular: Reports: chest pain. Denies: palpitations, orthopnea, edema, syncope Gastrointestinal: Denies: abdominal pain, nausea, vomiting Genitourinary: Denies: dysuria, hematuria Musculoskeletal: Denies: back pain Skin: Denies: rash Neurological: Denies: headache, weakness, numbness EKG Findings - EKG Results: EKG: interpreted by ERMD, sinus rhythm (Rate 82 bpm) - Blocks, [place], Hypertrophy, ST Abn: QRS axis and voltage: left axis deviation (-30 to -90) Repolarization changes or abnormalities: ST or T wave suggestive of ischemia (Lateral T inversions.) Past Medical History Past Medical History: Atrial Fibrillation, Asthma, Coronary Artery Disease (CAD), Heart Failure, COPD, Diabetes Mellitus, GERD/Reflux, Hyperlipidemia, Hypertension, Myocardial Infarction ([place]), Renal Disease, Sleep Apnea/CPAP/BIPAP Additional Past Medical History / Comment(s): Pt recently admitted to [facility] on 12/29/21 with CHF. Other hx: NIDDM type II, CKD stage III, chronic anemia, CHLOE without device d/t insurance issues, mild COPD, [place] bilateral ears, gout. Last Myocardial Infarction Date:: 2008 History of Any Multi-Drug Resistant Organisms: MRSA Date of last positivie culture/infection: 10/2020 MDRO Source:: Right eye Past Surgical History: Adenoidectomy, Coronary Bypass/CABG, Heart Catheteriza tion, Heart Catheterization With Stent, Tonsillectomy Additional Past Surgical History / Comment(s): cardiac stents x 5, quad bipass open heart 10/07/2021 Past Anesthesia/Blood Transfusion Reactions: Postoperative Nausea & Vomiting (PONV) Date of Last Stent Placement:: 2008 Past Psychological History: ADD/ADHD, Anxiety, Bipolar, Depression, PTSD Smoking Status: Former smoker Past Alcohol Use History: None Reported Past Drug Use History: None Reported - Past Family History Father Family Medical History: Cancer, Coronary Artery Disease (CAD), Myocardial Infarction ([place]) Additional Family Medical History / Comment(s): at age 68 from mesothelioma, diagnosis of heart disease age of 60 Mother Family Medical History: Cancer, Coronary Artery Disease (CAD), Diabetes Mellitus, Liver Disease, Myocardial Infarction ([place]) Additional Family Medical History / Comment(s): from liver cancer, diagnosed with heart disease before the age of 60 General Exam Limitations: no limitations General appearance: alert, in no apparent distress Head exam: Present: atraumatic, normocephalic Eye exam: Present: normal appearance. Absent: scleral icterus, conjunctival injection ENT exam: Present: normal oropharynx Neck exam: Present: normal inspection Respiratory exam: Present: normal lung sounds bilaterally. Absent: respiratory distress, wheezes, rales, rhonchi, stridor Cardiovascular Exam: Present: regular rate, normal rhythm, normal heart sounds. Absent: systolic murmur, diastolic murmur, rubs, gallop GI/Abdominal exam: Present: soft. Absent: distended, tenderness, guarding, rebound, rigid, mass Extremities exam: Present: normal inspection, normal capillary refill. Absent: pedal edema, calf tenderness Back exam: Present: normal inspection Neurological exam: Present: alert Skin exam: Present: warm, dry, intact, normal color. Absent: rash Course Vital Signs 05/23/22 05/23/22 05/23/22 05:36 06:57 10:01 Temperature 98.2 F Pulse Rate 83 88 81 Respiratory 18 20 16 Rate Blood Pressure 149/88 116/82 139/87 O2 Sat by Pulse 97 97 97 Oximetry 05/23/22 16:02 Temperature Pulse Rate 84 Respiratory 16 Rate Blood Pressure 156/90 O2 Sat by Pulse 98 Oximetry Disposition Clinical Impression: Chest pain, Elevated troponin I level Disposition: ADMITTED IP TO THIS HOSP Condition: Fair Is patient prescribed a controlled substance at d/c from ED?: No
[2022-05-23 06:11] LABS: Basophils % (A) 1 %; Eosinophils # (A) 0.3 k/uL (0-0.7); Eosinophils % (A) 4 %; HCT 34.4 % (39.0-53.0); Hypochromasia Slight; Lymphocytes # (A) 0.9 k/uL (1.0-4.8); Lymphocytes % (A) 17 %; MCH 29.2 pg (25.0-35.0); MCHC 31.9 g/dL (31.0-37.0); MCV 91.4 fL (80.0-100.0); Mean Platelet Volume 7.2; Monocytes # (A) 0.3 k/uL (0-1.0); Monocytes % (A) 5 %; Neutrophils # (A) 4.1 k/uL (1.3-7.7); Neutrophils % (A) 72 %; Platelet Count 158 k/uL (150-450); RBC 3.77 m/uL (4.30-5.90); RDW 15.9 % (11.5-15.5); WBC 5.7 k/uL (3.8-10.6)
--- NOTE | 2022-05-23 06:17 | XR ---
EXAMINATION TYPE: XR chest 1V portable DATE OF EXAM: 05/23/2022 COMPARISON: 04/06/2022 HISTORY: Chest pain TECHNIQUE: FINDINGS: There is no heart failure nor confluent pneumonic infiltrate. There are sternal wires. Ther e are chest leads. Costophrenic angles are clear. IMPRESSION: No active cardiopulmonary disease. Normal heart size. No change.
[2022-05-23 06:20] LABS: Albumin 3.7 g/dL (3.5-5.0); Calcium 9.3 mg/dL (8.4-10.2); Potassium 4.2 mmol/L (3.5-5.1); Total Bilirubin 0.3 mg/dL (0.2-1.3); Total Protein 6.3 g/dL (6.3-8.2)
[2022-05-23 06:31] LABS: INR 0.9 (<1.2); Partial Thromboplastin Time 21.5 sec (22.0-30.0); Prothrombin Time 10.3 sec (9.0-12.0)
[2022-05-23] MEDS ORDERED: NITROGLYCERIN SL TABS 0.4 MG TAB SUBLINGUAL PRN (07:11)
[2022-05-23 13:16] LABS: Glucose,Whole Blood 105 mg/dL (70-110)
[2022-05-23 16:42] LABS: Glucose,Whole Blood 103 mg/dL (70-110)
[2022-05-23] MEDS ORDERED: ALBUTEROL NEBULIZED 2.5 MG/3 ML INHALATION PRN (16:48)
[2022-05-23] MEDS ORDERED: ACETAMINOPHEN TAB 325 MG TAB PO PRN (16:48)
[2022-05-23] MEDS ORDERED: MECLIZINE 25 MG TAB PO PRN (16:48)
[2022-05-23] MEDS ORDERED: INDOMETHACIN 25 MG CAP PO PRN (16:48)
[2022-05-23] MEDS ORDERED: FLUTICASONE 50MCG/SPRAY NASAL 16GM EA NOSTRIL PRN (16:48)
[2022-05-23] MEDS ORDERED: HYOSCYAMINE SULFATE 0.125 MG TAB PO PRN (16:48)
[2022-05-23] MEDS: ASPIRIN 81 MG PO SCH (16:56)
[2022-05-23] MEDS: INSULIN ASPART (NovoLOG) 100 UNIT/ML VIAL SQ SCH ×2 (16:58→20:32)
[2022-05-23] MEDS: SERTRALINE 50 MG TAB PO SCH (17:02)
[2022-05-23] MEDS: CLOPIDOGREL 75 MG TAB PO SCH (17:02)
[2022-05-23] MEDS: PANTOPRAZOLE 40 MG TABLET PO SCH (17:02)
[2022-05-23] MEDS: allopurinoL 300 MG TAB PO SCH (17:02)
[2022-05-23] MEDS: EZETIMIBE 10 MG TAB PO SCH (17:02)
[2022-05-23] MEDS: AMIODARONE 100 MG TAB PO SCH (17:16)
[2022-05-23] MEDS: SYMBICORT 160-4.5 MCG INHALER INHALATION SCH (20:10)
[2022-05-23 20:33] LABS: Glucose,Whole Blood 167 mg/dL (70-110)
[2022-05-23] MEDS: ATORVASTATIN 80 MG TAB PO SCH (20:36)
[2022-05-23] MEDS: SACUBITRIL/VALSARTAN 24 MG-26 MG TABLET PO SCH (20:36)
--- NOTE | 2022-05-23 22:50 | HP ---
HISTORY AND PHYSICAL CHIEF COMPLAINT: Chest pain. HISTORY OF PRESENT ILLNESS: This is another recent admission for this 51-year-old man with documented coronary artery disease status post CABG. He has been in and out of the hospital on numerous occasions over the last year with episodes of chest pain and congestive heart failure. He was just in [facility] for prerenal azotemia which cleared. He went home on then came back in to the emergency room here complaining of chest pain. He woke with a heaviness in his chest that was similar to what he has experienced in the past, but he had no shortness of breath, diaphoresis, nausea, etc. In the emergency room, his initial troponin was elevated slightly. REVIEW OF SYSTEMS: He has had no headaches, syncope, cough, hemoptysis, nausea, vomiting, melena, hematochezia, jaundice, hematuria, frequency, urgency, incontinence, etc. Past medical history, family history and personal and social histories are all unchanged from his recent admitting and discharge summaries. PHYSICAL EXAMINATION: VITAL SIGNS: Blood pressure is 138/86 with a pulse of 85, respirations of 30, and he is afebrile GENERAL: Appeared to be slightly overweight and in no acute distress. SKIN: Color is normal. Skin is warm and dry. HEENT: Head, ears, eyes, nose, mouth and throat were normal. CHEST: Clear. CARDIAC: Demonstrates sinus rhythm and no murmurs or extra sounds. ABDOMEN: Slightly protuberant, soft and nontender without any masses or visceromegaly. EXTREMITIES: Normal. NEUROLOGICAL: Intact. DIAGNOSES: He is admitted to the hospital with diagnoses, 1. Chest pain. 2. Coronary artery disease. 3. Status post coronary artery bypass grafting. 4. Recent episode of acute renal failure rec. PLAN: 1. Bedrest. 2. IV fluids. 3. Repeat cardiac enzymes and EKGs again and consult Cardiology. MMODL / IJN: [id number] /
[2022-05-24] MEDS: INSULIN ASPART (NovoLOG) 100 UNIT/ML VIAL SQ SCH ×4 (06:13→21:38)
[2022-05-24 06:14] LABS: Glucose,Whole Blood 145 mg/dL (70-110)
[2022-05-24] MEDS: PANTOPRAZOLE 40 MG TABLET PO SCH ×2 (06:14→16:44)
[2022-05-24] MEDS: SYMBICORT 160-4.5 MCG INHALER INHALATION SCH ×2 (08:09→20:19)
[2022-05-24] MEDS ORDERED: ASPIRIN 325 MG TAB PO SCH (09:00)
[2022-05-24] MEDS: EZETIMIBE 10 MG TAB PO SCH (09:07)
[2022-05-24] MEDS: CLOPIDOGREL 75 MG TAB PO SCH (09:07)
[2022-05-24] MEDS: SERTRALINE 50 MG TAB PO SCH (09:07)
[2022-05-24] MEDS: SACUBITRIL/VALSARTAN 24 MG-26 MG TABLET PO SCH ×2 (09:08→21:38)
[2022-05-24] MEDS: AMIODARONE 100 MG TAB PO SCH (09:08)
[2022-05-24] MEDS: ASPIRIN 81 MG PO SCH (09:08)
[2022-05-24] MEDS: allopurinoL 300 MG TAB PO SCH (09:08)
--- NOTE | 2022-05-24 09:59 | P.CRDCN ---
History of Present Illness Consult date: 05/24/22 Requesting physician: Edwin Hansen Reason for Consult (text): chest pain Chief complaint: chest pressure History of present illness: This is a 51-year-old gentleman who follows in the office with Dr. Bello. Has a history of CAD status post CABG with HONG to LAD, radial to RI, vein graft to the OM and vein graft to the PDA. History of postop A. fib, ischemic cardiomyopathy, hypertension, hyperlipidemia, CKD and diabetes. He is a prior smoker quit in September of this year. Most recent echocardiogram from December this year showed a normal SYSTOLIC function per Lexiscan MPI around the same time showed an EF of 33% but no evidence of reversible ischemia. According to the patient he was recently admitted to [facility] with hypotension and worsening renal function and at that time his medications were adjusted. He presented this admission with complaints of chest pressure, woke him from sleep, was in the chest center of his chest and did not radiate. The discomfort was not relieved with nitroglycerin and lasted about 2-1/2 hours. He feels it was similar to what he experienced prior to his CABG however at that time the pain was relieved somewhat with nitroglycerin. He had no associated symptoms, no relieving or aggravating factors. Labs on admission showed BUN of 43 and creatinine of 2.22 which appears to be at his baseline. Troponins came back at 0.043, 0.028 and 0.023. EKG showed sinus mechanism with ST-T wave abnormalities similar to previous. Vital signs have been stable. Upon examination the patient is resting completely embedded. He currently has no complaints of chest discomfort. His breathing has been stable. He denies any exertional symptoms. He does have mild lower extremity edema and typically wears compression socks at home. Denies any orthopnea or PND. Of note the patient states he does not have a follow-up appointment scheduled with Dr. Bello as he is anticipating a move to [place] in the near future. Past Medical History Past Medical History: Atrial Fibrillation, Asthma, Coronary Artery Disease (CAD), Heart Failure, COPD, Diabetes Mellitus, GERD/Reflux, Hyperlipidemia, Hyp ertension, Myocardial Infarction ([place]), Renal Disease, Sleep Apnea/CPAP/BIPAP Additional Past Medical History / Comment(s): NIDDM type II, CKD stage III, chronic anemia, CHLOE without device d/t insurance issues, mild COPD, [place] bilateral ears, gout. Last Myocardial Infarction Date:: 2008 History of Any Multi-Drug Resistant Organisms: MRSA Date of last positivie culture/infection: 10/2020 MDRO Source:: Right eye Past Surgical History: Adenoidectomy, Coronary Bypass/CABG, Heart Catheterization, Heart Catheterization With Stent, Tonsillectomy Additional Past Surgical History / Comment(s): Cardiac stents x5, quad bipass open heart 10/07/2021 Past Anesthesia/Blood Transfusion Reactions: Postoperative Nausea & Vomiting (PONV) Additional Past Anesthesia/Blood Transfusion Reaction / Comment(s): Has not had this reaction since he was 9 years old. Date of Last Stent Placement:: 2008 Past Psychological History: ADD/ADHD, Anxiety, Bipolar, Depression, PTSD Additional Psychological History / Comment(s): Pt resides at [facility], /[address] [place] [address]. Smoking Status: Former smoker Past Alcohol Use History: None Reported Additional Past Alcohol Use History / Comment(s): Pt quit smoking before CABG. Past Drug Use History: None Reported - Past Family History Father Family Medical History: Cancer, Coronary Artery Disease (CAD), Myocardial Infarction ([place]) Additional Family Medical History / Comment(s): at age 68 from m esothelioma, diagnosis of heart disease age of 60 Mother Family Medical History: Cancer, Coronary Artery Disease (CAD), Diabetes Mellitus, Liver Disease, Myocardial Infarction ([place]) Additional Family Medical History / Comment(s): from liver cancer, diagnosed with heart disease before the age of 60 Medications and Allergies Home Medications Medication Instructions Recorded Confirmed Type Acetaminophen Tab [Tylenol] 650 mg PO Q4HR PRN tab 10/14/21 05/23/22 Rx Atorvastatin [Lipitor] 80 mg PO HS #30 tab 10/14/21 05/23/22 Rx Sertraline [Zoloft] 50 mg PO DAILY #30 tab 10/14/21 05/23/22 Rx Albuterol Sulfate [Albuterol 2 puff INHALATION RT-QID PRN 11/28/21 05/23/22 History Sulfate Hfa] Budesonide/Formoterol Fumarate 2 puff INHALATION RT-BID 11/28/21 05/23/22 History [Symbicort 160-4.5 Mcg Inhaler] Clopidogrel [Plavix] 75 mg PO DAILY 12/29/21 05/23/22 History Sacubitril/Valsartan [Entresto 24 1 tab PO BID 12/29/21 05/23/22 History mg-26 mg Tablet] Dulaglutide [Trulicity] 0.75 mg SQ TU 03/12/22 05/23/22 History Fluticasone Nasal [place] [Flonase 2 spr EA NOSTRIL DAILY PRN 04/06/22 05/23/22 History Nasal [place]] Hyoscyamine Sulfate [Hyoscyamine 0.125 mg SL Q6H PRN 04/06/22 05/23/22 History Sulfate SL] Indomethacin [Indocin] 50 mg PO TID PRN 04/06/22 05/23/22 History Meclizine [Antivert] 25 mg PO TID PRN 04/06/22 05/23/22 History Pantoprazole Sodium [Protonix] 20 mg PO BID 04/06/22 05/23/22 History allopurinoL [Zyloprim] 300 mg PO DAILY 04/06/22 05/23/22 History Amiodarone [Cordarone] 100 mg PO DAILY 05/23/22 05/23/22 History Aspirin [Children's Aspirin] 81 mg PO DAILY 05/23/22 05/23/22 History Empagliflozin [Jardiance] 25 mg PO DAILY 05/23/22 05/23/22 History Ezetimibe [Zetia] 10 mg PO DAILY 05/23/22 05/23/22 History Allergies Allergy/AdvReac Type Severity Reaction Status Date / Time Penicillins Allergy Anaphylaxis Verified 05/23/22 12:27 spironolactone Allergy Anaphylaxis Verified 05/23/22 12:27 Sulfa (Sulfonamide Allergy Anaphylaxis Verified 05/23/22 12:27 Antibiotics) Physical Exam Vitals: Vital Signs Temp Pulse Pulse Resp BP BP Pulse Ox 05/24/22 08:57 97.9 F 79 16 111/72 97 05/24/22 03:39 84 16 116/75 98 05/24/22 02:00 100 18 05/24/22 00:00 100 18 128/86 96 05/23/22 20:00 98 F 91 18 117/77 98 05/23/22 16:30 86 05/23/22 16:23 97.9 F 86 16 157/96 98 05/23/22 16:02 84 16 156/90 98 05/23/22 10:01 81 16 139/87 97 Intake and Output 05/23/22 05/24/22 05/24/22 22:59 06:59 14:59 Intake Total 400 Balance 400 Intake: Oral 400 Other: Voiding Method Toilet Toilet Toilet # Voids 2 1 Weight 127.006 kg PHYSICAL EXAMINATION: This is a 51-year-old male in no apparent distress at the time of my examination. VITAL SIGNS: Blood pressure 111/72, heart rate 79, respirations 16, temp 97.9F. Patient is 97 % on room air. HEENT: Head is atraumatic, normocephalic. Pupils are equal, round. Sclerae anicteric. Conjunctivae are clear. Mucous membranes of the mouth are moist. Neck is supple. There is no elevated jugular venous pressure. No carotid bruit is heard. CHEST EXAMINATION: Lungs reveal diminished air entry bilaterally. No wheezes rales or rhonchi. Respirations even and nonlabored. HEART EXAMINATION: Heart regular, positive S1 and S2. No S3. No S4. Systolic murmur. ABDOMEN: Soft, obese, nontender. Bowel sounds are heard. No organomegaly noted. EXTREMITIES: 2+ peripheral pulses with evidence of trace peripheral edema and no calf tenderness noted. NEUROLOGIC EXAMINATION: Patient is awake, alert and oriented x3. Results 05/23/22 05:58 05/23/22 05:58 Cardiac Enzymes 05/23/22 05/23/22 Range/Units 09:26 12:21 Troponin I 0.028 0.024 (0.000-0.034) ng/mL Current Medications Generic Name Dose Route Start Last Admin Trade Name Freq PRN Reason Stop Dose Admin Acetaminophen 650 mg 05/23/22 16:48 Acetaminophen Tab 325 Mg Tab PO Q4HR PRN Fever and/ or Mild Pain Albuterol Sulfate 2.5 mg 05/23/22 16:48 Albuterol Nebulized 2.5 Mg/3 Ml INHALATION RT-QID PRN Shortness Of Breath Allopurinol 300 mg 05/23/22 17:00 05/24/22 09:08 Allopurinol 300 Mg Tab PO 300 mg DAILY NAYELY Administration Amiodarone HCl 100 mg 05/23/22 17:00 05/24/22 09:08 Amiodarone 100 Mg Tab PO 100 mg DAILY [facility] Administration Aspirin 81 mg 05/23/22 17:00 05/24/22 09:08 Aspirin 81 Mg PO 81 mg DAILY [facility] Administration Atorvastatin Calcium 80 mg 05/23/22 21:00 05/23/22 20:36 Atorvastatin 80 Mg Tab PO 80 mg HS [facility] Administration Budesonide/Formoterol Fumarate 2 puff 05/23/22 20:00 05/24/22 08:09 Symbicort 160-4.5 Mcg Inhaler INHALATION Not Given RT-BID [facility] Clopidogrel Bisulfate 75 mg 05/23/22 17:00 05/24/22 09:07 Clopidogrel 75 Mg Tab PO 75 mg DAILY [facility] Administration Ezetimibe 10 mg 05/23/22 17:00 05/24/22 09:07 Ezetimibe 10 Mg Tab PO 10 mg DAILY [facility] Administration Fluticasone Propionate 2 spray 05/23/22 16:48 Fluticasone 50mcg/[place] Nasal 16gm EA NOSTRIL DAILY PRN Allergy Symptoms Hyoscyamine 0.125 mg 05/23/22 16:48 Hyoscyamine Sulfate 0.125 Mg Tab PO Q6H PRN Diarrhea or cramping Indomethacin 50 mg 05/23/22 16:48 Indomethacin 25 Mg Cap PO TID PRN Gout Flare Insulin Aspart 0 unit 05/23/22 17:30 05/24/22 06:13 Insulin Aspart (Novolog) 100 Unit/Ml Vial SQ Not Given ACHS [facility] Protocol Meclizine HCl 25 mg 05/23/22 16:48 Meclizine 25 Mg Tab PO TID PRN Vertigo Nitroglycerin 0.4 mg 05/23/22 07:11 Nitroglycerin Sl Tabs 0.4 Mg Tab SUBLINGUAL Q5M PRN Chest Pain Empagliflozin [ 25 mg 05/24/22 09:00 05/24/22 08:54 Jardiance] 25 Mg PO Not Given Tablet DAILY [facility] Pantoprazole Sodium 40 mg 05/23/22 17:30 05/24/22 06:14 Pantoprazole 40 Mg Tablet PO Not Given AC-BID [facility] Sacubitril/Valsartan 1 each 05/23/22 21:00 05/24/22 09:08 Sacubitril/Valsartan 24 Mg-26 Mg Tablet PO 1 each BID [facility] Administration Sertraline HCl 50 mg 05/23/22 17:00 05/24/22 09:07 Sertraline 50 Mg Tab PO 50 mg DAILY NAYELY Administration Intake and Output 05/23/22 05/24/22 05/24/22 22:59 06:59 14:59 Intake Total 400 Balance 400 Intake: Oral 400 Other: Voiding Method Toilet Toilet Toilet # Voids 2 1 Weight 127.006 kg 05/23/22 05:58 05/23/22 05:58 Assessment and Plan Assessment: #1 symptoms of chest pressure, acute coronary event has been ruled out with Lexiscan MPI in December showing no evidence of ischemia #2 CAD status post CABG in September 2021 #3 cardiomyopathy #4 hypertension #5 hyperlipidemia #6 diabetes mellitus Plan: From cardiology's perspective we will discontinue amiodarone and add a beta brandy. Increase the patient's activity, ambulate the patient. The patient has no further complaints of chest discomfort and is stable may consider discharge tomorrow. We will continue to follow the patient and provide further recommendations accordingly. FUNERAL DIRECTOR'S ASSISTANT note has been reviewed, I agree with a documented findings and plan of care. Patient was seen and examined.
[2022-05-24] MEDS: METOPROLOL SUCCINATE (ER) 25 MG TAB.ER.24H PO SCH (10:16)
[2022-05-24 11:49] LABS: Glucose,Whole Blood 186 mg/dL (70-110)
[2022-05-24 12:58] LABS: Chol/HDL Ratio 3.67 Ratio; LDL Cholesterol,Calculated 40.9 mg/dL (0.0-131.0)
[2022-05-24 16:25] LABS: Glucose,Whole Blood 132 mg/dL (70-110)
[2022-05-24 19:54] LABS: Glucose,Whole Blood 163 mg/dL (70-110)
[2022-05-24] MEDS: ATORVASTATIN 80 MG TAB PO SCH (21:38)
[2022-05-25 00:01] VITALS: RESP 18
[2022-05-25 05:51] LABS: Glucose,Whole Blood 135 mg/dL (70-110)
[2022-05-25] MEDS: INSULIN ASPART (NovoLOG) 100 UNIT/ML VIAL SQ SCH ×3 (06:53→17:33)
[2022-05-25] MEDS: PANTOPRAZOLE 40 MG TABLET PO SCH ×2 (06:58→17:33)
[2022-05-25] MEDS: SYMBICORT 160-4.5 MCG INHALER INHALATION SCH (08:04)
[2022-05-25] MEDS: METOPROLOL SUCCINATE (ER) 25 MG TAB.ER.24H PO SCH (08:31)
[2022-05-25] MEDS: SACUBITRIL/VALSARTAN 24 MG-26 MG TABLET PO SCH (08:31)
[2022-05-25] MEDS: allopurinoL 300 MG TAB PO SCH (08:31)
[2022-05-25] MEDS: ASPIRIN 81 MG PO SCH (08:31)
[2022-05-25] MEDS: CLOPIDOGREL 75 MG TAB PO SCH (08:31)
[2022-05-25] MEDS: EZETIMIBE 10 MG TAB PO SCH (08:31)
[2022-05-25 08:32] LABS: Calcium 8.9 mg/dL (8.4-10.2); Potassium 4.4 mmol/L (3.5-5.1)
[2022-05-25] MEDS: SERTRALINE 50 MG TAB PO SCH (08:34)
[2022-05-25 09:49] VITALS: BP 124/67; TEMP 97.9
[2022-05-25 11:33] LABS: Glucose,Whole Blood 161 mg/dL (70-110)
--- NOTE | 2022-05-25 12:15 | P.PN ---
Subjective This is a 51-year-old gentleman who follows in the office with Dr. Bello. Has a history of CAD status post CABG with HONG to LAD, radial to RI, vein graft to the OM and vein graft to the PDA. History of postop A. fib, ischemic cardiomyopathy, hypertension, hyperlipidemia, CKD and diabetes. He is a prior smoker quit in September 2021. Most recent echocardiogram from December 2021 showed a normal SYSTOLIC function per Lexiscan MPI around the same time showed an EF of 33% but no evidence of reversible ischemia. According to the patient he was recently admitted to [facility] with hypotension and worsening renal function and at that time his medications were adjusted. He presented this admission with complaints of chest pressure, woke him from sleep, was in the chest center of his chest and did not radiate. The discomfort was not relieved with nitroglycerin and lasted about 2-1/2 hours. He had no associated symptoms, no relieving or aggravating factors. Troponins came back at 0.043, 0.028 and 0.023. EKG showed sinus mechanism with ST-T wave abnormalities similar to previous. Vital signs have been stable. Recently underwent Lexiscan stress test in 12/2021 which revealed no evidence of reversible ischemia. 05/25 Patient seen and examined at bedside, resting comfortably. He currently has no complaints of chest discomfort. His breathing has been stable. He denies any exertional symptoms. He does have mild lower extremity edema and typically wears compression socks at home. Denies any orthopnea or PND. Vitals signs are stable. He has been maintaining sinus mechanism monitor, no arrhythmia or ectopy noted. Labs, sodium 139, potassium 4.4, BUN 33, serum creatinine 1.9 GENERAL: Well-appearing, well-nourished and in no acute distress. NECK: Supple without JVD or thyromegaly. LUNGS: Breath sounds clear to auscultation bilaterally. Respiration equal and unlabored. No wheezes, rales or rhonchi. HEART: Regular rate and rhythm without murmurs, rubs or gallops. S1 and S2 heard. EXTREMITIES: Normal range of motion, no edema. No clubbing or cyanosis. Peripheral pulses intact. ASSESSMENT Symptoms of chest pressure, acute coronary event has been ruled out with Lexiscan MPI in December showing no evidence of ischemia CAD status post CABG with HONG to LAD, radial to RI, vein graft to the OM and vein graft to the PDA History of postop A. fib Ischemic cardiomyopathy Hupertension Hyperlipidemia Chronic kidney disease Type 2 diabetes PLAN From cardiology perspective continue current cardiac medications. Increase patient's activity as tolerated Patient with no further complaints of chest discomfort and is stable for discharge from cardiology perspective. Recommend follow up with Dr. Bello as an outpatient Nurse Practitioner note has been reviewed, I agree with a documented findings and plan of care. Patient was seen and examined. Objective - Vital Signs Vital signs: Vital Signs Temp 97.9 F 05/25/22 08:07 Pulse 91 05/25/22 08:07 Resp 18 05/25/22 08:07 BP 124/67 05/25/22 08:07 Pulse Ox 96 05/25/22 08:07 FiO2 Intake & Output 05/24/22 05/25/22 05/25/22 18:59 06:59 18:59 Intake Total 360 Balance 360 Intake: Oral 360 Other: Voiding Method Toilet Toilet Toilet # Voids 2 1 1 - Labs CBC & Chem 7: 05/23/22 05:58 05/25/22 07:08 Labs: Abnormal Lab Results - Last 24 Hours (Table) 05/23/22 05/24/22 05/24/22 Range/Units 05:58 16:21 19:53 BUN (9-20) mg/dL Creatinine (0.66-1.25) mg/dL Glucose (74-99) mg/dL POC Glucose (mg/dL) 132 H 163 H (70-110) mg/dL Triglycerides 174.00 H (0.00-149.00) mg/dL HDL Cholesterol 28.30 L (40.00-60.00) mg/dL 05/25/22 05/25/22 05/25/22 Range/Units 05:50 07:08 11:29 BUN 33 H (9-20) mg/dL Creatinine 1.96 H (0.66-1.25) mg/dL Glucose 118 H (74-99) mg/dL POC Glucose (mg/dL) 135 H 161 H (70-110) mg/dL Triglycerides (0.00-149.00) mg/dL HDL Cholesterol (40.00-60.00) mg/dL
[2022-05-25 12:37] VITALS: PULSE 67
--- NOTE | 2022-05-25 13:22 | CA ---
Transthoracic Echo Report Name: Balwinder Collado Age: 51 Gender: M : 1970 Exam Date: 05/25/2022 09:43 Exam Location: [facility] Ht (in): 71 Wt (lb): 280 Ordering Physician: Odalis Tolliver Attending/Referring Phys: [id number], Sharee [employer] Leader Karissa Rutledge, VERÓNICA Procedure CPT: Indications: Chest pain, cardiomyopathy Cardiac Hx: Quad bypass, 6 AZ, 5 stents Technical Quality: Technically difficult study Contrast 1: Lumason Total Dose (mL): 1 Contrast 2: Total Dose (mL): MEASUREMENTS (Male / Female) Normal Values 2D ECHO LV Diastolic Diameter PLAX 3.6 cm 4.2 - 5.9 / 3.9 - 5.3 cm LV Systolic Diameter PLAX 2.2 cm IVS Diastolic Thickness 1.1 cm 0.6 - 1.0 / 0.6 - 0.9 cm LVPW Diastolic Thickness 1.4 cm 0.6 - 1.0 / 0.6 - 0.9 cm LV Relative Wall Thickness 0.7 FINDINGS Left Ventricle Mildly increased septal wall thickness. Left ventricular ejection fraction is estimated at 55-60 %. Right Ventricle Right Atrium Left Atrium Mitral Valve Aortic Valve Tricuspid Valve Pulmonic Valve Pericardium No pericardial effusion. Aorta CONCLUSIONS Limited 2-D echo Moderate LVH Normal left ventricular ejection fraction 55-60% No pericardial effusion Previewed by: Dr. Edmundo Quiroz DO (Electronically Signed) Final Date: 25 May 2022 13:21
[2022-05-25 16:44] LABS: Glucose,Whole Blood 135 mg/dL (70-110)
[2022-05-26] MEDS ORDERED: NON FORMULARY DRUG (Dulaglutide [Trulicity] 0.75 MG/0.5 ML Each) SQ SCH (16:48)
== END 2022-05-25 18:18 | disposition home or self-care (01) ==
LOC: EC 05:34 → 3SCARD 07:11
PROVIDERS: ADMIT Family Medicine; ATTEND Family Medicine
DX: R07.89 Other chest pain (principal); R79.89 Other specified abnormal findings of blood chemistry; I13.0 Hypertensive heart and chronic kidney disease with heart failure and stage 1 through stage 4 chronic kidney disease, or unspecified chronic kidney disease; N18.30 Chronic kidney disease, stage 3 unspecified; I50.9 Heart failure, unspecified; I25.5 Ischemic cardiomyopathy; I25.10 Atherosclerotic heart disease of native coronary artery without angina pectoris; E11.22 Type 2 diabetes mellitus with diabetic chronic kidney disease; J44.9 Chronic obstructive pulmonary disease, unspecified; E78.5 Hyperlipidemia, unspecified; I48.91 Unspecified atrial fibrillation; I25.2 Old myocardial infarction; G47.33 Obstructive sleep apnea (adult) (pediatric); K21.9 Gastro-esophageal reflux disease without esophagitis; M10.9 Gout, unspecified; F43.10 Post-traumatic stress disorder, unspecified; F31.9 Bipolar disorder, unspecified; F90.9 Attention-deficit hyperactivity disorder, unspecified type; F41.9 Anxiety disorder, unspecified; Z79.51 Long term (current) use of inhaled steroids; Z79.02 Long term (current) use of antithrombotics/antiplatelets; Z79.82 Long term (current) use of aspirin; Z79.84 Long term (current) use of oral hypoglycemic drugs; Z79.899 Other long term (current) drug therapy; Z88.0 Allergy status to penicillin; Z88.2 Allergy status to sulfonamides; Z88.8 Allergy status to other drugs, medicaments and biological substances; Z86.14 Personal history of Methicillin resistant Staphylococcus aureus infection; Z95.5 Presence of coronary angioplasty implant and graft; Z95.1 Presence of aortocoronary bypass graft; Z87.891 Personal history of nicotine dependence; Z98.890 Other specified postprocedural states; Z82.49 Family history of ischemic heart disease and other diseases of the circulatory system; Z80.8 Family history of malignant neoplasm of other organs or systems; Z83.3 Family history of diabetes mellitus; Z80.0 Family history of malignant neoplasm of digestive organs; Z83.79 Family history of other diseases of the digestive system
CPT/HCPCS: 99285; 36415; 94640 ×3; 94760; 93005; 85379; 80061; 80053; 80048; 83735; 84484; 85025; 85610; 85730; 71045; G0378 ×3; C8924; Q9950; 93308

== ENCOUNTER 2022-06-22 02:47 | Emergency (ER) | payer OTHER ==
[2022-06-22 02:50] VITALS: BP 174/102; TEMP 97.8
--- NOTE | 2022-06-22 03:04 | ED ---
Abdominal Pain HPI - General Chief Complaint: Abdominal Pain Stated Complaint: Abd Pain Time Seen by Provider: 06/22/22 02:50 Source: patient Mode of arrival: ambulatory Limitations: no limitations - History of Present Illness Initial Comments: 51-year-old male presents emergency Department with reported abdominal pain. States that he has not had a bowel movement in 3 days. Normally goes every other day. He has been taking MiraLAX however has yet to have a bowel movement. He takes iron pills. Denies use of any narcotics. No history of bowel ob struction. He states he has been urinating normally. Abdominal pain is generalized. No chest pain or shortness of breath. No fevers. Denies any abdominal surgeries. No other alleviating, precipitating or modifying factors - Related Data Home Medications Medication Instructions Recorded Confirmed Albuterol Sulfate [Albuterol 2 puff INHALATION RT-QID PRN 11/28/21 05/23/22 Sulfate Hfa] Budesonide/Formoterol Fumarate 2 puff INHALATION RT-BID 11/28/21 05/23/22 [Symbicort 160-4.5 Mcg Inhaler] Clopidogrel [Plavix] 75 mg PO DAILY 12/29/21 05/23/22 Sacubitril/Valsartan [Entresto 24 1 tab PO BID 12/29/21 05/23/22 mg-26 mg Tablet] Dulaglutide [Trulicity] 0.75 mg SQ TU 03/12/22 05/23/22 Fluticasone Nasal [place] [Flonase 2 spr EA NOSTRIL DAILY PRN 04/06/22 05/23/22 Nasal [place]] Hyoscyamine Sulfate [Hyoscyamine 0.125 mg SL Q6H PRN 04/06/22 05/23/22 Sulfate SL] Meclizine [Antivert] 25 mg PO TID PRN 04/06/22 05/23/22 Pantoprazole Sodium [Protonix] 20 mg PO BID 04/06/22 05/23/22 allopurinoL [Zyloprim] 300 mg PO DAILY 04/06/22 05/23/22 Aspirin [Children's Aspirin] 81 mg PO DAILY 05/23/22 05/23/22 Empagliflozin [Jardiance] 25 mg PO DAILY 05/23/22 05/23/22 Ezetimibe [Zetia] 10 mg PO DAILY 05/23/22 05/23/22 Previous Rx's Medication Instructions Recorded Acetaminophen Tab [Tylenol] 650 mg PO Q4HR PRN tab 10/14/21 Atorvastatin [Lipitor] 80 mg PO HS #30 tab 10/14/21 Sertraline [Zoloft] 50 mg PO DAILY #30 tab 10/14/21 Metoprolol Succinate (ER) [Toprol 25 mg PO DAILY #90 tab 05/25/22 XL] Allergies Allergy/AdvReac Type Severity Reaction Status Date / Time Penicillins Allergy Anaphylaxis Verified 06/22/22 02:51 spironolactone Allergy Anaphylaxis Verified 06/22/22 02:51 Sulfa (Sulfonamide Allergy Anaphylaxis Verified 06/22/22 02:51 Antibiotics) Review of Systems ROS Statement: Those systems with pertinent positive or pertinent negative responses have been documented in the HPI. ROS Other: All systems not noted in ROS Statement are negative. Past Medical History Past Medical History: Atrial Fibrillation, Asthma, Coronary Artery Disease (CAD), Heart Failure, COPD, Diabetes Mellitus, GERD/Reflux, Hyperlipidemia, Hypertension, Myocardial Infarction ([place]), Renal Disease, Sleep Apnea/CPAP/BIPAP Additional Past Medical History / Comment(s): Pt recently admitted to [facility] [place] on 12/29/21 with CHF. Other hx: NIDDM type II, CKD stage III, chronic anemia, CHLOE without device d/t insurance issues, mild COPD, [place] bilateral ears, gout. Last Myocardial Infarction Date:: 2008 History of Any Multi-Drug Resistant Organisms: MRSA Date of last positivie culture/infection: 10/2020 MDRO Source:: Right eye Past Surgical History: Adenoidectomy, Coronary Bypass/CABG, Heart Catheterization, Heart Catheterization With Stent, Tonsillectomy Additional Past Surgical History / Comment(s): cardiac stents x 5, quad bipass open heart 10/07/2021 Past Anesthesia/Blood Transfusion Reactions: Postoperative Nausea & Vomiting (PONV) Additional Past Anesthesia/Blood Transfusion Reaction / Comment(s): Has not had this reaction since he was 9 years old. Date of Last Stent Placement:: 2008 Past Psychological History: ADD/ADHD, Anxiety, Bipolar, Depression, PTSD Smoking Status: Former smoker Past Alcohol Use History: None Reported Past Drug Use History: None Reported - Past Family History Father Family Medical History: Cancer, Coronary Artery Disease (CAD), Myocardial Infarction ([place]) Additional Family Medical History / Comment(s): at age 68 from mesothelioma, diagnosis of heart disease age of 60 Mother Family Medical History: Cancer, Coronary Artery Disease (CAD), Diabetes Mellitus, Liver Disease, Myocardial Infarction ([place]) Additional Family Medical History / Comment(s): from liver cancer, diagnosed with heart disease before the age of 60 General Exam Limitations: no limitations General appearance: alert, in no apparent distress Head exam: Present: atraumatic, normocephalic, normal inspection Eye exam: Present: normal appearance, PERRL, EOMI. Absent: scleral icterus, conjunctival injection, periorbital swelling ENT exam: Present: normal exam, mucous membranes moist Neck exam: Present: normal inspection. Absent: tenderness, meningismus, lymphadenopathy Respiratory exam: Present: normal lung sounds bilaterally. Absent: respiratory distress, wheezes, rales, rhonchi, stridor Cardiovascular Exam: Present: regular rate, normal rhythm, normal heart sounds. Absent: systolic murmur, diastolic murmur, rubs, gallop, clicks GI/Abdominal exam: Present: soft, tenderness (generalized), normal bowel sounds. Absent: distended, guarding, rebound, rigid Extremities exam: Present: normal inspection, full ROM, normal capillary refill. Absent: tenderness, pedal edema, joint swelling, calf tenderness Back exam: Present: normal inspection Neurological exam: Present: alert, oriented X3, CN II-XII intact Psychiatric exam: Present: normal affect, normal mood Skin exam: Present: warm, dry, intact, normal color. Absent: rash Course Vital Signs 06/22/22 06/22/22 02:48 04:37 Temperature 97.8 F Pulse Rate 80 70 Respiratory 18 200 H Rate Blood Pressure 174/102 O2 Sat by Pulse 97 Oximetry Medical Decision Making - Medical Decision Making On arrival patient is placed into room 4. He is sent for a KUB. No signs of obstruction. Patient does have stool in the right colon. Patient is given milk of magnesia to take home. Instructed to drink this. He has additional MiraLAX at home which I did recommend that he start taking daily until he has with bowel movements. He has any new or worsening symptoms he should return to the [facility] room. Patient was agreeable and discharged home in stable condition Disposition Clinical Impression: Constipation Disposition: HOME SELF-CARE Condition: Stable Instructions (If sedation given, give patient instructions): Constipation (ED) Additional Instructions: You may want to take MiraLAX daily if you're developing frequent constipation. Return to the emergency room for any new or worsening symptoms Is patient prescribed a controlled substance at d/c from ED?: No Referrals: Edwin Hansen MD [Primary Care Provider] - 1-2 days Time of Disposition: 04:07
--- NOTE | 2022-06-22 03:46 | XR ---
EXAMINATION TYPE: XR KUB DATE OF EXAM: 06/22/2022 COMPARISON: 04/06/2022 HISTORY: Pain TECHNIQUE: 2 views upright FINDINGS: There is no sign of intestinal obstruction or pneumoperitoneum. Fecal pattern is normal. No sign of a mass. No calcification seen over the kidneys. Lung bases are clear of consolidation. IMPRESSION: Nonacute abdomen. No adverse change.
[2022-06-22] MEDS ORDERED: MAGNESIUM CITRATE 296 ML BOTTLE PO ONE (04:06)
[2022-06-22] MEDS ORDERED: MAGNESIUM HYDROXIDE 2,400 MG/10 ML CUP PO PRN (04:13)
[2022-06-22 04:39] VITALS: PULSE 70; RESP 200
== END 2022-06-22 04:37 | disposition home or self-care (01) ==
LOC: EC 02:47
DX: K59.00 Constipation, unspecified (principal); R10.84 Generalized abdominal pain; I25.10 Atherosclerotic heart disease of native coronary artery without angina pectoris; J44.9 Chronic obstructive pulmonary disease, unspecified; I13.0 Hypertensive heart and chronic kidney disease with heart failure and stage 1 through stage 4 chronic kidney disease, or unspecified chronic kidney disease; E11.22 Type 2 diabetes mellitus with diabetic chronic kidney disease; N18.30 Chronic kidney disease, stage 3 unspecified; I50.9 Heart failure, unspecified; K21.9 Gastro-esophageal reflux disease without esophagitis; E78.5 Hyperlipidemia, unspecified; I25.2 Old myocardial infarction; Z86.79 Personal history of other diseases of the circulatory system; Z87.891 Personal history of nicotine dependence; Z79.52 Long term (current) use of systemic steroids; Z79.02 Long term (current) use of antithrombotics/antiplatelets; Z79.51 Long term (current) use of inhaled steroids; Z79.82 Long term (current) use of aspirin; Z79.899 Other long term (current) drug therapy; Z88.0 Allergy status to penicillin; Z88.3 Allergy status to other anti-infective agents; Z88.2 Allergy status to sulfonamides
CPT/HCPCS: 74018; 99283

== ENCOUNTER 2022-07-05 18:14 | Observation (INO) | payer OTHER ==
[2022-07-05] MEDS ORDERED: ONDANSETRON 4 MG/2 ML VIAL IVP STA (18:30)
[2022-07-05] MEDS ORDERED: MORPHINE SULFATE 4 MG/ML SYRINGE IV STA (18:30)
[2022-07-05] MEDS ORDERED: SODIUM CHLORIDE 0.9% 2,000 ML IV STA (18:30)
--- NOTE | 2022-07-05 18:37 | ED ---
Abdominal Pain HPI - General Chief Complaint: Abdominal Pain Stated Complaint: lower abd pain Time Seen by Provider: 07/05/22 18:24 Source: EMS Mode of arrival: EMS Limitations: no limitations - History of Present Illness Initial Comments: Patient is a 51-year-old male presenting with chief complaint of abdominal pain. Patient states pain is been ongoing for the last 2 weeks. Patient admits to sharp pain that travels throughout the abdomen. Also admits to bloating and distention. Patient states he has not had a bowel movement in 3 days. No radia tion of pain to the back or to the groin. No fever or chills. He admits to nausea and vomiting. No dysuria, hematuria, hematochezia, melena. Patient takes iron supplements, does not take pain medication. - Related Data Home Medications Medication Instructions Recorded Confirmed Albuterol Sulfate [Albuterol 2 puff INHALATION RT-QID PRN 11/28/21 05/23/22 Sulfate Hfa] Budesonide/Formoterol Fumarate 2 puff INHALATION RT-BID 11/28/21 05/23/22 [Symbicort 160-4.5 Mcg Inhaler] Clopidogrel [Plavix] 75 mg PO DAILY 12/29/21 05/23/22 Sacubitril/Valsartan [Entresto 24 1 tab PO BID 12/29/21 05/23/22 mg-26 mg Tablet] Dulaglutide [Trulicity] 0.75 mg SQ TU 03/12/22 05/23/22 Fluticasone Nasal [place] [Flonase 2 spr EA NOSTRIL DAILY PRN 04/06/22 05/23/22 Nasal [place]] Hyoscyamine Sulfate [Hyoscyamine 0.125 mg SL Q6H PRN 04/06/22 05/23/22 Sulfate SL] Meclizine [Antivert] 25 mg PO TID PRN 04/06/22 05/23/22 Pantoprazole Sodium [Protonix] 20 mg PO BID 04/06/22 05/23/22 allopurinoL [Zyloprim] 300 mg PO DAILY 04/06/22 05/23/22 Aspirin [Children's Aspirin] 81 mg PO DAILY 05/23/22 05/23/22 Empagliflozin [Jardiance] 25 mg PO DAILY 05/23/22 05/23/22 Ezetimibe [Zetia] 10 mg PO DAILY 05/23/22 05/23/22 Previous Rx's Medication Instructions Recorded Acetaminophen Tab [Tylenol] 650 mg PO Q4HR PRN tab 10/14/21 Atorvastatin [Lipitor] 80 mg PO HS #30 tab 10/14/21 Sertraline [Zoloft] 50 mg PO DAILY #30 tab 10/14/21 Metoprolol Succinate (ER) [Toprol 25 mg PO DAILY #90 tab 05/25/22 XL] Allergies Allergy/AdvReac Type Severity Reaction Status Date / Time Penicillins Allergy Anaphylaxis Verified 07/05/22 18:23 spironolactone Allergy Anaphylaxis Verified 07/05/22 18:23 Sulfa (Sulfonamide Allergy Anaphylaxis Verified 07/05/22 18:23 Antibiotics) Review of Systems ROS Statement: Those systems with pertinent positive or pertinent negative responses have been documented in the HPI. ROS Other: All systems not noted in ROS Statement are negative. Past Medical History Past Medical History: Atrial Fibrillation, Asthma, Coronary Artery Disease (CAD), Heart Failure, COPD, Diabetes Mellitus, GERD/Reflux, Hyperlipidemia, Hypertension, Myocardial Infarction ([place]), Renal Disease, Sleep Apnea/CPAP/BIPAP Additional Past Medical History / Comment(s): Pt recently admitted to [facility] on 12/29/21 with CHF. Other hx: NIDDM type II, CKD stage III, chronic anemia, CHLOE without device d/t insurance issues, mild COPD, [place] bilateral ears, gout. Last Myocardial Infarction Date:: 2008 History of Any Multi-Drug Resistant Organisms: MRSA Date of last positivie culture/infection: 10/2020 MDRO Source:: Right eye Past Surgical History: Adenoidectomy, Coronary Bypass/CABG, Heart Catheterization, Heart Catheterization With Stent, Tonsillectomy Additional Past Surgical History / Comment(s): cardiac stents x 5, quad bipass open heart 10/07/2021 Past Anesthesia/Blood Transfusion Reactions: Postoperative Nausea & Vomiting (PONV) Additional Past Anesthesia/Blood Transfusion Reaction / Comment(s): Has not had this reaction since he was 9 years old. Date of Last Stent Placement:: 2008 Past Psychological History: ADD/ADHD, Anxiety, Bipolar, Depression, PTSD Smoking Status: Former smoker Past Alcohol Use History: None Reported Past Drug Use History: None Reported - Past Family History Father Family Medical History: Cancer, Coronary Artery Disease (CAD), Myocardial Infarction ([place]) Additional Family Medical History / Comment(s): at age 68 from mesothelioma, diagnosis of heart disease age of 60 Mother Family Medical History: Cancer, Coronary Artery Disease (CAD), Diabetes M[place] t[place], Liver Disease, Myocardial Infarction ([place]) Additional Family Medical History / Comment(s): from liver cancer, diagnosed with heart disease before the age of 60 General Exam Limitations: no limitations General appearance: alert, in no apparent distress Head exam: Present: atraumatic, normocephalic, normal inspection Eye exam: Present: normal appearance, PERRL, EOMI. Absent: scleral icterus, conjunctival injection, periorbital swelling Neck exam: Present: normal inspection Respiratory exam: Present: normal lung sounds bilaterally. Absent: respiratory distress, wheezes, rales, rhonchi, stridor Cardiovascular Exam: Present: regular rate, normal rhythm, normal heart sounds. Absent: systolic murmur, diastolic murmur, rubs, gallop, clicks GI/Abdominal exam: Present: soft, distended, tenderness (Diffuse). Absent: guarding, rebound, rigid Neurological exam: Present: alert, oriented X3, CN II-XII intact Psychiatric exam: Present: normal affect, normal mood Skin exam: Present: warm, dry, intact, normal color. Absent: rash Course Vital Signs 07/05/22 07/05/22 07/05/22 18:16 19:50 19:58 Temperature 98.6 F Pulse Rate 77 74 78 Respiratory 18 Rate Blood Pressure 129/99 O2 Sat by Pulse 95 Oximetry Medical Decision Making - Medical Decision Making Patient is a 51-year-old male presenting with chief complaint of vague abdominal pain. Admits to nausea, vomiting, and has not had a bowel movement in 3 days. On examination abdomen appears distended, there is diffuse tenderness. Lab work shows potassium of 6.0, patient is given insulin and dextrose, albuterol, and calcium gluconate. Creatinine 2.5 and BUN 52, this is consistent with his baseline. CT of the abdomen and pelvis shows no acute process. Patient will be admitted for hyperkalemia. I spoke with Dr. Hansen who accepted admission. Patient is agreeable with this plan. I discussed this case with my attending Dr. Thorpe. - Lab Data Result diagrams: 07/05/22 18:41 07/05/22 18:41 Lab Results 07/05/22 07/05/22 07/05/22 Range/Units 18:41 18:41 18:41 WBC 9.2 (3.8-10.6) k/uL RBC 4.17 L (4.30-5.90) m/uL Hgb 12.5 L (13.0-17.5) gm/dL Hct 38.2 L (39.0-53.0) % MCV 91.6 (80.0-100.0) fL MCH 29.9 (25.0-35.0) pg MCHC 32.6 (31.0-37.0) g/dL RDW 15.8 H (11.5-15.5) % Plt Count 202 (150-450) k/uL MPV 7.8 Neutrophils % 77 % Lymphocytes % 13 % Monocytes % 5 % Eosinophils % 3 % Basophils % 1 % Neutrophils # 7.1 (1.3-7.7) k/uL Lymphocytes # 1.2 (1.0-4.8) k/uL Monocytes # 0.4 (0-1.0) k/uL Eosinophils # 0.3 (0-0.7) k/uL Basophils # 0.1 (0-0.2) k/uL Hypochromasia Moderate Sodium 139 (137-145) mmol/L Potassium 6.0 H (3.5-5.1) mmol/L Chloride 111 H (98-107) mmol/L Carbon Dioxide 18 L (22-30) mmol/L Anion Gap 10 mmol/L BUN 52 H (9-20) mg/dL Creatinine 2.50 H (0.66-1.25) mg/dL Est GFR (CKD-EPI)AfAm 33 (>60 ml/min/1.73 sqM) Est GFR (CKD-EPI)NonAf 29 (>60 ml/min/1.73 sqM) Glucose 140 H (74-99) mg/dL Plasma Lactic Acid Mak 1.2 (0.7-2.0) mmol/L Calcium 9.0 (8.4-10.2) mg/dL Total Bilirubin 0.5 (0.2-1.3) mg/dL AST 21 (17-59) U/L ALT 14 (4-49) U/L Alkaline Phosphatase 85 (38-126) U/L Troponin I (0.000-0.034) ng/mL Total Protein 6.6 (6.3-8.2) g/dL Albumin 4.0 (3.5-5.0) g/dL Amylase 58 (30-110) U/L Lipase 203 (23-300) U/L 07/05/22 Range/Units 18:41 WBC (3.8-10.6) k/uL RBC (4.30-5.90) m/uL Hgb (13.0-17.5) gm/dL Hct (39.0-53.0) % MCV (80.0-100.0) fL MCH (25.0-35.0) pg MCHC (31.0-37.0) g/dL RDW (11.5-15.5) % Plt Count (150-450) k/uL MPV Neutrophils % % Lymphocytes % % Monocytes % % Eosinophils % % Basophils % % Neutrophils # (1.3-7.7) k/uL Lymphocytes # (1.0-4.8) k/uL Monocytes # (0-1.0) k/uL Eosinophils # (0-0.7) k/uL Basophils # (0-0.2) k/uL Hypochromasia Sodium (137-145) mmol/L Potassium (3.5-5.1) mmol/L Chloride (98-107) mmol/L Carbon Dioxide (22-30) mmol/L Anion Gap mmol/L BUN (9-20) mg/dL Creatinine (0.66-1.25) mg/dL Est GFR (CKD-EPI)AfAm (>60 ml/min/1.73 sqM) Est GFR (CKD-EPI)NonAf (>60 ml/min/1.73 sqM) Glucose (74-99) mg/dL Plasma Lactic Acid Mak (0.7-2.0) mmol/L Calcium (8.4-10.2) mg/dL Total Bilirubin (0.2-1.3) mg/dL AST (17-59) U/L ALT (4-49) U/L Alkaline Phosphatase (38-126) U/L Troponin I 0.013 (0.000-0.034) ng/mL Total Protein (6.3-8.2) g/dL Albumin (3.5-5.0) g/dL Amylase (30-110) U/L Lipase (23-300) U/L - EKG Data EKG Comments: Sinus rhythm rate of 73. LA interval 209. QRS duration 107. QT/QTC 393/419. Normal axis. Flipped T waves in aVL are consistent with previous EKG. No ST deviation. Disposition Clinical Impression: Hyperkalemia Disposition: ADMITTED IP TO THIS HOSP Condition: Fair Referrals: Edwin Hansen MD [Primary Care Provider] - 1-2 days Time of Disposition: 20:21 Decision to Admit Reason: Admit from EC Decision Date: 07/05/22 Decision Time: 20:22
[2022-07-05 19:07] LABS: Basophils # (A) 0.1 k/uL (0-0.2); Basophils % (A) 1 %; Eosinophils # (A) 0.3 k/uL (0-0.7); Eosinophils % (A) 3 %; HCT 38.2 % (39.0-53.0); HGB 12.5 gm/dL (13.0-17.5); Hypochromasia Moderate; Lymphocytes # (A) 1.2 k/uL (1.0-4.8); Lymphocytes % (A) 13 %; MCH 29.9 pg (25.0-35.0); MCHC 32.6 g/dL (31.0-37.0); MCV 91.6 fL (80.0-100.0); Mean Platelet Volume 7.8; Monocytes # (A) 0.4 k/uL (0-1.0); Monocytes % (A) 5 %; Neutrophils # (A) 7.1 k/uL (1.3-7.7); Neutrophils % (A) 77 %; Platelet Count 202 k/uL (150-450); RBC 4.17 m/uL (4.30-5.90); RDW 15.8 % (11.5-15.5); WBC 9.2 k/uL (3.8-10.6)
[2022-07-05 19:11] LABS: Total Bilirubin 0.5 mg/dL (0.2-1.3); Total Protein 6.6 g/dL (6.3-8.2)
[2022-07-05] MEDS ORDERED: DEXTROSE 50% SYRINGE 50 ML IVP ONE (19:20)
[2022-07-05] MEDS ORDERED: INSULIN REGULAR 100 UNIT/ML VIAL (IV) IV ONE (19:20)
[2022-07-05] MEDS ORDERED: ALBUTEROL NEB (CONC) 2.5 MG/0.5 ML INHALATION ONE (19:20)
--- NOTE | 2022-07-05 20:01 | CT ---
EXAMINATION TYPE: CT abdomen pelvis wo con DATE OF EXAM: 07/05/2022 COMPARISON: 04/06/2022 HISTORY: abdominal pain, recent SBO CT DLP: 1806.4 mGycm Automated exposure control for dose reduction was used. Images obtained from the diaphragm to the floor the pelvis with no contrast. The lung bases are clear. No pleural effusion. Heart size is normal. No pericardial effusion. There i s a 1 cm calcified gallstone. Liver and spleen are intact. The stomach is intact. No pancreatic mass. The bile ducts are not dilated. There is no adrenal mass. Kidneys have normal size. No hydronephrosis. Ureters are not dilated. There is 3 mm calculus posterior right kidney. There is no retroperitoneal adenopathy. Abdominal aorta is atheromatous. The bladder distends smoothly. No inguinal hernia. No free fluid in the pelvis. No pelv ic mass. There is no mesenteric edema. No ascites or free air. No sign of a bowel obstruction. Appendix appear s normal. The lumbar vertebrae have normal spacing and alignment. Posterior elements are intact. No compression fracture. Bony pelvis is intact. The hip joints are intact. Sacroiliac joints are intact. There is 2 cm fat-containing umbilical hernia. IMPRESSION: No acute abnormality of the abdomen and pelvis. Normal appendix. No adverse change compared to old ex am. Cholelithiasis without change. Right renal calculus without change.
[2022-07-05] MEDS ORDERED: CALCIUM GLUCONATE IN NACL 1 GM in SALINE 1 100ML.BAG IVPB ONE (20:17)
[2022-07-05] MEDS ORDERED: NALOXONE 0.4 MG/ML 1 ML VIAL IV PRN (20:32)
[2022-07-05] MEDS: SODIUM CHLORIDE 0.9% 1,000 ML IV SCH (21:04)
[2022-07-05 21:33] LABS: Appearance,Urine Clear (Clear); Bilirubin,Urine Negative (Negative); Blood,Urine Negative (Negative); Color,Urine Light Yellow; Glucose,Urine (UA) 4+ (Negative); Ketones,Urine Negative (Negative); Leukocyte Esterase,Urine Negative (Negative); Nitrite,Urine Negative (Negative); PH, Urine 5.5 (5.0-8.0); Protein,Urine Negative (Negative); Specific Gravity,Urine 1.017 (1.001-1.035); Urobilinogen,Urine <2.0 mg/dL (<2.0)
[2022-07-06] MEDS: SODIUM CHLORIDE 0.9% 1,000 ML IV SCH ×3 (04:25→20:40)
[2022-07-06 07:45] LABS: Glucose,Whole Blood 148 mg/dL (70-110)
[2022-07-06] MEDS ORDERED: ACETAMINOPHEN TAB 325 MG TAB PO PRN (12:36)
[2022-07-06 12:43] LABS: Glucose,Whole Blood 116 mg/dL (70-110)
[2022-07-06 17:23] LABS: Glucose,Whole Blood 120 mg/dL (70-110)
[2022-07-06] MEDS: SYMBICORT 160-4.5 MCG INHALER INHALATION SCH (20:13)
[2022-07-06] MEDS: SACUBITRIL/VALSARTAN 24 MG-26 MG TABLET PO SCH (20:40)
[2022-07-06] MEDS: ATORVASTATIN 80 MG TAB PO SCH (20:40)
[2022-07-06 21:43] LABS: Glucose,Whole Blood 114 mg/dL (70-110)
--- NOTE | 2022-07-07 01:59 | HP ---
HISTORY AND PHYSICAL CHIEF COMPLAINT: Abdominal pain and hyperkalemia. HISTORY OF PRESENT ILLNESS: This is another admission for this 51-year-old obese white male with coronary artery disease who is in and out of the hospital frequently for various issues usually relating to chest pain or congestive heart failure. He presented to the emergency room with abdominal pain and was found to have an elevated potassium. He has had no significant problems with fever and chills, chest pain, abdominal pain, nausea, vomiting, diarrhea, melena, urinary complaints, etc. Past medical history, family history, personal and social histories are all unchanged from his past admissions. ALLERGIES: Sulfa and penicillin. MEDICATIONS: He is on, 1. Jardiance. 2. Allopurinol. 3. Entresto. 4. Metformin. 5. Atorvastatin. 6. Spironolactone. 7. Amiodarone. 8. Sertraline. 9. Zetia. 10.Amlodipine. 11.Lasix. 12.Hydralazine. 13.Toprol-XL. 14.Plavix. 15.Protonix. 16.Iron. PHYSICAL EXAMINATION: VITAL SIGNS: Blood pressure 132/78, pulse 78, respirations 20, and he is afebrile GENERAL: He appeared to be overweight and in no acute distress. Hydration was good. HEENT: Head, ears, eyes, nose, mouth and throat were normal. CHEST: Clear. CARDIAC: Normal sinus rhythm. ABDOMEN: Soft and protuberant. EXTREMITIES: Normal. NEUROLOGICAL: Intact. DIAGNOSES: He is admitted to the hospital with diagnoses, 1. Crampy abdominal pain. 2. Hyperkalemia. 3. Coronary artery disease. 4. Atherosclerotic cardiomyopathy. 5. Type 2 diabetes mellitus. PLAN: 1. Bedrest. 2. IV fluids. 3. Correct hyperkalemia. MMODL / IJN: [id number] /
[2022-07-07] MEDS: SODIUM CHLORIDE 0.9% 1,000 ML IV SCH ×3 (03:29→21:46)
[2022-07-07 07:10] LABS: Glucose,Whole Blood 126 mg/dL (70-110)
[2022-07-07] MEDS: SYMBICORT 160-4.5 MCG INHALER INHALATION SCH ×2 (07:46→19:34)
[2022-07-07] MEDS: AMIODARONE 200 MG TAB PO SCH (07:55)
[2022-07-07] MEDS: ASPIRIN 81 MG PO SCH (07:55)
[2022-07-07] MEDS: DAPAGLIFLOZIN PROPANEDIOL 10 MG TABLET PO SCH (07:55)
[2022-07-07] MEDS: LORATADINE 10 MG TAB PO SCH (07:55)
[2022-07-07] MEDS: CLOPIDOGREL 75 MG TAB PO SCH (07:55)
[2022-07-07] MEDS: SACUBITRIL/VALSARTAN 24 MG-26 MG TABLET PO SCH ×2 (07:55→21:48)
[2022-07-07] MEDS: EZETIMIBE 10 MG TAB PO SCH (07:55)
[2022-07-07] MEDS: METOPROLOL SUCCINATE (ER) 25 MG TAB.ER.24H PO SCH (07:55)
[2022-07-07] MEDS: SERTRALINE 50 MG TAB PO SCH (07:55)
[2022-07-07] MEDS: PANTOPRAZOLE 40 MG TABLET PO SCH (07:55)
[2022-07-07] MEDS ORDERED: SPIRONOLACTONE 25 MG TAB PO SCH (09:00)
[2022-07-07] MEDS ORDERED: NON FORMULARY DRUG (Dulaglutide [Trulicity] 0.75 MG/0.5 ML Each) SQ SCH (09:00)
[2022-07-07] MEDS ORDERED: POTASSIUM CHLORIDE ER 10 MEQ TAB.ER.PRT PO SCH (09:00)
--- NOTE | 2022-07-07 12:38 | PN ---
PROGRESS NOTE CHIEF COMPLAINT: Abdominal pain and hyperkalemia. HISTORY OF PRESENT ILLNESS: This gentleman's potassium is being treated. He has had no nausea, vomiting, diarrhea, etc. PHYSICAL EXAMINATION: CHEST: Clear. CARDIAC: Exam is normal. ABDOMEN: Protuberant, soft, and nontender. Bowel sounds are present. IMPRESSION: 1. . 2. Abdominal pain. 3. Congestive heart failure. PLAN: Continue with IV fluids and correction of electrolytes while increasing his activity. MMWINIFREDL / YOKON: [id number] /
[2022-07-07 12:44] LABS: Glucose,Whole Blood 113 mg/dL (70-110)
[2022-07-07 17:01] LABS: African American GFR (CKD) 49 (>60 ml/min/1.73 sqM); Anion Gap 10 mmol/L; Blood Urea Nitrogen 41 mg/dL (9-20); Carbon Dioxide 19 mmol/L (22-30); Chloride 106 mmol/L (98-107); Glucose 97 mg/dL (74-99); Magnesium 1.7 mg/dL (1.6-2.3); Non-African American GFR(CKD) 42 (>60 ml/min/1.73 sqM); Potassium 5.2 mmol/L (3.5-5.1); Sodium 135 mmol/L (137-145)
[2022-07-07 17:04] LABS: Glucose,Whole Blood 108 mg/dL (70-110)
[2022-07-07 20:08] LABS: Glucose,Whole Blood 161 mg/dL (70-110)
[2022-07-07] MEDS: ATORVASTATIN 80 MG TAB PO SCH (21:48)
--- NOTE | 2022-07-08 05:21 | HP ---
HISTORY AND PHYSICAL CHIEF COMPLAINT: Indigestion and nausea and vomiting and hyperkalemia. HISTORY OF PRESENT ILLNESS: This is another admission for this 51-year-old white male with a significant history of coronary artery disease and congestive heart failure. He was having a lot of difficulty with epigastric and abdominal discomfort associated with nausea and vomiting, came to the emergency room. His potassium was elevated. He was admitted. He has had no hematemesis, melena, hematochezia, fever and chills, chest pain, etc. In the emergency room, his BUN was 52 with a creatinine of 2.5. PHYSICAL EXAMINATION: CHEST: Clear. CARDIAC: Normal. ABDOMEN: Soft and nontender. VITAL SIGNS: Normal. EXTREMITIES: Normal. IMPRESSION: 1. Gastritis. 2. Nausea and vomiting. 3. Coronary artery disease. 4. Congestive heart failure. 5. Renal failure. PLAN: 1. Bedrest. 2. IV fluids. 3. Correct potassium. 4. Nephrology consult. DMITRI / NANCIE: [id number] /
[2022-07-08 06:35] LABS: African American GFR (CKD) 47 (>60 ml/min/1.73 sqM); Anion Gap 8 mmol/L; Blood Urea Nitrogen 41 mg/dL (9-20); Calcium 8.5 mg/dL (8.4-10.2); Carbon Dioxide 22 mmol/L (22-30); Chloride 107 mmol/L (98-107); Glucose 131 mg/dL (74-99); Non-African American GFR(CKD) 41 (>60 ml/min/1.73 sqM); Potassium 4.9 mmol/L (3.5-5.1); Sodium 137 mmol/L (137-145)
[2022-07-08 07:19] LABS: Glucose,Whole Blood 134 mg/dL (70-110)
[2022-07-08] MEDS: SACUBITRIL/VALSARTAN 24 MG-26 MG TABLET PO SCH ×2 (07:36→20:19)
[2022-07-08] MEDS: AMIODARONE 200 MG TAB PO SCH (07:36)
[2022-07-08] MEDS: LORATADINE 10 MG TAB PO SCH (07:36)
[2022-07-08] MEDS: METOPROLOL SUCCINATE (ER) 25 MG TAB.ER.24H PO SCH (07:36)
[2022-07-08] MEDS: PANTOPRAZOLE 40 MG TABLET PO SCH (07:36)
[2022-07-08] MEDS: EZETIMIBE 10 MG TAB PO SCH (07:36)
[2022-07-08] MEDS: ASPIRIN 81 MG PO SCH (07:36)
[2022-07-08] MEDS: SERTRALINE 50 MG TAB PO SCH (07:36)
[2022-07-08] MEDS: DAPAGLIFLOZIN PROPANEDIOL 10 MG TABLET PO SCH (07:36)
[2022-07-08] MEDS: SODIUM CHLORIDE 0.9% 1,000 ML IV SCH (07:36)
[2022-07-08] MEDS: CLOPIDOGREL 75 MG TAB PO SCH (07:36)
--- NOTE | 2022-07-08 08:30 | PN ---
PROGRESS NOTE CHIEF COMPLAINT: Nausea and vomiting with gastritis and hyperkalemia. HISTORY OF PRESENT ILLNESS: This gentleman is feeling a lot better. Nausea and vomiting stopped. PHYSICAL EXAMINATION: CHEST: Clear. CARDIAC: Exam is normal. VITAL SIGNS: Normal. IMPRESSION: 1. Nausea and vomiting, probably due to gastritis. 2. Hyperkalemia. 3. Coronary artery disease. 4. Congestive heart failure. 5. Renal failure. PLAN: Nephrology referral and increase activity and diet. MMODL / IJN: [id number] /
[2022-07-08] MEDS: SYMBICORT 160-4.5 MCG INHALER INHALATION SCH ×2 (08:39→20:06)
--- NOTE | 2022-07-08 11:05 | P.NPCON ---
History of Present Illness - Reason for Consult acute renal failure, chronic renal failure - History of Present Illness Reason for consultation: Acute kidney injury on chronic kidney disease History of present illness: Patient is a 51-year-old male seen in renal consultation for acute kidney injury on chronic kidney disease. Patient has chronic kidney disease stage IIIB. Baseline creatinine in the range of 1.8-2. Creatinine was 2.5 on admission. Patient presented to the hospital with abdominal pain and nausea going on for about 2-3 days prior to admission. Patient states he just felt that he was able to digest his food. He denies diarrhea. No fever or chills. He is now tolerating oral intake. Overall feels better since admission. Potassium was 6 on admission and is down to 4.9 today. Patient was taking potassium supplementation, spironolactone as well as entresto outpatient. Patient has history of coronary disease and has multiple stents. Also has history of CABG. Patient has long-standing history of diabetes. Denies chest pain or shortness of breath. Denies use of nonsteroidals. CT of the abdomen and pelvis showed no acute abnormality. No hydronephrosis was noted. Vital signs are stable. General: Awake. No acute distress. HEENT: Head exam is unremarkable. LUNGS: Breath sounds decreased. HEART: Rate and Rhythm are regular. ABDOMEN: Soft, obese. Nontender. EXTREMITITES: No edema. Past Medical History Past Medical History: Atrial Fibrillation, Asthma, Coronary Artery Disease (CAD), Heart Failure, COPD, Diabetes Mellitus, GERD/Reflux, Hyperlipidemia, Hypertension, Myocardial Infarction ([place]), Renal Disease, Sleep Apnea/CPAP/BIPAP Additional Past Medical History / Comment(s): Pt recently admitted to [facility] on 12/29/21 with CHF. Other hx: NIDDM type II, CKD stage III, chronic anemia, CHLOE without device d/t insurance issues, mild COPD, POARCH bilateral ears, gout. Last Myocardial Infarction Date:: 2008 History of Any Multi-Drug Resistant Organisms: MRSA Date of last positivie culture/infection: 10/2020 MDRO Source:: Right eye Past Surgical History: Adenoidectomy, Coronary Bypass/CABG, Heart Catheterization, Heart Catheterization With Stent, Tonsillectomy Additional Past Surgical History / Comment(s): cardiac stents x 5, quad bipass open heart 10/07/2021 Past Anesthesia/Blood Transfusion Reactions: Postoperative Nausea & Vomiting (PONV) Additional Past Anesthesia/Blood Transfusion Reaction / Comment(s): Has not had this reaction since he was 9 years old. Date of Last Stent Placement:: 2008 Past Psychological History: ADD/ADHD, Anxiety, Bipolar, Depression, PTSD Additional Psychological History / Comment(s): Pt resides at [facility], /[address] [place] [address]. Smoking Status: Former smoker Past Alcohol Use History: None Reported Additional Past Alcohol Use History / Comment(s): Pt quit smoking before CABG. Past Drug Use History: None Reported - Past Family History Father Family Medical History: Cancer, Coronary Artery Disease (CAD), Myocardial Infarction ([place]) Additional Family Medical History / Comment(s): at age 68 from meso thelioma, diagnosis of heart disease age of 60 Mother Family Medical History: Cancer, Coronary Artery Disease (CAD), Diabetes Mellitus, Liver Disease, Myocardial Infarction ([place]) Additional Family Medical History / Comment(s): from liver cancer, diagnosed with heart disease before the age of 60 Medications and Allergies Home Medications Medication Instructions Recorded Confirmed Type Acetaminophen Tab [Tylenol] 650 mg PO Q4HR PRN tab 10/14/21 07/05/22 Rx Atorvastatin [Lipitor] 80 mg PO HS #30 tab 10/14/21 07/05/22 Rx Sertraline [Zoloft] 50 mg PO DAILY #30 tab 10/14/21 07/05/22 Rx Albuterol Sulfate [Albuterol 2 puff INHALATION RT-QID PRN 11/28/21 05/23/22 History Sulfate Hfa] Budesonide/Formoterol Fumarate 2 puff INHALATION RT-BID 11/28/21 07/05/22 History [Symbicort 160-4.5 Mcg Inhaler] Clopidogrel [Plavix] 75 mg PO DAILY 12/29/21 07/05/22 History Sacubitril/Valsartan [Entresto 24 1 tab PO BID 12/29/21 07/05/22 History mg-26 mg Tablet] Dulaglutide [Trulicity] 0.75 mg SQ TU 03/12/22 07/05/22 History Pantoprazole Sodium [Protonix] 20 mg PO BID 04/06/22 07/05/22 History Aspirin [Children's Aspirin] 81 mg PO DAILY 05/23/22 07/05/22 History Empagliflozin [Jardiance] 25 mg PO DAILY 05/23/22 07/05/22 History Ezetimibe [Zetia] 10 mg PO DAILY 05/23/22 07/05/22 History Metoprolol Succinate (ER) [Toprol 25 mg PO DAILY #90 tab 05/25/22 07/05/22 Rx XL] Amiodarone [Cordarone] 200 mg PO DAILY 07/05/22 07/05/22 History Doxycycline Monohydrate 100 mg PO BID 07/05/22 07/05/22 History Loratadine 10 mg PO DAILY 07/05/22 07/05/22 History Potassium Chloride [Potassium 10 meq PO DAILY 07/05/22 07/05/22 History Chloride ER] Spironolactone [Aldactone] 50 mg PO DAILY 07/05/22 07/05/22 History Allergies Allergy/AdvReac Type Severity Reaction Status Date / Time Penicillins Allergy Anaphylaxis Verified 07/05/22 22:06 spironolactone Allergy Unknown, Verified 07/05/22 22:07 taking at home Sulfa (Sulfonamide Allergy Anaphylaxis Verified 07/05/22 22:06 Antibiotics) Physical Exam Vitals: Vital Signs Temp Pulse Resp BP BP Pulse Ox 07/08/22 07:00 97.7 F 71 17 132/80 95 07/08/22 02:00 97.7 F 73 18 134/77 96 07/07/22 20:00 98.3 F 64 18 133/88 100 07/07/22 15:00 97.5 F L 69 16 113/73 99 Intake and Output 07/07/22 07/08/22 07/08/22 22:59 06:59 14:59 Intake Total 600 318 Balance 600 318 Intake: Oral 600 318 Other: # Voids 1 1 Results - Lab Results Most recent lab results Calcium 8.5 mg/dL (8.4-10.2) 07/08/22 06:12 Magnesium 1.9 mg/dL (1.5-2.4) 07/08/22 06:12 07/05/22 18:41 07/08/22 06:12 Assessment and Plan Plan: Assessment: 1. Acute kidney injury mostly prerenal from poor intake and diuretics. Creatinine was 2.5 on admission and is 1.87 today. No hydronephrosis noted on CAT scan. 2. Chronic kidney disease stage IIIB with baseline creatinine 1.8 to secondary to nephrosclerosis. No proteinuria on UA. 3. Hyperkalemia secondary to acute kidney injury, acidosis, potassium supplementation, spironolactone and entresto. Improved. 4. Hypertension with chronic kidney disease. Controlled. 5. Diabetes mellitus. 6. Metabolic acidosis secondary to acute kidney injury. Better. Plan: Decreased normal saline to 50 mL an hour. Stop potassium supplementation and spironolactone. Continue with entresto for now. Avoid nephrotoxins. Continue to monitor renal function and urine output. Thank you for the consultation. I will continue to follow the patient with you during his hospital stay.
[2022-07-08 12:31] LABS: Glucose,Whole Blood 131 mg/dL (70-110)
[2022-07-08 17:25] LABS: Glucose,Whole Blood 106 mg/dL (70-110)
[2022-07-08 20:09] LABS: Glucose,Whole Blood 137 mg/dL (70-110)
[2022-07-08] MEDS: ATORVASTATIN 80 MG TAB PO SCH (20:19)
[2022-07-09 07:33] LABS: African American GFR (CKD) 50 (>60 ml/min/1.73 sqM); Anion Gap 6 mmol/L; Blood Urea Nitrogen 41 mg/dL (9-20); Calcium 8.6 mg/dL (8.4-10.2); Carbon Dioxide 25 mmol/L (22-30); Chloride 107 mmol/L (98-107); Glucose 113 mg/dL (74-99); Non-African American GFR(CKD) 43 (>60 ml/min/1.73 sqM); Potassium 5.6 mmol/L (3.5-5.1); Sodium 138 mmol/L (137-145)
[2022-07-09 07:52] LABS: Glucose,Whole Blood 119 mg/dL (70-110)
[2022-07-09] MEDS: CLOPIDOGREL 75 MG TAB PO SCH (08:07)
[2022-07-09] MEDS: METOPROLOL SUCCINATE (ER) 25 MG TAB.ER.24H PO SCH (08:07)
[2022-07-09] MEDS: SERTRALINE 50 MG TAB PO SCH (08:07)
[2022-07-09] MEDS: LORATADINE 10 MG TAB PO SCH (08:07)
[2022-07-09] MEDS: ASPIRIN 81 MG PO SCH (08:07)
[2022-07-09] MEDS: EZETIMIBE 10 MG TAB PO SCH (08:07)
[2022-07-09] MEDS: PANTOPRAZOLE 40 MG TABLET PO SCH (08:07)
[2022-07-09] MEDS: SACUBITRIL/VALSARTAN 24 MG-26 MG TABLET PO SCH ×2 (08:08→20:43)
[2022-07-09] MEDS: AMIODARONE 200 MG TAB PO SCH (08:08)
[2022-07-09] MEDS: DAPAGLIFLOZIN PROPANEDIOL 10 MG TABLET PO SCH (08:08)
[2022-07-09] MEDS: SODIUM CHLORIDE 0.9% 1,000 ML IV SCH (08:11)
[2022-07-09] MEDS: SYMBICORT 160-4.5 MCG INHALER INHALATION SCH ×2 (08:13→20:11)
[2022-07-09] MEDS ORDERED: SODIUM ZIRCONIUM CYCLOSILICATE 10 GM PACKET PO ONE (10:15)
[2022-07-09 12:29] LABS: Glucose,Whole Blood 120 mg/dL (70-110)
--- NOTE | 2022-07-09 13:39 | P.PN ---
Subjective Patient is seen for follow-up for acute kidney injury and top of chronic kidney disease. He was admitted to the hospital with abdominal pain, nausea. Currently maintained on IV fluids. Renal function has improved with improvement in serum potassium as well. Serum creatinine down to 1.79 and serum potassium was 5.6 today. Blood sugars are not significantly elevated Objective - Vital Signs Vital signs: Vital Signs Temp 97.6 F 07/09/22 07:00 Pulse 59 L 07/09/22 07:00 Resp 17 07/09/22 08:08 BP 123/83 07/09/22 07:00 Pulse Ox 97 07/09/22 07:00 FiO2 Intake & Output 07/08/22 07/09/22 07/09/22 18:59 06:59 18:59 Intake Total 658 118 Balance 658 118 Intake: Oral 658 118 Other: Voiding Method Toilet # Voids 2 1 - Exam Awake, comfortable, not in any acute distress Examination of the heart S1 and S2 Examination of the lungs bilateral breath sounds are heard Abdomen is soft nontender Examination lower extremity shows edema 1+ bilaterally 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 Acute kidney injury mostly prerenal from poor intake and diuretics. Creatinine was 2.5 on admission and is 1.7 today. No hydronephrosis noted on CAT scan. 2. Chronic kidney disease stage IIIB with baseline creatinine 1.8 to secondary to nephrosclerosis. No proteinuria on UA. 3. Hyperkalemia secondary to acute kidney injury, acidosis, potassium supplementation, spironolactone and entresto. Improved. 4. Hypertension with chronic kidney disease. Controlled. 5. Diabetes mellitus. 6. Metabolic acidosis secondary to acute kidney injury. Better. Plan: Bhaveshpa 1 today Continue to hold off on Spironolactone and potassium supplements Repeat labs in a.m. Possible discharge tomorrow
[2022-07-09 17:40] LABS: Glucose,Whole Blood 112 mg/dL (70-110)
[2022-07-09 19:51] LABS: Glucose,Whole Blood 189 mg/dL (70-110)
[2022-07-09] MEDS: ATORVASTATIN 80 MG TAB PO SCH (20:43)
[2022-07-10] MEDS: SODIUM CHLORIDE 0.9% 1,000 ML IV SCH (05:12)
[2022-07-10 07:21] LABS: Glucose,Whole Blood 120 mg/dL (70-110)
[2022-07-10] MEDS: SYMBICORT 160-4.5 MCG INHALER INHALATION SCH ×2 (08:24→20:08)
[2022-07-10] MEDS: METOPROLOL SUCCINATE (ER) 25 MG TAB.ER.24H PO SCH (09:05)
[2022-07-10] MEDS: DAPAGLIFLOZIN PROPANEDIOL 10 MG TABLET PO SCH (09:06)
[2022-07-10] MEDS: PANTOPRAZOLE 40 MG TABLET PO SCH (09:06)
[2022-07-10] MEDS: LORATADINE 10 MG TAB PO SCH (09:06)
[2022-07-10] MEDS: SACUBITRIL/VALSARTAN 24 MG-26 MG TABLET PO SCH ×2 (09:06→21:18)
[2022-07-10] MEDS: ASPIRIN 81 MG PO SCH (09:06)
[2022-07-10] MEDS: EZETIMIBE 10 MG TAB PO SCH (09:06)
[2022-07-10] MEDS: AMIODARONE 200 MG TAB PO SCH (09:06)
[2022-07-10] MEDS: SERTRALINE 50 MG TAB PO SCH (09:06)
[2022-07-10] MEDS: CLOPIDOGREL 75 MG TAB PO SCH (09:06)
[2022-07-10 11:04] LABS: African American GFR (CKD) 42 (>60 ml/min/1.73 sqM); Anion Gap 10 mmol/L; Blood Urea Nitrogen 41 mg/dL (9-20); Calcium 8.8 mg/dL (8.4-10.2); Carbon Dioxide 25 mmol/L (22-30); Chloride 104 mmol/L (98-107); Glucose 123 mg/dL (74-99); Non-African American GFR(CKD) 37 (>60 ml/min/1.73 sqM); Sodium 139 mmol/L (137-145)
--- NOTE | 2022-07-10 11:33 | P.PN ---
Subjective Patient is seen in follow-up for chronic kidney disease. Creatinine 2.03 today. Potassium improved to 5.0. Has been voiding. Blood pressure stable. On room air. No vomiting or diarrhea. No chest pain or shortness of breath. Vital signs are stable. General: No acute distress. HEENT: Head exam is unremarkable. LUNGS: Breath sounds decreased. HEART: Rate and Rhythm are regular. ABDOMEN: Soft, no distention. EXTREMITITES: No edema. Objective - Vital Signs Vital signs: Vital Signs Temp 98.2 F 07/10/22 07:00 Pulse 61 07/10/22 07:00 Resp 18 07/10/22 07:00 BP 116/78 07/10/22 07:00 Pulse Ox 97 07/10/22 07:00 FiO2 Intake & Output 07/09/22 07/10/22 07/10/22 18:59 06:59 18:59 Intake Total 474 480 Output Total 11 Balance 474 469 Intake: Oral 474 480 Output: Post Void Residual 11 Other: Voiding Method Toilet Toilet Toilet # Voids 1 - Labs CBC & Chem 7: 07/05/22 18:41 07/10/22 10:23 Labs: Abnormal Lab Results - Last 24 Hours (Table) 07/09/22 07/09/22 07/09/22 Range/Units 12:28 17:39 19:49 BUN (9-20) mg/dL Creatinine (0.66-1.25) mg/dL Glucose (74-99) mg/dL POC Glucose (mg/dL) 120 H 112 H 189 H (70-110) mg/dL 07/10/22 07/10/22 Range/Units 07:19 10:23 BUN 41 H (9-20) mg/dL Creatinine 2.03 H (0.66-1.25) mg/dL Glucose 123 H (74-99) mg/dL POC Glucose (mg/dL) 120 H (70-110) mg/dL Assessment and Plan Plan: Assessment: 1. Acute kidney injury mostly prerenal from poor intake and diuretics. Cr eatinine was 2.5 on admission and is fairly stable at 2.03 today. No hydronephrosis noted on CAT scan. 2. Chronic kidney disease stage IIIB with baseline creatinine 1.8 to secondary to nephrosclerosis. No proteinuria on UA. 3. Hyperkalemia secondary to acute kidney injury, acidosis, potassium leonard pplementation, spironolactone and entresto. Improved. 4. Hypertension with chronic kidney disease. Controlled. 5. Diabetes mellitus. 6. Metabolic acidosis secondary to acute kidney injury. Better. Plan: Hep-Lock IV fluids. Continue to hold off on potassium supplementation and spironolactone. Continue with entresto for now - will need to stop the potassium remains persistently elevated. Avoid nephrotoxins. Continue to monitor renal function and urine output. Repeat BMP and magnesium level 2-3 days postdischarge. Follow up outpatient 1 week post discharge. Advised patient to follow a low potassium diet.
[2022-07-10 12:23] LABS: Glucose,Whole Blood 171 mg/dL (70-110)
[2022-07-10 16:49] LABS: Glucose,Whole Blood 114 mg/dL (70-110)
[2022-07-10 17:20] LABS: Glucose,Whole Blood 123 mg/dL (70-110)
--- NOTE | 2022-07-10 20:20 | PN ---
PROGRESS NOTE CHIEF COMPLAINT: Hyperkalemia. HISTORY OF PRESENT ILLNESS: This gentleman is doing fairly well. He has had no chest pain, abdominal pain, shortness of breath, etc. Renal function is abnormal. He will be referred to Nephrology. PHYSICAL EXAMINATION: CHEST: Clear. CARDIAC: Exam is normal. ABDOMEN: Soft and nontender. IMPRESSION: 1. Hyperkalemia. 2. Renal failure. 3. Congestive heart failure. 4. Coronary artery disease. PLAN: 1. Progress activity. 2. Nephrology consult. MMODL / IJN: [id number] /
--- NOTE | 2022-07-10 20:26 | PN ---
PROGRESS NOTE CHIEF COMPLAINT: Hyperkalemia and renal failure. HISTORY OF PRESENT ILLNESS: This gentleman is feeling fairly well. He has had no nausea, shortness of breath, chest pain, etc. PHYSICAL EXAMINATION: CHEST: Clear. CARDIAC: Exam is normal. ABDOMEN: Soft and nontender. IMPRESSION: 1. Hyperkalemia. 2. Renal failure. PLAN: Continue to monitor his BUN and creatinine as well as his potassium. Nephrology is seeing him in consult. MMODL / IJN: [id number] /
[2022-07-10 21:04] LABS: Glucose,Whole Blood 139 mg/dL (70-110)
[2022-07-10] MEDS: ATORVASTATIN 80 MG TAB PO SCH (21:18)
[2022-07-11 07:26] LABS: Glucose,Whole Blood 123 mg/dL (70-110)
[2022-07-11] MEDS: SYMBICORT 160-4.5 MCG INHALER INHALATION SCH ×3 (08:10→19:27)
[2022-07-11] MEDS: LORATADINE 10 MG TAB PO SCH (08:21)
[2022-07-11] MEDS: AMIODARONE 200 MG TAB PO SCH (08:21)
[2022-07-11] MEDS: SERTRALINE 50 MG TAB PO SCH (08:21)
[2022-07-11] MEDS: EZETIMIBE 10 MG TAB PO SCH (08:21)
[2022-07-11] MEDS: METOPROLOL SUCCINATE (ER) 25 MG TAB.ER.24H PO SCH (08:21)
[2022-07-11] MEDS: CLOPIDOGREL 75 MG TAB PO SCH (08:21)
[2022-07-11] MEDS: PANTOPRAZOLE 40 MG TABLET PO SCH (08:21)
[2022-07-11] MEDS: SACUBITRIL/VALSARTAN 24 MG-26 MG TABLET PO SCH ×2 (08:21→20:02)
[2022-07-11] MEDS: ASPIRIN 81 MG PO SCH (08:21)
[2022-07-11] MEDS: DAPAGLIFLOZIN PROPANEDIOL 10 MG TABLET PO SCH (08:21)
[2022-07-11 11:45] LABS: African American GFR (CKD) 43.2 (60.0-200.0); Anion Gap 8.2 mmol/L (10.00-18.00); BUN/Creat Ratio 20.95 Ratio (12.00-20.00); Blood Urea Nitrogen 41.9 mg/dL (9.0-27.0); Calcium 8.8 mg/dL (8.7-10.3); Carbon Dioxide 24.8 mmol/L (20.0-27.5); Magnesium 2.2 mg/dL (1.5-2.4); Non-African American GFR(CKD) 37.3 (60.0-200.0); Potassium 5.3 mmol/L (3.5-5.5)
[2022-07-11 12:58] LABS: Glucose,Whole Blood 89 mg/dL (70-110)
--- NOTE | 2022-07-11 14:11 | P.PN ---
Subjective Progress Note Date: 07/11/22 Principal diagnosis: This is a 51-year-old male known with chronic kidney disease Baseline creatinine 1.8 came in because of abdominal pain nausea for about 2 or 3 days. He was de emed to have acute kidney injury from volume depletion. Blood pressure medications and diuretics were adjusted down. Nothing is currently 107/71 mm to 129/88. 24-hour intake and output not accurately measured He is feeling fine and denies any complaints at all. No dizziness no chest pain short of breath. Cough nausea vomiting diarrhea. Objective - Vital Signs Vital signs: Vital Signs Temp 97.4 F L 07/11/22 07:00 Pulse 57 L 07/11/22 07:00 Resp 17 07/11/22 07:00 BP 129/88 07/11/22 07:00 Pulse Ox 98 07/11/22 07:00 FiO2 Intake & Output 07/10/22 07/11/22 07/11/22 18:59 06:59 18:59 Intake Total 480 296 Output Total 11 Balance 469 296 Intake: Oral 480 296 Output: Post Void Residual 11 Other: Voiding Method Toilet Toilet # Voids 4 3 On examination awake alert oriented HEENT exam no JVP neck is supple no facial asymmetry Lungs clear to auscultation good air entry bilaterally Heart sounds unremarkable for any murmur rub gallop or rub abdomen soft nontender Extremities there was no edema of the neurologically awake alert oriented - Labs CBC & Chem 7: 07/05/22 18:41 07/11/22 07:06 Labs: Abnormal Lab Results - Last 24 Hours (Table) 07/10/22 07/10/22 07/10/22 Range/Units 16:48 17:19 21:03 Anion Gap (10.00-18.00) mmol/L BUN (9.0-27.0) mg/dL Creatinine (0.6-1.5) mg/dL Est GFR (CKD-EPI)AfAm (60.0-200.0) Est GFR (CKD-EPI)NonAf (60.0-200.0) BUN/Creatinine Ratio (12.00-20.00) Ratio Glucose (70-110) mg/dL POC Glucose (mg/dL) 114 H 123 H 139 H (70-110) mg/dL 07/11/22 07/11/22 Range/Units 07:06 07:24 Anion Gap 8.20 L (10.00-18.00) mmol/L BUN 41.9 H (9.0-27.0) mg/dL Creatinine 2.0 H (0.6-1.5) mg/dL Est GFR (CKD-EPI)AfAm 43.2 L (60.0-200.0) Est GFR (CKD-EPI)NonAf 37.3 L (60.0-200.0) BUN/Creatinine Ratio 20.95 H (12.00-20.00) Ratio Glucose 115 H (70-110) mg/dL POC Glucose (mg/dL) 123 H (70-110) mg/dL Assessment and Plan Assessment: Impression 1. Acute kidney injury from poor intake and diuretics improved creatinine down to 2.0. Baseline is about 1.8. 2. Chronic kidney disease. No proteinuria on urinalysis, not quantified 3. Atrial fibrillation. 4. Coronary artery disease. 5. Diabetes mellitus. 6. Hyperkalemia secondary to acute kidney injury and sprain likely and potassium and intestinal improved off of Aldactone. 7. Metabolic acidosis secondary to acute kidney injury, resolved Recommendation Patient can be discharged per the primary physician's discretion. Would hold Aldactone.
[2022-07-11 17:10] LABS: Glucose,Whole Blood 155 mg/dL (70-110)
[2022-07-11] MEDS: ATORVASTATIN 80 MG TAB PO SCH (20:02)
[2022-07-11 21:00] LABS: Glucose,Whole Blood 126 mg/dL (70-110)
[2022-07-12 07:14] LABS: Glucose,Whole Blood 132 mg/dL (70-110)
[2022-07-12] MEDS: METOPROLOL SUCCINATE (ER) 25 MG TAB.ER.24H PO SCH (08:23)
[2022-07-12] MEDS: CLOPIDOGREL 75 MG TAB PO SCH (08:23)
[2022-07-12] MEDS: AMIODARONE 200 MG TAB PO SCH (08:23)
[2022-07-12] MEDS: EZETIMIBE 10 MG TAB PO SCH (08:23)
[2022-07-12] MEDS: ASPIRIN 81 MG PO SCH (08:23)
[2022-07-12] MEDS: PANTOPRAZOLE 40 MG TABLET PO SCH (08:24)
[2022-07-12] MEDS: DAPAGLIFLOZIN PROPANEDIOL 10 MG TABLET PO SCH (08:24)
[2022-07-12] MEDS: LORATADINE 10 MG TAB PO SCH (08:24)
[2022-07-12] MEDS: SACUBITRIL/VALSARTAN 24 MG-26 MG TABLET PO SCH ×2 (08:24→20:43)
[2022-07-12] MEDS: SERTRALINE 50 MG TAB PO SCH (08:24)
[2022-07-12] MEDS: SYMBICORT 160-4.5 MCG INHALER INHALATION SCH ×2 (08:32→19:32)
[2022-07-12 12:19] LABS: Glucose,Whole Blood 102 mg/dL (70-110)
--- NOTE | 2022-07-12 12:25 | P.PN ---
Subjective Progress Note Date: 07/12/22 Principal diagnosis: This is a 51-year-old male known with chronic kidney disease Baseline creatinine 1.8 came in because of abdominal pain nausea for about 2 or 3 days. He was de emed to have acute kidney injury from volume depletion. Blood pressure medications and diuretics were adjusted down. He is feeling fine and denies any complaints at all. No dizziness no chest pain short of breath. Cough nausea vomiting diarrhea. His creatinine is down to 2 as of yesterday which is nearly his baseline. Vital signs are stable. Urine output is 103 2 mL He is fairly asymptomatic no abdominal pain good appetite no nausea vomiting fever chills cough shortness no dizziness Objective - Vital Signs Vital signs: Vital Signs Temp 97.5 F L 07/12/22 07:00 Pulse 63 07/12/22 08:00 Resp 16 07/12/22 08:00 BP 104/71 07/12/22 07:00 Pulse Ox 95 07/12/22 07:00 FiO2 Intake & Output 07/11/22 07/12/22 07/12/22 18:59 06:59 18:59 Intake Total 532 500 180 Balance 532 500 180 Intake: Oral 532 500 180 Other: Voiding Method Toilet Toilet Toilet # Voids 1 2 On examination awake alert oriented HEENT exam no facial asymmetry neck is supple Lungs clear to auscultation good air entry bilaterally Heart sounds unremarkable Abdomen soft nontender Extremity exam was trace edema Neuro logically awake alert oriented - Labs CBC & Chem 7: 07/05/22 18:41 07/11/22 07:06 Labs: Abnormal Lab Results - Last 24 Hours (Table) 07/11/22 07/11/22 07/12/22 Range/Units 17:09 20:58 07:13 POC Glucose (mg/dL) 155 H 126 H 132 H (70-110) mg/dL Assessment and Plan Assessment: Impression 1. Acute kidney injury from poor intake and diuretics improved creatinine down to 2.0. Baseline is about 1.8. 2. Chronic kidney disease. No proteinuria on urinalysis, not quantified 3. Atrial fibrillation. 4. Coronary artery disease. 5. Diabetes mellitus. 6. Hyperkalemia secondary to acute kidney injury and Aldactone. 7. Metabolic acidosis secondary to acute kidney injury, resolved Recommendation Patient can be discharged per the primary physician's discretion. Would hold Aldactone.
[2022-07-12 13:43] LABS: ALT 18 U/L (4-49); AST 19 U/L (17-59); African American GFR (CKD) 41 (>60 ml/min/1.73 sqM); Albumin 4.1 g/dL (3.5-5.0); Albumin/Globulin Ratio 1.6; Alkaline Phosphatase 100 U/L (38-126); Anion Gap 8 mmol/L; Blood Urea Nitrogen 41 mg/dL (9-20); Calcium 8.9 mg/dL (8.4-10.2); Carbon Dioxide 26 mmol/L (22-30); Chloride 101 mmol/L (98-107); Globulin 2.5 g/dL; Glucose 183 mg/dL (74-99); Non-African American GFR(CKD) 35 (>60 ml/min/1.73 sqM); Potassium 5.8 mmol/L (3.5-5.1); Sodium 135 mmol/L (137-145); Total Bilirubin 0.7 mg/dL (0.2-1.3); Total Protein 6.6 g/dL (6.3-8.2)
--- NOTE | 2022-07-12 14:35 | XR ---
EXAMINATION TYPE: XR chest 2V DATE OF EXAM: 07/12/2022 2:09 PM COMPARISON: Chest radiographs from 06/23/2022 TECHNIQUE: XR chest 2V Frontal and lateral views of the chest. CLINICAL INDICATION:Male, 51 years old with history of CHF progress; FINDINGS: Lungs/Pleura: There is no evidence of pleural effusion, focal consolidation, or pneumothorax. Pulmonary vascularity: Unremarkable. Heart/mediastinum: Cardiomediastinal silhouette is mildly enlarged and stable. Atherosclerotic calci fications are seen in the aorta. Left atrial appendage occlusion device is present. Musculoskeletal: No acute osseous pathology. Midline sternotomy wires are noted. IMPRESSION: No definitive congestive heart failure with mild thyromegaly.
[2022-07-12 16:42] LABS: Glucose,Whole Blood 167 mg/dL (70-110)
[2022-07-12] MEDS: ATORVASTATIN 80 MG TAB PO SCH (20:43)
[2022-07-12 20:49] LABS: Glucose,Whole Blood 131 mg/dL (70-110)
--- NOTE | 2022-07-13 00:33 | PN ---
PROGRESS NOTE CHIEF COMPLAINT: Hyperkalemia and renal failure. HISTORY OF PRESENT ILLNESS: This gentleman continues to improve. Potassium is back down into the normal range. Kidney function is also near normal. PHYSICAL EXAMINATION: CHEST: Clear. CARDIAC: Normal. ABDOMEN: Protuberant, soft and nontender. IMPRESSION: 1. Acute renal failure. 2. Dehydration. 3. Hyperkalemia. PLAN: Continue the program. He will stay in the hospital until Wednesday when he will be transported to [facility] / IJN: [id number] /
--- NOTE | 2022-07-13 00:57 | PN ---
PROGRESS NOTE CHIEF COMPLAINT: Hyperkalemia. HISTORY OF PRESENT ILLNESS: This gentleman is doing well. Renal function and potassium has returned normal. He will be discharged tomorrow and then he will be moved from [place] to [place]. DMITRI / NANCIE: [id number] /
--- NOTE | 2022-07-13 01:24 | PN ---
PROGRESS NOTE CHIEF COMPLAINT: Hyperkalemia. HISTORY OF PRESENT ILLNESS: This gentleman is doing well. Numbers are improved. He is going to be discharged on Wednesday and then picked up and move to [place]. He is having no trouble with emptying the bladder, which he has had before. PHYSICAL EXAMINATION: ABDOMEN: Soft and nontender without distention. CHEST: Clear. CARDIAC: Exam is normal. IMPRESSION: 1. Urinary retention. 2. Congestive heart failure. 3. Renal failure. 4. Dehydration. 5. Hyperkalemia. PLAN: If bladder problems persist, he will have a postvoid residual performed. MMODL / IJN: [id number] /
[2022-07-13 07:29] LABS: Glucose,Whole Blood 125 mg/dL (70-110)
[2022-07-13] MEDS: AMIODARONE 200 MG TAB PO SCH (08:25)
[2022-07-13] MEDS: PANTOPRAZOLE 40 MG TABLET PO SCH (08:25)
[2022-07-13] MEDS: ASPIRIN 81 MG PO SCH (08:25)
[2022-07-13] MEDS: EZETIMIBE 10 MG TAB PO SCH (08:26)
[2022-07-13] MEDS: DAPAGLIFLOZIN PROPANEDIOL 10 MG TABLET PO SCH (08:26)
[2022-07-13] MEDS: CLOPIDOGREL 75 MG TAB PO SCH (08:26)
[2022-07-13] MEDS: SERTRALINE 50 MG TAB PO SCH (08:27)
[2022-07-13] MEDS: LORATADINE 10 MG TAB PO SCH (08:27)
[2022-07-13] MEDS: SACUBITRIL/VALSARTAN 24 MG-26 MG TABLET PO SCH (08:27)
[2022-07-13] MEDS: METOPROLOL SUCCINATE (ER) 25 MG TAB.ER.24H PO SCH (08:27)
[2022-07-13 08:45] VITALS: BP 129/86; PULSE 59; RESP 16; TEMP 97.5
[2022-07-13] MEDS: SYMBICORT 160-4.5 MCG INHALER INHALATION SCH (08:49)
--- NOTE | 2022-07-13 13:45 | P.PN ---
Subjective Patient is seen for follow-up for acute kidney injury and top of chronic kidney disease. He was admitted to the hospital with abdominal pain, nausea. Currently maintained on IV fluids. Renal function has improved. Serum potassium had improved since admission but was 5.8 yesterday. Serum creatinine at baseline of around 2 mg/dL Objective - Vital Signs Vital signs: Vital Signs Temp 97.5 F L 07/13/22 07:00 Pulse 59 L 07/13/22 07:00 Resp 16 07/13/22 07:00 BP 129/86 07/13/22 07:00 Pulse Ox 99 07/13/22 07:00 FiO2 Intake & Output 07/12/22 07/13/22 07/13/22 18:59 06:59 18:59 Intake Total 416 118 Balance 416 118 Intake: Oral 416 118 Other: Voiding Method Toilet Toilet # Voids 1 2 - Exam Awake, comfortable, not in any acute distress Examination of the heart S1 and S2 Examination of the lungs bilateral breath sounds are heard Abdomen is soft nontender Examination lower extremity shows edema 1+ bilaterally COMPLIANCE PROFESSIONAL exam grossly intact - Labs CBC & Chem 7: 07/05/22 18:41 07/12/22 13:09 Labs: Abnormal Lab Results - Last 24 Hours (Table) 07/12/22 07/12/22 07/12/22 Range/Units 13:09 16:41 20:48 Sodium 135 L (137-145) mmol/L Potassium 5.8 H (3.5-5.1) mmol/L BUN 41 H (9-20) mg/dL Creatinine 2.09 H (0.66-1.25) mg/dL Glucose 183 H (74-99) mg/dL POC Glucose (mg/dL) 167 H 131 H (70-110) mg/dL 07/13/22 Range/Units 07:28 Sodium (137-145) mmol/L Potassium (3.5-5.1) mmol/L BUN (9-20) mg/dL Creatinine (0.66-1.25) mg/dL Glucose (74-99) mg/dL POC Glucose (mg/dL) 125 H (70-110) mg/dL Assessment and Plan Assessment: 1. Acute kidney injury mostly prerenal from poor intake and diuretics. Creatinine was 2.5 on admission and is 2.0 today. No hydronephrosis noted on CAT scan. 2. Chronic kidney disease stage IIIB with baseline creatinine 1.8 to secondary to nephrosclerosis. No proteinuria on UA. 3. Hyperkalemia secondary to acute kidney injury, acidosis, potassium supplem entation, spironolactone and entresto. Improved. 4. Hypertension with chronic kidney disease. Controlled. 5. Diabetes mellitus. 6. Metabolic acidosis secondary to acute kidney injury. Better. Plan: Resume Lasix 40 mg by mouth daily Discussed low potassium diet with the patient Patient will need labs to be done in 3-4 days post discharge.
[2022-07-13] MEDS ORDERED: SODIUM ZIRCONIUM CYCLOSILICATE 10 GM PACKET PO ONE (14:00)
--- NOTE | 2022-07-14 11:32 | DS ---
DISCHARGE SUMMARY CHIEF COMPLAINT: Weakness, shortness of breath, chest pain, and hyperkalemia. HISTORY OF PRESENT ILLNESS AND PHYSICAL EXAMINATION: Details of this man's history and physical can be found in the initial workup. LABORATORY STUDIES: While he is in a hospital he had laboratory studies, details of which can be found in the laboratory section of his chart. COURSE IN THE HOSPITAL: After admission, he was placed on bedrest, started on intravenous fluids and rehydrated. He was seen by Nephrology. BUN and creatinine dropped back into the normal range as did his potassium. He is doing well and is felt he could be discharged on the . He will be immediately transported to a new facility in [place]. FINAL DIAGNOSES: 1. Prerenal azotemia. 2. Hyperkalemia. 3. Coronary artery disease. 4. Congestive heart failure. OPERATIONS: None. CONSULTATIONS: Nephrology. He is improved. MMODL / IJN: [id number] /
== END 2022-07-13 12:35 | disposition home or self-care (01) ==
LOC: EC 18:14 → 6NMEDSUR 20:34
PROVIDERS: ADMIT Family Medicine; ATTEND Family Medicine
DX: N17.9 Acute kidney failure, unspecified (principal); E87.5 Hyperkalemia; E87.20 Acidosis, unspecified; E86.0 Dehydration; T50.2X5A Adverse effect of carbonic-anhydrase inhibitors, benzothiadiazides and other diuretics, initial encounter; I25.10 Atherosclerotic heart disease of native coronary artery without angina pectoris; I13.0 Hypertensive heart and chronic kidney disease with heart failure and stage 1 through stage 4 chronic kidney disease, or unspecified chronic kidney disease; E11.22 Type 2 diabetes mellitus with diabetic chronic kidney disease; I50.9 Heart failure, unspecified; N18.32 Chronic kidney disease, stage 3b; J44.9 Chronic obstructive pulmonary disease, unspecified; E78.5 Hyperlipidemia, unspecified; I48.91 Unspecified atrial fibrillation; I25.2 Old myocardial infarction; G47.33 Obstructive sleep apnea (adult) (pediatric); K21.9 Gastro-esophageal reflux disease without esophagitis; K29.70 Gastritis, unspecified, without bleeding; M10.9 Gout, unspecified; D64.9 Anemia, unspecified; H91.93 Unspecified hearing loss, bilateral; I42.9 Cardiomyopathy, unspecified; K80.20 Calculus of gallbladder without cholecystitis without obstruction; N20.0 Calculus of kidney; E66.9 Obesity, unspecified; Z68.41 Body mass index [BMI] 40.0-44.9, adult; R33.9 Retention of urine, unspecified; F43.10 Post-traumatic stress disorder, unspecified; F31.9 Bipolar disorder, unspecified; F90.9 Attention-deficit hyperactivity disorder, unspecified type; F41.9 Anxiety disorder, unspecified; Z79.51 Long term (current) use of inhaled steroids; Z79.02 Long term (current) use of antithrombotics/antiplatelets; Z79.85 Long-term (current) use of injectable non-insulin antidiabetic drugs; Z79.82 Long term (current) use of aspirin; Z79.84 Long term (current) use of oral hypoglycemic drugs; Z79.899 Other long term (current) drug therapy; Z88.0 Allergy status to penicillin; Z88.2 Allergy status to sulfonamides; Z88.8 Allergy status to other drugs, medicaments and biological substances; Z86.14 Personal history of Methicillin resistant Staphylococcus aureus infection; Z95.1 Presence of aortocoronary bypass graft; Z95.5 Presence of coronary angioplasty implant and graft; Z87.891 Personal history of nicotine dependence; Z98.890 Other specified postprocedural states; Z82.49 Family history of ischemic heart disease and other diseases of the circulatory system; Z83.3 Family history of diabetes mellitus; Z80.0 Family history of malignant neoplasm of digestive organs; Z80.8 Family history of malignant neoplasm of other organs or systems
CPT/HCPCS: 96361 ×2; 96374; 96375; 99285; 36415; 94640 ×15; 93005; 80053 ×2; 80048 ×5; 82150; 83605; 83690; 83735 ×4; 84132; 84484; 85025; 81003; 71046; 74176; G0378 ×9; J2270; J2405; J0610

== ENCOUNTER 2023-06-14 17:33 | Emergency (ER) | payer OTHER ==
[2023-06-14] MEDS ORDERED: KETOROLAC 15 MG/ML 1 ML VIAL IVP STA (22:08)
[2023-06-14] MEDS ORDERED: SODIUM CHLORIDE 0.9% 1,000 ML IV ONE (22:08)
[2023-06-14 23:15] LABS: ALT 20 U/L (4-49); AST 19 U/L (17-59); African American GFR (CKD) 49 (>60 ml/min/1.73 sqM); Albumin 3.5 g/dL (3.5-5.0); Alkaline Phosphatase 132 U/L (38-126); Anion Gap 5 mmol/L; Blood Urea Nitrogen 26 mg/dL (9-20); Calcium 8.6 mg/dL (8.4-10.2); Carbon Dioxide 25 mmol/L (22-30); Chloride 105 mmol/L (98-107); Glucose 281 mg/dL (74-99); Magnesium 1.7 mg/dL (1.6-2.3); Non-African American GFR(CKD) 43 (>60 ml/min/1.73 sqM); Potassium 4.5 mmol/L (3.5-5.1); Sodium 135 mmol/L (137-145); Total Bilirubin 0.5 mg/dL (0.2-1.3); Total Protein 6.6 g/dL (6.3-8.2)
[2023-06-14 23:24] LABS: Anisocytosis Slight; Basophils # (A) 0.1 k/uL (0-0.2); Basophils % (A) 1 %; Eosinophils # (A) 0.2 k/uL (0-0.7); Eosinophils % (A) 2 %; HCT 36.9 % (39.0-53.0); HGB 12.8 gm/dL (13.0-17.5); Lymphocytes # (A) 1.5 k/uL (1.0-4.8); Lymphocytes % (A) 16 %; MCH 30.8 pg (25.0-35.0); MCHC 34.8 g/dL (31.0-37.0); MCV 88.5 fL (80.0-100.0); Mean Platelet Volume 7.2; Monocytes # (A) 0.5 k/uL (0-1.0); Monocytes % (A) 5 %; Neutrophils # (A) 7.1 k/uL (1.3-7.7); Neutrophils % (A) 75 %; Platelet Count 230 k/uL (150-450); RBC 4.17 m/uL (4.30-5.90); RDW 16.5 % (11.5-15.5); WBC 9.4 k/uL (3.8-10.6)
--- NOTE | 2023-06-14 23:35 | XR ---
EXAM: XR Right Knee, 3 Views CLINICAL HISTORY: ITS.REASON XR Reason: Pain, swelling TECHNIQUE: Three views of the right knee. COMPARISON: No relevant prior studies available. FINDINGS: Bones/joints: Unremarkable. No acute fracture. No dislocation. Soft tissues: Prepatellar soft tissue swelling. IMPRESSION: Prepatellar soft tissue swelling.
--- NOTE | 2023-06-14 23:43 | ED ---
General Adult HPI <Aury Ortiz - Last Filed: 06/15/23 15:34> - General Source: patient Mode of arrival: ambulatory Limitations: no limitations <Tani Drake - Last Filed: 06/17/23 21:11> - General Chief complaint: Psychiatric Symptoms Stated complaint: right knee swollen Time Seen by Provider: 06/14/23 21:10 - History of Present Illness Initial comments: This is a 52-year-old male with a past medical history including previous CABG, hypertension, hyperlipidemia, diabetes, anxiety, depression and PTSD presents emergency department for right knee pain and suicidal ideation. The patient did state that he has had right knee pain over the last 3 days that was bothering him so he came to the emergency department. The patient did however state that the real reason he came to the emergency department was that he was having suicidal and homicidal thoughts. The patient stated that he was just finished with parole and was to leave his [place] [facility] house when earlier this morning he had an episode where he was told that he went to the kitchen and put a knife to his wrist but he does not remember this. The patient did state that he also had episodes where he had homicidal thoughts and stated "I thought of 14 ways to kill this person in 10 minutes." The patient stated that he knew this was hea ding down a dark past and he did state that he has had these thoughts before he wanted to come and get evaluated and treated for it before it became worse. The patient was otherwise resting in bed comfortably. (Tani Drake) - Related Data Home Medications Medication Instructions Recorded Confirmed Albuterol Sulfate [Albuterol 2 puff INHALATION RT-QID PRN 11/28/21 05/23/22 Sulfate Hfa] Budesonide/Formoterol Fumarate 2 puff INHALATION RT-BID 11/28/21 07/05/22 [Symbicort 160-4.5 Mcg Inhaler] Clopidogrel [Plavix] 75 mg PO DAILY 12/29/21 07/05/22 Sacubitril/Valsartan [Entresto 24 1 tab PO BID 12/29/21 07/05/22 mg-26 mg Tablet] Dulaglutide [Trulicity] 0.75 mg SQ TU 03/12/22 07/05/22 Pantoprazole Sodium [Protonix] 20 mg PO BID 04/06/22 07/05/22 Aspirin [Children's Aspirin] 81 mg PO DAILY 05/23/22 07/05/22 Empagliflozin [Jardiance] 25 mg PO DAILY 05/23/22 07/05/22 Ezetimibe [Zetia] 10 mg PO DAILY 05/23/22 07/05/22 Amiodarone [Cordarone] 200 mg PO DAILY 07/05/22 07/05/22 Doxycycline Monohydrate 100 mg PO BID 07/05/22 07/05/22 Loratadine 10 mg PO DAILY 07/05/22 07/05/22 Potassium Chloride [Klor-Con M10] 10 meq PO DAILY 07/05/22 07/05/22 Spironolactone [Aldactone] 50 mg PO DAILY 07/05/22 07/05/22 Previous Rx's Medication Instructions Recorded Acetaminophen Tab [Tylenol] 650 mg PO Q4HR PRN tab 10/14/21 Atorvastatin [Lipitor] 80 mg PO HS #30 tab 10/14/21 Sertraline [Zoloft] 50 mg PO DAILY #30 tab 10/14/21 Metoprolol Succinate (ER) [Toprol 25 mg PO DAILY #90 tab 05/25/22 XL] Allergies Allergy/AdvReac Type Severity Reaction Status Date / Time Penicillins Allergy Anaphylaxis Verified 07/05/22 22:06 spironolactone Allergy Unknown, Verified 07/05/22 22:07 taking at home Sulfa (Sulfonamide Allergy Anaphylaxis Verified 07/05/22 22:06 Antibiotics) Review of Systems ROS Other: All systems not noted in ROS Statement are negative. <Aury Ortiz - Last Filed: 06/15/23 15:34> ROS Other: All systems not noted in ROS Statement are negative. <Tani Drake - Last Filed: 06/17/23 21:11> ROS Statement: Those systems with pertinent positive or pertinent negative responses have been documented in the HPI. Past Medical History Past Medical History: Atrial Fibrillation, Asthma, Coronary Artery Disease (CAD), Heart Failure, COPD, Diabetes Mellitus, GERD/Reflux, Hyperlipidemia, Hypertension, Myocardial Infarction (SC), Renal Disease, Sleep Apnea/CPAP/BIPAP Additional Past Medical History / Comment(s): Pt recently admitted to [facility] on 12/29/21 with CHF. Other hx: NIDDM type II, CKD stage III, chronic anemia, CHLOE without device d/t insurance issues, mild COPD, [place] bilateral ears, gout. Last Myocardial Infarction Date:: 2008 History of Any Multi-Drug Resistant Organisms: MRSA Date of last positivie culture/infection: 10/2020 MDRO Source:: Right eye Past Surgical History: Adenoidectomy, Coronary Bypass/CABG, Heart Catheterization, Heart Catheterization With Stent, Tonsillectomy Additional Past Surgical History / Comment(s): cardiac stents x 5, quad bipass open heart 10/07/2021 Past Anesthesia/Blood Transfusion Reactions: Postoperative Nausea & Vomiting (PONV) Additional Past Anesthesia/Blood Transfusion Reaction / Comment(s): Has not had this reaction since he was 9 years old. Date of Last Stent Placement:: 2008 Past Psychological History: ADD/ADHD, Anxiety, Bipolar, Depression, PTSD Smoking Status: Former smoker Past Alcohol Use History: None Reported Past Drug Use History: None Reported - Past Family History Father Family Medical History: Cancer, Coronary Artery Disease (CAD), Myocardial Infarction (SC) Additional Family Medical History / Comment(s): at age 68 from mesothelioma, diagnosis of heart disease age of 60 Mother Family Medical History: Cancer, Coronary Artery Disease (CAD), Diabetes Mellitus, Liver Disease, Myocardial Infarction (SC) Additional Family Medical History / Comment(s): from liver cancer, diagnosed with heart disease before the age of 60 <Tani Drake - Last Filed: 06/17/23 21:11> General Exam Limitations: no limitations General appearance: alert, in no apparent distress, obese Head exam: Present: atraumatic, normocephalic, normal inspection Eye exam: Present: normal appearance, PERRL Pupils: Present: normal accommodation ENT exam: Present: normal exam, normal oropharynx, mucous membranes moist Neck exam: Present: normal inspection, full ROM Respiratory exam: Present: normal lung sounds bilaterally. Absent: respiratory distress, wheezes Cardiovascular Exam: Present: regular rate, normal rhythm, normal heart sounds GI/Abdominal exam: Present: soft, normal bowel sounds Extremities exam: Present: normal inspection, full ROM, joint swelling (Mild swelling noted to the right knee) Back exam: Present: normal inspection, full ROM Neurological exam: Present: alert, oriented X3, CN II-XII intact Psychiatric exam: Present: homicidal ideation, suicidal ideation Skin exam: Present: warm, dry <Tani Drake - Last Filed: 06/17/23 21:11> Course Vital Signs 06/14/23 06/15/23 06/15/23 18:19 12:00 15:58 Temperature 98 F 97.8 F 97.5 F L Pulse Rate 100 74 82 Respiratory 20 16 20 Rate Blood Pressure 180/100 154/95 156/78 O2 Sat by Pulse 95 96 98 Oximetry Medical Decision Making - Lab Data Result diagrams: 06/14/23 22:53 06/14/23 22:53 <Guerline Ortizah Heydi - Last Filed: 06/15/23 15:34> - Lab Data Result diagrams: 06/14/23 22:53 06/14/23 22:53 <Tani Drake - Last Filed: 06/17/23 21:11> - Medical Decision Making Was pt. sent in by a medical professional or institution (, PA, LIVESTOCK AGENT, urgent care, hospital, or long term...) When possible be specific @ -No Did you speak to anyone other than the patient for history (EMS, parent, family, police, friend...)? What history was obtained from this source @ -No Did you review nursing and triage notes (agree or disagree)? Why? @ -I reviewed and agree with nursing and triage notes Were old charts reviewed (outside hosp., previous admission, EMS record, old EKG, old radiological studies, urgent care reports/EKG's, long term records)? Report findings @ -No old charts were reviewed Differential Diagnosis (chest pain, altered mental status, abdominal pain women, abdominal pain men, vaginal bleeding, weakness, fever, dyspnea, syncope, headache, dizziness, GI bleed, back pain, seizure, CVA, palpatations, mental health)? @ -Suicidal ideation, homicide ideation, right knee arthritis, EKG interpreted by me (3pts min.). @ -None X-rays interpreted by me (1pt min.). @ -X-ray of the right knee was obtained and was interpreted by myself showing prepatellar soft tissue swelling. CT interpreted by me (1pt min.). @ -None done U/S interpreted by me (1pt. min.). @ -None done What testing was considered but not performed or refused? (CT, X-rays, U/S, labs)? Why? @ -None What meds were considered but not given or refused? Why? @ -None Did you discuss the management of the patient with other professionals (professionals i.e. , PA, LIVESTOCK AGENT, lab, RT, psych nurse, clinical social work aide, management lead, teacher, dog license officer supervisor, dependency case manager)? Give summary @ -No Was smoking cessation discussed for >3mins.? @ -No Was critical care preformed (if so, how long)? @ -No Were there social determinants of health that impacted care today? How? (Homelessness, low income, unemployed, alcoholism, drug addiction, transportation, low edu. Level, literacy, decrease access to med. care, [facility], rehab)? @ -No Was there de-escalation of care discussed even if they declined (Discuss DNR or withdrawal of care, Hospice)? DNR status @ -No What co-morbidities impacted this encounter? (DM, HTN, Smoking, COPD, CAD, Cancer, CVA, ARF, Chemo, Hep., AIDS, mental health diagnosis, sleep apnea, morbid obesity)? @ -Diabetes, hypertension, hyperlipidemia, CABG, anxiety, depression and PTSD Was patient admitted / discharged? Hospital course, mention meds given and route, prescriptions, significant lab abnormalities, going to OR and other pertinent info. @ -The patient was seen and evaluated in emergency department. Physical exam, the patient was resting in bed without any acute distress. Vital signs were stable. Due to the patient's initial complaints, an x-ray of the right knee was obtained and was negative. The patient was given Toradol. The patient also had basic laboratory workup obtained as he has not his medications the last several days but all laboratory workup was within normal limits. The patient was medically cleared for EPS evaluation at this time for the patient's suicidal and homicidal thoughts. The patient will be sent out to the oncoming physician pending evaluation by EPS in the morning. Update: The patient was discharged from the emergency department under a different physician. This occurred several days after I initially saw the slim ent. (Tani Drake) - Lab Data Lab Results 06/14/23 06/14/23 06/14/23 Range/Units 22:53 22:53 22:53 WBC 9.4 (3.8-10.6) k/uL RBC 4.17 L (4.30-5.90) m/uL Hgb 12.8 L (13.0-17.5) gm/dL Hct 36.9 L (39.0-53.0) % MCV 88.5 (80.0-100.0) fL MCH 30.8 (25.0-35.0) pg MCHC 34.8 (31.0-37.0) g/dL RDW 16.5 H (11.5-15.5) % Plt Count 230 (150-450) k/uL MPV 7.2 Neutrophils % 75 % Lymphocytes % 16 % Monocytes % 5 % Eosinophils % 2 % Basophils % 1 % Neutrophils # 7.1 (1.3-7.7) k/uL Lymphocytes # 1.5 (1.0-4.8) k/uL Monocytes # 0.5 (0-1.0) k/uL Eosinophils # 0.2 (0-0.7) k/uL Basophils # 0.1 (0-0.2) k/uL Anisocytosis Slight Sodium 135 L (137-145) mmol/L Potassium 4.5 (3.5-5.1) mmol/L Chloride 105 (98-107) mmol/L Carbon Dioxide 25 (22-30) mmol/L Anion Gap 5 mmol/L BUN 26 H (9-20) mg/dL Creatinine 1.79 H (0.66-1.25) mg/dL Est GFR (CKD-EPI)AfAm 49 (>60 ml/min/1.73 sqM) Est GFR (CKD-EPI)NonAf 43 (>60 ml/min/1.73 sqM) Glucose 281 H (74-99) mg/dL Calcium 8.6 (8.4-10.2) mg/dL Magnesium 1.7 (1.6-2.3) mg/dL Total Bilirubin 0.5 (0.2-1.3) mg/dL AST 19 (17-59) U/L ALT 20 (4-49) U/L Alkaline Phosphatase 132 H (38-126) U/L Total Protein 6.6 (6.3-8.2) g/dL Albumin 3.5 (3.5-5.0) g/dL Urine Color Urine Appearance (Clear) Urine pH (5.0-8.0) Ur Specific [place] (1.001-1.035) Urine Protein (Negative) Urine Glucose (UA) (Negative) Urine Ketones (Negative) Urine Blood (Negative) Urine Nitrite (Negative) Urine Bilirubin (Negative) Urine Urobilinogen (<2.0) mg/dL Ur Leukocyte Esterase (Negative) Urine RBC (0-5) /hpf Urine WBC (0-5) /hpf Ur Squamous Epith Cells (0-4) /hpf Hyaline Casts (0-2) /lpf Urine Mucus (None) /hpf Urine Opiates Screen (NotDetected) Ur Oxycodone Screen (NotDetected) Urine Methadone Screen (NotDetected) Ur Propoxyphene Screen (NotDetected) Ur Barbiturates Screen (NotDetected) U Tricyclic Antidepress (NotDetected) Ur Phencyclidine Scrn (NotDetected) Ur Amphetamines Screen (NotDetected) U Methamphetamines Scrn (NotDetected) U Benzodiazepines Scrn (NotDetected) Urine Cocaine Screen (NotDetected) U Marijuana (THC) Screen (NotDetected) Coronavirus (PCR) Not Detected (Not Detectd) 06/15/23 06/15/23 Range/Units 00:45 00:45 WBC (3.8-10.6) k/uL RBC (4.30-5.90) m/uL Hgb (13.0-17.5) gm/dL Hct (39.0-53.0) % MCV (80.0-100.0) fL MCH (25.0-35.0) pg MCHC (31.0-37.0) g/dL RDW (11.5-15.5) % Plt Count (150-450) k/uL MPV Neutrophils % % Lymphocytes % % Monocytes % % Eosinophils % % Basophils % % Neutrophils # (1.3-7.7) k/uL Lymphocytes # (1.0-4.8) k/uL Monocytes # (0-1.0) k/uL Eosinophils # (0-0.7) k/uL Basophils # (0-0.2) k/uL Anisocytosis Sodium (137-145) mmol/L Potassium (3.5-5.1) mmol/L Chloride (98-107) mmol/L Carbon Dioxide (22-30) mmol/L Anion Gap mmol/L BUN (9-20) mg/dL Creatinine (0.66-1.25) mg/dL Est GFR (CKD-EPI)AfAm (>60 ml/min/1.73 sqM) Est GFR (CKD-EPI)NonAf (>60 ml/min/1.73 sqM) Glucose (74-99) mg/dL Calcium (8.4-10.2) mg/dL Magnesium (1.6-2.3) mg/dL Total Bilirubin (0.2-1.3) mg/dL AST (17-59) U/L ALT (4-49) U/L Alkaline Phosphatase (38-126) U/L Total Protein (6.3-8.2) g/dL Albumin (3.5-5.0) g/dL Urine Color Light Yellow Urine Appearance Clear (Clear) Urine pH 6.0 (5.0-8.0) Ur Specific [place] 1.020 (1.001-1.035) Urine Protein 1+ H (Negative) Urine Glucose (UA) 4+ H (Negative) Urine Ketones Negative (Negative) Urine Blood Negative (Negative) Urine Nitrite Negative (Negative) Urine Bilirubin Negative (Negative) Urine Urobilinogen <2.0 (<2.0) mg/dL Ur Leukocyte Esterase Negative (Negative) Urine RBC <1 (0-5) /hpf Urine WBC 1 (0-5) /hpf Ur Squamous Epith Cells <1 (0-4) /hpf Hyaline Casts 4 H (0-2) /lpf Urine Mucus Rare H (None) /hpf Urine Opiates Screen Not Detected (NotDetected) Ur Oxycodone Screen Not Detected (NotDetected) Urine Methadone Screen Not Detected (NotDetected) Ur Propoxyphene Screen Not Detected (NotDetected) Ur Barbiturates Screen Not Detected (NotDetected) U Tricyclic Antidepress Not Detected (NotDetected) Ur Phencyclidine Scrn Not Detected (NotDetected) Ur Amphetamines Screen Not Detected (NotDetected) U Methamphetamines Scrn Not Detected (NotDetected) U Benzodiazepines Scrn Not Detected (NotDetected) Urine Cocaine Screen Not Detected (NotDetected) U Marijuana (THC) Screen Not Detected (NotDetected) Coronavirus (PCR) (Not Detectd) Disposition Is patient prescribed a controlled substance at d/c from ED?: No Time of Disposition: 15:35 <Aury Ortiz - Last Filed: 06/15/23 15:34> Is patient prescribed a controlled substance at d/c from ED?: No <Tani Drake - Last Filed: 06/17/23 21:11> Clinical Impression: Depression Disposition: HOME SELF-CARE Condition: Stable Instructions (If sedation given, give patient instructions): Depression (ED) Referrals: None,Stated [Primary Care Provider] - 1-2 days Forms: [facility], [facility]
[2023-06-15 01:32] LABS: Appearance,Urine Clear (Clear); Bilirubin,Urine Negative (Negative); Blood,Urine Negative (Negative); Color,Urine Light Yellow; Glucose,Urine (UA) 4+ (Negative); Hyaline Casts,Urine 4 /lpf (0-2); Ketones,Urine Negative (Negative); Leukocyte Esterase,Urine Negative (Negative); Mucus,Urine Rare /hpf; Nitrite,Urine Negative (Negative); Protein,Urine 1+ (Negative); RBC,Urine <1 /hpf (0-5); Squamous Epithelial Cell,Urine <1 /hpf (0-4); Urobilinogen,Urine <2.0 mg/dL (<2.0); WBC,Urine 1 /hpf (0-5)
[2023-06-15 01:55] LABS: Amphetamine Screen,Urine Not Detected (NotDetected); Barbiturate Screen,Urine Not Detected (NotDetected); Benzodiazepines Screen,Urine Not Detected (NotDetected); Cocaine Screen,Urine Not Detected (NotDetected); Methadone Screen, Urine Not Detected (NotDetected); Opiate Screen,Urine Not Detected (NotDetected); Oxycodone Screen, Urine Not Detected (NotDetected); Phencyclidine Screen,Urine Not Detected (NotDetected); Tricyclic Antidepressant,Urine Not Detected (NotDetected); Urn Cannabinoid Scrn Not Detected (NotDetected)
[2023-06-15 16:18] VITALS: BP 156/78; PULSE 82; RESP 20; TEMP 97.5
== END 2023-06-15 16:18 | disposition home or self-care (01) ==
LOC: EC 17:33
DX: F32.A Depression, unspecified (principal); R45.851 Suicidal ideations; R45.850 Homicidal ideations; M79.89 Other specified soft tissue disorders; E66.9 Obesity, unspecified; E11.22 Type 2 diabetes mellitus with diabetic chronic kidney disease; I13.0 Hypertensive heart and chronic kidney disease with heart failure and stage 1 through stage 4 chronic kidney disease, or unspecified chronic kidney disease; I50.9 Heart failure, unspecified; N18.30 Chronic kidney disease, stage 3 unspecified; I25.10 Atherosclerotic heart disease of native coronary artery without angina pectoris; I25.2 Old myocardial infarction; J44.9 Chronic obstructive pulmonary disease, unspecified; K21.9 Gastro-esophageal reflux disease without esophagitis; I48.91 Unspecified atrial fibrillation; E78.5 Hyperlipidemia, unspecified; Z20.822 Contact with and (suspected) exposure to COVID-19; Z68.41 Body mass index [BMI] 40.0-44.9, adult; Z79.02 Long term (current) use of antithrombotics/antiplatelets; Z79.51 Long term (current) use of inhaled steroids; Z79.84 Long term (current) use of oral hypoglycemic drugs; Z79.85 Long-term (current) use of injectable non-insulin antidiabetic drugs; Z79.82 Long term (current) use of aspirin; Z79.899 Other long term (current) drug therapy; Z88.0 Allergy status to penicillin; Z88.2 Allergy status to sulfonamides; Z88.8 Allergy status to other drugs, medicaments and biological substances; Z87.891 Personal history of nicotine dependence; Z95.1 Presence of aortocoronary bypass graft
CPT/HCPCS: 99285; 96374; 96361; 82075; 36415; 80053; 83735; 85025; 81001; 80306; 87635; 73562; J1885

== ENCOUNTER 2023-06-28 13:34 | Inpatient (IN) | payer OTHER ==
--- NOTE | 2023-06-28 13:47 | ED ---
Chest Pain HPI - General Source: patient, EMS, RN notes reviewed Mode of arrival: EMS Limitations: no limitations <Luis A Diane - Last Filed: 06/28/23 13:46> <Francois Vernon - Last Filed: 06/28/23 16:23> - General Chief Complaint: Chest Pain Stated Complaint: Chest Pain Time Seen by Provider: 06/28/23 13:46 - History of Present Illness Initial Comments: 52-year-old male presents emergency Department chief complaint chest pain. Patient states that this pain started one hour prior arrival patient was brought in via EMS. Patient states pain is similar to his primary cardiac events in the past. He states he was just hospitalized for CHF. Does admit that he has had multiple MIs, cardiac stents. Patient feels improved after being placed on oxygen. Patient reportedly was diaphoretic at the scene. (Luis A Diane) This is a 52-year-old male with a past medical history significant for bypass surgery as well as multiple stents. Patient also has diabetes hypertension high cholesterol and continues to smoke. Patient states he doesn't have any money to afford any aspirin he doesn't take any nitroglycerin because his previous doctor did not give him a prescription for nitro glycerin. Patient states she started having chest pain when he was walking around outside and it is since gotten better. Patient is not taking any aspirin or nitroglycerin. Patient denies any fever chills per patient states he was mildly short of breath per patient states the pain didn't radiate anywhere. Patient denies any nausea vomiting. (Francois Vernon) - Related Data Home Medications Medication Instructions Recorded Confirmed Budesonide/Formoterol Fumarate 2 puff INHALATION RT-BID 11/28/21 06/21/23 [Symbicort 160-4.5 Mcg Inhaler] Clopidogrel [Plavix] 75 mg PO DAILY 12/29/21 06/21/23 Empagliflozin [Jardiance] 25 mg PO DAILY 05/23/22 06/21/23 Amiodarone [Cordarone] 200 mg PO DAILY 07/05/22 06/21/23 Spironolactone [Aldactone] 50 mg PO BID 07/05/22 06/21/23 Albuterol Sulfate [Ventolin HFA] 1 puff INHALATION RT-Q6H PRN 06/21/23 06/21/23 Apixaban [Eliquis] 5 mg PO BID 06/21/23 06/21/23 Atorvastatin [Lipitor] 40 mg PO HS 06/21/23 06/21/23 Colchicine 0.3 mg PO BID 06/21/23 06/21/23 DULoxetine HCL [Cymbalta] 30 mg PO BID 06/21/23 06/21/23 Dulaglutide [Trulicity] 1.5 mg SQ Q7D 06/21/23 06/21/23 Fenofibrate [Lofibra] 54 mg PO DAILY 06/21/23 06/21/23 Insulin Glargine,Hum.rec.anlog 25 units SQ HS 06/21/23 06/21/23 [Lantus Solostar Pen] Isosorbide Mononitrate ER [Imdur] 30 mg PO DAILY 06/21/23 06/21/23 Nicotine 14Mg/24Hr Patch [Habitrol] 1 patch TRANSDERM DAILY 06/21/23 06/21/23 Pantoprazole [Protonix] 40 mg PO DAILY 06/21/23 06/21/23 Sacubitril/Valsartan [Entresto 49 1 tab PO BID 06/21/23 06/21/23 mg-51 mg Tablet] allopurinoL [Zyloprim] 300 mg PO DAILY 06/21/23 06/21/23 carvediloL [Coreg] 12.5 mg PO BID 06/21/23 06/21/23 metFORMIN HCL 1,000 mg PO BID 06/21/23 06/21/23 Previous Rx's Medication Instructions Recorded Acetaminophen Tab [Tylenol] 650 mg PO Q6HR PRN tab 06/26/23 Allergies Allergy/AdvReac Type Severity Reaction Status Date / Time Penicillins Allergy Anaphylaxis Verified 06/28/23 13:40 Sulfa (Sulfonamide Allergy Anaphylaxis Verified 06/28/23 13:40 Antibiotics) Review of Systems ROS Other: All systems not noted in ROS Statement are negative. <Luis A Diane - Last Filed: 06/28/23 13:46> ROS Other: All systems not noted in ROS Statement are negative. <Francois Vernon - Last Filed: 06/28/23 16:23> ROS Statement: Those systems with pertinent positive or pertinent negative responses have been documented in the HPI. Past Medical History Past Medical History: Atrial Fibrillation, Asthma, Coronary Artery Disease (CAD), Heart Failure, COPD, Diabetes Mellitus, GERD/Reflux, Hyperlipidemia, Hypertension, Myocardial Infarction ([place]), Renal Disease, Sleep Apnea/CPAP/BIPAP Additional Past Medical History / Comment(s): Pt recently admitted to [facility] on 12/29/21 with CHF. Other hx: NIDDM type II, CKD stage III, chronic anemia, CHLOE without device d/t insurance issues, mild COPD, [place] bilateral ears, gout. Last Myocardial Infarction Date:: 2008 History of Any Multi-Drug Resistant Organisms: MRSA Date of last positivie culture/infection: 10/2020 MDRO Source:: Right eye Past Surgical History: Adenoidectomy, Coronary Bypass/CABG, Heart Catheterization, Heart Catheterization With Stent, Tonsillectomy Additional Past Surgical History / Comment(s): cardiac stents x 5, quad bipass open heart 10/07/2021 Past Anesthesia/Blood Transfusion Reactions: Postoperative Nausea & Vomiting (PONV) Additional Past Anesthesia/Blood Transfusion Reaction / Comment(s): Has not had this reaction since he was 9 years old. Date of Last Stent Placement:: 2008 Past Psychological History: ADD/ADHD, Anxiety, Bipolar, Depression, PTSD Smoking Status: Current every day smoker Past Alcohol Use History: None Reported Past Drug Use History: None Reported - Past Family History Father Family Medical History: Cancer, Coronary Artery Disease (CAD), Myocardial Infarction (ME) Additional Family Medical History / Comment(s): at age 68 from mesothelioma, diagnosis of heart disease age of 60 Mother Family Medical History: Cancer, Coronary Artery Disease (CAD), Diabetes Mellitus, Liver Disease, Myocardial Infarction (ME) Additional Family Medical History / Comment(s): from liver cancer, diagnosed with heart disease before the age of 60 <Luis A Diane - Last Filed: 06/28/23 13:46> General Exam Limitations: no limitations <Luis A Diane - Last Filed: 06/28/23 13:46> <Francois Vernon - Last Filed: 06/28/23 16:23> - General Exam Comments Initial Comments: Visual Physical Exam Vital signs reviewed General: Well-appearing, nontoxic, no acute distress. Head: Normocephalic, atraumatic Eyes: PERRLA, EOMI ENT: Airway patent Chest: Nonlabored breathing Skin: No visual rash, normal skin tone Neuro: Alert and oriented 3 Musculoskeletal: No gross abnormalities (Luis A Diane) GENERAL: Patient is well-developed and well-nourished. Patient is nontoxic and well- hydrated and is in mild distress. ENT: Neck is soft and supple. No significant lymphadenopathy is noted. Oropharynx is clear. Moist mucous membranes. Neck has full range of motion without eliciting any pain. EYES: The sclera were anicteric and conjunctiva were pink and moist. Extraocular movements were intact and pupils were equal round and reactive to light. Eyelids were unremarkable. PULMONARY: Unlabored respirations. Good breath sounds bilaterally. No audible rales rhonchi or wheezing was noted. CARDIOVASCULAR: There is a regular rate and rhythm without any murmurs gallops or rubs. ABDOMEN: Soft and nontender with normal bowel sounds. SKIN: Skin is clear with no lesions or rashes and otherwise unremarkable. NEUROLOGIC: Patient is alert and oriented x3. Cranial nerves II through XII are grossly intact. Motor and sensory are also intact. Normal speech, volume and content. Symmetrical smile. MUSCULOSKELETAL: Normal extremities with adequate strength and full range of motion. No lower extremity swelling or edema. No calf tenderness. LYMPHATICS: No significant lymphadenopathy is noted PSYCHIATRIC: Normal psychiatric evaluation. (Francois Vernon) Course Vital Signs 06/28/23 06/28/23 13:37 14:58 Temperature 98.2 F Pulse Rate 84 97 Respiratory 16 18 Rate Blood Pressure 90/62 117/77 O2 Sat by Pulse 93 L 95 Oximetry Chest Pain [facility] <Luis A Diane - Last Filed: 06/28/23 13:46> <Francois Vernon - Last Filed: 06/28/23 16:23> - MDM I performed a quick note portion of this chart signed Luis A Diane PA-C (Luis A Diane) EKG was interpreted by myself. EKG shows sinus tachycardia with occasional PAC at 102 bpm OH interval 184 QRS is 103 Q-T of 375 QTC is 434. Patient's EKG show s no ST segment elevation or depression. Patient has Q waves in the inferior leads. A repeat EKG was done and it was interpreted by myself. EKG shows sinus rhythm at 95 bpm QRS is 105 QT interval 390 QTC is 451. Patient's EKG has a OH interval of 180. EKG also has multiple PACs Was pt. sent in by a medical professional or institution (, [facility], [employer], urgent care, hospital, or group home...) When possible be specific @ -No Did you speak to anyone other than the patient for history (EMS, parent, family, police, friend...)? What history was obtained from this source @ -No Did you review nursing and triage notes (agree or disagree)? Why? @ -I reviewed and agree with nursing and triage notes Were old charts reviewed (outside hosp., previous admission, EMS record, old EKG, old radiological studies, urgent care reports/EKG's, group home records)? Report findings @ -Reviewed prior charts prior lab work Differential Diagnosis (chest pain, altered mental status, abdominal pain women, abdominal pain men, vaginal bleeding, weakness, fever, dyspnea, syncope, headache, dizziness, GI bleed, back pain, seizure, CVA, palpatations, mental health, musculoskeletal)? @ -Differential Chest Pain: Stable Angina, Unstable Angina, STEMI, NSTEMI Aortic Dissection, Pneumothorax, Musculoskeletal, Esophageal Spasm GERD, Cholecystitis, Pancreatitis, Zoster, this is not meant to be an all-inclusive list. EKG interpreted by me (3pts min.). @ -As above X-rays interpreted by me (1pt min.). @ -Chest x-ray shows no acute abnormality CT interpreted by me (1pt min.). @ -None done U/S interpreted by me (1pt. min.). @ -None done What testing was considered but not performed or refused? (CT, X-rays, U/S, labs)? Why? @ -None What meds were considered but not given or refused? Why? @ -None Did you discuss the management of the patient with other professionals (professionals i.e. , [facility], [employer], lab, RT, psych nurse, nursing home social worker, fire operations forester, teacher, financial aid officer, caser)? Give summary @ -I spoke with Dr. Cummings and he agreed to admit the patient Was smoking cessation discussed for >3mins.? @ -No Was critical care preformed (if so, how long)? @ -35 minutes Were there social determinants of health that impacted care today? How? (Homelessness, low income, unemployed, alcoholism, drug addiction, transportation, low edu. Level, literacy, decrease access to med. care, mcc, rehab)? @ -No Was there de-escalation of care discussed even if they declined (Discuss DNR or withdrawal of care, Hospice)? DNR status @ -No What co-morbidities impacted this encounter? (DM, HTN, Smoking, COPD, CAD, Cancer, CVA, ARF, Chemo, Hep., AIDS, mental health diagnosis, sleep apnea, morbid obesity)? @ -None Was patient admitted / discharged? Hospital course, mention meds given and route, prescriptions, significant lab abnormalities, going to OR and other pertinent info. @ -Patient's troponin was mildly elevated and that in combination with a significant history I thought the patient needed to be admitted Dr. Cummings and was in agreement I admitted the patient wrote admitting orders I consulted cardiology. Patient was given aspirin and Nitropaste and started on heparin in the emergency department Undiagnosed new problem with uncertain prognosis? @ -No Drug Therapy requiring intensive monitoring for toxicity (Heparin, Nitro, Insulin, Cardizem)? @ -No Were any procedures done? @ -No Diagnosis/symptom? @ -nSTEMI Acute, or Chronic, or Acute on Chronic? @ -Acute Uncomplicated (without systemic symptoms) or Complicated (systemic symptoms)? @ -Complicated Side effects of treatment? @ -No Exacerbation, Progression, or Severe Exacerbation? @ -No Poses a threat to life or bodily function? How? (Chest pain, [place], ME, pneumonia, PE, COPD, DKA, ARF, appy, cholecystitis, CVA, Diverticulitis, Homicidal, Suicidal, threat to staff... and all critical care pts) @ -No Diagnosis/symptom? @ -Acute on chronic renal failure Acute, or Chronic, or Acute on Chronic? @ -default Uncomplicated (without systemic symptoms) or Complicated (systemic symptoms)? @ -Complicated Side effects of treatment? @ -none Exacerbation, Progression, or Severe Exacerbation] @ -no Poses a threat to life or bodily function? @ -no (Francois Vernon) Critical Care Time Critical Care Time: Yes Total Critical Care Time: 35 <Francois Vernon - Last Filed: 06/28/23 16:23> Disposition <Luis A Diane - Last Filed: 06/28/23 13:46> Time of Disposition: 15:50 <Francois Vernon - Last Filed: 06/28/23 16:23> Clinical Impression: Acute non-ST elevation myocardial infarction (NSTEMI), Acute on chronic renal failure Disposition: ADMITTED IP TO THIS HOSP Referrals: Edwin Hansen MD [Primary Care Provider] - 1-2 days
[2023-06-28 14:10] LABS: Basophils # (A) 0.1 k/uL (0-0.2); Basophils % (A) 1 %; Eosinophils # (A) 0.2 k/uL (0-0.7); Eosinophils % (A) 2 %; HCT 46.3 % (39.0-53.0); HGB 15.2 gm/dL (13.0-17.5); Lymphocytes # (A) 0.9 k/uL (1.0-4.8); Lymphocytes % (A) 10 %; MCH 28.6 pg (25.0-35.0); MCHC 32.7 g/dL (31.0-37.0); MCV 87.4 fL (80.0-100.0); Mean Platelet Volume 7.9; Monocytes # (A) 0.4 k/uL (0-1.0); Monocytes % (A) 4 %; Neutrophils # (A) 7.7 k/uL (1.3-7.7); Neutrophils % (A) 82 %; Platelet Count 383 k/uL (150-450); RDW 15.9 % (11.5-15.5); WBC 9.4 k/uL (3.8-10.6)
--- NOTE | 2023-06-28 14:32 | XR ---
EXAMINATION TYPE: XR chest 2V DATE OF EXAM: 06/28/2023 2:28 PM COMPARISON: Chest radiographs from 06/21/2023 TECHNIQUE: XR chest 2V Frontal and lateral views of the chest. CLINICAL INDICATION:Male, 52 years old with history of Chest Pain; FINDINGS: Lungs/Pleura: There is no evidence of pleural effusion, focal consolidation, or pneumothorax. Pulmonary vascularity: Unremarkable. Heart/mediastinum: Cardiomediastinal silhouette is prominent in size. Left atrial appendage occlusion devices present. Musculoskeletal: No acute osseous pathology. Medial fixation sternal hardware redemonstrated. IMPRESSION: No acute cardiopulmonary disease/process. No significant change from prior exam.
[2023-06-28 14:39] LABS: ALT 32 U/L (4-49); AST 26 U/L (17-59); African American GFR (CKD) 15 (>60 ml/min/1.73 sqM); Albumin 4.7 g/dL (3.5-5.0); Alkaline Phosphatase 131 U/L (38-126); Anion Gap 18 mmol/L; Blood Urea Nitrogen 87 mg/dL (9-20); Carbon Dioxide 23 mmol/L (22-30); Chloride 94 mmol/L (98-107); Glucose 325 mg/dL (74-99); Magnesium 1.7 mg/dL (1.6-2.3); Non-African American GFR(CKD) 13 (>60 ml/min/1.73 sqM); Potassium 4.5 mmol/L (3.5-5.1); Sodium 135 mmol/L (137-145); Total Bilirubin 1.7 mg/dL (0.2-1.3); Total Protein 8.2 g/dL (6.3-8.2)
[2023-06-28 14:41] LABS: Partial Thromboplastin Time 24.5 sec (22.0-30.0); Prothrombin Time 10.5 sec (9.0-12.0)
[2023-06-28 14:47] LABS: NT-Pro-B-Type Natriuretic Pept 285 pg/mL
[2023-06-28] MEDS ORDERED: ASPIRIN 81 MG PO STA (15:21)
[2023-06-28] MEDS ORDERED: NITROGLYCERIN OINT 1 INCH/GM PACKET TOPICAL STA (15:21)
[2023-06-28] MEDS ORDERED: HEPARIN SODIUM 1,000 UN/ML (10ML VL) IV ONE (15:26)
[2023-06-28] MEDS: HEPARIN SOD,PORK IN 0.45% NACL 25,000 UNIT in 0.45% NACL 1 250ML.BAG IV SCH (15:38)
[2023-06-28] MEDS ORDERED: NITROGLYCERIN SL TABS 0.4 MG TAB SUBLINGUAL PRN (15:51)
[2023-06-28] MEDS: SODIUM CHLORIDE 0.9% 1,000 ML IV SCH (17:30)
[2023-06-28] MEDS: NITROGLYCERIN OINT 1 INCH/GM PACKET TOPICAL SCH (18:43)
[2023-06-28] MEDS ORDERED: NON FORMULARY DRUG (Dulaglutide [Trulicity] 1.5 MG/0.5 ML Each) SQ SCH (19:00)
[2023-06-28] MEDS: SYMBICORT 160-4.5 MCG INHALER INHALATION SCH (19:57)
[2023-06-28] MEDS: ALBUTEROL NEBULIZED 2.5 MG/3 ML INHALATION PRN (19:57)
[2023-06-28 20:22] LABS: Glucose,Whole Blood 264 mg/dL (70-110)
[2023-06-28] MEDS: DULoxetine HCL 30 MG CAPSULE.DR PO SCH (20:23)
[2023-06-28] MEDS: COLCHICINE 0.6 MG EACH PO SCH (20:47)
[2023-06-28] MEDS ORDERED: INSULIN DETEMIR (LEVEMIR) 100 UNIT/ML SYR SQ SCH (21:00)
[2023-06-28] MEDS ORDERED: APIXABAN 5 MG TAB PO SCH (21:00)
[2023-06-28] MEDS ORDERED: SPIRONOLACTONE 25 MG TAB PO SCH (21:00)
[2023-06-28] MEDS ORDERED: metFORMIN 500 MG TAB PO SCH (21:00)
[2023-06-28] MEDS ORDERED: SACUBITRIL/VALSARTAN 49 MG-51 MG TABLET PO SCH (21:00)
[2023-06-28] MEDS ORDERED: HEPARIN SODIUM 1,000 UN/ML (10ML VL) IV PRN (23:43)
[2023-06-29] MEDS: SODIUM CHLORIDE 0.9% 1,000 ML IV SCH ×3 (00:45→17:03)
[2023-06-29] MEDS: NITROGLYCERIN OINT 1 INCH/GM PACKET TOPICAL SCH ×2 (00:47→06:22)
[2023-06-29 06:02] LABS: Glucose,Whole Blood 259 mg/dL (70-110)
[2023-06-29] MEDS: PANTOPRAZOLE 40 MG TABLET PO SCH (06:21)
[2023-06-29] MEDS: carvediloL 12.5 MG TAB PO SCH ×2 (06:22→17:02)
[2023-06-29] MEDS: SYMBICORT 160-4.5 MCG INHALER INHALATION SCH ×2 (08:04→22:06)
[2023-06-29] MEDS: CLOPIDOGREL 75 MG TAB PO SCH (08:20)
[2023-06-29] MEDS: allopurinoL 300 MG TAB PO SCH (08:20)
[2023-06-29] MEDS: AMIODARONE 200 MG TAB PO SCH (08:20)
[2023-06-29] MEDS: DULoxetine HCL 30 MG CAPSULE.DR PO SCH ×2 (08:20→19:59)
[2023-06-29] MEDS: ISOSORBIDE MONONITRATE ER 30 MG TAB.ER.24H PO SCH (08:20)
[2023-06-29] MEDS: NICOTINE 14MG/24HR PATCH TRANSDERM SCH (08:20)
[2023-06-29] MEDS: COLCHICINE 0.6 MG EACH PO SCH ×2 (08:21→20:00)
[2023-06-29] MEDS: FENOFIBRATE 54 MG TAB PO SCH (08:21)
[2023-06-29] MEDS ORDERED: ASPIRIN 325 MG TAB PO SCH (09:00)
[2023-06-29] MEDS ORDERED: DAPAGLIFLOZIN PROPANEDIOL 10 MG TABLET PO SCH (09:00)
[2023-06-29 09:28] LABS: African American GFR (CKD) 20 (>60 ml/min/1.73 sqM); Anion Gap 12 mmol/L; Blood Urea Nitrogen 83 mg/dL (9-20); Calcium 8.7 mg/dL (8.4-10.2); Carbon Dioxide 22 mmol/L (22-30); Chloride 102 mmol/L (98-107); Glucose 226 mg/dL (74-99); Magnesium 1.9 mg/dL (1.6-2.3); Non-African American GFR(CKD) 17 (>60 ml/min/1.73 sqM); Potassium 3.9 mmol/L (3.5-5.1); Sodium 136 mmol/L (137-145)
--- NOTE | 2023-06-29 09:36 | P.NPCON ---
History of Present Illness - Reason for Consult acute renal failure, chronic renal failure - History of Present Illness Reason for consultation: Acute kidney injury on chronic kidney disease History of present illness: Patient is a 52-year-old male seen in renal consultation for acute kidney injury on chronic kidney disease. Patient has chronic kidney disease stage IIIB secondary to diabetic kidney disease with baseline creatinine in the range of 1.5-2. Patient's creatinine this admission was 4.79 and is 3.76 today. Patient presented to the hospital via EMS due to chest pain. Patient describes the chest pain as pressure-like in the center of his chest and also pain in his jaw. Patient states he has history of coronary artery disease with 4 cardiac stents. Patient also states he was hospitalized recently for CHF and his swelling Improved with IV Lasix. Patient states he hasn't taken any medications at home since 06/14/2023 due to issue with bedbugs. He denies any edema. Has been void ing. No gross hematuria. Denies use of nonsteroidals. Patient has long- standing history of diabetes. No vomiting or diarrhea. Oral intake fair. Vital signs are stable. General: No acute distress. HEENT: Head exam is unremarkable. LUNGS: No audible rhonchi or wheezes. HEART: Rate and Rhythm are regular. ABDOMEN: Nontender. EXTREMITITES: No edema. Past Medical History Past Medical History: Atrial Fibrillation, Asthma, Coronary Artery Disease (CAD), Heart Failure, COPD, Diabetes Mellitus, GERD/Reflux, Hyperlipidemia, Hypertension, Myocardial Infarction ([place]), Renal Disease, Sleep Apnea/CPAP/BIPAP Additional Past Medical History / Comment(s): Pt recently admitted to [facility] on 12/29/21 with CHF. Other hx: NIDDM type II, CKD stage III, chronic anemia, CHLOE without device d/t insurance issues, mild COPD, [place] bilateral ears, gout. Last Myocardial Infarction Date:: 2008 History of Any Multi-Drug Resistant Organisms: MRSA Date of last positivie culture/infection: 10/2020 MDRO Source:: Right eye Past Surgical History: Adenoidectomy, Coronary Bypass/CABG, Heart Catheterization, Heart Catheterization With Stent, Tonsillectomy Additional Past Surgical History / Comment(s): cardiac stents x 5, quad bipass open heart 10/07/2021 Past Anesthesia/Blood Transfusion Reactions: Postoperative Nausea & Vomiting (PONV) Additional Past Anesthesia/Blood Transfusion Reaction / Comment(s): Has not had this reaction since he was 9 years old. Date of Last Stent Placement:: 2008 Past Psychological History: ADD/ADHD, Anxiety, Bipolar, Depression, PTSD Additional Psychological History / Comment(s): Pt resides at [facility], [address] [place] [address]. Smoking Status: Current every day smoker Past Alcohol Use History: None Reported Additional Past Alcohol Use History / Comment(s): Pt quit smoking before CABG. Past Drug Use History: None Reported - Past Family History Father Family Medical History: Cancer, Coronary Artery Disease (CAD), Myocardial Infarction (NM) Additional Family Medical History / Comment(s): at age 68 from mesothelioma, diagnosis of heart disease age of 60 Mother Family Medical History: Cancer, Coronary Artery Disease (CAD), Diabetes Mellitus, Liver Disease, Myocardial Infarction (NM) Additional Family Medical History / Comment(s): from liver cancer, diagnosed with heart disease before the age of 60 Medications and Allergies Home Medications Medication Instructions Recorded Confirmed Type Budesonide/Formoterol Fumarate 2 puff INHALATION RT-BID 11/28/21 06/28/23 History [Symbicort 160-4.5 Mcg Inhaler] Clopidogrel [Plavix] 75 mg PO DAILY 12/29/21 06/28/23 History Empagliflozin [Jardiance] 25 mg PO DAILY 05/23/22 06/28/23 History Amiodarone [Cordarone] 200 mg PO DAILY 07/05/22 06/28/23 History Spironolactone [Aldactone] 50 mg PO BID 07/05/22 06/28/23 History Albuterol Sulfate [Ventolin HFA] 1 puff INHALATION RT-Q6H PRN 06/21/23 06/28/23 History Apixaban [Eliquis] 5 mg PO BID 06/21/23 06/28/23 History Atorvastatin [Lipitor] 40 mg PO HS 06/21/23 06/28/23 History Colchicine 0.3 mg PO BID 06/21/23 06/28/23 History DULoxetine HCL [Cymbalta] 30 mg PO BID 06/21/23 06/28/23 History Dulaglutide [Trulicity] 1.5 mg SQ Q7D 06/21/23 06/28/23 History Fenofibrate [Lofibra] 54 mg PO DAILY 06/21/23 06/28/23 History Insulin Glargine,Hum.rec.anlog 25 units SQ HS 06/21/23 06/28/23 History [Lantus Solostar Pen] Isosorbide Mononitrate ER [Imdur] 30 mg PO DAILY 06/21/23 06/28/23 History Nicotine 14Mg/24Hr Patch [Habitrol] 1 patch TRANSDERM DAILY 06/21/23 06/28/23 History Pantoprazole [Protonix] 40 mg PO DAILY 06/21/23 06/28/23 History Sacubitril/Valsartan [Entresto 49 1 tab PO BID 06/21/23 06/28/23 History mg-51 mg Tablet] allopurinoL [Zyloprim] 300 mg PO DAILY 06/21/23 06/28/23 History carvediloL [Coreg] 12.5 mg PO BID 06/21/23 06/28/23 History metFORMIN HCL 1,000 mg PO BID 06/21/23 06/28/23 History Acetaminophen Tab [Tylenol] 650 mg PO Q6HR PRN tab 06/26/23 06/28/23 Rx Allergies Allergy/AdvReac Type Severity Reaction Status Date / Time Penicillins Allergy Anaphylaxis Verified 06/28/23 16:53 Sulfa (Sulfonamide Allergy Anaphylaxis Verified 06/28/23 16:53 Antibiotics) Physical Exam Vitals: Vital Signs Temp Pulse Pulse Resp BP BP Pulse Ox 06/29/23 07:57 97 06/29/23 04:00 90 18 143/72 97 06/29/23 00:00 98.2 F 92 18 129/73 96 06/28/23 23:52 98.0 F 06/28/23 23:51 93 19 156/91 98 06/28/23 22:42 90 19 06/28/23 20:10 95 06/28/23 19:58 96 06/28/23 19:49 89 19 116/81 98 06/28/23 18:43 88 20 121/82 94 L 06/28/23 17:30 89 18 115/80 97 06/28/23 14:58 97 18 117/77 95 06/28/23 13:37 98.2 F 84 16 90/62 93 L Intake and Output 06/28/23 06/29/23 06/29/23 22:59 06:59 14:59 Intake Total 82.167 Balance 82.167 Intake: Intake, IV Titration 82.167 Amount Heparin Sod,Pork in 0.45% 82.167 NaCl 25,000 unit In 0.45 % NaCl 1 250ml.bag @ 8. 319 UNITS/KG/HR 10 mls/hr IV .Q24H NAYELY Rx#: [id number] Other: # Voids 1 Weight 119.4 kg Results - Lab Results Most recent lab results Calcium 8.7 mg/dL (8.4-10.2) 06/29/23 08:23 Magnesium 1.9 mg/dL (1.6-2.3) 06/29/23 08:23 06/28/23 13:52 06/29/23 08:23 Assessment and Plan Plan: Assessment: 1. Acute kidney injury secondary to vasomotor nephropathy from hypovolemia. Creatinine 4.79 on admission and is 3.76 today. 2. Chronic kidney disease stage IIIB with baseline creatinine 1.5-2 secondary to diabetic kidney disease. 3. Chronic diastolic CHF. 4. Diabetes mellitus. 5. Acute coronary syndrome. Cardiology following. 6. Coronary artery disease status post multiple cardiac stents in the past. Plan: Decreased rate of normal saline to 75 mL an hour. Continue to hold all diuretics. Check UA. Check renal ultrasound. Avoid nephrotoxins. Continue to monitor renal function and urine output. Patient will need cardiac cath in the near future. Discussed with patient the risk of worsening renal function, potentially requiring renal replacement therapy, post-IV contrast exposure. He understands. Case also discussed with cardiology. Thank you for the consultation. I will continue to follow this patient daily during his hospital stay.
[2023-06-29 11:44] LABS: Chol/HDL Ratio 8.16 Ratio; LDL Cholesterol,Calculated 72.1 mg/dL (0.0-131.0)
[2023-06-29 11:56] LABS: Glucose,Whole Blood 323 mg/dL (70-110)
--- NOTE | 2023-06-29 12:35 | P.CRDCN ---
History of Present Illness History of present illness: HISTORY OF PRESENT ILLNESS: This is a 52-year-old male with a past medical history significant for coronary artery disease with 4 vessel CABG in 2021 (HONG to LAD, left radial to ramus intermedius, SVG to OM 2, SVG to PDA), paroxysmal atrial fibrillation, chronic kidney disease , hypertension, hyperlipidemia, diabetes and nicotine dependence. Patient follows in the office with Dr. Bello but has not been seen in the office since January 2022. We have been asked to see the patient in consultation for non- STEMI. Patient examined at the bedside. Patient states yesterday he was walking downtown when he began to have chest pain. He states the pain is in the middle of his chest. He reports feeling significantly short of breath as well. He reports feeling diaphoretic and lightheaded. He states this felt similar to his previous heart attack so he came to the emergency room for further evaluation. Patient was found to have elevated troponins and was started on IV heparin. He was also found to have acute renal failure. At the time of examination, patient denies any chest pain or pressure. He denies any shortness of breath. Vital signs are stable. Patient also reports he has not been taking any of his medications as prescribed. He states he had an issue with bedbugs recently and threw out everything in his house including his medications. * EKG reveals sinus mechanism with T wave inversions in high lateral leads * Chest xray negative for acute process * Laboratory data: W BC 9.4. Hemoglobin 15.2. Platelet count 383. Sodium 135. Potassium 4.5. BUN 87. Creatinine 4.79. Troponin 0.100. 1.320. 2.020 * Most recent echocardiogram obtained in May 2023 revealing ejection fraction 50-55%, severe concentric left ventricular hypertrophy, mild MR, mild TR REVIEW OF SYSTEMS: At the time of my exam: CONSTITUTIONAL: Denies fever or chills. HEENT: Denies blurred vision, vision changes, or eye pain. Denies hemoptysis CARDIOVASCULAR: Denies chest pain. Denies orthopnea. Denies PND. Denies palpitations RESPIRATORY: Denies shortness of breath. GASTROINTESTINAL: Denies abdominal pain. Denies nausea or vomiting. HEMATOLOGIC: Denies bleeding disorders. GENITOURINARY: Denies any blood in urine. SKIN: Denies pruitis. Denies rash. PHYSICAL EXAM: VITAL SIGNS: Reviewed. GENERAL: Well-developed in no acute distress. HEENT: Head is normocephalic. Pupils are equal, round. Sclerae anicteric. Mucous membranes of the mouth are moist. Neck supple. No JVD or thyromegaly LUNGS: Respirations even and unlabored. Lungs essentially clear to auscultation bilaterally. HEART: Regular rate and rhythm. S1 and S2 heard. ABDOMEN: Soft. Nondistended. Nontender. EXTREMITIES: Normal range of motion. No clubbing or cyanosis. Peripheral pulses intact. No lower extremity edema NEUROLOGIC: Awake and alert. Oriented x 3. ASSESSMENT: Non-STEMI Acute on chronic kidney disease Coronary artery disease with 4 vessel CABG, 2021 Paroxysmal atrial fibrillation Hypertension Hyperlipidemia Diabetes Nicotine dependence Medication noncompliance PLAN: Obtain 2-D echo to assess cardiac structure and function Resume home cardiac medications Continue dual antiplatelet therapy with aspirin and Plavix Continue IV heparin. Eliquis currently on hold Nephrology following for acute renal failure. Entresto and diuretics on hold due to DEBBIE. Patient will require cardiac catheterization when he is medically stable Further recommendations pending patient's course Nurse practitioner note has been reviewed by physician. Signing provider agrees with the documented findings, assessment, and plan of care. Past Medical History Past Medical History: Atrial Fibrillation, Asthma, Coronary Artery Disease (CAD), Heart Failure, COPD, Diabetes Mellitus, GERD/Reflux, Hyperlipidemia, Hypertension, Myocardial Infarction (MD), Renal Disease, Sleep Apnea/CPAP/BIPAP Additional Past Medical History / Comment(s): Pt recently admitted to [facility] on 12/29/21 with CHF. Other hx: NIDDM type II, CKD stage III, chronic anemia, CHLOE without device d/t insurance issues, mild COPD, [place] bilateral ears, gout. Last Myocardial Infarction Date:: 2008 History of Any Multi-Drug Resistant Organisms: MRSA Date of last positivie culture/infection: 10/2020 MDRO Source:: Right eye Past Surgical History: Adenoidectomy, Coronary Bypass/CABG, Heart Catheterization, Heart Catheterization With Stent, Tonsillectomy Additional Past Surgical History / Comment(s): cardiac stents x 5, quad bipass open heart 10/07/2021 Past Anesthesia/Blood Transfusion Reactions: Postoperative Nausea & Vomiting (PONV) Additional Past Anesthesia/Blood Transfusion Reaction / Comment(s): Has not had this reaction since he was 9 years old. Date of Last Stent Placement:: 2008 Past Psychological History: ADD/ADHD, Anxiety, Bipolar, Depression, PTSD Additional Psychological History / Comment(s): Pt resides at [facility], 1/2 [facility]. Smoking Status: Current every day smoker Past Alcohol Use History: None Reported Additional Past Alcohol Use History / Comment(s): Pt quit smoking before CABG. Past Drug Use History: None Reported - Past Family History Father Family Medical History: Cancer, Coronary Artery Disease (CAD), Myocardial Infarction (MD) Additional Family Medical History / Comment(s): at age 68 from mesothelioma, diagnosis of heart disease age of 60 Mother Family Medical History: Cancer, Coronary Artery Disease (CAD), Diabetes Mellitus, Liver Disease, Myocardial Infarction (MD) Additional Family Medical History / Comment(s): from liver cancer, diagnosed with heart disease before the age of 60 Medications and Allergies Home Medications Medication Instructions Recorded Confirmed Type Budesonide/Formoterol Fumarate 2 puff INHALATION RT-BID 11/28/21 06/28/23 History [Symbicort 160-4.5 Mcg Inhaler] Clopidogrel [Plavix] 75 mg PO DAILY 12/29/21 06/28/23 History Empagliflozin [Jardiance] 25 mg PO DAILY 05/23/22 06/28/23 History Amiodarone [Cordarone] 200 mg PO DAILY 07/05/22 06/28/23 History Spironolactone [Aldactone] 50 mg PO BID 07/05/22 06/28/23 History Albuterol Sulfate [Ventolin HFA] 1 puff INHALATION RT-Q6H PRN 06/21/23 06/28/23 History Apixaban [Eliquis] 5 mg PO BID 06/21/23 06/28/23 History Atorvastatin [Lipitor] 40 mg PO HS 06/21/23 06/28/23 History Colchicine 0.3 mg PO BID 06/21/23 06/28/23 History DULoxetine HCL [Cymbalta] 30 mg PO BID 06/21/23 06/28/23 History Dulaglutide [Trulicity] 1.5 mg SQ Q7D 06/21/23 06/28/23 History Fenofibrate [Lofibra] 54 mg PO DAILY 06/21/23 06/28/23 History Insulin Glargine,Hum.rec.anlog 25 units SQ HS 06/21/23 06/28/23 History [Lantus Solostar Pen] Isosorbide Mononitrate ER [Imdur] 30 mg PO DAILY 06/21/23 06/28/23 History Nicotine 14Mg/24Hr Patch [Habitrol] 1 patch TRANSDERM DAILY 06/21/23 06/28/23 History Pantoprazole [Protonix] 40 mg PO DAILY 06/21/23 06/28/23 History Sacubitril/Valsartan [Entresto 49 1 tab PO BID 06/21/23 06/28/23 History mg-51 mg Tablet] allopurinoL [Zyloprim] 300 mg PO DAILY 06/21/23 06/28/23 History carvediloL [Coreg] 12.5 mg PO BID 06/21/23 06/28/23 History metFORMIN HCL 1,000 mg PO BID 06/21/23 06/28/23 History Acetaminophen Tab [Tylenol] 650 mg PO Q6HR PRN tab 06/26/23 06/28/23 Rx Allergies Allergy/AdvReac Type Severity Reaction Status Date / Time Penicillins Allergy Anaphylaxis Verified 06/28/23 16:53 Sulfa (Sulfonamide Allergy Anaphylaxis Verified 06/28/23 16:53 Antibiotics) Physical Exam Vitals: Vital Signs Temp Pulse Pulse Resp BP BP Pulse Ox 06/29/23 07:57 97 06/29/23 04:00 90 18 143/72 97 06/29/23 00:00 98.2 F 92 18 129/73 96 06/28/23 23:52 98.0 F 06/28/23 23:51 93 19 156/91 98 06/28/23 22:42 90 19 06/28/23 20:10 95 06/28/23 19:58 96 06/28/23 19:49 89 19 116/81 98 06/28/23 18:43 88 20 121/82 94 L 06/28/23 17:30 89 18 115/80 97 06/28/23 14:58 97 18 117/77 95 06/28/23 13:37 98.2 F 84 16 90/62 93 L Intake and Output 06/28/23 06/29/23 06/29/23 22:59 06:59 14:59 Intake Total 82.167 Balance 82.167 Intake: Intake, IV Titration 82.167 Amount Heparin Sod,Pork in 0.45% 82.167 NaCl 25,000 unit In 0.45 % NaCl 1 250ml.bag @ 8. 319 UNITS/KG/HR 10 mls/hr IV .Q24H [facility] Rx#: [id number] Other: # Voids 1 Weight 119.4 kg Results 06/28/23 13:52 06/29/23 08:23 Cardiac Enzymes 06/28/23 06/28/23 06/28/23 Range/Units 13:52 13:52 17:35 AST 26 (17-59) U/L Troponin I 0.100 H* 1.320 H* (0.000-0.034) ng/mL 06/28/23 Range/Units 21:46 AST (17-59) U/L Troponin I 2.020 H* (0.000-0.034) ng/mL Coagulation 06/28/23 06/28/23 06/29/23 Range/Units 13:52 21:46 06:26 PT 10.5 (9.0-12.0) sec APTT 24.5 31.5 H 55.3 H (22.0-30.0) sec CBC 06/28/23 Range/Units 13:52 WBC 9.4 (3.8-10.6) k/uL RBC 5.30 (4.30-5.90) m/uL Hgb 15.2 (13.0-17.5) gm/dL Hct 46.3 (39.0-53.0) % Plt Count 383 (150-450) k/uL Comprehensive Metabolic Panel 06/28/23 Range/Units 13:52 Sodium 135 L (137-145) mmol/L Potassium 4.5 (3.5-5.1) mmol/L Chloride 94 L (98-107) mmol/L Carbon Dioxide 23 (22-30) mmol/L BUN 87 H (9-20) mg/dL Creatinine 4.79 H (0.66-1.25) mg/dL Glucose 325 H (74-99) mg/dL Calcium 10.0 (8.4-10.2) mg/dL AST 26 (17-59) U/L ALT 32 (4-49) U/L Alkaline Phosphatase 131 H (38-126) U/L Total Protein 8.2 (6.3-8.2) g/dL Albumin 4.7 (3.5-5.0) g/dL Current Medications Generic Name Dose Route Start Last Admin Trade Name Freq PRN Reason Stop Dose Admin Albuterol Sulfate 2.5 mg 06/28/23 18:49 06/28/23 19:57 Albuterol Nebulized 2.5 Mg/3 Ml INHALATION 2.5 mg RT-Q6H PRN Administration Wheezing Allopurinol 300 mg 06/29/23 09:00 06/29/23 08:20 Allopurinol 300 Mg Tab PO 300 mg DAILY [facility] Administration Amiodarone HCl 200 mg 06/29/23 09:00 06/29/23 08:20 Amiodarone 200 Mg Tab PO 200 mg DAILY [facility] Administration Aspirin 325 mg 06/29/23 09:00 06/29/23 08:20 Aspirin 325 Mg Tab PO 325 mg DAILY [facility] Administration Budesonide/Formoterol Fumarate 2 puff 06/28/23 20:00 06/29/23 08:04 Symbicort 160-4.5 Mcg Inhaler INHALATION Not Given RT-BID [facility] Carvedilol 12.5 mg 06/29/23 07:30 06/29/23 06:22 Carvedilol 12.5 Mg Tab PO 12.5 mg BID-W/MEALS [facility] Administration Clopidogrel Bisulfate 75 mg 06/29/23 09:00 06/29/23 08:20 Clopidogrel 75 Mg Tab PO 75 mg DAILY [facility] Administration Colchicine 0.3 mg 06/28/23 21:00 06/29/23 08:21 Colchicine 0.6 Mg Each PO 0.3 mg BID [facility] Administration Duloxetine HCl 30 mg 06/28/23 21:00 06/29/23 08:20 Duloxetine Hcl 30 Mg Capsule.Dr PO 30 mg BID [facility] Administration Fenofibrate 54 mg 06/29/23 09:00 06/29/23 08:21 Fenofibrate 54 Mg Tab PO 54 mg DAILY [facility] Administration Heparin Sodium (Porcine) 0 unit 06/28/23 23:43 06/28/23 23:48 Heparin Sodium 1,000 Un/Ml (10ml Vl) IV 6,000 unit Q6HR PRN Administration Low PTT Protocol Heparin Sodium/Sodium Chloride 250 mls @ 10 mls/hr 06/28/23 15:30 06/28/23 23:51 25,000 unit/ Sodium Chloride IV 10.82 units/kg/hr .Q24H [facility] 13 mls/hr Titration Protocol 8.319 UNITS/KG/HR Sodium Chloride 1,000 mls @ 130 mls/hr 06/28/23 16:30 06/29/23 08:19 Saline 0.9% IV 130 mls/hr .Q7H42M [facility] Administration Insulin Detemir 25 unit 06/28/23 21:00 06/28/23 20:22 Insulin Detemir (Levemir) 100 Unit/Ml Syr SQ 25 unit HS [facility] Administration Isosorbide Mononitrate 30 mg 06/29/23 09:00 06/29/23 08:20 Isosorbide Mononitrate Er 30 Mg Tab.Er.24h PO 30 mg DAILY [facility] Administration Nicotine 1 patch 06/29/23 09:00 06/29/23 08:20 Nicotine 14mg/24hr Patch TRANSDERM 1 patch DAILY [facility] Administration Nitroglycerin 0.4 mg 06/28/23 15:51 Nitroglycerin Sl Tabs 0.4 Mg Tab SUBLINGUAL Q5M PRN Chest Pain Nitroglycerin 1 inch 06/28/23 18:00 06/29/23 06:22 Nitroglycerin Oint 1 Inch/Gm Packet TOPICAL Not Given Q6HR [facility] Non-Formulary Medication 1.5 mg 06/28/23 19:00 06/28/23 20:08 Dulaglutide [Trulicity] SQ Not Given Q7D [facility] Pantoprazole Sodium 40 mg 06/29/23 07:30 06/29/23 06:21 Pantoprazole 40 Mg Tablet PO 40 mg AC-BRKFST [facility] Administration Intake and Output 06/28/23 06/29/23 06/29/23 22:59 06:59 14:59 Intake Total 82.167 Balance 82.167 Intake: Intake, IV Titration 82.167 Amount Heparin Sod,Pork in 0.45% 82.167 NaCl 25,000 unit In 0.45 % NaCl 1 250ml.bag @ 8. 319 UNITS/KG/HR 10 mls/hr IV .Q24H [facility] Rx#: [id number] Other: # Voids 1 Weight 119.4 kg 06/28/23 13:52 06/28/23 13:52
[2023-06-29] MEDS: HEPARIN SOD,PORK IN 0.45% NACL 25,000 UNIT in 0.45% NACL 1 250ML.BAG IV SCH (13:29)
[2023-06-29 14:07] LABS: Appearance,Urine Clear (Clear); Bilirubin,Urine Negative (Negative); Blood,Urine Negative (Negative); Color,Urine Colorless; Glucose,Urine (UA) 4+ (Negative); Ketones,Urine Negative (Negative); Leukocyte Esterase,Urine Negative (Negative); Nitrite,Urine Negative (Negative); PH, Urine 5.5 (5.0-8.0); Protein,Urine Negative (Negative); Specific Gravity,Urine 1.014 (1.001-1.035); Urobilinogen,Urine <2.0 mg/dL (<2.0)
--- NOTE | 2023-06-29 15:57 | US ---
EXAMINATION TYPE: US kidneys/renal and bladder DATE OF EXAM: 06/29/2023 COMPARISON: NONE CLINICAL INDICATION: Male, 52 years old with history of DEBBIE; CKD Stage 3B, no symptoms EXAM MEASUREMENTS: Right Kidney: 7.7 x 4.7 x 5.2 cm Left Kidney: 9.6 x 5.4 x 5.2 cm Right Kidney: Slightly smaller in size than the left but bowel gas does limit detailed assessment joe ecially of the lower pole. No obvious hydronephrosis. Left Kidney: No hydronephrosis or masses seen Bladder: not distended IMPRESSION: 1. Limited detailed assessment of the right kidney. No hydronephrosis seen on either side. Smaller si ze of the right kidney suggesting underlying chronic medical renal disease. 2. Unable to adequately assess the bladder due to nondistention.
[2023-06-29 16:43] LABS: Glucose,Whole Blood 357 mg/dL (70-110)
--- NOTE | 2023-06-29 17:44 | CA ---
Transthoracic Echo Report Name: Balwinder Collado Age: 52 Gender: M : 1970 Exam Date: 06/29/2023 12:01 Exam Location: [facility] Ht (in): 70 Wt (lb): 263 Ordering Physician: Stephanie Cline Attending/Referring Phys: [id number], Marlyn Underwriting Consultant Adalberto Maurer Procedure CPT: Indications: nstemi Cardiac Hx: Technical Quality: Fair Contrast 1: Total Dose (mL): Contrast 2: Total Dose (mL): MEASUREMENTS (Male / Female) Normal Values 2D ECHO LV Diastolic Diameter PLAX 4.9 cm 4.2 - 5.9 / 3.9 - 5.3 cm LV Systolic Diameter PLAX 3.3 cm IVS Diastolic Thickness 1.3 cm 0.6 - 1.0 / 0.6 - 0.9 cm LVPW Diastolic Thickness 1.4 cm 0.6 - 1.0 / 0.6 - 0.9 cm LV Relative Wall Thickness 0.6 RV Internal Dim ED PLAX 3.2 cm LVOT Diameter 2.1 cm Aortic Root Diameter 3.4 cm LA Systolic Diameter LX 2.6 cm 3.0 - 4.0 / 2.7 - 3.8 cm LV Diastolic Volume MOD BP 78.0 cm??? 67 - 155 / 56 - 104 cm??? LV Systolic Volume MOD BP 38.6 cm??? - 58 / 19 - 49 cm??? LV Ejection Fraction MOD BP 50.6 % >= 55 % LV Cardiac Index MOD BP 1148.6 cm???/min???m??? LV Diastolic Volume MOD 4C 89.3 cm??? LV Systolic Volume MOD 4C 40.9 cm??? LV Ejection Fraction MOD 4C 54.2 % LV Cardiac Index MOD 4C 1408.2 cm???/min???m??? LV Diastolic Length 4C 7.7 cm LV Systolic Length 4C 6.7 cm LV Diastolic Volume MOD 2C 68.1 cm??? LV Systolic Volume MOD 2C 35.6 cm??? LV Ejection Fraction MOD 2C 47.8 % LV Cardiac Index MOD 2C 946.6 cm???/min???m??? LV Diastolic Length 2C 7.7 cm LV Systolic Length 2C 6.9 cm LA Volume 46.3 cm??? 18 - 58 / 22 - 52 cm??? LA Volume Index 18.7 cm???/m??? 16 - 28 cm???/m??? DOPPLER AV Peak Velocity 217.3 cm/s AV Peak Gradient 18.9 mmHg LVOT Peak Velocity 157.7 cm/s LVOT Peak Gradient 9.9 mmHg LVOT Velocity Time Integral 28.8 cm LVOT Stroke Volume 100.5 cm??? LVOT Stroke Volume Index 42.9 ml/m??? LVOT Cardiac Index 2923.0 cm???/min???m??? AV Area Cont Eq pk 2.5 cm??? MV Peak Velocity 82.4 cm/s MV Peak Gradient 2.7 mmHg MV Mean Velocity 45.6 cm/s MV Mean Gradient 1.0 mmHg MV Velocity Time Integral 32.4 cm Mitral E Point Velocity 83.8 cm/s Mitral A Point Velocity 78.4 cm/s Mitral E to A Ratio 1.1 MV Deceleration Time 215.4 ms MV E' Velocity 6.5 cm/s Mitral E to MV E' Ratio 12.9 TR Peak Velocity 163.5 cm/s TR Peak Gradient 10.7 mmHg Right Ventricular Systolic Press 15.7 mmHg PV Peak Velocity 149.3 cm/s PV Peak Gradient 8.9 mmHg FINDINGS Left Ventricle Normal LV size. Mild concentric LVH. Left ventricular ejection fraction is estimated at 50-55 %. Right Ventricle Normal right ventricular size. Right Atrium Normal right atrial size. Left Atrium Normal left atrial size. LA volume index= 19.7ml/m2 Mitral Valve Structurally normal mitral valve. Aortic Valve Trileaflet aortic valve. Tricuspid Valve Structurally normal tricuspid valve. Trace TR. Pulmonic Valve Pulmonic valve not well visualized. Moderate PI. Pericardium Not well visualized. Aorta Normal size aortic root. CONCLUSIONS Normal LV function Previewed by: Dr. Osito Meyer MD (Electronically Signed) Final Date: 29 June 2023 17:44
--- NOTE | 2023-06-29 17:50 | HP ---
HISTORY AND PHYSICAL CHIEF COMPLAINT: Chest pain and shortness of breath. HISTORY OF PRESENT ILLNESS: This is another admission for this 52-year-old white male with chronic coronary artery disease, angina, and congestive heart failure with diabetes. We just discharged, went home, and came back with chest pain with elevated troponins. He had no syncope, and he was short of breath and slightly diaphoretic. REVIEW OF SYSTEMS: Otherwise, unremarkable. Past medical history, family history, and personal and social histories are otherwise unchanged. He is allergic to sulfa and penicillin. It is not entirely clear if he was taking all the medications he was discharged on. He may not have had time to get them. Remainder of his history is unremarkable and unchanged. PHYSICAL EXAMINATION: VITAL SIGNS: Blood pressure is 106/84 with a pulse of 75, respirations of 38, and he is afebrile. GENERAL: He appears to be overweight, pale, and slightly short of breath. HEAD, EARS, EYES, NOSE, MOUTH, AND THROAT: Normal. CHEST: Demonstrates scattered rales. HEART: Demonstrates sinus rhythm, and there are no murmurs or extra sounds. ABDOMEN: Protuberant, soft, and nontender. There are no masses or visceromegaly. EXTREMITIES: Normal except for slight edema. NEUROLOGIC: He is intact. DIAGNOSES: He is admitted to the hospital with diagnoses: 1. Chest pain. 2. Coronary artery disease. 3. Atherosclerotic cardiomyopathy. 4. Yvjox-ft-ikixqzh congestive heart failure. 5. Poorly-controlled diabetes mellitus. PLAN: 1. Bedrest. 2. IV fluids. 3. Cardiology consult. MMODL / IJN: [id number] /
--- NOTE | 2023-06-29 18:11 | PN ---
PROGRESS NOTE DATE OF SERVICE: 06/29/2023 CHIEF COMPLAINT: Chest pain and heart failure. HISTORY OF PRESENT ILLNESS: This gentleman has been seen by Cardiology, and after he is stable will be going for cardiac catheterization. REVIEW OF SYSTEMS: He has had no further chest pain, and he is not short of breath. PHYSICAL EXAMINATION: CHEST: Quite clear. CARDIAC: Normal. ABDOMEN: Protuberant and soft. IMPRESSION: 1. [id number]-[id number] myocardial infarction. 2. Coronary artery disease. 3. Wuvzs-cy-pcxuque heart failure. 4. Diabetes. PLAN: Stabilize before cardiac catheterization. MMODL / IJN: [id number] /
[2023-06-29 20:06] LABS: Glucose,Whole Blood 311 mg/dL (70-110)
[2023-06-29] MEDS: ALBUTEROL NEBULIZED 2.5 MG/3 ML INHALATION PRN (22:06)
[2023-06-30 05:52] LABS: Glucose,Whole Blood 232 mg/dL (70-110)
[2023-06-30] MEDS: carvediloL 12.5 MG TAB PO SCH ×2 (06:25→17:43)
[2023-06-30] MEDS: PANTOPRAZOLE 40 MG TABLET PO SCH (06:25)
[2023-06-30] MEDS: SODIUM CHLORIDE 0.9% 1,000 ML IV SCH ×2 (06:25→17:43)
[2023-06-30] MEDS: INSULIN DETEMIR (LEVEMIR) 100 UNIT/ML SYR SQ SCH (06:26)
[2023-06-30] MEDS: HEPARIN SOD,PORK IN 0.45% NACL 25,000 UNIT in 0.45% NACL 1 250ML.BAG IV SCH ×2 (06:40→23:12)
[2023-06-30 07:58] LABS: African American GFR (CKD) 29 (>60 ml/min/1.73 sqM); Anion Gap 7 mmol/L; Blood Urea Nitrogen 61 mg/dL (9-20); Calcium 8.5 mg/dL (8.4-10.2); Carbon Dioxide 20 mmol/L (22-30); Chloride 107 mmol/L (98-107); Glucose 202 mg/dL (74-99); Magnesium 1.6 mg/dL (1.6-2.3); Non-African American GFR(CKD) 25 (>60 ml/min/1.73 sqM); Potassium 4.6 mmol/L (3.5-5.1); Sodium 134 mmol/L (137-145)
[2023-06-30] MEDS: NICOTINE 14MG/24HR PATCH TRANSDERM SCH (09:14)
[2023-06-30] MEDS: FENOFIBRATE 54 MG TAB PO SCH (09:14)
[2023-06-30] MEDS: AMIODARONE 200 MG TAB PO SCH (09:15)
[2023-06-30] MEDS: COLCHICINE 0.6 MG EACH PO SCH ×2 (09:15→19:37)
[2023-06-30] MEDS: ISOSORBIDE MONONITRATE ER 30 MG TAB.ER.24H PO SCH (09:15)
[2023-06-30] MEDS: ASPIRIN 81 MG PO SCH (09:15)
[2023-06-30] MEDS: allopurinoL 300 MG TAB PO SCH (09:15)
[2023-06-30] MEDS: DULoxetine HCL 30 MG CAPSULE.DR PO SCH ×2 (09:15→19:37)
[2023-06-30] MEDS: CLOPIDOGREL 75 MG TAB PO SCH (09:15)
[2023-06-30] MEDS: SYMBICORT 160-4.5 MCG INHALER INHALATION SCH ×2 (09:44→20:15)
--- NOTE | 2023-06-30 10:43 | P.PN ---
Subjective Patient is seen in follow-up for acute kidney injury on chronic kidney disease. Renal function improving. On IV fluids. Admits to good urine output. Vital signs are stable. General: No acute distress. HEENT: Head exam is unremarkable. LUNGS: No audible rhonchi or wheezes. HEART: Rate and Rhythm are regular. ABDOMEN: Nontender. EXTREMITITES: No edema. Objective - Vital Signs Vital signs: Vital Signs Temp 97.4 F L 06/30/23 09:00 Pulse 60 06/30/23 09:00 Resp 16 06/30/23 09:00 BP 107/68 06/30/23 09:00 Pulse Ox 96 06/30/23 09:00 FiO2 Intake & Output 06/29/23 06/30/23 06/30/23 18:59 06:59 18:59 Intake Total 887.833 223.383 Output Total 250 Balance 637.833 223.383 Intake: Intake, IV Titration 167.833 223.383 Amount Heparin Sod,Pork in 0.45% 167.833 223.383 NaCl 25,000 unit In 0.45 % NaCl 1 250ml.bag @ 8. 319 UNITS/KG/HR 10 mls/hr IV .Q24H [facility] Rx#: [id number] Oral 720 Output: Urine 250 Other: # Voids 1 1 - Labs CBC & Chem 7: 06/28/23 13:52 06/30/23 06:41 Labs: Abnormal Lab Results - Last 24 Hours (Table) 06/29/23 06/29/23 06/29/23 Range/Units 06:26 11:55 13:50 APTT (22.0-30.0) sec Sodium (137-145) mmol/L Carbon Dioxide (22-30) mmol/L BUN (9-20) mg/dL Creatinine (0.66-1.25) mg/dL Glucose (74-99) mg/dL POC Glucose (mg/dL) 323 H (70-110) mg/dL Triglycerides 381.00 H (0.00-149.00) mg/dL VLDL Cholesterol, Calc 76.20 H (5.00-40.00) mg/dL HDL Cholesterol 20.70 L (40.00-60.00) mg/dL Urine Glucose (UA) 4+ H (Negative) 06/29/23 06/29/23 06/30/23 Range/Units 16:42 20:04 05:50 APTT (22.0-30.0) sec Sodium (137-145) mmol/L Carbon Dioxide (22-30) mmol/L BUN (9-20) mg/dL Creatinine (0.66-1.25) mg/dL Glucose (74-99) mg/dL POC Glucose (mg/dL) 357 H 311 H 232 H (70-110) mg/dL Triglycerides (0.00-149.00) mg/dL VLDL Cholesterol, Calc (5.00-40.00) mg/dL HDL Cholesterol (40.00-60.00) mg/dL Urine Glucose (UA) (Negative) 06/30/23 06/30/23 Range/Units 06:41 06:41 APTT 46.4 H (22.0-30.0) sec Sodium 134 L (137-145) mmol/L Carbon Dioxide 20 L (22-30) mmol/L BUN 61 H (9-20) mg/dL Creatinine 2.75 H (0.66-1.25) mg/dL Glucose 202 H (74-99) mg/dL POC Glucose (mg/dL) (70-110) mg/dL Triglycerides (0.00-149.00) mg/dL VLDL Cholesterol, Calc (5.00-40.00) mg/dL HDL Cholesterol (40.00-60.00) mg/dL Urine Glucose (UA) (Negative) Assessment and Plan Plan: Assessment: 1. Acute kidney injury secondary to vasomotor nephropathy from hypovolemia. Creatinine 4.79 on admission and is 2.75 today. UA benign. No hydronephrosis noted on kidney ultrasound. Right kidney atrophic. 2. Chronic kidney disease stage IIIB with baseline creatinine 1.5-2 secondary to diabetic kidney disease. 3. Chronic diastolic CHF. 4. Diabetes mellitus. 5. Acute coronary syndrome. Cardiology following. 6. Coronary artery disease status post multiple cardiac stents in the past. Plan: Maintain normal saline. Continue to hold diuretics. Avoid nephrotoxins. Continue to monitor renal function and urine output. Patient will need cardiac cath in the near future, possibly tomorrow. Discussed with patient the risk of worsening renal function, potentially requiring renal replacement therapy, post-IV contrast exposure. He understands.
--- NOTE | 2023-06-30 11:20 | P.PN ---
Subjective HISTORY OF PRESENT ILLNESS: This is a 52-year-old male with a past medical history significant for coronary artery disease with 4 vessel CABG in 2021 (HONG to LAD, left radial to ramus intermedius, SVG to OM 2, SVG to PDA), paroxysmal atrial fibrillation, chronic kidney disease , hypertension, hyperlipidemia, diabetes and nicotine dependence. Patient follows in the office with Dr. Bello but has not been seen in the office since January 2022. We have been asked to see the patient in consultation for non- STEMI. Patient examined at the bedside. Patient states yesterday he was walking downtown when he began to have chest pain. He states the pain is in the middle of his chest. He reports feeling significantly short of breath as well. He reports feeling diaphoretic and lightheaded. He states this felt similar to his previous heart attack so he came to the emergency room for further evaluation. Patient was found to have elevated troponins and was started on IV heparin. He was also found to have acute renal failure. At the time of examination, patient denies any chest pain or pressure. He denies any shortness of breath. Vital signs are stable. Patient also reports he has not been taking any of his medications as prescribed. He states he had an issue with bedbugs recently and threw out everything in his house including his medications. * EKG reveals sinus mechanism with T wave inversions in high lateral leads * Chest xray negative for acute process * Laboratory data: W BC 9.4. Hemoglobin 15.2. Platelet count 383. Sodium 135. Potassium 4.5. BUN 87. Creatinine 4.79. Troponin 0.100. 1.320. 2.020 * Most recent echocardiogram obtained in May 2023 revealing ejection fraction 50-55%, severe concentric left ventricular hypertrophy, mild MR, mild TR 06/30/2023 Patient examined this morning at the bedside. Patient denies any further episodes of chest pain or pressure. He denies shortness of breath. He remains on IV heparin. Nephrology is following for acute kidney injury. Creatinine has improved today to 2.75. Echocardiogram completed revealing ejection fraction of 50-55%, with trace TR. PHYSICAL EXAM: VITAL SIGNS: Reviewed. GENERAL: Well-developed in no acute distress. HEENT: Head is normocephalic. Pupils are equal, round. Sclerae anicteric. Mucous membranes of the mouth are moist. Neck supple. No JVD or thyromegaly LUNGS: Respirations even and unlabored. Lungs essentially clear to auscultation bilaterally. HEART: Regular rate and rhythm. S1 and S2 heard. ABDOMEN: Soft. Nondistended. Nontender. EXTREMITIES: Normal range of motion. No clubbing or cyanosis. Peripheral pulses intact. No lower extremity edema NEUROLOGIC: Awake and alert. Oriented x 3. ASSESSMENT: Non-STEMI Acute on chronic kidney disease Coronary artery disease with 4 vessel CABG, 2021 Paroxysmal atrial fibrillation Hypertension Hyperlipidemia Diabetes Nicotine dependence Medication noncompliance PLAN: Continue dual antiplatelet therapy with aspirin and Plavix Add Lipitor 40mg at HS Continue IV heparin. Eliquis currently on hold Nephrology following for acute renal failure. Entresto and diuretics on hold due to DEBBIE. Patient will require cardiac catheterization when he is medically stable and kidney function improves Further recommendations pending patient's course Nurse practitioner note has been reviewed by physician. Signing provider agrees with the documented findings, assessment, and plan of care. Objective - Vital Signs Vital signs: Vital Signs Temp 97.4 F L 06/30/23 09:00 Pulse 60 06/30/23 09:00 Resp 16 06/30/23 09:00 BP 107/68 06/30/23 09:00 Pulse Ox 96 06/30/23 09:00 FiO2 Intake & Output 06/29/23 06/30/23 06/30/23 18:59 06:59 18:59 Intake Total 887.833 223.383 Output Total 250 Balance 637.833 223.383 Intake: Intake, IV Titration 167.833 223.383 Amount Heparin Sod,Pork in 0.45% 167.833 223.383 NaCl 25,000 unit In 0.45 % NaCl 1 250ml.bag @ 8. 319 UNITS/KG/HR 10 mls/hr IV .Q24H [facility] Rx#: [id number] Oral 720 Output: Urine 250 Other: # Voids 1 1 - Labs CBC & Chem 7: 06/28/23 13:52 06/30/23 06:41 Labs: Abnormal Lab Results - Last 24 Hours (Table) 06/29/23 06/29/23 06/29/23 Range/Units 06:26 11:55 13:50 APTT (22.0-30.0) sec Sodium (137-145) mmol/L Carbon Dioxide (22-30) mmol/L BUN (9-20) mg/dL Creatinine (0.66-1.25) mg/dL Glucose (74-99) mg/dL POC Glucose (mg/dL) 323 H (70-110) mg/dL Triglycerides 381.00 H (0.00-149.00) mg/dL VLDL Cholesterol, Calc 76.20 H (5.00-40.00) mg/dL HDL Cholesterol 20.70 L (40.00-60.00) mg/dL Urine Glucose (UA) 4+ H (Negative) 06/29/23 06/29/23 06/30/23 Range/Units 16:42 20:04 05:50 APTT (22.0-30.0) sec Sodium (137-145) mmol/L Carbon Dioxide (22-30) mmol/L BUN (9-20) mg/dL Creatinine (0.66-1.25) mg/dL Glucose (74-99) mg/dL POC Glucose (mg/dL) 357 H 311 H 232 H (70-110) mg/dL Triglycerides (0.00-149.00) mg/dL VLDL Cholesterol, Calc (5.00-40.00) mg/dL HDL Cholesterol (40.00-60.00) mg/dL Urine Glucose (UA) (Negative) 06/30/23 06/30/23 Range/Units 06:41 06:41 APTT 46.4 H (22.0-30.0) sec Sodium 134 L (137-145) mmol/L Carbon Dioxide 20 L (22-30) mmol/L BUN 61 H (9-20) mg/dL Creatinine 2.75 H (0.66-1.25) mg/dL Glucose 202 H (74-99) mg/dL POC Glucose (mg/dL) (70-110) mg/dL Triglycerides (0.00-149.00) mg/dL VLDL Cholesterol, Calc (5.00-40.00) mg/dL HDL Cholesterol (40.00-60.00) mg/dL Urine Glucose (UA) (Negative)
[2023-06-30] MEDS: MAGNESIUM SULFATE-D5W PMX 1 GM in DEXTROSE/WATER 1 100ML.BAG IVPB SCH ×2 (11:38→15:24)
[2023-06-30 11:48] LABS: Glucose,Whole Blood 404 mg/dL (70-110)
--- NOTE | 2023-06-30 15:29 | CDI ---
Documentation Clarification Form Date: 06/30/2023 03:19:33 PM From: Silke Madison RN CCDS Phone: [phone] Admit Date: 06/28/2023 03:51:00 PM Patient Name: Balwinder Collado Visit Number: [id number] Discharge Date: ATTENTION: The Clinical Documentation Specialists (CDI) and [facility] Coding Staff appreciate your assistance in clarifying documentation. Please respond to the clarification below the line at the bottom and electronically sign. The CDI & [facility] Coding staff will review the response and follow-up if needed. Please note: Queries are made part of the Legal Health Record. If you have any questions, please contact the author of this message via ITS. Dr. Edwin Hansen Acute on chronic congestive heart failure is documented 06/29, H&P, which may lack sufficient clinical evidence/support in the medical record. Additional clarification is requested. History/Risk Factors: 52-year-old male presented to the ED via EMS for chest pain, described as pressure like in the center of the chest and pain in his jaw. Medical history: Coronary artery disease with 4 cardiac stents. Hospitalized recently with CHF exacerbation. Clinical Indicators: 06/28, VSS: B/P 90/62; HR 84; Temp 98.2 F Oral; RR 16; SpO2 93% room air 06/28, BNP: 285 06/28, CXR: No acute cardiopulmonary disease / process. 06/29, ECHO: EF 50-55% Normal LV function. Treatment: 06/28 Aldactone 50mg po x 1; 06/29 Coreg 12.5mg PO BID W/Meals [facility]; Please clarify if Acute on chronic congestive heart failure is a valid diagnosis? [ ] Yes, Acute on chronic congestive heart failure is present as evidence by (additional clinical support): [ ] No, Acute congestive heart failure is ruled out [ ] Other (please specify diagnosis) [ ] Unable to determine (Template Last Revised: November 2020) MTDD
[2023-06-30 17:07] LABS: Glucose,Whole Blood 235 mg/dL (70-110)
[2023-06-30] MEDS: ATORVASTATIN 40 MG TAB PO SCH (19:37)
[2023-06-30 19:57] LABS: Glucose,Whole Blood 284 mg/dL (70-110)
--- NOTE | 2023-06-30 23:41 | PN ---
PROGRESS NOTE CHIEF COMPLAINT: Chest pain and heart failure. HISTORY OF PRESENT ILLNESS: This gentleman is doing fairly well. He is having no chest pain. He is down around stage 4 to 5 CKD. His GFR has come up slightly since yesterday. He feels fine. He is not nauseated. He is having no chest pain. Cardiac cath will be postponed pending improvement in his renal function. PHYSICAL EXAMINATION: CHEST: Clear. CARDIAC: Normal. ABDOMEN: Soft and protuberant. IMPRESSION: 1. Non-ST segment elevation myocardial infarction. 2. Coronary artery disease. 3. Congestive heart failure. 4. Chronic kidney disease. PLAN: Continue to follow kidney function while managing his heart failure. Blood sugars are in good control. MMODL / IJN: [id number] /
[2023-07-01 05:49] LABS: Glucose,Whole Blood 289 mg/dL (70-110)
[2023-07-01] MEDS: INSULIN DETEMIR (LEVEMIR) 100 UNIT/ML SYR SQ SCH (06:01)
[2023-07-01] MEDS: PANTOPRAZOLE 40 MG TABLET PO SCH (06:01)
[2023-07-01] MEDS: carvediloL 12.5 MG TAB PO SCH ×2 (06:02→17:08)
[2023-07-01 08:30] LABS: African American GFR (CKD) 40 (>60 ml/min/1.73 sqM); Anion Gap 6 mmol/L; Blood Urea Nitrogen 43 mg/dL (9-20); Calcium 8.6 mg/dL (8.4-10.2); Carbon Dioxide 21 mmol/L (22-30); Chloride 108 mmol/L (98-107); Glucose 239 mg/dL (74-99); Magnesium 1.7 mg/dL (1.6-2.3); Non-African American GFR(CKD) 35 (>60 ml/min/1.73 sqM); Potassium 4.8 mmol/L (3.5-5.1); Sodium 135 mmol/L (137-145)
[2023-07-01] MEDS: NICOTINE 14MG/24HR PATCH TRANSDERM SCH (08:38)
[2023-07-01] MEDS: DULoxetine HCL 30 MG CAPSULE.DR PO SCH ×2 (08:39→21:20)
[2023-07-01] MEDS: allopurinoL 300 MG TAB PO SCH (08:39)
[2023-07-01] MEDS: ISOSORBIDE MONONITRATE ER 30 MG TAB.ER.24H PO SCH (08:39)
[2023-07-01] MEDS: ASPIRIN 81 MG PO SCH (08:39)
[2023-07-01] MEDS: CLOPIDOGREL 75 MG TAB PO SCH (08:40)
[2023-07-01] MEDS: AMIODARONE 200 MG TAB PO SCH (08:40)
[2023-07-01] MEDS: FENOFIBRATE 54 MG TAB PO SCH (08:40)
[2023-07-01] MEDS: COLCHICINE 0.6 MG EACH PO SCH ×2 (08:41→21:20)
[2023-07-01] MEDS: SYMBICORT 160-4.5 MCG INHALER INHALATION SCH ×2 (08:53→21:12)
[2023-07-01] MEDS: SODIUM CHLORIDE 0.9% 1,000 ML IV SCH (09:08)
--- NOTE | 2023-07-01 09:28 | CDI ---
Documentation Clarification Form Date: 07/01/2023 08:28:53 AM From: Silke Madison RN CCDS Phone: [phone] Admit Date: 06/28/2023 03:51:00 PM Patient Name: Balwinder Collado Visit Number: [id number] Discharge Date: ATTENTION: The Clinical Documentation Specialists (CDI) and [facility] Coding Staff appreciate your assistance in clarifying documentation. Please respond to the clarification below the line at the bottom and electronically sign. The CDI & [facility] Coding staff will review the response and follow-up if needed. Please note: Queries are made part of the Legal Health Record. If you have any questions, please contact the author of this message via ITS. Dr. Edwin Hansen Conflicting documentation has been found in the medical record. As attending physician, please provide clarification. Chronic kidney disease stage IIIB with baseline creatinine 1.5 2, Nephrology consult, 06/29.] Stage 4 to 5 CKD, Medicine note, 06/30. History/Risk Factors: 52-year-old male presented with chest pain one hour before arrival recent discharge from hospital for CHF. Medical History: CHF, CKD and CAD. ED note, 06/28. Clinical Indicators: Historical values: 07/12/2022 BUN 41 CR 2.09 GFR 35 06/14 BUN 41 CR 1.79 GFR 43 Current values: 06/28 BUN 87 CR 4.79 GFR 13 06/29 BUN 83 CR 3.76 GFR 17 06/30 BUN 61 CR 2.75 GFR 25 07/01 BUN 43 CR 2.10 GFR 35 Treatment: Decreased normal saline 75ml/hr; Holding all diuretics, Avoid nephrotoxins. Monitor renal function and urine output. Renal ultrasound Please clarify which diagnosis is most appropriate: [ ] CKD stage 3b [ ] CKD stage 4 [ ] CKD stage 5 [ ] Other (please specify) [ ] Unable to determine CKD Stage 3 (GFR 30-59) CKD Stage 3a (GFR 45-59) CKD Stage 3b (GFR 30-44) CKD Stage 4 (GFR 15-29) CKD Stage 5 (GFR <15) (Template Last Revised: November 2020) MTDD
[2023-07-01] MEDS: HEPARIN SODIUM,PORCINE 5,000 UNIT/ML 1 ML VIAL SQ SCH ×3 (10:20→23:49)
--- NOTE | 2023-07-01 12:01 | P.PN ---
Subjective Patient is seen in follow-up for acute kidney injury on chronic kidney disease. Renal function improving. On IV fluids. Admits to good urine output. No chest pain or shortness of breath. Vital signs are stable. General: No acute distress. HEENT: Head exam is unremarkable. LUNGS: No audible rhonchi or wheezes. HEART: Rate and Rhythm are regular. ABDOMEN: Nontender. EXTREMITITES: No edema. Objective - Vital Signs Vital signs: Vital Signs Temp 98.1 F 07/01/23 11:01 Pulse 69 07/01/23 11:01 Resp 16 07/01/23 11:01 BP 139/81 07/01/23 11:01 Pulse Ox 95 07/01/23 07:18 FiO2 Intake & Output 06/30/23 07/01/23 07/01/23 18:59 06:59 18:59 Intake Total 654 214.933 248.917 Balance 654 214.933 248.917 Weight 123.1 kg Intake: Intake, IV Titration 214.933 128.917 Amount Heparin Sod,Pork in 0.45% 214.933 128.917 NaCl 25,000 unit In 0.45 % NaCl 1 250ml.bag @ 8. 319 UNITS/KG/HR 10 mls/hr IV .Q24H [facility] Rx#: [id number] Oral 654 120 Other: Voiding Method Toilet # Voids 1 - Labs CBC & Chem 7: 06/28/23 13:52 07/01/23 06:57 Labs: Abnormal Lab Results - Last 24 Hours (Table) 06/30/23 06/30/23 07/01/23 Range/Units 17:06 19:56 05:48 APTT (22.0-30.0) sec Sodium (137-145) mmol/L Chloride (98-107) mmol/L Carbon Dioxide (22-30) mmol/L BUN (9-20) mg/dL Creatinine (0.66-1.25) mg/dL Glucose (74-99) mg/dL POC Glucose (mg/dL) 235 H 284 H 289 H (70-110) mg/dL 07/01/23 07/01/23 Range/Units 06:57 06:57 APTT 40.4 H (22.0-30.0) sec Sodium 135 L (137-145) mmol/L Chloride 108 H (98-107) mmol/L Carbon Dioxide 21 L (22-30) mmol/L BUN 43 H (9-20) mg/dL Creatinine 2.10 H (0.66-1.25) mg/dL Glucose 239 H (74-99) mg/dL POC Glucose (mg/dL) (70-110) mg/dL Assessment and Plan Plan: Assessment: 1. Acute kidney injury secondary to vasomotor nephropathy from hypovolemia. Creatinine 4.79 on admission and is 2.1 today. UA benign. No hydronephrosis noted on kidney ultrasound. Right kidney atrophic. 2. Chronic kidney disease stage IIIB with baseline creatinine 1.5-2 secondary to diabetic kidney disease. 3. Chronic diastolic CHF. 4. Diabetes mellitus. 5. Acute coronary syndrome. Cardiology following. 6. Coronary artery disease status post multiple cardiac stents in the past. Plan: Hep-Lock IV fluids. Resume again at midnight. Cardiac cath scheduled for tomorrow now. Continue to hold diuretics. Avoid nephrotoxins. Continue to monitor renal function and urine output. Patient will need cardiac cath in the near future, possibly tomorrow. Discussed with patient the risk of worsening renal function, potentially requiring renal replacement therapy, post-IV contrast exposure. He understands.
--- NOTE | 2023-07-01 12:28 | P.PN ---
Subjective HISTORY OF PRESENT ILLNESS: This is a 52-year-old male with a past medical history significant for coronary artery disease with 4 vessel CABG in 2021 (HONG to LAD, left radial to ramus intermedius, SVG to OM 2, SVG to PDA), paroxysmal atrial fibrillation, chronic kidney disease , hypertension, hyperlipidemia, diabetes and nicotine dependence. Patient follows in the office with Dr. Bello but has not been seen in the office since January 2022. We have been asked to see the patient in consultation for non- STEMI. Patient examined at the bedside. Patient states yesterday he was walking downtown when he began to have chest pain. He states the pain is in the middle of his chest. He reports feeling significantly short of breath as well. He reports feeling diaphoretic and lightheaded. He states this felt similar to his previous heart attack so he came to the emergency room for further evaluation. Patient was found to have elevated troponins and was started on IV heparin. He was also found to have acute renal failure. At the time of examination, patient denies any chest pain or pressure. He denies any shortness of breath. Vital signs are stable. Patient also reports he has not been taking any of his medications as prescribed. He states he had an issue with bedbugs recently and threw out everything in his house including his medications. * EKG reveals sinus mechanism with T wave inversions in high lateral leads * Chest xray negative for acute process * Laboratory data: W BC 9.4. Hemoglobin 15.2. Platelet count 383. Sodium 135. Potassium 4.5. BUN 87. Creatinine 4.79. Troponin 0.100. 1.320. 2.020 * Most recent echocardiogram obtained in May 2023 revealing ejection fraction 50-55%, severe concentric left ventricular hypertrophy, mild MR, mild TR 06/30/2023 Patient examined this morning at the bedside. Patient denies any further episodes of chest pain or pressure. He denies shortness of breath. He remains on IV heparin. Nephrology is following for acute kidney injury. Creatinine has improved today to 2.75. Echocardiogram completed revealing ejection fraction of 50-55%, with trace TR. 07/01/2023 Patient examined this morning at the bedside. Patient denies any chest pain or pressure. He denies any shortness of breath. He remains on IV heparin. Vital signs are stable. Creatinine improved to 2.1. PHYSICAL EXAM: VITAL SIGNS: Reviewed. GENERAL: Well-developed in no acute distress. HEENT: Head is normocephalic. Pupils are equal, round. Sclerae anicteric. Mucous membranes of the mouth are moist. Neck supple. No JVD or thyromegaly LUNGS: Respirations even and unlabored. Lungs essentially clear to auscultation bilaterally. HEART: Regular rate and rhythm. S1 and S2 heard. ABDOMEN: Soft. Nondistended. Nontender. EXTREMITIES: Normal range of motion. No clubbing or cyanosis. Peripheral pulses intact. No lower extremity edema NEUROLOGIC: Awake and alert. Oriented x 3. ASSESSMENT: Non-STEMI Acute on chronic kidney disease Coronary artery disease with 4 vessel CABG, 2021 Paroxysmal atrial fibrillation Hypertension Hyperlipidemia Diabetes Nicotine dependence Medication noncompliance PLAN: Continue dual antiplatelet therapy with aspirin and Plavix Discontinue IV heparin. Eliquis currently on hold Nephrology following for acute renal failure. Entresto and diuretics on hold due to DEBBIE. Patient will require cardiac catheterization when he is medically stable and kidney function improves NPO at midnight. Possible cardiac catheterization tomorrow if kidney function improves Further recommendations pending patient's course Nurse practitioner note has been reviewed by physician. Signing provider agrees with the documented findings, assessment, and plan of care. Objective - Vital Signs Vital signs: Vital Signs Temp 98.1 F 07/01/23 11:01 Pulse 69 07/01/23 11:01 Resp 16 07/01/23 11:01 BP 139/81 07/01/23 11:01 Pulse Ox 95 07/01/23 07:18 FiO2 Intake & Output 06/30/23 07/01/23 07/01/23 18:59 06:59 18:59 Intake Total 654 214.933 248.917 Balance 654 214.933 248.917 Weight 123.1 kg Intake: Intake, IV Titration 214.933 128.917 Amount Heparin Sod,Pork in 0.45% 214.933 128.917 NaCl 25,000 unit In 0.45 % NaCl 1 250ml.bag @ 8. 319 UNITS/KG/HR 10 mls/hr IV .Q24H [facility] Rx#: [id number] Oral 654 120 Other: Voiding Method Toilet # Voids 1 - Labs CBC & Chem 7: 06/28/23 13:52 07/01/23 06:57 Labs: Abnormal Lab Results - Last 24 Hours (Table) 06/30/23 06/30/23 07/01/23 Range/Units 17:06 19:56 05:48 APTT (22.0-30.0) sec Sodium (137-145) mmol/L Chloride (98-107) mmol/L Carbon Dioxide (22-30) mmol/L BUN (9-20) mg/dL Creatinine (0.66-1.25) mg/dL Glucose (74-99) mg/dL POC Glucose (mg/dL) 235 H 284 H 289 H (70-110) mg/dL 07/01/23 07/01/23 Range/Units 06:57 06:57 APTT 40.4 H (22.0-30.0) sec Sodium 135 L (137-145) mmol/L Chloride 108 H (98-107) mmol/L Carbon Dioxide 21 L (22-30) mmol/L BUN 43 H (9-20) mg/dL Creatinine 2.10 H (0.66-1.25) mg/dL Glucose 239 H (74-99) mg/dL POC Glucose (mg/dL) (70-110) mg/dL
[2023-07-01 17:04] LABS: Glucose,Whole Blood 234 mg/dL (70-110)
[2023-07-01] MEDS: metFORMIN 500 MG TAB PO SCH (17:08)
[2023-07-01 20:02] LABS: Glucose,Whole Blood 217 mg/dL (70-110)
[2023-07-01] MEDS: ATORVASTATIN 40 MG TAB PO SCH (21:20)
[2023-07-02 05:47] LABS: Glucose,Whole Blood 250 mg/dL (70-110)
[2023-07-02] MEDS: carvediloL 12.5 MG TAB PO SCH ×2 (07:02→17:23)
[2023-07-02] MEDS: PANTOPRAZOLE 40 MG TABLET PO SCH (07:02)
[2023-07-02] MEDS: metFORMIN 500 MG TAB PO SCH (07:02)
[2023-07-02] MEDS: INSULIN DETEMIR (LEVEMIR) 100 UNIT/ML SYR SQ SCH (07:02)
[2023-07-02] MEDS: SYMBICORT 160-4.5 MCG INHALER INHALATION SCH ×2 (07:37→20:40)
[2023-07-02] MEDS: ASPIRIN 81 MG PO SCH (08:09)
[2023-07-02] MEDS: ISOSORBIDE MONONITRATE ER 30 MG TAB.ER.24H PO SCH (08:09)
[2023-07-02] MEDS: CLOPIDOGREL 75 MG TAB PO SCH (08:09)
[2023-07-02] MEDS: allopurinoL 300 MG TAB PO SCH (08:10)
[2023-07-02] MEDS: HEPARIN SODIUM,PORCINE 5,000 UNIT/ML 1 ML VIAL SQ SCH ×3 (08:10→23:28)
[2023-07-02] MEDS: COLCHICINE 0.6 MG EACH PO SCH ×2 (08:10→21:44)
[2023-07-02] MEDS: FENOFIBRATE 54 MG TAB PO SCH (08:10)
[2023-07-02] MEDS: DULoxetine HCL 30 MG CAPSULE.DR PO SCH ×2 (08:10→20:35)
[2023-07-02] MEDS: AMIODARONE 200 MG TAB PO SCH (08:10)
[2023-07-02] MEDS: NICOTINE 14MG/24HR PATCH TRANSDERM SCH (08:18)
[2023-07-02 08:23] LABS: African American GFR (CKD) 47 (>60 ml/min/1.73 sqM); Anion Gap 7 mmol/L; Blood Urea Nitrogen 34 mg/dL (9-20); Calcium 8.7 mg/dL (8.4-10.2); Carbon Dioxide 22 mmol/L (22-30); Chloride 106 mmol/L (98-107); Glucose 231 mg/dL (74-99); Magnesium 1.3 mg/dL (1.6-2.3); Non-African American GFR(CKD) 41 (>60 ml/min/1.73 sqM); Potassium 4.7 mmol/L (3.5-5.1); Sodium 135 mmol/L (137-145)
[2023-07-02] MEDS ORDERED: ATORVASTATIN 80 MG TAB PO STA (09:44)
[2023-07-02] MEDS ORDERED: ALPRAZolam 0.25 MG TAB PO PRN (09:44)
[2023-07-02] MEDS ORDERED: ALPRAZolam 0.5 MG TAB PO PRN (09:44)
[2023-07-02] MEDS ORDERED: NITROGLYCERIN SL TABS 0.4 MG TAB SUBLINGUAL PRN (09:44)
[2023-07-02] MEDS ORDERED: ASPIRIN 325 MG TAB PO STA (09:44)
[2023-07-02] MEDS: SODIUM CHLORIDE 0.9% 1,000 ML in EMPTY BAG 1 BAG IV SCH ×2 (10:00→19:02)
[2023-07-02] MEDS ORDERED: ASPIRIN 81 MG PO STA (11:04)
[2023-07-02] MEDS ORDERED: HEPARIN SODIUM 1,000 UN/ML (10ML VL) ONE (11:06)
[2023-07-02] MEDS ORDERED: VERAPAMIL 2.5 MG/ML 2 ML AMP ONE (11:06)
[2023-07-02] MEDS ORDERED: LIDOCAINE 1% INJ 10MG/ML (20 ML MDV) ONE (11:30)
[2023-07-02] MEDS ORDERED: IV FLUID CONTINUATION 1,000 ML IV ONE (11:30)
[2023-07-02] MEDS ORDERED: fentaNYL (PF) 50 MCG/ML 2 ML AMP ONE (11:35)
[2023-07-02] MEDS ORDERED: fentaNYL (PF) 50 MCG/ML 2 ML AMP IVP ONE (11:36)
[2023-07-02] MEDS ORDERED: MIDAZOLAM 2 MG/2 ML VIAL IVP ONE (11:37)
[2023-07-02] MEDS ORDERED: LIDOCAINE 1% INJ 10MG/ML (20 ML MDV) SQ ONE (11:37)
--- NOTE | 2023-07-02 11:48 | P.PN ---
Subjective Patient is seen in follow-up for acute kidney injury on chronic kidney disease. Renal function improving. On IV fluids. Admits to good urine output. No chest pain or shortness of breath. Scheduled for cardiac catheterization today. Vital signs are stable. General: No acute distress. HEENT: Head exam is unremarkable. LUNGS: No audible rhonchi or wheezes. HEART: Rate and Rhythm are regular. ABDOMEN: Nontender. EXTREMITITES: No edema. Objective - Vital Signs Vital signs: Vital Signs Temp 97.4 F L 07/02/23 08:05 Pulse 63 07/02/23 08:05 Resp 14 07/02/23 08:05 BP 132/76 07/02/23 08:05 Pulse Ox 96 07/02/23 08:05 FiO2 Intake & Output 07/01/23 07/02/23 07/02/23 18:59 06:59 18:59 Intake Total 879.284 3014 349 Balance 893.856 8826 349 Weight 124.3 kg Intake: Intake, IV Titration 128.917 349 Amount Heparin Sod,Pork in 0.45% 128.917 NaCl 25,000 unit In 0.45 % NaCl 1 250ml.bag @ 8. 319 UNITS/KG/HR 10 mls/hr IV .Q24H [facility] Rx#: [id number] Sodium Chloride 0.9% 1, 225 000 ml @ 75 mls/hr IV . [id number] [facility] Rx#:[id number] Sodium Chloride 0.9% 1, 124 000 ml In Empty Bag 1 bag @ 1 ML/KG/HR 124.3 mls/ hr IV .[id number] [facility] Rx#: [id number] Oral 720 1110 Other: Voiding Method Toilet Toilet Toilet # Voids 1 1 2 - Labs CBC & Chem 7: 06/28/23 13:52 07/02/23 06:54 Labs: Abnormal Lab Results - Last 24 Hours (Table) 07/01/23 07/01/23 07/02/23 Range/Units 17:01 19:59 05:46 Sodium (137-145) mmol/L BUN (9-20) mg/dL Creatinine (0.66-1.25) mg/dL Glucose (74-99) mg/dL POC Glucose (mg/dL) 234 H 217 H 250 H (70-110) mg/dL Magnesium (1.6-2.3) mg/dL 07/02/23 Range/Units 06:54 Sodium 135 L (137-145) mmol/L BUN 34 H (9-20) mg/dL Creatinine 1.85 H (0.66-1.25) mg/dL Glucose 231 H (74-99) mg/dL POC Glucose (mg/dL) (70-110) mg/dL Magnesium 1.3 L (1.6-2.3) mg/dL Assessment and Plan Plan: Assessment: 1. Acute kidney injury secondary to vasomotor nephropathy from hypovolemia. Creatinine 4.79 on admission and is 1.85 today. UA benign. No hydronephrosis noted on kidney ultrasound. Right kidney atrophic. 2. Chronic kidney disease stage IIIB with baseline creatinine 1.5-2 secondary to diabetic kidney disease. 3. Chronic diastolic CHF. 4. Diabetes mellitus. 5. Acute coronary syndrome. Cardiology following. 6. Coronary artery disease status post multiple cardiac stents in the past. 7. Hypomagnesemia from poor intake. Plan: Maintain IV fluids. Continue to hold diuretics. Replace magnesium. Avoid nephrotoxins. Continue to monitor renal function and urine output. Patient will need cardiac cath in the near future, possibly tomorrow. Discussed with patient the risk of worsening renal function, potentially requiring renal replacement therapy, post-IV contrast exposure. He understands.
[2023-07-02] MEDS ORDERED: IOPAMIDOL-370 100ML BTL INJ ONE ×2 (12:02→12:14)
--- NOTE | 2023-07-02 12:25 | P.PN ---
Subjective HISTORY OF PRESENT ILLNESS: This is a 52-year-old male with a past medical history significant for coronary artery disease with 4 vessel CABG in 2021 (HONG to LAD, left radial to ramus intermedius, SVG to OM 2, SVG to PDA), paroxysmal atrial fibrillation, chronic kidney disease , hypertension, hyperlipidemia, diabetes and nicotine dependence. Patient follows in the office with Dr. Bello but has not been seen in the office since January 2022. We have been asked to see the patient in consultation for non- STEMI. Patient examined at the bedside. Patient states yesterday he was walking downtown when he began to have chest pain. He states the pain is in the middle of his chest. He reports feeling significantly short of breath as well. He reports feeling diaphoretic and lightheaded. He states this felt similar to his previous heart attack so he came to the emergency room for further evaluation. Patient was found to have elevated troponins and was started on IV heparin. He was also found to have acute renal failure. At the time of examination, patient denies any chest pain or pressure. He denies any shortness of breath. Vital signs are stable. Patient also reports he has not been taking any of his medications as prescribed. He states he had an issue with bedbugs recently and threw out everything in his house including his medications. * EKG reveals sinus mechanism with T wave inversions in high lateral leads * Chest xray negative for acute process * Laboratory data: W BC 9.4. Hemoglobin 15.2. Platelet count 383. Sodium 135. Potassium 4.5. BUN 87. Creatinine 4.79. Troponin 0.100. 1.320. 2.020 * Most recent echocardiogram obtained in May 2023 revealing ejection fraction 50-55%, severe concentric left ventricular hypertrophy, mild MR, mild TR 06/30/2023 Patient examined this morning at the bedside. Patient denies any further episodes of chest pain or pressure. He denies shortness of breath. He remains on IV heparin. Nephrology is following for acute kidney injury. Creatinine has improved today to 2.75. Echocardiogram completed revealing ejection fraction of 50-55%, with trace TR. 07/01/2023 Patient examined this morning at the bedside. Patient denies any chest pain or pressure. He denies any shortness of breath. He remains on IV heparin. Vital signs are stable. Creatinine improved to 2.1. 07/02/2023 Patient examined this morning at the bedside. Patient denies any chest pain or pressure. He denies shortness of breath. Creatinine has improved today down to 1.85. PHYSICAL EXAM: VITAL SIGNS: Reviewed. GENERAL: Well-developed in no acute distress. HEENT: Head is normocephalic. Pupils are equal, round. Sclerae anicteric. Mucous membranes of the mouth are moist. Neck supple. No JVD or thyromegaly LUNGS: Respirations even and unlabored. Lungs essentially clear to auscultation bilaterally. HEART: Regular rate and rhythm. S1 and S2 heard. ABDOMEN: Soft. Nondistended. Nontender. EXTREMITIES: Normal range of motion. No clubbing or cyanosis. Peripheral pulses intact. No lower extremity edema NEUROLOGIC: Awake and alert. Oriented x 3. ASSESSMENT: Non-STEMI Acute on chronic kidney disease Coronary artery disease with 4 vessel CABG, 2021 Paroxysmal atrial fibrillation Hypertension Hyperlipidemia Diabetes Nicotine dependence Medication noncompliance PLAN: Continue dual antiplatelet therapy with aspirin and Plavix Eliquis currently on hold. Resume postprocedure. Nephrology following for acute renal failure. Entresto and diuretics on hold due to DEBBIE. Patient to undergo cardiac catheterization today with Dr. Lynn Further recommendations pending patient's course Nurse practitioner note has been reviewed by physician. Signing provider agrees with the documented findings, assessment, and plan of care. Objective - Vital Signs Vital signs: Vital Signs Temp 97.4 F L 07/02/23 08:05 Pulse 63 07/02/23 08:05 Resp 14 07/02/23 08:05 BP 132/76 07/02/23 08:05 Pulse Ox 96 07/02/23 08:05 FiO2 Intake & Output 07/01/23 07/02/23 07/02/23 18:59 06:59 18:59 Intake Total 198.793 7056 399 Balance 414.108 9991 399 Weight 124.3 kg Intake: IV 50 Intake, IV Titration 128.917 349 Amount Heparin Sod,Pork in 0.45% 128.917 NaCl 25,000 unit In 0.45 % NaCl 1 250ml.bag @ 8. 319 UNITS/KG/HR 10 mls/hr IV .Q24H [facility] Rx#: [id number] Sodium Chloride 0.9% 1, 225 000 ml @ 75 mls/hr IV . [id number] [facility] Rx#:[id number] Sodium Chloride 0.9% 1, 124 000 ml In Empty Bag 1 bag @ 1 ML/KG/HR 124.3 mls/ hr IV .Q8H3M [facility] Rx#: [id number] Oral 720 1110 Other: Voiding Method Toilet Toilet Toilet # Voids 1 1 2 - Labs CBC & Chem 7: 06/28/23 13:52 07/02/23 06:54 Labs: Abnormal Lab Results - Last 24 Hours (Table) 07/01/23 07/01/23 07/02/23 Range/Units 17:01 19:59 05:46 Sodium (137-145) mmol/L BUN (9-20) mg/dL Creatinine (0.66-1.25) mg/dL Glucose (74-99) mg/dL POC Glucose (mg/dL) 234 H 217 H 250 H (70-110) mg/dL Magnesium (1.6-2.3) mg/dL 07/02/23 Range/Units 06:54 Sodium 135 L (137-145) mmol/L BUN 34 H (9-20) mg/dL Creatinine 1.85 H (0.66-1.25) mg/dL Glucose 231 H (74-99) mg/dL POC Glucose (mg/dL) (70-110) mg/dL Magnesium 1.3 L (1.6-2.3) mg/dL
[2023-07-02 12:30] LABS: Glucose,Whole Blood 185 mg/dL (70-110)
[2023-07-02] MEDS: MAGNESIUM SULFATE-D5W PMX 1 GM in DEXTROSE/WATER 1 100ML.BAG IVPB SCH ×2 (12:41→17:23)
[2023-07-02] MEDS: SODIUM CHLORIDE 0.9% 1,000 ML IV SCH ×2 (12:42→19:00)
[2023-07-02] MEDS ORDERED: RX INFO: IV CONTRAST WAS GIVEN 1 EACH MISC MISCELLANE PRN (12:54)
[2023-07-02] MEDS ORDERED: SODIUM CHLORIDE 0.9% 1,000 ML IV SCH (13:00)
--- NOTE | 2023-07-02 13:00 | P.PCN ---
Date of Procedure: 07/02/23 Operative Findings: CARDIAC CATHETERIZATION PERFORMING PHYSICIAN: Benja Bello MD, RPVI PROCEDURE PERFORMED: 1. Selective right and left coronary angiogram 2. Left heart catheterization 3. HONG to LAD angiogram and radial artery graft to ramus intermedius angiogram and SVG to LCx angiogram and SVG to RCA angiogram 4. Selective right common femoral artery angiogram 5. Ultrasound-guided access of the right common femoral artery INDICATION: Acute non-ST elevation myocardial infarction COMPLICATION: None APPROACH: Right common femoral artery LEVEL OF SEDATION: Moderate with sedation in length of 39 minutes PROCEDURE DESCRIPTION: After obtaining an informed consent, the patient was brought to cardiac labour market economist. Local anesthesia was performed using lidocaine subcutaneously. The right common femoral artery was cannulated using Seldinger technique, the guidewire passed easily, following that we advanced a 6 Iraqi sheath dilator assembly, the wire and dilator were removed and sheath was flushed. Selective right and left coronary angiogram using a 6-Iraqi JR4 and JL catheters. The HONG into LAD angiogram was performed using JR4 catheter. The radial artery to OM angiogram was performed using an LCB. The SVG to LCx angiogram was performed using LCB as well. The SVG to RCA angiogram was performed using Germán right catheter. Following that we did left heart catheterization using 6-Iraqi pigtail catheter. The procedure was completed there was no complication. SELECTIVE CORONARY ANGIOGRAM: The right coronary artery: Large caliber vessel, calcified vessel, dominant vessel, is chronically occluded in the midportion Left main: Calcified was mild disease only. The left circumflex: Has an intermediate to severe disease in the midportion The left anterior descending artery: The proximal LAD is a stented by the bifurcation of a diagonal branch which has a tight lesion by the ostium. The LAD in the midportion has intermediate to severe lesion. There was competitive flow was seen in the mid LAD by the HONG anastomosis. The LAD distal to HONG anastomosis has intermediate to severe lesion appeared to be in the range of 60-70% Coronary bypasses angiogram: The HONG to LAD is patent with disease in the LAD distal to HONG anastomosis appears to be in the range of 60-70% The radial artery to ramus intermedius is patent The SVG to LCx is occluded The SVG to RCA and was mild to moderate diffuse disease HEMODYNAMICS: The LVEDP was 20 mmHg was no significant gradient across aortic valve CONCLUSION: 1. Severe triple-vessel coronary artery disease 2. Patent HONG to LAD. The LAD distal to HONG anastomosis has intermediate to severe lesion. 3. Patent radial artery graft to ramus intermedius 4. Occluded SVG to LCx 5. [id number] diffuse disease involving the SVG to RCA POSTPROCEDURE MANAGEMENT: Consider medical treatment at this point. We reached the maximal amount of contrast Consider obtaining a stress test as an outpatient to assess ischemia in the LAD territory Consider PCI of the LAD through his [place] system if there is ischemia was detected by the stress test and if the patient remains symptomatic
[2023-07-02 16:23] LABS: Glucose,Whole Blood 180 mg/dL (70-110)
[2023-07-02 20:22] LABS: Glucose,Whole Blood 232 mg/dL (70-110)
[2023-07-02] MEDS: ATORVASTATIN 40 MG TAB PO SCH (20:35)
[2023-07-03] MEDS: SODIUM CHLORIDE 0.9% 1,000 ML in EMPTY BAG 1 BAG IV SCH ×3 (05:59→18:36)
[2023-07-03 06:09] LABS: Glucose,Whole Blood 195 mg/dL (70-110)
[2023-07-03] MEDS: INSULIN DETEMIR (LEVEMIR) 100 UNIT/ML SYR SQ SCH (06:09)
[2023-07-03] MEDS: SODIUM CHLORIDE 0.9% 1,000 ML IV SCH (06:10)
[2023-07-03] MEDS: PANTOPRAZOLE 40 MG TABLET PO SCH (06:11)
[2023-07-03] MEDS: carvediloL 12.5 MG TAB PO SCH ×2 (06:11→17:43)
[2023-07-03] MEDS ORDERED: HEPARIN SODIUM,PORCINE 10,000 UNIT in SODIUM CHLORIDE 0.9% 1,000 ML IRRIGATION PRN (07:00)
[2023-07-03] MEDS ORDERED: HEPARIN SODIUM,PORCINE (1 ML) 2,500 UNIT in SODIUM CHLORIDE 0.9% 250 ML IRRIGATION PRN (07:00)
[2023-07-03 07:58] LABS: African American GFR (CKD) 50 (>60 ml/min/1.73 sqM); Anion Gap 6 mmol/L; Blood Urea Nitrogen 27 mg/dL (9-20); Calcium 8.8 mg/dL (8.4-10.2); Carbon Dioxide 24 mmol/L (22-30); Chloride 106 mmol/L (98-107); Glucose 154 mg/dL (74-99); Magnesium 1.6 mg/dL (1.6-2.3); Non-African American GFR(CKD) 44 (>60 ml/min/1.73 sqM); Potassium 4.9 mmol/L (3.5-5.1); Sodium 136 mmol/L (137-145)
[2023-07-03] MEDS: SYMBICORT 160-4.5 MCG INHALER INHALATION SCH ×2 (08:59→20:49)
[2023-07-03] MEDS: NICOTINE 14MG/24HR PATCH TRANSDERM SCH (09:11)
[2023-07-03] MEDS: AMIODARONE 200 MG TAB PO SCH (09:12)
[2023-07-03] MEDS: HEPARIN SODIUM,PORCINE 5,000 UNIT/ML 1 ML VIAL SQ SCH ×2 (09:12→17:43)
[2023-07-03] MEDS: COLCHICINE 0.6 MG EACH PO SCH ×2 (09:12→20:31)
[2023-07-03] MEDS: allopurinoL 300 MG TAB PO SCH (09:12)
[2023-07-03] MEDS: DULoxetine HCL 30 MG CAPSULE.DR PO SCH ×2 (09:13→20:31)
[2023-07-03] MEDS: ISOSORBIDE MONONITRATE ER 30 MG TAB.ER.24H PO SCH (09:13)
[2023-07-03] MEDS: FENOFIBRATE 54 MG TAB PO SCH (09:13)
[2023-07-03] MEDS: ASPIRIN 81 MG PO SCH (09:13)
[2023-07-03] MEDS: CLOPIDOGREL 75 MG TAB PO SCH (09:13)
--- NOTE | 2023-07-03 10:38 | P.PN ---
Subjective HISTORY OF PRESENT ILLNESS: This is a 52-year-old male with a past medical history significant for coronary artery disease with 4 vessel CABG in 2021 (HONG to LAD, left radial to ramus intermedius, SVG to OM 2, SVG to PDA), paroxysmal atrial fibrillation, chronic kidney disease , hypertension, hyperlipidemia, diabetes and nicotine dependence. Patient follows in the office with Dr. Bello but has not been seen in the office since January 2022. We have been asked to see the patient in consultation for non- STEMI. Patient examined at the bedside. Patient states yesterday he was walking downtown when he began to have chest pain. He states the pain is in the middle of his chest. He reports feeling significantly short of breath as well. He reports feeling diaphoretic and lightheaded. He states this felt similar to his previous heart attack so he came to the emergency room for further evaluation. Patient was found to have elevated troponins and was started on IV heparin. He was also found to have acute renal failure. At the time of examination, patient denies any chest pain or pressure. He denies any shortness of breath. Vital signs are stable. Patient also reports he has not been taking any of his medications as prescribed. He states he had an issue with bedbugs recently and threw out everything in his house including his medications. * EKG reveals sinus mechanism with T wave inversions in high lateral leads * Chest xray negative for acute process * Laboratory data: W BC 9.4. Hemoglobin 15.2. Platelet count 383. Sodium 135. Potassium 4.5. BUN 87. Creatinine 4.79. Troponin 0.100. 1.320. 2.020 * Most recent echocardiogram obtained in May 2023 revealing ejection fraction 50-55%, severe concentric left ventricular hypertrophy, mild MR, mild TR 06/30/2023 Patient examined this morning at the bedside. Patient denies any further episodes of chest pain or pressure. He denies shortness of breath. He remains on IV heparin. Nephrology is following for acute kidney injury. Creatinine has improved today to 2.75. Echocardiogram completed revealing ejection fraction of 50-55%, with trace TR. 07/01/2023 Patient examined this morning at the bedside. Patient denies any chest pain or pressure. He denies any shortness of breath. He remains on IV heparin. Vital signs are stable. Creatinine improved to 2.1. 07/02/2023 Patient examined this morning at the bedside. Patient denies any chest pain or pressure. He denies shortness of breath. Creatinine has improved today down to 1.85. 07/03/2023 Patient is status post cardiac catheterization with Dr. Bello revealing severe triple vessel coronary artery disease. Patent HONG to LAD. The LAD distal to the HONG anastomosis has intermediate to severe lesion. Patent radial artery graft to ramus intermedius. Occluded SVG to left circumflex. [id number] diffuse disease involving SVG to RCA. Medical management was recommended as patient had reached the maximum amount of contrast. Patient examined this morning at the bedside. Patient denies chest pain or pressure. He denies any shortness of breath. Vital signs are stable. Creatinine today 1.75. PHYSICAL EXAM: VITAL SIGNS: Reviewed. GENERAL: Well-developed in no acute distress. HEENT: Head is normocephalic. Pupils are equal, round. Sclerae anicteric. Mucous membranes of the mouth are moist. Neck supple. No JVD or thyromegaly LUNGS: Respirations even and unlabored. Lungs essentially clear to auscultation bilaterally. HEART: Regular rate and rhythm. S1 and S2 heard. ABDOMEN: Soft. Nondistended. Nontender. EXTREMITIES: Normal range of motion. No clubbing or cyanosis. Peripheral pulses intact. No lower extremity edema NEUROLOGIC: Awake and alert. Oriented x 3. ASSESSMENT: Non-STEMI, status post cardiac catheterization as above Acute on chronic kidney disease Coronary artery disease with 4 vessel CABG, 2021 Paroxysmal atrial fibrillation Hypertension Hyperlipidemia Diabetes Nicotine dependence Medication noncompliance PLAN: Continue dual antiplatelet therapy with aspirin and Plavix Resume James schneider at 2100 Nephrology following for acute renal failure. Entresto and diuretics on hold due to DEBBIE. Patient is currently stable from a cardiac standpoint Further recommendations pending patient's course Nurse practitioner note has been reviewed by physician. Signing provider agrees with the documented findings, assessment, and plan of care. Objective - Vital Signs Vital signs: Vital Signs Temp 97.9 F 07/03/23 09:03 Pulse 69 07/03/23 09:03 Resp 18 07/03/23 09:03 BP 145/76 07/03/23 09:03 Pulse Ox 96 07/03/23 09:03 FiO2 Intake & Output 07/02/23 07/03/2307/03/23 18:59 06:59 18:59 Intake Total 734 Output Total 500 Balance 234 Intake: IV 50 Intake, IV Titration 349 Amount Sodium Chloride 0.9% 1, 225 000 ml @ 75 mls/hr IV . [id number] [facility] Rx#:[id number] Sodium Chloride 0.9% 1, 124 000 ml In Empty Bag 1 bag @ 1 ML/KG/HR 124.3 mls/ hr IV .Q8H3M [facility] Rx#: [id number] Oral 335 Output: Urine 500 Other: Voiding Method Toilet Toilet # Voids 2 1 - Labs CBC & Chem 7: 06/28/23 13:52 07/03/23 06:53 Labs: Abnormal Lab Results - Last 24 Hours (Table) 07/02/23 07/02/23 07/02/23 Range/Units 12:29 16:21 20:20 Sodium (137-145) mmol/L BUN (9-20) mg/dL Creatinine (0.66-1.25) mg/dL Glucose (74-99) mg/dL POC Glucose (mg/dL) 185 H 180 H 232 H (70-110) mg/dL 07/03/23 07/03/23 Range/Units 06:07 06:53 Sodium 136 L (137-145) mmol/L BUN 27 H (9-20) mg/dL Creatinine 1.75 H (0.66-1.25) mg/dL Glucose 154 H (74-99) mg/dL POC Glucose (mg/dL) 195 H (70-110) mg/dL
--- NOTE | 2023-07-03 11:11 | P.PN ---
Subjective Patient is seen in follow-up for acute kidney injury on chronic kidney disease. Renal function improving. On IV fluids. Admits to good urine output. No chest pain or shortness of breath. Catheterization done 07/02/2023 shows severe triple-vessel coronary artery disease. Vital signs are stable. General: No acute distress. HEENT: Head exam is unremarkable. LUNGS: No audible rhonchi or wheezes. HEART: Rate and Rhythm are regular. ABDOMEN: Nontender. EXTREMITITES: No edema. Objective - Vital Signs Vital signs: Vital Signs Temp 97.9 F 07/03/23 09:03 Pulse 69 07/03/23 09:03 Resp 18 07/03/23 09:03 BP 145/76 07/03/23 09:03 Pulse Ox 96 07/03/23 09:03 FiO2 Intake & Output 07/02/23 07/03/23 07/03/23 18:59 06:59 18:59 Intake Total 734 Output Total 500 Balance 234 Intake: IV 50 Intake, IV Titration 349 Amount Sodium Chloride 0.9% 1, 225 000 ml @ 75 mls/hr IV . [id number] [facility] Rx#:[id number] Sodium Chloride 0.9% 1, 124 000 ml In Empty Bag 1 bag @ 1 ML/KG/HR 124.3 mls/ hr IV .Q8H3M [facility] Rx#: [id number] Oral 335 Output: Urine 500 Other: Voiding Method Toilet Toilet Toilet # Voids 2 1 - Labs CBC & Chem 7: 06/28/23 13:52 07/03/23 06:53 Labs: Abnormal Lab Results - Last 24 Hours (Table) 07/02/23 07/02/23 07/02/23 Range/Units 12:29 16:21 20:20 Sodium (137-145) mmol/L BUN (9-20) mg/dL Creatinine (0.66-1.25) mg/dL Glucose (74-99) mg/dL POC Glucose (mg/dL) 185 H 180 H 232 H (70-110) mg/dL 07/03/23 07/03/23 Range/Units 06:07 06:53 Sodium 136 L (137-145) mmol/L BUN 27 H (9-20) mg/dL Creatinine 1.75 H (0.66-1.25) mg/dL Glucose 154 H (74-99) mg/dL POC Glucose (mg/dL) 195 H (70-110) mg/dL Assessment and Plan Plan: Assessment: 1. Acute kidney injury secondary to vasomotor nephropathy from hypovolemia. C reatinine 4.79 on admission and is 1.75 today. UA benign. No hydronephrosis noted on kidney ultrasound. Right kidney atrophic. 2. Chronic kidney disease stage IIIB with baseline creatinine 1.5-2 secondary to diabetic kidney disease. 3. Chronic diastolic CHF. 4. Diabetes mellitus. 5. Acute coronary syndrome. Cardiology following. Cardiac catheterization done 07/02/2023 shows severe triple-vessel disease. 6. Coronary artery disease status post multiple cardiac stents in the past. 7. Hypomagnesemia from poor intake. Replaced. Better. Plan: Hep-Lock IV fluids. Add oral magnesium oxide. Avoid nephrotoxins. Continue to monitor renal function and urine output. Repeat BMP and magnesium level 2-3 days postdischarge. Follow up outpatient in 1 week.
[2023-07-03 11:40] LABS: Glucose,Whole Blood 231 mg/dL (70-110)
[2023-07-03] MEDS: MAGNESIUM OXIDE 400 MG TAB PO SCH (11:47)
[2023-07-03 16:48] LABS: Glucose,Whole Blood 176 mg/dL (70-110)
[2023-07-03 20:09] LABS: Glucose,Whole Blood 204 mg/dL (70-110)
[2023-07-03] MEDS: ATORVASTATIN 40 MG TAB PO SCH (20:31)
[2023-07-03] MEDS: APIXABAN 5 MG TAB PO SCH (20:31)
[2023-07-04] MEDS: SODIUM CHLORIDE 0.9% 1,000 ML in EMPTY BAG 1 BAG IV SCH ×4 (03:20→23:36)
[2023-07-04 06:13] LABS: Glucose,Whole Blood 190 mg/dL (70-110)
[2023-07-04] MEDS: PANTOPRAZOLE 40 MG TABLET PO SCH (06:24)
[2023-07-04] MEDS: carvediloL 12.5 MG TAB PO SCH ×2 (06:24→17:07)
[2023-07-04] MEDS: SYMBICORT 160-4.5 MCG INHALER INHALATION SCH ×2 (08:53→21:08)
[2023-07-04] MEDS: INSULIN DETEMIR (LEVEMIR) 100 UNIT/ML SYR SQ SCH (09:37)
[2023-07-04] MEDS: NICOTINE 14MG/24HR PATCH TRANSDERM SCH (09:37)
[2023-07-04] MEDS: ASPIRIN 81 MG PO SCH (09:38)
[2023-07-04] MEDS: MAGNESIUM OXIDE 400 MG TAB PO SCH (09:38)
[2023-07-04] MEDS: CLOPIDOGREL 75 MG TAB PO SCH (09:38)
[2023-07-04] MEDS: allopurinoL 300 MG TAB PO SCH (09:38)
[2023-07-04] MEDS: AMIODARONE 200 MG TAB PO SCH (09:38)
[2023-07-04] MEDS: FENOFIBRATE 54 MG TAB PO SCH (09:38)
[2023-07-04] MEDS: ISOSORBIDE MONONITRATE ER 30 MG TAB.ER.24H PO SCH (09:38)
[2023-07-04] MEDS: APIXABAN 5 MG TAB PO SCH ×2 (09:38→19:55)
[2023-07-04] MEDS: DULoxetine HCL 30 MG CAPSULE.DR PO SCH ×2 (09:38→19:56)
[2023-07-04] MEDS: COLCHICINE 0.6 MG EACH PO SCH ×2 (09:39→19:55)
--- NOTE | 2023-07-04 10:38 | P.PN ---
Subjective Patient is seen in follow-up for acute kidney injury on chronic kidney disease. Renal function improving. Admits to good urine output. No chest pain or shortness of breath. Catheterization done 07/02/2023 shows severe triple-vessel coronary artery disease. Now off IV fluids. Oral intake is good. Vital signs are stable. General: No acute distress. HEENT: Head exam is unremarkable. LUNGS: No audible rhonchi or wheezes. HEART: Rate and Rhythm are regular. ABDOMEN: Nontender. EXTREMITITES: No edema. Objective - Vital Signs Vital signs: Vital Signs Temp 98.0 F 07/04/23 08:00 Pulse 74 07/04/23 08:00 Resp 16 07/04/23 08:00 BP 124/83 07/04/23 08:00 Pulse Ox 99 07/04/23 08:00 FiO2 Intake & Output 07/03/23 07/04/23 07/04/23 18:59 06:59 18:59 Intake Total 598 10 Balance 598 10 Intake: IV 10 Invasive Line 1 10 Oral 598 Other: Voiding Method Toilet Toilet # Voids 2 5 # Bowel Movements 1 - Labs CBC & Chem 7: 06/28/23 13:52 07/03/23 06:53 Labs: Abnormal Lab Results - Last 24 Hours (Table) 07/03/23 07/03/23 07/03/23 Range/Units 11:39 16:46 20:07 POC Glucose (mg/dL) 231 H 176 H 204 H (70-110) mg/dL 07/04/23 Range/Units 06:12 POC Glucose (mg/dL) 190 H (70-110) mg/dL Assessment and Plan Plan: Assessment: 1. Acute kidney injury secondary to vasomotor nephropathy from hypovolemia. Creatinine 4.79 on admission and 1.75 yesterday. UA benign. No hydronephrosis noted on kidney ultrasound. Right kidney atrophic. 2. Chronic kidney disease stage IIIB with baseline creatinine 1.5-2 secondary to diabetic kidney disease. 3. Chronic diastolic CHF. 4. Diabetes mellitus. 5. Acute coronary syndrome. Cardiology following. Cardiac catheterization done 07/02/2023 shows severe triple-vessel disease. 6. Coronary artery disease status post multiple cardiac stents in the past. 7. Hypomagnesemia from poor intake. On oral magnesium oxide. Plan: Encourage oral intake. Avoid nephrotoxins. Continue to monitor renal function and urine output. Morning labs pending. Repeat BMP and magnesium level 2-3 days postdischarge. Follow up outpatient in 1 week.
[2023-07-04 11:28] LABS: Glucose,Whole Blood 234 mg/dL (70-110)
[2023-07-04 12:00] LABS: African American GFR (CKD) 47 (>60 ml/min/1.73 sqM); Anion Gap 4 mmol/L; Blood Urea Nitrogen 27 mg/dL (9-20); Calcium 8.8 mg/dL (8.4-10.2); Carbon Dioxide 26 mmol/L (22-30); Chloride 105 mmol/L (98-107); Glucose 235 mg/dL (74-99); Magnesium 1.4 mg/dL (1.6-2.3); Non-African American GFR(CKD) 41 (>60 ml/min/1.73 sqM); Potassium 4.8 mmol/L (3.5-5.1); Sodium 135 mmol/L (137-145)
--- NOTE | 2023-07-04 12:10 | P.PN ---
Subjective HISTORY OF PRESENT ILLNESS: This is a 52-year-old male with a past medical history significant for coronary artery disease with 4 vessel CABG in 2021 (HONG to LAD, left radial to ramus intermedius, SVG to OM 2, SVG to PDA), paroxysmal atrial fibrillation, chronic kidney disease , hypertension, hyperlipidemia, diabetes and nicotine dependence. Patient follows in the office with Dr. Bello but has not been seen in the office since January 2022. We have been asked to see the patient in consultation for non- STEMI. Patient examined at the bedside. Patient states yesterday he was walking downtown when he began to have chest pain. He states the pain is in the middle of his chest. He reports feeling significantly short of breath as well. He reports feeling diaphoretic and lightheaded. He states this felt similar to his previous heart attack so he came to the emergency room for further evaluation. Patient was found to have elevated troponins and was started on IV heparin. He was also found to have acute renal failure. At the time of examination, patient denies any chest pain or pressure. He denies any shortness of breath. Vital signs are stable. Patient also reports he has not been taking any of his medications as prescribed. He states he had an issue with bedbugs recently and threw out everything in his house including his medications. * EKG reveals sinus mechanism with T wave inversions in high lateral leads * Chest xray negative for acute process * Laboratory data: W BC 9.4. Hemoglobin 15.2. Platelet count 383. Sodium 135. Potassium 4.5. BUN 87. Creatinine 4.79. Troponin 0.100. 1.320. 2.020 * Most recent echocardiogram obtained in May 2023 revealing ejection fraction 50-55%, severe concentric left ventricular hypertrophy, mild MR, mild TR 06/30/2023 Patient examined this morning at the bedside. Patient denies any further episodes of chest pain or pressure. He denies shortness of breath. He remains on IV heparin. Nephrology is following for acute kidney injury. Creatinine has improved today to 2.75. Echocardiogram completed revealing ejection fraction of 50-55%, with trace TR. 07/01/2023 Patient examined this morning at the bedside. Patient denies any chest pain or pressure. He denies any shortness of breath. He remains on IV heparin. Vital signs are stable. Creatinine improved to 2.1. 07/02/2023 Patient examined this morning at the bedside. Patient denies any chest pain or pressure. He denies shortness of breath. Creatinine has improved today down to 1.85. 07/03/2023 Patient is status post cardiac catheterization with Dr. Bello revealing severe triple vessel coronary artery disease. Patent HONG to LAD. The LAD distal to the HONG anastomosis has intermediate to severe lesion. Patent radial artery graft to ramus intermedius. Occluded SVG to left circumflex. Yhlh-ty-pqpemlbr diffuse disease involving SVG to RCA. Medical management was recommended as patient had reached the maximum amount of contrast. Patient examined this morning at the bedside. Patient denies chest pain or pressure. He denies any shortness of breath. Vital signs are stable. Creatinine today 1.75. 07/04/2023 Patient examined this morning at the bedside. Patient denies chest pain or pressure. He denies shortness of breath. Vital signs are stable. Patient is hoping to be discharged home today. PHYSICAL EXAM: VITAL SIGNS: Reviewed. GENERAL: Well-developed in no acute distress. HEENT: Head is normocephalic. Pupils are equal, round. Sclerae anicteric. Mucous membranes of the mouth are moist. Neck supple. No JVD or thyromegaly LUNGS: Respirations even and unlabored. Lungs essentially clear to auscultation bilaterally. HEART: Regular rate and rhythm. S1 and S2 heard. ABDOMEN: Soft. Nondistended. Nontender. EXTREMITIES: Normal range of motion. No clubbing or cyanosis. Peripheral pulses intact. No lower extremity edema NEUROLOGIC: Awake and alert. Oriented x 3. ASSESSMENT: Non-STEMI, status post cardiac catheterization as above Acute on chronic kidney disease Coronary artery disease with 4 vessel CABG, 2021 Paroxysmal atrial fibrillation Hypertension Hyperlipidemia Diabetes Nicotine dependence Medication noncompliance PLAN: Continue dual antiplatelet therapy with aspirin and Plavix Continue [facility] Nephrology following for acute renal failure. Entresto and diuretics on hold due to DEBBIE. Farxiga added per nephro. Patient is currently stable from a cardiac standpoint Further recommendations pending patient's course Nurse practitioner note has been reviewed by physician. Signing provider agrees with the documented findings, assessment, and plan of care. Objective - Vital Signs Vital signs: Vital Signs Temp 97.9 F 07/04/23 11:21 Pulse 65 07/04/23 11:21 Resp 16 07/04/23 11:21 BP 138/70 07/04/23 11:21 Pulse Ox 98 07/04/23 11:21 FiO2 Intake & Output 07/03/23 07/04/23 07/04/23 18:59 06:59 18:59 Intake Total 598 250 Balance 598 250 Intake: IV 10 Invasive Line 1 10 Oral 598 240 Other: Voiding Method Toilet Toilet Toilet # Voids 2 5 # Bowel Movements 1 - Labs CBC & Chem 7: 06/28/23 13:52 07/04/23 11:14 Labs: Abnormal Lab Results - Last 24 Hours (Table) 07/03/23 07/03/23 07/04/23 Range/Units 16:46 20:07 06:12 Sodium (137-145) mmol/L BUN (9-20) mg/dL Creatinine (0.66-1.25) mg/dL Glucose (74-99) mg/dL POC Glucose (mg/dL) 176 H 204 H 190 H (70-110) mg/dL Magnesium (1.6-2.3) mg/dL 07/04/23 07/04/23 Range/Units 11:14 11:27 Sodium 135 L (137-145) mmol/L BUN 27 H (9-20) mg/dL Creatinine 1.85 H (0.66-1.25) mg/dL Glucose 235 H (74-99) mg/dL POC Glucose (mg/dL) 234 H (70-110) mg/dL Magnesium 1.4 L (1.6-2.3) mg/dL
[2023-07-04] MEDS: DAPAGLIFLOZIN PROPANEDIOL 5 MG TABLET PO SCH (12:51)
[2023-07-04 16:39] LABS: Glucose,Whole Blood 222 mg/dL (70-110)
[2023-07-04] MEDS: MAGNESIUM SULFATE-D5W PMX 1 GM in DEXTROSE/WATER 1 100ML.BAG IVPB SCH ×2 (17:07→18:12)
[2023-07-04] MEDS: metFORMIN 500 MG TAB PO SCH (17:07)
[2023-07-04] MEDS: ATORVASTATIN 40 MG TAB PO SCH (19:55)
[2023-07-04 20:32] LABS: Glucose,Whole Blood 236 mg/dL (70-110)
--- NOTE | 2023-07-04 23:11 | PN ---
PROGRESS NOTE DATE OF SERVICE: 07/04/2023 CHIEF COMPLAINT: CHF and NSTEMI. HISTORY OF PRESENT ILLNESS: This gentleman was to go home yesterday. It is not clear why he was not discharged. PHYSICAL EXAMINATION: CHEST: Clear. CARDIAC: Normal. ABDOMEN: Protuberant. IMPRESSION: 1. Non-ST elevation myocardial infarction. 2. Congestive heart failure. 3. Renal failure. PLAN: No change in management at this time. MMODL / IJN: [id number] /
--- NOTE | 2023-07-04 23:26 | PN ---
PROGRESS NOTE DATE OF SERVICE: 07/03/2023 CHIEF COMPLAINT: NSTEMI. HISTORY OF PRESENT ILLNESS: This gentleman is doing fairly well. Renal function is improving. He has been cleared by Cardiology and he can go home. PHYSICAL EXAMINATION: CHEST: Clear. CARDIAC: Normal. ABDOMEN: Soft, nontender. IMPRESSION: 1. Non-ST elevation myocardial infarction. 2. Coronary artery disease. 3. Congestive heart failure. 4. Renal failure. PLAN: Home today. MMODL / IJN: [id number] /
--- NOTE | 2023-07-04 23:50 | PN ---
PROGRESS NOTE DATE OF SERVICE: 07/02/2023 CHIEF COMPLAINT: NSTEMI. HISTORY OF PRESENT ILLNESS: This gentleman is doing well. He underwent cardiac cath with stenting. He has no pain or shortness of breath. PHYSICAL EXAMINATION: LUNGS: He has good breath sounds bilaterally. CARDIAC: Normal. ABDOMEN: Protuberant soft. IMPRESSION: 1. Non-ST elevation myocardial infarction. 2. Congestive heart failure. 3. Chronic kidney disease. PLAN: Progress activity and continue watching his renal function. MMODL / IJN: [id number] /
--- NOTE | 2023-07-05 00:35 | PN ---
PROGRESS NOTE DATE OF SERVICE: 07/01/2023 CHIEF COMPLAINT: NSTEMI and CHF with renal failure. HISTORY OF PRESENT ILLNESS: This gentleman's renal function has improved slightly. He is going to be going for cardiac cath. PHYSICAL EXAMINATION: CHEST: Clear. CARDIAC: Normal. ABDOMEN: Soft, nontender. IMPRESSION: 1. Non-ST elevation myocardial infarction. 2. Congestive heart failure. 3. Coronary artery disease. 4. Renal failure. PLAN: Continue management with Cardiology. MMODL / IJN: [id number] /
[2023-07-05 06:01] LABS: Glucose,Whole Blood 121 mg/dL (70-110)
[2023-07-05] MEDS: PANTOPRAZOLE 40 MG TABLET PO SCH (06:30)
[2023-07-05] MEDS: metFORMIN 500 MG TAB PO SCH (06:30)
[2023-07-05] MEDS: INSULIN DETEMIR (LEVEMIR) 100 UNIT/ML SYR SQ SCH (06:30)
[2023-07-05] MEDS: carvediloL 12.5 MG TAB PO SCH (06:30)
[2023-07-05] MEDS: SYMBICORT 160-4.5 MCG INHALER INHALATION SCH (07:52)
[2023-07-05] MEDS: NICOTINE 14MG/24HR PATCH TRANSDERM SCH (08:24)
[2023-07-05] MEDS: ISOSORBIDE MONONITRATE ER 30 MG TAB.ER.24H PO SCH (08:25)
[2023-07-05] MEDS: AMIODARONE 200 MG TAB PO SCH (08:25)
[2023-07-05] MEDS: DAPAGLIFLOZIN PROPANEDIOL 5 MG TABLET PO SCH (08:25)
[2023-07-05] MEDS: ASPIRIN 81 MG PO SCH (08:25)
[2023-07-05] MEDS: allopurinoL 300 MG TAB PO SCH (08:25)
[2023-07-05] MEDS: COLCHICINE 0.6 MG EACH PO SCH (08:25)
[2023-07-05] MEDS: DULoxetine HCL 30 MG CAPSULE.DR PO SCH (08:25)
[2023-07-05] MEDS: APIXABAN 5 MG TAB PO SCH (08:25)
[2023-07-05] MEDS: CLOPIDOGREL 75 MG TAB PO SCH (08:25)
[2023-07-05] MEDS: FENOFIBRATE 54 MG TAB PO SCH (08:25)
[2023-07-05] MEDS: SODIUM CHLORIDE 0.9% 1,000 ML in EMPTY BAG 1 BAG IV SCH (08:32)
[2023-07-05] MEDS ORDERED: MAGNESIUM OXIDE 400 MG TAB PO SCH (09:00)
[2023-07-05 11:47] LABS: Glucose,Whole Blood 184 mg/dL (70-110)
--- NOTE | 2023-07-05 11:49 | P.PN ---
Subjective Patient is seen for follow-up for acute kidney injury and top of chronic kidney disease. Baseline creatinine about 1.5-2 mg/dL Status post IV fluids Started on farxiga yesterday. Serum creatinine staying at about 1.7-1.8 mg/dL. Creatinine was 4.79 on admission. Objective - Vital Signs Vital signs: Vital Signs Temp 97.7 F 07/05/23 08:21 Pulse 65 07/05/23 08:21 Resp 20 07/05/23 08:21 BP 123/73 07/05/23 08:21 Pulse Ox 98 07/05/23 08:21 FiO2 Intake & Output 07/04/23 07/05/23 07/05/23 18:59 06:59 18:59 Intake Total 740 110 190 Balance 740 110 190 Intake: IV 20 10 10 0.9 10 Invasive Line 1 20 10 Intake, IV Titration 100 Amount Magnesium Sulfate-D5w Pmx 100 1 gm In Dextrose/Water 1 100ml.bag @ 100 mls/hr IVPB Q1H [facility] Rx#: [id number] Oral 720 180 Other: Voiding Method Toilet Toilet Toilet # Voids 6 2 1 # Bowel Movements 1 - Exam Patient is awake, comfortable, no acute distress Examination of the heart S1 and S2 Examination the lungs bilateral breath sounds are heard Abdomen is soft nontender Examination lower extremities shows no significant edema STIPPLER exam grossly intact - Labs CBC & Chem 7: 06/28/23 13:52 07/04/23 11:14 Labs: Abnormal Lab Results - Last 24 Hours (Table) 07/04/23 07/04/23 07/04/23 Range/Units 11:14 16:38 20:30 Sodium 135 L (137-145) mmol/L BUN 27 H (9-20) mg/dL Creatinine 1.85 H (0.66-1.25) mg/dL Glucose 235 H (74-99) mg/dL POC Glucose (mg/dL) 222 H 236 H (70-110) mg/dL Magnesium 1.4 L (1.6-2.3) mg/dL 07/05/23 Range/Units 05:59 Sodium (137-145) mmol/L BUN (9-20) mg/dL Creatinine (0.66-1.25) mg/dL Glucose (74-99) mg/dL POC Glucose (mg/dL) 121 H (70-110) mg/dL Magnesium (1.6-2.3) mg/dL Assessment and Plan Assessment: . Acute kidney injury secondary to vasomotor nephropathy from hypovolemia. Creatinine 4.79 on admission and 1.85 yesterday. UA benign. No hydronephrosis noted on kidney ultrasound. Right kidney atrophic. 2. Chronic kidney disease stage IIIB with baseline creatinine 1.5-2 secondary to diabetic kidney disease. 3. Chronic diastolic CHF. 4. Diabetes mellitus. 5. Acute coronary syndrome. Cardiology following. Cardiac catheterization done 07/02/2023 shows severe triple-vessel disease. 6. Coronary artery disease status post multiple cardiac stents in the past. 7. Hypomagnesemia from poor intake. On oral magnesium oxide. Plan: Follow-up as outpatient post discharge for CK D Continue with SGLT2i
[2023-07-05 12:20] VITALS: BP 160/95; PULSE 76; RESP 18; TEMP 98.1
--- NOTE | 2023-07-05 15:44 | P.PN ---
Subjective Progress Note Date: 07/05/23 HISTORY OF PRESENT ILLNESS: This is a 52-year-old male with a past medical history significant for coronary artery disease with 4 vessel CABG in 2021 (HONG to LAD, left radial to ramus intermedius, SVG to OM 2, SVG to PDA), paroxysmal atrial fibrillation, chronic kidney disease , hypertension, hyperlipidemia, diabetes and nicotine dependence. Patient follows in the office with Dr. Bello but has not been seen in the office since January 2022. We have been asked to see the patient in consultation for non- STEMI. Patient examined at the bedside. Patient states yesterday he was walking downtown when he began to have chest pain. He states the pain is in the middle of his chest. He reports feeling significantly short of breath as well. He reports feeling diaphoretic and lightheaded. He states this felt similar to his previous heart attack so he came to the emergency room for further evaluation. Patient was found to have elevated troponins and was started on IV heparin. He was also found to have acute renal failure. At the time of examination, patient denies any chest pain or pressure. He denies any shortness of breath. Vital signs are stable. Patient also reports he has not been taking any of his medications as prescribed. He states he had an issue with bedbugs recently and threw out everything in his house including his medications. * EKG reveals sinus mechanism with T wave inversions in high lateral leads * Chest xray negative for acute process * Laboratory data: W BC 9.4. Hemoglobin 15.2. Platelet count 383. Sodium 135. Potassium 4.5. BUN 87. Creatinine 4.79. Troponin 0.100. 1.320. 2.020 * Most recent echocardiogram obtained in May 2023 revealing ejection frac tion 50-55%, severe concentric left ventricular hypertrophy, mild MR, mild TR 06/30/2023 Patient examined this morning at the bedside. Patient denies any further episodes of chest pain or pressure. He denies shortness of breath. He remains on IV heparin. Nephrology is following for acute kidney injury. Creatinine has improved today to 2.75. Echocardiogram completed revealing ejection fraction of 50-55%, with trace TR. 07/01/2023 Patient examined this morning at the bedside. Patient denies any chest pain or pressure. He denies any shortness of breath. He remains on IV heparin. Vital signs are stable. Creatinine improved to 2.1. 07/02/2023 Patient examined this morning at the bedside. Patient denies any chest pain or pressure. He denies shortness of breath. Creatinine has improved today down to 1.85. 07/03/2023 Patient is status post cardiac catheterization with Dr. Bello revealing severe triple vessel coronary artery disease. Patent HONG to LAD. The LAD distal to the HONG anastomosis has intermediate to severe lesion. Patent radial artery graft to ramus intermedius. Occluded SVG to left circumflex. [id number]-sx-hqrfyinf diffuse disease involving SVG to RCA. Medical management was recommended as patient had reached the maximum amount of contrast. Patient examined this morning at the bedside. Patient denies chest pain or pressure. He denies any shortness of breath. Vital signs are stable. Creatinine today 1.75. 07/04/2023 Patient examined this morning at the bedside. Patient denies chest pain or pressure. He denies shortness of breath. Vital signs are stable. Patient is hoping to be discharged home today. 07/05 Patient denies having any chest pain. No chest pressure. No shortness of breath. He states he is planning for discharge today and was told so by his physician. There is a problem with his prescriptions at discharge for which patient's nurse is going to follow-up with her information technology account manager. Blood pressure 123/73, heart rate 65. PHYSICAL EXAM: VITAL SIGNS: Reviewed. GENERAL: Well-developed in no acute distress. HEENT: Head is normocephalic. Pupils are equal, round. Sclerae anicteric. Mucous membranes of the mouth are moist. Neck supple. No JVD or thyromegaly LUNGS: Respirations even and unlabored. Lungs essentially clear to auscultation bilaterally. HEART: Regular rate and rhythm. S1 and S2 heard. ABDOMEN: Soft. Nondistended. Nontender. EXTREMITIES: Normal range of motion. No clubbing or cyanosis. Peripheral pulses intact. No lower extremity edema NEUROLOGIC: Awake and alert. Oriented x 3. ASSESSMENT: Non-STEMI, status post cardiac catheterization as above Acute on chronic kidney disease Coronary artery disease with 4 vessel CABG, 2021 Paroxysmal atrial fibrillation Hypertension Hyperlipidemia Diabetes Nicotine dependence Medication noncompliance PLAN: Continue dual antiplatelet therapy with aspirin and Plavix Continue Eliquis and other cardiac medications including Coreg, amiodarone, and/or, atorvastatin Hold Entresto and Aldactone. Patient is currently stable from a cardiac standpoint and cleared for discharge Nurse practitioner note has been reviewed by physician. Signing provider agrees with the documented findings, assessment, and plan of care. Objective - Vital Signs Vital signs: Vital Signs Temp 98.1 F 07/05/23 12:18 Pulse 76 07/05/23 12:18 Resp 18 07/05/23 12:18 BP 160/95 07/05/23 12:18 Pulse Ox 96 07/05/23 12:18 FiO2 Intake & Output 07/04/23 07/05/23 07/05/23 18:59 06:59 18:59 Intake Total 740 110 190 Balance 740 110 190 Intake: IV 20 10 10 0.9 10 Invasive Line 1 20 10 Intake, IV Titration 100 Amount Magnesium Sulfate-D5w Pmx 100 1 gm In Dextrose/Water 1 100ml.bag @ 100 mls/hr IVPB Q1H [facility] Rx#: [id number] Oral 720 180 Other: Voiding Method Toilet Toilet Toilet # Voids 6 2 1 # Bowel Movements 1 - Labs CBC & Chem 7: 06/28/23 13:52 07/04/23 11:14 Labs: Abnormal Lab Results - Last 24 Hours (Table) 07/04/23 07/04/23 07/05/23 Range/Units 16:38 20:30 05:59 POC Glucose (mg/dL) 222 H 236 H 121 H (70-110) mg/dL 07/05/23 Range/Units 11:46 POC Glucose (mg/dL) 184 H (70-110) mg/dL
--- NOTE | 2023-07-05 22:44 | DS ---
DISCHARGE SUMMARY CHIEF COMPLAINT: Shortness of breath and chest pain. HISTORY OF PRESENT ILLNESS AND PHYSICAL EXAMINATION: Details of this man's history and physical can be found in the initial workup. LABORATORY STUDIES: While he was in the hospital, he had laboratory studies, details of which can be found in the laboratory section of his chart. COURSE IN THE HOSPITAL: After admission, placed on bedrest and started on intravenous fluids and diuretics. Troponins were elevated, and he was seen by Cardiology. His renal function was poor, and he was seen by Nephrology. He eventually improved enough that he could be taken for a cath, where he was found to have coronary artery disease, which was stented. Postoperatively, he did well, and his kidney function slowly improved. He was scheduled to be discharged on the , but apparently, hospital pharmacy was closed. His prescriptions were to be sent to an outside pharmacy. For some reason, he was not discharged until the . He will go home on light activity, regular diet, and his usual medications and will be followed up in the office. FINAL DIAGNOSES: 1. Acute vru-II-ayiwvvcxo myocardial infarction. 2. Bmaun-qv-vdxpxmp congestive heart failure. 3. Coronary artery disease. 4. Atherosclerotic cardiovascular disease. 5. Poorly-controlled diabetes, type 2. 6. Chronic kidney disease with prerenal azotemia. OPERATIONS: Cardiac catheterization and stenting. CONSULTATIONS: Cardiology and Nephrology. CONDITION: He is improved. MMODL / IJN: [id number] /
== END 2023-07-05 15:02 | disposition home or self-care (01) | DRG 190 ==
LOC: EC 13:34 → 3SCARD 15:51
PROVIDERS: ADMIT Family Medicine; ATTEND Family Medicine
PROC: B2111ZZ Fluoroscopy of Multiple Coronary Arteries using Low Osmolar Contrast (ICD-10-PCS; 2023-07-02)
PROC: B2131ZZ Fluoroscopy of Multiple Coronary Artery Bypass Grafts using Low Osmolar Contrast (ICD-10-PCS; 2023-07-02)
PROC: B2181ZZ Fluoroscopy of Left Internal Mammary Bypass Graft using Low Osmolar Contrast (ICD-10-PCS; 2023-07-02)
PROC: B41F1ZZ Fluoroscopy of Right Lower Extremity Arteries using Low Osmolar Contrast (ICD-10-PCS; 2023-07-02)
PROC: 4A023N7 Measurement of Cardiac Sampling and Pressure, Left Heart, Percutaneous Approach (ICD-10-PCS; principal; 2023-07-02 09:25)
DX: I21.4 Non-ST elevation (NSTEMI) myocardial infarction (principal); E11.22 Type 2 diabetes mellitus with diabetic chronic kidney disease; E78.00 Pure hypercholesterolemia, unspecified; E83.42 Hypomagnesemia; E86.1 Hypovolemia; F17.200 Nicotine dependence, unspecified, uncomplicated; F31.9 Bipolar disorder, unspecified; F43.10 Post-traumatic stress disorder, unspecified; I50.33 Acute on chronic diastolic (congestive) heart failure; I13.0 Hypertensive heart and chronic kidney disease with heart failure and stage 1 through stage 4 chronic kidney disease, or unspecified chronic kidney disease; I48.0 Paroxysmal atrial fibrillation; J44.9 Chronic obstructive pulmonary disease, unspecified; K21.9 Gastro-esophageal reflux disease without esophagitis; N17.0 Acute kidney failure with tubular necrosis; I25.10 Atherosclerotic heart disease of native coronary artery without angina pectoris; N18.32 Chronic kidney disease, stage 3b; N26.1 Atrophy of kidney (terminal); I25.2 Old myocardial infarction; Z79.01 Long term (current) use of anticoagulants; Z79.02 Long term (current) use of antithrombotics/antiplatelets; Z79.51 Long term (current) use of inhaled steroids; Z79.84 Long term (current) use of oral hypoglycemic drugs; Z79.899 Other long term (current) drug therapy; Z80.0 Family history of malignant neoplasm of digestive organs; Z82.49 Family history of ischemic heart disease and other diseases of the circulatory system; Z83.3 Family history of diabetes mellitus; Z91.148 Patient's other noncompliance with medication regimen for other reason; Z95.1 Presence of aortocoronary bypass graft; Z95.5 Presence of coronary angioplasty implant and graft; Z88.0 Allergy status to penicillin; Z88.2 Allergy status to sulfonamides
CPT/HCPCS: 36415; 71046; 76770; 80048; 80053; 80061; 81003; 83735; 83880; 84484; 85025; 85610; 85730; 93005; 93306; 93459; 94640; 94760; 96361; 96365; 96376; 99291

== ENCOUNTER 2023-07-27 21:13 | Inpatient (IN) | payer OTHER ==
[2023-07-27 21:52] LABS: Glucose,Whole Blood 263 mg/dL (70-110)
--- NOTE | 2023-07-27 21:56 | ED ---
General Adult HPI - General Source: patient, RN notes reviewed Mode of arrival: ambulatory Limitations: no limitations, language barrier <Veronica Lomas - Last Filed: 07/28/23 04:38> <Geoffrey Cunningham - Last Filed: 08/02/23 23:12> - General Chief complaint: Recheck/Abnormal Lab/Rx Stated complaint: High Blood Sugar Time Seen by Provider: 07/27/23 21:56 - History of Present Illness Initial comments: Patient is a 52-year-old male who presents the emergency department for increased urinary frequency and thirst. Patient with type II diabetic who has not been checking his blood sugar at home. He denies burning with urination, nausea, vomiting (Veronica Lomas) - Related Data Home Medications Medication Instructions Recorded Confirmed Budesonide/Formoterol Fumarate 2 puff INHALATION RT-BID 11/28/21 07/28/23 [Symbicort 160-4.5 Mcg Inhaler] Clopidogrel [Plavix] 75 mg PO DAILY 12/29/21 07/28/23 Empagliflozin [Jardiance] 25 mg PO DAILY 05/23/22 07/28/23 Amiodarone [Cordarone] 200 mg PO DAILY 07/05/22 07/28/23 Spironolactone [Aldactone] 50 mg PO BID 07/05/22 07/28/23 Albuterol Sulfate [Ventolin HFA] 1 puff INHALATION RT-Q6H PRN 06/21/23 07/28/23 Apixaban [Eliquis] 5 mg PO BID 06/21/23 07/28/23 Atorvastatin [Lipitor] 40 mg PO HS 06/21/23 07/28/23 Colchicine 0.3 mg PO BID 06/21/23 07/28/23 DULoxetine HCL [Cymbalta] 30 mg PO BID 06/21/23 07/28/23 Dulaglutide [Trulicity] 1.5 mg SQ Q7D 06/21/23 07/28/23 Fenofibrate [Lofibra] 54 mg PO DAILY 06/21/23 07/28/23 Insulin Glargine,Hum.rec.anlog 25 units SQ HS 06/21/23 07/28/23 [Lantus Solostar Pen] Isosorbide Mononitrate ER [Imdur] 30 mg PO DAILY 06/21/23 07/28/23 Nicotine 14Mg/24Hr Patch [Habitrol] 1 patch TRANSDERM DAILY 06/21/23 07/28/23 Pantoprazole [Protonix] 40 mg PO DAILY 06/21/23 07/28/23 Sacubitril/Valsartan [Entresto 49 1 tab PO BID 06/21/23 07/28/23 mg-51 mg Tablet] allopurinoL [Zyloprim] 300 mg PO DAILY 06/21/23 07/28/23 carvediloL [Coreg] 12.5 mg PO BID 06/21/23 07/28/23 metFORMIN HCL 1,000 mg PO BID 06/21/23 07/28/23 Previous Rx's Medication Instructions Recorded Acetaminophen Tab [Tylenol] 650 mg PO Q6HR PRN tab 06/26/23 Aspirin 81 mg PO DAILY tab 07/03/23 Magnesium Oxide [Mag-Ox] 400 mg PO BID #60 tab 07/04/23 Allergies Allergy/AdvReac Type Severity Reaction Status Date / Time Penicillins Allergy Anaphylaxis Verified 08/02/23 20:45 Sulfa (Sulfonamide Allergy Anaphylaxis Verified 08/02/23 20:45 Antibiotics) Review of Systems ROS Other: All systems not noted in ROS Statement are negative. <Veronica Lomas - Last Filed: 07/28/23 04:38> ROS Other: All systems not noted in ROS Statement are negative. <Geoffrey Cunningham - Last Filed: 08/02/23 23:12> ROS Statement: Those systems with pertinent positive or pertinent negative responses have been documented in the HPI. Past Medical History Past Medical History: Atrial Fibrillation, Asthma, Coronary Artery Disease (CAD), Heart Failure, COPD, Diabetes Mellitus, GERD/Reflux, Hyperlipidemia, Hypertension, Myocardial Infarction ([place]), Renal Disease, Sleep Apnea/CPAP/BIPAP Additional Past Medical History / Comment(s): Pt recently admitted to [facility] on 12/29/21 with CHF. Other hx: NIDDM type II, CKD stage III, chronic anemia, CHLOE without device d/t insurance issues, mild COPD, [place] bilateral ears, gout. Last Myocardial Infarction Date:: 2008 History of Any Multi-Drug Resistant Organisms: MRSA Date of last positivie culture/infection: 10/2020 MDRO Source:: Right eye Past Surgical History: Adenoidectomy, Coronary Bypass/CABG, Heart Catheterization, Heart Catheterization With Stent, Tonsillectomy Additional Past Surgical History / Comment(s): cardiac stents x 5, quad bipass open heart 10/07/2021 Past Anesthesia/Blood Transfusion Reactions: Postoperative Nausea & Vomiting (PONV) Additional Past Anesthesia/Blood Transfusion Reaction / Comment(s): Has not had this reaction since he was 9 years old. Date of Last Stent Placement:: 2008 Past Psychological History: ADD/ADHD, Anxiety, Bipolar, Depression, PTSD Smoking Status: Current every day smoker Past Alcohol Use History: None Reported Past Drug Use History: None Reported - Past Family History Father Family Medical History: Cancer, Coronary Artery Disease (CAD), Myocardial Infarction ([place]) Additional Family Medical History / Comment(s): at age 68 from mesothelioma, diagnosis of heart disease age of 60 Mother Family Medical History: Cancer, Coronary Artery Disease (CAD), Diabetes Mellitus, Liver Disease, Myocardial Infarction ([place]) Additional Family Medical History / Comment(s): from liver cancer, diagnosed with heart disease before the age of 60 <Veronica Lomas - Last Filed: 07/28/23 04:38> General Exam Limitations: no limitations <Veronica Lomas - Last Filed: 07/28/23 04:38> General appearance: alert, in no apparent distress Head exam: Present: atraumatic, normocephalic Eye exam: Present: normal appearance. Absent: scleral icterus, conjunctival injection Neck exam: Present: normal inspection, full ROM Respiratory exam: Present: normal lung sounds bilaterally. Absent: respiratory distress, wheezes, rales Cardiovascular Exam: Present: regular rate, normal rhythm, normal heart sounds. Absent: systolic murmur, diastolic murmur, rubs, gallop GI/Abdominal exam: Present: soft. Absent: distended, tenderness, guarding, rebound, rigid, mass Extremities exam: Present: normal inspection, normal capillary refill. Absent: pedal edema, calf tenderness Back exam: Present: normal inspection. Absent: CVA tenderness (R), CVA tenderness (L) Neurological exam: Present: alert Skin exam: Present: warm, dry, intact, normal color. Absent: rash <Geoffrey Cunningham - Last Filed: 08/02/23 23:12> - General Exam Comments Initial Comments: Visual Physical Exam Vital signs reviewed General: Well-appearing, nontoxic, no acute distress. Head: Normocephalic, atraumatic Eyes: PERRLA, EOMI ENT: Airway patent Chest: Nonlabored breathing Skin: No visual rash, normal skin tone Neuro: Alert and oriented 3 Musculoskeletal: No gross abnormalities (Veronica Lomas) Course Vital Signs 07/27/23 07/28/23 07/28/23 21:48 01:52 06:05 Temperature 98.4 F Pulse Rate 114 H 74 83 Respiratory 16 18 18 Rate Blood Pressure 150/82 168/84 119/52 O2 Sat by Pulse 97 98 95 Oximetry 07/28/23 07:29 Temperature 98.2 F Pulse Rate 71 Respiratory 18 Rate Blood Pressure 123/79 O2 Sat by Pulse 93 L Oximetry Medical Decision Making - Lab Data Result diagrams: 07/27/23 22:33 07/27/23 22:33 <Veronica Lomas - Last Filed: 07/28/23 04:38> - Lab Data Result diagrams: 07/27/23 22:33 07/30/23 07:13 <Geoffrey Cunningham - Last Filed: 08/02/23 23:12> - Medical Decision Making I performed the QuickNote portion of this chart - Veronica Lomas PA-C (Veronica Lomas) This patient is 52-year-old man with history of diabetes, presenting to have evaluation, and is found to have significantly increased BUN/creatinine versus his baseline. Given this finding, patient will be admitted to have nephrology consultation. Was pt. sent in by a medical professional or institution (AMINAH Talamantes, SENIOR MEDICAL WRITER, urgent care, hospital, or residential...) When possible be specific @ -[No] Did you speak to anyone other than the patient for history (EMS, parent, family, police, friend...)? What history was obtained from this source @ -[No] Did you review nursing and triage notes (agree or disagree)? Why? @ -[I reviewed and agree with nursing and triage notes] Were old charts reviewed (outside hosp., previous admission, EMS record, old EKG, old radiological studies, urgent care reports/EKG's, residential records)? Report findings @ -[Yes old charts were reviewed] Differential Diagnosis (chest pain, altered mental status, abdominal pain women, abdominal pain men, vaginal bleeding, weakness, fever, dyspnea, syncope, headache, dizziness, GI bleed, back pain, seizure, CVA, palpatations, mental health, musculoskeletal)? @ -[Differential diagnosis for patient's frequency and thirst includes acute dehydration, poorly controlled diabetes, primary kidney disorder, other endocrine abnormality, adverse medication reaction, other light abnormality. EKG interpreted by me (3pts min.). @ -[As above] X-rays interpreted by me (1pt min.). @ -[None done] CT interpreted by me (1pt min.). @ -[None done] U/S interpreted by me (1pt. min.). @ -[None done] What testing was considered but not performed or refused? (CT, X-rays, U/S, labs)? Why? @ -[None] What meds were considered but not given or refused? Why? @ -[None] Did you discuss the management of the patient with other professionals (professionals i.e. , PA, SENIOR MEDICAL WRITER, lab, RT, psych nurse, hospital social worker, monitoring coordinator, teacher, aeronautical engineering officer, employment case manager)? Give summary @ -[Case discussed with admitting physician and treatment recommendations are incorporated Was smoking cessation discussed for >3mins.? @ -[No] Was critical care preformed (if so, how long)? @ -[No] Were there social determinants of health that impacted care today? How? (Homelessness, low income, unemployed, alcoholism, drug addiction, transportation, low edu. Level, literacy, decrease access to med. care, prison, rehab)? @ -[No] Was there de-escalation of care discussed even if they declined (Discuss DNR or withdrawal of care, Hospice)? DNR status @ -[No] What co-morbidities impacted this encounter? (DM, HTN, Smoking, COPD, CAD, Cancer, CVA, ARF, Chemo, Hep., AIDS, mental health diagnosis, sleep apnea, morb id obesity)? @ -[None] Was patient admitted / discharged? Hospital course, mention meds given and route, prescriptions, significant lab abnormalities, going to OR and other pertinent info. @ -[Patient will be admitted to have better control of blood sugar, hydration, nephrology consultation Undiagnosed new problem with uncertain prognosis? @ -[No] Drug Therapy requiring intensive monitoring for toxicity (Heparin, Nitro, Insulin, Cardizem)? @ -[No] Were any procedures done? @ -[No] Diagnosis/symptom? @ -[Acute kidney injury, suspect due to poorly controlled diabetes Hyperglycemia due to poorly controlled diabetes Acute, or Chronic, or Acute on Chronic? @ -[Acute on chronic Uncomplicated (without systemic symptoms) or Complicated (systemic symptoms)? @ -Uncomplicated Side effects of treatment? @ -[No] Exacerbation, Progression, or Severe Exacerbation? @ -[No] Poses a threat to life or bodily function? How? (Chest pain, [place], [place], pneumonia, PE, COPD, DKA, ARF, appy, cholecystitis, CVA, Diverticulitis, Homicidal, Suicidal, threat to staff... and all critical care pts) @ -[No] (Geoffrey Cunningham) - Lab Data Lab Results 07/27/23 07/27/23 07/27/23 Range/Units 21:51 21:52 22:33 WBC 8.6 (3.8-10.6) k/uL RBC 4.62 (4.30-5.90) m/uL Hgb 13.5 (13.0-17.5) gm/dL Hct 42.5 (39.0-53.0) % MCV 92.0 (80.0-100.0) fL MCH 29.3 (25.0-35.0) pg MCHC 31.8 (31.0-37.0) g/dL RDW 15.8 H (11.5-15.5) % Plt Count 253 (150-450) k/uL MPV 7.4 Neutrophils % 78 % Lymphocytes % 14 % Monocytes % 5 % Eosinophils % 2 % Basophils % 1 % Neutrophils # 6.7 (1.3-7.7) k/uL Lymphocytes # 1.2 (1.0-4.8) k/uL Monocytes # 0.4 (0-1.0) k/uL Eosinophils # 0.2 (0-0.7) k/uL Basophils # 0.1 (0-0.2) k/uL Hypochromasia Slight Sodium (137-145) mmol/L Potassium (3.5-5.1) mmol/L Chloride (98-107) mmol/L Carbon Dioxide (22-30) mmol/L Anion Gap mmol/L BUN (9-20) mg/dL Creatinine (0.66-1.25) mg/dL Est GFR (CKD-EPI)AfAm (>60 ml/min/1.73 sqM) Est GFR (CKD-EPI)NonAf (>60 ml/min/1.73 sqM) Glucose (74-99) mg/dL POC Glucose (mg/dL) 263 H (70-110) mg/dL POC Glu Community Liaison Officer ID Dominique Rich Calcium (8.4-10.2) mg/dL Total Bilirubin (0.2-1.3) mg/dL AST (17-59) U/L ALT (4-49) U/L Alkaline Phosphatase (38-126) U/L Total Protein (6.3-8.2) g/dL Albumin (3.5-5.0) g/dL Urine Color Yellow Urine Appearance Clear (Clear) Urine pH 5.5 (5.0-8.0) Ur Specific [place] 1.020 (1.001-1.035) Urine Protein 1+ H (Negative) Urine Glucose (UA) 4+ H (Negative) Urine Ketones Negative (Negative) Urine Blood Negative (Negative) Urine Nitrite Negative (Negative) Urine Bilirubin Negative (Negative) Urine Urobilinogen 0.2 (<2.0) mg/dL Ur Leukocyte Esterase Negative (Negative) Urine RBC <1 (0-5) /hpf Urine WBC 1 (0-5) /hpf Amorphous Sediment Rare H (None) /hpf Hyaline Casts 8 H (0-2) /lpf Urine Mucus Rare H (None) /hpf Acetone, Qual (Negative) 07/27/23 07/28/23 Range/Units 22:33 03:24 WBC (3.8-10.6) k/uL RBC (4.30-5.90) m/uL Hgb (13.0-17.5) gm/dL Hct (39.0-53.0) % MCV (80.0-100.0) fL MCH (25.0-35.0) pg MCHC (31.0-37.0) g/dL RDW (11.5-15.5) % Plt Count (150-450) k/uL MPV Neutrophils % % Lymphocytes % % Monocytes % % Eosinophils % % Basophils % % Neutrophils # (1.3-7.7) k/uL Lymphocytes # (1.0-4.8) k/uL Monocytes # (0-1.0) k/uL Eosinophils # (0-0.7) k/uL Basophils # (0-0.2) k/uL Hypochromasia Sodium 137 (137-145) mmol/L Potassium 4.6 (3.5-5.1) mmol/L Chloride 104 (98-107) mmol/L Carbon Dioxide 21 L (22-30) mmol/L Anion Gap 12 mmol/L BUN 39 H (9-20) mg/dL Creatinine 3.08 H (0.66-1.25) mg/dL Est GFR (CKD-EPI)AfAm 25 (>60 ml/min/1.73 sqM) Est GFR (CKD-EPI)NonAf 22 (>60 ml/min/1.73 sqM) Glucose 266 H (74-99) mg/dL POC Glucose (mg/dL) 149 H (70-110) mg/dL POC Glu Community Liaison Officer ID Stephanie Miles Calcium 9.9 (8.4-10.2) mg/dL Total Bilirubin 0.6 (0.2-1.3) mg/dL AST 34 (17-59) U/L ALT 47 (4-49) U/L Alkaline Phosphatase 96 (38-126) U/L Total Protein 7.6 (6.3-8.2) g/dL Albumin 4.5 (3.5-5.0) g/dL Urine Color Urine Appearance (Clear) Urine pH (5.0-8.0) Ur Specific [place] (1.001-1.035) Urine Protein (Negative) Urine Glucose (UA) (Negative) Urine Ketones (Negative) Urine Blood (Negative) Urine Nitrite (Negative) Urine Bilirubin (Negative) Urine Urobilinogen (<2.0) mg/dL Ur Leukocyte Esterase (Negative) Urine RBC (0-5) /hpf Urine WBC (0-5) /hpf Amorphous Sediment (None) /hpf Hyaline Casts (0-2) /lpf Urine Mucus (None) /hpf Acetone, Qual Negative (Negative) Disposition Is patient prescribed a controlled substance at d/c from ED?: No <Veronica Lomas - Last Filed: 07/28/23 04:38> <Geoffrey Cunningham - Last Filed: 08/02/23 23:12> Clinical Impression: Hyperglycemia due to diabetes mellitus, Acute kidney injury Disposition: ADMITTED IP TO THIS HOSP Condition: Fair
[2023-07-27 22:50] LABS: ALT 47 U/L (4-49); AST 34 U/L (17-59); African American GFR (CKD) 25 (>60 ml/min/1.73 sqM); Albumin 4.5 g/dL (3.5-5.0); Alkaline Phosphatase 96 U/L (38-126); Anion Gap 12 mmol/L; Blood Urea Nitrogen 39 mg/dL (9-20); Calcium 9.9 mg/dL (8.4-10.2); Carbon Dioxide 21 mmol/L (22-30); Chloride 104 mmol/L (98-107); Glucose 266 mg/dL (74-99); Non-African American GFR(CKD) 22 (>60 ml/min/1.73 sqM); Potassium 4.6 mmol/L (3.5-5.1); Sodium 137 mmol/L (137-145); Total Bilirubin 0.6 mg/dL (0.2-1.3); Total Protein 7.6 g/dL (6.3-8.2)
[2023-07-27 22:58] LABS: Basophils # (A) 0.1 k/uL (0-0.2); Basophils % (A) 1 %; Eosinophils # (A) 0.2 k/uL (0-0.7); Eosinophils % (A) 2 %; HCT 42.5 % (39.0-53.0); HGB 13.5 gm/dL (13.0-17.5); Hypochromasia Slight; Lymphocytes # (A) 1.2 k/uL (1.0-4.8); Lymphocytes % (A) 14 %; MCH 29.3 pg (25.0-35.0); MCHC 31.8 g/dL (31.0-37.0); Mean Platelet Volume 7.4; Monocytes # (A) 0.4 k/uL (0-1.0); Monocytes % (A) 5 %; Neutrophils # (A) 6.7 k/uL (1.3-7.7); Neutrophils % (A) 78 %; Platelet Count 253 k/uL (150-450); RBC 4.62 m/uL (4.30-5.90); RDW 15.8 % (11.5-15.5); WBC 8.6 k/uL (3.8-10.6)
[2023-07-27 23:14] LABS: Amorphous Sediment,Urine Rare /hpf; Hyaline Casts,Urine 8 /lpf (0-2); Mucus,Urine Rare /hpf; RBC,Urine <1 /hpf (0-5); WBC,Urine 1 /hpf (0-5)
[2023-07-27 23:17] LABS: Appearance,Urine Clear (Clear); Bilirubin,Urine Negative (Negative); Color,Urine Yellow; Glucose,Urine (UA) 4+ (Negative); Ketones,Urine Negative (Negative); PH, Urine 5.5 (5.0-8.0); Protein,Urine 1+ (Negative)
[2023-07-27 23:18] LABS: Blood,Urine Negative (Negative); Leukocyte Esterase,Urine Negative (Negative); Nitrite,Urine Negative (Negative); Urobilinogen,Urine 0.2 mg/dL (<2.0)
[2023-07-28] MEDS ORDERED: SODIUM CHLORIDE 0.9% 1,000 ML IV ONE (02:54)
[2023-07-28] MEDS ORDERED: INSULIN REGULAR 100 UNIT/ML VIAL (IV) SQ STA (02:54)
[2023-07-28 03:26] LABS: Glucose,Whole Blood 149 mg/dL (70-110)
[2023-07-28] MEDS ORDERED: MAG HYDROX/AL HYDROX/SIMETH 30 ML CUP PO PRN (05:02)
[2023-07-28] MEDS ORDERED: NALOXONE 0.4 MG/ML 1 ML VIAL IV PRN (05:02)
[2023-07-28] MEDS ORDERED: ACETAMINOPHEN TAB 325 MG TAB PO PRN ×2 (05:02→13:27)
[2023-07-28] MEDS ORDERED: ONDANSETRON 4 MG/2 ML VIAL IVP PRN (05:02)
[2023-07-28] MEDS ORDERED: ALBUTEROL NEBULIZED 2.5 MG/3 ML INHALATION PRN (05:05)
[2023-07-28] MEDS: SODIUM CHLORIDE 0.9% 1,000 ML IV SCH (05:36)
[2023-07-28] MEDS: PANTOPRAZOLE 40 MG TABLET PO SCH (06:52)
[2023-07-28] MEDS: SYMBICORT 160-4.5 MCG INHALER INHALATION SCH ×2 (08:50→19:41)
[2023-07-28] MEDS ORDERED: metFORMIN 500 MG TAB PO SCH (09:00)
[2023-07-28] MEDS ORDERED: FAMOTIDINE 20 MG TAB PO SCH (09:00)
[2023-07-28] MEDS ORDERED: SPIRONOLACTONE 25 MG TAB PO SCH (09:00)
[2023-07-28] MEDS ORDERED: DAPAGLIFLOZIN PROPANEDIOL 10 MG TABLET PO SCH (09:00)
[2023-07-28] MEDS: ISOSORBIDE MONONITRATE ER 30 MG TAB.ER.24H PO SCH (09:22)
[2023-07-28] MEDS: carvediloL 12.5 MG TAB PO SCH ×2 (09:22→20:39)
[2023-07-28] MEDS: APIXABAN 5 MG TAB PO SCH ×2 (09:23→20:39)
[2023-07-28] MEDS: ASPIRIN 81 MG PO SCH (09:24)
[2023-07-28] MEDS: FAMOTIDINE 20 MG TAB PO SCH (09:24)
[2023-07-28] MEDS: MAGNESIUM OXIDE 400 MG TAB PO SCH ×2 (09:24→20:39)
[2023-07-28] MEDS: CLOPIDOGREL 75 MG TAB PO SCH (09:24)
[2023-07-28] MEDS: SACUBITRIL/VALSARTAN 49 MG-51 MG TABLET PO SCH (09:54)
--- NOTE | 2023-07-28 11:59 | P.NPCON ---
History of Present Illness - Reason for Consult acute renal failure, chronic renal failure - History of Present Illness Reason for consultation: Acute kidney injury on chronic kidney disease History of present illness: Patient is a 52-year-old male seen in renal consultation for acute kidney injury on chronic kidney disease. Patient has chronic kidney disease stage IIIB with baseline creatinine in the range of 1.8-2. Etiology is diabetic kidney disease. Patient came to the hospital due to urinary frequency and increased thirst. Patient states he ran out of strips to check his blood sugar at home but was concerned about his blood sugars being high. Patient's glucose on admission was 266. Patient denies chest pain or shortness of breath. No fever or chills. He did have diarrhea a few days ago but currently resolved. Patient has history of coronary disease with prior stenting as well as CABG. He denies family history of renal disease. He denies use of nonsteroidals. No vomiting or diarrhea. Oral intake has been fair. Creatinine was 3.08 on admission. He is currently receiving IV fluids. He is also on farxiga, aldactone, entresto. Patient has history of diastolic CHF. Hemodynamically stable. Denies gross hematuria or dysuria. No fever or chills. Vital signs are stable. General: No acute distress. HEENT: Head exam is unremarkable. LUNGS: No audible rhonchi or wheezes. HEART: Rate and Rhythm are regular. ABDOMEN: Nontender. EXTREMITITES: No edema. Past Medical History Past Medical History: Atrial Fibrillation, Asthma, Coronary Artery Disease (CAD), Heart Failure, COPD, Diabetes Mellitus, GERD/Reflux, Hyperlipidemia, Hypertension, Myocardial Infarction ([place]), Renal Disease, Sleep Apnea/CPAP/BIPAP Additional Past Medical History / Comment(s): Pt recently admitted to [facility] on 12/29/21 with CHF. Other hx: NIDDM type II, CKD stage III, chronic anemia, CHLOE without device d/t insurance issues, mild COPD, [place] bilateral ears, gout. Last Myocardial Infarction Date:: 2008 History of Any Multi-Drug Resistant Organisms: MRSA Date of last positivie culture/infection: 10/2020 MDRO Source:: Right eye Past Surgical History: Adenoidectomy, Coronary Bypass/CABG, Heart Catheterizatio n, Heart Catheterization With Stent, Tonsillectomy Additional Past Surgical History / Comment(s): cardiac stents x 5, quad bipass open heart 10/07/2021 Past Anesthesia/Blood Transfusion Reactions: Postoperative Nausea & Vomiting (PONV) Additional Past Anesthesia/Blood Transfusion Reaction / Comment(s): Has not had this reaction since he was 9 years old. Date of Last Stent Placement:: 2008 Past Psychological History: ADD/ADHD, Anxiety, Bipolar, Depression, PTSD Smoking Status: Current every day smoker Past Alcohol Use History: None Reported Past Drug Use History: None Reported - Past Family History Father Family Medical History: Cancer, Coronary Artery Disease (CAD), Myocardial Infarction ([place]) Additional Family Medical History / Comment(s): at age 68 from mesothelioma, diagnosis of heart disease age of 60 Mother Family Medical History: Cancer, Coronary Artery Disease (CAD), Diabetes Mellitus, Liver Disease, Myocardial Infarction ([place]) Additional Family Medical History / Comment(s): from liver cancer, diagnosed with heart disease before the age of 60 Medications and Allergies Home Medications Medication Instructions Recorded Confirmed Type Budesonide/Formoterol Fumarate 2 puff INHALATION RT-BID 11/28/21 07/28/23 History [Symbicort 160-4.5 Mcg Inhaler] Clopidogrel [Plavix] 75 mg PO DAILY 12/29/21 07/28/23 History Empagliflozin [Jardiance] 25 mg PO DAILY 05/23/22 07/28/23 History Amiodarone [Cordarone] 200 mg PO DAILY 07/05/22 07/28/23 History Spironolactone [Aldactone] 50 mg PO BID 07/05/22 07/28/23 History Albuterol Sulfate [Ventolin HFA] 1 puff INHALATION RT-Q6H PRN 06/21/23 07/28/23 History Apixaban [Eliquis] 5 mg PO BID 06/21/23 07/28/23 History Atorvastatin [Lipitor] 40 mg PO HS 06/21/23 07/28/23 History Colchicine 0.3 mg PO BID 06/21/23 07/28/23 History DULoxetine HCL [Cymbalta] 30 mg PO BID 06/21/23 07/28/23 History Dulaglutide [Trulicity] 1.5 mg SQ Q7D 06/21/23 07/28/23 History Fenofibrate [Lofibra] 54 mg PO DAILY 06/21/23 07/28/23 History Insulin Glargine,Hum.rec.anlog 25 units SQ HS 06/21/23 07/28/23 History [Lantus Solostar Pen] Isosorbide Mononitrate ER [Imdur] 30 mg PO DAILY 06/21/23 07/28/23 History Nicotine 14Mg/24Hr Patch [Habitrol] 1 patch TRANSDERM DAILY 06/21/23 07/28/23 History Pantoprazole [Protonix] 40 mg PO DAILY 06/21/23 07/28/23 History Sacubitril/Valsartan [Entresto 49 1 tab PO BID 06/21/23 07/28/23 History mg-51 mg Tablet] allopurinoL [Zyloprim] 300 mg PO DAILY 06/21/23 07/28/23 History carvediloL [Coreg] 12.5 mg PO BID 06/21/23 07/28/23 History metFORMIN HCL 1,000 mg PO BID 06/21/23 07/28/23 History Acetaminophen Tab [Tylenol] 650 mg PO Q6HR PRN tab 06/26/23 07/28/23 Rx Aspirin 81 mg PO DAILY tab 07/03/23 07/28/23 Rx Magnesium Oxide [Mag-Ox] 400 mg PO BID #60 tab 07/04/23 07/28/23 Rx Allergies Allergy/AdvReac Type Severity Reaction Status Date / Time Penicillins Allergy Anaphylaxis Verified 06/28/23 16:53 Sulfa (Sulfonamide Allergy Anaphylaxis Verified 06/28/23 16:53 Antibiotics) Physical Exam Vitals: Vital Signs Temp Pulse Resp BP Pulse Ox 07/28/23 07:29 98.2 F 71 18 123/79 93 L 07/28/23 06:05 83 18 119/52 95 07/28/23 01:52 74 18 168/84 98 07/27/23 21:48 98.4 F 114 H 16 150/82 97 Intake and Output 07/27/23 07/28/23 07/28/23 22:59 06:59 14:59 Other: Weight 127.006 kg Results - Lab Results Most recent lab results Calcium 9.9 mg/dL (8.4-10.2) 07/27/23 22:33 07/27/23 22:33 07/27/23 22:33 Assessment and Plan Plan: Assessment: 1. Acute kidney injury secondary to vasomotor nephropathy from antihypertensives and diuretics, hypovolemia. Creatinine 3.08 on admission. Ul trasound from 06/29/2023 showed atrophic right kidney with no hydronephrosis. UA with 1+ protein. 2. Chronic kidney disease stage IIIB with baseline creatinine 1.8-2 secondary to diabetic kidney disease. 3. Diabetes mellitus. Excellent 4. Coronary artery disease with prior stenting and CABG. 5. Metabolic acidosis secondary to acute kidney injury. 6. Chronic diastolic CHF. Plan: Maintain IV fluids. Hold diuretics and entresto. Also hold [id number] for now. Avoid nephrotoxins. Continue to monitor renal function and urine output. Check bladder scan to rule out urinary retention. Thank you for the consultation. I will continue to follow the patient with you during his hospital stay.
[2023-07-28] MEDS ORDERED: PATIENT'S OWN (Dulaglutide [Trulicity] 1.5 MG/0.5 ML Each) SQ SCH (13:30)
[2023-07-28 19:44] LABS: Glucose,Whole Blood 187 mg/dL (70-110)
[2023-07-28] MEDS: INSULIN DETEMIR (LEVEMIR) 100 UNIT/ML SYR SQ SCH (20:38)
[2023-07-28] MEDS: ATORVASTATIN 40 MG TAB PO SCH (20:39)
[2023-07-28] MEDS: COLCHICINE 0.6 MG EACH PO SCH (20:52)
[2023-07-28] MEDS: DULoxetine HCL 30 MG CAPSULE.DR PO SCH (20:53)
--- NOTE | 2023-07-29 01:08 | HP ---
HISTORY AND PHYSICAL CHIEF COMPLAINT: Excessive thirst. HISTORY OF PRESENT ILLNESS: This gentleman when he knows that he was very thirsty and lightheaded. He thought his blood sugar was up and came to the emergency room where his blood sugar was only 266 and his GFR was 22. BUN was 39 with a creatinine of 3.08. He does have a history of renal failure and congestive heart failure. REVIEW OF SYSTEMS: Other than his thirst, he has no complaints. He has had no nausea, pruritus, chest pain, shortness of breath, abdominal pain, nausea, vomiting, etc. Past medical history, family history and personal and social histories can be found from his recent admitting and discharge summaries. PHYSICAL EXAMINATION: VITAL SIGNS: Blood pressure is 136/85 with a pulse of 70, respirations of 32, and he is afebrile. GENERAL: He appeared to be obese, in no acute distress. SKIN: Skin color is normal. Skin is warm, dry. LYMPHATICS: Lymph nodes are not enlarged. HEAD, EARS, EYES, NOSE, MOUTH AND THROAT: Normal. NECK: Neck veins not distended. CHEST: Clear. CARDIAC: Normal. ABDOMEN: Soft, nontender. EXTREMITIES: Normal. IMPRESSION: 1. Acute kidney injury. 2. Chronic kidney disease. 3. Uncontrolled insulin-dependent diabetes mellitus. 4. Coronary artery disease. 5. Congestive heart failure. PLAN: 1. Bedrest. 2. IV fluids. 3. Nephrology consult. MMCARLOS / NANCIE: [id number] /
[2023-07-29] MEDS: SODIUM CHLORIDE 0.9% 1,000 ML IV SCH (02:15)
[2023-07-29 05:02] LABS: Glucose,Whole Blood 235 mg/dL (70-110)
[2023-07-29] MEDS: PANTOPRAZOLE 40 MG TABLET PO SCH (06:07)
[2023-07-29] MEDS: SYMBICORT 160-4.5 MCG INHALER INHALATION SCH ×2 (08:36→19:42)
[2023-07-29] MEDS: CLOPIDOGREL 75 MG TAB PO SCH (09:43)
[2023-07-29] MEDS: MAGNESIUM OXIDE 400 MG TAB PO SCH ×2 (09:43→20:43)
[2023-07-29] MEDS: ASPIRIN 81 MG PO SCH (09:43)
[2023-07-29] MEDS: AMIODARONE 200 MG TAB PO SCH (09:43)
[2023-07-29] MEDS: APIXABAN 5 MG TAB PO SCH ×2 (09:44→20:42)
[2023-07-29] MEDS: FAMOTIDINE 20 MG TAB PO SCH (09:44)
[2023-07-29] MEDS: carvediloL 12.5 MG TAB PO SCH ×2 (09:44→20:43)
[2023-07-29] MEDS: FENOFIBRATE 54 MG TAB PO SCH (09:44)
[2023-07-29] MEDS: ISOSORBIDE MONONITRATE ER 30 MG TAB.ER.24H PO SCH (09:45)
[2023-07-29] MEDS: DULoxetine HCL 30 MG CAPSULE.DR PO SCH ×2 (09:45→20:43)
[2023-07-29] MEDS: NICOTINE 14MG/24HR PATCH TRANSDERM SCH (09:45)
[2023-07-29] MEDS: COLCHICINE 0.6 MG EACH PO SCH ×2 (09:45→20:43)
[2023-07-29 11:18] LABS: BUN/Creat Ratio 14.12 Ratio (12.00-20.00); Blood Urea Nitrogen 35.3 mg/dL (9.0-27.0); Calcium 9.1 mg/dL (8.7-10.3); Carbon Dioxide 22.9 mmol/L (21.6-31.8); Chloride 104 mmol/L (96-109); Glucose 201 mg/dL (70-110); Magnesium 2.1 mg/dL (1.5-2.4); Potassium 4.7 mmol/L (3.5-5.5); Sodium 137 mmol/L (135-145)
[2023-07-29 11:24] LABS: Glucose,Whole Blood 176 mg/dL (70-110)
--- NOTE | 2023-07-29 11:43 | P.PN ---
Subjective Patient is seen in follow-up for acute kidney injury on chronic kidney disease. Renal function improving. Diuretics held. Oral intake is good. No vomiting or diarrhea. Hemodynamically stable. Vital signs are stable. General: No acute distress. HEENT: Head exam is unremarkable. LUNGS: No audible rhonchi or wheezes. HEART: Rate and Rhythm are regular. ABDOMEN: Nontender. EXTREMITITES: No edema. Objective - Vital Signs Vital signs: Vital Signs Temp 98.2 F 07/29/23 07:31 Pulse 64 07/29/23 08:55 Resp 16 07/29/23 08:55 BP 115/71 07/29/23 07:31 Pulse Ox 95 07/29/23 07:31 FiO2 Intake & Output 07/28/23 07/29/23 07/29/23 18:59 06:59 18:59 Intake Total 120 Balance 120 Weight 127.006 kg Intake: Oral 120 Other: # Voids 2 - Labs CBC & Chem 7: 07/27/23 22:33 07/29/23 06:41 Labs: Abnormal Lab Results - Last 24 Hours (Table) 07/28/23 07/29/23 07/29/23 Range/Units 19:34 05:01 06:41 BUN 35.3 H (9.0-27.0) mg/dL Creatinine 2.5 H (0.6-1.5) mg/dL Est GFR (CKD-EPI) 30 L (>=60) Glucose 201 H (70-110) mg/dL POC Glucose (mg/dL) 187 H 235 H (70-110) mg/dL 07/29/23 Range/Units 11:20 BUN (9.0-27.0) mg/dL Creatinine (0.6-1.5) mg/dL Est GFR (CKD-EPI) (>=60) Glucose (70-110) mg/dL POC Glucose (mg/dL) 176 H (70-110) mg/dL Assessment and Plan Plan: Assessment: 1. Acute kidney injury secondary to vasomotor nephropathy from antihypertensives and diuretics, hypovolemia. Creatinine 3.08 on admission - 2.5 today. Ultrasound from 06/29/2023 showed atrophic right kidney with no hydronephrosis. UA with 1+ protein. 2. Chronic kidney disease stage IIIB with baseline creatinine 1.8-2 secondary to diabetic kidney disease. 3. Diabetes mellitus. 4. Coronary artery disease with prior stenting and CABG. 5. Metabolic acidosis secondary to acute kidney injury. Better. 6. Chronic diastolic CHF. Plan: Currently off IV fluids. Oral intake is good. Hold diuretics and entresto. Also hold [id number] for now. Avoid nephrotoxins. Continue to monitor renal function and urine output.
[2023-07-29 16:23] LABS: Glucose,Whole Blood 175 mg/dL (70-110)
[2023-07-29 19:23] LABS: Glucose,Whole Blood 210 mg/dL (70-110)
[2023-07-29 19:35] LABS: Appearance,Urine Clear (Clear); Bilirubin,Urine Negative (Negative); Blood,Urine Negative (Negative); Color,Urine Colorless; Glucose,Urine (UA) 4+ (Negative); Ketones,Urine Negative (Negative); Leukocyte Esterase,Urine Negative (Negative); Nitrite,Urine Negative (Negative); Protein,Urine Negative (Negative); Urobilinogen,Urine <2.0 mg/dL (<2.0)
[2023-07-29] MEDS: INSULIN DETEMIR (LEVEMIR) 100 UNIT/ML SYR SQ SCH (20:42)
[2023-07-29] MEDS: ATORVASTATIN 40 MG TAB PO SCH (20:43)
--- NOTE | 2023-07-29 22:56 | PN ---
PROGRESS NOTE DATE OF SERVICE: 07/29/2023 CHIEF COMPLAINT: Acute kidney for failure. HISTORY OF PRESENT ILLNESS: This gentleman is doing fairly well and he is being evaluated by Nephrology. He has had no shortness of breath. PHYSICAL EXAMINATION: Chest: Quite clear. CARDIAC: Normal. ABDOMEN: Protuberant, soft and nontender. EXTREMITIES: Normal. IMPRESSION: 1. Acute kidney injury. 2. Chronic kidney disease. 3. Congestive heart failure. PLAN: Continue with further evaluation and continue to monitor his GFR. MMODL / IJN: [id number] /
[2023-07-30] MEDS: SODIUM CHLORIDE 0.9% 1,000 ML IV SCH
[2023-07-30 05:47] LABS: Glucose,Whole Blood 199 mg/dL (70-110)
[2023-07-30] MEDS: PANTOPRAZOLE 40 MG TABLET PO SCH (06:08)
[2023-07-30] MEDS: SYMBICORT 160-4.5 MCG INHALER INHALATION SCH ×2 (08:02→20:21)
[2023-07-30] MEDS: COLCHICINE 0.6 MG EACH PO SCH ×2 (08:19→20:48)
[2023-07-30] MEDS: NICOTINE 14MG/24HR PATCH TRANSDERM SCH (08:19)
[2023-07-30] MEDS: MAGNESIUM OXIDE 400 MG TAB PO SCH ×2 (08:20→20:48)
[2023-07-30] MEDS: carvediloL 12.5 MG TAB PO SCH ×2 (08:20→20:49)
[2023-07-30] MEDS: APIXABAN 5 MG TAB PO SCH ×2 (08:20→20:48)
[2023-07-30] MEDS: ASPIRIN 81 MG PO SCH (08:20)
[2023-07-30] MEDS: CLOPIDOGREL 75 MG TAB PO SCH (08:21)
[2023-07-30] MEDS: AMIODARONE 200 MG TAB PO SCH (08:21)
[2023-07-30] MEDS: DULoxetine HCL 30 MG CAPSULE.DR PO SCH ×2 (08:21→20:49)
[2023-07-30] MEDS: FENOFIBRATE 54 MG TAB PO SCH (08:21)
[2023-07-30] MEDS: ISOSORBIDE MONONITRATE ER 30 MG TAB.ER.24H PO SCH (08:21)
[2023-07-30] MEDS: FAMOTIDINE 20 MG TAB PO SCH (08:21)
[2023-07-30 09:39] LABS: African American GFR (CKD) 35 (>60 ml/min/1.73 sqM); Anion Gap 9 mmol/L; Blood Urea Nitrogen 34 mg/dL (9-20); Calcium 8.9 mg/dL (8.4-10.2); Carbon Dioxide 24 mmol/L (22-30); Chloride 104 mmol/L (98-107); Glucose 161 mg/dL (74-99); Magnesium 2.1 mg/dL (1.6-2.3); Non-African American GFR(CKD) 31 (>60 ml/min/1.73 sqM); Potassium 4.5 mmol/L (3.5-5.1); Sodium 137 mmol/L (137-145)
[2023-07-30 11:17] LABS: Glucose,Whole Blood 190 mg/dL (70-110)
--- NOTE | 2023-07-30 11:25 | P.PN ---
Subjective Patient is seen in follow-up for acute kidney injury on chronic kidney disease. Renal function improving. Diuretics held. Oral intake is good. No vomiting or diarrhea. Hemodynamically stable. No active complaints. Vital signs are stable. General: No acute distress. HEENT: Head exam is unremarkable. LUNGS: No audible rhonchi or wheezes. HEART: Rate and Rhythm are regular. ABDOMEN: Nontender. EXTREMITITES: No edema. Objective - Vital Signs Vital signs: Vital Signs Temp 98.0 F 07/30/23 07:21 Pulse 65 07/30/23 08:47 Resp 16 07/30/23 08:47 BP 121/68 07/30/23 08:00 Pulse Ox 96 07/30/23 07:21 FiO2 Intake & Output 07/29/23 07/30/23 07/30/23 18:59 06:59 18:59 Intake Total 900 Balance 900 Intake: Oral 900 Other: # Voids 1 0 - Labs CBC & Chem 7: 07/27/23 22:33 07/30/23 07:13 Labs: Abnormal Lab Results - Last 24 Hours (Table) 07/28/23 07/29/23 07/29/23 Range/Units 18:15 11:20 16:21 BUN (9-20) mg/dL Creatinine (0.66-1.25) mg/dL Glucose (74-99) mg/dL POC Glucose (mg/dL) 176 H 175 H (70-110) mg/dL Urine Glucose (UA) 4+ H (Negative) 07/29/23 07/30/23 07/30/23 Range/Units 19:22 05:45 07:13 BUN 34 H (9-20) mg/dL Creatinine 2.34 H (0.66-1.25) mg/dL Glucose 161 H (74-99) mg/dL POC Glucose (mg/dL) 210 H 199 H (70-110) mg/dL Urine Glucose (UA) (Negative) 07/30/23 Range/Units 11:16 BUN (9-20) mg/dL Creatinine (0.66-1.25) mg/dL Glucose (74-99) mg/dL POC Glucose (mg/dL) 190 H (70-110) mg/dL Urine Glucose (UA) (Negative) Assessment and Plan Plan: Assessment: 1. Acute kidney injury secondary to vasomotor nephropathy from antihypertensives and diuretics, hypovolemia. Creatinine 3.08 on admission - 2.34 today. Ultrasound from 06/29/2023 showed atrophic right kidney with no hydronephrosis. UA with 1+ protein. 2. Chronic kidney disease stage IIIB with baseline creatinine 1.8-2 secondary to diabetic kidney disease. 3. Diabetes mellitus. 4. Coronary artery disease with prior stenting and CABG. 5. Metabolic acidosis secondary to acute kidney injury. Better. 6. Chronic diastolic CHF. Plan: Currently off IV fluids. Oral intake is good. Hold diuretics and entresto. Resume jardiance. Avoid nephrotoxins. Continue to monitor renal function and urine output. Advised patient to monitor his weight closely at home and to notify physician and start lasix 40 mg qday if develops edema or gains more than 3 pounds in 1 week duration. Repeat BMP and magnesium level 2-3 days postdischarge. Follow-up outpatient in 1 week if still in [place]. Otherwise he was advised to establish care with physicians in [place].
[2023-07-30] MEDS: DAPAGLIFLOZIN PROPANEDIOL 5 MG TABLET PO SCH (12:24)
[2023-07-30 16:42] LABS: Glucose,Whole Blood 190 mg/dL (70-110)
[2023-07-30 19:26] LABS: Glucose,Whole Blood 169 mg/dL (70-110)
[2023-07-30] MEDS: metFORMIN 500 MG TAB PO SCH (20:49)
[2023-07-30] MEDS: ATORVASTATIN 40 MG TAB PO SCH (20:49)
--- NOTE | 2023-07-30 23:59 | PN ---
PROGRESS NOTE DATE OF SERVICE: 07/30/2023 CHIEF COMPLAINT: DEBBIE with CKD. HISTORY OF PRESENT ILLNESS: This is a gentleman who is feeling fairly well. BUN is still elevated at 34 with a creatinine of 2.34. Blood sugars are also slightly elevated being increased. PHYSICAL EXAMINATION: CHEST: Clear. CARDIAC: Normal. ABDOMEN: Soft, nontender. IMPRESSION: 1. Acute kidney injury. 2. Chronic renal failure. 3. Congestive heart failure. 4. Insulin-dependent diabetes mellitus, uncontrolled. PLAN: 1. Increase insulin. 2. Continue to follow his renal function. MMODL / IJN: [id number] /
[2023-07-31 06:00] LABS: Glucose,Whole Blood 177 mg/dL (70-110)
[2023-07-31] MEDS ORDERED: INSULIN DETEMIR (LEVEMIR) 100 UNIT/ML SYR SQ SCH (07:00)
[2023-07-31] MEDS: SYMBICORT 160-4.5 MCG INHALER INHALATION SCH (08:54)
[2023-07-31] MEDS: MAGNESIUM OXIDE 400 MG TAB PO SCH (10:14)
[2023-07-31] MEDS: ASPIRIN 81 MG PO SCH (10:14)
[2023-07-31] MEDS: AMIODARONE 200 MG TAB PO SCH (10:14)
[2023-07-31] MEDS: DAPAGLIFLOZIN PROPANEDIOL 5 MG TABLET PO SCH (10:14)
[2023-07-31] MEDS: carvediloL 12.5 MG TAB PO SCH (10:15)
[2023-07-31] MEDS: ISOSORBIDE MONONITRATE ER 30 MG TAB.ER.24H PO SCH (10:15)
[2023-07-31] MEDS: DULoxetine HCL 30 MG CAPSULE.DR PO SCH (10:15)
[2023-07-31] MEDS: FENOFIBRATE 54 MG TAB PO SCH (10:15)
[2023-07-31] MEDS: PANTOPRAZOLE 40 MG TABLET PO SCH (10:15)
[2023-07-31] MEDS: COLCHICINE 0.6 MG EACH PO SCH (10:15)
[2023-07-31] MEDS: CLOPIDOGREL 75 MG TAB PO SCH (10:15)
[2023-07-31] MEDS: metFORMIN 500 MG TAB PO SCH (10:15)
[2023-07-31] MEDS: FAMOTIDINE 20 MG TAB PO SCH (10:15)
[2023-07-31] MEDS: APIXABAN 5 MG TAB PO SCH (10:15)
[2023-07-31] MEDS: NICOTINE 14MG/24HR PATCH TRANSDERM SCH (10:16)
--- NOTE | 2023-07-31 11:32 | P.PN ---
Subjective Patient is seen in follow-up for acute kidney injury on chronic kidney disease. Renal function improving. Diuretics held. Oral intake is good. No vomiting or diarrhea. Hemodynamically stable. No active complaints. Vital signs are stable. General: No acute distress. HEENT: Head exam is unremarkable. LUNGS: No audible rhonchi or wheezes. HEART: Rate and Rhythm are regular. ABDOMEN: Nontender. EXTREMITITES: No edema. Objective - Vital Signs Vital signs: Vital Signs Temp 98.0 F 07/31/23 07:51 Pulse 68 07/31/23 07:51 Resp 19 07/31/23 07:51 BP 139/88 07/31/23 07:51 Pulse Ox 94 L 07/31/23 07:51 FiO2 Intake & Output 07/30/23 07/31/23 07/31/23 18:59 06:59 18:59 Intake Total 240 Output Total 1 1 Balance 239 -1 Intake: Oral 240 Output: Urine 1 1 Other: # Voids 0 - Labs CBC & Chem 7: 07/27/23 22:33 07/30/23 07:13 Labs: Abnormal Lab Results - Last 24 Hours (Table) 07/30/23 07/30/23 07/31/23 Range/Units 16:39 19:25 05:59 POC Glucose (mg/dL) 190 H 169 H 177 H (70-110) mg/dL Assessment and Plan Plan: Assessment: 1. Acute kidney injury secondary to vasomotor nephropathy from antihypertensives and diuretics, hypovolemia. Creatinine 3.08 on admission - 2.34 yesterday. Ultrasound from 06/29/2023 showed atrophic right kidney with no hydronephrosis. UA with 1+ protein. 2. Chronic kidney disease stage IIIB with baseline creatinine 1.8-2 secondary to diabetic kidney disease. 3. Diabetes mellitus. 4. Coronary artery disease with prior stenting and CABG. 5. Metabolic acidosis secondary to acute kidney injury. Better. 6. Chronic diastolic CHF. Plan: Currently off IV fluids. Oral intake is good. Hold diuretics and entresto. Resumed jardiance. Avoid nephrotoxins. Continue to monitor renal function and urine output. Advised patient to monitor his weight closely at home and to notify physician and start lasix 40 mg qday if develops edema or gains more than 3 pounds in 1 week duration. Repeat BMP and magnesium level 2-3 days postdischarge. Follow-up outpatient in 1 week if still in [place]. Otherwise he was advised to establish care with physicians in [place].
[2023-07-31 11:46] LABS: Glucose,Whole Blood 164 mg/dL (70-110)
[2023-07-31 15:03] VITALS: BP 123/74; PULSE 58; RESP 18; TEMP 97.9
--- NOTE | 2023-07-31 21:17 | DS ---
DISCHARGE SUMMARY CHIEF COMPLAINT: Excessive thirst and acute kidney injury. HISTORY OF PRESENT ILLNESS AND PHYSICAL EXAMINATION: Details of this man's history and physical can be found in the initial workup. LABORATORY STUDIES: While he was in the hospital, he had laboratory studies, details of which can be found in the laboratory section of his chart. COURSE IN THE HOSPITAL: After admission, he was placed on bedrest, started on intravenous fluids and he was seen and followed by Nephrology. After hydration, his renal function did improve. He is known to have chronic kidney disease. He was stable and it was felt that he could be discharged and he will leave the hospital on the . He is planning on leaving town. If he does not, he will be followed up in the office. FINAL DIAGNOSES: 1. Acute kidney injury. 2. Chronic kidney disease. 3. Coronary artery disease. 4. Atherosclerotic cardiomyopathy. 5. Congestive heart failure. 6. Type 2 diabetes mellitus. OPERATIONS: None. CONSULTATIONS: Nephrology. He is improved. MMWINIFREDL / YOKON: [id number] /
== END 2023-07-31 16:48 | disposition home or self-care (01) | DRG 683 ==
LOC: EC 21:13 → 4SSUR 07-28 05:05
PROVIDERS: ADMIT Family Medicine; ATTEND Family Medicine
DX: N17.0 Acute kidney failure with tubular necrosis (principal); E87.20 Acidosis, unspecified; I13.0 Hypertensive heart and chronic kidney disease with heart failure and stage 1 through stage 4 chronic kidney disease, or unspecified chronic kidney disease; I42.9 Cardiomyopathy, unspecified; I50.32 Chronic diastolic (congestive) heart failure; E11.65 Type 2 diabetes mellitus with hyperglycemia; I48.91 Unspecified atrial fibrillation; N18.32 Chronic kidney disease, stage 3b; D63.1 Anemia in chronic kidney disease; E78.5 Hyperlipidemia, unspecified; E86.1 Hypovolemia; I25.10 Atherosclerotic heart disease of native coronary artery without angina pectoris; J44.89 Other specified chronic obstructive pulmonary disease; N26.1 Atrophy of kidney (terminal); G47.33 Obstructive sleep apnea (adult) (pediatric); H91.93 Unspecified hearing loss, bilateral; F17.210 Nicotine dependence, cigarettes, uncomplicated; K21.9 Gastro-esophageal reflux disease without esophagitis; Z79.4 Long term (current) use of insulin; Z79.84 Long term (current) use of oral hypoglycemic drugs; Z82.49 Family history of ischemic heart disease and other diseases of the circulatory system; Z79.51 Long term (current) use of inhaled steroids; Z79.01 Long term (current) use of anticoagulants; Z79.02 Long term (current) use of antithrombotics/antiplatelets; Z79.82 Long term (current) use of aspirin; Z95.5 Presence of coronary angioplasty implant and graft; Z95.1 Presence of aortocoronary bypass graft; I25.2 Old myocardial infarction; Z79.899 Other long term (current) drug therapy; Z88.0 Allergy status to penicillin; Z88.2 Allergy status to sulfonamides; Z86.14 Personal history of Methicillin resistant Staphylococcus aureus infection; E11.22 Type 2 diabetes mellitus with diabetic chronic kidney disease
CPT/HCPCS: 36415; 51798; 80048; 80053; 81001; 81003; 82009; 83735; 85025; 94640; 96360; 96361; 99285

== ENCOUNTER 2023-08-02 20:39 | Emergency (ER) | payer OTHER ==
[2023-08-02 20:46] LABS: Glucose,Whole Blood 287 mg/dL (70-110)
[2023-08-02 21:05] VITALS: TEMP 98.8
[2023-08-02] MEDS ORDERED: SODIUM CHLORIDE 0.9% 1,000 ML IV STA (21:56)
--- NOTE | 2023-08-02 22:32 | ED ---
General Adult HPI - General Chief complaint: Recheck/Abnormal Lab/Rx Stated complaint: Frequent Urination, Wants Blood Sugar Checked Time Seen by Provider: 08/02/23 21:12 Source: patient Mode of arrival: ambulatory Limitations: no limitations - History of Present Illness Initial comments: 52-year-old male with a past medical history significant for diabetes presenting to the ED with a chief complaint of blood sugar check. Patient states that he has run out of glucometer test strips and notes that his insurance recently lapsed. Also notes that he has $0. Additionally, states he does not have a prescription for more test strips as he notes that he is moving to [place] tomorrow and has not established primary care yet in the area. Denies abdominal pain, nausea, vomiting, confusion, chest pain, shortness of breath. No other complaint. - Related Data Home Medications Medication Instructions Recorded Confirmed Budesonide/Formoterol Fumarate 2 puff INHALATION RT-BID 11/28/21 07/28/23 [Symbicort 160-4.5 Mcg Inhaler] Clopidogrel [Plavix] 75 mg PO DAILY 12/29/21 07/28/23 Empagliflozin [Jardiance] 25 mg PO DAILY 05/23/22 07/28/23 Amiodarone [Cordarone] 200 mg PO DAILY 07/05/22 07/28/23 Spironolactone [Aldactone] 50 mg PO BID 07/05/22 07/28/23 Albuterol Sulfate [Ventolin HFA] 1 puff INHALATION RT-Q6H PRN 06/21/23 07/28/23 Apixaban [Eliquis] 5 mg PO BID 06/21/23 07/28/23 Atorvastatin [Lipitor] 40 mg PO HS 06/21/23 07/28/23 Colchicine 0.3 mg PO BID 06/21/23 07/28/23 DULoxetine HCL [Cymbalta] 30 mg PO BID 06/21/23 07/28/23 Dulaglutide [Trulicity] 1.5 mg SQ Q7D 06/21/23 07/28/23 Fenofibrate [Lofibra] 54 mg PO DAILY 06/21/23 07/28/23 Insulin Glargine,Hum.rec.anlog 25 units SQ HS 06/21/23 07/28/23 [Lantus Solostar Pen] Isosorbide Mononitrate ER [Imdur] 30 mg PO DAILY 06/21/23 07/28/23 Nicotine 14Mg/24Hr Patch [Habitrol] 1 patch TRANSDERM DAILY 06/21/23 07/28/23 Pantoprazole [Protonix] 40 mg PO DAILY 06/21/23 07/28/23 Sacubitril/Valsartan [Entresto 49 1 tab PO BID 06/21/23 07/28/23 mg-51 mg Tablet] allopurinoL [Zyloprim] 300 mg PO DAILY 06/21/23 07/28/23 carvediloL [Coreg] 12.5 mg PO BID 06/21/23 07/28/23 metFORMIN HCL 1,000 mg PO BID 06/21/23 07/28/23 Previous Rx's Medication Instructions Recorded Acetaminophen Tab [Tylenol] 650 mg PO Q6HR PRN tab 06/26/23 Aspirin 81 mg PO DAILY tab 07/03/23 Magnesium Oxide [Mag-Ox] 400 mg PO BID #60 tab 07/04/23 Allergies Allergy/AdvReac Type Severity Reaction Status Date / Time Penicillins Allergy Anaphylaxis Verified 08/02/23 20:45 Sulfa (Sulfonamide Allergy Anaphylaxis Verified 08/02/23 20:45 Antibiotics) Review of Systems ROS Statement: Those systems with pertinent positive or pertinent negative responses have been documented in the HPI. ROS Other: All systems not noted in ROS Statement are negative. Past Medical History Past Medical History: Atrial Fibrillation, Asthma, Coronary Artery Disease (CAD), Heart Failure, COPD, Diabetes Mellitus, GERD/Reflux, Hyperlipidemia, Hypertension, Myocardial Infarction (LA), Renal Disease, Sleep Apnea/CPAP/BIPAP Additional Past Medical History / Comment(s): Pt recently admitted to [facility] on 12/29/21 with CHF. Other hx: NIDDM type II, CKD stage III, chronic anemia, CHLOE without device d/t insurance issues, mild COPD, [place] bilateral ears, gout. Last Myocardial Infarction Date:: 2008 History of Any Multi-Drug Resistant Organisms: MRSA Date of last positivie culture/infection: 10/2020 MDRO Source:: Right eye Past Surgical History: Adenoidectomy, Coronary Bypass/CABG, Heart Catheterization, Heart Catheterization With Stent, Tonsillectomy Additional Past Surgical History / Comment(s): cardiac stents x 5, quad bipass open heart 10/07/2021 Past Anesthesia/Blood Transfusion Reactions: Postoperative Nausea & Vomiting (PONV) Additional Past Anesthesia/Blood Transfusion Reaction / Comment(s): Has not had this reaction since he was 9 years old. Date of Last Stent Placement:: 2008 Past Psychological History: ADD/ADHD, Anxiety, Bipolar, Depression, PTSD Smoking Status: Current every day smoker Past Alcohol Use History: None Reported Past Drug Use History: None Reported - Past Family History Father Family Medical History: Cancer, Coronary Artery Disease (CAD), Myocardial Infarction (LA) Additional Family Medical History / Comment(s): at age 68 from mesothelioma, diagnosis of heart disease age of 60 Mother Family Medical History: Cancer, Coronary Artery Disease (CAD), Diabetes Melli tus, Liver Disease, Myocardial Infarction (LA) Additional Family Medical History / Comment(s): from liver cancer, diagnosed with heart disease before the age of 60 General Exam Limitations: no limitations General appearance: alert, in no apparent distress Eye exam: Present: normal appearance ENT exam: Present: mucous membranes moist Respiratory exam: Present: normal lung sounds bilaterally Cardiovascular Exam: Present: regular rate, normal rhythm GI/Abdominal exam: Present: soft Neurological exam: Present: alert, oriented X3 Skin exam: Present: warm, dry Course Vital Signs 08/02/23 20:41 Temperature 98.8 F Pulse Rate 112 H Respiratory 20 Rate Blood Pressure 150/88 O2 Sat by Pulse 97 Oximetry Medical Decision Making - Medical Decision Making Was pt. sent in by a medical professional or institution (AMINAH Talamantes, ENGINEERING EQUIPMENT OPERATOR, urgent care, hospital, or skilled nursing...) When possible be specific @ -No Did you speak to anyone other than the patient for history (EMS, parent, family, police, friend...)? What history was obtained from this source @ -No Did you review nursing and triage notes (agree or disagree)? Why? @ -I reviewed and agree with nursing and triage notes Were old charts reviewed (outside hosp., previous admission, EMS record, old EKG, old radiological studies, urgent care reports/EKG's, skilled nursing records)? Report findings @ -No old charts were reviewed Differential Diagnosis (chest pain, altered mental status, abdominal pain women, abdominal pain men, vaginal bleeding, weakness, fever, dyspnea, syncope, headache, dizziness, GI bleed, back pain, seizure, CVA, palpatations, mental health, musculoskeletal)? @ -not applicable EKG interpreted by me (3pts min.). @ -None X-rays interpreted by me (1pt min.). @ -None done CT interpreted by me (1pt min.). @ -None done U/S interpreted by me (1pt. min.). @ -None done What testing was considered but not performed or refused? (CT, X-rays, U/S, labs)? Why? @ -None What meds were considered but not given or refused? Why? @ -None Did you discuss the management of the patient with other professionals (professionals i.e. Dr., PA, ENGINEERING EQUIPMENT OPERATOR, lab, RT, psych nurse, social services specialist, oil furnace installer, teacher, botanical technical officer, mattress spring encaser)? Give summary @ -No Was smoking cessation discussed for >3mins.? @ -No Was critical care preformed (if so, how long)? @ -No Were there social determinants of health that impacted care today? How? (Homelessness, low income, unemployed, alcoholism, drug addiction, transportation, low edu. Level, literacy, decrease access to med. care, group home, rehab)? @ -No Was there de-escalation of care discussed even if they declined (Discuss DNR or withdrawal of care, Hospice)? DNR status @ -No What co-morbidities impacted this encounter? (DM, HTN, Smoking, COPD, CAD, Cancer, CVA, ARF, Chemo, Hep., AIDS, mental health diagnosis, sleep apnea, morbid obesity)? @ -Diabetes Was patient admitted / discharged? Hospital course, mention meds given and route, prescriptions, significant lab abnormalities, going to OR and other pertinent info. @ -Discharge 52-year-old male with a past medical history significant for diabetes presenting to the ED for blood sugar check due to running out of, test strips. Blood sugar here is 287. Currently, patient denies all symptoms. No abdominal pain, nausea, vomiting, confusion. At this time no signs or symptoms of DKA. We did have an extra glucometer with test strips in the ED. This was provided to patient. Patient also given IV fluids with improvement of blood sugar. Advised patient to maintain good eating and drinking habits and to establish primary care as soon as possible when he moves. At this time, patient still has good supplies of insulin. Discharged home in stable condition. Discussed return precautions with patient who verbalizes agreement. Undiagnosed new problem with uncertain prognosis? @ -No Drug Therapy requiring intensive monitoring for toxicity (Heparin, Nitro, Insulin, Cardizem)? @ -No Were any procedures done? @ -No Diagnosis/symptom? @ -Diabetes Acute, or Chronic, or Acute on Chronic? @ -Acute Uncomplicated (without systemic symptoms) or Complicated (systemic symptoms)? @ -Uncomplicated Side effects of treatment? @ -No Exacerbation, Progression, or Severe Exacerbation? @ -No Poses a threat to life or bodily function? How? (Chest pain, [place], [place], pneumonia, PE, COPD, DKA, ARF, appy, cholecystitis, CVA, Diverticulitis, Homicidal, Suicidal, threat to staff... and all critical care pts) @ -No - Lab Data Lab Results 08/02/23 Range/Units 20:45 POC Glucose (mg/dL) 287 H (70-110) mg/dL POC Glu [employer] Maker Mary Alice Parada Disposition Clinical Impression: Diabetes Disposition: HOME SELF-CARE Condition: Good Is patient prescribed a controlled substance at d/c from ED?: No Referrals: None,Stated [Primary Care Provider] - 1-2 days Time of Disposition: 22:41
[2023-08-03 00:24] LABS: Glucose,Whole Blood 142 mg/dL (70-110)
[2023-08-03 00:49] VITALS: BP 148/97; PULSE 89; RESP 17
== END 2023-08-03 00:46 | disposition home or self-care (01) ==
LOC: EC 20:39
DX: E11.22 Type 2 diabetes mellitus with diabetic chronic kidney disease (principal); I13.0 Hypertensive heart and chronic kidney disease with heart failure and stage 1 through stage 4 chronic kidney disease, or unspecified chronic kidney disease; I50.9 Heart failure, unspecified; N18.30 Chronic kidney disease, stage 3 unspecified; I25.10 Atherosclerotic heart disease of native coronary artery without angina pectoris; I25.2 Old myocardial infarction; J44.9 Chronic obstructive pulmonary disease, unspecified; I48.91 Unspecified atrial fibrillation; E78.5 Hyperlipidemia, unspecified; F31.9 Bipolar disorder, unspecified; F41.9 Anxiety disorder, unspecified; F17.200 Nicotine dependence, unspecified, uncomplicated; K21.9 Gastro-esophageal reflux disease without esophagitis; Z79.01 Long term (current) use of anticoagulants; Z79.02 Long term (current) use of antithrombotics/antiplatelets; Z79.84 Long term (current) use of oral hypoglycemic drugs; Z79.85 Long-term (current) use of injectable non-insulin antidiabetic drugs; Z79.51 Long term (current) use of inhaled steroids; Z79.899 Other long term (current) drug therapy; Z88.0 Allergy status to penicillin; Z88.2 Allergy status to sulfonamides; Z95.5 Presence of coronary angioplasty implant and graft
CPT/HCPCS: 36415; 96360; 99283